=== PATIENT | female | born 1940 | race Caucasian/White ===

== ENCOUNTER 2021-09-13 11:05 | Emergency (ER) | payer MEDICARE, OTHER, SELFPAY ==
--- NOTE | ~2021-09-13 | CT_ITS ---
EXAMINATION: CT ABDOMEN AND PELVIS WITH CONTRAST CLINICAL INFORMATION: Severe right abdominal pain COMPARISON: None TECHNIQUE: Multidetector volumetric images were obtained from the superior aspect of the liver through the pubic symphysis following administration 85 mL of Omnipaque 350 intravenous contrast. Sagittal and coronal reformatted images were obtained on the technologist's workstation. Oral contrast: Yes This CT examination was performed using dose optimization techniques as appropriate, variously including the following: *Automated exposure control *Adjustment of mA and/or kV according to patient size (this includes techniques or standardized protocols for targeted exams where dose is matched to indication/reason for exam; i.e. extremities or head) *Use of iterative reconstruction technique DLP: 736 mGy-cm FINDINGS: LUNG BASES: The visualized lung bases are unremarkable. LIVER, GALLBLADDER, AND BILIARY TREE: The liver is slightly low in attenuation suggestive of mild fatty infiltration. The liver is upper normal in size. The gallbladder has been removed. There is mild dilatation of the common bile duct measuring 1 cm. This may be normal postcholecystectomy. PANCREAS: Unremarkable. SPLEEN: Unremarkable. ADRENAL GLANDS: There is a 1.8 cm left adrenal lesion. Hounsfield units following contrast measure 72 which is indeterminate. The right adrenal gland is normal. KIDNEYS AND URETERS: There are bilateral renal cysts. No imaging follow-up is needed. There is mild right hydronephrosis. There is mild proximal right ureteral dilatation. No renal or ureteral stone is seen. BLADDER: Unremarkable. GASTROINTESTINAL TRACT: There is diverticulosis of the colon. No evidence of diverticulitis is seen. The small and large bowel is otherwise unremarkable. The appendix is not seen. There are no inflammatory changes in the right lower quadrant. The stomach is unremarkable. ABDOMINAL WALL: No significant hernia is appreciated. LYMPH NODES: Normal. VASCULAR: There is evidence of atherosclerotic disease. PELVIC VISCERA: There is a 5 cm left adnexal cyst. OSSEOUS STRUCTURES: There are degenerative changes of the spine. CT/CT abdomen pelvis w con IMPRESSION: Diverticulosis of the colon. No evidence of diverticulitis. Appendix not seen. No inflammatory changes in the right lower quadrant. Mild right hydronephrosis and proximal ureteral dilatation. No renal or ureteral stone seen. Bilateral renal cysts. 5 cm left ovarian cyst. Follow-up pelvic ultrasound recommended. Fleischner guidelines were followed.
--- NOTE | ~2021-09-13 | US_ITS ---
EXAMINATION: US PELVIS CLINICAL INFORMATION: Left ovarian cyst. Pain. History of hysterectomy. COMPARISON: CT from earlier the same day. TECHNIQUE: Ultrasound of the pelvis is performed using both transabdominal and transvaginal transducers along with Doppler. Transvaginal imaging is performed due to inadequate visualization transabdominally. Grayscale, color and Doppler imaging of the left ovary was performed including waveform spectral analysis. FINDINGS: The uterus has been removed. The cervix is normal appearing. The right ovary is not seen. The left ovary measures 6.2 x 4.3 x 5.6 cm. There is a 5.3 x 3.6 x 4.4 cm simple left ovarian cyst. Color and Doppler flow is seen in the left ovarian tissue surrounding the cyst. There is no evidence of left-sided torsion. There is no fluid in the pelvis. US/US pelvic and transvaginal IMPRESSION: Post hysterectomy. 5.3 x 3.6 x 4.4 cm simple left ovarian cyst. No evidence of left-sided torsion. Right ovary not seen. Given size and postmenopausal status, imaging follow up of the left ovarian cyst is recommended.
--- NOTE | ~2021-09-13 | US_ITS ---
EXAMINATION: US PELVIS CLINICAL INFORMATION: Left ovarian cyst. Pain. History of hysterectomy. COMPARISON: CT from earlier the same day. TECHNIQUE: Ultrasound of the pelvis is performed using both transabdominal and transvaginal transducers along with Doppler. Transvaginal imaging is performed due to inadequate visualization transabdominally. Grayscale, color and Doppler imaging of the left ovary was performed including waveform spectral analysis. FINDINGS: The uterus has been removed. The cervix is normal appearing. The right ovary is not seen. The left ovary measures 6.2 x 4.3 x 5.6 cm. There is a 5.3 x 3.6 x 4.4 cm simple left ovarian cyst. Color and Doppler flow is seen in the left ovarian tissue surrounding the cyst. There is no evidence of left-sided torsion. There is no fluid in the pelvis. US/US pelvic ovarian doppler IMPRESSION: Post hysterectomy. 5.3 x 3.6 x 4.4 cm simple left ovarian cyst. No evidence of left-sided torsion. Right ovary not seen. Given size and postmenopausal status, imaging follow up of the left ovarian cyst is recommended.
[2021-09-13 11:20] VITALS: BP 162/95; BP 182/139; PULSE 100; PULSE 94; RESP 20; TEMP 36.9; O2SAT 92; BMI 36.0
--- NOTE | 2021-09-13 11:35 | ECG_ITS ---
Test Reason : abdominal pain Blood Pressure : / mmHG Vent. Rate : 083 BPM Atrial Rate : 083 BPM P-R Int : 160 ms QRS Dur : 092 ms QT Int : 402 ms P-R-T Axes : 064 036 045 degrees QTc Int : 472 ms Normal sinus rhythm Normal ECG When compared with ECG of 19-JAN-2018 16:51, No significant change was found Referred By: Elsa Benavides Electronically Signed By:ULISES PATEL
--- NOTE | 2021-09-13 11:48 | ED_ITS ---
HPI - Abdominal Pain General Chief Complaint: Abdominal Pain Stated Complaint: flank pain x1 month Time Seen by Provider: 09/13/21 11:16 Source: patient Mode of arrival: EMS Limitations: no limitations History of Present Illness HPI narrative: Patient is a 81-year-old female with a past medical history of diabetes, single occurence of renal calculi, history of cholecystectomy, history of appendectomy. She presents to the emergency department via EMS with reports of severe right- sided abdominal pain. Onset of pain was 1 month ago. However when she woke this morning there is a severe increase in her pain, she presents and tears and guarding the right side of her abdomen, she contacted her primary care provider she was advised to come to the emergency department. She states that she has not yet been evaluated in person by her primary care provider for this. There is associated nausea but there is no vomiting. Pain is non-radiating. Unable to identify alleviating or aggravating factors. She has not taking any medication at home for the pain. She did receive IV Toradol from EMS without significant improvement. She denies fevers, chills, dizziness/lightheadedness, neck pain, chest pain, palpitations, shortness of breath, dyspnea on exertion, dysuria, urinary frequency/urgency/hesitancy, hematuria, constipation/diarrhea, bloody or dark stools. MD elicited complaint: abdominal pain Related Data Previous Rx's Medication Instructions Recorded tamsulosin 0.4 mg capsule 0.4 mg PO BEDTIME 7 Days #7 cap 09/13/21 Allergies Allergy/AdvReac Type Severity Reaction Status Date / Time bee pollen [BEE STINGS] Allergy Unknown UNKNOWN Verified 09/13/21 12:11 morphine [MORPHINE] Allergy Unknown UNKNOWN Verified 09/13/21 12:11 Penicillins [PENICILLINS] Allergy Unknown UNKNOWN Verified 09/13/21 12:11 Review of Systems Review of Systems Constitutional : No Weight loss, No Fever, No Chills ENT/Mouth :? No sore throat, No Rhinorrhea Eyes: No Swelling, No Redness Cardiovascular : No Chest Pain, No SOB, No Edema Respiratory : No Cough, No Sputum, No Wheezing Gastrointestinal : Positive Nausea, No Vomiting, No Diarrhea, positive abdominal pain, No Hematochezia, No Melena Genitourinary : No Dysuria, No Urinary Frequency, No Hematuria, No Urgency? Musculoskeletal : No joint pain, No Myalgias, No Joint Swelling Skin : No Skin Lesions, No rash Neuro : No Weakness, No Numbness, No Dizziness, No Headache Psych : No Anxiety/Panic, No Depression Heme/Lymph: No Bruising, No Lymphadenopathy Endocrine : No Polyuria, No Polydipsia All other systems reviewed and are negative. [facility] [place] Past Medical History Attestation statement: The following information was validated with the patient. Source: nursing notes reviewed Social History Social History Advance Directives: No Advance Directives Information Provided: No Physical Exam ED Vital Signs: Vital Signs - 24 hr 09/13/21 11:20 09/13/21 12:08 09/13/21 14:18 Temperature 98.4 F Pulse Rate 94 88 97 Respiratory Rate 20 16 14 Blood Pressure 182/139 H 154/69 H 185/95 H Pulse Oximetry 92 97 95 BMI result Body Mass Index 36.0 Vital signs have been reviewed and appeared to be correct. Blood pressure elevated 182/139 initially that is significantly improved on repeat 154/69. Heart rate normal.? Respiration rate normal. Temperature normal.? Oxygen saturation normal. Appearance: Alert.?Oriented to person, place and time. No acute distress.?Normal affect. Eyes: Pupils equal, round and reactive to light.? ENT: Pharynx normal.?? Neck: Normal inspection.? Neck supple.?? CVS: Heart sounds normal. Normal heart rate and rhythm.? Pulses normal.?? Respiratory: No respiratory distress.? Lung sounds clear to auscultation bilaterally?? Abdomen: Soft, reported tenderness with light palpation of the right side of the abdomen, guarding. Normoactive bowel sounds. No pulsatile mass.?? Skin: Skin warm and dry.? Normal skin color.? Normal skin turgor.?? Extremities: No lower extremity edema.? No calf ttp? Neuro: Moves all extremities spontaneously. Sensation intact bilaterally. CN II- XII intact. No focal neuro deficits. Ambulates with normal steady gait. Course Course Course Narrative: Patient is a 81-year-old female presented for evaluation of severe right-sided abdominal pain status post cholecystectomy and status post appendectomy in the past. Will obtain CBC to evaluate for leukocytosis/ anemia, CMP and lipase to evaluate for abnormal electrolytes /abnormal renal function/ abnormal hepatic/biliary function, EKG and troponin to evaluate for ischemia/ACS. Urinalysis to evaluate for infection. CT of the abdomen to evaluate for pyelonephritis/hydronephrosis, renal calculi. She will receive normal saline 1L IV fluid, Zofran 4 mg IV for nausea, given her allergy to morphine; anaphylaxis, will administer additional dose of Toradol 15 mg at this time, she already received a single dose of 15mg pre-hospital. Reevaluation(s) Reevaluation #1: COVID-19 testing is negative. CBC reveals mild leukocytosis of 13.4. CMP and lipase are unremarkable, glucose is elevated to 259 patient is diabetic. Troponin is negative, EKG normal sinus rhythm, ACS unlikely. Reports improvement in pain currently a 2/10. CT of the abdomen is pending at this time. Time: 13:30 Reevaluation #2: Urinalysis is significant for 1+ blood. CT of the abdomen reveals mild right hydronephrosis and proximal ureteral dilation, no renal or ureteral stones seen. Incidental finding of bilateral renal cysts and 5 cm left ovarian cyst, with recommendations for follow-up pelvic ultrasound. Currently, patient denies pain to the left side the abdomen, however referred visceral pain is possible, given the significant size will obtain ultrasound at this time to exclude torsion. Currently suspect right-sided pain is likely contributed to renal calculi based on history, physical exam, microscopic hematuria and CT findings, will provide pain control and treat with Flomax, and outpatient follow-up with Urology. Time: 15:00 Reevaluation #3: Patient updated on plan of care thus far. Patient signed out to Shwetha Archuleta NP pending pelvic ultrasound results. Time: 16:26 MDM - Abdominal Pain Medical Records Attestation: I reviewed the patient's medical records. Lab Data Attestation: I reviewed the patient's lab results. Result diagrams: 09/13/21 12:56 09/13/21 12:56 Labs: Lab Results 09/13/21 09/13/21 09/13/21 Range/Units 12:36 12:36 12:55 WBC (4.8-10.8) X10*3/uL RBC (4.20-5.50) X10*6/uL Hgb (12.0-16.0) g/dl Hct (37.0-47.0) % MCV (80.0-98.0) fL MCH (27.0-33.0) pg MCHC (31.0-35.0) g/dl RDW (11.0-16.0) % Plt Count (160-400) X10*3/uL MPV (9.4-12.3) fL Immature Gran % (Auto) (0.0-0.4) % Neut % (Auto) (45-73) % Lymph % (Auto) (20-40) % [place] % (Auto) (2-11) % Eos % (Auto) (0-4) % Baso % (Auto) (0-2) % Lymph # (Auto) (1.2-4.9) X10*3/uL [place] # (Auto) (0.1-1.2) X10*3/uL Eos # (Auto) (0.0-0.4) X10*3/uL Baso # (Auto) (0.0-0.2) X10*3/uL Abs Immat Gran (auto) (0.00-0.03) X10*3/uL Absolute Neuts (auto) (2.0-8.3) x10*3/uL Absolute Nucleated RBC (0.0-0.012) X10*3/uL Nucleated RBC % (auto) (0.0-0.2) /100WBC Sodium (135-145) mmol/L Potassium (3.3-5.1) mmol/L Chloride (96-108) mmol/L Carbon Dioxide (22-29) mmol/L Anion Gap (12-20) BUN (9-16) mg/dL Creatinine (0.5-1.4) mg/dL Estim Creat Clear Calc Estimated GFR POC Glucose (60-115) mg/dL Random Glucose (60-115) mg/dL Lactic Acid (0.5-2.0) mmol/L Calcium (8.4-10.2) mg/dL Total Bilirubin (0.0-1.0) mg/dL AST (5-31) U/L ALT (0-31) U/L Alkaline Phosphatase (39-117) U/L Troponin I High Sens < 3.5 (<3.5-17.0) ng/L Total Protein (6.5-8.0) g/dL Albumin (3.5-5.0) g/dL Lipase (8-78) U/L Urine Color YELLOW Urine Appearance HAZY Urine pH 6.0 (5.0-8.0) Ur Specific [place] 1.025 (1.005-1.025) Urine Protein 2+ H (NEG-TRACE) MG/DL Urine Glucose (UA) 100 H (NEG) MG/DL Urine Ketones NEG (NEG) MG/DL Urine Blood 1+ H (NEG) Urine Nitrite NEG (NEG) Ur Leukocyte Esterase NEG (NEG) Urine RBC 1-4 (0) /HPF Urine WBC 1-4 (0-4) /HPF Ur Squamous Epith Cells 2+ /LPF Urine Bacteria 2+ /LPF Urine Mucus 1+ /LPF COVID-19 (BECCA) Negative (Negative) COVID-19 Clin Com See Note 09/13/21 09/13/21 09/13/21 Range/Units 12:56 12:56 12:56 WBC 13.4 H (4.8-10.8) X10*3/uL RBC 4.98 (4.20-5.50) X10*6/uL Hgb 12.6 (12.0-16.0) g/dl Hct 41.2 (37.0-47.0) % MCV 82.7 (80.0-98.0) fL MCH 25.3 L (27.0-33.0) pg MCHC 30.6 L (31.0-35.0) g/dl RDW 15.9 (11.0-16.0) % Plt Count 403 H (160-400) X10*3/uL MPV 10.1 (9.4-12.3) fL Immature Gran % (Auto) 0.7 H (0.0-0.4) % Neut % (Auto) 71.5 (45-73) % Lymph % (Auto) 18.5 L (20-40) % [place] % (Auto) 5.7 (2-11) % Eos % (Auto) 3.2 (0-4) % Baso % (Auto) 0.4 (0-2) % Lymph # (Auto) 2.5 (1.2-4.9) X10*3/uL [place] # (Auto) 0.8 (0.1-1.2) X10*3/uL Eos # (Auto) 0.4 (0.0-0.4) X10*3/uL Baso # (Auto) 0.1 (0.0-0.2) X10*3/uL Abs Immat Gran (auto) 0.09 H (0.00-0.03) X10*3/uL Absolute Neuts (auto) 9.6 H (2.0-8.3) x10*3/uL Absolute Nucleated RBC 0.000 (0.0-0.012) X10*3/uL Nucleated RBC % (auto) 0.0 (0.0-0.2) /100WBC Sodium 138 (135-145) mmol/L Potassium 4.5 (3.3-5.1) mmol/L Chloride 103 (96-108) mmol/L Carbon Dioxide 25 (22-29) mmol/L Anion Gap 15 (12-20) BUN 17 H (9-16) mg/dL Creatinine 1.04 (0.5-1.4) mg/dL Estim Creat Clear Calc 42.1 Estimated GFR 51 POC Glucose (60-115) mg/dL Random Glucose 259 H (60-115) mg/dL Lactic Acid 2.0 (0.5-2.0) mmol/L Calcium 9.3 (8.4-10.2) mg/dL Total Bilirubin 0.5 (0.0-1.0) mg/dL AST 21 (5-31) U/L ALT 18 (0-31) U/L Alkaline Phosphatase 89 (39-117) U/L Troponin I High Sens (<3.5-17.0) ng/L Total Protein 7.1 (6.5-8.0) g/dL Albumin 3.9 (3.5-5.0) g/dL Lipase 43 (8-78) U/L Urine Color Urine Appearance Urine pH (5.0-8.0) Ur Specific [place] (1.005-1.025) Urine Protein (NEG-TRACE) MG/DL Urine Glucose (UA) (NEG) MG/DL Urine Ketones (NEG) MG/DL Urine Blood (NEG) Urine Nitrite (NEG) Ur Leukocyte Esterase (NEG) Urine RBC (0) /HPF Urine WBC (0-4) /HPF Ur Squamous Epith Cells /LPF Urine Bacteria /LPF Urine Mucus /LPF COVID-19 (BECCA) (Negative) COVID-19 Clin Com 09/13/21 Range/Units 14:30 WBC (4.8-10.8) X10*3/uL RBC (4.20-5.50) X10*6/uL Hgb (12.0-16.0) g/dl Hct (37.0-47.0) % MCV (80.0-98.0) fL MCH (27.0-33.0) pg MCHC (31.0-35.0) g/dl RDW (11.0-16.0) % Plt Count (160-400) X10*3/uL MPV (9.4-12.3) fL Immature Gran % (Auto) (0.0-0.4) % Neut % (Auto) (45-73) % Lymph % (Auto) (20-40) % [place] % (Auto) (2-11) % Eos % (Auto) (0-4) % Baso % (Auto) (0-2) % Lymph # (Auto) (1.2-4.9) X10*3/uL [place] # (Auto) (0.1-1.2) X10*3/uL Eos # (Auto) (0.0-0.4) X10*3/uL Baso # (Auto) (0.0-0.2) X10*3/uL Abs Immat Gran (auto) (0.00-0.03) X10*3/uL Absolute Neuts (auto) (2.0-8.3) x10*3/uL Absolute Nucleated RBC (0.0-0.012) X10*3/uL Nucleated RBC % (auto) (0.0-0.2) /100WBC Sodium (135-145) mmol/L Potassium (3.3-5.1) mmol/L Chloride (96-108) mmol/L Carbon Dioxide (22-29) mmol/L Anion Gap (12-20) BUN (9-16) mg/dL Creatinine (0.5-1.4) mg/dL Estim Creat Clear Calc Estimated GFR POC Glucose 211 H (60-115) mg/dL Random Glucose (60-115) mg/dL Lactic Acid (0.5-2.0) mmol/L Calcium (8.4-10.2) mg/dL Total Bilirubin (0.0-1.0) mg/dL AST (5-31) U/L ALT (0-31) U/L Alkaline Phosphatase (39-117) U/L Troponin I High Sens (<3.5-17.0) ng/L Total Protein (6.5-8.0) g/dL Albumin (3.5-5.0) g/dL Lipase (8-78) U/L Urine Color Urine Appearance Urine pH (5.0-8.0) Ur Specific [place] (1.005-1.025) Urine Protein (NEG-TRACE) MG/DL Urine Glucose (UA) (NEG) MG/DL Urine Ketones (NEG) MG/DL Urine Blood (NEG) Urine Nitrite (NEG) Ur Leukocyte Esterase (NEG) Urine RBC (0) /HPF Urine WBC (0-4) /HPF Ur Squamous Epith Cells /LPF Urine Bacteria /LPF Urine Mucus /LPF COVID-19 (BECCA) (Negative) COVID-19 Clin Com Imaging Data CT scan - abdomen: Radiologist's impression: IMPRESSION: Diverticulosis of the colon. No evidence of diverticulitis. Appendix not seen. No inflammatory changes in the right lower quadrant. Mild right hydronephrosis and proximal ureteral dilatation. No renal or ureteral stone seen. Bilateral renal cysts. 5 cm left ovarian cyst. Follow-up pelvic ultrasound recommended. ECG Data Attestation: I personally reviewed and interpreted this ECG as follows: ECG interpretation date: 09/13/21 ECG interpretation time: 12:43 Prior ECG tracings: available for review Interpretation: Rate: Normal sinus rhythm Rhythm:? 83 [place]:? Normal Normal P waves.? Normal HALEY.?? Normal QRS complex.?? ST T wave :??No ST elevation, ST depression, T-wave inversion qTC: 472 prior studies:? January 2018 The study has been interpreted contemporaneously by me. Discharge Plan Discharge Clinical Impression: Calculus of kidney, Hydronephrosis, Left ovarian cyst Patient Disposition: Still a Patient Instructions: Kidney Stones (ED), Hydronephrosis (ED) Additional Instructions: The CT of your abdomen reveals mild swelling of your right kidney, and your urine testing reveals microscopic blood, it is most likely that you have a kidney stone that was not visualized on the CT scan. Please stay well hydrated. You have been given a new prescription for medication called tamsulosin please take this in the evening. You have been provided with contact information for urology and I would recommend scheduling a follow-up appointment with their office next week. You may return to the emergency department with any new or worsening signs or symptoms; this includes but is not limited to fevers, chills, chest pain, shortness of breath, nausea with persistent vomiting severe worsening abdominal pain, blood in urine, pain on urination, inability to urinate. The CT scan of your abdomen for revealed a 5 cm cyst to the left ovary. We performed an ultrasound for better visualization. Prescriptions: New tamsulosin 0.4 mg capsule 0.4 mg PO BEDTIME 7 Days Qty: 7 0RF Referrals: Sina Queen MD [Physician] - 2 days Alfredo Hannon MD [Physician] - 2 days (left ovarian cyst)
[2021-09-13 12:08] VITALS: BP 154/69; PULSE 88; RESP 16; O2SAT 97
[2021-09-13] MEDS: ondansetron HCL 4 MG/2 ML VIAL IVPUSH (12:11)
[2021-09-13] MEDS: 0.9 % Sodium Chloride 1,000 ML 999 ML IV (12:19)
[2021-09-13] MEDS: Ketorolac Tromethamine 15 MG/ML VIAL IVPUSH (12:19)
[2021-09-13 12:47] LABS: Appearance Urine HAZY; Color Urine YELLOW; Glucose Urine UA 100 MG/DL (NEG); Leukocyte Esterase Urine NEG (NEG); Nitrite Urine NEG (NEG); Specific Gravity - Urine 1.025 (1.005-1.025); UACC Culture Trigger NO; Urine Blood 1+ (NEG); Urine Ketones NEG (NEG); Urine Protein 2+ MG/DL (NEG-TRACE)
[2021-09-13 12:59] LABS: MANUAL DIFF FLAG NO
[2021-09-13 13:00] LABS: COVID-19 Test Negative (Negative); IDNOW Serial# 16C4AD1C
[2021-09-13 13:07] LABS: Basophils Absolute Auto 0.1 X10*3/uL (0.0-0.2); Basophils Percent Auto 0.4 % (0-2); Eosinophils Absolute Auto 0.4 X10*3/uL (0.0-0.4); Eosinophils Percent Auto 3.2 % (0-4); Hematocrit 41.2 % (37.0-47.0); Hemoglobin 12.6 g/dl (12.0-16.0); Imm Gran Abs Auto 0.09 X10*3/uL (0.00-0.03); Imm Gran Pct Auto 0.7 % (0.0-0.4); Lymphocytes Absolute Auto 2.5 X10*3/uL (1.2-4.9); Lymphocytes Percent Auto 18.5 % (20-40); Mean Corpuscular HGB Conc 30.6 g/dl (31.0-35.0); Mean Corpuscular Hemoglobin 25.3 pg (27.0-33.0); Mean Corpuscular Volume 82.7 fL (80.0-98.0); Mean Platelet Volume 10.1 fL (9.4-12.3); Monocytes Absolute Auto 0.8 X10*3/uL (0.1-1.2); Monocytes Percent Auto 5.7 % (2-11); Neutrophils Absolute Auto 9.6 x10*3/uL (2.0-8.3); Neutrophils Percent Auto 71.5 % (45-73); Platelet Count 403 X10*3/uL (160-400); Red Blood Count 4.98 X10*6/uL (4.20-5.50); Red Cell Distribution Width 15.9 % (11.0-16.0); White Blood Count 13.4 X10*3/uL (4.8-10.8)
[2021-09-13 13:16] LABS: Alanine Aminotransferase 18 U/L (0-31); Albumin Level 3.9 g/dL (3.5-5.0); Alkaline Phosphatase 89 U/L (39-117); Anion Gap 15 (12-20); Aspartate Amino Transferase 21 U/L (5-31); Bilirubin Total 0.5 mg/dL (0.0-1.0); Blood Urea Nitrogen 17 mg/dL (9-16); Calcium 9.3 mg/dL (8.4-10.2); Carbon Dioxide 25 mmol/L (22-29); Chloride 103 mmol/L (96-108); Creatinine Clr Calc Pharmacy 42.1; Estimated Glomerular Filt Rate 51; Glucose Random 259 mg/dL (60-115); Lipase 43 U/L (8-78); Potassium 4.5 mmol/L (3.3-5.1); Sodium 138 mmol/L (135-145); Total Protein 7.1 g/dL (6.5-8.0)
[2021-09-13 13:20] LABS: Bacteria Urine 2+ /LPF; Mucus Urine 1+ /LPF; Squamous Epithelial Cell Urine 2+ /LPF
[2021-09-13 13:21] LABS: Troponin-I High Sensitivity < 3.5 ng/L (<3.5-17.0)
[2021-09-13] MEDS: iohexoL 350 MG/ML 100 ML INFUS..BTL IV (13:54)
[2021-09-13 14:18] VITALS: BP 185/95; PULSE 97; RESP 14; O2SAT 95
[2021-09-13 14:33] LABS: Glucose, Whole Blood 211 mg/dL (60-115)
[2021-09-13 16:34] VITALS: BP 164/93; PULSE 93; RESP 16; TEMP 36.8; O2SAT 94
== END 2021-09-13 18:12 | disposition home or self-care (01) ==
PROVIDERS: Nurse Practitioner Family; Emergency Provider Emergency Medicine; PCP Hospitalist
DX: N13.2 Hydronephrosis with renal and ureteral calculous obstruction (principal); N83.202 Unspecified ovarian cyst, left side; K57.30 Diverticulosis of large intestine without perforation or abscess without bleeding; R10.31 Right lower quadrant pain; Z20.822 Contact with and (suspected) exposure to COVID-19; Z79.899 Other long term (current) drug therapy
CPT/HCPCS: 74177; 76830; 76856; 80053; 81001; 81003; 82947; 83605; 83690; 84484; 85025; 87635; 93005; 93975; 96361; 96374; 96375; 99284; J1885; J2405; Q9967

== ENCOUNTER 2021-09-17 11:55 | Emergency (ER) | payer MEDICARE, OTHER, SELFPAY ==
--- NOTE | ~2021-09-17 | CT_ITS ---
EXAMINATION: CT ABDOMEN AND PELVIS WITH CONTRAST CLINICAL INFORMATION: Right lower quadrant pain. COMPARISON: Previous CT of the abdomen and pelvis 09/13/2021. TECHNIQUE: Multidetector volumetric images were obtained from the superior aspect of the liver through the pubic symphysis following administration 85 mL of Omnipaque 350 intravenous contrast. Sagittal and coronal reformatted images were obtained on the technologist's workstation. Oral contrast: Yes This CT examination was performed using dose optimization techniques as appropriate, variously including the following: *Automated exposure control *Adjustment of mA and/or kV according to patient size (this includes techniques or standardized protocols for targeted exams where dose is matched to indication/reason for exam; i.e. extremities or head) *Use of iterative reconstruction technique DLP: 628 mGy-cm FINDINGS: LUNG BASES: The visualized lung bases are unremarkable. LIVER, GALLBLADDER, AND BILIARY TREE: The liver is normal in size, shape, and attenuation. No focal hepatic lesion or intrahepatic biliary ductal dilatation is present. The gallbladder has been removed. There is mild dilatation of the common bile duct measuring up to 1.2 cm. This may be normal postcholecystectomy. PANCREAS: Unremarkable. SPLEEN: Unremarkable. ADRENAL GLANDS: There is a 1.8 cm left adrenal lesion that is similar to previous exam. Measure 75 which is indeterminate. The right adrenal gland is normal. KIDNEYS AND URETERS: There are bilateral renal cysts. The kidneys are otherwise unremarkable. Previously identified mild right hydronephrosis and proximal ureteral dilatation is no longer seen. BLADDER: Not optimally distended. GASTROINTESTINAL TRACT: There is diverticulosis of the colon. No evidence of diverticulitis is seen. Small and large bowel is otherwise unremarkable. The appendix is not identified. There are no inflammatory changes in the right lower quadrant. There may be a small esophageal hernia. The stomach is otherwise unremarkable. ABDOMINAL WALL: No significant hernia is appreciated. LYMPH NODES: Normal. VASCULAR: There is atherosclerotic disease. No aneurysm is seen. PELVIC VISCERA: The uterus may have been removed. There is a 5 cm left adnexal cyst that is stable. OSSEOUS STRUCTURES: There are degenerative changes of the spine. CT/CT abdomen pelvis w con IMPRESSION: Diverticulosis of the colon. No evidence of colitis or diverticulitis. Appendix not seen. No inflammatory changes in the right lower quadrant. Post cholecystectomy. Mild dilatation of the common bile duct which may be normal postcholecystectomy. Bilateral renal cysts. Stable indeterminate 1.8 cm left adrenal lesion. Comparison with old outside exams if available is recommended. If no old exams are available or this is a new finding, dedicated CT or MRI according to adrenal gland protocol would be recommended. Stable left ovarian cyst. Fleischner guidelines were followed.
--- NOTE | ~2021-09-17 | XR_ITS ---
EXAMINATION: XR CHEST CLINICAL INFORMATION: Right-sided abdominal pain. COMPARISON: Chest 01/19/2018 TECHNIQUE: Frontal view of the chest was obtained. FINDINGS: Both lungs are fairly well-expanded and clear of acute pneumonic process. The heart size and pulmonary vascularity is normal. There is mild spondylosis dorsal spine. No lytic process seen. XR/XR chest 1V IMPRESSION: Unremarkable chest exam.
[2021-09-17 12:02] VITALS: BP 193/95; PULSE 95; O2SAT 95
[2021-09-17 12:12] VITALS: BP 160/87; PULSE 102; RESP 18; TEMP 36.7; O2SAT 99; BMI 36.0
--- NOTE | 2021-09-17 12:12 | ECG_ITS ---
Test Reason : PAIN ABD Blood Pressure : / mmHG Vent. Rate : 097 BPM Atrial Rate : 097 BPM P-R Int : 156 ms QRS Dur : 096 ms QT Int : 382 ms P-R-T Axes : 068 055 044 degrees QTc Int : 485 ms Normal sinus rhythm Normal ECG When compared with ECG of 13-SEP-2021 12:02, No significant change was found Referred By: Leonor Talbot Electronically Signed By:Darius Boo
--- NOTE | 2021-09-17 12:14 | ED.ABDPAIN ---
HPI - Abdominal Pain General Chief Complaint: Urogenital-Female Stated Complaint: KNOWN KIDNEY STONE PAIN Time Seen by Provider: 09/17/21 12:03 Source: patient and EMS Mode of arrival: EMS Limitations: no limitations History of Present Illness HPI narrative: 81-year-old female came in by ambulance for evaluation of right-sided abdominal pain. Right-sided abdominal pain started about a month ago, patient is localized to the right side of the abdomen and right flank pain, pain is intermittent comes and goes, described as severe 10/10, pain is accompanied with nausea and vomiting, but of fever chills or diarrhea no recent loss of weight, patient was seen on Thursday had a CT of the abdomen and pelvis which did not confirm a diagnosis of kidney stone but showed hydronephrosis, patient also found to have left ovarian cyst that was confirmed by ultrasound 5 cm ovarian cyst. No aggravating factors for the pain, no relieving factor. Patient had a history of appendectomy and cholecystectomy. Related Data Previous Rx's Medication Instructions Recorded tamsulosin 0.4 mg capsule 0.4 mg PO BEDTIME 7 Days #7 cap 09/13/21 oxycodone 5 mg tablet 5 mg PO BID PRN #10 tab 09/17/21 Allergies Allergy/AdvReac Type Severity Reaction Status Date / Time bee pollen [BEE STINGS] Allergy Unknown UNKNOWN Verified 09/13/21 12:11 morphine [MORPHINE] Allergy Unknown UNKNOWN Verified 09/13/21 12:11 Penicillins [PENICILLINS] Allergy Unknown UNKNOWN Verified 09/13/21 12:11 Review of Systems Review of Systems All other systems are reviewed and are negative Constitutional: Reports as per HPI and Reports no additional constitutional complaints Eyes: Reports as per HPI and Reports no additional eye complaints Reports system reviewed and no additional complaints, except as documented Cardiovascular: Reports as per HPI and Reports no additional cardiovascular complaints Respiratory: Reports as per HPI and Reports no additional respiratory complaints Gastrointestinal: Reports as per HPI and Reports no additional gastrointestinal complaints Genitourinary: Reports no additional female genitourinary complaints Musculoskeletal: Reports no additional musculoskeletal complaints Skin/Breast: Reports system reviewed and no additional complaints, except as docu Psychiatric: Reports no additional psychiatric complaints Endocrine: Reports no additional endocrine complaints Hematologic/Lymphatic: Reports no additional hematologic/lymphatic complaints Allergic/Immunologic: Reports no additional allergic/immunologic complaints Reports system reviewed and no additional complaints, except as documented and Reports Abnormal speech present [facility] Social History Social History Advance Directives: No Advance Directives Information Provided: No Physical Exam ED Vital Signs: Vital Signs - 24 hr 09/17/21 12:12 09/17/21 14:37 Temperature 98.1 F 97.8 F Pulse Rate 102 H 101 H Respiratory Rate 18 14 Blood Pressure 160/87 H 145/91 H Pulse Oximetry 99 95 BMI result Body Mass Index 36.0 Vital signs have been reviewed as appeared to be correct. Blood pressure normal. Heart rate normal. Respiration rate normal. Temperature normal. Oxygen saturation normal. Appearance: Alert. Oriented X3. No acute distress. Head: Normal external exam. Normocephalic. Atraumatic. No Cantor signs noted. No raccoon eyes noted Eyes: PERRLA. EOMI. Conjunctiva and sclera normal. Eyelids normal. ENT: TM's Normal. Pharynx normal. Uvula midline. Moist mucous membranes. No trismus noted. No drooling noted. No muffled voice noted. Neck: Normal inspection. Neck supple. FROM. No adenopathy. Thyroid Normal. No meningeal signs. No neck mass noted. CVS: Normal heart rate and rhythm. Heart sound normal. No murmurs noted. Pulses normal throughout. Respiratory: No respiratory distress. Painless inspiration. Breath sounds normal. No wheezes/rales/rhonchi noted. Chest nontender. No accessory muscle usage noted or decreased air movement noted. Abdomen: Soft and nontender. Bowel sounds normal in all 4 quadrants. No distention noted. No organomegaly noted. No visible injury noted. Back: No CVA tenderness. Full range of motion noted. Skin: Skin warm and dry. Normal skin color. Normal skin turgor. No rashes/lesions/lacerations noted. Extremities: No lower extremity edema. Extremities exhibit normal range of motion. Extremities nontender. Neuro: Oriented X 3. Cranial nerve exam: II-XII are grossly intact No motor deficit. No sensory deficit. Reflexes normal. Course Course Course Narrative: Assessment and plan. 81 years old female came in with chronic abdominal pain for a month, patient had a recent evaluation was sent home on tamsulosin which did not help her pain at home, came in with abdominal pain, patient used to take oxycodone for chronic pain. Lab finding is consistent with slight elevation of lipase about repeat CT of the abdomen pelvis with IV contrast showed no acute pancreatitis. Patient now feels better, hungry and tolerating p.o. intake. Patient was offered hospitalization for 1 day for observation and monitoring the abdominal pain but patient would like to go home. Will discharge patient home with oxycodone, patient was instructed to restrict fatty and greasy food. And follow-up with PCP. MDM - Abdominal Pain Medical Records Attestation: I reviewed the patient's medical records. Lab Data Attestation: I reviewed the patient's lab results. Result diagrams: 09/17/21 12:50 09/17/21 12:50 Labs: Lab Results 09/17/21 09/17/21 09/17/21 Range/Units 12:50 12:50 12:50 WBC 11.3 H (4.8-10.8) X10*3/uL RBC 5.17 (4.20-5.50) X10*6/uL Hgb 13.3 (12.0-16.0) g/dl Hct 42.1 (37.0-47.0) % MCV 81.4 (80.0-98.0) fL MCH 25.7 L (27.0-33.0) pg MCHC 31.6 (31.0-35.0) g/dl RDW 15.4 (11.0-16.0) % Plt Count 493 H (160-400) X10*3/uL MPV 9.6 (9.4-12.3) fL Immature Gran % (Auto) 0.6 H (0.0-0.4) % Neut % (Auto) 70.9 (45-73) % Lymph % (Auto) 19.5 L (20-40) % Hendry % (Auto) 5.8 (2-11) % Eos % (Auto) 2.7 (0-4) % Baso % (Auto) 0.5 (0-2) % Lymph # (Auto) 2.2 (1.2-4.9) X10*3/uL Hendry # (Auto) 0.7 (0.1-1.2) X10*3/uL Eos # (Auto) 0.3 (0.0-0.4) X10*3/uL Baso # (Auto) 0.1 (0.0-0.2) X10*3/uL Abs Immat Gran (auto) 0.07 H (0.00-0.03) X10*3/uL Absolute Neuts (auto) 8.0 (2.0-8.3) x10*3/uL Absolute Nucleated RBC 0.000 (0.0-0.012) X10*3/uL Nucleated RBC % (auto) 0.0 (0.0-0.2) /100WBC Sodium 133 L (135-145) mmol/L Potassium 3.9 (3.3-5.1) mmol/L Chloride 98 (96-108) mmol/L Carbon Dioxide 24 (22-29) mmol/L Anion Gap 15 (12-20) BUN 12 (9-16) mg/dL Creatinine 1.10 (0.5-1.4) mg/dL Estim Creat Clear Calc 38.2 Estimated GFR 48 Random Glucose 335 H (60-115) mg/dL Calcium 9.7 (8.4-10.2) mg/dL Total Bilirubin 0.5 (0.0-1.0) mg/dL Direct Bilirubin 0.2 (0.0-0.5) mg/dL AST 21 (5-31) U/L ALT 17 (0-31) U/L Alkaline Phosphatase 86 (39-117) U/L Troponin I High Sens < 3.5 (<3.5-17.0) ng/L B-Natriuretic Peptide 16 (<100) pg/mL Total Protein 6.9 (6.5-8.0) g/dL Albumin 3.8 (3.5-5.0) g/dL Lipase 252 H (8-78) U/L Urine Color Urine Appearance Urine pH (5.0-8.0) Ur Specific [place] (1.005-1.025) Urine Protein (NEG-TRACE) MG/DL Urine Glucose (UA) (NEG) MG/DL Urine Ketones (NEG) MG/DL Urine Blood (NEG) Urine Nitrite (NEG) Ur Leukocyte Esterase (NEG) Urine RBC (0) /HPF Urine WBC (0-4) /HPF Ur Squamous Epith Cells /LPF Urine Bacteria /LPF COVID-19 (BECCA) (Negative) COVID-19 Clin Com 09/17/21 09/17/21 Range/Units 12:50 14:36 WBC (4.8-10.8) X10*3/uL RBC (4.20-5.50) X10*6/uL Hgb (12.0-16.0) g/dl Hct (37.0-47.0) % MCV (80.0-98.0) fL MCH (27.0-33.0) pg MCHC (31.0-35.0) g/dl RDW (11.0-16.0) % Plt Count (160-400) X10*3/uL MPV (9.4-12.3) fL Immature Gran % (Auto) (0.0-0.4) % Neut % (Auto) (45-73) % Lymph % (Auto) (20-40) % Hendry % (Auto) (2-11) % Eos % (Auto) (0-4) % Baso % (Auto) (0-2) % Lymph # (Auto) (1.2-4.9) X10*3/uL Hendry # (Auto) (0.1-1.2) X10*3/uL Eos # (Auto) (0.0-0.4) X10*3/uL Baso # (Auto) (0.0-0.2) X10*3/uL Abs Immat Gran (auto) (0.00-0.03) X10*3/uL Absolute Neuts (auto) (2.0-8.3) x10*3/uL Absolute Nucleated RBC (0.0-0.012) X10*3/uL Nucleated RBC % (auto) (0.0-0.2) /100WBC Sodium (135-145) mmol/L Potassium (3.3-5.1) mmol/L Chloride (96-108) mmol/L Carbon Dioxide (22-29) mmol/L Anion Gap (12-20) BUN (9-16) mg/dL Creatinine (0.5-1.4) mg/dL Estim Creat Clear Calc Estimated GFR Random Glucose (60-115) mg/dL Calcium (8.4-10.2) mg/dL Total Bilirubin (0.0-1.0) mg/dL Direct Bilirubin (0.0-0.5) mg/dL AST (5-31) U/L ALT (0-31) U/L Alkaline Phosphatase (39-117) U/L Troponin I High Sens (<3.5-17.0) ng/L B-Natriuretic Peptide (<100) pg/mL Total Protein (6.5-8.0) g/dL Albumin (3.5-5.0) g/dL Lipase (8-78) U/L Urine Color YELLOW Urine Appearance HAZY Urine pH 6.5 (5.0-8.0) Ur Specific [place] 1.020 (1.005-1.025) Urine Protein 2+ H (NEG-TRACE) MG/DL Urine Glucose (UA) 250 H (NEG) MG/DL Urine Ketones 15 (NEG) MG/DL Urine Blood 1+ H (NEG) Urine Nitrite NEG (NEG) Ur Leukocyte Esterase NEG (NEG) Urine RBC 1-4 (0) /HPF Urine WBC 1-4 (0-4) /HPF Ur Squamous Epith Cells 4+ /LPF Urine Bacteria 4+ /LPF COVID-19 (BECCA) Negative (Negative) COVID-19 Clin Com See Note Imaging Data Abdomen CT with IV contrast.: Attestation: I personally reviewed and interpreted this imaging study as follows: Radiologist's impression: Diverticulosis of the colon. No evidence of colitis or diverticulitis. Appendix not seen. No inflammatory changes in the right lower quadrant. Post cholecystectomy. Mild dilatation of the common bile duct which may be normal postcholecystectomy. Bilateral renal cysts. Stable indeterminate 1.8 cm left adrenal lesion. Comparison with old outside exams if available is recommended. If no old exams are available or this is a new finding, dedicated CT or MRI according to adrenal gland protocol would be recommended. Stable left ovarian cyst. ECG Data Attestation: I personally reviewed and interpreted this ECG as follows: Interpretation: In normal sinus rhythm at 97 beats per minutes, normal axis deviation, normal intervals, no ST-T changes. Discharge Plan Discharge Clinical Impression: Chronic abdominal pain, Pancreatitis Patient Disposition: Home, Self-Care Instructions: Pancreatitis (ED) Prescriptions: New oxycodone 5 mg tablet 5 mg PO BID PRN (Reason: pain) Qty: 10 0RF No Action tamsulosin 0.4 mg capsule 0.4 mg PO BEDTIME 7 Days Qty: 7 0RF Referrals: Abare,Hunter [Primary Care Provider] - 2 days
[2021-09-17 12:55] LABS: MANUAL DIFF FLAG NO
[2021-09-17 13:00] LABS: Basophils Absolute Auto 0.1 X10*3/uL (0.0-0.2); Basophils Percent Auto 0.5 % (0-2); Eosinophils Absolute Auto 0.3 X10*3/uL (0.0-0.4); Eosinophils Percent Auto 2.7 % (0-4); Hematocrit 42.1 % (37.0-47.0); Hemoglobin 13.3 g/dl (12.0-16.0); Imm Gran Abs Auto 0.07 X10*3/uL (0.00-0.03); Imm Gran Pct Auto 0.6 % (0.0-0.4); Lymphocytes Absolute Auto 2.2 X10*3/uL (1.2-4.9); Lymphocytes Percent Auto 19.5 % (20-40); Mean Corpuscular HGB Conc 31.6 g/dl (31.0-35.0); Mean Corpuscular Hemoglobin 25.7 pg (27.0-33.0); Mean Corpuscular Volume 81.4 fL (80.0-98.0); Mean Platelet Volume 9.6 fL (9.4-12.3); Monocytes Absolute Auto 0.7 X10*3/uL (0.1-1.2); Monocytes Percent Auto 5.8 % (2-11); Neutrophils Percent Auto 70.9 % (45-73); Platelet Count 493 X10*3/uL (160-400); Red Blood Count 5.17 X10*6/uL (4.20-5.50); Red Cell Distribution Width 15.4 % (11.0-16.0); White Blood Count 11.3 X10*3/uL (4.8-10.8)
[2021-09-17 13:13] LABS: Alanine Aminotransferase 17 U/L (0-31); Albumin Level 3.8 g/dL (3.5-5.0); Alkaline Phosphatase 86 U/L (39-117); Anion Gap 15 (12-20); Aspartate Amino Transferase 21 U/L (5-31); Bilirubin Direct 0.2 mg/dL (0.0-0.5); Bilirubin Total 0.5 mg/dL (0.0-1.0); Blood Urea Nitrogen 12 mg/dL (9-16); Calcium 9.7 mg/dL (8.4-10.2); Carbon Dioxide 24 mmol/L (22-29); Chloride 98 mmol/L (96-108); Creatinine Clr Calc Pharmacy 38.2; Estimated Glomerular Filt Rate 48; Glucose Random 335 mg/dL (60-115); Lipase 252 U/L (8-78); Potassium 3.9 mmol/L (3.3-5.1); Sodium 133 mmol/L (135-145); Total Protein 6.9 g/dL (6.5-8.0)
[2021-09-17 13:16] LABS: COVID-19 Test Negative (Negative); IDNOW Serial# 16C4AD1C
[2021-09-17 13:18] LABS: B Type Natriuretic Peptide 16 pg/mL (<100); Troponin-I High Sensitivity < 3.5 ng/L (<3.5-17.0)
[2021-09-17] MEDS: ondansetron HCL 4 MG/2 ML VIAL IVPUSH (13:43)
[2021-09-17] MEDS: Morphine Sulfate 2 MG/ML CARTRIDGE 1 MG IVPUSH (13:43)
[2021-09-17] MEDS: 0.9 % Sodium Chloride 1,000 ML 999 ML IV (13:43)
[2021-09-17 14:37] VITALS: BP 145/91; PULSE 101; RESP 14; TEMP 36.6; O2SAT 95
[2021-09-17 14:45] LABS: Appearance Urine HAZY; Color Urine YELLOW; Glucose Urine UA 250 MG/DL (NEG); Leukocyte Esterase Urine NEG (NEG); Nitrite Urine NEG (NEG); PH 6.5 (5.0-8.0); UACC Culture Trigger NO; Urine Blood 1+ (NEG); Urine Ketones 15 MG/DL (NEG); Urine Protein 2+ MG/DL (NEG-TRACE)
[2021-09-17 14:52] LABS: Bacteria Urine 4+ /LPF; Squamous Epithelial Cell Urine 4+ /LPF
[2021-09-17] MEDS: iohexoL 350 MG/ML 100 ML INFUS..BTL IV (14:57)
== END 2021-09-17 18:30 | disposition home or self-care (01) ==
PROVIDERS: Emergency Provider Emergency Medicine; PCP Hospitalist
DX: K85.90 Acute pancreatitis without necrosis or infection, unspecified (principal); R10.9 Unspecified abdominal pain; R06.02 Shortness of breath; Z20.822 Contact with and (suspected) exposure to COVID-19; Z79.899 Other long term (current) drug therapy
CPT/HCPCS: 36415; 71045; 74177; 80048; 80076; 81001; 83690; 83880; 84484; 85025; 87635; 93005; 96361; 96374; 96375; 99283; 99284; J2270; J2405; Q9967

== ENCOUNTER 2021-11-25 08:45 | Emergency (ER) | payer MEDICARE, OTHER, SELFPAY ==
--- NOTE | 2021-11-25 | ECG_ITS ---
Test Reason : fall Blood Pressure : / mmHG Vent. Rate : 100 BPM Atrial Rate : 100 BPM P-R Int : 166 ms QRS Dur : 098 ms QT Int : 380 ms P-R-T Axes : 060 040 045 degrees QTc Int : 490 ms Normal sinus rhythm Prolonged QT Abnormal ECG When compared with ECG of 17-SEP-2021 12:39, No significant change was found Referred By: Generic ED Physician Electronically Signed By:ROYER OSBORNE MD
--- NOTE | ~2021-11-25 | CT_ITS ---
EXAMINATION: CT CHEST WITHOUT CONTRAST CLINICAL INFORMATION: Fall 4 days ago. Right-sided chest pain. COMPARISON: Previous chest x-ray September 2021 TECHNIQUE: Multidetector volumetric CT imaging of the chest was done. Axial MIP volume rendering provided. Sagittal and coronal reformatted images were obtained. This CT examination was performed using dose optimization techniques as appropriate, variously including the following: *Automated exposure control *Adjustment of mA and/or kV according to patient size (this includes techniques or standardized protocols for targeted exams where dose is matched to indication/reason for exam; i.e. extremities or head) *Use of iterative reconstruction technique DLP: 276 mGy-cm FINDINGS: LUNGS: There is subsegmental atelectasis at the lung bases. There are small left upper lobe nodules measuring 3 mm axial image 142 170 and 176 series 7. There is increased peribronchial attenuation of the area may be related to airways disease or tree-in-bud appearance. There is a 3 mm peripheral or subpleural right middle lobe nodule axial image 287 series 7. There is mild bilateral lower lobe bronchiectasis. MEDIASTINUM: The heart size is normal. There is coronary artery calcification. There is a trace pericardial fluid or thickening. There are the thoracic aorta is normal in caliber. There are no enlarged hilar or mediastinal lymph nodes. There is an esophageal hernia. PLEURA: There is a very small right pleural effusion. There is no left pleural effusion. There is no pneumothorax. AXILLA: No lymphadenopathy. UPPER ABDOMEN: Unremarkable. OSSEOUS STRUCTURES: There is a right anterior eighth rib fracture that may be recent. There is question of nondisplaced right anterior sixth and seventh rib fractures as well. There is some soft tissue swelling surrounding the right anterior eighth rib. There is a small lipoma in the left subscapularis muscle. There are degenerative changes of the thoracic spine. CT/CT chest wo con IMPRESSION: Nondisplaced right anterior eighth rib fracture and question right sixth and seventh anterior rib fractures as well. Subsegmental atelectasis at the lung bases. Tiny right pleural effusion. No pneumothorax. Small clustered left upper lobe nodules probably related to airways disease. Coronary artery calcification. Fleischner guidelines were followed.
--- NOTE | ~2021-11-25 | CT_ITS ---
EXAMINATION: CT ABDOMEN AND PELVIS WITHOUT CONTRAST CLINICAL INFORMATION: Fall 4 days ago. Right-sided back pain. COMPARISON: Previous CT of the abdomen and pelvis 09/17/2021. TECHNIQUE: Multidetector volumetric imaging was performed from the superior aspect of the liver through the pubic symphysis. Sagittal and coronal reformatted images were obtained on the technologist's workstation. This CT examination was performed using dose optimization techniques as appropriate, variously including the following: *Automated exposure control *Adjustment of mA and/or kV according to patient size (this includes techniques or standardized protocols for targeted exams where dose is matched to indication/reason for exam; i.e. extremities or head) *Use of iterative reconstruction technique DLP: 622 mGy-cm FINDINGS: LUNG BASES: See chest CT from the same day. LIVER, GALLBLADDER, AND BILIARY TREE: The liver is normal in size, contour and attenuation. The gallbladder has been removed. There is mild dilatation of the common bile duct measuring up to 1.2 cm. This may be normal postcholecystectomy and is unchanged. No focal liver lesion or intrahepatic biliary duct dilatation. PANCREAS: Unremarkable. SPLEEN: Unremarkable. ADRENAL GLANDS: Stable 1.8 cm left adrenal lesion. Hounsfield units without contrast measure 20 which is indeterminate. Normal right adrenal gland. KIDNEYS AND URETERS: Stable bilateral renal cysts. No imaging followup needed. Kidneys are otherwise unremarkable. BLADDER: Unremarkable. GASTROINTESTINAL TRACT: Diverticulosis of the colon. Small and large bowel are otherwise normal. Appendix not seen. No free air. Small esophageal hernia. Otherwise normal stomach. ABDOMINAL WALL: No significant hernia is appreciated. LYMPH NODES: Normal. VASCULAR: Atherosclerotic disease. No aneurysm. PELVIC VISCERA: The uterus may have been removed. Stable 5 cm left adnexal cyst. OSSEOUS STRUCTURES: Degenerative changes of the spine. Question recent appearing right anterior 7th rib fracture and anterior 8th rib fracture. CT/CT abdomen pelvis wo con IMPRESSION: No acute findings in the abdomen and pelvis. Diverticulosis. Stable left adnexal and bilateral renal cysts. Stable indeterminate left adrenal lesion. Esophageal hernia. Question recent right anterior fractures. Severe degenerative changes of the spine. Fleischner guidelines were followed.
--- NOTE | ~2021-11-25 | CT_ITS ---
EXAMINATION: CT HEAD WITHOUT CONTRAST CLINICAL INFORMATION: Fall, trauma, pain COMPARISON: None TECHNIQUE: Contiguous axial imaging was performed from the skull base to vertex without intravenous administration of contrast. Additional 2-D coronal and sagittal reformatted images are generated on the CT workstation and uploaded to PACS. This CT examination was performed using dose optimization techniques as appropriate, variously including the following: *Automated exposure control *Adjustment of mA and/or kV according to patient size (this includes techniques or standardized protocols for targeted exams where dose is matched to indication/reason for exam; i.e. extremities or head) *Use of iterative reconstruction technique DLP: 660 mGy-cm FINDINGS: There is an extra-axial mass right posterior temporal occipital region abutting the tentorium measuring approximately 2.5 x 2.0 x 2.3 cm. The lesion is mildly hyperintense with scattered peripheral calcification. There is focal erosion and hyperostotic changes in the inner table skull. Finding likely related to meningioma. There is no acute intracranial hemorrhage or hematoma or extra-axial fluid collection. The ventricles are normal in size and contour. There are moderate periventricular white matter gliosis and bilateral symmetric decreased attenuation anterior internal and external capsule. There is no midline shift or herniation. Orbits unremarkable. No acute territorial infarct. The remainder of the calvarium shows no fracture and there is no pneumocephalus. There is nonspecific increased bony attenuation right parasagittal vertex and right lateral calvarium. There is also focal decreased mineralization right lateral parietal bone series 5 image 30. No expansile lesion. Report called Ashley Salinas NP in the emergency department at [address]/CT head/brain wo con IMPRESSION: -Mass right temporal occipital region 2.5 cm, likely meningioma. -Moderate periventricular and basal ganglia gliosis. No mass effect. No acute territorial infarct. -Scattered subtle sclerotic and lucent foci right calvarium without expansion. -No acute intracranial hemorrhage, hydrocephalus, or midline shift. -Recommend MRI brain without and with gadolinium for further characterization.
--- NOTE | ~2021-11-25 | CT_ITS ---
EXAMINATION: CT CERVICAL SPINE WITHOUT CONTRAST CLINICAL INFORMATION: Fall, trauma, pain COMPARISON: CT had noncontrast 11/25/2021. TECHNIQUE: Multidetector volumetric CT imaging of the cervical spine is performed without contrast in the axial plane. Additional 2D reformatted coronal and sagittal images are generated on the CT workstation and uploaded to PACS. This CT examination was performed using dose optimization techniques as appropriate, variously including the following: *Automated exposure control *Adjustment of mA and/or kV according to patient size (this includes techniques or standardized protocols for targeted exams where dose is matched to indication/reason for exam; i.e. extremities or head) *Use of iterative reconstruction technique DLP: 471 mGy-cm FINDINGS: There is no radiolucent fracture line. No vertebral compression, destructive process, or prevertebral soft tissue swelling. The craniocervical junction is normal. There are degenerative changes between anterior arch C1 and the dens. There is straightening of the cervical lordosis degenerative disc changes are greatest at C6-C7. There are also degenerative changes at C4-C5 and C5-C6 with probable disc herniation C5-C6. There are multilevel degenerative changes facets throughout the cervical spine. There is borderline spondylolisthesis C4-C5 likely related to the degenerative changes. No perched facet. No apical pneumothorax or subcutaneous emphysema. Intracranial findings again noted. See CT head report for further information. Result called and discussed with Ashley Salinas NP in the emergency department at [address]/CT cervical spine wo con IMPRESSION: -No acute bony abnormality or prevertebral soft tissue swelling. -Multilevel degenerative disc and degenerative facet changes. -Probable disc protrusion/herniation C5-C6. -Borderline spondylolisthesis C4-C5, likely related to the degenerative changes. -Intracranial abnormalities as noted on CT had, separate report.
[2021-11-25 08:52] VITALS: BP 155/105; BP 162/80; PULSE 90; PULSE 99; RESP 16; TEMP 36.6; O2SAT 95; BMI 31.8
[2021-11-25 09:07] LABS: Glucose, Whole Blood 279 mg/dL (60-115)
[2021-11-25 09:28] VITALS: BP 163/83; PULSE 88; RESP 18; O2SAT 95
[2021-11-25 09:44] LABS: MANUAL DIFF FLAG NO
[2021-11-25 09:46] LABS: Basophils Percent Auto 0.3 % (0-2); Eosinophils Absolute Auto 0.4 X10*3/uL (0.0-0.4); Hematocrit 39.4 % (37.0-47.0); Hemoglobin 12.2 g/dl (12.0-16.0); Imm Gran Abs Auto 0.07 X10*3/uL (0.00-0.03); Imm Gran Pct Auto 0.6 % (0.0-0.4); Lymphocytes Absolute Auto 1.8 X10*3/uL (1.2-4.9); Lymphocytes Percent Auto 14.8 % (20-40); Mean Corpuscular Volume 83.8 fL (80.0-98.0); Mean Platelet Volume 9.6 fL (9.4-12.3); Monocytes Absolute Auto 0.7 X10*3/uL (0.1-1.2); Monocytes Percent Auto 5.5 % (2-11); Neutrophils Absolute Auto 9.1 x10*3/uL (2.0-8.3); Neutrophils Percent Auto 75.8 % (45-73); Platelet Count 451 X10*3/uL (160-400); Red Cell Distribution Width 15.6 % (11.0-16.0)
[2021-11-25 10:05] LABS: Troponin-I High Sensitivity < 3.5 ng/L (<3.5-17.0)
[2021-11-25] MEDS: oxyCODONE HCl Immed Release 5 MG TABLET PO ×2 (10:05→12:41)
--- NOTE | 2021-11-25 10:06 | ED_ITS ---
HPI - Fall General Chief Complaint: Fall Stated Complaint: RIB PAIN S/P FALL PER EMS Time Seen by Provider: 11/25/21 09:35 Source: patient and EMS Mode of arrival: EMS Limitations: no limitations History of Present Illness HPI Narrative: 81 year old female w/ history of IDDM, legally blind here with reports of right- sided rib pain after a fall which occurred 4 days ago. Patient tells me she stood up from a chair and the next thing she knew she was on the ground. She is unsure if she passed out. She does believe she hit her head during the fall. She does not think that she had any dizziness, chest pain, palpitations or shortness of breath prior to the fall but she cannot be sure of this. She does take 81 mg of aspirin daily. No additional anticoagulation. Patient reports right-sided back and chest wall pain since the fall. Patient is worsened with deep breathing and coughing. Patient denies any shortness of breath, chest pain, neck pain, headache, vision changes, nausea, vomiting, weakness, numbness or tingling of the extremities. Related Data Previous Rx's Medication Instructions Recorded tamsulosin 0.4 mg capsule 0.4 mg PO BEDTIME 7 Days #7 cap 09/13/21 oxycodone 5 mg tablet 5 mg PO BID PRN #10 tab 09/17/21 lidocaine 5 % topical patch 1 patch TOPICAL DAILY #15 ea 11/25/21 (Lidoderm) oxycodone 5 mg tablet 5 mg PO Q8H PRN #10 tab 11/25/21 Allergies Allergy/AdvReac Type Severity Reaction Status Date / Time bee pollen [BEE STINGS] Allergy Unknown UNKNOWN Verified 09/13/21 12:11 morphine [MORPHINE] Allergy Unknown UNKNOWN Verified 09/13/21 12:11 Penicillins [PENICILLINS] Allergy Unknown UNKNOWN Verified 09/13/21 12:11 Review of Systems Review of Systems: Yes all other systems are reviewed and are negative Constitutional: Constitutional: Reports no additional constitutional complaints, Denies body ache(s), Denies chills, Denies fever(s), Denies headache(s) and Denies weakness Eyes: Eyes: Reports no additional eye complaints and Denies change in vision ENT: Reports system reviewed and no additional complaints, except as documented, Denies dizziness, Denies headache(s), Denies nasal congestion, Denies nasal discharge and Denies neck pain Cardiovascular: Cardiovascular: Reports no additional cardiovascular complaints, Reports chest pain, Denies leg edema and Denies dyspnea Respiratory: Respiratory: Reports no additional respiratory complaints, Denies cough and Denies dyspnea Gastrointestinal: Gastrointestinal: Reports no additional gastrointestinal complaints, Denies abdominal pain, Denies diarrhea, Denies nausea and Denies vomiting Genitourinary: Genitourinary: Reports no additional female genitourinary complaints and Denies urinary incontinence Musculoskeletal: Musculoskeletal: Reports no additional musculoskeletal complaints, Denies back pain, Denies arthralgias, Denies joint swelling, Denies neck pain, Denies numbness and Denies tingling Integumentary/Breasts: Skin/Breast: Reports system reviewed and no additional complaints, except as docu and Denies rash Neurologic: Reports system reviewed and no additional complaints, except as documented, Denies Abnormal speech present, Denies dizziness, Denies headache(s), Denies numbness, Denies tingling and Denies weakness PMFSH Past Medical History Attestation statement: The following information was validated with the patient. Source: old records reviewed and nursing notes reviewed Social History Social History Alcohol intake: never Patient Tobacco Use Status: Never used Tobacco Smoked in Last 30 Days: No Use of substances other than those prescribed or required for medical reasons: No Advance Directives: Yes Advance Directives Information Provided: Yes Advance Directives on File: No Physical Exam Vital Signs: Vital Signs: Last Vital Signs Temp 98.4 F 11/25/21 11:40 Pulse 85 11/25/21 12:00 Resp 15 11/25/21 12:00 BP 138/72 11/25/21 12:00 Pulse Ox 95 11/25/21 12:00 BMI result Body Mass Index 31.8 Const: General: cooperative, healthy appearing, comfortable and no acute distress Orientation/consciousness: patient oriented x3 Limitations: no limitations HEENT: Head: Yes normal to inspection Ears: hearing grossly normal bilater ally and TM's normal bilaterally General nose exam: Normal external nose present Face and sinus: Yes normal facial exam Mouth: Normal oral and palatal mucosa present Throat: Yes posterior oropharynx normal, Yes tonsils normal and Yes uvula midline Eyes: General: appearance normal, both eyes and all related structures Pupi ls: Equal, round and reactive pupils present Neck: Other: No cervical midline tenderness, step-offs deformities. Full range of motion Neck: Yes normal visual inspection, Yes full ROM, Yes no lymphadenopathy and Yes no meningeal signs Chest: Other: Tenderness to the posterior right chest wall, no ecchymosis or crepitus noted. No deformity noted. Chest palpation & inspection: normal inspection of the chest Resp: Effort & Inspection: normal respiratory effort Auscultation: clear to auscultation bilaterally Cardio: Rate: regular rate Rhythm: regular rhythm Peripheral pulses: Peripheral pulses 2+ throughout GI: Inspection: Yes normal to inspection Palpation (GI): Soft to palpation and nontender Auscultation: normal bowel sounds Back/Spine/Pelvis: Other: Tenderness to the posterior right thoracic and lumbar spine with no obvious ecchymosis, swelling or deformity. No midline tenderness, step-offs deformities. Thoracic/Lumbar Spine: thoracic and lumbar spine normal to inspection Skin: General skin exam: no rashes or lesions noted Neuro: General: patient oriented x3, no meningeal signs, no focal motor deficits, normal sensation to monofilament and Unable to assess gait Cranial nerves: Yes CN's II-XII intact bilaterally, Yes Equal, round and reactive pupils present, Yes Bilaterally intact EOM present, Yes Nystagmus not present, Yes Normal facial strength present and Yes Midline tongue present Cognition (Neuro): normal cognition Speech: No Abnormal speech present Gait exam (Neuro): Unable to assess gait Motor exam (neuro): 5/5 motor strength present throughout Sensory Exam: Normal double simultaneous stimulation for sensation Extrem: General: Yes normal to inspection, Yes no pedal edema and Yes no calf tenderness Course Course Course Narrative: 81-year-old female here after a fall 4 days ago with unknown cause of fall. There may or may not have been a head strike. Here with persistent right posterior chest wall and back pain. Will need labs, EKG, CT imaging of chest/abdomen/head and neck. Reevaluation(s) Reevaluation #1: Ct head shows Mass right temporal occipital region 2.5 cm, likely meningioma -no neuro deficits. No reports of headache. Likely incidental finding. Radiologist recommended MRI with and without contrast to evaluate further but I do not feel like and this needs to happen today and can be done on outpatient basis Time: 12:59 Reevaluation #2: CT chest shows 3 nondisplaced right rib fracture. Ct abdomen/pelvis shows no acute finding. Patient given incentive spirometer. I offered short-term rehab with patient feels like she needs this but she declined. Will discharge home with primary care follow-up for her CT finding. Reviewed worrisome signs and symptoms of when to return to the emergency department. Comfortable discharge home. Time: 13:50 MDM - Fall MDM Narrative Medical decision making narrative: Fracture, contusion Medical Records Attestation: I reviewed the patient's medical records. Lab Data Attestation: I reviewed the patient's lab results. Result diagrams: 11/25/21 09:41 11/25/21 09:58 Labs: Lab Results 11/25/21 11/25/21 11/25/21 Range/Units 09:01 09:41 09:41 WBC 12.0 H (4.8-10.8) X10*3/uL RBC 4.70 (4.20-5.50) X10*6/uL Hgb 12.2 (12.0-16.0) g/dl Hct 39.4 (37.0-47.0) % MCV 83.8 (80.0-98.0) fL MCH 26.0 L (27.0-33.0) pg MCHC 31.0 (31.0-35.0) g/dl RDW 15.6 (11.0-16.0) % Plt Count 451 H (160-400) X10*3/uL MPV 9.6 (9.4-12.3) fL Immature Gran % (Auto) 0.6 H (0.0-0.4) % Neut % (Auto) 75.8 H (45-73) % Lymph % (Auto) 14.8 L (20-40) % Mcdonough % (Auto) 5.5 (2-11) % Eos % (Auto) 3.0 (0-4) % Baso % (Auto) 0.3 (0-2) % Lymph # (Auto) 1.8 (1.2-4.9) X10*3/uL Mcdonough # (Auto) 0.7 (0.1-1.2) X10*3/uL Eos # (Auto) 0.4 (0.0-0.4) X10*3/uL Baso # (Auto) 0.0 (0.0-0.2) X10*3/uL Abs Immat Gran (auto) 0.07 H (0.00-0.03) X10*3/uL Absolute Neuts (auto) 9.1 H (2.0-8.3) x10*3/uL Absolute Nucleated RBC 0.000 (0.0-0.012) X10*3/uL Nucleated RBC % (auto) 0.0 (0.0-0.2) /100WBC Sodium (135-145) mmol/L Potassium (3.3-5.1) mmol/L Chloride (96-108) mmol/L Carbon Dioxide (22-29) mmol/L Anion Gap (12-20) BUN (9-16) mg/dL Creatinine (0.5-1.4) mg/dL Estim Creat Clear Calc Estimated GFR POC Glucose 279 H (60-115) mg/dL Random Glucose (60-115) mg/dL Calcium (8.4-10.2) mg/dL Total Bilirubin (0.0-1.0) mg/dL Direct Bilirubin (0.0-0.5) mg/dL AST (5-31) U/L ALT (0-31) U/L Alkaline Phosphatase (39-117) U/L Troponin I High Sens < 3.5 (<3.5-17.0) ng/L Total Protein (6.5-8.0) g/dL Albumin (3.5-5.0) g/dL 11/25/21 Range/Units 09:58 WBC (4.8-10.8) X10*3/uL RBC (4.20-5.50) X10*6/uL Hgb (12.0-16.0) g/dl Hct (37.0-47.0) % MCV (80.0-98.0) fL MCH (27.0-33.0) pg MCHC (31.0-35.0) g/dl RDW (11.0-16.0) % Plt Count (160-400) X10*3/uL MPV (9.4-12.3) fL Immature Gran % (Auto) (0.0-0.4) % Neut % (Auto) (45-73) % Lymph % (Auto) (20-40) % Mcdonough % (Auto) (2-11) % Eos % (Auto) (0-4) % Baso % (Auto) (0-2) % Lymph # (Auto) (1.2-4.9) X10*3/uL Mcdonough # (Auto) (0.1-1.2) X10*3/uL Eos # (Auto) (0.0-0.4) X10*3/uL Baso # (Auto) (0.0-0.2) X10*3/uL Abs Immat Gran (auto) (0.00-0.03) X10*3/uL Absolute Neuts (auto) (2.0-8.3) x10*3/uL Absolute Nucleated RBC (0.0-0.012) X10*3/uL Nucleated RBC % (auto) (0.0-0.2) /100WBC Sodium 137 (135-145) mmol/L Potassium 5.4 H D (3.3-5.1) mmol/L Chloride 101 (96-108) mmol/L Carbon Dioxide 26 (22-29) mmol/L Anion Gap 15 (12-20) BUN 19 H D (9-16) mg/dL Creatinine 1.10 (0.5-1.4) mg/dL Estim Creat Clear Calc 37.2 Estimated GFR 48 POC Glucose (60-115) mg/dL Random Glucose 309 H (60-115) mg/dL Calcium 9.7 (8.4-10.2) mg/dL Total Bilirubin 0.5 (0.0-1.0) mg/dL Direct Bilirubin < 0.2 (0.0-0.5) mg/dL AST 28 (5-31) U/L ALT 17 (0-31) U/L Alkaline Phosphatase 82 (39-117) U/L Troponin I High Sens (<3.5-17.0) ng/L Total Protein 7.5 (6.5-8.0) g/dL Albumin 3.8 (3.5-5.0) g/dL Imaging Data CT scan - chest: Attestation: I personally reviewed and interpreted this imaging study as follows: Radiologist's impression: FINDINGS: LUNGS: There is subsegmental atelectasis at the lung bases. There are small left upper lobe nodules measuring 3 mm axial image 142 170 and 176 series 7. There is increased peribronchial attenuation of the area may be related to airways disease or tree-in-bud appearance. There is a 3 mm peripheral or subpleural right middle lobe nodule axial image 287 series 7. There is mild bilateral lower lobe bronchiectasis. MEDIASTINUM: The heart size is normal. There is coronary artery calcification. There is a trace pericardial fluid or thickening. There are the thoracic aorta is normal in caliber. There are no enlarged hilar or mediastinal lymph nodes. There is an esophageal hernia.? PLEURA: There is a very small right pleural effusion. There is no left pleural effusion. There is no pneumothorax. AXILLA: No lymphadenopathy.? UPPER ABDOMEN: Unremarkable.? OSSEOUS STRUCTURES: There is a right anterior eighth rib fracture that may be recent. There is question of nondisplaced right anterior sixth and seventh rib fractures as well. There is some soft tissue swelling surrounding the right anterior eighth rib. There is a small lipoma in the left subscapularis muscle. There are degenerative changes of the thoracic spine. CT/CT chest wo con IMPRESSION: Nondisplaced right anterior eighth rib fracture and question right sixth and seventh anterior rib fractures as well. Subsegmental atelectasis at the lung bases. Tiny right pleural effusion. No pneumothorax. Small clustered left upper lobe nodules probably related to airways disease. Coronary artery calcification. ? Fleischner guidelines were followed. CT scan - head: Attestation: I personally reviewed and interpreted this imaging study as follows: Radiologist's impression: IMPRESSION: -Mass right temporal occipital region 2.5 cm, likely meningioma. -Moderate periventricular and basal ganglia gliosis. No mass effect. No acute territorial infarct. -Scattered subtle sclerotic and lucent foci right calvarium without expansion. -No acute intracranial hemorrhage, hydrocephalus, or midline shift. -Recommend MRI brain without and with gadolinium for further characterization. ? ct cervical spine: Attestation: I personally reviewed and interpreted this imaging study as follows: Radiologist's impression: The craniocervical junction is normal. There are degenerative changes between anterior arch C1 and the dens. There is straightening of the cervical lordosis degenerative disc changes are greatest at C6-C7. There are also degenerative changes at C4-C5 and C5-C6 with probable disc herniation C5-C6. There are multilevel degenerative changes facets throughout the cervical spine. There is borderline spondylolisthesis C4-C5 likely related to the degenerative changes. No perched facet. ECG Data Attestation: I personally reviewed and interpreted this ECG as follows: ECG interpretation date: 11/25/21 ECG interpretation time: 09:58 Interpretation: Normal sinus rhythm with a rate of 100, normal MS, normal QRS, QTC is mildly prolonged unchanged from previous Discharge Plan Discharge Clinical Impression: Closed rib fracture, Abnormal CT scan of head Patient Disposition: Home, Self-Care Additional Instructions: Your CT scan of your head shows what appears to be a meningioma. We discussed that you will need additional imaging to confirm this which should include an MRI with contrast. Please follow-up with your primary care doctor so that you may have this MRI. Your images also show 3 rib fractures on the right side. Please use your incentive spirometer every 2 hours while awake Return for fever, difficulty breathing as this may be a sign of pneumonia Prescriptions: New lidocaine [Lidoderm] 5 % adhesive patch,medicated 1 patch topical DAILY Qty: 15 0RF Rx Instructions: leave on most painful area for up to 12 hrs oxycodone 5 mg tablet 5 mg PO Q8H PRN (Reason: pain) Qty: 10 0RF No Action tamsulosin 0.4 mg capsule 0.4 mg PO BEDTIME 7 Days Qty: 7 0RF oxycodone 5 mg tablet 5 mg PO BID PRN (Reason: pain) Qty: 10 0RF Referrals: Physician,Unknown J [Primary Care Provider] - 1 week (For [address] scan finding)
[2021-11-25 10:26] LABS: Alanine Aminotransferase 17 U/L (0-31); Albumin Level 3.8 g/dL (3.5-5.0); Alkaline Phosphatase 82 U/L (39-117); Anion Gap 15 (12-20); Aspartate Amino Transferase 28 U/L (5-31); Bilirubin Direct < 0.2 mg/dL (0.0-0.5); Bilirubin Total 0.5 mg/dL (0.0-1.0); Blood Urea Nitrogen 19 mg/dL (9-16); Calcium 9.7 mg/dL (8.4-10.2); Carbon Dioxide 26 mmol/L (22-29); Chloride 101 mmol/L (96-108); Creatinine Clr Calc Pharmacy 37.2; Estimated Glomerular Filt Rate 48; Glucose Random 309 mg/dL (60-115); Potassium 5.4 mmol/L (3.3-5.1); Sodium 137 mmol/L (135-145); Total Protein 7.5 g/dL (6.5-8.0)
[2021-11-25 11:40] VITALS: BP 172/68; PULSE 92; RESP 13; TEMP 36.9; O2SAT 94
[2021-11-25 12:00] VITALS: BP 138/72; PULSE 85; RESP 15; O2SAT 95
[2021-11-25] MEDS: Acetaminophen 325 MG TABLET 975 MG PO (12:41)
== END 2021-11-25 15:10 | disposition home or self-care (01) ==
PROVIDERS: Nurse Practitioner Family; Emergency Provider Emergency Medicine
DX: S22.31XA Fracture of one rib, right side, initial encounter for closed fracture (principal); R93.0 Abnormal findings on diagnostic imaging of skull and head, not elsewhere classified; E11.9 Type 2 diabetes mellitus without complications; H54.8 Legal blindness, as defined in USA; Z79.4 Long term (current) use of insulin; Z79.82 Long term (current) use of aspirin; W18.30XA Fall on same level, unspecified, initial encounter; Y93.9 Activity, unspecified; Y92.9 Unspecified place or not applicable; Y99.9 Unspecified external cause status
CPT/HCPCS: 36415; 70450; 71250; 72125; 74176; 80048; 80076; 82947; 84484; 85025; 93005; 99284; 99285

== ENCOUNTER 2022-12-22 15:03 | Inpatient (IN) | payer MEDICARE, SELFPAY ==
--- NOTE | 2022-12-22 | ECG_ITS ---
Test Reason : Medical Clearance Blood Pressure : / mmHG Vent. Rate : 093 BPM Atrial Rate : 093 BPM P-R Int : 156 ms QRS Dur : 094 ms QT Int : 368 ms P-R-T Axes : 075 064 053 degrees QTc Int : 457 ms Normal sinus rhythm Normal ECG When compared with ECG of 25-NOV-2021 09:58, No significant change was found Referred By: Generic ED Physician Electronically Signed By:Darius Boo
--- NOTE | 2022-12-22 15:19 | MHC.CARE ---
CARE Team received call from Cullen Perdomo Co-Repsonse clinician Cherise, who reported pt is being sent to [facility] on [address] for suicidal ideation. Pt MINK RANCHER called crisis after Pt was declining blood sugar management and stated she wanted to . She reported to shipping agent multiple ways she wanted to compete suicide via stabbing herself or shooting herself with a gun. Note Pt does not own any current firearms but hx of owning them
[2022-12-22 15:20] VITALS: BP 116/62; BP 120/82; PULSE 100; PULSE 102; RESP 20; TEMP 37.1; O2SAT 97; O2SAT 98; BMI 37.8
[2022-12-22 15:48] LABS: Glucose, Whole Blood 43 mg/dL (60-115)
[2022-12-22 16:38] LABS: MANUAL DIFF FLAG NO
[2022-12-22 16:44] LABS: Appearance Urine Clear; Color Urine Yellow; Glucose Urine UA Negative (Negative); Leukocyte Esterase Urine Trace (Negative); Nitrite Urine Negative (Negative); PH 7.5 (5.0-9.0); UMIC TRIGGER UACC YES; Urine Blood Negative (Negative); Urine Ketones Negative (Negative); Urine Protein Trace mg/dL (Neg-Trace)
[2022-12-22 16:45] LABS: Basophils Absolute Auto 0.1 X10*3/uL (0.0-0.2); Basophils Percent Auto 0.5 % (0-2); Eosinophils Absolute Auto 0.5 X10*3/uL (0.0-0.4); Eosinophils Percent Auto 3.5 % (0-4); Hematocrit 41.6 % (37.0-47.0); Hemoglobin 12.9 g/dl (12.0-16.0); Imm Gran Abs Auto 0.07 X10*3/uL (0.00-0.03); Imm Gran Pct Auto 0.5 % (0.0-0.4); Lymphocytes Absolute Auto 3.4 X10*3/uL (1.2-4.9); Lymphocytes Percent Auto 24.7 % (20-40); Mean Corpuscular Hemoglobin 26.2 pg (27.0-33.0); Mean Corpuscular Volume 84.4 fL (80.0-98.0); Mean Platelet Volume 9.6 fL (9.4-12.3); Monocytes Percent Auto 7.2 % (2-11); Neutrophils Absolute Auto 8.7 x10*3/uL (2.0-8.3); Neutrophils Percent Auto 63.6 % (45-73); Platelet Count 536 X10*3/uL (160-400); Red Blood Count 4.93 X10*6/uL (4.20-5.50); Red Cell Distribution Width 15.6 % (11.0-16.0); White Blood Count 13.7 X10*3/uL (4.8-10.8)
[2022-12-22 16:48] LABS: Bacteria Urine 1+ (None Seen); RBC Urine 0-2 /HPF (0-2); WBC Urine 0-5 /HPF (0-5)
[2022-12-22 16:55] LABS: Amphetamine Screen Urine Not Detected (Not Detect); Barbiturates, Urine Not Detected (Not Detect); Benzodiazepines Screen Urine Not Detected (Not Detect); Cannabinoid Screen Urine Not Detected (Not Detect); Cocaine Screen Urine Not Detected (Not Detect); Fentanyl, urine Not Detected (Not Detect); Opiate Screen Urine Not Detected (Not Detect); Phencyclidine Screen Urine Not Detected (Not Detect)
[2022-12-22 16:58] LABS: Acetaminophen LAB < 17 mcg/mL (<30); Alanine Aminotransferase 18 U/L (0-31); Albumin Level 4.1 g/dL (3.5-5.0); Alkaline Phosphatase 85 U/L (39-117); Anion Gap 16 (12-20); Aspartate Amino Transferase 19 U/L (5-31); Bilirubin Total 0.3 mg/dL (0.0-1.0); Blood Urea Nitrogen 18 mg/dL (9-16); Carbon Dioxide 29 mmol/L (22-29); Chloride 103 mmol/L (96-108); Creatinine Clr Calc Pharmacy 44.2; Estimated Glomerular Filt Rate 51; Ethanol < 10 mg/dL; Glucose Random 75 mg/dL (60-115); Potassium 4.1 mmol/L (3.3-5.1); Salicylate < 5.0 mg/dL (15-30); Sodium 144 mmol/L (135-145); Total Protein 7.4 g/dL (6.5-8.0)
--- OUTSIDE RECORDS SUMMARY | 2022-12-22 16:59 | XMS_ITS | Continuity of Care Document ---
Author Name Unknown Organization [facility] Ser[facility] Address [address] [place] [address]- Care Team Providers Care Cab Station Attendant Name Role Phone Hunter Cortes MD Primary Care Physician Encounter [facility] Date(s): 09/08/19 - 11/30/19 [facility] [address] [place] [address]- [facility] Attending Physician: Hunter Cortes MD Allergies, Adverse Reactions, Alerts Substance Reaction Severity Status morphine anaflactic shock Active penicillins anaflactic shock Active Immunizations Given and Recorded Vaccine Date Status Refusal Reason influenza virus vaccine, inactivated 1 05/03/18 Gi adwoa influenza virus vaccine, inactivated 06/09/16 Give n influenza virus vaccine, inactivated 04/19/15 Give n tetanus/diphtheria/pertussis, acel(Tdap) 2 12/21/17 Given pneumococcal 23-valent vaccine 06/09/16 Given pneumococcal 13-valent vaccine 04/03/15 Given 1Result Comment: [05/03/2018] [facility]-[id number] 2Result Comment: [12/21/2017] [id number] Medications aspirin 81 mg oral tablet 1 tablet = 81 mg, By Mouth, Daily, # 30 tablet, 0 Refills, Maintenance, 04/03/15 13:17:10, Tablet Start Date: 04/03/15 Status: Ordered atorvastatin 10 mg oral tablet 1 tablet = 10 mg, By Mouth, Daily, # 30 tablet, 5 Refills, Maintenance, 11/10/19 12:44:00 EDT, Tablet, [facility], 152.1, cm, 06/14/19 10:04:00 EST, Height, 75.8, kg, 06/14/19 10:04:00 EST, Dry Weight Start Date: 11/10/19 Status: Ordered Auto Code Talking Prodigy Meter Auto Code Talking Prodigy Meter, See Instructions, # 1 each, Refills 0, Tot. Refills 0, Maintenance, Test BS 4x/day and prn for IDDM E11.9, 12/01/17 14:54:30 EDT, Compound Start Date: 12/01/17 Status: Ordered buPROPion 200 mg/12 hours (SR) oral tablet, extended release 1 tablet = 200 mg, By Mouth, 2 times a day, # 60 tablet, 5 Refills, Maintenance, 11/11/19 13:21:00 EDT, ER Tablet, [facility], 152.1, cm, 06/14/19 10:04:00 EST, Height, 75.8, kg, 06/14/19 10:04:00 EST, Dry Weight Start Date: 11/11/19 Status: Ordered Diabetic Shoes Diabetic Shoes, See Instructions, # 1 each, Refills 1, Tot. 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, 03/10/17 10:06:57, Compound Start Date: 03/10/17 Status: Ordered Fish Oil 1200 mg oral capsule 1 capsule = 1,200 mg, By Mouth, 3 times a day, 0 Refills, Maintenance, 04/03/15 13:16:01 Start Date: 04/03/15 Status: Ordered FLUoxetine 40 mg oral capsule See Instructions, TAKE (1) CAPSULE BY MOUTH DAILY, # 28 capsule, 5 Refills, Soft Stop, 11/10/19 13:26:00 EDT, [facility], 152.1, cm, 06/14/19 10:04:00 EST, Height, 75.8, kg, 06/14/19 10:04:00 EST, Dry Weight Start Date: 11/10/19 Status: Ordered furosemide 40 mg oral tablet 1, tablet, By Mouth, Daily, # 30 tablet, Refills 11, Tot. Refills 11, Maintenance, 10/13/19 12:45:00 EDT, Route to Pharmacy Electronically, [facility], 152.1, cm, 06/14/19 10:04:00 EST, Height, 75.8, kg, 06/14/19 10:04:00 EST, Dry Weight Start Date: 10/13/19 Status: Ordered Glucagon Emergency Kit for Low Blood Sugar 1 mg injection = 1 mg, Intramuscular, Once, repeat in 20 minutes if sugars are still < 60, # 1 kit, 11 Refills,Soft Stop, 02/27/17 10:15:11 Start Date: 02/27/17 Status: Ordered Humalog Kwik Pen 100 units/mL subcutaneous injection See Instructions, Inject SQ tid with meals if BS= 120-150: 17 units, 151-200: 19 units, 201-250: 21units, # 5 each, 5 Refills, Maintenance, 06/03/19 15:14:07 EST, 251-300: 23 units, 301-350: 25 units, 351-400: 27 units, > 400: 29 units and call PCP... Start Date: 06/03/19 Status: Ordered Lancets for Prodigy Auto Code Talking Meter Lancets for Prodigy Auto Code Talking Meter, See Instructions, # 1 each, Refills 6, Tot. Refills 6,Maintenance, Use as directed for DM II E11.9, E11.319 to test blood sugar 6-7 times daily, 12/04/1709:33:13, Compound Start Date: 12/04/16 Status: Ordered Levemir FlexTouch 100 units/mL subcutaneous solution See Instructions, INJECT 80 UNITS SUBCUTANEOUSLY DAILY, # 15 mL, 2 Refills, 11/11/19 13:21:00 EDT, [facility], 152.1, cm, 06/14/19 10:04:00 EST, Height, 75.8, kg, 06/14/19 10:04:00 EST, Dry Weight Start Date: 11/11/19 Status: Ordered levothyroxine 112 mcg (0.112 mg) oral capsule 1 capsule = 112 mcg, By Mouth, Daily, # 30 capsule, 5 Refills, Maintenance, 11/10/19 13:26:00 EDT, Capsule, [facility], Replaces 125mcg qday, 152.1, cm, 06/14/19 10:04:00 EST, Height,75.8, kg, 06/14/19 10:04:00 EST, Dry Weight Start Date: 11/10/19 Status: Ordered Yasmeen Sensors 14 day (dispense 2 monthly) Yasmeen Sensors 14 day (dispense 2 monthly), See Instructions, # 2 each, Refills 5, Tot. Refills 5, Maintenance, IDDM E11.9, 09/14/18 11:31:10 EST, Compound Start Date: 09/14/18 Status: Ordered lisinopril 40 mg oral tablet 1 tablet = 40 mg, By Mouth, Daily, # 30 tablet, 2 Refills, Maintenance, 11/10/19 13:26:00 EDT, Tablet, [facility], 152.1, cm, 06/14/19 10:04:00 EST, Height, 75.8, kg, 06/14/19 10:04:00 EST, Dry Weight Start Date: 11/10/19 Status: Ordered metFORMIN 500 mg oral tablet, extended release 2 tablet = 1,000 mg, By Mouth, Daily, # 60 tablet, 2 Refills, Maintenance, 11/10/19 13:26:00 EDT, ER Tablet, [facility], d/c 500 mg BID metformin RX please, 152.1, cm, 06/14/19 10:04:00 EST, Height, 75.8, kg, 06/14/19 10:04:00 EST, Dry Weight Start Date: 11/10/19 Status: Ordered Ocuvite Lutein By Mouth, Daily, 0 Refills, Maintenance, 04/03/15 13:16:39 Start Date: 04/03/15 Status: Ordered omeprazole 20 mg oral delayed release tablet 1 tablet = 20 mg, By Mouth, Daily, # 30 tablet, 11 Refills, Maintenance, 09/26/19 14:14:00 EDT, [facility], 152.1, cm, 06/14/19 10:04:00 EST, Height, 75.8, kg, 06/14/19 10:04:00 EST, Dry Weight Start Date: 09/26/19 Status: Ordered Pen [place], 31 G x 5 mm BD Ultra Fine III See Instructions, # 120 each, Refills 2, Tot. Refills 2, Maintenance, Use four times a day DM [id number] Office visit needed for further refills, 07/21/18 7:52:12 EST, Compound Start Date: 07/21/18 Status: Ordered Reclast 5 mg/100 mL intravenous solution = 5 mg, IV Infusion, Once, infused over at least 15 minutes, # 1 each, 0 Refills, Soft Stop, 01/07/19 14:36:36 EDT Start Date: 01/07/19 Status: Ordered Test Strips for Prodigy Auto Code Talking Meter to Test BS 6x/day for DM2 250.00 Test Strips for Prodigy Auto Code Talking Meter to Test BS 6x/day for DM2 250.00, See Instructions,# 200 each, Refills 1, Tot. Refills 1, Maintenance, Please use as directed to test blood sugars 6-7times a day for DMII Dx: E11.9 ,E11.319, ... Start Date: 02/23/18 Status: Ordered Vitamin C 500 mg oral tablet 1 tablet = 500 mg, By Mouth, Daily, # 30 tablet, 0 Refills, Maintenance, 04/03/15 13:16:56, Tablet Start Date: 04/03/15 Status: Ordered Vitamin D3 2000 intl units oral tablet 1 tablet = 2,000 International_Units, By Mouth, Daily, 0 Refills, Maintenance, 04/03/15 13:16:24 Start Date: 04/03/15 Status: Ordered Problem List Condition Effective Dates Status Health Status Inform ant buttermaker current use of insulin(Confirmed) Active Exudative macular degeneration(Confirmed) Active GERD (gastroesophageal reflu x disease)(Confirmed) Active History of skin cancer(Confirmed) Active History of total thyroidectomy(Confirmed) Active Hypertension(Confirmed) Active Hypoglycemia associated with type 2 diabetes mellitus(Confirmed) Active Hypothyroidism(Confirmed) Active Nephrolithiasis(Confirmed) Active 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
--- OUTSIDE RECORDS SUMMARY | 2022-12-22 16:59 | XMS_ITS | Continuity of Care Document ---
Author Name Unknown Organization [facility] Address [address] [place] [address]- Care Team Providers Care Plug Grower Name Role Phone Hunter Cortes MD Primary Care Physician [facility]counter [facility] Date(s): 04/01/20 - 05/01/20 [facility] Adult [address] [place] [address]- [facility] Allergies, Adverse Reactions, Alerts Substance Reaction Severity [...] 13-valent vaccine 04/03/15 Given 1Result Comment: [05/03/2018] [facility]-[id number] 2Result Comment: [12/21/2017] [id number] Medications aspirin 81 mg oral tablet 1 tablet = 81 mg, By Mouth, Daily, # 30 tablet, 0 Refills, Maintenance, 04/03/15 13:17:10, Tablet Start Date: 04/03/15 Status: Ordered atorvastatin 10 mg oral tablet 1 tablet = 10 mg, By Mouth, Daily, # 30 tablet, 5 Refills, Maintenance, 04/27/20 15:53:00 EDT, Tablet, [facility], 152.1, cm, 04/27/20 10:07:00 EDT, Height, 75.8, kg, 06/14/19 10:04:00 EST, Dry Weight Start Date: 04/27/20 Status: Ordered Auto Code Talking Prodigy Meter [...] 100 units/mL subcutaneous solution See Instructions, INJECT 60 UNITS SUBCUTANEOUSLY QPM, # 15 mL, 5 Refills, Maintenance, 12/20/19 16:57:00 EDT, [facility], 152.1, cm, 06/14/19 10:04:00 EST, Height, 75.8, kg, 06/14/19 10:04:00 EST, Dry Weight Start Date: 12/20/19 Status: Ordered levothyroxine 112 mcg (0.112 mg) oral capsule 1 capsule = 112 mcg, By Mouth, Daily, # 30 capsule, 5 Refills, Maintenance, 04/27/20 15:53:00 EDT, Capsule, [facility], Replaces 125mcg qday, 152.1, cm, 04/27/20 10:07:00 EDT, Height,75.8, kg, 06/14/19 10:04:00 EST, Dry Weight Start Date: 04/27/20 Status: Ordered Yasmeen Sensors 14 day (dispense 2 monthly) Yasmeen Sensors 14 day (dispense 2 monthly), See Instructions, # 2 each, Refills 5, Tot. Refills 5, Maintenance, IDDM E11.9, 12/01/19 10:39:00 EDT, Compound, 152.1, cm, 06/14/19 10:04:00 EST, Height, 75.8, kg, 06/14/19 10:04:00 EST, Dry Weight Start Date: 12/01/19 Status: Ordered lisinopril 40 mg oral tablet 1 tablet = 40 mg, By Mouth, Daily, # 30 tablet, 2 Refills, Maintenance, 04/01/20 10:45:00 EDT, Tablet, [facility], 152.1, cm, 01/30/20 9:07:00 EDT, Height, 75.8, kg, 06/14/19 10:04:00EST, Dry Weight Start Date: 04/01/20 Status: Ordered metFORMIN 500 mg oral tablet, extended release 1 tablet = 500 mg, By Mouth, Daily, Pt changed to 1 tablet daily approx 04/10/20 due to diarrhea, # 60 tablet, 2 Refills, Maintenance, 02/07/20 12:24:00 EDT, ER Tablet, [facility], d/c500 mg BID metformin RX please, 152.1, cm, 01/30/20 9:0... Start Date: 02/07/20 Status: Ordered Ocuvite Lutein By Mouth, Daily, 0 Refills, Maintenance, 04/03/15 13:16:39 Start Date: 04/03/15 Status: Ordered omeprazole 20 mg oral delayed release tablet 1 tablet = 20 mg, By Mouth, Daily, # 30 tablet, 11 Refills, Maintenance, 09/26/19 14:14:00 EDT, [facility], 152.1, cm, 06/14/19 10:04:00 EST, Height, 75.8, kg, 06/14/19 10:04:00 EST, Dry Weight Start Date: 09/26/19 Status: Ordered Pen [place], 31 G x 5 mm BD Ultra Fine III See Instructions, # 120 each, Refills 2, Tot. Refills 2, Maintenance, Use four times a day DM [id number] Office visit needed for further refills, 07/21/18 [...] Ordered Vitamin D3 2000 intl units oral capsule 1 capsule = 2,000 International_Units, By Mouth, Daily, # 30 capsule, 5 Refills, Maintenance, 03/20/20 14:28:00 EDT, [facility], 152.1, cm, 01/30/20 9:07:00 EDT, Height, 75.8, kg, 06/14/19 10:04:00 EST, Dry Weight Start Date: 03/20/20 Status: Ordered Problem List Condition Effective Dates Status Health Status Inform ant Obesity (BMI 30-39.9)(Confirmed) Active [facility] current use of ins ulin - checks glucose and administers insulin 4 times daily(Confirmed) Active Exudative macular degeneration(Confirmed) Active GERD (gastroesophageal reflu x disease)(Confirmed) Active History of skin cancer(Confirmed) Active History of total thyroidectomy(Confirmed) Active Hypertension(Confirmed) Active Hypoglycemia associated with type 2 diabetes mellitus(Confirmed) Active Hypothyroidism(Confirmed) Active Nephrolithiasis(Confirmed) Active 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
--- OUTSIDE RECORDS SUMMARY | 2022-12-22 16:59 | XMS_ITS | Continuity of Care Document ---
Author Name Unknown Organization [facility] Conor Serjio lt Address [address] [place] [address]- Care Team Providers Care Rock Loader Name Role Phone Ezequiel Jacques MD [id number] - 08/29/22 [facility] Adult [address] [place] [address]- Attending Physician: Ezequiel Jacques MD Allergies, Adverse Reactions, Alerts Substance Reaction [...] 13-valent vaccine 04/03/15 Given 1Result Comment: [05/03/2018] [facility]-[id number] 2Result Comment: [12/21/2017] [id number] Medications Anecream Topically, 3 times a day, for headaches prescribed by psychiatrist per Pt, 0 Refills, Maintenance, 07/23/20 14:42:00 EST, Partial fill upon patient request if the prescription is for a schedule II opioid drug. Start Date: 07/23/20 Status: Ordered AneCream 4% topical cream See Instructions, APPLY TOPICALLY TWICE A DAY, # 15 Gm, 0 Refills, [facility], 0, APPLY TOPICALLY TWICE A DAY, 152.1, cm, 09/13/21 9:55:00 EST, Height Start Date: 09/16/21 Status: Ordered Aspirin Low Dose 81 mg oral delayed release tablet See Instructions, TAKE 1 TABLET BY MOUTH ONCE A DAY^1R1, # 30 tablet, 1 Refills, Maintenance, 07/25/22 16:06:00 EST, [facility], 152.1, cm, 05/08/22 11:14:00 EDT, Height Start Date: 07/25/22 Status: Ordered atorvastatin 10 mg oral tablet 1 tablet, By Mouth, Daily, # 28 tablet, 2 Refills, Maintenance, 03/18/22 21:26:00 EDT, [facility], 152.1, cm, 02/03/22 10:10:00 EDT, Height Start Date: 03/18/22 Status: Ordered Auto Code Talking Prodigy Meter Auto Code Talking Prodigy Meter, See Instructions, # 1 each, Refills 0, Tot. Refills 0, Maintenance, Test BS 4x/day and prn for IDDM E11.9, 12/01/17 14:54:30 EDT, Compound Start Date: 12/01/17 Status: Ordered buPROPion 200 mg/12 hours (SR) oral tablet, extended release 1 tablet, By Mouth, 2 times a day, # 56 tablet, 4 Refills, Maintenance, 05/18/22 15:34:00 [facility], 152.1, cm, 05/08/22 11:14:00 EDT, Height Start Date: 05/18/22 Status: Ordered Diabetic Shoes Diabetic Shoes, See Instructions, # 1 each, Refills 1, Tot. 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, 03/10/17 10:06:57, Compound Start Date: 03/10/17 Status: Ordered FLUoxetine 40 mg oral capsule 1 capsule, By Mouth, Daily, R1., # 248 capsule, 0 Refills, Maintenance, 07/03/22 6:43:00 EST, [facility], 152.1, cm, 05/08/22 11:14:00 EDT, Height Start Date: 07/03/22 Status: Ordered furosemide 40 mg oral tablet 1, tablet, By Mouth, Daily, # 28 tablet, Refills 5, Tot. Refills 5, Maintenance, 08/21/22 16:13:00 EST, Route to Pharmacy Electronically, [facility], 152.1, cm, 05/08/22 11:14:00 EDT, Height Start Date: 08/21/22 Status: Ordered Glucagon Emergency Kit for Low Blood Sugar 1 mg injection = 1 mg, Intramuscular, Once, repeat in 20 minutes if sugars are still < 60, # 1 kit, 11 Refills,Soft Stop, 02/27/17 10:15:11 Start Date: 02/27/17 Status: Ordered Humalog Kwik Pen 100 units/mL subcutaneous injection See Instructions, INJECT SUBCUTANEOUSLY THREE TIMES A DAY WITH MEALS IF BLOOD SUGAR = 120-150:17, 151-200:19, 201-250:21, 251-300:23, 301-350:25, 351-400:27, OVER 400:29 UNITS AND CALL PCP, # 15 mL, 5 Refills, 01/08/22 14:09:00 EDT, [facility] Start Date: 01/08/22 Status: Ordered Lancets for Prodigy Auto Code Talking Meter Lancets for Prodigy Auto Code Talking Meter, See Instructions, # 1 each, Refills 6, Tot. Refills 6,Maintenance, Use as directed for DM II E11.9, E11.319 to test blood sugar 6-7 times daily, 12/04/1709:33:13, Compound Start Date: 12/04/16 Status: Ordered Levemir FlexTouch 100 units/mL subcutaneous solution See Instructions, INJECT 66 UNITS SUBCUTANEOUSLY DAILY IN THE EVENING *can give 3 month supply, # 8each, 5 Refills, 05/28/22 13:24:00 EST, [facility], 152.1, cm, 05/08/22 11:14:00 EDT, Height Start Date: 05/28/22 Status: Ordered levothyroxine 0.112 mg oral tablet 1 tablet, By Mouth, Daily, # 28 tablet, 1 Refills, Maintenance, 05/18/22 15:34:00 EDT, [facility], 152.1, cm, 05/08/22 11:14:00 EDT, Height Start Date: 05/18/22 Status: Ordered Yasmeen Sensors 14 day (dispense 2 monthly) Yasmeen Sensors 14 day (dispense 2 monthly), See Instructions, # 2 each, Refills 5, Tot. Refills 5, Maintenance, IDDM E11.9, 12/01/19 10:39:00 EDT, Compound, 152.1, cm, 06/14/19 10:04:00 EST, Height, 75.8, kg, 06/14/19 10:04:00 EST, Dry Weight Start Date: 12/01/19 Status: Ordered Lidoderm 5% film 1 patch, Topically, Daily, PRN Pain , Moderate, # 7 patch, 0 Refills, Maintenance, 10/05/20 14:11:00 EDT, [facility], Partial fill upon patient request if the prescription is for a schedule II opioid drug., 1 patch Topically Daily,x7 days,... Start Date: 10/05/20 Stop Date: 10/12/20 Status: Ordered lisinopril 40 mg oral tablet 1 tablet, By Mouth, Daily, R1., # 28 tablet, 5 Refills, Maintenance, 08/21/22 13:11:00 EST, [email or web address], 152.1, cm, 05/08/22 11:14:00 EDT, Height Start Date: 08/21/22 Status: Ordered metFORMIN 500 mg oral tablet, extended release 2 tablet = 1,000 mg, By Mouth, Daily, # 60 tablet, 11 Refills, Maintenance, 05/30/22 6:18:00 EST, [email or web address], Partial fill upon patient request if the prescription is for a schedule II opioiddrug., 152.1, cm, 05/08/22 11:14:00 EDT, Height Start Date: 05/30/22 Status: Ordered Ocuvite Lutein By Mouth, Daily, 0 Refills, Maintenance, 04/03/15 13:16:39 Start Date: 04/03/15 Status: Ordered omeprazole 20 mg oral enteric coated capsule 1 capsule, By Mouth, Daily, R1., # 28 capsule, 5 Refills, Maintenance, 07/28/22 12:14:00 EST, [email or web address], 152.1, cm, 05/08/22 11:14:00 EDT, Height Start Date: 07/28/22 Status: Ordered one walker one walker, See Instructions, # 1 each, Refills 0, Tot. Refills 0, Maintenance, Dispense one walkerwith wheels Diagnosis: back pain Please deliver, 10/10/20 10:24:00 EDT, Dispense one walker with wheels; Diagnosis: back pain; Please deliver, Supply... Start Date: 10/10/20 Status: Ordered oxyCODONE 5 mg oral tablet TAKE 1 TABLET BY MOUTH TWICE A DAY NEEDED FOR PAIN Start Date: 09/24/21 Status: Ordered Pen [place], 31 G x 5 mm BD Ultra Fine III See Instructions, # 120 each, Refills 2, Tot. Refills 2, Maintenance, Use four times a day DM [id number] Office visit needed for further refills, 07/21/18 [...] ,E11.319, ... Start Date: 02/23/18 Status: Ordered UNIFINE PENTIPS PLU 31G X 5 MM MISC UNIFINE PENTIPS PLU 31G X 5 MM MISC, See Instructions, # 100 each, 1 Refills, Maintenance, DIRECTED FOUR TIMES DAILY, 07/04/22 13:41:00 EST, 152.1, cm, 05/08/22 11:14:00 EDT, Height Start Date: 07/04/22 Status: Ordered UNIFINE PENTIPS PLU 31G X 5 MM MISC UNIFINE PENTIPS PLU 31G X 5 MM MISC, See Instructions, # 100 each, 5 Refills, Maintenance, DIRECTED FOUR TIMES DAILY ^BULK, 08/21/22 13:11:00 EST, 152.1, cm, 05/08/22 11:14:00 EDT, Height Start Date: 08/21/22 Status: Ordered UNIFINE PNTP MIS [id number] UNIFINE PNTP MIS [id number], See Instructions, # 100 each, 1 Refills, Maintenance, DIRECTED FOUR TIMES DAILY, 05/10/22 10:46:00 EDT, 152.1, cm, 05/08/22 11:14:00 EDT, Height Start Date: 05/10/22 Status: Ordered UNIFINE PNTP MIS [id number] UNIFINE PNTP MIS [id number], See Instructions, # 100 each, 2 Refills, DIRECTED FOUR TIMES DAILY, 152.1, cm, 02/03/22 10:10:00 EDT, Height Start Date: 02/18/22 Status: Ordered VITAMIN D3 2,000 UNIT SOFTGEL VITAMIN D3 2,000 UNIT SOFTGEL, 1, capsule, By Mouth, Daily, # 28 capsule, 5 Refills, 152.1, cm, 09/25/21 11:31:00 EST, Height Start Date: 11/01/21 Status: Ordered Vitamin D3 2000 intl units oral capsule 1 capsule, By Mouth, Daily, R1., # 28 capsule, 2 Refills, Maintenance, 07/02/22 14:28:00 EST, [email or web address], 152.1, cm, 05/08/22 11:14:00 EDT, Height Start Date: 07/02/22 Status: Ordered Problem List Condition Confirmation Course Effective Dates Status H ealt Status Informant Obesity (BMI 30-39.9) Confirmed Active Complicated bereavement Confirmed Active 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 glucose and administers insulin 4 times daily Confirmed Active Exudative macular degeneration Confirmed Active GERD (gastroesophageal reflux disease) Confirmed Active History of skin cancer Confirmed Active History of total thyroidectomy Confirmed Active Hypertension Confirmed Active Hypoglycemia associated with type 2 diabetes mellitus Confirmed Active Hypothyroidism Confirmed Active Nephrolithiasis Confirmed Active 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 Confirmed Active Depression, major Confirmed Active Obese class I Confirmed Active Obstructive sleep apnea Confirmed Active Osteoporosis Confirmed Active 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 Vital Signs Most recent to oldest [Reference Range]: 1 2 Height 152.1 cm (08/22/22 10:03 AM) 152.1 cm (08/22/22 9:59 AM) Weight 72.9 kg (08/22/22 9:59 AM) Oxygen Saturation [94-100 %] 96 % (08/22/22 9:59 AM) Pulse Rate [55-90 bpm] 96 bpm *H* (08/22/22 9:59 AM) Body Mass Index [18.5-24.99 kg/m2] 31.51 kg/m2 *>HHI* (08/22/22 9:59 AM) Blood Pressure [90-138/55-84 mm Hg] 137/ 79mm Hg (08/22/22 10:03 AM) 168/79mm Hg *H* (08/22/22 9:59 AM) Mode of Delivery (Oxygen) Room air (08/22/22 9:59 AM) Blood pressure sites Arm, left (08/22/22 10:03 AM) Arm, left (08/22/22 9:59 AM) Weight Obtained Via Standing scale (08/22/22 9:59 AM) Social History Social History Type Response Smoking Status Former smoker entered on: 09/14/17 Sex Note * Cece Chand: PERFORM, SIGN, VERIFY Event Display: Patient Education/Instruction Authored Date: [id number] [facility] *BMP So Conor Amador Clinical Summary Name STAS VILLANUEVA Age 82 Years 1940 PCP Georgie FREEMAN, Ezequiel Chino PCP Visit Date 08/22/2022 09:48:00 Additional Instructions: Scheduled Appointments?? Future Appointments ?No Future Appointments Scheduled Follow-Up Instructions ?? Diagnosis Medications: Please continue your medications until treatment is completed or stopped by your provider. Discuss any questions related to medications with your provider. Medications to Continue with No Changes These medications were not printed or sent to your pharmacy Aspirin (Aspirin Low Dose 81 mg oral delayed release tablet) TAKE 1 TABLET BY MOUTH ONCE A DAY^1R1.Refills: 1. Next Dose: Atorvastatin (atorvastatin 10 mg oral tablet) 1 tab(s) Oral Daily. Refills: 2. Next Dose: BuPROpion (buPROPion 200 mg/12 hours (SR) oral tablet, extended release) 1 tab(s) Oral twice a day.Refills: 4. Next Dose: Cholecalciferol (Vitamin D3 2000 intl units oral capsule) 1 capsule Oral Daily. R1.. Refills: 2. Next Dose: Durable Medical Equipment (Yasmeen Sensors 14 day (dispense 2 monthly)) IDDM E11.9. Refills: 5. Next Dose: Durable Medical Equipment (one walker) Dispense one walker with wheels Diagnosis: back pain Please deliver. Refills: 0. Next Dose: Durable Medical Equipment (Pen [place], 31 G x 5 mm BD Ultra Fine III) Use four times a day DM Type2 E11.9 Office visit needed for further refills. Refills: 2. Next Dose: Fluoxetine (FLUoxetine 40 mg oral capsule) 1 capsule Oral Daily. R1.. Refills: 0. Next Dose: Furosemide (furosemide 40 mg oral tablet) 1 tab(s) Oral Daily. Refills: 5. Next Dose: Glucagon (Glucagon Emergency Kit for Low Blood Sugar 1 mg injection) 1 Milligram Intramuscular once. repeat in 20 minutes if sugars are still < 60. Refills: 11. Next Dose: Insulin Detemir (Levemir FlexTouch 100 units/mL subcutaneous solution) INJECT 66 UNITS SUBCUTANEOUSLY DAILY IN THE EVENING *can give 3 month supply. Refills: 5. Next Dose: Insulin Lispro (Humalog Kwik Pen 100 units/mL subcutaneous injection) INJECT SUBCUTANEOUSLY THREE TIMES A DAY WITH MEALS IF BLOOD SUGAR = 120-150:17, 151- 200:19, 201-250:21, 251-300:23, 301-350:25, 351-400:27, OVER 400:29 UNITS AND CALL PCP. Refills: 5. Next Dose: Levothyroxine (levothyroxine 0.112 mg oral tablet) 1 tab(s) Oral Daily. Refills: 1. Next Dose: Lidocaine Topical (AneCream 4% topical cream) APPLY TOPICALLY TWICE A DAY. Refills: 0. Next Dose: Lidocaine Topical (Anecream) Topically 3 times a day. for headaches prescribed by psychiatrist per Pt. Next Dose: Lidocaine Topical (Lidoderm 5% film) 1 patch(es) Topically Daily as needed Pain , Moderate for 7 Days. Refills: 0. Next Dose: Lisinopril (lisinopril 40 mg oral tablet) 1 tab(s) Oral Daily. R1.. Refills: 5. Next Dose: Metformin (metFORMIN 500 mg oral tablet, extended release) 2 tab(s) Oral Daily. Refills: 11. Next Dose: Miscellaneous Rx (Auto Code Talking Prodigy Meter) Test BS 4x/day and prn for IDDM E11.9. Refills: 0. Next Dose: Miscellaneous Rx (Diabetic Shoes) For use for DX- DM Type II E11.9. Refills: 1. Next Dose: Miscellaneous Rx (Lancets for Prodigy Auto Code Talking Meter) Use as directed for DM II E11.9, E11.319 to test blood sugar 6-7 times daily. Refills: 6. Next Dose: Miscellaneous Rx (Test Strips for Prodigy Auto Code Talking Meter to Test BS 6x/day for DM2 250.00)Please use as directed to test blood sugars 6-7 times a day for DMII Dx: E11.9 ,E11.319. Refills: 1. Next Dose: Miscellaneous Rx (UNIFINE PENTIPS PLU 31G X 5 MM MISC) DIRECTED FOUR TIMES DAILY ^BULK. Refills:5. Next Dose: Miscellaneous Rx (UNIFINE PENTIPS PLU 31G X 5 MM MISC) DIRECTED FOUR TIMES DAILY. Refills: 1. Next Dose: Miscellaneous Rx (UNIFINE PNTP MIS [id number]) DIRECTED FOUR TIMES DAILY. Refills: 2. Next Dose: Miscellaneous Rx (UNIFINE PNTP MIS [id number]) DIRECTED FOUR TIMES DAILY. Refills: 1. Next Dose: Miscellaneous Rx (VITAMIN D3 2,000 UNIT SOFTGEL) 1 capsule Oral Daily. Refills: 5. Next Dose: Multivitamin With Minerals (Ocuvite Lutein) Oral Daily. Next Dose: Omeprazole (omeprazole 20 mg oral enteric coated capsule) 1 capsule Oral Daily. R1.. Refills: 5. Next Dose: Oxycodone (oxyCODONE 5 mg oral tablet) TAKE 1 TABLET BY MOUTH TWICE A DAY NEEDED FOR PAIN. Next Dose: Zoledronic Acid (Reclast 5 mg/100 mL intravenous solution) 5 Milligram Intravenous Infusion once. infused over at least 15 minutes. Refills: 0. Next Dose: Allergy Info:?? penicillins; morphine Medications Given This Visit Future Orders ?Direct LDL? Order Date:08/22/22?- Complete on or after?08/22/22 ?TSH with T4 Reflex (Adults Only)? Order Date:08/22/22?- Complete on or after?08/22/22 ?Comprehensive Metabolic Panel? Order Date:08/22/22?- Complete on or after?08/22/22 ?CBC w/ Differential? Order Date:08/22/22?- Complete on or after?08/22/22 ?Microalbumin Urine? Order Date:08/22/22?- Complete on or after?08/22/22 Vital Signs Height 152.1 cm Weight 72.9 kg BMI 31.51 kg/m2 Blood Pressure 137 mm Hg/79 mm Hg Temperature Pulse Rate 96 bpm Respiratory Rate 02 Sat Mode of Delivery 96 %/Room air You can now view a summary of your hospital visit from the comfort of your home through a free online portal called [employer]. [employer] is a website that allows you to securely view your medical information including discharge summary, medications and follow-up visits. ??You can alsosend a secure electronic message to your doctor???s office to request appointments, renew medications or just ask a question. You can enroll at [email or web address] or register during your next office visit. Disclaimer:?? The information provided is of a general nature and is intended to be used in conjunction with the recommendations and advice of your health care practitioner. ??Every effort has been made to ensure that the information provided is accurate and complete at the time it is provided to you however, as your needs change, or, as new ??information becomes available, different or additional instructions may be required. If you have questions, please consult with your primary care provider or pharmacist, as appropriate. ??This information is not intended to serve as substitution for assessment and evaluation by a qualified health care provider. If you do not have a primary care provider, you may find a [facility] provider by calling [facility] [employer] Link at [phone]. For information about the plan of care including goals and instructions for your diagnosis, please see the patient education orders section of this document. Patient Education Materials?? The content of this educational material or handout may have been modified, supplemented, or adapted from its original content and format to support your individualized medical care. Patient Care team information Care Team Personnel Name: Georgie FREEMAN, Ezequiel Chino Position: [facility] Primary Care Physician Member Role: PCP Address: Address: [address] [place] [address]- Name: Madhuri Leonard RN Position: [facility] RN Member Role: Primary Care Nurse Care Team Related Persons Name: TAYLOR CUEVAS Address: [place] [address] Name: COLEEN SANCHEZ
--- OUTSIDE RECORDS SUMMARY | 2022-12-22 16:59 | XMS_ITS | Continuity of Care Document ---
Author Name Unknown Organization [facility] Serjio lt Address [address] [place] [address]- Care Team Providers Care Corporate Director Of Human Resources Name Role Phone Georgie FREEMAN, Ezequiel Chino Primary Care Physician [place] [facility] - 06/27/22 [facility] Adult [address] [place] [address]- Allergies, Adverse Reactions, Alerts Substance Reaction Severity [...] 13-valent vaccine 04/03/15 Given 1Result Comment: [05/03/2018] [facility]-[id number] 2Result Comment: [12/21/2017] [id number] Medications Anecream Topically, 3 times a day, [...] Dose 81 mg oral delayed release tablet 1 tablet, By Mouth, Daily, # 30 tablet, 1 Refills, Maintenance, 05/18/22 15:34:00 EDT, [facility], 152.1, cm, 05/08/22 11:14:00 EDT, Height Start Date: 05/18/22 Status: Ordered atorvastatin 10 mg oral tablet 1 tablet, By Mouth, Daily, # 28 tablet, 2 Refills, Maintenance, 03/18/22 21:26:00 EDT, [facility], 152.1, cm, 02/03/22 10:10:00 EDT, Height [...] tablet, 4 Refills, Maintenance, 05/18/22 15:34:00 EDT, [facility], 152.1, cm, 05/08/22 11:14:00 EDT, Height Start Date: 05/18/22 Status: Ordered D3 50 mcg (2000 intl units) oral capsule 1 capsule, By Mouth, Daily, # 28 capsule, 2 Refills, Maintenance, 03/20/22 6:57:00 EDT, [facility], 152.1, cm, 02/03/22 10:10:00 EDT, Height Start Date: 03/20/22 Status: Ordered Diabetic Shoes Diabetic Shoes, See Instructions, # 1 each, Refills 1, Tot. 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, 03/10/17 10:06:57, Compound Start Date: 03/10/17 Status: Ordered FLUoxetine 40 mg oral capsule 1 capsule, By Mouth, Daily, # 28 capsule, 5 Refills, [facility], 152.1, cm, 09/25/21 11:31:00 EST, Height Start Date: 11/01/21 Status: Ordered furosemide 40 mg oral tablet 1, tablet, By Mouth, Daily, # 28 tablet, Refills 5, Maintenance, 03/18/22 12:07:00 EDT, Route to Pharmacy Electronically, [facility], 152.1, cm, 02/03/22 10:10:00 EDT, Height Start Date: 03/18/22 Status: Ordered Glucagon Emergency Kit for Low [...] 15 mL, 5 Refills, 01/08/22 14:09:00 EDT, [facility]... Start Date: 01/08/22 Status: Ordered Lancets [...] # 8each, 5 Refills, 05/28/22 13:24:00 EST, [facility], cm, 05/08/22 11:14:00 EDT, Height Start Date: 05/28/22 Status: Ordered levothyroxine 0.112 mg oral tablet 1 tablet, By Mouth, Daily, # 28 tablet, 1 Refills, Maintenance, 05/18/22 15:34:00 EDT, [facility], 152.1, cm, 05/08/22 11:14:00 EDT, Height [...] tablet, By Mouth, Daily, # 28 tablet, 4 Refills, Maintenance, 04/11/22 11:27:00 EDT, [facility], 152.1, cm, 02/03/22 10:10:00 EDT, Height Start Date: 04/11/22 Status: Ordered metFORMIN 500 mg oral tablet, extended release 2 tablet = 1,000 mg, By Mouth, Daily, # 60 tablet, 11 Refills, Maintenance, 05/30/22 6:18:00 EST, [facility], Partial fill upon patient request if the prescription is for a schedule II opioiddrug., 152.1, cm, 05/08/22 11:14:00 EDT, Height Start Date: 05/30/22 Status: Ordered Ocuvite Lutein By Mouth, Daily, 0 Refills, Maintenance, 04/03/15 13:16:39 Start Date: 04/03/15 Status: Ordered omeprazole 20 mg oral enteric coated capsule 1 capsule, By Mouth, Daily, # 28 capsule, 0 Refills, Maintenance, 05/18/22 15:34:00 EDT, [facility], 152.1, cm, 05/08/22 11:14:00 EDT, Height Start Date: 05/18/22 Status: Ordered one walker one walker, See [...] PAIN Start Date: 09/24/21 Status: Ordered Pen [place], 31 G x 5 mm BD Ultra Fine III See Instructions, # 120 each, Refills 2, Tot. Refills 2, Maintenance, Use four times a day DM [id number] Office visit needed for further refills, 07/21/18 [...] ... Start Date: 02/23/18 Status: Ordered UNIFINE PNTP MIS [id number] UNIFINE PNTP MIS [id number], See Instructions, # 100 each, 1 Refills, Maintenance, DIRECTED FOUR TIMES DAILY, 05/10/22 10:46:00 EDT, 152.1, cm, 05/08/22 11:14:00 EDT, Height Start Date: 05/10/22 Status: Ordered UNIFINE PNTP MIS [id number] UNIFINE PNTP MIS [id number], See Instructions, # 100 each, 2 Refills, DIRECTED FOUR TIMES DAILY, 152.1, cm, 02/03/22 10:10:00 EDT, Height Start Date: 02/18/22 Status: Ordered VITAMIN D3 2,000 UNIT SOFTGEL VITAMIN D3 2,000 UNIT SOFTGEL, 1, capsule, By Mouth, Daily, # 28 capsule, 5 Refills, 152.1, cm, 09/25/21 11:31:00 EST, Height Start Date: 11/01/21 Status: Ordered Problem List Condition Confirmation Course Effective Dates Status H ealth Status Informant Obesity (BMI 30-39.9) Confirmed Active Complicated bereavement Confirmed Active 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
--- OUTSIDE RECORDS SUMMARY | 2022-12-22 16:59 | XMS_ITS | Continuity of Care Document ---
Author Name Unknown Organization [facility] Serjio lt Address [address] [place] [address]- Care Team Providers Care Street Light Servicer Name Role Phone Bartolo WILSON, Trinh Tenorio Primary Care Physician Encounter [facility] [place] Date(s): 11/25/21 - 12/25/21 [facility] Adult [address] [place] [address]- Allergies, Adverse Reactions, Alerts Substance Reaction Severity [...] 13-valent vaccine 04/03/15 Given 1Result Comment: [05/03/2018] [facility]-[id number] 2Result Comment: [12/21/2017] [id number] Medications Anecream Topically, 3 times a day, [...] EST, Height Start Date: 09/16/21 Status: Ordered aspirin 81 mg oral tablet 1 tablet = 81 mg, By Mouth, Daily, # 30 tablet, 0 Refills, Maintenance, 04/03/15 13:17:10, Tablet Start Date: 04/03/15 Status: Ordered atorvastatin 10 mg oral tablet See Instructions, TAKE (1) TABLET BY MOUTH DAILY., # 28 tablet, 5 Refills, 11/04/21 16:58:00 EDT, [facility], 152.1, cm, 09/25/21 11:31:00 EST, Height Start Date: 11/04/21 Status: Ordered Auto Code Talking Prodigy Meter Auto Code Talking Prodigy Meter, See Instructions, # 1 each, Refills 0, Tot. Refills 0, Maintenance, Test BS 4x/day and prn for IDDM E11.9, 12/01/17 14:54:30 EDT, Compound Start Date: 12/01/17 Status: Ordered buPROPion 200 mg/12 hours (SR) oral tablet, extended release See Instructions, TAKE 1 TABLET BY MOUTH TWICE DAILY PLEASE SCHEDULE PHYSICAL WITH TRINH ESQUIVEL NP, #56 tablet, 5 Refills, 11/01/21 10:43:00 EDT, [facility], 152.1, cm, 09/25/21 11:31:00 EST, Height Start Date: 11/01/21 Status: Ordered Diabetic Shoes Diabetic Shoes, See Instructions, # 1 each, Refills 1, Tot. 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, 03/10/17 10:06:57, Compound Start Date: 03/10/17 Status: Ordered FLUoxetine 40 mg oral capsule 1 capsule, By Mouth, Daily, # 28 capsule, 5 Refills, [facility], 152.1, cm, 09/25/21 11:31:00 EST, Height Start Date: 11/01/21 Status: Ordered furosemide 40 mg oral tablet 1, tablet, By Mouth, Daily, # 28 tablet, Refills 5, Route to Pharmacy Electronically, [facility], 152.1, cm, 09/25/21 11:31:00 EST, Height Start Date: 11/01/21 Status: Ordered Glucagon Emergency Kit for Low [...] CALL PCP, # 15 mL, 5 Refills, [facility], 152.1, cm, 03/0... Start Date: 10/02/21 Status: Ordered Lancets for Prodigy Auto Code [...] 60 UNITS SUBCUTANEOUSLY QPM, # 15 mL, 2 Refills, Maintenance, 05/21/21 11:02:00 EDT, [facility], 152.1, cm, 08/28/20 9:20:00 EST, Height, 75.8, kg, 06/14/19 10:04:00 EST, Dry Weight Start Date: 05/21/21 Status: Ordered Levemir FlexTouch 100 units/mL subcutaneous solution See Instructions, INJECT 60 UNITS SUBCUTANEOUSLY DAILY IN THE EVENING, # 15 mL, 11 Refills, 11/04/21 17:00:00 EDT, [facility], 152.1, cm, 09/25/21 11:31:00 EST, Height Start Date: 11/04/21 Status: Ordered levothyroxine 0.112 mg oral tablet 1 tablet, By Mouth, Daily, # 28 tablet, 5 Refills, Maintenance, 09/13/21 14:22:00 EST, [facility], 152.1, cm, 09/13/21 9:55:00 EST, Height Start Date: 09/13/21 Status: Ordered Yasmeen Sensors 14 day (dispense 2 monthly) Yasmeen Sensors 14 day (dispense 2 monthly), See Instructions, # 2 each, Refills 5, Tot. Refills 5, Maintenance, IDDM E11.9, 12/01/19 10:39:00 EDT, [facility], 152.1, cm, 06/14/19 10:04:00 EST, Height, 75.8, [...] oral tablet 1 tablet, By Mouth, Daily, duplicate from 11/01/21, # 28 tablet, 5 Refills, 11/04/21 16:58:00 EDT, [facility], 152.1, cm, 09/25/21 11:31:00 EST, Height Start Date: 11/04/21 Status: Ordered MetFORMIN (Eqv-Glucophage XR) 500 mg oral tablet, extended release 1 tablet, By Mouth, Daily, # 28 tablet, 5 Refills, Maintenance, 09/13/21 14:23:00 EST, [facility], 152.1, cm, 09/13/21 9:55:00 EST, Height Start Date: 09/13/21 Status: Ordered Ocuvite Lutein By Mouth, Daily, 0 Refills, Maintenance, 04/03/15 13:16:39 Start Date: 04/03/15 Status: Ordered omeprazole 20 mg oral enteric coated capsule See Instructions, TAKE (1) CAPSULE BY MOUTH DAILY, # 28 capsule, 2 Refills, 10/04/21 13:58:00 EDT, [facility], 152.1, cm, 09/25/21 11:31:00 EST, Height Start Date: 10/04/21 Status: Ordered one walker one walker, See [...] PAIN Start Date: 09/24/21 Status: Ordered Pen [place], 31 G x 5 mm BD Ultra Fine III See Instructions, # 120 each, Refills 2, Tot. Refills 2, Maintenance, Use four times a day DM [id number] Office visit needed for further refills, 07/21/18 [...] a day for DMII Dx: E11.9 ,E11.319, 02/23/... Start Date: 02/23/18 Status: Ordered VITAMIN D3 2,000 UNIT SOFTGEL VITAMIN D3 2,000 UNIT SOFTGEL, 1, capsule, By Mouth, Daily, # 28 capsule, 5 Refills, 152.1, cm, 09/25/21 11:31:00 EST, Height Start Date: 11/01/21 Status: Ordered Vitamin D3 2000 intl units oral capsule See Instructions, TAKE (1) CAPSULE BY MOUTH DAILY, # 28 capsule, 5 Refills, [facility], 152.1, cm, 08/28/20 9:20:00 EST, Height Start Date: 08/16/21 Status: Ordered Problem List Condition Effective Dates Status Health Status Inform ant Obesity (BMI 30-39.9)(Confirmed) Active Complicated bereavement(Confirmed) Active 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 and administers insulin 4 times daily(Confirmed) Active Exudative macular degeneration(Confirmed) Active GERD (gastroesophageal reflu x disease)(Confirmed) Active History of skin cancer(Confirmed) Active History of total thyroidectomy(Confirmed) Active Hypertension(Confirmed) Active Hypoglycemia associated with type 2 diabetes mellitus(Confirmed) Active Hypothyroidism(Confirmed) Active Nephrolithiasis(Confirmed) Active 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
--- OUTSIDE RECORDS SUMMARY | 2022-12-22 16:59 | XMS_ITS | Continuity of Care Document ---
Author Name Unknown Organization [facility] Serjio lt Address [address] [place] [address]- Care Team Providers Care Tuckpointer Name Role Phone Hunter Cortes MD Primary Care Physician Encounter [facility] [place] Date(s): 10/09/20 - 11/08/20 [facility] Adult [address] [place] [address]- Attending Physician: AdmtrCatracho Admitting Physician: Admtr, Ar8 Referring Physician: Admtr, Ar8 Allergies, Adverse Reactions, Alerts Substance Reaction Severity [...] 13-valent vaccine 04/03/15 Given 1Result Comment: [05/03/2018] [facility]-[id number] 2Result Comment: [12/21/2017] [id number] Medications Anecream Topically, 3 times a day, for headaches prescribed by psychiatrist per Pt, 0 Refills, Maintenance, 07/23/20 14:42:00 EST, Partial fill upon patient request if the prescription is for a schedule II opioid drug. Start Date: 07/23/20 Status: Ordered aspirin 81 mg oral tablet 1 tablet = 81 mg, By Mouth, Daily, # 30 tablet, 0 Refills, Maintenance, 04/03/15 13:17:10, Tablet Start Date: 04/03/15 Status: Ordered atorvastatin 10 mg oral tablet 1 tablet = 10 mg, By Mouth, Daily, # 30 tablet, 5 Refills, Maintenance, 10/13/20 22:20:00 EDT, Tablet, [facility], 152.1, cm, 08/28/20 9:20:00 EST, Height, 75.8, kg, 06/14/19 10:04:00EST, Dry Weight Start Date: 10/13/20 Status: Ordered Auto Code Talking Prodigy Meter Auto Code Talking Prodigy Meter, See Instructions, # 1 each, Refills 0, Tot. Refills 0, Maintenance, Test BS 4x/day and prn for IDDM E11.9, 12/01/17 14:54:30 EDT, Compound Start Date: 12/01/17 Status: Ordered buPROPion 200 mg/12 hours (SR) oral tablet, extended release 1 tablet = 200 mg, By Mouth, 2 times a day, # 60 tablet, 11 Refills, Maintenance, 05/07/20 16:06:00EDT, ER Tablet, [facility], 152.1, cm, 04/27/20 10:07:00 EDT, Height, 75.8, kg, 06/14/19 10:04:00 EST, Dry Weight Start Date: 05/07/20 Status: Ordered Diabetic Shoes Diabetic Shoes, See Instructions, # 1 each, Refills 1, Tot. 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, 03/10/17 10:06:57, Compound Start Date: 03/10/17 Status: Ordered FLUoxetine 40 mg oral capsule 1 capsule = 40 mg, By Mouth, Daily, # 90 capsule, 3 Refills, Soft Stop, 10/23/20 15:52:00 EDT, [facility], 152.1, cm, 08/28/20 9:20:00 EST, Height, 75.8, kg, 06/14/19 10:04:00 EST, Dry Weight Start Date: 10/23/20 Status: Ordered furosemide 40 mg oral tablet 1, tablet, By Mouth, Daily, # 28 tablet, Refills 11, Tot. Refills 0, Maintenance, 09/14/20 16:08:00EST, Route to Pharmacy Electronically, [facility], 152.1, cm, 08/28/20 9:20:00 EST, Height, 75.8, kg, 06/14/19 10:04:00 EST, Dry Weight Start Date: 09/14/20 Status: Ordered Glucagon Emergency Kit for Low [...] 21units, # 5 each, 5 Refills, Maintenance, 07/05/20 13:43:00 EST, [facility], 251-300: 23 units, 301-350: 25 units, 351-400: 27 units, > 400... Start Date: 07/05/20 Status: Ordered Lancets for Prodigy Auto Code [...] QPM, # 15 mL, 5 Refills, Maintenance, 08/01/20 13:15:00 EST, [facility], 152.1, cm, 05/28/20 7:41:00 EST, Height, 75.8, kg, 06/14/19 10:04:00 EST, Dry Weight Start Date: 08/01/20 Status: Ordered levothyroxine 112 mcg (0.112 mg) oral capsule 1 capsule = 112 mcg, By Mouth, Daily, # 30 capsule, 2 Refills, Maintenance, 10/13/20 22:20:00 EDT, Capsule, [facility], Replaces 125mcg qday, 152.1, cm, 08/28/20 9:20:00 EST, Height, 75.8, kg, 06/14/19 10:04:00 EST, Dry Weight Start Date: 10/13/20 Status: Ordered Yasmeen Sensors 14 day (dispense [...] Daily, # 30 tablet, 5 Refills, Maintenance, 06/22/20 11:53:00 EST, Tablet, [facility], 152.1, cm, 05/28/20 7:41:00 EST, Height, 75.8, kg, 06/14/19 10:04:00EST, Dry Weight Start Date: 06/22/20 Status: Ordered metFORMIN 500 mg oral tablet, extended release 1 tablet = 500 mg, By Mouth, Daily, # 30 tablet, 11 Refills, Maintenance, 10/15/20 17:04:00 EDT, ERTablet, [facility], 152.1, cm, 08/28/20 9:20:00 EST, Height, 75.8, kg, 06/14/19 10:04:00 EST, Dry Weight Start Date: 10/15/20 Status: Ordered Ocuvite Lutein By Mouth, Daily, 0 Refills, Maintenance, 04/03/15 13:16:39 Start Date: 04/03/15 Status: Ordered omeprazole 20 mg oral delayed release tablet 1 tablet = 20 mg, By Mouth, Daily, # 30 tablet, 5 Refills, Maintenance, 08/25/20 9:22:00 EST, [facility], 152.1, cm, 05/28/20 7:41:00 EST, Height, 75.8, kg, 06/14/19 10:04:00 EST, DryWeight Start Date: 08/25/20 Status: Ordered one walker one walker, See Instructions, # 1 each, Refills 0, Tot. Refills 0, Maintenance, Dispense one walkerwith wheels Diagnosis: back pain Please deliver, 10/10/20 10:24:00 EDT, Dispense one walker with wheels; Diagnosis: back pain; Please deliver, Supply... Start Date: 10/10/20 Status: Ordered Pen [place], 31 G x 5 mm BD Ultra Fine III See Instructions, # 120 each, Refills 2, Tot. Refills 2, Maintenance, Use four times a day DM [id number] Office visit needed for further refills, 07/21/18 [...] ... 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 - checks glucose and administers insulin 4 times daily(Confirmed) Active Exudative macular degeneration(Confirmed) Active GERD (gastroesophageal reflu x disease)(Confirmed) Active History of skin cancer(Confirmed) Active History of total thyroidectomy(Confirmed) Active Hypertension(Confirmed) Active Hypoglycemia associated with type 2 diabetes mellitus(Confirmed) Active Hypothyroidism(Confirmed) Active Nephrolithiasis(Confirmed) Active 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
--- OUTSIDE RECORDS SUMMARY | 2022-12-22 16:59 | XMS_ITS | Continuity of Care Document ---
Author Name Unknown Organization [facility] Serjio lt Address [address] [place] [address]- Care Team Providers Care Wholesale Buyer Name Role Phone Bartolo WILSON, Trinh Tenorio Primary Care Physician [place] [facility] [place]25[place] - 11/27/21 [facility] Adult [address] [place] [address]- Attending Physician: Georgie FREEMAN, Ezequiel Chino Allergies, Adverse Reactions, Alerts Substance Reaction Severity [...] 13-valent vaccine 04/03/15 Given 1Result Comment: [05/03/2018] [facility]-[id number] 2Result Comment: [12/21/2017] [id number] Medications Anecream Topically, 3 times a day, [...] 28 tablet, 5 Refills, 11/04/21 16:58:00 EDT, [facility], 152.1, cm, 09/25/21 11:31:00 EST, Height Start [...] 5 Refills, 11/01/21 10:43:00 EDT, [facility], 152.1, cm, 09/25/21 11:31:00 EST, Height Start Date: 11/01/21 Status: Ordered Diabetic Shoes Diabetic Shoes, See Instructions, # 1 each, Refills 1, Tot. 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, 03/10/17 10:06:57, Compound Start Date: 03/10/17 Status: Ordered FLUoxetine 40 mg oral capsule 1 capsule, By Mouth, Daily, # 28 capsule, 5 Refills, [facility], 152.1, cm, 09/25/21 11:31:00 EST, Height Start Date: 11/01/21 Status: Ordered furosemide 40 mg oral tablet 1, tablet, By Mouth, Daily, # 28 tablet, Refills 5, Route to Pharmacy Electronically, [facility], 152.1, cm, 09/25/21 11:31:00 EST, Height Start [...] 15 mL, 11 Refills, 11/04/21 17:00:00 EDT, [facility], [facility], [facility], 09/25/21 11:31:00 EST, Height [...] 5, Maintenance, IDDM E11.9, 12/01/19 10:39:00 EDT, [facility], 152.1, cm, 06/14/19 10:04:00 EST, Height, 75.8, [...] 28 tablet, 5 Refills, 11/04/21 16:58:00 EDT, [facility], 152.1, cm, 09/25/21 11:31:00 EST, Height Start [...] PAIN Start Date: 09/24/21 Status: Ordered Pen [place], 31 G x 5 mm BD Ultra Fine III See Instructions, # 120 each, Refills 2, Tot. Refills 2, Maintenance, Use four times a day DM [id number] Office visit needed for further refills, 07/21/18 [...] ,E11.319, ... 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
--- OUTSIDE RECORDS SUMMARY | 2022-12-22 16:59 | XMS_ITS | Continuity of Care Document ---
Author Name Unknown Organization [facility] Serjio lt Address [address] [place] [address]- Care Team Providers Care Caption Writer Name Role Phone Georgie FREEMAN, Ezequiel Chino Primary Care Physician [phone] Encounter [facility] [place] Date(s): 07/03/22 - 08/02/22 [facility] Adult [address] [place] [address]- Allergies, Adverse Reactions, Alerts Substance Reaction Severity [...] 13-valent vaccine 04/03/15 Given 1Result Comment: [05/03/2018] [facility]-[id number] 2Result Comment: [12/21/2017] [id number] Medications Anecream Topically, 3 times a day, [...] tablet, 1 Refills, Maintenance, 07/25/22 16:06:00 EST, [facility], 152.1, cm, 05/08/22 11:14:00 EDT, Height Start Date: 07/25/22 Status: Ordered atorvastatin 10 mg oral tablet 1 tablet, By Mouth, Daily, # 28 tablet, 2 Refills, Maintenance, 03/18/22 21:26:00 EDT, [facility], 152.1, cm, 02/03/22 10:10:00 EDT, Height [...] tablet, 4 Refills, Maintenance, 05/18/22 15:34:00 EDT, [facility], 152.1, cm, 05/08/22 11:14:00 EDT, Height Start Date: 05/18/22 Status: Ordered Diabetic Shoes Diabetic Shoes, See Instructions, # 1 each, Refills 1, Tot. 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, 03/10/17 10:06:57, Compound Start Date: 03/10/17 Status: Ordered FLUoxetine 40 mg oral capsule 1 capsule, By Mouth, Daily, R1., # 248 capsule, 0 Refills, Maintenance, 07/03/22 6:43:00 EST, [facility], 152.1, cm, 05/08/22 11:14:00 EDT, Height Start Date: 07/03/22 Status: Ordered furosemide 40 mg oral tablet 1, tablet, By Mouth, Daily, # 28 tablet, Refills 5, Maintenance, 03/18/22 12:07:00 EDT, Route to Pharmacy Electronically, [facility], 152.1, cm, 02/03/22 10:10:00 EDT, Height [...] 15 mL, 5 Refills, 01/08/22 14:09:00 EDT, [facility]... Start Date: 01/08/22 Status: Ordered Lancets [...] # 8each, 5 Refills, 05/28/22 13:24:00 EST, [facility], 152.1, cm, 05/08/22 11:14:00 EDT, Height Start Date: 05/28/22 Status: Ordered levothyroxine 0.112 mg oral tablet 1 tablet, By Mouth, Daily, # 28 tablet, 1 Refills, Maintenance, 05/18/22 15:34:00 EDT, [facility], 152.1, cm, 05/08/22 11:14:00 EDT, Height [...] tablet, 4 Refills, Maintenance, 04/11/22 11:27:00 EDT, [facility], 152.1, cm, 02/03/22 10:10:00 EDT, Height Start Date: 04/11/22 Status: Ordered metFORMIN 500 mg oral tablet, extended release 2 tablet = 1,000 mg, By Mouth, Daily, # 60 tablet, 11 Refills, Maintenance, 05/30/22 6:18:00 EST, [facility], Partial fill upon patient request if the prescription is for a schedule II opioiddrug., 152.1, cm, 05/08/22 11:14:00 EDT, Height Start Date: 05/30/22 Status: Ordered Ocuvite Lutein By Mouth, Daily, 0 Refills, Maintenance, 04/03/15 13:16:39 Start Date: 04/03/15 Status: Ordered omeprazole 20 mg oral enteric coated capsule 1 capsule, By Mouth, Daily, R1., # 28 capsule, 5 Refills, Maintenance, 07/28/22 12:14:00 EST, [facility], 152.1, cm, 05/08/22 11:14:00 EDT, Height [...] PAIN Start Date: 09/24/21 Status: Ordered Pen [place], 31 G x 5 mm BD Ultra Fine III See Instructions, # 120 each, Refills 2, Tot. Refills 2, Maintenance, Use four times a day DM [id number] Office visit needed for further refills, 07/21/18 [...] ,E11.319, 02/23/... Start Date: 02/23/18 Status: Ordered UNIFINE PENTIPS PLU 31G X 5 MM MISC UNIFINE PENTIPS PLU 31G X 5 MM MISC, See Instructions, # 100 each, 1 Refills, Maintenance, DIRECTED FOUR TIMES DAILY, 07/04/22 13:41:00 EST, 152.1, cm, 05/08/22 11:14:00 EDT, Height Start Date: 07/04/22 Status: Ordered UNIFINE PNTP MIS [id number] UNIFINE PNTP MIS [id number], See Instructions, # 100 each, 1 Refills, Maintenance, DIRECTED FOUR TIMES DAILY, 05/10/22 10:46:00 EDT, 152.1, cm, 05/08/22 11:14:00 EDT, Height Start Date: 05/10/22 Status: Ordered UNIFINE PNTP MIS [id number] UNIFINE PNTP MIS [id number], See Instructions, # 100 each, 2 Refills, [...] capsule, 2 Refills, Maintenance, 07/02/22 14:28:00 EST, [facility], 152.1, cm, 05/08/22 11:14:00 EDT, Height Start Date: 07/02/22 Status: Ordered Problem List Condition Confirmation Course Effective Dates Status H ealth Status Informant Obesity (BMI 30-39.9) Confirmed Active 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
--- OUTSIDE RECORDS SUMMARY | 2022-12-22 16:59 | XMS_ITS | Continuity of Care Document ---
Author Name Unknown Organization [facility] Serjio lt Address [address] [place] [address]- Care Team Providers Care Steam Plant Operator Name Role Phone Bartolo WILSON, Trinh Tenorio Primary Care Physician [place] [facility] [place] 11/27/21 - 12/27/21 [facility] Adult [address] [place] [address]- Allergies, Adverse Reactions, Alerts Substance Reaction Severity [...] 13-valent vaccine 04/03/15 Given 1Result Comment: [05/03/2018] [facility]-[id number] 2Result Comment: [12/21/2017] [id number] Medications Anecream Topically, 3 times a day, [...] 28 tablet, 5 Refills, 11/04/21 16:58:00 EDT, [facility], 152.1, cm, 09/25/21 11:31:00 EST, Height [...] 5 Refills, 11/01/21 10:43:00 EDT, [facility], 152.1, cm, 09/25/21 11:31:00 EST, Height Start Date: 11/01/21 Status: Ordered Diabetic Shoes Diabetic Shoes, See Instructions, # 1 each, Refills 1, Tot. 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, 03/10/17 10:06:57, Compound Start Date: 03/10/17 Status: Ordered FLUoxetine 40 mg oral capsule 1 capsule, By Mouth, Daily, # 28 capsule, 5 Refills, [facility], 152.1, cm, 09/25/21 11:31:00 EST, Height Start Date: 11/01/21 Status: Ordered furosemide 40 mg oral tablet 1, tablet, By Mouth, Daily, # 28 tablet, Refills 5, Route to Pharmacy Electronically, [facility], 152.1, cm, 09/25/21 11:31:00 EST, Height Start [...] 15 mL, 11 Refills, 11/04/21 17:00:00 EDT, [facility], 152.1, cm, 09/25/21 11:31:00 EST, Height [...] 5, Maintenance, IDDM E11.9, 12/01/19 10:39:00 EDT, [facility], 152.1, cm, 06/14/19 10:04:00 EST, Height, 75.8, [...] tablet, 5 Refills, 11/04/21 16:58:00 EDT, [facility], 152.1, cm, 09/25/21 11:31:00 EST, Height [...] PAIN Start Date: 09/24/21 Status: Ordered Pen [place], 31 G x 5 mm BD Ultra Fine III See Instructions, # 120 each, Refills 2, Tot. 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
--- OUTSIDE RECORDS SUMMARY | 2022-12-22 17:00 | XMS_ITS | Continuity of Care Document ---
Author Name Unknown Organization [facility] Address [address] [place] [address]- Care Team Providers Care Riverboat Captain Name Role Phone Hunter Cortes MD Primary Care Physician Encounter [facility] Date(s): 09/20/19 - 09/30/19 [facility] [address] [place] [address]- [facility] Attending Physician: Catracho Perkins Admitting Physician: Catracho Perkins Referring Physician: Catracho Perkins Allergies, Adverse Reactions, Alerts Substance Reaction Severity [...] 13-valent vaccine 04/03/15 Given 1Result Comment: [05/03/2018] [facility]-[id number] 2Result Comment: [12/21/2017] [id number] Medications aspirin 81 mg oral tablet 1 tablet = 81 mg, By Mouth, Daily, # 30 tablet, 0 Refills, Maintenance, 04/03/15 13:17:10, Tablet Start Date: 04/03/15 Status: Ordered atorvastatin 10 mg oral tablet 1 tablet = 10 mg, By Mouth, Daily, # 30 tablet, 5 Refills, Maintenance, 05/26/19 18:25:06 EST, Tablet Start Date: 05/26/19 Status: Ordered Auto Code Talking Prodigy Meter Auto Code Talking Prodigy Meter, See Instructions, # 1 each, Refills 0, Tot. 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 Refills 5, TAKE (1) CAPSULE BY MOUTH DAILY, [facility]; [facility] Start Date: 06/07/19 Status: Ordered furosemide 40 mg oral tablet 40 mg, 1, tablet, By Mouth, Daily, # 90 tablet, Refills 0, Tot. Refills 0, Maintenance, 08/01/19 16:32:00 EST, Route to Pharmacy Electronically, [facility], This is pt current dose d/c rx on file for 20mg tab, 152.1, cm, 06/14/19 10:04:00... Start Date: 08/01/19 Status: Ordered Glucagon Emergency Kit for Low [...] 80 UNITS SUBCUTANEOUSLY DAILY, # 15 mL, 0 Refills, Maintenance, [facility], 152.1, cm, 06/14/19 10:04:00 EST, Height, 75.8, kg, 06/14/19 10:04:00 EST, Dry Weight Start Date: 09/01/19 Status: Ordered levothyroxine 112 mcg (0.112 mg) oral capsule 1 capsule = 112 mcg, By Mouth, Daily, # 30 capsule, 5 Refills, Maintenance, 06/08/19 10:05:54 EST, Capsule, Replaces 125mcg qday Start Date: 06/08/19 Status: Ordered Yasmeen Sensors 14 day (dispense 2 monthly) Yasmeen Sensors 14 day (dispense 2 monthly), See Instructions, # 2 each, Refills 5, Tot. Refills 5, Maintenance, IDDM E11.9, 09/14/18 11:31:10 EST, Compound Start Date: 09/14/18 Status: Ordered lisinopril 40 mg oral tablet 1 tablet = 40 mg, By Mouth, Daily, # 30 tablet, 2 Refills, Maintenance, 08/19/19 12:09:00 EST, Tablet, [facility], 152.1, cm, 06/14/19 10:04:00 EST, Height, 75.8, kg, 06/14/19 10:04:00 EST, Dry Weight Start Date: 08/19/19 Status: Ordered metFORMIN 500 mg oral tablet, extended release 2 tablet = 1,000 mg, By Mouth, Daily, # 60 tablet, 2 Refills, Maintenance, 08/19/19 12:10:00 EST, ER Tablet, [facility], d/c 500 mg BID metformin RX please, 152.1, cm, 06/14/19 10:04:00 EST, Height, 75.8, kg, 06/14/19 10:04:00 EST, Dry Weight Start Date: 08/19/19 Status: Ordered Ocuvite Lutein By Mouth, Daily, 0 Refills, Maintenance, 04/03/15 13:16:39 Start Date: 04/03/15 Status: Ordered omeprazole 20 mg oral delayed release tablet 1 tablet = 20 mg, By Mouth, Daily, # 30 tablet, 11 Refills, Maintenance, 09/26/19 14:14:00 EDT, [facility], 152.1, cm, 06/14/19 10:04:00 EST, Height, 75.8, kg, 06/14/19 10:04:00 EST, Dry Weight Start Date: 09/26/19 Status: Ordered Pen [place], 31 G x 5 mm BD Ultra Fine III See Instructions, # 120 each, Refills 2, Tot. Refills 2, Maintenance, Use four times a day DM [id number] Office visit needed for further refills, 07/21/18 [...] ,E11.319, 02/23/... 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
--- OUTSIDE RECORDS SUMMARY | 2022-12-22 17:00 | XMS_ITS | Continuity of Care Document ---
Author Name Unknown Organization [facility] Address [address] [place] [address]- Care Team Providers Care Show Card Letterer Name Role Phone Hunter Cortes MD Primary Care Physician [phone] Encounter [facility] Date(s): 08/01/20 - 08/31/20 [facility] [address] [place] [address]- Allergies, Adverse Reactions, Alerts Substance Reaction Severity [...] 13-valent vaccine 04/03/15 Given 1Result Comment: [05/03/2018] [facility]-[id number] 2Result Comment: [12/21/2017] [id number] Medications Anecream Topically, 3 times a day, [...] # 28 capsule, 5 Refills, Soft Stop, 05/09/20 13:09:00 EDT, [facility], 152.1, cm, 04/27/20 10:07:00 EDT, Height, 75.8, kg, 06/14/19 10:04:00 EST, Dry Weight Start Date: 05/09/20 Status: Ordered furosemide 40 mg oral tablet [...] diarrhea, # 60 tablet, 2 Refills, Maintenance, 05/09/20 13:09:00 EDT, ER Tablet, [facility], d/c500 mg BID metformin RX please, 152.1, cm, 04/27/20 10:... Start Date: 05/09/20 Status: Ordered Ocuvite Lutein By Mouth, Daily, 0 Refills, Maintenance, 04/03/15 13:16:39 Start Date: 04/03/15 Status: Ordered omeprazole 20 mg oral delayed release tablet 1 tablet = 20 mg, By Mouth, Daily, # 30 tablet, 5 Refills, Maintenance, 08/25/20 9:22:00 EST, [facility], 152.1, cm, 05/28/20 7:41:00 EST, Height, 75.8, kg, 06/14/19 10:04:00 EST, DryWeight Start Date: 08/25/20 Status: Ordered Pen [place], 31 G x 5 mm BD Ultra Fine III See Instructions, # 120 each, Refills 2, Tot. Refills 2, Maintenance, Use four times a day DM [id number] Office visit needed for further refills, 07/21/18 [...] Obesity (BMI 30-39.9)(Confirmed) Active Complicated bereavement(Confirmed) Active senior living current use of ins ulin - checks [...]
--- OUTSIDE RECORDS SUMMARY | 2022-12-22 17:00 | XMS_ITS | Continuity of Care Document ---
Author Name Unknown Organization [facility] Address [address] [place] [address]- Care Team Providers Care Lithostripper Name Role Phone Hunter Cortes MD Primary Care Physician Encounter [facility] Date(s): 05/30/19 - 08/14/19 [facility] [address] [place] [address]- [facility] Discharge Disposition: A-D/C Home Attending Physician: Corazon Howard MD Admitting Physician: Corazon Howard MD Referring Physician: Lorna Pham DO Allergies, Adverse Reactions, Alerts Substance Reaction Severity [...] 13-valent vaccine 04/03/15 Given 1Result Comment: [05/03/2018] [facility]-[id number] 2Result Comment: [12/21/2017] [id number] Medications aspirin 81 mg oral tablet 1 [...] day, # 60 tablet, 2 Refills, Maintenance, 05/26/19 18:25:07 EST, ER Tablet Start Date: 05/26/19 Status: Ordered Diabetic Shoes Diabetic Shoes, See [...] TAKE (1) CAPSULE BY MOUTH DAILY, [facility]; [facility] Start Date: 06/07/19 Status: [...] FlexTouch 100 units/mL subcutaneous solution See Instructions, Inject 76 units once daily SQ rotate injection sites, # 10 each, 5 Refills, Maintenance, 06/03/19 15:10:53 EST, d/c [id number] Start Date: 06/03/19 Status: Ordered levothyroxine 112 mcg (0.112 mg) [...] Daily, # 30 tablet, 2 Refills, Maintenance, 05/26/19 18:25:08 EST, Tablet Start Date: 05/26/19 Status: Ordered metFORMIN 500 mg oral tablet, extended release 2 tablet = 1,000 mg, By Mouth, Daily, # 60 tablet, 2 Refills, Maintenance, 05/26/19 18:25:05 EST, ER Tablet, d/c 500 mg BID metformin RX please Start Date: 05/26/19 Status: Ordered Ocuvite Lutein By Mouth, Daily, 0 Refills, Maintenance, 04/03/15 13:16:39 Start Date: 04/03/15 Status: Ordered omeprazole 20 mg oral delayed release tablet 1 tablet = 20 mg, By Mouth, Daily, # 30 tablet, 2 Refills, Maintenance, 06/22/19 13:39:15 EST, 152.1, cm, 06/14/19 10:04:53 EST, Height, 75.8, kg, 06/14/19 10:04:53 EST, Dry Weight Start Date: 06/22/19 Status: Ordered Pen [place], 31 G x 5 mm BD Ultra Fine III See Instructions, # 120 each, Refills 2, Tot. 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 Vital Signs Most recent to oldest [Reference Range]: 1 Height 152.1 cm (06/14/19 10:04 AM) Weight 75.8 kg (06/14/19 10:04 AM) Pulse Rate [55-90 bpm] 101 bpm *H* (06/14/19 10:04 AM) Body Mass Index [18.5-24.99] 32.77 *>HHI* (06/14/19 10:04 AM) Blood Pressure [90-138/55-84 mm Hg] 140/ 67mm Hg *H* (06/14/19 10:04 AM) Temperature [96.8-100.4 DegF] 98.3 DegF (06/14/19 10:04 AM) Blood pressure sites Arm, right (06/14/19 10:04 AM) Temperature Route Temporal (06/14/19 10:04 AM) Dry Weight 75.8 kg (06/14/19 10:04 AM) Weight Obtained Via Standing scale (06/14/19 10:04 AM) Dry Weight Obtained Via Pediatric scale (06/14/19 10:04 AM) Social History Social History Type Response Smoking Status Former smoker entered on: 09/14/17 Sex
--- OUTSIDE RECORDS SUMMARY | 2022-12-22 17:00 | XMS_ITS | Continuity of Care Document ---
Author Name Unknown Organization [facility] Address [address] [place] [address]- Care Team Providers Care Gas Appliance Servicer Name Role Phone Bartolo WILSON, Trinh Tenorio Primary Care Physician [place] [facility] [place] 10/31/21 - 11/30/21 [facility] Adult [address] [place] [address]- Allergies, Adverse Reactions, Alerts Substance Reaction Severity [...] 13-valent vaccine 04/03/15 Given 1Result Comment: [05/03/2018] [id number] 2Result Comment: [12/21/2017] [id number] Medications Anecream Topically, 3 times a day, [...] 28 tablet, 5 Refills, 11/04/21 16:58:00 EDT, [facility], 152.1, cm, 09/25/21 11:31:00 EST, [...] 5 Refills, 11/01/21 10:43:00 EDT, [facility], 152.1, cm, 09/25/21 11:31:00 EST, Height Start Date: 11/01/21 Status: Ordered Diabetic Shoes Diabetic Shoes, See Instructions, # 1 each, Refills 1, Tot. 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, 03/10/17 10:06:57, Compound Start Date: 03/10/17 Status: Ordered FLUoxetine 40 mg oral capsule 1 capsule, By Mouth, Daily, # 28 capsule, 5 Refills, [facility], 152.1, cm, 09/25/21 11:31:00 EST, Height Start Date: 11/01/21 Status: Ordered furosemide 40 mg oral tablet 1, tablet, By Mouth, Daily, # 28 tablet, Refills 5, Route to Pharmacy Electronically, [facility], 152.1, cm, 09/25/21 11:31:00 EST, Height Start [...] 15 mL, 11 Refills, 11/04/21 17:00:00 EDT, [facility], 152.1, cm, 09/25/21 11:31:00 EST, Height Start [...] 5, Maintenance, IDDM E11.9, 12/01/19 10:39:00 EDT, [facility], 152.1, cm, 06/14/19 10:04:00 EST, [...] 28 tablet, 5 Refills, 11/04/21 16:58:00 EDT, [facility], 152.1, cm, 09/25/21 11:31:00 EST, Height Start [...] PAIN Start Date: 09/24/21 Status: Ordered Pen [place], 31 G x 5 mm BD Ultra Fine III See Instructions, # 120 each, Refills 2, Tot. 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
--- OUTSIDE RECORDS SUMMARY | 2022-12-22 17:00 | XMS_ITS | Continuity of Care Document ---
Author Name Unknown Organization [facility] Address [address] [place] [address]- Care Team Providers Care Party Bus Driver Name Role Phone Georgie FREEMAN, Ezequiel Chino Primary Care Physician Encounter [facility] Date(s): 07/24/22 - 08/23/22 [facility] Adult [address] [place] [address]- Allergies, Adverse Reactions, Alerts Substance Reaction Severity [...] 1Result Comment: [05/03/2018] [id number] 2Result Comment: [12/21/2017] [id number] Medications Anecream Topically, 3 times a day, [...] tablet, 1 Refills, Maintenance, 07/25/22 16:06:00 EST, [facility], 152.1, cm, 05/08/22 11:14:00 EDT, Height Start Date: 07/25/22 Status: Ordered atorvastatin 10 mg oral tablet 1 tablet, By Mouth, Daily, # 28 tablet, 2 Refills, Maintenance, 03/18/22 21:26:00 EDT, [facility], 152.1, cm, 02/03/22 10:10:00 EDT, Height [...] tablet, 4 Refills, Maintenance, 05/18/22 15:34:00 EDT, [facility], 152.1, cm, 05/08/22 11:14:00 EDT, Height Start Date: 05/18/22 Status: Ordered Diabetic Shoes Diabetic Shoes, See Instructions, # 1 each, Refills 1, Tot. 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 Refills 5, Maintenance, 08/21/22 16:13:00 EST, Route to Pharmacy Electronically, [facility], 152.1, cm, 05/08/22 11:14:00 EDT, Height [...] 15 mL, 5 Refills, 01/08/22 14:09:00 EDT, [facility]... Start Date: 01/08/22 Status: Ordered Lancets [...] # 8each, 5 Refills, 05/28/22 13:24:00 EST, [facility], 152.1, cm, 05/08/22 11:14:00 EDT, Height Start Date: 05/28/22 Status: Ordered levothyroxine 0.112 mg oral tablet 1 tablet, By Mouth, Daily, # 28 tablet, 1 Refills, Maintenance, 05/18/22 15:34:00 EDT, [facility], 152.1, cm, 05/08/22 11:14:00 EDT, Height [...] tablet, 5 Refills, Maintenance, 08/21/22 13:11:00 EST, [facility], 152.1, cm, 05/08/22 11:14:00 EDT, Height Start Date: 08/21/22 Status: Ordered metFORMIN 500 mg oral tablet, extended release 2 tablet = 1,000 mg, By Mouth, Daily, # 60 tablet, 11 Refills, Maintenance, 05/30/22 6:18:00 EST, [facility], Partial fill upon patient request if the prescription is for a schedule II opioiddrug., 152.1, cm, 05/08/22 11:14:00 EDT, Height Start Date: 05/30/22 Status: Ordered Ocuvite Lutein By Mouth, Daily, 0 Refills, Maintenance, 04/03/15 13:16:39 Start Date: 04/03/15 Status: Ordered omeprazole 20 mg oral enteric coated capsule 1 capsule, By Mouth, Daily, R1., # 28 capsule, 5 Refills, Maintenance, 07/28/22 12:14:00 EST, [facility], 152.1, cm, 05/08/22 11:14:00 EDT, Height [...] PAIN Start Date: 09/24/21 Status: Ordered Pen [place], 31 G x 5 mm BD Ultra Fine III See Instructions, # 120 each, Refills 2, Tot. Refills 2, Maintenance, Use four times a day DM [id number] Office visit needed for further refills, 07/21/18 [...] Date: 08/21/22 Status: Ordered UNIFINE PNTP MIS [id number] UNIFINE PNTP MIS [id number], See Instructions, # 100 each, 1 Refills, Maintenance, DIRECTED FOUR TIMES DAILY, 05/10/22 10:46:00 EDT, 152.1, cm, 05/08/22 11:14:00 EDT, Height Start Date: 05/10/22 Status: Ordered UNIFINE PNTP MIS [id number] UNIFINE PNTP MIS [id number], See Instructions, # 100 each, 2 Refills, [...] capsule, 2 Refills, Maintenance, 07/02/22 14:28:00 EST, [facility], 152.1, cm, 05/08/22 11:14:00 EDT, Height Start Date: 07/02/22 Status: Ordered Problem List Condition Confirmation Course Effective Dates Status H ealth Status Informant Obesity (BMI 30-39.9) Confirmed Active Complicated bereavement Confirmed 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
--- OUTSIDE RECORDS SUMMARY | 2022-12-22 17:00 | XMS_ITS | Continuity of Care Document ---
Author Name Unknown Organization [facility] Address [address] [place] [address]- Care Team Providers Care Battery Repairer Name Role Phone Hunter Cortes MD Primary Care Physician [facility]counter [facility] Date(s): 01/30/20 - 02/29/20 [facility] Adult [address] [place] [address]- [facility] Attending Physician: Admtr, Ar8 Admitting Physician: Admtr, Ar8 Referring Physician: Admtr, [...] 13-valent vaccine 04/03/15 Given 1Result Comment: [05/03/2018] [facility]-[id number] 2Result Comment: [12/21/2017] [id number] Medications aspirin 81 mg oral tablet 1 [...] mg, By Mouth, Daily, # 30 tablet, 1 Refills, Maintenance, 02/07/20 12:24:00 EDT, Tablet, [facility], 152.1, cm, 01/30/20 9:07:00 EDT, Height, 75.8, kg, 06/14/19 10:04:00EST, Dry Weight Start Date: 02/07/20 Status: Ordered metFORMIN 500 mg oral tablet, extended release 2 tablet = 1,000 mg, By Mouth, Daily, # 60 tablet, 2 Refills, Maintenance, 02/07/20 12:24:00 EDT, ER Tablet, [facility], d/c 500 mg BID metformin RX please, 152.1, cm, 01/30/20 9:07:00 EDT, Height, 75.8, kg, 06/14/19 10:04:00 EST, Dry Weight Start Date: 02/07/20 Status: Ordered Ocuvite Lutein [...] Weight Start Date: 09/26/19 Status: Ordered Pen [place], 31 G x 5 mm BD Ultra Fine III See Instructions, # 120 each, Refills 2, Tot. 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
--- OUTSIDE RECORDS SUMMARY | 2022-12-22 17:00 | XMS_ITS | Continuity of Care Document ---
Author Name Unknown Organization [facility] Address [address] [place] [address]- Care Team Providers Care Assembler Unit Name Role Phone Hunter Cortes MD Primary Care Physician Encounter [facility] Date(s): 08/28/20 - 09/27/20 [facility] Adult [address] [place] [address]- Attending Physician: AdmtrCatracho Admitting Physician: Admtr, Ar8 [...] 13-valent vaccine 04/03/15 Given 1Result Comment: [05/03/2018] [id number] 2Result Comment: [12/21/2017] [id number] Medications Anecream Topically, 3 times a day, [...] 09/14/20 16:08:00EST, Route to Pharmacy Electronically, [facility], 152.1, cm, 08/28/20 9:20:00 EST, Height, 75.8, [...] DryWeight Start Date: 08/25/20 Status: Ordered Pen [place], 31 G x 5 mm BD Ultra Fine III See Instructions, # 120 each, Refills 2, Tot. 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
--- OUTSIDE RECORDS SUMMARY | 2022-12-22 17:00 | XMS_ITS | Continuity of Care Document ---
Author Name Unknown Organization [facility] ter Address [address] [place] [id number]- Care Team Providers Care Engraver Name Role Phone Hunter Cortes MD Primary Care Physician [phone] Encounter [facility] Date(s): 02/09/20 - 02/09/[address] [address]- [facility] Encounter Diagnosis Right wrist pain(Final) - 02/09/20 Traumatic ecchymosis of right orbit(Final) - 02/09/20 Discharge Disposition: A-D/C Home Attending Physician: Umm Alaniz MD Admitting Physician: Umm Alaniz MD Referring Physician: Not on Staff, Referring MD Allergies, Adverse Reactions, Alerts Substance Reaction [...] 13-valent vaccine 04/03/15 Given 1Result Comment: [05/03/2018] [facility]-[id number] 2Result Comment: [12/21/2017] 29723-461-58 Medications aspirin 81 mg oral tablet 1 [...] Weight Start Date: 09/26/19 Status: Ordered Pen [place], 31 G x 5 mm BD Ultra Fine III See Instructions, # 120 each, Refills 2, Tot. 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 COMPARISON: None. FINDINGS: Right wrist: No acute fracture or dislocation. Severe osteoarthritis of the first carpometacarpal joint. Right forearm: Normal alignment at the wrist no fracture. Right hand: No acute fracture or dislocation. Severe osteoarthritic changes of the DIP joints and moderate changes of the PIP joints. Severe osteophytosis of the first carpometacarpal joint. IMPRESSION: No acute fracture. WSN: [id number] Ordering Physician: Teresa Israel Dictated By: Paul Guerrero MD Dictated Date/Time: 02/09/20 7:31 pm Reviewed By: Paul Guerrero MD Signed By: Paul Guerrero MD Signed Date/Time: 02/09/20 7:31 pm Transcribed By: MIRNA Transcribed Date/Time: 02/09/20 7:26 pm * Exam Date Time Procedure Performing Provider Status 02/09/20 7:24 PM Hand Min 3 Views Right Ignacio De Luna; Auth (Verified) Notes: (Hand Min 3 Views Right) Reason For Exam: Trauma RESULT: Hand Min 3 Views Right Wrist Comp Min 3 Views Right, Hand Min 3 Views Right, Forearm 2 Views Right Reason: Pain after fall. COMPARISON: None. FINDINGS: Right wrist: No acute fracture or dislocation. Severe osteoarthritis of the first carpometacarpal joint. Right forearm: Normal alignment at the wrist no fracture. Right hand: No acute fracture or dislocation. Severe osteoarthritic changes of the DIP joints and moderate changes of the PIP joints. Severe osteophytosis of the first carpometacarpal joint. IMPRESSION: No acute fracture. WSN: [id number] Ordering Physician: Teresa Israel Dictated By: Paul Guerrero MD Dictated Date/Time: 02/09/20 7:31 pm Reviewed By: Paul Guerrero MD Signed By: Paul Guerrero MD Signed Date/Time: 02/09/20 7:31 pm Transcribed By: MIRNA Transcribed Date/Time: 02/09/20 7:26 pm * Exam Date Time Procedure Performing Provider Status 02/09/20 7:24 PM Wrist Comp Min 3 Views Right Zulema De Luna; Auth (Verified) Notes: (Wrist Comp Min 3 Views Right) Reason For Exam: Trauma RESULT: Wrist Comp Min 3 Views Right Wrist Comp Min 3 Views Right, Hand Min 3 Views Right, Forearm 2 Views Right Reason: Pain after fall. COMPARISON: None. FINDINGS: Right wrist: No acute fracture or dislocation. Severe osteoarthritis of the first carpometacarpal joint. Right forearm: Normal alignment at the wrist no fracture. Right hand: No acute fracture or dislocation. Severe osteoarthritic changes of the DIP joints and moderate changes of the PIP joints. Severe osteophytosis of the first carpometacarpal joint. IMPRESSION: No acute fracture. WSN: [id number] Ordering Physician: Teresa Israel Dictated By: Paul Guerrero MD Dictated Date/Time: 02/09/20 7:31 pm Reviewed By: Paul Guerrero MD Signed By: Paul Guerrero MD Signed Date/Time: 02/09/20 7:31 pm Transcribed By: MIRNA Transcribed Date/Time: 02/09/20 7:26 pm Vital Signs Most recent to oldest [Reference Range]: 1 2 3 Oxygen Saturation [94-100 %] 96 % (02/09/20 11:08 PM) 94 % (02/09/20 8:11 PM) 96 % (02/09/20 6:20 PM) Pulse Rate [55-90 bpm] 101 bpm *H* (02/09/20 11:08 PM) 96 bpm *H* (02/09/20 8:11 PM) 97 bpm *H* (02/09/20 6:20 PM) Blood Pressure [90-138/55-84 mm Hg] 156/72mm Hg *H* (02/09/20 11:08 PM) 140/66mm Hg *H* (02/09/20 8:11 PM) 146/70mm Hg *H* (02/09/20 6:20 PM) Respiratory Rate [16-30 br/min] 17 br/min (02/09/20 11:08 PM) 16 br/min (02/09/20 8:11 PM) 16 br/min (02/09/20 6:20 PM) Temperature [96.8-100.4 DegF] 98.7 DegF (02/09/20 6:20 PM) Mode of Delivery (Oxygen) Room air (02/09/20 11:08 PM) Room air (02/09/20 8:11 PM) Room air (02/09/20 6:20 PM) Blood pressure sites Arm, right (02/09/20 8:11 PM) Arm, left (02/09/20 6:20 PM) Temperature Route Oral (02/09/20 6:20 PM) Social History Social History Type Response Smoking Status Former smoker entered on: 09/14/17 Sex
--- OUTSIDE RECORDS SUMMARY | 2022-12-22 17:00 | XMS_ITS | Continuity of Care Document ---
Author Name Unknown Organization [facility] lt Address [address] [place] [address]- Care Team Providers Care Wafer Polisher Name Role Phone Hunter Cortes MD Primary Care Physician Encounter [facility] Date(s): 11/14/20 - 12/14/20 [facility] Adult [address] [place] [address]- Allergies, Adverse Reactions, Alerts Substance Reaction Severity [...] vaccine 04/03/15 Given 1Result Comment: [05/03/2018] [facility]-[id number] 2Result Comment: [12/21/2017] [id number] Medications Anecream Topically, 3 times a day, [...] each, 5 Refills, Maintenance, 07/05/20 13:43:00 EST, [facility], 251-300: 23 units, 301-350: 25 [...] mL, 5 Refills, Maintenance, 08/01/20 13:15:00 EST, [facility], 152.1, cm, 05/28/20 7:41:00 EST, Height, 75.8, kg, 06/14/19 10:04:00 EST, Dry Weight Start Date: 08/01/20 Status: Ordered levothyroxine 112 mcg (0.112 mg) oral capsule 1 capsule = 112 mcg, By Mouth, Daily, # 30 capsule, 2 Refills, Maintenance, 10/13/20 22:20:00 EDT, Capsule, [facility], Replaces 125mcg qday, 152.1, cm, [...] Daily, # 30 tablet, 5 Refills, Maintenance, 12/08/20 8:34:00 EDT, Tablet, [facility], 152.1, cm, 08/28/20 9:20:00 EST, Height, 75.8, kg, 06/14/19 10:04:00 EST, Dry Weight Start Date: 12/08/20 Status: Ordered metFORMIN 500 mg oral tablet, [...] Supply... Start Date: 10/10/20 Status: Ordered Pen [place], 31 G x 5 mm BD Ultra Fine III See Instructions, # 120 each, Refills 2, Tot. 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
--- OUTSIDE RECORDS SUMMARY | 2022-12-22 17:00 | XMS_ITS | Continuity of Care Document ---
Author Name Unknown Organization [facility] lt Address [address] [place] [address]- Care Team Providers Care Party Plan Selling Distributor Name Role Phone Hunter Cortes MD Primary Care Physician Encounter [facility] Date(s): 04/27/20 - 05/04/20 [facility] Adult [address] [place] [address]- [facility] Encounter Diagnosis Vertigo(Discharge Diagnosis) - 04/27/20 Attending Physician: Hunter Cortes MD Allergies, Adverse [...] 04/03/15 Given 1Result Comment: [05/03/2018] [facility]-[id number] 2Result Comment: [12/21/2017] [id number] Medications aspirin 81 mg oral tablet 1 [...] Weight Start Date: 09/26/19 Status: Ordered Pen [place], 31 G x 5 mm BD Ultra Fine III See Instructions, # 120 each, Refills 2, Tot. Refills 2, Maintenance, Use four times a day DM [id number] Office visit needed for further refills, 07/21/18 [...] Status Inform ant Obesity (BMI 30-39.9)(Confirmed) Active alf current use of ins ulin - checks [...] 2 with diabetic back ground retinopathy(Confirmed) Active Diagnosis Diagnosis Type Effective Dates Health Status Clini anibal Service Informant Vertigo Discharge Diagnosis 04/27/20 Vital Signs Most recent to oldest [Reference Range]: 1 Height 152.1 cm (04/27/20 10:07 AM) Weight 79.7 kg (04/27/20 10:07 AM) Oxygen Saturation [94-100 %] 97 % (04/27/20 10:07 AM) Pulse Rate [55-90 bpm] 76 bpm (04/27/20 10:07 AM) Body Mass Index [18.5-24.99] 34.45 *>HHI* (04/27/20 10:07 AM) Blood Pressure [90-138/55-84 mm Hg] 144/ 76mm Hg *H* (04/27/20 10:07 AM) Temperature [96.8-100.4 DegF] 98.5 DegF (04/27/20 10:07 AM) Mode of Delivery (Oxygen) Room air (04/27/20 10:07 AM) Blood pressure sites Arm, left (04/27/20 10:07 AM) Temperature Route Oral (04/27/20 10:07 AM) Weight Obtained Via Standing scale (04/27/20 10:07 AM) Social History Social History Type Response Smoking Status Former smoker entered on: 09/14/17 Sex
--- OUTSIDE RECORDS SUMMARY | 2022-12-22 17:00 | XMS_ITS | Continuity of Care Document ---
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
--- OUTSIDE RECORDS SUMMARY | 2022-12-22 17:00 | XMS_ITS | Continuity of Care Document ---
Author Name Unknown Organization [facility] Serj[facility] lt Address [address] [place] [address]- Care Team Providers Care Director Of Student Services Name Role Phone Georgie FREEMAN, Ezequiel Chino Primary Care Physician Encounter [facility] Date(s): 08/20/22 - 09/19/22 [facility] Adult [address] [place] [address]- Allergies, Adverse Reactions, Alerts Substance Reaction Severity [...] vaccine 04/03/15 Given 1Result Comment: [05/03/2018] [facility]-[id number] 2Result Comment: [12/21/2017] [id number] Medications Anecream Topically, 3 times a day, [...] release tablet 1 tablet, By Mouth, Daily, R1., # 30 tablet, 1 Refills, Maintenance, 09/12/22 11:22:00 EST, [facility], 152.1, cm, 08/22/22 10:03:00 EST, Height Start Date: 09/12/22 Status: Ordered atorvastatin 10 mg oral tablet 1 tablet, By Mouth, Daily, # 28 tablet, 2 Refills, Maintenance, 03/18/22 21:26:00 EDT, [facility], 152.1, cm, 02/03/22 10:10:00 EDT, Height [...] tablet, By Mouth, 2 times a day, ^1R1,1R4., # 56 tablet, 4 Refills, Maintenance, 09/12/22 11:22:00 EST, [facility], 152.1, cm, 08/22/22 10:03:00 EST, Height Start Date: 09/12/22 Status: Ordered Diabetic Shoes Diabetic Shoes, See Instructions, # 1 each, Refills 1, Tot. 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, 03/10/17 10:06:57, Compound Start Date: 03/10/17 Status: Ordered FLUoxetine 40 mg oral capsule 1 capsule, By Mouth, Daily, R1., # 248 capsule, 0 Refills, Maintenance, 07/03/22 6:43:00 EST, [facility], 152.1, cm, 05/08/22 11:14:00 EDT, Height Start Date: 07/03/22 Status: Ordered furosemide 40 mg oral tablet 1, tablet, By Mouth, Daily, # 28 tablet, Refills 5, Tot. Refills 5, Maintenance, 08/21/22 16:13:00 EST, Route to Pharmacy Electronically, [facility], 152.1, cm, 05/08/22 11:14:00 EDT, Height Start Date: 08/21/22 Status: Ordered Glucagon Emergency Kit for Low Blood Sugar 1 mg injection = 1 mg, Intramuscular, Once, repeat in 20 minutes if sugars are still < 60, # 1 kit, 11 Refills,Soft Stop, 02/27/17 10:15:11 Start Date: 02/27/17 Status: Ordered Humalog Kwik Pen 100 units/mL subcutaneous injection See Instructions, INJECT SUBCUTANEOUSLY (UNDER THE SKIN) THREE TIMES DAILY WITH MEALS IF BLOOD SUGAR 120-150 17 UNITS 151-200 19 UNITS 201-250 21 UNITS 251-300 23 UNITS 301-350 25 UNITS 351-400 27 UNITS OVER 400 29 UNITS AND CALL PCP (MAX 87 UNITS PER... Start Date: 09/12/22 Status: Ordered Lancets for Prodigy Auto Code [...] # 8each, 5 Refills, 05/28/22 13:24:00 EST, [facility], 152.1, cm, 05/08/22 11:14:00 EDT, Height Start Date: 05/28/22 Status: Ordered levothyroxine 0.112 mg oral tablet 1 tablet, By Mouth, Daily, # 28 tablet, 1 Refills, Maintenance, 05/18/22 15:34:00 EDT, [facility], 152.1, cm, 05/08/22 11:14:00 EDT, Height [...] tablet, 5 Refills, Maintenance, 08/21/22 13:11:00 EST, [facility], 152.1, cm, 05/08/22 11:14:00 EDT, Height Start Date: 08/21/22 Status: Ordered metFORMIN 500 mg oral tablet, extended release 2 tablet = 1,000 mg, By Mouth, Daily, # 60 tablet, 11 Refills, Maintenance, 05/30/22 6:18:00 EST, [facility], Partial fill upon patient request if the prescription is for a schedule II opioiddrug., 152.1, cm, 05/08/22 11:14:00 EDT, Height Start Date: 05/30/22 Status: Ordered Ocuvite Lutein By Mouth, Daily, 0 Refills, Maintenance, 04/03/15 13:16:39 Start Date: 04/03/15 Status: Ordered omeprazole 20 mg oral enteric coated capsule 1 capsule, By Mouth, Daily, R1., # 28 capsule, 5 Refills, Maintenance, 07/28/22 12:14:00 EST, [facility], 152.1, cm, 05/08/22 11:14:00 EDT, Height [...] PAIN Start Date: 09/24/21 Status: Ordered Pen [place], 31 G x 5 mm BD Ultra Fine III See Instructions, # 120 each, Refills 2, Tot. Refills 2, Maintenance, Use four times a day DM [id number] Office visit needed for further refills, 07/21/18 [...] Date: 08/21/22 Status: Ordered UNIFINE PNTP MIS [id number] UNIFINE PNTP MIS [id number], See Instructions, # 100 each, 1 Refills, Maintenance, DIRECTED FOUR TIMES DAILY, 05/10/22 10:46:00 EDT, 152.1, cm, 05/08/22 11:14:00 EDT, Height Start Date: 05/10/22 Status: Ordered UNIFINE PNTP MIS [id number] UNIFINE PNTP MIS [id number], See Instructions, # 100 each, 2 Refills, [...] capsule, 2 Refills, Maintenance, 07/02/22 14:28:00 EST, [facility], 152.1, cm, 05/08/22 11:14:00 EDT, Height Start Date: 07/02/22 Status: Ordered Problem List Condition Confirmation Course Effective Dates Status H ealth Status Informant Obesity (BMI 30-39.9) Confirmed Active Complicated bereavement Confirmed Active [facility] current use of insulin - checks glucose [...] Team Personnel Name: Ezequiel Jacques MD Position: S Primary Care Physician Member Role: PCP Address: Address: [address] [place] [address]- Care Team Related Persons Name: TAYLOR CUEVAS Address: home [address] [place] [address] Name: COLEEN SANCHEZ
--- OUTSIDE RECORDS SUMMARY | 2022-12-22 17:00 | XMS_ITS | Continuity of Care Document ---
Author Name Unknown Organization [facility] Address [address] [place] [address]- Care Team Providers Care Analysis Tester Name Role Phone Bartolo WILSON, Trinh Tenorio Primary Care Physician [place] [facility] [place] 09/23/21 - 10/23/21 [facility] Adult [address] [place] [address]- Allergies, Adverse Reactions, Alerts Substance Reaction Severity [...] 13-valent vaccine 04/03/15 Given 1Result Comment: [05/03/2018] [facility]-[id number] 2Result Comment: [12/21/2017] 96505-555-53 Medications Anecream Topically, 3 times a day, [...] MOUTH DAILY., # 28 tablet, 5 Refills, 09/13/21 14:22:00 EST, [facility], 152.1, cm, 09/13/21 9:55:00 EST, Height Start Date: 09/13/21 Status: Ordered Auto Code Talking Prodigy Meter Auto Code Talking Prodigy Meter, See Instructions, # 1 each, Refills 0, Tot. Refills 0, Maintenance, Test BS 4x/day and prn for IDDM E11.9, 12/01/17 14:54:30 EDT, Compound Start Date: 12/01/17 Status: Ordered buPROPion 200 mg/12 hours (SR) oral tablet, extended release See Instructions, TAKE 1 TABLET BY MOUTH TWICE DAILY, # 56 tablet, 5 Refills, [facility], 152.1, cm, 08/28/20 9:20:00 EST, Height Start Date: 06/21/21 Status: Ordered Diabetic Shoes Diabetic Shoes, See Instructions, # 1 each, Refills 1, Tot. 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, 03/10/17 10:06:57, Compound Start Date: 03/10/17 Status: Ordered FLUoxetine 40 mg oral capsule 1 capsule, By Mouth, Daily, # 30 capsule, 11 Refills, Maintenance, 07/23/21 9:02:00 EST, [facility], 152.1, cm, 08/28/20 9:20:00 EST, Height Start Date: 07/23/21 Status: Ordered furosemide 40 mg oral tablet See Instructions, TAKE (1) TABLET BY MOUTH DAILY., # 28 tablet, Refills 5, Instructions Replace Required Details, Route to Pharmacy Electronically, [facility], 152.1, cm, 08/28/20 9:20:00 EST, Height Start Date: 08/16/21 Status: Ordered Glucagon Emergency Kit for Low [...] PCP, # 15 mL, 5 Refills, [facility], 152.1, cm, 03/0... Start Date: 10/02/21 Status: [...] DAILY IN THE EVENING, # 15 mL, 0 Refills, [facility], 152.1, cm, 09/13/21 9:55:00 EST, Height Start Date: 09/16/21 Status: Ordered levothyroxine 0.112 mg oral tablet [...] Mouth, Daily, # 28 tablet, 5 Refills, [facility], 152.1, cm, 08/28/20 9:20:00 EST, Height, 75.8, kg, 06/14/19 10:04:00 EST, Dry Weight Start Date: 05/24/21 Status: Ordered MetFORMIN (Eqv-Glucophage XR) 500 mg [...] PAIN Start Date: 09/24/21 Status: Ordered Pen [place], 31 G x 5 mm BD Ultra Fine III See Instructions, # 120 each, Refills 2, Tot. Refills 2, Maintenance, Use four times a day DM [id number] Office visit needed for further refills, 07/21/18 [...] 02/23/... 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
--- OUTSIDE RECORDS SUMMARY | 2022-12-22 17:00 | XMS_ITS | Continuity of Care Document ---
Author Name Unknown Organization [facility] Serj[facility] lt Address [address] [place] [address]- Care Team Providers Care Deli/Bakery Associate Name Role Phone Hunter Cortes MD Primary Care Physician [phone] Encounter [facility] Date(s): 01/30/20 - 02/06/20 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-[id number] 2Result Comment: [12/21/2017] 21340-190-98 Medications aspirin 81 mg oral tablet 1 [...] Weight Start Date: 09/26/19 Status: Ordered Pen [place], 31 G x 5 mm BD Ultra Fine III See Instructions, # 120 each, Refills 2, Tot. 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
--- OUTSIDE RECORDS SUMMARY | 2022-12-22 17:00 | XMS_ITS | Continuity of Care Document ---
Author Name Unknown Organization [facility] Serjio lt Address [address] [place] [address]- Care Team Providers Care Turbine Technician Name Role Phone Bartolo WILSON, Trinh Tenorio Primary Care Physician En[place] [facility] [place] Date(s): 11/01/21 - 12/01/21 [facility] Adult [address] [place] [address]- Allergies, Adverse Reactions, Alerts Substance Reaction Severity [...] Given 1Result Comment: [05/03/2018] [facility]-[id number] 2Result Comment: [12/21/2017] [id number] Medications Anecream Topically, 3 times a day, [...] 28 tablet, 5 Refills, 11/04/21 16:58:00 EDT, [facility], 152.1, cm, 09/25/21 11:31:00 EST, [...] 5 Refills, 11/01/21 10:43:00 EDT, [facility], 152.1, cm, 09/25/21 11:31:00 EST, Height Start Date: 11/01/21 Status: Ordered Diabetic Shoes Diabetic Shoes, See Instructions, # 1 each, Refills 1, Tot. 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, 03/10/17 10:06:57, Compound Start Date: 03/10/17 Status: Ordered FLUoxetine 40 mg oral capsule 1 capsule, By Mouth, Daily, # 28 capsule, 5 Refills, [facility], 152.1, cm, 09/25/21 11:31:00 EST, Height Start Date: 11/01/21 Status: Ordered furosemide 40 mg oral tablet 1, tablet, By Mouth, Daily, # 28 tablet, Refills 5, Route to Pharmacy Electronically, [facility], 152.1, cm, 09/25/21 11:31:00 EST, [...] 15 mL, 11 Refills, 11/04/21 17:00:00 EDT, [facility], 152.1, cm, 09/25/21 11:31:00 EST, Height Start [...] 5, Maintenance, IDDM E11.9, 12/01/19 10:39:00 EDT, [facility], 152.1, cm, 06/14/19 10:04:00 EST, Height, [...] 28 tablet, 5 Refills, 11/04/21 16:58:00 EDT, [facility], 152.1, cm, 09/25/21 11:31:00 EST, Height Start [...] PAIN Start Date: 09/24/21 Status: Ordered Pen [place], 31 G x 5 mm BD Ultra Fine III See Instructions, # 120 each, Refills 2, Tot. 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
--- OUTSIDE RECORDS SUMMARY | 2022-12-22 17:00 | XMS_ITS | Continuity of Care Document ---
Author Name Unknown Organization [facility] Serjio lt Address [address] [place] [address]- Care Team Providers Care Deputy County Attorney Name Role Phone Bartolo WILSON, Trinh Tenorio Primary Care Physician [phone] Encounter [facility] Date(s): 10/17/21 - 11/16/21 [facility] Adult [address] [place] [address]- Allergies, Adverse Reactions, Alerts Substance Reaction Severity [...] 04/03/15 Given 1Result Comment: [05/03/2018] [facility]-[id number] 2Result Comment: [12/21/2017] [id number] Medications Anecream Topically, 3 times a day, [...] 28 tablet, 5 Refills, 11/04/21 16:58:00 EDT, [facility], 152.1, cm, 09/25/21 11:31:00 EST, [...] 5 Refills, 11/01/21 10:43:00 EDT, [facility], 152.1, cm, 09/25/21 11:31:00 EST, Height Start Date: 11/01/21 Status: Ordered Diabetic Shoes Diabetic Shoes, See Instructions, # 1 each, Refills 1, Tot. 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, 03/10/17 10:06:57, Compound Start Date: 03/10/17 Status: Ordered FLUoxetine 40 mg oral capsule 1 capsule, By Mouth, Daily, # 28 capsule, 5 Refills, [facility], 152.1, cm, 09/25/21 11:31:00 EST, Height Start Date: 11/01/21 Status: Ordered furosemide 40 mg oral tablet 1, tablet, By Mouth, Daily, # 28 tablet, Refills 5, Route to Pharmacy Electronically, [facility], 152.1, cm, 09/25/21 11:31:00 EST, Height [...] 15 mL, 11 Refills, 11/04/21 17:00:00 EDT, [facility], 152.1, cm, 09/25/21 11:31:00 [...] 5, Maintenance, IDDM E11.9, 12/01/19 10:39:00 EDT, [facility], 152.1, cm, 06/14/19 10:04:00 EST, Height, [...] 28 tablet, 5 Refills, 11/04/21 16:58:00 EDT, [facility], 152.1, cm, 09/25/21 11:31:00 [...] PAIN Start Date: 09/24/21 Status: Ordered Pen [place], 31 G x 5 mm BD Ultra Fine III See Instructions, # 120 each, Refills 2, Tot. Refills 2, Maintenance, Use four times a day DM [id number] Office visit needed for further refills, 07/21/18 [...] 28 capsule, 5 Refills, [facility], 152.1, cm, 08/28/20 9:20:00 EST, Height Start Date: 08/16/21 Status: Ordered Problem List Condition Effective Dates Status Health Status Inform ant Obesity (BMI 30-39.9)(Confirmed) Active Complicated bereavement(Confirmed) Active assisted current use of ins ulin - checks [...]
--- OUTSIDE RECORDS SUMMARY | 2022-12-22 17:00 | XMS_ITS | Continuity of Care Document ---
Author Name Unknown Organization [facility] Address [address] [place] [address]- Care Team Providers Care Narcotics Investigator Name Role Phone Sophia FREEMAN, Hunter Thornton Primary Care Physician [phone] [place] [facility] [place] 08/04/19 [facility] [address] [place] [address]- [facility] Attending Physician: AdmCatracho fitzgerald Admitting Physician: AdmtrCatracho Referring Physician: Admtr ArElizabeth Allergies, Adverse Reactions, Alerts Substance Reaction Severity [...] 1Result Comment: [05/03/2018] [facility]-[id number] 2Result Comment: [12/21/2017] [id number] Medications aspirin 81 mg oral tablet 1 [...] Weight Start Date: 06/22/19 Status: Ordered Pen [place], 31 G x 5 mm BD Ultra Fine III See Instructions, # 120 each, Refills 2, Tot. Refills 2, Maintenance, Use four times a day DM [id number] Office visit needed for further refills, 07/21/18 [...] Effective Dates Status Health Status Inform ant [facility] current use of insulin(Confirmed) Active Exudative macular [...]
--- OUTSIDE RECORDS SUMMARY | 2022-12-22 17:00 | XMS_ITS | Continuity of Care Document ---
Author Name Unknown Organization [facility] Serjio lt Address [address] [place] [address]- Care Team Providers Care Custodian Manager Name Role Phone Hunter Cortes MD Primary Care Physician Encounter [facility] Date(s): 10/10/20 - 11/09/20 [facility] Adult [address] [place] [address]- Allergies, Adverse Reactions, Alerts Substance Reaction Severity [...] 13-valent vaccine 04/03/15 Given 1Result Comment: [05/03/2018] [facility]-[id number] 2Result Comment: [12/21/2017] [id number] Medications Anecream Topically, 3 times a day, [...] tablet, 11 Refills, Maintenance, 10/15/20 17:04:00 EDT, [facility], 152.1, cm, 08/28/20 9:20:00 EST, [...] Supply... Start Date: 10/10/20 Status: Ordered Pen [place], 31 G x 5 mm BD Ultra Fine III See Instructions, # 120 each, Refills 2, Tot. 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
--- OUTSIDE RECORDS SUMMARY | 2022-12-22 17:00 | XMS_ITS | Continuity of Care Document ---
Author Name Unknown Organization [facility] Serjio lt Address [address] [place] [address]- Care Team Providers Care Automotive Software Engineer Name Role Phone Georgie FREEMAN, Ezequiel Chino Primary Care Physician [phone] [facility] [place] Date(s): 04/23/22 - 05/23/22 [facility] Adult [address] [place] [address]- Allergies, Adverse Reactions, Alerts Substance Reaction Severity [...] 13-valent vaccine 04/03/15 Given 1Result Comment: [05/03/2018] [facility]-[id number] 2Result Comment: [12/21/2017] [id number] Medications Anecream Topically, 3 times a day, [...] tablet, 1 Refills, Maintenance, 05/18/22 15:34:00 EDT, [facility], 152.1, cm, 05/08/22 11:14:00 EDT, Height Start Date: 05/18/22 Status: Ordered atorvastatin 10 mg oral tablet 1 tablet, By Mouth, Daily, # 28 tablet, 2 Refills, Maintenance, 03/18/22 21:26:00 EDT, [facility], 152.1, cm, 02/03/22 10:10:00 EDT, Height [...] tablet, 4 Refills, Maintenance, 05/18/22 15:34:00 EDT, [facility], 152.1, cm, 05/08/22 11:14:00 EDT, Height Start Date: 05/18/22 Status: Ordered D3 50 mcg (2000 intl units) oral capsule 1 capsule, By Mouth, Daily, # 28 capsule, 2 Refills, Maintenance, 03/20/22 6:57:00 EDT, [facility], 152.1, cm, 02/03/22 10:10:00 EDT, Height Start Date: 03/20/22 Status: Ordered Diabetic Shoes Diabetic Shoes, See Instructions, # 1 each, Refills 1, Tot. 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, 03/10/17 10:06:57, Compound Start Date: 03/10/17 Status: Ordered FLUoxetine 40 mg oral capsule 1 capsule, By Mouth, Daily, # 28 capsule, 5 Refills, [facility], 152.1, cm, 09/25/21 11:31:00 EST, Height Start Date: 11/01/21 Status: Ordered furosemide 40 mg oral tablet 1, tablet, By Mouth, Daily, # 28 tablet, Refills 5, Maintenance, 03/18/22 12:07:00 EDT, [facility], cm, 02/03/22 10:10:00 EDT, Height [...] 15 mL, 5 Refills, 01/08/22 14:09:00 EDT, [facility] Start Date: 01/08/22 Status: Ordered Lancets for Prodigy Auto Code Talking Meter Lancets for Prodigy Auto Code Talking Meter, See Instructions, # 1 each, Refills 6, Tot. Refills 6,Maintenance, Use as directed for DM II E11.9, E11.319 to test blood sugar 6-7 times daily, 12/04/1709:33:13, Compound Start Date: 12/04/16 Status: Ordered Levemir FlexTouch 100 units/mL subcutaneous solution See Instructions, INJECT 65 UNITS SUBCUTANEOUSLY DAILY IN THE EVENING, # 15 mL, 11 Refills, 11/04/21 17:00:00 EDT, [facility], 152.1, cm, 09/25/21 11:31:00 EST, Height Start Date: 11/04/21 Status: Ordered levothyroxine 0.112 mg oral tablet 1 tablet, By Mouth, Daily, # 28 tablet, 1 Refills, Maintenance, 05/18/22 15:34:00 EDT, [facility], 152.1, cm, 05/08/22 11:14:00 EDT, Height [...] tablet, 4 Refills, Maintenance, 04/11/22 11:27:00 EDT, [facility], 152.1, cm, 02/03/22 10:10:00 EDT, Height Start Date: 04/11/22 Status: Ordered MetFORMIN (Eqv-Glucophage XR) 500 mg oral tablet, extended release 1 tablet, By Mouth, Daily, # 28 tablet, 1 Refills, Maintenance, 05/18/22 15:34:00 EDT, [facility], 152.1, cm, 05/08/22 11:14:00 EDT, Height Start Date: 05/18/22 Status: Ordered Ocuvite Lutein By Mouth, Daily, 0 Refills, Maintenance, 04/03/15 13:16:39 Start Date: 04/03/15 Status: Ordered omeprazole 20 mg oral enteric coated capsule 1 capsule, By Mouth, Daily, # 28 capsule, 0 Refills, Maintenance, 05/18/22 15:34:00 EDT, [facility], 152.1, cm, 05/08/22 11:14:00 EDT, Height [...] PAIN Start Date: 09/24/21 Status: Ordered Pen [place], 31 G x 5 mm BD Ultra Fine III See Instructions, # 120 each, Refills 2, Tot. Refills 2, Maintenance, Use four times a day DM [id number] Office visit needed for further refills, 07/21/18 [...] 02/23/... 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
--- OUTSIDE RECORDS SUMMARY | 2022-12-22 17:00 | XMS_ITS | Continuity of Care Document ---
Author Name Unknown Organization [facility] Serjio lt Address [address] [place] [address]- Care Team Providers Care Claim Agent Name Role Phone Bartolo WILSON, Trinh Tenorio Primary Care Physician [phone] Encounter [facility] [place] Date(s): 09/18/21 - 10/18/21 [facility] [address] [place] [address]- Allergies, Adverse Reactions, Alerts Substance Reaction Severity [...] 1Result Comment: [05/03/2018] [facility]-[id number] 2Result Comment: [12/21/2017] [id number] Medications Anecream Topically, 3 times a day, [...] DAILY, # 56 tablet, 5 Refills, [facility], 152.1, cm, 08/28/20 9:20:00 EST, Height Start [...] Required Details, Route to Pharmacy Electronically, [facility], 152.1, cm, 08/28/20 9:20:00 EST, Height Start [...] Daily, # 28 tablet, 5 Refills, [facility], 152.1, cm, 08/28/20 9:20:00 EST, Height, 75.8, [...] PAIN Start Date: 09/24/21 Status: Ordered Pen [place], 31 G x 5 mm BD Ultra Fine III See Instructions, # 120 each, Refills 2, Tot. 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
--- OUTSIDE RECORDS SUMMARY | 2022-12-22 17:00 | XMS_ITS | Continuity of Care Document ---
Author Name Unknown Organization [facility] Serjio lt Address [address] [place] [address]- Care Team Providers Care Integrity Specialist Name Role Phone Bartolo WILSON, Trinh Tenorio Primary Care Physician [phone] [place] [facility] [place] 11[place]14[place] - 11/21/21 [facility] Adult [address] [place] [address]- Attending Physician: Georgie FREEMAN, Ezequiel Chino Allergies, [...] 13-valent vaccine 04/03/15 Given 1Result Comment: [05/03/2018] [facility]-[id number] 2Result Comment: [12/21/2017] 52918-404-67 Medications Anecream Topically, 3 times a day, [...] 28 tablet, 5 Refills, 11/04/21 16:58:00 EDT, [place], 152.1, cm, 09/25/21 11:31:00 EST, Height Start [...] 5 Refills, 11/01/21 10:43:00 EDT, [facility], 152.1, cm, 09/25/21 11:31:00 EST, Height [...] 15 mL, 11 Refills, 11/04/21 17:00:00 EDT, [facility], 152.1, cm, 09/25/21 11:31:00 EST, Height [...] 5, Maintenance, IDDM E11.9, 12/01/19 10:39:00 EDT, [facility], 152.1, cm, 06/14/19 10:04:00 EST, [...] 28 tablet, 5 Refills, 11/04/21 16:58:00 EDT, [place], 152.1, cm, 09/25/21 11:31:00 EST, Height Start [...] PAIN Start Date: 09/24/21 Status: Ordered Pen [place], 31 G x 5 mm BD Ultra Fine III See Instructions, # 120 each, Refills 2, Tot. 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 [...] oldest [Reference Range]: 1 Height 152.1 cm (11/14/21 1:33 PM) Weight 75.5 kg (11/14/21 1:33 PM) Oxygen Saturation [94-100 %] 96 % (11/14/21 1:33 PM) Pulse Rate [55-90 bpm] 102 bpm *H* (11/14/21 1:33 PM) Body Mass Index [18.5-24.99] 32.64 *>HHI* (11/14/21 1:33 PM) Blood Pressure [90-138/55-84 mm Hg] 115/ 78mm Hg (11/14/21 1:33 PM) Temperature [96.8-100.4 DegF] 98.0 DegF (11/14/21 1:33 PM) Mode of Delivery (Oxygen) Room air (11/14/21 1:33 PM) Blood pressure sites Arm, left (11/14/21 1:33 PM) Temperature Route Oral (11/14/21 1:33 PM) Weight Obtained Via Standing scale (11/14/21 1:33 PM) Social History Social History Type Response Smoking Status Former smoker entered on: 09/14/17 Sex
--- OUTSIDE RECORDS SUMMARY | 2022-12-22 17:00 | XMS_ITS | Continuity of Care Document ---
Author Name Unknown Organization [facility] Cullen Perdomo Serjio lt Address [address] [place] [address]- Care Team Providers Care Tile And Marble Installer Name Role Phone Georgie FREEMAN, Ezequiel Chino Primary Care Physician Encounter [facility] Date(s): 11/19/22 - 12/19/22 [facility] Adult [address] [place] [address]- Attending Physician: Admtr, Ar8 Admitting Physician: Admtr, [...] 1Result Comment: [05/03/2018] [facility]-[id number] 2Result Comment: [12/21/2017] [id number] Medications Anecream Topically, 3 times a day, [...] By Mouth, Daily, R1., # 30 tablet, 5 Refills, Maintenance, 11/19/22 13:51:00 EDT, [facility], 152.1, cm, 08/22/22 10:03:00 EST, Height Start Date: 11/19/22 Status: Ordered atorvastatin 10 mg oral tablet 1 tablet, By Mouth, Daily, R4., # 28 tablet, 5 Refills, Maintenance, 11/05/22 6:36:00 EDT, [facility], 152.1, cm, 08/22/22 10:03:00 EST, Height Start Date: 11/05/22 Status: Ordered Auto Code Talking Prodigy Meter [...] tablet, 4 Refills, Maintenance, 09/12/22 11:22:00 EST, [facility], 152.1, cm, 08/22/22 10:03:00 EST, Height Start Date: 09/12/22 Status: Ordered Diabetic Shoes Diabetic Shoes, See Instructions, # 1 each, Refills 1, Tot. 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 Refills 5, Maintenance, 08/21/22 16:13:00 EST, Route to Pharmacy Electronically, [facility], 152.1, cm, 05/08/22 11:14:00 EDT, Height [...] # 8each, 5 Refills, 05/28/22 13:24:00 EST, [facility], 152.1, cm, 05/08/22 11:14:00 EDT, Height Start Date: 05/28/22 Status: Ordered levothyroxine 0.112 mg oral tablet 1 tablet, By Mouth, Daily, # 28 tablet, 1 Refills, Maintenance, 05/18/22 15:34:00 [facility], [facility], cm, 05/08/22 11:14:00 EDT, Height [...] tablet, 5 Refills, Maintenance, 08/21/22 13:11:00 EST, [facility], 152.1, cm, 05/08/22 11:14:00 EDT, Height Start Date: 08/21/22 Status: Ordered metFORMIN 500 mg oral tablet, extended release 2 tablet = 1,000 mg, By Mouth, Daily, # 60 tablet, 11 Refills, Maintenance, 05/30/22 6:18:00 EST, [facility], Partial fill upon patient request if the prescription is for a schedule II opioiddrug., 152.1, cm, 05/08/22 11:14:00 EDT, Height Start Date: 05/30/22 Status: Ordered Ocuvite Lutein By Mouth, Daily, 0 Refills, Maintenance, 04/03/15 13:16:39 Start Date: 04/03/15 Status: Ordered omeprazole 20 mg oral enteric coated capsule 1 capsule, By Mouth, Daily, R1., # 28 capsule, 5 Refills, Maintenance, 07/28/22 12:14:00 EST, [facility], 152.1, cm, 05/08/22 11:14:00 EDT, Height [...] PAIN Start Date: 09/24/21 Status: Ordered Pen [place], 31 G x 5 mm BD Ultra Fine III See Instructions, # 120 each, Refills 2, Tot. Refills 2, Maintenance, Use four times a day DM [id number] Office visit needed for further refills, 07/21/18 [...] Date: 08/21/22 Status: Ordered UNIFINE PNTP MIS [id number] UNIFINE PNTP MIS [id number], See Instructions, # 100 each, 1 Refills, Maintenance, DIRECTED FOUR TIMES DAILY, 05/10/22 10:46:00 EDT, 152.1, cm, 05/08/22 11:14:00 EDT, Height Start Date: 05/10/22 Status: Ordered UNIFINE PNTP MIS [id number] UNIFINE PNTP MIS [id number], See Instructions, # 100 each, 2 Refills, DIRECTED FOUR TIMES DAILY, 152.1, cm, 02/03/22 10:10:00 EDT, Height Start Date: 02/18/22 Status: Ordered VITAMIN D3 2,000 UNIT SOFTGEL VITAMIN D3 2,000 UNIT SOFTGEL, 1, capsule, By Mouth, Daily, # 28 capsule, 5 Refills, 152.1, cm, 09/25/21 11:31:00 EST, Height Start Date: 11/01/21 Status: Ordered Vitamin D3 2000 intl units oral capsule See Instructions, TAKE 1 CAPSULE BY MOUTH ONCE A DAY ^1R1, # 28 capsule, 5 Refills, Maintenance, 11/28/22 11:00:00 EDT, [facility], 152.1, cm, 08/22/22 10:03:00 EST, Height Start Date: 11/28/22 Status: Ordered Problem List Condition Confirmation Course Effective Dates Status H ealth Status Informant Obesity (BMI 30-39.9) Confirmed Active 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 [...] Status Former smoker entered on: 09/14/17 Sex Cardiology * Event Display: Non BH Cardiovascular Results Authored Date: * Event Display: Non Cardiovascular Results Authored Date: Laboratory * Event Display: Non Lab Results Authored Date: * Event Display: Non BH Lab Results Authored Date: CT Abdomen * Event Display: CT Scan Abdomen Authored Date: * Event Display: CT Scan Abdomen Authored Date: MG Breast Views * Event Display: MM Mammogram Authored Date: Patient Care team information Care Team Personnel Name: Georgie FREEMAN, Ezequiel Chino Position: [facility] Physician - Primary Care Member Role: PCP Address: Address: [address] [place] [address]- Care Team Related Persons Name: TAYLOR CEUVAS Address: [address] [place] [id number] Name: COLEEN SANCHEZ
--- OUTSIDE RECORDS SUMMARY | 2022-12-22 17:00 | XMS_ITS | Continuity of Care Document ---
Author Name Unknown Organization [facility] Conor Serjio lt Address [address] [place] [address]- Care Team Providers Care Router Operator Name Role Phone Hunter Cortes MD Primary Care Physician Encounter [facility] [place] Date(s): 05/07/20 - 05/14/20 [facility] Adult [address] [place] [address]- [facility] Encounter Diagnosis Depression, major(Discharge Diagnosis) - 05/07/20 Attending Physician: Hunter Cortes MD Allergies, Adverse [...] 04/03/15 Given 1Result Comment: [05/03/2018] [facility]-[id number] 2Result Comment: [12/21/2017] [id number] Medications aspirin 81 mg oral tablet 1 [...] Weight Start Date: 09/26/19 Status: Ordered Pen [place], 31 G x 5 mm BD Ultra Fine III See Instructions, # 120 each, Refills 2, Tot. 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
--- OUTSIDE RECORDS SUMMARY | 2022-12-22 17:00 | XMS_ITS | Continuity of Care Document ---
Author Name Unknown Organization [facility] Serjio lt Address [address] [place] [address]- Care Team Providers Care Machine Tank Operator Name Role Phone Georgie FREEMAN, Ezequiel Chino Primary Care Physician Encounter [facility] Date(s): 07/01/22 - 07/31/22 [facility] Adult [address] [place] [address]- Allergies, Adverse Reactions, Alerts Substance Reaction Severity [...] 13-valent vaccine 04/03/15 Given 1Result Comment: [05/03/2018] [facility]-[id number] 2Result Comment: [12/21/2017] [id number] Medications Anecream Topically, 3 times a day, [...] tablet, 1 Refills, Maintenance, 07/25/22 16:06:00 EST, [facility], 152.1, cm, 05/08/22 11:14:00 EDT, Height Start Date: 07/25/22 Status: Ordered atorvastatin 10 mg oral tablet 1 tablet, By Mouth, Daily, # 28 tablet, 2 Refills, Maintenance, 03/18/22 21:26:00 EDT, [facility], 152.1, cm, 02/03/22 10:10:00 EDT, Height [...] tablet, 4 Refills, Maintenance, 05/18/22 15:34:00 EDT, [facility], 152.1, cm, 05/08/22 11:14:00 EDT, Height Start Date: 05/18/22 Status: Ordered Diabetic Shoes Diabetic Shoes, See Instructions, # 1 each, Refills 1, Tot. 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, 03/10/17 10:06:57, Compound Start Date: 03/10/17 Status: Ordered FLUoxetine 40 mg oral capsule 1 capsule, By Mouth, Daily, R1., # 248 capsule, 0 Refills, Maintenance, 07/03/22 6:43:00 EST, [facility], 152.1, cm, 05/08/22 11:14:00 EDT, Height Start Date: 07/03/22 Status: Ordered furosemide 40 mg oral tablet 1, tablet, By Mouth, Daily, # 28 tablet, Refills 5, Maintenance, 03/18/22 12:07:00 EDT, Route to Pharmacy Electronically, [facility], 152.1, cm, 02/03/22 10:10:00 EDT, Height [...] 15 mL, 5 Refills, 01/08/22 14:09:00 EDT, [facility]... Start Date: 01/08/22 Status: Ordered Lancets [...] # 8each, 5 Refills, 05/28/22 13:24:00 EST, [facility], 152.1, cm, 05/08/22 11:14:00 EDT, Height Start Date: 05/28/22 Status: Ordered levothyroxine 0.112 mg oral tablet 1 tablet, By Mouth, Daily, # 28 tablet, 1 Refills, Maintenance, 05/18/22 15:34:00 EDT, [facility], 152.1, cm, 05/08/22 11:14:00 EDT, Height [...] tablet, 4 Refills, Maintenance, 04/11/22 11:27:00 EDT, [facility], 152.1, cm, 02/03/22 10:10:00 EDT, Height Start Date: 04/11/22 Status: Ordered metFORMIN 500 mg oral tablet, extended release 2 tablet = 1,000 mg, By Mouth, Daily, # 60 tablet, 11 Refills, Maintenance, 05/30/22 6:18:00 EST, [facility], Partial fill upon patient request if the prescription is for a schedule II opioiddrug., 152.1, cm, 05/08/22 11:14:00 EDT, Height Start Date: 05/30/22 Status: Ordered Ocuvite Lutein By Mouth, Daily, 0 Refills, Maintenance, 04/03/15 13:16:39 Start Date: 04/03/15 Status: Ordered omeprazole 20 mg oral enteric coated capsule 1 capsule, By Mouth, Daily, R1., # 28 capsule, 5 Refills, Maintenance, 07/28/22 12:14:00 EST, [facility], 152.1, cm, 05/08/22 11:14:00 EDT, Height [...] PAIN Start Date: 09/24/21 Status: Ordered Pen [place], 31 G x 5 mm BD Ultra Fine III See Instructions, # 120 each, Refills 2, Tot. Refills 2, Maintenance, Use four times a day DM [id number] Office visit needed for further refills, 07/21/18 [...] Date: 07/04/22 Status: Ordered UNIFINE PNTP MIS [id number] UNIFINE PNTP MIS [id number], See Instructions, # 100 each, 1 Refills, Maintenance, DIRECTED FOUR TIMES DAILY, 05/10/22 10:46:00 EDT, 152.1, cm, 05/08/22 11:14:00 EDT, Height Start Date: 05/10/22 Status: Ordered UNIFINE PNTP MIS [id number] UNIFINE PNTP MIS [id number], See Instructions, # 100 each, 2 Refills, [...] capsule, 2 Refills, Maintenance, 07/02/22 14:28:00 EST, [facility], 152.1, cm, 05/08/22 11:14:00 EDT, Height Start Date: 07/02/22 Status: Ordered Problem List Condition Confirmation Course Effective Dates Status H ealth Status Informant Obesity (BMI 30-39.9) Confirmed Active 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
--- OUTSIDE RECORDS SUMMARY | 2022-12-22 17:00 | XMS_ITS | Continuity of Care Document ---
Author Name Unknown Organization [facility] [place] Serjio lt Address [address] [place] [address]- Care Team Providers Care Refrigerating Engineer Name Role Phone Bartolo WILSON, Trinh Tenorio Primary Care Physician Encounter [facility] Date(s): 09/25/21 - 10/02/21 [facility] [place] Adult [address] [place] [address]- Attending Physician: Georgie FREEMAN, Ezequiel Chino Allergies, [...] 13-valent vaccine 04/03/15 Given 1Result Comment: [05/03/2018] [facility]-[id number] 2Result Comment: [12/21/2017] [id number] Medications Anecream Topically, 3 times a day, [...] DAILY, # 56 tablet, 5 Refills, [facility], 152.1, cm, 08/28/20 9:20:00 EST, Height Start [...] Required Details, Route to Pharmacy Electronically, [facility], 152.1, cm, 08/28/20 9:20:00 EST, [...] Daily, # 28 tablet, 5 [facility], cm, 08/28/20 9:20:00 EST, Height, 75.8, [...] Mouth, Daily, # 28 capsule, 2 Refills, [facility], 152.1, cm, 08/28/20 9:20:00 EST, Height Start Date: 07/19/21 Status: Ordered one walker one walker, See [...] PAIN Start Date: 09/24/21 Status: Ordered Pen [place], 31 G x 5 mm BD Ultra Fine III See Instructions, # 120 each, Refills 2, Tot. Refills 2, Maintenance, Use four times a day DM [id number] Office visit needed for further refills, 07/21/18 [...] DAILY, # 28 capsule, 5 Refills, [facility], 152.1, cm, 08/28/20 9:20:00 EST, Height Start Date: 08/16/21 Status: Ordered Problem List Condition Effective Dates Status Health Status Inform ant Obesity (BMI 30-39.9)(Confirmed) Active Complicated bereavement(Confirmed) Active snf current use of ins ulin - checks [...] [Reference Range]: 1 2 Height 152.1 cm (09/25/21 11:31 AM) 152.1 cm (09/25/21 11:16 AM) Weight 78.6 kg (09/25/21 11:16 AM) Oxygen Saturation [94-100 %] 98 % (09/25/21 11:16 AM) Pulse Rate [55-90 bpm] 74 bpm (09/25/21 11:16 AM) Body Mass Index [18.5-24.99] 33.98 *>HHI* (09/25/21 11:16 AM) Blood Pressure [90-138/55-84 mm Hg] 166/ 78mm Hg *H* (09/25/21 11:31 AM) 169/78mm Hg *H* (09/25/21 11:16 AM) Blood pressure sites Arm, left (09/25/21 11:16 AM) Weight Obtained Via Standing scale (09/25/21 11:16 AM) Social History Social History Type Response Smoking Status Former smoker entered on: 09/14/17 Sex
--- OUTSIDE RECORDS SUMMARY | 2022-12-22 17:00 | XMS_ITS | Continuity of Care Document ---
Author Name Unknown Organization [facility] Address [address] [place] [address]- Care Team Providers Care Abalone Fisherman Name Role Phone Hunter Cortes MD Primary Care Physician [phone] Encounter 10/07/20 - 11/26/20 [facility] [address] [place] [id number]- Discharge Disposition: PER CLIENT REQUEST Allergies, Adverse Reactions, Alerts Substance Reaction Severity [...] vaccine 04/03/15 Given 1Result Comment: [05/03/2018] [facility]-[id number] 2Result Comment: [12/21/2017] [id number] Medications Anecream Topically, 3 times a day, [...] 09/14/20 16:08:00EST, Route to Pharmacy Electronically, [facility], 152.1, cm, 08/28/20 9:20:00 EST, Height, 75.8, [...] Supply... Start Date: 10/10/20 Status: Ordered Pen [place], 31 G x 5 mm BD Ultra Fine III See Instructions, # 120 each, Refills 2, Tot. Refills 2, Maintenance, Use four times a day DM [id number] Office visit needed for further refills, 07/21/18 [...] 11 Refills, Maintenance, 09/14/20 16:08:00 EST, [facility], 152.1, cm, 08/28/20 9:20:00 EST, Height, 75.8, [...]
--- OUTSIDE RECORDS SUMMARY | 2022-12-22 17:00 | XMS_ITS | Continuity of Care Document ---
Author Name Unknown Organization [facility] Serjio lt Address [address] [place] [address]- Care Team Providers Care Woodwinds Teacher Name Role Phone Bartolo WILSON, Trinh Tenorio Primary Care Physician Encounter [facility] [place] Date(s): 10/10/21 - 11/09/21 [facility] Adult [address] [place] [address]- Allergies, Adverse Reactions, Alerts Substance Reaction Severity [...] 04/03/15 Given 1Result Comment: [05/03/2018] [facility]-[id number] 2Result Comment: [12/21/2017] [id number] Medications Anecream Topically, 3 times a day, [...] 5 Refills, 11/04/21 16:58:00 EDT, [facility], 152.1, cm, 09/25/21 11:31:00 EST, [...] 5 Refills, 11/01/21 10:43:00 EDT, [facility], 152.1, cm, 09/25/21 11:31:00 EST, Height Start Date: 11/01/21 Status: Ordered Diabetic Shoes Diabetic Shoes, See Instructions, # 1 each, Refills 1, Tot. 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, 03/10/17 10:06:57, Compound Start Date: 03/10/17 Status: Ordered FLUoxetine 40 mg oral capsule 1 capsule, By Mouth, Daily, # 28 capsule, 5 Refills, [facility], 152.1, cm, 09/25/21 11:31:00 EST, Height Start Date: 11/01/21 Status: Ordered furosemide 40 mg oral tablet 1, tablet, By Mouth, Daily, # 28 tablet, Refills 5, Route to Pharmacy Electronically, [facility], 152.1, cm, 09/25/21 11:31:00 EST, [...] 15 mL, 11 Refills, 11/04/21 17:00:00 EDT, [facility], 152.1, cm, 09/25/21 11:31:00 EST, Height Start [...] Maintenance, IDDM E11.9, 12/01/19 10:39:00 EDT, [facility], 152.1, cm, 06/14/19 10:04:00 [...] 28 tablet, 5 Refills, 11/04/21 16:58:00 EDT, [facility], 152.1, cm, 09/25/21 11:31:00 EST, Height Start [...] PAIN Start Date: 09/24/21 Status: Ordered Pen [place], 31 G x 5 mm BD Ultra Fine III See Instructions, # 120 each, Refills 2, Tot. Refills 2, Maintenance, Use four times a day DM [id number] Office visit needed for further refills, 07/21/18 [...] DAILY, # 28 capsule, 5 Refills, [facility], 152.1, cm, 08/28/20 9:20:00 EST, [...]
[2022-12-22 17:01] LABS: IDNOW Serial# 9DB6401D
--- OUTSIDE RECORDS SUMMARY | 2022-12-22 17:01 | XMS_ITS | Continuity of Care Document ---
Author Name Unknown Organization [facility] TELL[facility] Onc[facility] y Address [address] [place] [address]- Care Team Providers Care Mortician Investigator Name Role Phone Sophia FREEMAN, Hunter Thornton Primary Care Physician [phone] Encounter [facility] Date(s): 07/22/19 - 08/24/19 [facility] [address] [place] [address]- [facility] Attending Physician: Rosario Marquis MD Admitting Physician: Rosario Marquis MD Referring Physician: Corazon Howard MD Allergies, Adverse Reactions, Alerts Substance Reaction [...] 04/03/15 Given 1Result Comment: [05/03/2018] [facility]-[id number] 2Result Comment: [12/21/2017] [id number] Medications aspirin 81 mg oral tablet 1 [...] Weight Start Date: 06/22/19 Status: Ordered Pen [place], 31 G x 5 mm BD Ultra Fine III See Instructions, # 120 each, Refills 2, Tot. 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
--- OUTSIDE RECORDS SUMMARY | 2022-12-22 17:01 | XMS_ITS | Continuity of Care Document ---
Author Name Unknown Organization [facility] Serjio lt Address [address] [place] [address]- Care Team Providers Care Montessori Teacher Name Role Phone Hunter Cortes MD Primary Care Physician Encounter [facility] Date(s): 10/31/19 - 11/10/19 [facility] Adult [address] [place] [address]- [facility] Attending Physician: Nicola Perkins8 Admitting Physician: AdmtrCatracho Referring Physician: Admtr, Ar8 Allergies, Adverse Reactions, [...] vaccine 04/03/15 Given 1Result Comment: [05/03/2018] [facility]-[id number] 2Result Comment: [12/21/2017] [id number] Medications aspirin 81 mg oral tablet 1 [...] 80 UNITS SUBCUTANEOUSLY DAILY, # 15 mL, 1 Refills, 10/13/19 13:11:00 EDT, [facility], 152.1, cm, 06/14/19 10:04:00 EST, Height, 75.8, kg, 06/14/19 10:04:00 EST, Dry Weight Start Date: 10/13/19 Status: Ordered levothyroxine 112 mcg (0.112 mg) [...] Weight Start Date: 09/26/19 Status: Ordered Pen [place], 31 G x 5 mm BD Ultra Fine III See Instructions, # 120 each, Refills 2, Tot. 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
--- OUTSIDE RECORDS SUMMARY | 2022-12-22 17:01 | XMS_ITS | Continuity of Care Document ---
Author Name Unknown Organization [facility] Conor Serjio lt Address [address] [place] [address]- Care Team Providers Care Lumber Straightened Name Role Phone Hunter Cortes MD Primary Care Physician Encounter [facility] Date(s): 06/13/20 - 07/13/20 [facility] Adult [address] [place] [address]- Allergies, Adverse Reactions, Alerts Substance Reaction Severity [...] [facility]-[id number] 2Result Comment: [12/21/2017] [id number] Medications aspirin 81 mg oral tablet 1 [...] mL, 5 Refills, Maintenance, 12/20/19 16:57:00 EDT, [facility], 152.1, cm, 06/14/19 10:04:00 EST, [...] Weight Start Date: 09/26/19 Status: Ordered Pen [place], 31 G x 5 mm BD Ultra Fine III See Instructions, # 120 each, Refills 2, Tot. 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
--- OUTSIDE RECORDS SUMMARY | 2022-12-22 17:01 | XMS_ITS | Continuity of Care Document ---
Author Name Unknown Organization [facility] Serjio lt Address [address] [place] [address]- Care Team Providers Care Gift Manager Name Role Phone Hunter Cortes MD Primary Care Physician [place] [facility] Date(s): 02/07/20 - 03/08/20 [facility] Adult [address] [place] [address]- [facility] Allergies, Adverse Reactions, Alerts Substance Reaction Severity [...] 13-valent vaccine 04/03/15 Given 1Result Comment: [05/03/2018] [facility]-[id number] 2Result Comment: [12/21/2017] [id number] Medications aspirin 81 mg oral tablet 1 [...] Weight Start Date: 09/26/19 Status: Ordered Pen [place], 31 G x 5 mm BD Ultra Fine III See Instructions, # 120 each, Refills 2, Tot. 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
--- OUTSIDE RECORDS SUMMARY | 2022-12-22 17:01 | XMS_ITS | Continuity of Care Document ---
Author Name Unknown Organization [facility] Conor Serjio lt Address [address] [place] [address]- Care Team Providers Care Operater Name Role Phone Bartolo WILSON, Trinh Tenorio Primary Care Physician Encounter [facility] Date(s): 12/30/21 - 01/29/22 [facility] Adult [address] [place] [address]- Attending Physician: Admtr, Ar8 Admitting Physician: Admtr, [...] 13-valent vaccine 04/03/15 Given 1Result Comment: [05/03/2018] [facility]-[id number] 2Result Comment: [12/21/2017] [id number] Medications Anecream Topically, 3 times a day, [...] 28 tablet, 5 Refills, 11/04/21 16:58:00 EDT, [facility], 152.1, cm, 09/25/21 11:31:00 EST, Height [...] 5 Refills, 11/01/21 10:43:00 EDT, [facility], 152.1, cm, 09/25/21 11:31:00 EST, Height Start Date: 11/01/21 Status: Ordered D3 50 mcg (2000 intl units) oral capsule 1 capsule, By Mouth, Daily, # 28 capsule, 1 Refills, [facility], 152.1, cm, 12/02/21 15:27:00 EDT, Height Start Date: 01/21/22 Status: Ordered Diabetic Shoes Diabetic Shoes, See Instructions, # 1 each, Refills 1, Tot. 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 Start Date: 01/08/22 Status: Ordered Lancets [...] 15 mL, 11 Refills, 11/04/21 17:00:00 EDT, [facility], 152.1, cm, 09/25/21 11:31:00 EST, Height [...] 28 tablet, 5 Refills, 11/04/21 16:58:00 EDT, [facility], 152.1, cm, 09/25/21 11:31:00 EST, Height Start [...] Mouth, Daily, # 28 capsule, 0 Refills, [email or web address], 152.1, cm, 12/02/21 15:27:00 EDT, Height Start Date: 01/21/22 Status: Ordered one walker one walker, See [...] PAIN Start Date: 09/24/21 Status: Ordered Pen [place], 31 G x 5 mm BD Ultra Fine III See Instructions, # 120 each, Refills 2, Tot. 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
--- OUTSIDE RECORDS SUMMARY | 2022-12-22 17:01 | XMS_ITS | Continuity of Care Document ---
Author Name Unknown Organization [facility] Address [address] [place] [address]- Care Team Providers Care Turbine Subassembler Name Role Phone Hunter Cortes MD Primary Care Physician En[place] [facility] Date(s): 10/04/20 - 10/05/[address] [address]- Discharge Disposition: A-D/C Home Attending Physician: Soraya Curiel MD Admitting Physician: Soraya Curiel MD Referring Physician: Not on Staff, Referring [...] vaccine 04/03/15 Given 1Result Comment: [05/03/2018] [facility]-[id number] 2Result Comment: [12/21/2017] [id number] Medications Anecream Topically, 3 times a day, [...] 09/14/20 16:08:00EST, Route to Pharmacy Electronically, [facility], 152.1, cm, 08/28/20 9:20:00 EST, Height, [...] Maintenance, Dispense one walkerwith wheels Diagnosis: back pain, 10/05/20 14:09:00 EDT, [facility] one walker with wheels; Diagnosis: back pain, Supply Start Date: 10/05/20 Status: Ordered Pen [place], 31 G x 5 mm BD Ultra Fine III See Instructions, # 120 each, Refills 2, Tot. Refills 2, Maintenance, Use four times a day DM [id number] Office visit needed for further refills, 07/21/18 [...] Refills, Maintenance, 04/03/15 13:16:56, Tablet Start Date: 9/15/15 Status: Ordered Vitamin D3 2000 intl units oral capsule 1 capsule, By Mouth, Daily, # 28 capsule, 11 Refills, Maintenance, 09/14/20 16:08:00 EST, [facility], 152.1, cm, 08/28/20 9:20:00 EST, Height, 75.8, kg, 06/14/19 10:04:00 EST, Dry Weight Start Date: 09/14/20 Status: Ordered Problem List Condition Effective Dates Status Health Status Inform ant Obesity (BMI 30-39.9)(Confirmed) Active Complicated bereavement(Confirmed) 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 [...] 1 2 3 Oxygen Saturation [94-100 %] 94 % (10/05/20 2:35 PM) 94 % (10/05/20 12:36 PM) 95 % (10/05/20 10:32 AM) Pulse Rate [55-90 bpm] 96 bpm *H* (10/05/20 2:35 PM) 101 bpm *H* (10/05/20 12:36 PM) 97 bpm *H* (10/05/20 10:32 AM) Blood Pressure [90-138/55-84 mm Hg] 132/59mm Hg (10/05/20 2:35 PM) 149/60mm Hg *H* (10/05/20 12:36 PM) 123/62mm Hg (10/05/20 10:32 AM) Respiratory Rate [16-30 br/min] 18 br/min (10/05/20 2:35 PM) 20 br/min (10/05/20 12:36 PM) 18 br/min (10/05/20 10:32 AM) Temperature [96.8-100.4 DegF] 98.1 DegF (10/05/20 8:10 AM) 98.1 DegF (10/05/20 1:58 AM) 98.2 DegF (10/04/20 8:18 PM) Mode of Delivery (Oxygen) Room air (10/05/20 2:35 PM) Room air (10/05/20 12:36 PM) Room air (10/05/20 10:32 AM) Blood pressure sites Arm, left (10/05/20 2:35 PM) Arm, left (10/05/20 12:36 PM) Arm, left (10/05/20 10:32 AM) Temperature Route Oral (10/05/20 8:10 AM) Oral (10/05/20 1:58 AM) Oral (10/04/20 8:18 PM) Social History Social History Type Response Smoking Status Former smoker entered on: 09/14/17 Sex
--- OUTSIDE RECORDS SUMMARY | 2022-12-22 17:01 | XMS_ITS | Continuity of Care Document ---
Author Name Unknown Organization [facility] Conor Serjio lt Address [address] [place] [address]- Care Team Providers Care Diet Supervisor Name Role Phone Bartolo WILSON, Trinh Tenorio Primary Care Physician [place] [facility] [place] [id number] Date(s): 09/13/21 - 09/20/21 [facility] Adult [address] [place] [address]- Encounter Diagnosis Right sided abdominal pain(Discharge Diagnosis) - 09/13/21 Attending Physician: Trinh Mcfarland NP Allergies, Adverse Reactions, Alerts Substance Reaction Severity [...] vaccine 04/03/15 Given 1Result Comment: [05/03/2018] [facility]-[id number] 2Result Comment: [12/21/2017] [id number] Medications Anecream Topically, 3 times a day, [...] DAILY, # 56 tablet, 5 Refills, [facility], 152.1, cm, 08/28/20 [...] 19 units, 201-250: 21units, # 5 each, 2 Refills, Maintenance, 05/21/21 11:02:00 EDT, [facility], 251-300: 23 units, 301-350: 25 units, 351-400: 27 units, > 400... Start Date: 05/21/21 Status: Ordered Lancets for [employer] Code [...] Daily, # 28 tablet, 5 [facility], cm, 08/28/20 9:20:00 EST, [...] Daily, # 28 capsule, 2 Refills, [facility], 152.1, cm, 08/28/20 9:20:00 EST, Height Start Date: 07/19/21 Status: Ordered one walker one walker, See Instructions, # 1 each, Refills 0, Tot. Refills 0, Maintenance, Dispense one walkerwith wheels Diagnosis: back pain Please deliver, 10/10/20 10:24:00 EDT, Dispense one walker with wheels; Diagnosis: back pain; Please deliver, Supply... Start Date: 10/10/20 Status: Ordered Pen [place], 31 G x 5 mm BD Ultra Fine III See Instructions, # 120 each, Refills 2, Tot. Refills 2, Maintenance, Use four times a day DM [id number] Office visit needed for further refills, 07/21/18 [...] DAILY, # 28 capsule, 5 Refills, [facility], 152.1, cm, 08/28/20 9:20:00 EST, Height Start Date: 08/16/21 Status: Ordered Problem List Condition Effective Dates Status Health Status Inform ant Obesity (BMI 30-39.9)(Confirmed) Active Complicated bereavement(Confirmed) Active shelter current use of ins ulin [...] Dates Health Status Cl inical Service Informant Right sided abdominal pain Discharge Diagnosis 09/13/21 Vital Signs Most recent to oldest [Reference Range]: 1 Height 152.1 cm (09/13/21 9:55 AM) Social History Social History Type Response Smoking Status Former smoker entered on: 09/14/17 Sex
--- OUTSIDE RECORDS SUMMARY | 2022-12-22 17:01 | XMS_ITS | Continuity of Care Document ---
Author Name Unknown Organization [facility] Conor Serjio lt Address [address] [place] [address]- Care Team Providers Care Testing Tech Name Role Phone Hunter Cortes MD Primary Care Physician Encounter [facility] Date(s): 06/27/20 - 07/27/20 [facility] Adult [address] [place] [address]- Attending Physician: AdmtrCatracho Admitting Physician: Admtr, Ar8 [...] 13-valent vaccine 04/03/15 Given 1Result Comment: [05/03/2018] [facility]-[id number] 2Result Comment: [12/21/2017] [id number] Medications Anecream Topically, 3 times a day, [...] Weight Start Date: 09/26/19 Status: Ordered Pen [place], 31 G x 5 mm BD Ultra Fine III See Instructions, # 120 each, Refills 2, Tot. Refills 2, Maintenance, Use four times a day DM [id number] Office visit needed for further refills, 07/21/18 [...] Obesity (BMI 30-39.9)(Confirmed) Active Complicated bereavement(Confirmed) Active [facility] current use [...]
--- OUTSIDE RECORDS SUMMARY | 2022-12-22 17:01 | XMS_ITS | Continuity of Care Document ---
Author Name Unknown Organization [facility] Address [address] [place] [address]- Care Team Providers Care Comparator Operator Name Role Phone Hunter Cortes MD Primary Care Physician Encounter [facility] [place] Date(s): 09/20/19 - 03/02/[address] [facility] [place] [address] [place] [address]- [facility] Discharge Disposition: A-D/C Home Attending Physician: Corazon Howard MD Admitting Physician: Corazon Howard MD Referring Physician: Hunter Cortes MD Allergies, Adverse Reactions, [...] 04/03/15 Given 1Result Comment: [05/03/2018] [facility]-[id number] 2Result Comment: [12/21/2017] [id number] Medications aspirin 81 mg oral tablet 1 [...] Weight Start Date: 09/26/19 Status: Ordered Pen [place], 31 G x 5 mm BD Ultra Fine III See Instructions, # 120 each, Refills 2, Tot. 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
--- OUTSIDE RECORDS SUMMARY | 2022-12-22 17:01 | XMS_ITS | Continuity of Care Document ---
Author Name Unknown Organization [facility] Conor Serjio lt Address [address] [place] [address]- Care Team Providers Care Obstetrician Gynecologist Name Role Phone Hunter Cortes MD Primary Care Physician Encounter [facility] [place] Date(s): 05/18/20 - 05/25/20 [facility] [address] [place] [address]- Encounter Diagnosis Headache(Discharge Diagnosis) - 05/19/20 Falls(Discharge Diagnosis) - 05/19/20 Attending Physician: Not on Staff, Attending MD Allergies, Adverse Reactions, Alerts Substance Reaction [...] 1Result Comment: [05/03/2018] [facility]-[id number] 2Result Comment: [12/21/2017] [id number] Medications aspirin 81 mg oral tablet 1 tablet = 81 mg, By Mouth, Daily, # 30 tablet, 0 Refills, Maintenance, 04/03/15 13:17:10, Tablet Start Date: 04/03/15 Status: Ordered atorvastatin 10 mg oral tablet 1 tablet = 10 mg, By Mouth, Daily, # 30 tablet, 5 Refills, Maintenance, 04/27/20 15:53:00 EDT, Tablet, [facility], 152.1, cm, 04/27/20 10:07:00 EDT, [...] Dry Weight Start Date: 12/01/19 Status: Ordered lidocaine 4% topical cream 1 application, Topically, 2 times a day, # 5 Gm, 1 Refills, Acute 06/18/20 13:41:00 EST, 05/18/20 13:40:00 EDT, Cream, [facility], 1 application Topically 2 times a day, 152.1, cm, 05/18/20 12:57:00 EDT, Height, 75.8, kg, 06/14/19 10:04:00... Start Date: 05/18/20 Stop Date: 06/18/20 Status: Ordered lisinopril 40 mg oral tablet [...] Weight Start Date: 09/26/19 Status: Ordered Pen [place], 31 G x 5 mm BD Ultra Fine III See Instructions, # 120 each, Refills 2, Tot. 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 [...] Dates Health Status Clini anibal Service Informant Headache Discharge Diagnosis 05/19/20 Falls Discharge Diagnosis 05/19/20 Vital Signs Most recent to oldest [Reference Range]: 1 2 Height 152.1 cm (05/18/20 1:30 PM) 152.1 cm (05/18/20 12:57 PM) Weight 78.4 kg (05/18/20 12:57 PM) Oxygen Saturation [94-100 %] 98 % (05/18/20 12:57 PM) Pulse Rate [55-90 bpm] 90 bpm (05/18/20 12:57 PM) Body Mass Index [18.5-24.99] 33.89 *>HHI* (05/18/20 12:57 PM) Blood Pressure [90-138/55-84 mm Hg] 144/ 64mm Hg *H* (05/18/20 1:30 PM) 144/60mm Hg *H* (05/18/20 12:57 PM) Respiratory Rate [16-30 br/min] 18 br/mi n (05/18/20 12:57 PM) Temperature [96.8-100.4 DegF] 98.7 DegF (05/18/20 12:57 PM) Mode of Delivery (Oxygen) Room air (05/18/20 12:57 PM) Blood pressure sites Arm, right (05/18/20 1:30 PM) Arm, right (05/18/20 12:57 PM) Temperature Route Oral (05/18/20 12:57 PM) Weight Obtained Via Standing scale (05/18/20 12:57 PM) Social History Social History Type Response Smoking Status Former smoker entered on: 09/14/17 Sex
--- OUTSIDE RECORDS SUMMARY | 2022-12-22 17:01 | XMS_ITS | Continuity of Care Document ---
Author Name Unknown Organization [facility] Serjio lt Address [address] [place] [address]- Care Team Providers Care Skiver Blockers Name Role Phone Hunter Cortes MD Primary Care Physician [phone] Encounter [facility] [place] Date(s): 08/08/20 - 09/07/20 [facility] Adult [address] [place] [address]- Allergies, Adverse Reactions, Alerts Substance Reaction Severity [...] Given 1Result Comment: [05/03/2018] [facility]-[id number] 2Result Comment: [12/21/2017] [id number] Medications Anecream Topically, 3 times a day, [...] kg, 06/14/19 10:04:00 EST, DryWeight Start Date: 2/6/21 Status: Ordered Pen [place], 31 G x 5 mm BD Ultra Fine III See Instructions, # 120 each, Refills 2, Tot. Refills 2, Maintenance, Use four times a day DM [id number] Office visit needed for further refills, 07/21/18 [...]
--- OUTSIDE RECORDS SUMMARY | 2022-12-22 17:01 | XMS_ITS | Continuity of Care Document ---
Author Name Unknown Organization [facility] Serjio lt Address [address] [place] [address]- Care Team Providers Care Tso Name Role Phone Bartolo WILSON, Trinh Tenorio Primary Care Physician [place] [facility] [place] 01/29/22 [facility] Adult [address] [place] [address]- Allergies, Adverse Reactions, Alerts Substance Reaction Severity [...] 04/03/15 Given 1Result Comment: [05/03/2018] [facility]-[id number] 2Result Comment: [12/21/2017] [id number] Medications Anecream Topically, 3 times a day, [...] 28 tablet, 5 Refills, 11/04/21 16:58:00 EDT, [facility], 152.1, cm, 09/25/21 11:31:00 EST, [...] 5 Refills, 11/01/21 10:43:00 EDT, [facility], 152.1, cm, 09/25/21 11:31:00 EST, Height Start Date: 11/01/21 Status: Ordered D3 50 mcg (2000 intl units) oral capsule 1 capsule, By Mouth, Daily, # 28 capsule, 1 Refills, [facility], 152.1, cm, 12/02/21 15:27:00 EDT, Height Start Date: 01/21/22 Status: Ordered Diabetic Shoes Diabetic Shoes, See Instructions, # 1 each, Refills 1, Tot. 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 Start Date: 01/08/22 Status: Ordered Lancets [...] 15 mL, 11 Refills, 11/04/21 17:00:00 EDT, [facility], 152.1, cm, 09/25/21 11:31:00 EST, Height Start Date: 11/04/21 Status: Ordered levothyroxine 0.112 mg oral tablet 1 tablet, By Mouth, Daily, # 28 tablet, 5 Refills, Maintenance, 09/13/21 14:22:00 EST, [facility], 152.1, cm, 09/13/21 9:55:00 EST, Height Start Date: 09/13/21 Status: Ordered Ysameen Sensors 14 day (dispense 2 monthly) Yasmeen [...] 28 tablet, 5 Refills, 11/04/21 16:58:00 EDT, [facility], 152.1, cm, 09/25/21 11:31:00 EST, [...] Mouth, Daily, # 28 capsule, 0 Refills, [facility], 152.1, cm, 12/02/21 15:27:00 EDT, Height [...] PAIN Start Date: 09/24/21 Status: Ordered Pen [place], 31 G x 5 mm BD Ultra Fine III See Instructions, # 120 each, Refills 2, Tot. 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
--- OUTSIDE RECORDS SUMMARY | 2022-12-22 17:01 | XMS_ITS | Continuity of Care Document ---
Author Name Unknown Organization [facility] Serjio lt Address [address] [place] [address]- Care Team Providers Care Printing Specialist Name Role Phone Hunter Cortes MD Primary Care Physician [phone] Encounter [facility] Date(s): 10/05/20 - 11/04/20 [facility] Adult [address] [place] [address]- Allergies, Adverse Reactions, Alerts Substance Reaction Severity [...] 13-valent vaccine 04/03/15 Given 1Result Comment: [05/03/2018] [facility]-[id number] 2Result Comment: [12/21/2017] [id number] Medications Anecream Topically, 3 times a day, [...] 5 Refills, Maintenance, 06/22/20 11:53:00 EST, Tablet, [facility], 152.1, cm, 05/28/20 7:41:00 EST, [...] Supply... Start Date: 10/10/20 Status: Ordered Pen [place], 31 G x 5 mm BD Ultra Fine III See Instructions, # 120 each, Refills 2, Tot. 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
--- OUTSIDE RECORDS SUMMARY | 2022-12-22 17:01 | XMS_ITS | Continuity of Care Document ---
Author Name Unknown Organization [facility] Serjio lt Address [address] [place] [address]- Care Team Providers Care Propeller Mechanic Name Role Phone Bartolo WILSON, Trinh Tenorio Primary Care Physician [place] [facility] [place] 12/26/21 - 01/25/22 [facility] Adult [address] [place] [address]- Allergies, Adverse Reactions, Alerts Substance Reaction Severity [...] 1Result Comment: [05/03/2018] [facility]-[id number] 2Result Comment: [12/21/2017] 72228-013-82 Medications Anecream Topically, 3 times a day, [...] 28 tablet, 5 Refills, 11/04/21 16:58:00 EDT, [facility], 152.1, cm, 09/25/21 11:31:00 [...] 5 Refills, 11/01/21 10:43:00 EDT, [facility], 152.1, cm, 09/25/21 11:31:00 EST, Height Start Date: 11/01/21 Status: Ordered D3 50 mcg (2000 intl units) oral capsule 1 capsule, By Mouth, Daily, # 28 capsule, 1 Refills, [facility], 152.1, cm, 12/02/21 15:27:00 EDT, Height Start Date: 01/21/22 Status: Ordered Diabetic Shoes Diabetic Shoes, See Instructions, # 1 each, Refills 1, Tot. 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 Start Date: 01/08/22 Status: Ordered Lancets [...] 15 mL, 11 Refills, 11/04/21 17:00:00 EDT, [facility], 152.1, cm, 09/25/21 11:31:00 EST, Height [...] 28 tablet, 5 Refills, 11/04/21 16:58:00 EDT, [facility], 152.1, cm, 09/25/21 11:31:00 [...] Mouth, Daily, # 28 capsule, 0 Refills, [facility], 152.1, cm, 12/02/21 15:27:00 EDT, [...] PAIN Start Date: 09/24/21 Status: Ordered Pen [place], 31 G x 5 mm BD Ultra Fine III See Instructions, # 120 each, Refills 2, Tot. Refills 2, Maintenance, Use four times a day DM [id number] Office visit needed for further refills, 07/21/18 [...] Obesity (BMI 30-39.9)(Confirmed) Active Complicated bereavement(Confirmed) Active group home current use of ins ulin - checks [...]
--- OUTSIDE RECORDS SUMMARY | 2022-12-22 17:01 | XMS_ITS | Continuity of Care Document ---
Author Name Unknown Organization [facility] Conor Serjio lt Address [address] [place] [address]- Care Team Providers Care Public Works Director Name Role Phone Trinh Mcfarland NP Primary Care Physician En[place] [facility] [place] ACCT R [id number] Date(s): 09/24/21 - 10/01/21 [facility] Adult [address] [place] [address]- Attending Physician: Not on Staff, Attending MD Referring Physician: Trinh Mcfarland NP Allergies, Adverse Reactions, [...] vaccine 04/03/15 Given 1Result Comment: [05/03/2018] [facility]-[id number] 2Result Comment: [12/21/2017] 24292-361-62 Medications Anecream Topically, 3 times a day, [...] DAILY, # 56 tablet, 5 Refills, [facility], 152.1, cm, 08/28/20 9:20:00 EST, Height Start [...] Required Details, Route to Pharmacy Electronically, [facility], 152.1, cm, 08/28/20 9:20:00 EST, Height Start [...] EVENING, # 15 mL, 0 Refills, [facility], 152.1, cm, 09/13/21 9:55:00 EST, Height Start [...] Daily, # 28 tablet, 5 [facility]ills[facility], 152.1, cm, 08/28/20 9:20:00 EST, Height, [...] Daily, # 28 capsule, 2 Refills, [facility], 152.1, cm, 08/28/20 9:20:00 EST, Height Start [...] PAIN Start Date: 09/24/21 Status: Ordered Pen [place], 31 G x 5 mm BD Ultra Fine III See Instructions, # 120 each, Refills 2, Tot. 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
--- OUTSIDE RECORDS SUMMARY | 2022-12-22 17:01 | XMS_ITS | Continuity of Care Document ---
Author Name Unknown Organization [facility] Serjio lt Address [address] [place] [address]- Care Team Providers Care Honey Grader And Blender Name Role Phone Hunter Cortes MD Primary Care Physician Encounter [facility] [place] Date(s): 10/12/20 - 11/11/20 [facility] Adult [address] [place] [address]- Allergies, Adverse Reactions, Alerts Substance Reaction Severity [...] vaccine 04/03/15 Given 1Result Comment: [05/03/2018] [facility]-[id number] 2Result Comment: [12/21/2017] 11977-172-88 Medications Anecream Topically, 3 times a day, [...] Supply... Start Date: 10/10/20 Status: Ordered Pen [place], 31 G x 5 mm BD Ultra Fine III See Instructions, # 120 each, Refills 2, Tot. 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
--- OUTSIDE RECORDS SUMMARY | 2022-12-22 17:01 | XMS_ITS | Continuity of Care Document ---
Author Name Unknown Organization [facility] Conor Serjio lt Address [address] [place] [address]- Care Team Providers Care Records Supervisor Name Role Phone Hunter Cortes MD Primary Care Physician [phone] Encounter [facility] [place] Date(s): 01/25/20 - 03/15/20 [facility] Adult [address] [place] [address]- [facility] Attending Physician: Hunter Cortes MD Allergies, [...] 13-valent vaccine 04/03/15 Given 1Result Comment: [05/03/2018] [facility]-[id number] 2Result Comment: [12/21/2017] 25367-667-22 Medications aspirin 81 mg oral tablet 1 [...] Weight Start Date: 09/26/19 Status: Ordered Pen [place], 31 G x 5 mm BD Ultra Fine III See Instructions, # 120 each, Refills 2, Tot. Refills 2, Maintenance, Use four times a day DM [id number] Office visit needed for further refills, 07/21/18 [...] Status Inform ant Obesity (BMI 30-39.9)(Confirmed) Active long-term current use of ins ulin - checks [...]
--- OUTSIDE RECORDS SUMMARY | 2022-12-22 17:01 | XMS_ITS | Continuity of Care Document ---
Author Name Unknown Organization [facility] Serjio lt Address [address] [place] [address]- Care Team Providers Care Steel Plate Printer Name Role Phone Georgie FREEMAN, Ezequiel Chino Primary Care Physician [place] [facility] [place] 06/[place]/22 - 07/30/22 [facility] Adult [address] [place] [address]- Allergies, Adverse Reactions, Alerts Substance Reaction Severity [...] vaccine 04/03/15 Given 1Result Comment: [05/03/2018] [facility]-[id number] 2Result Comment: [12/21/2017] [id number] Medications Anecream Topically, 3 times a day, [...] tablet, 1 Refills, Maintenance, 07/25/22 16:06:00 EST, [facility], 152.1, cm, 05/08/22 11:14:00 EDT, Height Start Date: 07/25/22 Status: Ordered atorvastatin 10 mg oral tablet 1 tablet, By Mouth, Daily, # 28 tablet, 2 Refills, Maintenance, 03/18/22 21:26:00 EDT, [facility], 152.1, cm, 02/03/22 10:10:00 EDT, Height [...] tablet, 4 Refills, Maintenance, 05/18/22 15:34:00 EDT, [facility], 152.1, cm, 05/08/22 11:14:00 EDT, Height Start Date: 05/18/22 Status: Ordered Diabetic Shoes Diabetic Shoes, See Instructions, # 1 each, Refills 1, Tot. 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 Start Date: 01/08/22 Status: Ordered Lancets [...] # 8each, 5 Refills, 05/28/22 13:24:00 EST, [facility], 152.1, cm, 05/08/22 11:14:00 EDT, Height Start Date: 05/28/22 Status: Ordered levothyroxine 0.112 mg oral tablet 1 tablet, By Mouth, Daily, # 28 tablet, 1 Refills, Maintenance, 05/18/22 15:34:00 EDT, [facility], 152.1, cm, 05/08/22 11:14:00 EDT, Height [...] tablet, 4 Refills, Maintenance, 04/11/22 11:27:00 EDT, [facility], 152.1, cm, 02/03/22 10:10:00 EDT, Height Start Date: 04/11/22 Status: Ordered metFORMIN 500 mg oral tablet, extended release 2 tablet = 1,000 mg, By Mouth, Daily, # 60 tablet, 11 Refills, Maintenance, 05/30/22 6:18:00 EST, [facility], Partial fill upon patient request if the prescription is for a schedule II opioiddrug., 152.1, cm, 05/08/22 11:14:00 EDT, Height Start Date: 05/30/22 Status: Ordered Ocuvite Lutein By Mouth, Daily, 0 Refills, Maintenance, 04/03/15 13:16:39 Start Date: 04/03/15 Status: Ordered omeprazole 20 mg oral enteric coated capsule 1 capsule, By Mouth, Daily, R1., # 28 capsule, 5 Refills, Maintenance, 07/28/22 12:14:00 EST, [facility], 152.1, cm, 05/08/22 11:14:00 EDT, Height [...] PAIN Start Date: 09/24/21 Status: Ordered Pen [place], 31 G x 5 mm BD Ultra Fine III See Instructions, # 120 each, Refills 2, Tot. Refills 2, Maintenance, Use four times a day DM [id number] Office visit needed for further refills, 07/21/18 [...] Date: 07/04/22 Status: Ordered UNIFINE PNTP MIS [id number] UNIFINE PNTP MIS [id number], See Instructions, # 100 each, 1 Refills, Maintenance, DIRECTED FOUR TIMES DAILY, 05/10/22 10:46:00 EDT, 152.1, cm, 05/08/22 11:14:00 EDT, Height Start Date: 05/10/22 Status: Ordered UNIFINE PNTP MIS [id number] UNIFINE PNTP MIS [id number], See Instructions, # 100 each, 2 Refills, [...] capsule, 2 Refills, Maintenance, 07/02/22 14:28:00 EST, [facility], 152.1, cm, 05/08/22 11:14:00 EDT, Height Start Date: 07/02/22 Status: Ordered Problem List Condition Confirmation Course Effective Dates Status H ealth Status Informant Obesity (BMI 30-39.9) Confirmed Active Complicated bereavement 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
--- OUTSIDE RECORDS SUMMARY | 2022-12-22 17:01 | XMS_ITS | Continuity of Care Document ---
Author Name Unknown Organization [facility] Serjio lt Address [address] [place] [address]- Care Team Providers Care Supervisor Asbestos Textile Name Role Phone Bartolo WILSON, Trinh Tenorio Primary Care Physician [place] [facility] [facility] [place] 02[place]10/22 [facility] Adult [address] [place] [address]- Attending Physician: Georgie FREEMAN, Ezequiel Chino Allergies, [...] vaccine 04/03/15 Given 1Result Comment: [05/03/2018] [facility]-[id number] 2Result Comment: [12/21/2017] [id number] Medications Anecream Topically, 3 times a day, [...] 28 tablet, 5 Refills, 11/04/21 16:58:00 EDT, [facility], 152.1, cm, 09/25/21 11:31:00 EST, [...] Mouth, Daily, # 28 capsule, 1 Refills, [facility], 152.1, cm, 12/02/21 15:27:00 EDT, Height Start Date: 01/21/22 Status: Ordered Diabetic Shoes Diabetic Shoes, See Instructions, # 1 each, Refills 1, Tot. 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 Start Date: 01/08/22 Status: Ordered Lancets [...] 15 mL, 11 Refills, 11/04/21 17:00:00 EDT, [facility], 152.1, cm, 09/25/21 11:31:00 EST, [...] 28 tablet, 5 Refills, 11/04/21 16:58:00 EDT, [facility], 152.1, cm, 09/25/21 11:31:00 EST, Height [...] Mouth, Daily, # 28 capsule, 0 Refills, [facility], 152.1, cm, 12/02/21 15:27:00 EDT, Height [...] PAIN Start Date: 09/24/21 Status: Ordered Pen [place], 31 G x 5 mm BD Ultra Fine III See Instructions, # 120 each, Refills 2, Tot. Refills 2, Maintenance, Use four times a day DM [id number] Office visit needed for further refills, 07/21/18 [...] Obesity (BMI 30-39.9)(Confirmed) Active Complicated bereavement(Confirmed) Active residential current use of ins ulin - checks [...] [Reference Range]: 1 2 Height 152.1 cm (02/03/22 10:10 AM) 152.1 cm (02/03/22 10:05 AM) Weight 73.0 kg (02/03/22 10:05 AM) Oxygen Saturation [94-100 %] 96 % (02/03/22 10:05 AM) Pulse Rate [55-90 bpm] 94 bpm *H* (02/03/22 10:05 AM) Body Mass Index [18.5-24.99] 31.55 *>HHI* (02/03/22 10:05 AM) Blood Pressure [90-138/55-84 mm Hg] 136/ 84mm Hg (02/03/22 10:10 AM) 169/92mm Hg *H* (02/03/22 10:05 AM) Temperature [96.8-100.4 DegF] 98.1 DegF (02/03/22 10:05 AM) Mode of Delivery (Oxygen) Room air (02/03/22 10:05 AM) Blood pressure sites Arm, left (02/03/22 10:10 AM) Arm, left (02/03/22 10:05 AM) Temperature Route Oral (02/03/22 10:05 AM) Social History Social History Type Response Smoking Status Former smoker entered on: 09/14/17 Sex
--- OUTSIDE RECORDS SUMMARY | 2022-12-22 17:01 | XMS_ITS | Continuity of Care Document ---
Author Name Unknown Organization [facility] Serjio lt Address [address] [place] [address]- Care Team Providers Care Administration Manager Name Role Phone Bartolo WILSON, Trinh Tenorio Primary Care Physician Encounter [facility] Date(s): 11/01/21 - 12/01/21 [facility] Adult [address] [place] [address]- Allergies, Adverse Reactions, Alerts Substance Reaction Severity [...] 13-valent vaccine 04/03/15 Given 1Result Comment: [05/03/2018] [facility]-[id number] 2Result Comment: [12/21/2017] [id number] Medications Anecream Topically, 3 times a day, [...] 28 tablet, 5 Refills, 11/04/21 16:58:00 EDT, [facility], 152.1, cm, 09/25/21 11:31:00 [...] 5 Refills, 11/01/21 10:43:00 EDT, [facility], 152.1, cm, 09/25/21 11:31:00 EST, Height Start Date: 11/01/21 Status: Ordered Diabetic Shoes Diabetic Shoes, See Instructions, # 1 each, Refills 1, Tot. 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, 152.1, cm, 09/25/21 11:31:00 EST, Height Start Date: 11/01/21 Status: Ordered furosemide 40 mg oral tablet 1, tablet, By Mouth, Daily, # 28 tablet, Refills 5, Route to Pharmacy Electronically, [facility], 152.1, cm, 09/25/21 11:31:00 EST, Height [...] 15 mL, 11 Refills, 11/04/21 17:00:00 EDT, [facility], 152.1, cm, 09/25/21 11:31:00 EST, [...] Maintenance, IDDM E11.9, 12/01/19 10:39:00 EDT, [facility], 152.1, cm, 06/14/19 10:04:00 EST, Height, 75.8, [...] 28 tablet, 5 Refills, 11/04/21 16:58:00 EDT, [facility], 152.1, cm, 09/25/21 11:31:00 EST, [...] PAIN Start Date: 09/24/21 Status: Ordered Pen [place], 31 G x 5 mm BD Ultra Fine III See Instructions, # 120 each, Refills 2, Tot. Refills 2, Maintenance, Use four times a day DM [id number] Office visit needed for further refills, 07/21/18 [...] DAILY, # 28 capsule, 5 Refills, 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
--- OUTSIDE RECORDS SUMMARY | 2022-12-22 17:01 | XMS_ITS | Continuity of Care Document ---
Author Name Unknown Organization [facility] Serjio lt Address [address] [place] [address]- Care Team Providers Care Supervisor Mill Name Role Phone Bartolo WILSON, Trinh Tenorio Primary Care Physician [phone] [place] [facility] [id number] Date(s): 12/02/21 - 12/09/21 [facility] Adult [address] [place] [address]- Attending Physician: Georgie FREEMAN, Ezequiel Chino Allergies, [...] 04/03/15 Given 1Result Comment: [05/03/2018] [facility]-[id number] 2Result Comment: [12/21/2017] [id number] Medications Anecream Topically, 3 times a day, [...] 28 tablet, 5 Refills, 11/04/21 16:58:00 EDT, [facility], 152.1, cm, 09/25/21 11:31:00 EST, Height Start [...] 15 mL, 11 Refills, 11/04/21 17:00:00 EDT, [facility], 152.1, cm, 09/25/21 11:31:00 EST, [...] 5, Maintenance, IDDM E11.9, 12/01/19 10:39:00 EDT, [facility], 152.1, cm, 06/14/19 10:04:00 EST, Height, 75.8, [...] 28 tablet, 5 Refills, 11/04/21 16:58:00 EDT, [facility], 152.1, cm, 09/25/21 11:31:00 EST, Height Start [...] PAIN Start Date: 09/24/21 Status: Ordered Pen [place], 31 G x 5 mm BD Ultra Fine III See Instructions, # 120 each, Refills 2, Tot. 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 - [...] oldest [Reference Range]: 1 Height 152.1 cm (12/02/21 3:27 PM) Oxygen Saturation [94-100 %] 96 % (12/02/21 3:27 PM) Pulse Rate [55-90 bpm] 92 bpm *H* (12/02/21 3:27 PM) Blood Pressure [90-138/55-84 mm Hg] 116/ 68mm Hg (12/02/21 3:27 PM) Temperature [96.8-100.4 DegF] 98.7 DegF (12/02/21 3:27 PM) Mode of Delivery (Oxygen) Room air (12/02/21 3:27 PM) Blood pressure sites Arm, right (12/02/21 3:27 PM) Temperature Route Oral (12/02/21 3:27 PM) Weight Obtained Via Standing scale (12/02/21 3:27 PM) Social History Social History Type Response Smoking Status Former smoker entered on: 09/14/17 Sex
--- OUTSIDE RECORDS SUMMARY | 2022-12-22 17:01 | XMS_ITS | Continuity of Care Document ---
Author Name Unknown Organization [facility] Serjio lt Address [address] [place] [address]- Care Team Providers Care Gold Leaf Laborer Name Role Phone Georgie FREEMAN, Ezequiel Chino Primary Care Physician Encounter [facility] Date(s): 07/25/22 - 08/24/22 [facility] Adult [address] [place] [address]- Allergies, Adverse Reactions, Alerts Substance Reaction Severity [...] Given 1Result Comment: [05/03/2018] [facility]-[id number] 2Result Comment: [12/21/2017] [id number] Medications Anecream Topically, 3 times a day, [...] tablet, 1 Refills, Maintenance, 07/25/22 16:06:00 EST, [facility], 152.1, cm, 05/08/22 11:14:00 EDT, Height Start Date: 07/25/22 Status: Ordered atorvastatin 10 mg oral tablet 1 tablet, By Mouth, Daily, # 28 tablet, 2 Refills, Maintenance, 03/18/22 21:26:00 EDT, [facility], 152.1, cm, 02/03/22 10:10:00 EDT, Height [...] tablet, 4 Refills, Maintenance, 05/18/22 15:34:00 EDT, [facility], 152.1, cm, 05/08/22 11:14:00 EDT, Height Start Date: 05/18/22 Status: Ordered Diabetic Shoes Diabetic Shoes, See Instructions, # 1 each, Refills 1, Tot. 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 Refills 5, Maintenance, 08/21/22 16:13:00 EST, Route to Pharmacy Electronically, [facility], 152.1, cm, 05/08/22 11:14:00 EDT, Height [...] 15 mL, 5 Refills, 01/08/22 14:09:00 EDT, [facility]... Start Date: 01/08/22 Status: Ordered Lancets [...] # 8each, 5 Refills, 05/28/22 13:24:00 EST, [facility], 152.1, cm, 05/08/22 11:14:00 EDT, Height Start Date: 05/28/22 Status: Ordered levothyroxine 0.112 mg oral tablet 1 tablet, By Mouth, Daily, # 28 tablet, 1 Refills, Maintenance, 05/18/22 15:34:00 EDT, [facility], 152.1, cm, 05/08/22 11:14:00 EDT, Height [...] tablet, 5 Refills, Maintenance, 08/21/22 13:11:00 EST, [facility], 152.1, cm, 05/08/22 11:14:00 EDT, Height Start Date: 08/21/22 Status: Ordered metFORMIN 500 mg oral tablet, extended release 2 tablet = 1,000 mg, By Mouth, Daily, # 60 tablet, 11 Refills, Maintenance, 05/30/22 6:18:00 EST, [facility], Partial fill upon patient request if the prescription is for a schedule II opioiddrug., 152.1, cm, 05/08/22 11:14:00 EDT, Height Start Date: 05/30/22 Status: Ordered Ocuvite Lutein By Mouth, Daily, 0 Refills, Maintenance, 04/03/15 13:16:39 Start Date: 04/03/15 Status: Ordered omeprazole 20 mg oral enteric coated capsule 1 capsule, By Mouth, Daily, R1., # 28 capsule, 5 Refills, Maintenance, 07/28/22 12:14:00 EST, [facility], 152.1, cm, 05/08/22 11:14:00 EDT, Height [...] PAIN Start Date: 09/24/21 Status: Ordered Pen [place], 31 G x 5 mm BD Ultra Fine III See Instructions, # 120 each, Refills 2, Tot. Refills 2, Maintenance, Use four times a day DM [id number] Office visit needed for further refills, 07/21/18 [...] Date: 08/21/22 Status: Ordered UNIFINE PNTP MIS [id number] UNIFINE PNTP MIS [id number], See Instructions, # 100 each, 1 Refills, Maintenance, DIRECTED FOUR TIMES DAILY, 05/10/22 10:46:00 EDT, 152.1, cm, 05/08/22 11:14:00 EDT, Height Start Date: 05/10/22 Status: Ordered UNIFINE PNTP MIS [id number] UNIFINE PNTP MIS [id number], See Instructions, # 100 each, 2 Refills, [...] capsule, 2 Refills, Maintenance, 07/02/22 14:28:00 EST, [facility], 152.1, cm, 05/08/22 11:14:00 EDT, Height Start Date: 07/02/22 Status: Ordered Problem List Condition Confirmation Course Effective Dates Status H ealth Status Informant Obesity (BMI 30-39.9) Confirmed Active 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
--- OUTSIDE RECORDS SUMMARY | 2022-12-22 17:01 | XMS_ITS | Continuity of Care Document ---
Author Name Unknown Organization [facility] Serjio lt Address [address] [place] [address]- Care Team Providers Care Quilting Supervisor Name Role Phone Bartolo WILSON, Trinh Tenorio Primary Care Physician [phone] [place] [facility] [place]13[place]21 [place] 12/13/21 [facility] Adult [address] [place] [address]- Allergies, Adverse Reactions, Alerts Substance Reaction Severity [...] 13-valent vaccine 04/03/15 Given 1Result Comment: [05/03/2018] [facility]-[id number] 2Result Comment: [12/21/2017] 60530-793-03 Medications Anecream Topically, 3 times a day, [...] 28 tablet, 5 Refills, 11/04/21 16:58:00 EDT, [facility], 152.1, cm, 09/25/21 11:31:00 EST, [...] DAILY PLEASE SCHEDULE PHYSICAL WITH TRINH ESQUIVEL RETAIL SEASONAL SPECIALIST, #56 tablet, 5 Refills, 11/01/21 10:43:00 EDT, [facility], 152.1, cm, 09/25/21 11:31:00 EST, Height [...] Refills 5, Route to Pharmacy Electronically, [facility], 152.1, cm, 09/25/21 11:31:00 EST, Height Start [...] 15 mL, 11 Refills, 11/04/21 17:00:00 EDT, [facility], 152.1, cm, 09/25/21 11:31:00 EST, Height Start [...] 5, Maintenance, IDDM E11.9, 12/01/19 10:39:00 EDT, [facility], 152.1, cm, 06/14/19 10:04:00 EST, Height, [...] 28 tablet, 5 Refills, 11/04/21 16:58:00 EDT, [facility], 152.1, cm, 09/25/21 11:31:00 EST, Height Start [...] PAIN Start Date: 09/24/21 Status: Ordered Pen [place], 31 G x 5 mm BD Ultra Fine III See Instructions, # 120 each, Refills 2, Tot. 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
--- OUTSIDE RECORDS SUMMARY | 2022-12-22 17:01 | XMS_ITS | Continuity of Care Document ---
Author Name Unknown Organization [facility] Serjio lt Address [address] [place] [address]- Care Team Providers Care Box Spring Upholsterer Name Role Phone Hunter Cortes MD Primary Care Physician [place] [facility] [place]28/20 - 09/04/20 [facility] Adult [address] [place] [address]- Attending Physician: Hunter Cortes MD Allergies, Adverse [...] 13-valent vaccine 04/03/15 Given 1Result Comment: [05/03/2018] [facility]-[id number] 2Result Comment: [12/21/2017] [id number] Medications Anecream Topically, 3 times a day, [...] 5 Refills, Soft Stop, 05/09/20 13:09:00 EDT, [facility], 152.1, [...] DryWeight Start Date: 08/25/20 Status: Ordered Pen [place], 31 G x 5 mm BD Ultra Fine III See Instructions, # 120 each, Refills 2, Tot. 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
--- OUTSIDE RECORDS SUMMARY | 2022-12-22 17:01 | XMS_ITS | Continuity of Care Document ---
Author Name Unknown Organization [facility] Serjio lt Address [address] [place] [address]- Care Team Providers Care Small Electric Engine Technician Name Role Phone Hunter Cortes MD Primary Care Physician [place] [facility] [place] [facility] Adult [address] [place] [address]- Allergies, Adverse Reactions, Alerts Substance Reaction Severity [...] 04/03/15 Given 1Result Comment: [05/03/2018] [facility]-[id number] 2Result Comment: [12/21/2017] 35452-626-16 Medications aspirin 81 mg oral tablet 1 [...] Weight Start Date: 09/26/19 Status: Ordered Pen [place], 31 G x 5 mm BD Ultra Fine III See Instructions, # 120 each, Refills 2, Tot. 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
--- OUTSIDE RECORDS SUMMARY | 2022-12-22 17:01 | XMS_ITS | Continuity of Care Document ---
Author Name Unknown Organization [facility] Serjio lt Address [address] [place] [address]- Care Team Providers Care Corporate Development Analyst Name Role Phone Hunter Cortes MD Primary Care Physician [phone] [place] [facility] [place] 10/23/20 - 11/22/20 [facility] Adult [address] [place] [address]- Allergies, Adverse Reactions, Alerts Substance Reaction Severity [...] Given 1Result Comment: [05/03/2018] [facility]-[id number] 2Result Comment: [12/21/2017] [id number] Medications Anecream Topically, 3 times a day, [...] Supply... Start Date: 10/10/20 Status: Ordered Pen [place], 31 G x 5 mm BD Ultra Fine III See Instructions, # 120 each, Refills 2, Tot. 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
--- OUTSIDE RECORDS SUMMARY | 2022-12-22 17:01 | XMS_ITS | Continuity of Care Document ---
Author Name Unknown Organization [facility] Serjio lt Address [address] [place] [address]- Care Team Providers Care Scaffold Worker Name Role Phone Bartolo WILSON, Trinh Tenorio Primary Care Physician Encounter [facility] Date(s): 11/14/21 - 01/29/22 [facility] Adult [address] [place] [address]- Attending Physician: Radha Esquivel MD Referring Physician: Georgie FREEMAN, Ezequiel Chino Allergies, Adverse [...] Given 1Result Comment: [05/03/2018] [facility]-[id number] 2Result Comment: [12/21/2017] 28122-332-07 Medications Anecream Topically, 3 times a day, for headaches prescribed by psychiatrist per Pt, 0 Refills, Maintenance, 07/23/20 14:42:00 EST, Partial fill upon patient request if the prescription is for a schedule II opioid drug. Start Date: 07/23/20 Status: Ordered AneCream 4% topical cream See Instructions, APPLY TOPICALLY TWICE A DAY, # 15 Gm, 0 Refills, [facility], 0, APPLY TOPICALLY TWICE A DAY, [...] 28 tablet, 5 Refills, 11/04/21 16:58:00 EDT, [facility], 152.1, cm, 09/25/21 11:31:00 EST, Height [...] Mouth, Daily, # 28 capsule, 1 Refills, [facility], 152.1, cm, 12/02/21 15:27:00 EDT, Height Start Date: 01/21/22 Status: Ordered Diabetic Shoes Diabetic Shoes, See Instructions, # 1 each, Refills 1, Tot. 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 Start Date: 01/08/22 Status: Ordered [...] 15 mL, 11 Refills, 11/04/21 17:00:00 EDT, [facility], 152.1, cm, 09/25/21 11:31:00 EST, Height [...] 28 tablet, 5 Refills, 11/04/21 16:58:00 EDT, [facility], 152.1, cm, 09/25/21 11:31:00 EST, Height [...] Mouth, Daily, # 28 capsule, 0 Refills, [facility], 152.1, cm, 12/02/21 15:27:00 EDT, [...] PAIN Start Date: 09/24/21 Status: Ordered Pen [place], 31 G x 5 mm BD Ultra Fine III See Instructions, # 120 each, Refills 2, Tot. Refills 2, Maintenance, Use four times a day DM [id number] Office visit needed for further refills, 07/21/18 [...]
--- OUTSIDE RECORDS SUMMARY | 2022-12-22 17:01 | XMS_ITS | Continuity of Care Document ---
Author Name Unknown Organization [facility] Serjio lt Address [address] [place] [address]- Care Team Providers Care Certified Scrub Tech Name Role Phone Ezequiel Jacques MD Primary Care Physician [phone] Encounter [facility] Date(s): 05/08/22 - 05/15/22 [facility] Adult [address] [place] [address]- Attending Physician: Ezequiel Jacques MD Allergies, Adverse [...] 13-valent vaccine 04/03/15 Given 1Result Comment: [05/03/2018] [facility]-[id number] 2Result Comment: [12/21/2017] [id number] Medications Anecream Topically, 3 times a day, [...] tablet, By Mouth, Daily, # 30 tablet, 2 Refills, [facility], 152.1, cm, 02/03/22 10:10:00EDT, Height Start Date: 02/18/22 Status: Ordered atorvastatin 10 mg oral tablet 1 tablet, By Mouth, Daily, # 28 tablet, 2 Refills, Maintenance, 03/18/22 21:26:00 EDT, [facility], 152.1, cm, 02/03/22 10:10:00 [...] MOUTH TWICE DAILY PLEASE SCHEDULE PHYSICAL WITH QUYEN ESQUIVEL NP, #56 tablet, 5 Refills, 11/01/21 10:43:00 EDT, [facility], 152.1, cm, 09/25/21 11:31:00 EST, Height Start Date: 11/01/21 Status: Ordered D3 50 mcg (2000 intl units) oral capsule 1 capsule, By Mouth, Daily, # 28 capsule, 2 Refills, Maintenance, 03/20/22 6:57:00 EDT, [facility], 152.1, cm, 02/03/22 10:10:00 EDT, Height Start Date: 03/20/22 Status: Ordered Diabetic Shoes Diabetic Shoes, See Instructions, # 1 each, Refills 1, Tot. 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 Start Date: 01/08/22 Status: Ordered Lancets [...] 15 mL, 11 Refills, 11/04/21 17:00:00 EDT, [facility], 152.1, cm, 09/25/21 11:31:00 EST, Height Start Date: 11/04/21 Status: Ordered levothyroxine 0.112 mg oral tablet 1 tablet, By Mouth, Daily, # 28 tablet, 2 Refills, [facility], 152.1, cm, 02/03/22 10:10:00EDT, Height Start Date: 02/18/22 Status: Ordered Yasmeen Sensors 14 day (dispense [...] 4 Refills, Maintenance, 04/11/22 11:27:00 EDT, [facility], 152.1, cm, 02/03/22 10:10:00 EDT, Height Start Date: 04/11/22 Status: Ordered MetFORMIN (Eqv-Glucophage XR) 500 mg oral tablet, extended release 1 tablet, By Mouth, Daily, # 28 tablet, 2 Refills, [facility], 152.1, cm, 02/03/22 10:10:00EDT, Height Start Date: 02/18/22 Status: Ordered Ocuvite Lutein By Mouth, Daily, 0 Refills, Maintenance, 04/03/15 13:16:39 Start Date: 04/03/15 Status: Ordered omeprazole 20 mg oral enteric coated capsule 1 capsule, By Mouth, Daily, # 28 capsule, 0 Refills, Maintenance, 04/10/22 10:31:00 EDT, [facility], 152.1, cm, 02/03/22 10:10:00 EDT, Height Start Date: 04/10/22 Status: Ordered one walker one walker, See [...] PAIN Start Date: 09/24/21 Status: Ordered Pen [place], 31 G x 5 mm BD Ultra Fine III See Instructions, # 120 each, Refills 2, Tot. 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 [...] [Reference Range]: 1 2 Height 152.1 cm (05/08/22 11:14 AM) 151.5 cm (05/08/22 11:12 AM) Weight 74.3 kg (05/08/22 11:12 AM) Oxygen Saturation [94-100 %] 98 % (05/08/22 11:12 AM) Pulse Rate [55-90 bpm] 88 bpm (05/08/22 11:12 AM) Body Mass Index [18.5-24.99 kg/m2] 32.37 kg/m2 *>HHI* (05/08/22 11:12 AM) Blood Pressure [90-138/55-84 mm Hg] 136/ 83mm Hg (05/08/22 11:14 AM) 154/75mm Hg *H* (05/08/22 11:12 AM) Mode of Delivery (Oxygen) Room air (05/08/22 11:12 AM) Blood pressure sites Arm, left (05/08/22 11:14 AM) Arm, left (05/08/22 11:12 AM) Weight Obtained Via Standing scale (05/08/22 11:12 AM) Social History Social History Type Response Smoking Status Former smoker entered on: 09/14/17 Sex Patient Care team information Personnel Name: Ezequiel Jacques MD Address: Address: [address] [place] [id number]
[2022-12-22 17:02] LABS: COVID-19 Test Negative (Negative)
--- OUTSIDE RECORDS SUMMARY | 2022-12-22 17:02 | XMS_ITS | Continuity of Care Document ---
Author Name Unknown Organization [facility] Serjio lt Address [address] [place] [address]- Care Team Providers Care Correctional Counselor Name Role Phone Ezequiel Jacques MD Primary Care Physician Encounter [facility] Date(s): 08/22/22 - 12/19/22 [facility] Adult [address] [place] [address]- Attending Physician: Ezequiel Jacques MD Allergies, Adverse [...] vaccine 04/03/15 Given 1Result Comment: [05/03/2018] [facility]-[id number] 2Result Comment: [12/21/2017] [id number] Medications Anecream Topically, 3 times a day, [...] tablet, 5 Refills, Maintenance, 11/19/22 13:51:00 EDT, [facility], 152.1, cm, 08/22/22 10:03:00 EST, Height Start Date: 11/19/22 Status: Ordered atorvastatin 10 mg oral tablet 1 tablet, By Mouth, Daily, R4., # 28 tablet, 5 Refills, Maintenance, 11/05/22 6:36:00 EDT, [facility], [facility], cm, 08/22/22 10:03:00 EST, Height [...] tablet, 4 Refills, Maintenance, 09/12/22 11:22:00 EST, [facility], 152.1, cm, 08/22/22 10:03:00 EST, Height Start Date: 09/12/22 Status: Ordered Diabetic Shoes Diabetic Shoes, See Instructions, # 1 each, Refills 1, Tot. 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 Refills 5, Maintenance, 08/21/22 16:13:00 EST, Route to Pharmacy Electronically, [facility], 152.1, cm, 05/08/22 11:14:00 EDT, Height [...] # 8each, 5 Refills, 05/28/22 13:24:00 EST, [facility], 152.1, cm, 05/08/22 11:14:00 [...] tablet, 5 Refills, Maintenance, 08/21/22 13:11:00 EST, [facility], 152.1, cm, 05/08/22 11:14:00 EDT, Height Start Date: 08/21/22 Status: Ordered metFORMIN 500 mg oral tablet, extended release 2 tablet = 1,000 mg, By Mouth, Daily, # 60 tablet, 11 Refills, Maintenance, 05/30/22 6:18:00 EST, [facility], Partial fill upon patient request if the prescription is for a schedule II opioiddrug., 152.1, cm, 05/08/22 11:14:00 EDT, Height Start Date: 05/30/22 Status: Ordered Ocuvite Lutein By Mouth, Daily, 0 Refills, Maintenance, 04/03/15 13:16:39 Start Date: 04/03/15 Status: Ordered omeprazole 20 mg oral enteric coated capsule 1 capsule, By Mouth, Daily, R1., # 28 capsule, 5 Refills, Maintenance, 07/28/22 12:14:00 EST, [facility], 152.1, cm, 05/08/22 11:14:00 EDT, Height [...] PAIN Start Date: 09/24/21 Status: Ordered Pen [place], 31 G x 5 mm BD Ultra Fine III See Instructions, # 120 each, Refills 2, Tot. Refills 2, Maintenance, Use four times a day DM [id number] Office visit needed for further refills, 07/21/18 [...] Date: 08/21/22 Status: Ordered UNIFINE PNTP MIS [id number] UNIFINE PNTP MIS [id number], See Instructions, # 100 each, 1 Refills, Maintenance, DIRECTED FOUR TIMES DAILY, 05/10/22 10:46:00 EDT, 152.1, cm, 05/08/22 11:14:00 EDT, Height Start Date: 05/10/22 Status: Ordered UNIFINE PNTP MIS [id number] UNIFINE PNTP MIS [id number], See Instructions, # 100 each, 2 Refills, [...] capsule, 5 Refills, Maintenance, 11/28/22 11:00:00 EDT, [facility], 152.1, cm, 08/22/22 10:03:00 EST, Height Start Date: 11/28/22 Status: Ordered Problem List Condition Confirmation Course Effective Dates Status H ealth Status Informant Obesity (BMI 30-39.9) Confirmed Active Complicated bereavement 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
--- OUTSIDE RECORDS SUMMARY | 2022-12-22 17:02 | XMS_ITS | Continuity of Care Document ---
Author Name Unknown Organization [facility] Serjio lt Address [address] [place] [address]- Care Team Providers Care Security Solutions Architect Name Role Phone Georgie FREEMAN, Ezequiel Chino Primary Care Physician Encounter [facility] Date(s): 11/03/22 - 12/03/22 [facility] Adult [address] [place] [address]- Allergies, Adverse Reactions, Alerts Substance Reaction Severity [...] 13-valent vaccine 04/03/15 Given 1Result Comment: [05/03/2018] [facility]-[id number] 2Result Comment: [12/21/2017] [id number] Medications Anecream Topically, 3 times a day, [...] tablet, 5 Refills, Maintenance, 11/19/22 13:51:00 EDT, [facility], 152.1, cm, 08/22/22 10:03:00 EST, Height Start Date: 11/19/22 Status: Ordered atorvastatin 10 mg oral tablet 1 tablet, By Mouth, Daily, R4., # 28 tablet, 5 Refills, Maintenance, 11/05/22 6:36:00 EDT, [facility], 152.1, cm, 08/22/22 10:03:00 EST, Height [...] tablet, 4 Refills, Maintenance, 09/12/22 11:22:00 EST, [facility], 152.1, cm, 08/22/22 10:03:00 EST, Height Start Date: 09/12/22 Status: Ordered Diabetic Shoes Diabetic Shoes, See Instructions, # 1 each, Refills 1, Tot. 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 Refills 5, Maintenance, 08/21/22 16:13:00 EST, Route to Pharmacy Electronically, [facility], 152.1, cm, 05/08/22 11:14:00 EDT, Height [...] # 8each, 5 Refills, 05/28/22 13:24:00 EST, [facility], 152.1, cm, 05/08/22 11:14:00 EDT, Height Start Date: 05/28/22 Status: Ordered levothyroxine 0.112 mg oral tablet 1 tablet, By Mouth, Daily, # 28 tablet, 1 Refills, Maintenance, 05/18/22 15:34:00 EDT, [facility], 152.1, cm, 05/08/22 11:14:00 EDT, Height [...] tablet, 5 Refills, Maintenance, 08/21/22 13:11:00 EST, [facility], 152.1, cm, 05/08/22 11:14:00 EDT, Height Start Date: 08/21/22 Status: Ordered metFORMIN 500 mg oral tablet, extended release 2 tablet = 1,000 mg, By Mouth, Daily, # 60 tablet, 11 Refills, Maintenance, 05/30/22 6:18:00 EST, [facility], Partial fill upon patient request if the prescription is for a schedule II opioiddrug., 152.1, cm, 05/08/22 11:14:00 EDT, Height Start Date: 05/30/22 Status: Ordered Ocuvite Lutein By Mouth, Daily, 0 Refills, Maintenance, 04/03/15 13:16:39 Start Date: 04/03/15 Status: Ordered omeprazole 20 mg oral enteric coated capsule 1 capsule, By Mouth, Daily, R1., # 28 capsule, 5 Refills, Maintenance, 07/28/22 12:14:00 EST, [facility], 152.1, cm, 05/08/22 11:14:00 EDT, Height Start Date: 07/28/22 Status: Ordered one walker one walker, See Instructions, # 1 each, Refills 0, Tot. Refills 0, Maintenance, Dispense one walkerwith wheels Diagnosis: back pain Please deliver, 10/10/20 10:24:00 EDT, Dispense one walker with wheels; Diagnosis: back pain; Please deliver, Supply... Start Date: 3/24/21 Status: Ordered oxyCODONE 5 mg oral tablet TAKE 1 TABLET BY MOUTH TWICE A DAY NEEDED FOR PAIN Start Date: 09/24/21 Status: Ordered Pen [place], 31 G x 5 mm BD Ultra Fine III See Instructions, # 120 each, Refills 2, Tot. Refills 2, Maintenance, Use four times a day DM [id number] Office visit needed for further refills, 07/21/18 [...] Date: 08/21/22 Status: Ordered UNIFINE PNTP MIS [id number] UNIFINE PNTP MIS [id number], See Instructions, # 100 each, 1 Refills, Maintenance, DIRECTED FOUR TIMES DAILY, 05/10/22 10:46:00 EDT, 152.1, cm, 05/08/22 11:14:00 EDT, Height Start Date: 05/10/22 Status: Ordered UNIFINE PNTP MIS [id number] UNIFINE PNTP MIS [id number], See Instructions, # 100 each, 2 Refills, [...] capsule, 5 Refills, Maintenance, 11/28/22 11:00:00 EDT, [facility], [facility], cm, 08/22/22 10:03:00 EST, Height Start Date: 11/28/22 Status: Ordered Problem List Condition Confirmation Course Effective Dates Status H ealth Status Informant Obesity (BMI 30-39.9) Confirmed Active Complicated bereavement 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
--- OUTSIDE RECORDS SUMMARY | 2022-12-22 17:02 | XMS_ITS | Continuity of Care Document ---
Author Name Unknown Organization [facility] Serjio lt Address [address] [place] [address]- Care Team Providers Care Plant Safety Leader Name Role Phone Georgie FREEMAN, Ezequiel Chino Primary Care Physician Encounter [facility] Date(s): 10/20/22 - 11/19/22 [facility] Adult [address] [place] [address]- Allergies, Adverse Reactions, Alerts Substance Reaction Severity [...] Comment: [05/03/2018] [facility]-[id number] 2Result Comment: [12/21/2017] 32714-056-07 Medications Anecream Topically, 3 times a day, [...] tablet, 5 Refills, Maintenance, 11/19/22 13:51:00 EDT, [facility], 152.1, cm, 08/22/22 10:03:00 EST, Height Start Date: 11/19/22 Status: Ordered atorvastatin 10 mg oral tablet 1 tablet, By Mouth, Daily, R4., # 28 tablet, 5 Refills, Maintenance, 11/05/22 6:36:00 EDT, [facility], 152.1, cm, 08/22/22 10:03:00 EST, Height [...] tablet, 4 Refills, Maintenance, 09/12/22 11:22:00 EST, [facility], 152.1, cm, 08/22/22 10:03:00 EST, Height Start Date: 09/12/22 Status: Ordered Diabetic Shoes Diabetic Shoes, See Instructions, # 1 each, Refills 1, Tot. 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 Refills 5, Maintenance, 08/21/22 16:13:00 EST, Route to Pharmacy Electronically, [facility], 152.1, cm, 05/08/22 11:14:00 EDT, Height [...] # 8each, 5 Refills, 05/28/22 13:24:00 EST, [facility], 152.1, cm, 05/08/22 11:14:00 EDT, Height Start Date: 05/28/22 Status: Ordered levothyroxine 0.112 mg oral tablet 1 tablet, By Mouth, Daily, # 28 tablet, 1 Refills, Maintenance, 05/18/22 15:34:00 EDT, [facility], 152.1, cm, 05/08/22 11:14:00 EDT, Height [...] tablet, 5 Refills, Maintenance, 08/21/22 13:11:00 EST, [facility], 152.1, cm, 05/08/22 11:14:00 EDT, Height Start Date: 08/21/22 Status: Ordered metFORMIN 500 mg oral tablet, extended release 2 tablet = 1,000 mg, By Mouth, Daily, # 60 tablet, 11 Refills, Maintenance, 05/30/22 6:18:00 EST, [facility], Partial fill upon patient request if the prescription is for a schedule II opioiddrug., 152.1, cm, 05/08/22 11:14:00 EDT, Height Start Date: 05/30/22 Status: Ordered Ocuvite Lutein By Mouth, Daily, 0 Refills, Maintenance, 04/03/15 13:16:39 Start Date: 04/03/15 Status: Ordered omeprazole 20 mg oral enteric coated capsule 1 capsule, By Mouth, Daily, R1., # 28 capsule, 5 Refills, Maintenance, 07/28/22 12:14:00 EST, [facility], 152.1, cm, 05/08/22 11:14:00 EDT, Height [...] PAIN Start Date: 09/24/21 Status: Ordered Pen [place], 31 G x 5 mm BD Ultra Fine III See Instructions, # 120 each, Refills 2, Tot. Refills 2, Maintenance, Use four times a day DM [id number] Office visit needed for further refills, 07/21/18 [...] Date: 08/21/22 Status: Ordered UNIFINE PNTP MIS [id number] UNIFINE PNTP MIS [id number], See Instructions, # 100 each, 1 Refills, Maintenance, DIRECTED FOUR TIMES DAILY, 05/10/22 10:46:00 EDT, 152.1, cm, 05/08/22 11:14:00 EDT, Height Start Date: 05/10/22 Status: Ordered UNIFINE PNTP MIS [id number] UNIFINE PNTP MIS [id number], See Instructions, # 100 each, 2 Refills, [...] capsule, 2 Refills, Maintenance, 07/02/22 14:28:00 EST, [facility], 152.1, cm, 05/08/22 11:14:00 EDT, Height Start Date: 07/02/22 Status: Ordered Problem List Condition Confirmation Course Effective Dates Status H ealth Status Informant Obesity (BMI 30-39.9) Confirmed Active 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
--- OUTSIDE RECORDS SUMMARY | 2022-12-22 17:02 | XMS_ITS | Continuity of Care Document ---
Author Name Unknown Organization [facility] Serjio lt Address [address] [place] [address]- Care Team Providers Care Surgical Services Assistant Name Role Phone Hunter Cortes MD Primary Care Physician Encounter [facility] Date(s): 10/09/20 - 10/16/20 [facility] Adult [address] [place] [address]- Encounter Diagnosis Acute left-sided back pain with sciatica(Discharge Diagnosis) - 10/09/20 Attending Physician: Hunter Cortes MD Allergies, Adverse [...] 13-valent vaccine 04/03/15 Given 1Result Comment: [05/03/2018] [facility]-[id number] 2Result Comment: [12/21/2017] [id number] Medications Anecream Topically, 3 times a day, [...] Supply... Start Date: 10/10/20 Status: Ordered Pen [place], 31 G x 5 mm BD Ultra Fine III See Instructions, # 120 each, Refills 2, Tot. 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
--- OUTSIDE RECORDS SUMMARY | 2022-12-22 17:02 | XMS_ITS | Continuity of Care Document ---
Author Name Unknown Organization [facility] Serjio lt Address [address] [place] [address]- Care Team Providers Care News Internship Name Role Phone Bartolo WILSON, Trinh Tenorio Primary Care Physician Encounter [facility] [place] Date(s): 10/31/21 - 11/30/21 [facility] Adult [address] [place] [address]- Allergies, Adverse Reactions, Alerts Substance Reaction Severity [...] vaccine 04/03/15 Given 1Result Comment: [05/03/2018] [facility]-[id number] 2Result Comment: [12/21/2017] [id number] Medications Anecream Topically, 3 times a day, [...] 28 tablet, 5 Refills, 11/04/21 16:58:00 EDT, [facility], 152.1, cm, 09/25/21 11:31:00 EST, Height [...] 5 Refills, 11/01/21 10:43:00 EDT, [facility], 152.1, cm, 09/25/21 11:31:00 EST, Height Start Date: 11/01/21 Status: Ordered Diabetic Shoes Diabetic Shoes, See Instructions, # 1 each, Refills 1, Tot. 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, 03/10/17 10:06:57, Compound Start Date: 03/10/17 Status: Ordered FLUoxetine 40 mg oral capsule 1 capsule, By Mouth, Daily, # 28 capsule, 5 Refills, [facility], 152.1, cm, 09/25/21 11:31:00 EST, Height Start Date: 11/01/21 Status: Ordered furosemide 40 mg oral tablet 1, tablet, By Mouth, Daily, # 28 tablet, Refills 5, Route to Pharmacy Electronically, [facility], 152.1, cm, 09/25/21 11:31:00 EST, Height [...] 15 mL, 11 Refills, 11/04/21 17:00:00 EDT, [facility], 152.1, cm, 09/25/21 11:31:00 EST, Height Start [...] 5, Maintenance, IDDM E11.9, 12/01/19 10:39:00 EDT, [facility], 152.1, cm, 06/14/19 10:04:00 EST, Height, 75.8, [...] 28 tablet, 5 Refills, 11/04/21 16:58:00 EDT, [facility], 152.1, cm, 09/25/21 11:31:00 EST, Height Start [...] PAIN Start Date: 09/24/21 Status: Ordered Pen [place], 31 G x 5 mm BD Ultra Fine III See Instructions, # 120 each, Refills 2, Tot. 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
[2022-12-22 17:25] LABS: Glucose, Whole Blood 114 mg/dL (60-115)
--- NOTE | 2022-12-22 17:34 | ED.PSYCH ---
HPI - Psych General Chief Complaint: Psychiatric Symptoms Stated Complaint: SEC 12,SI STATEMENTS PER EMS Time Seen by Provider: 12/22/22 16:29 Source: patient Mode of arrival: ambulatory Limitations: no limitations History of Present Illness HPI Narrative: 82 yold female with pmh of DM and depression presents to the ED for suicidal statements. patient was having an argument with family members and she was upset and states she wanted to shoot herself and stab her self. patient denies hearing voices or having auditroy hallucinations. Patient denies any physical complaints. Patient states presently denies any suicidal or homicidal ideation. Related Data Home Medications Medication Instructions Recorded Confirmed atorvastatin 10 mg tablet 10 mg PO DAILY 12/22/22 12/22/22 bupropion HCl 200 mg tablet,12 hr 200 mg PO BID 12/22/22 12/22/22 sustained-release fluoxetine 40 mg capsule 40 mg PO DAILY 12/22/22 12/22/22 furosemide 40 mg tablet 40 mg PO DAILY 12/22/22 12/22/22 insulin detemir U-100 100 unit/mL 66 unit subcut BEDTIME 12/22/22 12/22/22 (3 mL) subcutaneous pen (Levemir FlexPen) insulin lispro 100 unit/mL See Protocol subcut TIDAC 12/22/22 12/22/22 subcutaneous pen (Humalog KwikPen (U-100) Insulin) lisinopril 40 mg tablet 40 mg PO DAILY 12/22/22 12/22/22 metformin 500 mg tablet,extended 500 mg PO BID 12/22/22 12/22/22 release 24 hr omeprazole 20 mg capsule,delayed 20 mg PO DAILY 12/22/22 12/22/22 release Allergies Allergy/AdvReac Type Severity Reaction Status Date / Time bee pollen [BEE STINGS] Allergy Unknown UNKNOWN Verified 09/13/21 12:11 morphine [MORPHINE] Allergy Unknown UNKNOWN Verified 09/13/21 12:11 Penicillins [PENICILLINS] Allergy Unknown UNKNOWN Verified 09/13/21 12:11 Review of Systems Review of Systems: suicidal ideation Yes all other systems are reviewed and are negative [facility] Social History Social History Alcohol intake: never Patient Tobacco Use Status: Never used Tobacco Advance Directives: No Advance Directives Information Provided: No Healthcare Proxy: No Guardian: No Physical Exam Vital Signs: Vital Signs: Last Vital Signs Temp 98.7 F 12/22/22 15:20 Pulse 102 H 12/22/22 15:20 Resp 20 12/22/22 15:20 BP 116/62 12/22/22 15:20 Pulse Ox 97 12/22/22 15:20 O2 Del Method Room Air 12/22/22 15:20 BMI result Body Mass Index 37.8 Const: General: cooperative, healthy appearing, comfortable, no acute distress, well developed, alert, awake and Physically active Orientation/consciousness: oriented to person, oriented to place, oriented to time and patient oriented x3 HEENT: Head: Yes normal to inspection, Yes No palpable skull fracture present, Yes normocephalic, Yes atraumatic and No abrasion Eyes: General: appearance normal, both eyes and all related structures Neck: Neck: Yes normal visual inspection, Yes full ROM, Yes no lymphadenopathy, Yes no meningeal signs, Yes trachea midline, Yes supple, No anterior neck swelling and No tender Chest: Chest palpation & inspection: normal inspection of the chest and normal palpation of entire chest wall Resp: Effort & Inspection: normal respiratory effort and able to speak in complete sentences Auscultation: clear to auscultation bilaterally Cardio: Jugular venous distension: no JVD Heart sounds: S1 normal heart sound present and S2 normal heart sound present GI: Inspection: Yes normal to inspection and No abdominal wall ecchymosis Palpation (GI): Soft to palpation, not firm, nontender, no guarding and not rigid : General: No CVA tenderness and Yes no CVA tenderness Back/Spine/Pelvis: Back: no CVA tenderness, No CVA tenderness and No back tenderness Skin: General skin exam: no rashes or lesions noted and elasticity normal Neuro: General: oriented to person, oriented to place, oriented to time, patient oriented x3, gait normal, tone normal, moves all extremities, Normal light touch and pain sensation, no meningeal signs, no focal motor deficits, CN's II-XI intact bilaterally and normal sensation to monofilament Extrem: General: Yes normal to inspection and Yes full ROM Psych: Appearance: grossly normal, well kempt and not disheveled Course Course Course Narrative: DUe to age labs were ordered for medical clearance. Patient presently is not suicidal. patient intially hypoglyemic and patient given juice and mutliple sandwiches and glucose improved. patient admitted to not eating much food today. As per Grandson, patient at times eat food she is not supposed too and than increases her insulin use. Reevaluation(s) Reevaluation #1: patient seen by Care team Forensic Artist who state patient will be voluntary psych admission. Time: 00:59 Medications Administered Generic Name Dose Route Start Last Admin Trade Name Freq PRN Reason Stop Dose Admin Insulin Glargine 66 unit 12/23/22 21:00 12/22/22 23:28 Insulin Glargine,Hum.Rec.Anlog 100 Unit/Ml 10 Ml Vial SUBCUT 66 unit BEDTIME SHIREEN Administration Trazodone HCl 50 mg 12/22/22 22:00 12/22/22 23:27 Trazodone Hcl 50 Mg Tablet PO 50 mg BEDTIME MRX1 PRN Administration Insomnia Medical Decision Making Medical Decision Making MDM Narrative: 82-year-old female presents to ED for suicidal thoughts. Patient medically cleared. Patient seen by care team consulted who states patient agreeable fall into admission for depression. Patient glucose has been stable. Rest of labs normal Differential Diagnosis Differential Diagnoses: The differential diagnosis associated with the presentation includes (Suicidal, homicidal, depression, anxiety, hypoglycemia) Admission/Observation Consideration of admission/observation: Escalation of care including admission/observation considered Consult Healthcare Provider Management of the patient was discussed with: Forensic Artist (Care team consulted) Lab Data [facility] Lab Attestation statement: I reviewed the patient's lab results. 12/22/22 16:28 12/22/22 16:28 Labs: Lab Results 12/22/22 12/22/22 12/22/22 Range/Units 15:42 16:28 16:28 WBC 13.7 H (4.8-10.8) X10*3/uL RBC 4.93 (4.20-5.50) X10*6/uL Hgb 12.9 (12.0-16.0) g/dl Hct 41.6 (37.0-47.0) % MCV 84.4 (80.0-98.0) fL MCH 26.2 L (27.0-33.0) pg MCHC 31.0 (31.0-35.0) g/dl RDW 15.6 (11.0-16.0) % Plt Count 536 H (160-400) X10*3/uL MPV 9.6 (9.4-12.3) fL Immature Gran % (Auto) 0.5 H (0.0-0.4) % Neut % (Auto) 63.6 (45-73) % Lymph % (Auto) 24.7 (20-40) % [place] % (Auto) 7.2 (2-11) % Eos % (Auto) 3.5 (0-4) % Baso % (Auto) 0.5 (0-2) % Lymph # (Auto) 3.4 (1.2-4.9) X10*3/uL [place] # (Auto) 1.0 (0.1-1.2) X10*3/uL Eos # (Auto) 0.5 H (0.0-0.4) X10*3/uL Baso # (Auto) 0.1 (0.0-0.2) X10*3/uL Abs Immat Gran (auto) 0.07 H (0.00-0.03) X10*3/uL Absolute Neuts (auto) 8.7 H (2.0-8.3) x10*3/uL Absolute Nucleated RBC 0.000 (0.0-0.012) X10*3/uL Nucleated RBC % (auto) 0.0 (0.0-0.2) /100WBC Sodium 144 (135-145) mmol/L Potassium 4.1 D (3.3-5.1) mmol/L Chloride 103 (96-108) mmol/L Carbon Dioxide 29 (22-29) mmol/L Anion Gap 16 (12-20) BUN 18 H (9-16) mg/dL Creatinine 1.04 (0.5-1.4) mg/dL Estim Creat Clear Calc 44.2 Estimated GFR 51 POC Glucose 43 L* (60-115) mg/dL Random Glucose 75 (60-115) mg/dL Calcium 10.0 (8.4-10.2) mg/dL Total Bilirubin 0.3 (0.0-1.0) mg/dL AST 19 (5-31) U/L ALT 18 (0-31) U/L Alkaline Phosphatase 85 (39-117) U/L Total Protein 7.4 (6.5-8.0) g/dL Albumin 4.1 (3.5-5.0) g/dL Urine Color Urine Appearance Urine pH (5.0-9.0) Ur Specific [place] (1.005-1.025) Urine Protein (Neg-Trace) mg/dL Urine Glucose (UA) (Negative) mg/dL Urine Ketones (Negative) mg/dL Urine Blood (Negative) Urine Nitrite (Negative) Ur Leukocyte Esterase (Negative) Urine RBC (0-2) /HPF Urine WBC (0-5) /HPF Ur Squamous Epith Cells (0-2) /HPF Urine Bacteria (None Seen) Hyaline Casts (0-2) /LPF Salicylates < 5.0 L (15-30) mg/dL Urine Opiates Screen (Not Detect) Urine Fentanyl Screen (Not Detect) Acetaminophen < 17 (<30) mcg/mL Ur Barbiturates Screen (Not Detect) Ur Phencyclidine Scrn (Not Detect) Ur Amphetamines Screen (Not Detect) U Benzodiazepines Scrn (Not Detect) Urine Cocaine Screen (Not Detect) U Marijuana (THC) Screen (Not Detect) Ethyl Alcohol < 10 mg/dL COVID-19 (BECCA) (Negative) COVID-19 Clin Com 12/22/22 12/22/22 12/22/22 Range/Units 16:28 16:28 16:28 WBC (4.8-10.8) X10*3/uL RBC (4.20-5.50) X10*6/uL Hgb (12.0-16.0) g/dl Hct (37.0-47.0) % MCV (80.0-98.0) fL MCH (27.0-33.0) pg MCHC (31.0-35.0) g/dl RDW (11.0-16.0) % Plt Count (160-400) X10*3/uL MPV (9.4-12.3) fL Immature Gran % (Auto) (0.0-0.4) % Neut % (Auto) (45-73) % Lymph % (Auto) (20-40) % [place] % (Auto) (2-11) % Eos % (Auto) (0-4) % Baso % (Auto) (0-2) % Lymph # (Auto) (1.2-4.9) X10*3/uL [place] # (Auto) (0.1-1.2) X10*3/uL Eos # (Auto) (0.0-0.4) X10*3/uL Baso # (Auto) (0.0-0.2) X10*3/uL Abs Immat Gran (auto) (0.00-0.03) X10*3/uL Absolute Neuts (auto) (2.0-8.3) x10*3/uL Absolute Nucleated RBC (0.0-0.012) X10*3/uL Nucleated RBC % (auto) (0.0-0.2) /100WBC Sodium (135-145) mmol/L Potassium (3.3-5.1) mmol/L Chloride (96-108) mmol/L Carbon Dioxide (22-29) mmol/L Anion Gap (12-20) BUN (9-16) mg/dL Creatinine (0.5-1.4) mg/dL Estim Creat Clear Calc Estimated GFR POC Glucose (60-115) mg/dL Random Glucose (60-115) mg/dL Calcium (8.4-10.2) mg/dL Total Bilirubin (0.0-1.0) mg/dL AST (5-31) U/L ALT (0-31) U/L Alkaline Phosphatase (39-117) U/L Total Protein (6.5-8.0) g/dL Albumin (3.5-5.0) g/dL Urine Color Yellow Urine Appearance Clear Urine pH 7.5 (5.0-9.0) Ur Specific [place] 1.010 (1.005-1.025) Urine Protein Trace (Neg-Trace) mg/dL Urine Glucose (UA) Negative (Negative) mg/dL Urine Ketones Negative (Negative) mg/dL Urine Blood Negative (Negative) Urine Nitrite Negative (Negative) Ur Leukocyte Esterase Trace H (Negative) Urine RBC 0-2 (0-2) /HPF Urine WBC 0-5 (0-5) /HPF Ur Squamous Epith Cells 6-10 (0-2) /HPF Urine Bacteria 1+ (None Seen) Hyaline Casts 3-5 (0-2) /LPF Salicylates (15-30) mg/dL Urine Opiates Screen Not Detected (Not Detect) Urine Fentanyl Screen Not Detected (Not Detect) Acetaminophen (<30) mcg/mL Ur Barbiturates Screen Not Detected (Not Detect) Ur Phencyclidine Scrn Not Detected (Not Detect) Ur Amphetamines Screen Not Detected (Not Detect) U Benzodiazepines Scrn Not Detected (Not Detect) Urine Cocaine Screen Not Detected (Not Detect) U Marijuana (THC) Screen Not Detected (Not Detect) Ethyl Alcohol mg/dL COVID-19 (BECCA) Negative (Negative) COVID-19 Clin Com See Note 12/22/22 Range/Units 17:21 WBC (4.8-10.8) X10*3/uL RBC (4.20-5.50) X10*6/uL Hgb (12.0-16.0) g/dl Hct (37.0-47.0) % MCV (80.0-98.0) fL MCH (27.0-33.0) pg MCHC (31.0-35.0) g/dl RDW (11.0-16.0) % Plt Count (160-400) X10*3/uL MPV (9.4-12.3) fL Immature Gran % (Auto) (0.0-0.4) % Neut % (Auto) (45-73) % Lymph % (Auto) (20-40) % [place] % (Auto) (2-11) % Eos % (Auto) (0-4) % Baso % (Auto) (0-2) % Lymph # (Auto) (1.2-4.9) X10*3/uL [place] # (Auto) (0.1-1.2) X10*3/uL Eos # (Auto) (0.0-0.4) X10*3/uL Baso # (Auto) (0.0-0.2) X10*3/uL Abs Immat Gran (auto) (0.00-0.03) X10*3/uL Absolute Neuts (auto) (2.0-8.3) x10*3/uL Absolute Nucleated RBC (0.0-0.012) X10*3/uL Nucleated RBC % (auto) (0.0-0.2) /100WBC Sodium (135-145) mmol/L Potassium (3.3-5.1) mmol/L Chloride (96-108) mmol/L Carbon Dioxide (22-29) mmol/L Anion Gap (12-20) BUN (9-16) mg/dL Creatinine (0.5-1.4) mg/dL Estim Creat Clear Calc Estimated GFR POC Glucose 114 (60-115) mg/dL Random Glucose (60-115) mg/dL Calcium (8.4-10.2) mg/dL Total Bilirubin (0.0-1.0) mg/dL AST (5-31) U/L ALT (0-31) U/L Alkaline Phosphatase (39-117) U/L Total Protein (6.5-8.0) g/dL Albumin (3.5-5.0) g/dL Urine Color Urine Appearance Urine pH (5.0-9.0) Ur Specific [place] (1.005-1.025) Urine Protein (Neg-Trace) mg/dL Urine Glucose (UA) (Negative) mg/dL Urine Ketones (Negative) mg/dL Urine Blood (Negative) Urine Nitrite (Negative) Ur Leukocyte Esterase (Negative) Urine RBC (0-2) /HPF Urine WBC (0-5) /HPF Ur Squamous Epith Cells (0-2) /HPF Urine Bacteria (None Seen) Hyaline Casts (0-2) /LPF Salicylates (15-30) mg/dL Urine Opiates Screen (Not Detect) Urine Fentanyl Screen (Not Detect) Acetaminophen (<30) mcg/mL Ur Barbiturates Screen (Not Detect) Ur Phencyclidine Scrn (Not Detect) Ur Amphetamines Screen (Not Detect) U Benzodiazepines Scrn (Not Detect) Urine Cocaine Screen (Not Detect) U Marijuana (THC) Screen (Not Detect) Ethyl Alcohol mg/dL COVID-19 (BECCA) (Negative) COVID-19 Clin Com Independent Interpretation I performed an independent interpretation of an: EKG (Normal sinus rhythm. Ventricular rate 93. NJ interval 156. QRS 94. QTC 457. Negative STEMI) Discharge Plan Discharge Clinical Impression: MDD (major depressive disorder) Patient Disposition: Admitted As Inpatient Interventions: [place]-Suicide Risk Severity Scale Last Done: 12/22/22 15:24 Admission Worksheet (ED) Last Done: 12/22/22 22:24 Discharge Date/Time: 12/22/22 22:25
--- NOTE | 2022-12-22 20:42 | HE.PHANOTE ---
RE: insulin Spoke to patient regarding insulin dosing, stated she takes 66 units of levemir. When asked if she takes at morning or night she said whenever I think of it, I asked her whether she remembers more during the day or at night and she said in the evening. Also noted that her short acting insulin is on a sliding scale for meal time
[2022-12-22 21:00] VITALS: BP 134/83; PULSE 95; RESP 16; TEMP 36; O2SAT 96; BMI 30.7
[2022-12-22 22:40] LABS: Glucose, Whole Blood 191 mg/dL (60-115)
[2022-12-22] MEDS: Insulin Glargine,Hum.rec.anlog 100 UNIT/ML 10 ML VIAL 66 UNIT SUBCUT ×2 (23:26→23:28)
[2022-12-22] MEDS: traZODone HCL 50 MG TABLET PO (23:27)
--- NOTE | 2022-12-23 02:15 | PC.ADMIT ---
pt arrived at 2114 via wheelchair from crisis pod in the ED. pt. is an 82 year old female who lives alone in a senior housing apartment located in [place]. she has 5 hours of nursing services which provided a means to obtain groceries and clean the apartment. pt states that she is legally blind. she is suffering from macular degeneration. unfortunately she is also an insulin dependent diabetic. she states that her financisl sales planner was visiting earlier today and that she made statements that she wanted to end her life. she stated that she wanter to blow her head off with a gun. concerned for dennis the manager financial systems contacted EMS who transported dennis to ED for a crisis evaluation. pt states that she uses a walker for mobility and that she fell 3 days ago and landed on her buttocks. she states that she experiences situational stress in her life. especially since there is a two year anniversary of her sons . she states that her son was driving an [address] [place] visible skin surfaces intact.. no edema.resp effort is regular unlabored. hemodynamically stable. visible skin surfaces intact. no edema. resp effort is regular unlabored and suffered a massive heart attack that caused him to leave the roadway and he collided with car killing all the occupants of both vehicles. . pt also states that her daughter in 2006 from a brain tumor. all her children are . she feels that these past events are effecting her will to live.. pt is pleasant/soft spoken/some of her conversation can be quite animated. abdomen obese soft nontender. experienced normal brown bm this am. hx of previous cholcystectomy, appendectomy and hysterectomy. abdomen obese and soft.normal bm this am.pt had a u/a and alexis completed in the ed which were clean. pt wears pullups due to dribblingpt signed a three day
[2022-12-23 06:00] VITALS: BP 126/60; PULSE 94; RESP 17; TEMP 35.9; O2SAT 96
[2022-12-23] MEDS: Omeprazole 20 MG CAPSULE.DR PO (06:07)
[2022-12-23 08:03] LABS: Glucose, Whole Blood 134 mg/dL (60-115)
[2022-12-23 08:26] LABS: Estimated Average Glucose 160 mg/dL; Hemoglobin A1c % 7.2 %
[2022-12-23 08:41] LABS: Cholesterol 163 mg/dL; HDL Cholesterol 35 mg/dL; LDL Cholesterol Calculated 86 mg/dl; Triglycerides 214 mg/dL
[2022-12-23] MEDS: FLUoxetine HCl 20 MG CAPSULE 40 MG PO (08:58)
[2022-12-23] MEDS: metFORMIN HCl ER 500 MG TAB.ER.24H PO ×2 (08:59→20:21)
[2022-12-23] MEDS: Furosemide 40 MG TABLET PO (08:59)
[2022-12-23] MEDS: lisinopriL 40 MG TABLET PO (09:00)
[2022-12-23 09:11] LABS: Free T4 (Free Thyroxine) 0.86 ng/dL (0.71-1.85); Thyroid Stimulating Hormone 7.33 uIU/mL (0.32-4.0); Vitamin B12 413 pg/mL (200-900)
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
[2022-12-23 11:44] LABS: Glucose, Whole Blood 187 mg/dL (60-115)
[2022-12-23] MEDS: buPROPion HCl XL 150 MG TAB.ER.24H 450 MG PO (12:10)
[2022-12-23] MEDS: Insulin Lispro 100 UNIT/ML 3 ML VIAL SUBCUT (12:10)
[2022-12-23 16:23] LABS: Glucose, Whole Blood 114 mg/dL (60-115)
[2022-12-23 18:00] VITALS: BP 118/56; PULSE 96; RESP 17; TEMP 36.1; O2SAT 92
[2022-12-23 20:02] LABS: Glucose, Whole Blood 108 mg/dL (60-115)
[2022-12-23] MEDS: Atorvastatin Calcium 10 MG TABLET PO (20:20)
[2022-12-24] MEDS: Omeprazole 20 MG CAPSULE.DR PO (06:05)
[2022-12-24] MEDS: Levothyroxine Sodium 25 MCG TABLET PO (06:05)
[2022-12-24 07:59] LABS: Glucose, Whole Blood 151 mg/dL (60-115)
[2022-12-24 08:19] VITALS: BP 146/66; PULSE 95; RESP 18; TEMP 36.3; O2SAT 96
[2022-12-24] MEDS: FLUoxetine HCl 20 MG CAPSULE 40 MG PO (08:50)
[2022-12-24] MEDS: buPROPion HCl XL 300 MG TAB.ER.24H PO (08:50)
[2022-12-24] MEDS: metFORMIN HCl ER 500 MG TAB.ER.24H PO ×2 (08:51→21:10)
[2022-12-24] MEDS: lisinopriL 40 MG TABLET PO (08:51)
[2022-12-24] MEDS: Furosemide 40 MG TABLET PO (08:51)
[2022-12-24] MEDS: Insulin Lispro 100 UNIT/ML 3 ML VIAL SUBCUT ×2 (08:53→21:10)
[2022-12-24 12:02] LABS: Glucose, Whole Blood 101 mg/dL (60-115)
[2022-12-24 16:34] LABS: Glucose, Whole Blood 138 mg/dL (60-115)
--- NOTE | 2022-12-24 16:59 | P.PNPSI_ITS ---
Subjective Subjective Date of Service: 12/24/22 Reason For Visit: SI/ depression Subjective Notes: Conditional Voluntary Interim History: Pt reports doing well. She took shower. She slept through the night and has been visible, social with select peers. She is seen smiling and socializing. Pt denies suicidal or homicidal ideation. She reports feeling less frustrated, less overwhelmed. No behavioral concerns. Plan for d/c tomorrow. Medication Compliance: Yes Side effects from medications: No Review of Systems Review of Systems Pt denies SOB, chest pain, no constipation, no loose stools. No nausea, no vomiting Yes all other systems are reviewed and are negative Mental Status Exam Mental Status Exam Narrative: Appearance: MO, wearing hospital gown, slightly disheveled, in NAD Behavior: cooperative Psychomotor: no agitation or retardation noted Speech: clear, normal rate/rhythm, hyperverbal but not pressured, spontaneous TP: circumstantial TC: no signs of psychosis, adamantly denies SI or plan or intent Mood: okay Affect: congruent SI: denies HI: denies VH/AH: none delusions: none Insight/judgment: fair x 2. Memory/cog: alert, oriented x 3. do suspect underlying cognitive impairment but not formally tested, pending MOCA. Diagnostics Vital Signs (24Hr): Vital Signs - 24 hr 12/23/22 18:00 12/24/22 08:19 Temperature 96.9 F 97.3 F Pulse Rate 96 95 Respiratory Rate 17 18 Blood Pressure 118/56 L 146/66 H Pulse Oximetry 92 96 Oxygen Delivery Method Room Air Room Air BMI result Body Mass Index 30.7 Labs 12/22/22 16:28 12/22/22 16:28 Labs: Laboratory Results - last 48 hr 12/22/22 12/22/22 12/22/22 16:28 17:21 22:34 POC Glucose 114 191 H Estimat Average Glucose Hemoglobin A1c % Triglycerides Cholesterol LDL Cholesterol, Calc HDL Cholesterol Vitamin B12 Folate TSH Free T4 COVID-19 ([facility]) Negative COVID-19 Clin Com See Note 12/23/22 12/23/22 12/23/22 07:46 07:46 08:00 POC Glucose 134 H Estimat Average Glucose 160 Hemoglobin A1c % 7.2 Triglycerides 214 Cholesterol 163 LDL Cholesterol, Calc 86 HDL Cholesterol 35 Vitamin B12 413 Folate 15.0 TSH 7.33 H Free T4 0.86 COVID-19 ([facility]) COVID-19 Clin Com 12/23/22 12/23/22 12/23/22 11:40 16:20 19:44 POC Glucose 187 H 114 108 Estimat Average Glucose Hemoglobin A1c % Triglycerides Cholesterol LDL Cholesterol, Calc HDL Cholesterol Vitamin B12 Folate TSH Free T4 COVID-19 ([facility]) COVID-19 Clin Com 12/24/22 12/24/22 12/24/22 07:48 11:57 16:22 POC Glucose 151 H 101 138 H Estimat Average Glucose Hemoglobin A1c % Triglycerides Cholesterol LDL Cholesterol, Calc HDL Cholesterol Vitamin B12 Folate TSH Free T4 COVID-19 ([facility]) COVID-19 Clin Com Medications Medications Current Medications Acetaminophen (Acetaminophen 325 Mg Tablet) 650 mg PO Q6H PRN PRN Reason: Headache/Pain Mild Scale (1-3) Al Hydroxide/Mg Hydroxide (Magnesium Hydrox/Alum Hydrox 30 Ml Oral.Susp) 30 ml PO Q6H PRN PRN Reason: Heartburn/Nausea Atorvastatin Calcium (Atorvastatin Calcium 10 Mg Tablet) 10 mg PO BEDTIME [facility] Last Admin: 12/23/22 20:20 Dose: 10 mg Bupropion HCl (Bupropion Hcl Xl 300 Mg Tab.Er.24h) 300 mg PO DAILY [facility] Last Admin: 12/24/22 08:50 Dose: 300 mg Fluoxetine HCl (Fluoxetine Hcl 20 Mg Capsule) 40 mg PO DAILY [facility] Last Admin: 12/24/22 08:50 Dose: 40 mg Furosemide (Furosemide 40 Mg Tablet) 40 mg PO DAILY [facility]; Protocol Last Admin: 12/24/22 08:51 Dose: 40 mg Insulin Glargine (Insulin Glargine,Hum.Rec.Anlog 100 Unit/Ml 10 Ml Vial) 66 unit SUBCUT BEDTIME [facility] Last Admin: 12/22/22 23:28 Dose: 66 unit Insulin Human Lispro (Insulin Lispro 100 Unit/Ml 3 Ml Vial) 0 unit SUBCUT QIDACHS [facility]; Protocol Last Admin: 12/24/22 16:57 Dose: Not Given Levothyroxine Sodium (Levothyroxine Sodium 25 Mcg Tablet) 25 mcg PO DAILY@0600 [facility] Last Admin: 12/24/22 06:05 Dose: 25 mcg Lisinopril (Lisinopril 40 Mg Tablet) 40 mg PO DAILY [facility]; Protocol Last Admin: 12/24/22 08:51 Dose: 40 mg Magnesium Hydroxide (Milk Of Magnesia 30 Ml Oral.Susp) 30 ml PO DAILY PRN PRN Reason: Constipation Metformin HCl (Metformin Hcl Er 500 Mg Tab.Er.24h) 500 mg PO BID [facility] Last Admin: 12/24/22 08:51 Dose: 500 mg Omeprazole (Omeprazole 20 Mg Capsule.Dr) 20 mg PO DAILY@0630 [facility] Last Admin: 12/24/22 06:05 Dose: 20 mg Trazodone HCl (Trazodone Hcl 50 Mg Tablet) 50 mg PO BEDTIME PRN PRN Reason: Insomnia Allergies Allergies Allergy/AdvReac Type Severity Reaction Status Date / Time bee pollen [BEE STINGS] Allergy Unknown UNKNOWN Verified 09/13/21 12:11 morphine [MORPHINE] Allergy Unknown UNKNOWN Verified 09/13/21 12:11 Penicillins [PENICILLINS] Allergy Unknown UNKNOWN Verified 09/13/21 12:11 Assessment & Plan Assessment & Plan (1) MDD (major depressive disorder), recurrent episode, moderate: Status: Acute Code(s): F33.1 - Major depressive disorder, recurrent, moderate Plan Ms. Jules is a 82 year-old woman with hx of MDD, trauma, who reported to her repayee suicidal ideation with plan to either shoot herself or stab herself with a knife. On the unit, pt reports she was venting but did not mean to hurt herself. She reports life long hx of depression that seems to steam from extensive trauma throughout her life. PLAN 1. admit to S1, CV, 15 minutes checks for safety. 2. Medical: Labs remarkable- for TSH 7.33, T4 0.86--> will start levothyroxine 25mcg po daily -CBC chronic leukocytosis -Head CT from 11/25/2022 showed mass right temporal occipital region 2.5cm, likely meningioma- recommendation to follow up with MRI w/wo gadolinium for further characterization, which pt reports she was not aware of. Will order MRI w/wo constrast. 3. continue prozac. pt does not remember if she was taking wellbutrin or not. wi ll lower to 300mg po daily- 450mg po daily may be too high of a dose. 4. Obtain collateral information 5. Aftercare planning. 6. complete moca/acl. 12/24 continue tx. Reason for continued inpatient stay Substantial Risk for: stable for discharge Time Spent With Patient Time: Total time managing care of this patient today ____ minutes.
[2022-12-24 19:51] LABS: Glucose, Whole Blood 176 mg/dL (60-115)
[2022-12-24 19:55] VITALS: BP 111/66; PULSE 101; RESP 18; TEMP 36.1; O2SAT 99
[2022-12-24] MEDS: Atorvastatin Calcium 10 MG TABLET PO (21:10)
[2022-12-24] MEDS: Insulin Glargine,Hum.rec.anlog 100 UNIT/ML 10 ML VIAL 66 UNIT SUBCUT (21:16)
[2022-12-25] MEDS: Omeprazole 20 MG CAPSULE.DR PO (05:29)
[2022-12-25] MEDS: Levothyroxine Sodium 25 MCG TABLET PO (05:29)
[2022-12-25 08:00] VITALS: BP 175/80; PULSE 95; RESP 18; TEMP 36.8; O2SAT 97
[2022-12-25] MEDS: buPROPion HCl XL 300 MG TAB.ER.24H PO (08:40)
[2022-12-25] MEDS: lisinopriL 40 MG TABLET PO (08:40)
[2022-12-25] MEDS: metFORMIN HCl ER 500 MG TAB.ER.24H PO (08:41)
[2022-12-25] MEDS: FLUoxetine HCl 20 MG CAPSULE 40 MG PO (08:41)
[2022-12-25] MEDS: Furosemide 40 MG TABLET PO (08:41)
[2022-12-25 09:00] LABS: Glucose, Whole Blood 76 mg/dL (60-115)
[2022-12-25] MEDS: Famotidine 20 MG TABLET PO (10:02)
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
== END 2022-12-25 11:00 | disposition home or self-care (01) | DRG 885 ==
LOC: HO.ED 16:58 → HO.PGERI 21:50
PROVIDERS: Admitting Provider Psychiatry & Neurology Psychiatry; Emergency Provider Internal Medicine; Visit Provider Psychiatry & Neurology Psychiatry
DX: F33.1 Major depressive disorder, recurrent, moderate (principal); R45.851 Suicidal ideations; Z20.822 Contact with and (suspected) exposure to COVID-19; Z88.0 Allergy status to penicillin; Z88.5 Allergy status to narcotic agent; Z79.4 Long term (current) use of insulin; Z79.84 Long term (current) use of oral hypoglycemic drugs; Z79.899 Other long term (current) drug therapy
CPT/HCPCS: 36415; 80053; 80061; 80143; 80179; 80307; 81001; 82607; 82746; 82947; 83036; 84439; 84443; 85025; 87635; 93005; 99285

== ENCOUNTER 2023-07-10 14:41 | Emergency (ER) | payer MEDICARE, SELFPAY ==
--- NOTE | ~2023-07-10 | CT_ITS ---
EXAMINATION: CT ABDOMEN AND PELVIS WITHOUT CONTRAST CLINICAL INFORMATION: Epigastric and right upper quadrant pain COMPARISON: 11/25/2021 TECHNIQUE: Multidetector volumetric imaging was performed from the superior aspect of the liver through the pubic symphysis. Sagittal and coronal reformatted images were obtained on the technologist's workstation. This CT examination was performed using dose optimization techniques as appropriate, variously including the following: *Automated exposure control *Adjustment of mA and/or kV according to patient size (this includes techniques or standardized protocols for targeted exams where dose is matched to indication/reason for exam; i.e. extremities or head) *Use of iterative reconstruction technique DLP: 539 mGy-cm FINDINGS: LUNG BASES: The visualized lung bases are unremarkable. Moderate sized axial type hiatus hernia. LIVER, GALLBLADDER, AND BILIARY TREE: The liver is normal in size, shape, and attenuation. No focal hepatic lesion or biliary ductal dilatation is present. The gallbladder is unremarkable with no evidence of radiopaque gallstones, gallbladder wall thickening, or obvious pericholecystic inflammatory changes. PANCREAS: Unremarkable. SPLEEN: Unremarkable. ADRENAL GLANDS: Low-density left adrenal lesion stable. KIDNEYS AND URETERS: Renal cortical cysts bilaterally stable. The kidneys are normal in size, shape, and attenuation. No hydronephrosis, hydroureter, or calculi seen. No perinephric stranding. BLADDER: Unremarkable. GASTROINTESTINAL TRACT: Relatively severe diverticulosis throughout the sigmoid colon in particular. No definite acute inflammatory changes discernible. No small bowel pathology. Cecal base unremarkable. Nonspecific thickening of the gastric wall. Normal emptying seen. ABDOMINAL WALL: There is evidence for previous surgery. No hernia. LYMPH NODES: Normal. VASCULAR: Unremarkable. PELVIC VISCERA: Left-sided ovarian cyst unchanged. Measures up to 5.2 cm. OSSEOUS STRUCTURES: Severe spondylosis throughout the lumbar spine. CT/CT abdomen pelvis wo IV con IMPRESSION: 1. Nonspecific gastric wall thickening. Consider endoscopic assessment. 2. Stable left-sided ovarian cyst. 3. Stable left adrenal lesion. 4. Moderate-sized hiatus hernia. Fleischner guidelines were followed. Findings likely represent a probable benign ovarian cyst. Recommend followup ultrasonography in 3-6 months.
[2023-07-10 14:51] VITALS: BP 123/86; BP 153/76; PULSE 87; PULSE 89; RESP 20; TEMP 36.4; O2SAT 97; O2SAT 98; BMI 26.4
[2023-07-10 15:10] VITALS: BP 139/73; PULSE 89
--- NOTE | 2023-07-10 15:10 | ECG_ITS ---
Test Reason : NAUSEA/VOMITING Blood Pressure : / mmHG Vent. Rate : 089 BPM Atrial Rate : 089 BPM P-R Int : 154 ms QRS Dur : 098 ms QT Int : 418 ms P-R-T Axes : 073 044 026 degrees QTc Int : 508 ms Normal sinus rhythm Prolonged QT Abnormal ECG When compared with ECG of 22-DEC-2022 16:06, QT has lengthened Referred By: Karely Chew Electronically Signed By:ROYER OSBORNE MD
--- NOTE | 2023-07-10 15:10 | ED.NAVMDI ---
HPI - Nausea/Vomiting/Diarrhea General Chief complaint: Nausea/Vomiting/Diarrhea Stated complaint: NAUSEA VOMITING DIARRHEA SINCE AM Time Seen by Provider: 07/10/23 14:51 Source: patient, EMS, RN notes reviewed and old records reviewed Mode of arrival: EMS History of Present Illness HPI Narrative: 83-year-old female with a past medical history of diabetes, depression, presenting to the ED via EMS complaining of upper abdominal pain, nausea, vomiting, nonbloody diarrhea x today. Patient reported to nursing her POC was low this morning and she has increased stressors this time of year. Denies fever, chills, dysuria/hematuria, flank pain, suspicious food intake, recent antibiotic use, recent travel, sick contacts, CP/SOB MD elicited complaint: nausea, vomiting, diarrhea and abdominal pain Related Data Home Medications Medication Instructions Recorded Confirmed insulin detemir U-100 100 unit/mL 66 unit subcut BEDTIME 12/22/22 12/22/22 (3 mL) subcutaneous pen (Levemir FlexPen) metformin 500 mg tablet,extended 500 mg PO BID 12/22/22 12/22/22 release 24 hr Previous Rx's Medication Instructions Recorded atorvastatin 10 mg tablet 10 mg PO BEDTIME #30 tabs 12/25/22 fluoxetine 40 mg capsule 40 mg PO DAILY #0 caps 12/25/22 fluoxetine 40 mg capsule 40 mg PO DAILY #30 caps 12/25/22 furosemide 40 mg tablet 40 mg PO DAILY #0 tabs 12/25/22 lisinopril 40 mg tablet 40 mg PO DAILY #30 tabs 12/25/22 omeprazole 20 mg capsule,delayed 20 mg PO DAILY@0630 #0 caps 12/25/22 release Allergies Allergy/AdvReac Type Severity Reaction Status Date / Time bee pollen [BEE STINGS] Allergy Unknown UNKNOWN Verified 09/13/21 12:11 morphine [MORPHINE] Allergy Unknown UNKNOWN Verified 09/13/21 12:11 Penicillins [PENICILLINS] Allergy Unknown UNKNOWN Verified 09/13/21 12:11 Review of Systems Review of Systems: Constitutional: No Fever, No Chills, No Fatigue, No Malaise ENT/Mouth: No Ear Pain, No Nasal Congestion, No sore throat, No Rhinorrhea, No Swallowing Difficulty Eyes: No Eye Pain, No Swelling, No Redness, No Vision Changes Cardiovascular: No Chest Pain, No SOB, No Edema, No Palpitations Respiratory: No Cough, No Sputum, No Dyspnea Gastrointestinal: +Nausea, + Vomiting, +Diarrhea, No Constipation, + Abdominal pain, No Hematochezia, No Melena Genitourinary: No Dysuria, No Urinary Frequency, No Hematuria, No Flank Pain Musculoskeletal: No joint pain, No Myalgias, No Joint Swelling Skin: No Skin Lesions, No rash Neuro: No Weakness, No Dizziness, No Headache Psych: No Anxiety/Panic, No Depression, +Social Issues Yes all other systems are reviewed and are negative Constitutional: Constitutional: Reports as per [facility] Past Medical History Attestation statement: The following information was validated with the patient. Source: old records reviewed Social History Social History Household Members: None Housing: Apartment Do you presently have visiting nurse or other home services: Yes Alcohol intake: never Comment: Red wrist band on. Patient Tobacco Use Status: Never used Tobacco Smoked in Last 30 Days: No e-Cigarette/Vaping Use: Never Used Use of substances other than those prescribed or required for medical reasons: No Advance Directives: No Advance Directives Information Provided: No service: No Sexual orientation: Straight/Heterosexual Physical Exam Vital Signs: Vital Signs: Last Vital Signs Temp 98.1 F 07/10/23 18:43 Pulse 103 H 07/10/23 18:43 Resp 20 07/10/23 18:43 BP 143/74 H 07/10/23 18:43 Pulse Ox 95 07/10/23 18:43 O2 Del Method Room Air 07/10/23 18:43 BMI result Body Mass Index 26.4 Const: General: cooperative, no acute distress, alert and awake Orientation/consciousness: patient oriented x3 Limitations: no limitations HEENT: Head: Yes normal to inspection and Yes atraumatic Ears: hearing grossly normal bilaterally General nose exam: Normal external nose present Face and sinus: Yes normal facial exam Eyes: General: appearance normal, both eyes and all related structures EOM: EOMs intact bilaterally Neck: Neck: Yes normal visual inspection and Yes no meningeal signs Resp: Effort & Inspection: normal respiratory effort and no respiratory distress Auscultation: clear to auscultation bilaterally and no wheezes Cardio: Rate: regular rate Heart sounds: S1 normal heart sound present and S2 normal heart sound present GI: Other: Old surgical scar noted Palpation (GI): Soft to palpation, Tenderness to palpation present (GI) in the epigastrum and in the RUQ, no guarding and not rigid : General: Yes no CVA tenderness Back/Spine/Pelvis: Back: no CVA tenderness Skin: Rashes: no rashes Wounds: no wounds Neuro: General: patient oriented x3, tone normal and no meningeal signs Cranial nerves: Yes CN's II-XII intact bilaterally Gait exam (Neuro): Normal gait present Extrem: General: Yes normal to inspection Course Course Course Narrative: -orthostatic vital signs negative -1630--ED care transferred to [facility] Cavazos pending labs, UA, viral testing, CT AP and p.o. challenge Reevaluation(s) Reevaluation #1: Patient was given to me pending UA, labs, viral testing, CT scan, and p.o. challenge. Patient hypoglycemic at 59, was able to eat and drink now glucose improved to 111. Patient had mild leukocytosis at 15.5, likely reactive given vomiting. UA is not an infectious. Slight bump in creatinine from baseline, BUN around her baseline. CT scan showing nonspecific gastric wall thickening, left-sided ovarian cyst, left adrenal lesion and a moderately-sized hiatal hernia. Discussed these findings with patient. Patient states that she is feeling much better and would like to return home. She is very eager to be discharged. She is able to eat and drink without difficulty. She has no stomach pain. She is well-appearing Given return precautions. Patient understands and agrees with plan. Given GI follow-up for hiatal hernia, nonspecific gastric wall thickening advised to follow-up if her symptoms persist.. Patient stable for discharge. Time: 18:10 Medications Administered Discontinued Medications Generic Name Dose Route Start Last Admin Trade Name Freq PRN Reason Stop Dose Admin Metoclopramide HCl 10 mg 07/10/23 15:18 07/10/23 15:52 Metoclopramide Hcl 10 Mg/2 Ml Vial IVPUSH 07/10/23 15:19 10 mg ONCE ONE Administration Medical Decision Making Medical Decision Making [facility] Narrative: 83-year-old female with a past medical history of diabetes, depression, presenting to the ED via EMS complaining of upper abdominal pain, nausea, vomiting, nonbloody diarrhea x today. On exam vital signs stable, NAD, nontoxic appearing, abdomen soft with epigastric/RUQ tenderness, no rebound or guarding, lungs CTA. Concern for gastroenteritis vs food poisoning vs metabolic/infectious etiologies vs stress response vs pancreatitis. Lower suspicion for appendicitis/diverticulitis or renal stone/pyelo/UTI. Symptoms atypical for ACS Plan: EKG, labs, UA, CT AP, IVF, re-evaluate Please refer to course for remaining clinical decision making, interpretation of labs/imaging results, and discussions with consultants and/or family members. Differential Diagnosis Differential Diagnoses: The differential diagnosis associated with the presentation includes As above Admission/Observation Consideration of admission/observation: Escalation of care including admission/observation considered Lab Data MDM Lab Attestation statement: I reviewed the patient's lab results. See MDM/course 07/10/23 15:50 07/10/23 15:50 Labs: Lab Results 07/10/23 07/10/23 07/10/23 Range/Units 15:50 16:06 16:56 WBC 15.2 H (4.8-10.8) X10*3/uL RBC 4.99 (4.20-5.50) X10*6/uL Hgb 13.0 (12.0-16.0) g/dl Hct 41.5 (37.0-47.0) % MCV 83.2 (80.0-98.0) fL MCH 26.1 L (27.0-33.0) pg MCHC 31.3 (31.0-35.0) g/dl RDW 14.9 (11.0-16.0) % Plt Count 609 H (160-400) X10*3/uL MPV 9.4 (9.4-12.3) fL Immature Gran % (Auto) 0.3 (0.0-0.4) % Neut % (Auto) 87.0 H (45-73) % Lymph % (Auto) 9.1 L (20-40) % [place] % (Auto) 2.5 (2-11) % Eos % (Auto) 0.7 (0-4) % Baso % (Auto) 0.4 (0-2) % Lymph # (Auto) 1.4 (1.2-4.9) X10*3/uL [place] # (Auto) 0.4 (0.1-1.2) X10*3/uL Eos # (Auto) 0.1 (0.0-0.4) X10*3/uL Baso # (Auto) 0.1 (0.0-0.2) X10*3/uL Abs Immat Gran (auto) 0.05 H (0.00-0.03) X10*3/uL Absolute Neuts (auto) 13.3 H (2.0-8.3) x10*3/uL Absolute Nucleated RBC 0.000 (0.0-0.012) X10*3/uL Nucleated RBC % (auto) 0.0 (0.0-0.2) /100WBC Sodium 143 (135-145) mmol/L Potassium 3.7 (3.3-5.1) mmol/L Chloride 104 (96-108) mmol/L Carbon Dioxide 26 (22-29) mmol/L Anion Gap 17 (12-20) BUN 25 H (9-16) mg/dL Creatinine 1.21 (0.5-1.4) mg/dL Estim Creat Clear Calc 36.2 Estimated GFR 43 POC Glucose 111 (60-115) mg/dL Random Glucose 59 L* (60-115) mg/dL Calcium 10.1 (8.4-10.2) mg/dL Magnesium 1.9 (1.6-2.6) mg/dL Total Bilirubin 0.2 (0.0-1.0) mg/dL Direct Bilirubin < 0.2 (0.0-0.5) mg/dL AST 18 (5-31) U/L ALT 15 (0-31) U/L Alkaline Phosphatase 67 (39-117) U/L Troponin I High Sens < 2.7 (<3.5-17.0) ng/L Total Protein 7.9 (6.5-8.0) g/dL Albumin 4.0 (3.5-5.0) g/dL Lipase 44 (8-78) U/L Urine Color Dark Yellow Urine Appearance Clear Urine pH 5.5 (5.0-9.0) Ur Specific [place] 1.010 (1.005-1.025) Urine Protein Negative (Neg-Trace) mg/dL Urine Glucose (UA) Negative (Negative) mg/dL Urine Ketones Negative (Negative) mg/dL Urine Blood Negative (Negative) Urine Nitrite Negative (Negative) Ur Leukocyte Esterase Negative (Negative) Influenza Type A (PCR) NEGATIVE (Negative) Influenza Type B (PCR) NEGATIVE (Negative) RSV RNA Qual (PCR) NEGATIVE (Negative) SARS-CoV-2 RNA (RT-PCR) NEGATIVE (Negative) Independent Interpretation I performed an independent interpretation of an: EKG (My interpretation EKG normal sinus rhythm rate of 89. Pr interval 154. QTC 508. QT has lengthened when compared to prior. No STEMI) Radiology Impression Discussion of test interpretation with radiology: I have reviewed the radiologist's reading. Radiologist Impression: EXAMINATION: CT ABDOMEN AND PELVIS WITHOUT CONTRAST CLINICAL INFORMATION: Epigastric and right upper quadrant pain COMPARISON: 11/25/2021 TECHNIQUE: Multidetector volumetric imaging was performed from the superior aspect of the liver through the pubic symphysis. Sagittal and coronal reformatted images were obtained on the technologist's workstation. This CT examination was performed using dose optimization techniques as appropriate, variously including the following: *Automated exposure control *Adjustment of mA and/or kV according to patient size (this includes techniques or standardized protocols for targeted exams where dose is matched to indication/reason for exam; i.e. extremities or head) *Use of iterative reconstruction technique DLP: 539 mGy-cm FINDINGS: LUNG BASES: The visualized lung bases are unremarkable. Moderate sized axial type hiatus hernia. LIVER, GALLBLADDER, AND BILIARY TREE: The liver is normal in size, shape, and attenuation. No focal hepatic lesion or biliary ductal dilatation is present. The gallbladder is unremarkable with no evidence of radiopaque gallstones, gallbladder wall thickening, or obvious pericholecystic inflammatory changes. PANCREAS: Unremarkable. SPLEEN: Unremarkable. ADRENAL GLANDS: Low-density left adrenal lesion stable. KIDNEYS AND URETERS: Renal cortical cysts bilaterally stable. The kidneys are normal in size, shape, and attenuation. No hydronephrosis, hydroureter, or calculi seen. No perinephric stranding. BLADDER: Unremarkable. GASTROINTESTINAL TRACT: Relatively severe diverticulosis throughout the sigmoid colon in particular. No definite acute inflammatory changes discernible. No small bowel pathology. Cecal base unremarkable. Nonspecific thickening of the gastric wall. Normal emptying seen. ABDOMINAL WALL: There is evidence for previous surgery. No hernia. LYMPH NODES: Normal. VASCULAR: Unremarkable. PELVIC VISCERA: Left-sided ovarian cyst unchanged. Measures up to 5.2 cm. OSSEOUS STRUCTURES: Severe spondylosis throughout the lumbar spine. CT/CT abdomen pelvis wo IV con IMPRESSION: 1. Nonspecific gastric wall thickening. Consider endoscopic assessment. 2. Stable left-sided ovarian cyst. 3. Stable left adrenal lesion. 4. Moderate-sized hiatus hernia. Fleischner guidelines were followed. Findings likely represent a probable benign ovarian cyst. Recommend followup ultrasonography in 3-6 months. Independent Historian Clinical information obtained from an independent historian. History obtained from or confirmed by: EMS External Record Review External record reviewed: Inpatient record, Office record, Outpatient record, Prior outpatient labs, Prior outpatient radiology, Primary care record and Outside ED record Tests considered The following testing was considered but not selected: As above Chronic Conditions Patient?s care impacted by: Other Social Determinants Patient?s care significantly limited by Social Determinants of Health including: Problems related to primary support group Discharge Plan Discharge Clinical Impression: Acute upper abdominal pain, Nausea, vomiting, and diarrhea Patient Disposition: Home, Self-Care Additional Instructions: Your workup today was reassuring. Your glucose level was low, which improved after receiving food. Your CT scan did show some irritation to your stomach, which may be caused by her symptoms. I am giving you a GI follow-up if your symptoms persist. They also noted a left ovarian cyst, a left adrenal lesion,and a moderately-sized hiatal hernia. Drink plenty of fluids get plenty of rest. You tested negative for flu, RSV, and COVID. If any new or worsening symptoms occur, including but not limited to chest pain, shortness breast, abdominal pain, worsening nausea vomiting, please return for re-evaluation. Prescriptions: No Action metformin 500 mg tablet extended release 24 hr 500 mg PO BID Levemir FlexPen 100 unit/mL (3 mL) insulin pen 66 unit subcut BEDTIME fluoxetine 40 mg capsule 40 mg PO DAILY Qty: 0 0RF furosemide 40 mg Tablet 40 mg PO DAILY Qty: 0 0RF Protocol: Hold for SBP< HOLD for SBP < : 90 omeprazole 20 mg Capsule,Delayed Release(Dr/Ec) 20 mg PO DAILY@0630 Qty: 0 0RF atorvastatin 10 mg Tablet 10 mg PO BEDTIME Qty: 30 0RF lisinopril 40 mg Tablet 40 mg PO DAILY Qty: 30 0RF Protocol: Hold for SBP< HOLD for SBP < : 90 fluoxetine 40 mg capsule 40 mg PO DAILY Qty: 30 0RF [place]: [facility] [place]Provider Group] Interventions: ED Discharge Assessment Last Done: 07/10/23 19:24 Discharge Date/Time: 07/10/23 19:27
[2023-07-10 15:27] VITALS: BP 137/74; PULSE 87
[2023-07-10 15:28] VITALS: BP 134/71; PULSE 102
[2023-07-10 15:33] VITALS: BP 134/71; PULSE 102; RESP 15; TEMP 36.5; O2SAT 100
[2023-07-10] MEDS: Metoclopramide HCl 10 MG/2 ML VIAL IVPUSH (15:52)
[2023-07-10 15:56] LABS: MANUAL DIFF FLAG NO
--- OUTSIDE RECORDS SUMMARY | 2023-07-10 16:06 | XMS_ITS | Continuity of Care Document ---
Author Name Unknown Organization [facility] Serj[place] lt Address [address] [place] [address]- Care Team Providers Care Exhibit Specialist Name Role Phone Georgie FREEMAN, Ezequiel Chino Primary Care Physician [place] [facility] [place] 06/05/23 - 07/05/23 [facility] Adult [address] [place] [address]- Allergies, Adverse Reactions, Alerts Substance Reaction Severity Status morphine anaflactic shock Active penicillins anaflactic shock Active Immunizations Given and Recorded Vaccine Date Status Refusal Reason [id number] 12y+ bivalent booster vax 11/27/22 Recorded influenza virus vaccine, inactivated 1 05/03/18 Gi adwoa influenza virus vaccine, inactivated 06/09/16 Give n influenza virus vaccine, inactivated 04/19/15 Give n tetanus/diphtheria/pertussis, acel(Tdap) 2 12/21/17 Given pneumococcal 23-valent vaccine 06/09/16 Given pneumococcal 13-valent vaccine 04/03/15 Given 1Result Comment: [05/03/2018] [facility]-[id number] 2Result Comment: [12/21/2017] [id number] Medications Anecream Topically, 3 times a day, [...] R1., # 30 tablet, 5 Refills, Maintenance, 06/05/23 20:07:00 EST, [facility], 150.5, cm, 01/16/23 10:14:00 EDT, Height Start Date: 06/05/23 Status: Ordered atorvastatin 10 mg oral tablet 1 tablet, By Mouth, Daily, R4., # 28 tablet, 5 Refills, Maintenance, 06/05/23 20:07:00 EST, [facility], 150.5, cm, 01/16/23 10:14:00 EDT, Height Start Date: 06/05/23 Status: Ordered Auto Code Talking Prodigy Meter Auto Code Talking Prodigy Meter, See Instructions, # 1 each, Refills 0, Tot. 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, 03/10/17 10:06:57, Compound Start Date: 03/10/17 Status: Ordered FLUoxetine 40 mg oral capsule 1 capsule, By Mouth, Daily, R1., # 31 capsule, 5 Refills, Maintenance, 02/10/23 6:29:00 EDT, [facility], 150.5, cm, 01/16/23 10:14:00 EDT, Height Start Date: 02/10/23 Status: Ordered FreeStyle Yasmeen 2 Monitor See Instructions, # 1 each, Maintenance, Yasmeen 2 [place] only Pt will pay soto with [employer] coupon that I faxed Use to test BS qid for E11.9 IDDM, 03/30/23 10:20:00 EDT, Supply, 150.5, cm, 01/16/23 10:14:00 EDT, Height Start Date: 03/30/23 Status: Ordered furosemide 40 mg oral tablet 1, tablet, By Mouth, Daily, ^1R1., # 30 tablet, Refills 5, Maintenance, 07/01/23 10:17:00 EST, Route to Pharmacy Electronically, [facility], 150.5, cm, 01/16/23 10:14:00 EDT, Height Start Date: 07/01/23 Status: Ordered Glucagon Emergency Kit for Low [...] PCP (MAX 87 UNITS PER... Start Date: 03/05/23 Status: Ordered Lancets for Prodigy Auto Code Talking Meter Lancets for Prodigy Auto Code Talking Meter, See Instructions, # 1 each, Refills 6, Tot. Refills 6,Maintenance, Use as directed for DM II E11.9, E11.319 to test blood sugar 6-7 times daily, 12/04/1709:33:13, Compound Start Date: 12/04/16 Status: Ordered Levemir FlexPen 100 units/mL subcutaneous solution See Instructions, INJECT 66 UNITS SUBCUTANEOUSLY (UNDER THE SKIN) EVERY EVENING ^BULK, # 24 mL, 5 Refills, Maintenance, 02/09/23 18:26:00 EDT, [facility], 150.5, cm, 01/16/23 10:14:00 EDT, Height Start Date: 02/09/23 Status: Ordered levothyroxine 0.112 mg oral tablet 1 tablet, By Mouth, Daily, # 28 tablet, 1 Refills, Maintenance, 05/18/22 15:34:00 EDT, [facility], 152.1, cm, 05/08/22 11:14:00 EDT, Height [...] oral tablet 1 tablet, By Mouth, Daily, ^1R1., # 30 tablet, 5 Refills, Maintenance, 07/01/23 10:17:00 EST, [facility], 150.5, cm, 01/16/23 10:14:00 EDT, Height Start Date: 07/01/23 Status: Ordered MetFORMIN (Eqv-Glucophage XR) 500 mg oral tablet, extended release See Instructions, TAKE 2 TABLETS BY MOUTH DAILY ^2R1, # 60 tablet, 5 Refills, Maintenance, 05/08/2314:13:00 [email or web address] 150.[facility], cm, 01/16/23 10:14:00 EDT, Height Start Date: 05/08/23 Status: Ordered Ocuvite Lutein By Mouth, Daily, 0 Refills, Maintenance, 04/03/15 13:16:39 Start Date: 04/03/15 Status: Ordered omeprazole 20 mg oral enteric coated capsule 1 capsule, By Mouth, Daily, R1., # 28 capsule, 5 Refills, Maintenance, 06/05/23 19:40:00 EST, [facility], 150.5, cm, 01/16/23 10:14:00 EDT, Height Start Date: 06/05/23 Status: Ordered one walker one walker, See [...] PAIN Start Date: 09/24/21 Status: Ordered Pen [place], 31 G x 5 mm BD Ultra Fine III See Instructions, # 120 each, Refills 2, Tot. Refills 2, Maintenance, Use four times a day DM [id number] Office visit needed for further refills, 07/21/18 7:52:12 EST, Compound Start Date: 07/21/18 Status: Ordered Reclast 5 mg/100 mL intravenous solution = 5 mg, IV Infusion, Once, infused over at least 15 minutes, # 1 each, 0 Refills, Soft Stop, 01/07/19 14:36:36 EDT Start Date: 01/07/19 Status: Ordered riboflavin 400 mg oral capsule 1 capsule = 400 mg, By Mouth, Daily, # 30 capsule, 11 Refills, Maintenance, 04/23/23 4:15:00 EDT, [facility], Partial fill upon patient request if the prescription is for a schedule II opioiddrug., 150.5, cm, 01/16/23 10:14:00 EDT, Height Start Date: 04/23/23 Status: Ordered Test Strips for Prodigy Auto [...] Start Date: 02/23/18 Status: Ordered UNIFINE PENTIPS 31G X 5MM UNIFINE PENTIPS 31G X 5MM, See Instructions, # 100 each, 5 Refills, Maintenance, DIRECTED FOUR TIMES DAILY ^BULK, 02/09/23 18:27:00 EDT, 150.5, cm, 01/16/23 10:14:00 EDT, Height Start Date: 02/09/23 Status: Ordered UNIFINE PENTIPS PLU 31G X [...] Date: 08/21/22 Status: Ordered UNIFINE PNTP MIS [id number] UNIFINE PNTP MIS [id number], See Instructions, # 100 each, 1 Refills, Maintenance, DIRECTED FOUR TIMES DAILY, 05/10/22 10:46:00 EDT, 152.1, cm, 05/08/22 11:14:00 EDT, Height Start Date: 05/10/22 Status: Ordered UNIFINE PNTP MIS [id number] UNIFINE PNTP MIS [id number], See Instructions, # 100 each, 2 Refills, [...] R1., # 28 capsule, 5 Refills, Maintenance, 07/01/23 10:15:00 EST, [facility], 150.5, cm, 01/16/23 10:14:00 EDT, Height Start Date: 07/01/23 Status: Ordered Problem List Condition Confirmation Course Effective Dates Status H ealth Status Informant Obesity (BMI 30-39.9) Confirmed Active Complicated bereavement Confirmed Active halfway current use of insulin - checks glucose [...] Care team information Care Team Personnel Name: Hardeep (Contur) Marina 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
--- OUTSIDE RECORDS SUMMARY | 2023-07-10 16:06 | XMS_ITS | Continuity of Care Document ---
Author Name Unknown Organization [facility] Serjio lt Address [address] [place] [address]- Care Team Providers Care Shoe Polisher Name Role Phone Georgie FREEMAN, Ezequiel Chino Primary Care Physician [place] [facility] [place](s): 02/23/23 - 03/25/23 [facility] Adult [address] [place] [address]- Allergies, Adverse Reactions, Alerts Substance Reaction Severity Status morphine anaflactic shock Active penicillins anaflactic shock Active Immunizations Given and Recorded Vaccine Date Status Refusal Reason [id number] 12y+ bivalent booster vax 11/27/22 Recorded influenza virus vaccine, inactivated 1 05/03/18 Gi adwoa influenza virus vaccine, inactivated 06/09/16 Give n influenza virus vaccine, inactivated 04/19/15 Give n tetanus/diphtheria/pertussis, acel(Tdap) 2 12/21/17 Given pneumococcal 23-valent vaccine 06/09/16 Given pneumococcal 13-valent vaccine 04/03/15 Given 1Result Comment: [05/03/2018] [facility]-[id number] 2Result Comment: [12/21/2017] [id number] Medications Anecream Topically, 3 times a day, [...] tablet, 5 Refills, Maintenance, 11/19/22 13:51:00 EDT, [facility], 152.1, cm, 08/22/22 10:03:00 EST, Height Start Date: 11/19/22 Status: Ordered atorvastatin 10 mg oral tablet 1 tablet, By Mouth, Daily, R4., # 28 tablet, 5 Refills, Maintenance, 11/05/22 6:36:00 EDT, [facility], 152.1, cm, 08/22/22 10:03:00 EST, Height [...] tablet, 11 Refills, Maintenance, 02/12/23 4:32:00 EDT, [facility], 150.5, cm, 01/16/23 10:14:00 EDT, Height Start Date: 02/12/23 Status: Ordered Diabetic Shoes Diabetic Shoes, See Instructions, # 1 each, Refills 1, Tot. 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 Refills 3, Maintenance, 02/09/23 18:26:00 EDT, [facility], 150.5, cm, 01/16/23 10:14:00 EDT, Height Start Date: 02/09/23 Status: Ordered Glucagon Emergency Kit for Low [...] mL, 5 Refills, Maintenance, 02/09/23 18:26:00 EDT, [facility], 150.5, cm, 01/16/23 10:14:00 EDT, Height Start Date: 02/09/23 Status: Ordered levothyroxine 0.112 mg oral tablet 1 tablet, By Mouth, Daily, # 28 tablet, 1 Refills, Maintenance, 05/18/22 15:34:00 EDT, [facility], 152.1, cm, 05/08/22 11:14:00 EDT, Height [...] By Mouth, Daily, R1., # 30 tablet, 3 Refills, Maintenance, 02/09/23 18:26:00 EDT, [facility], 150.5, cm, 01/16/23 10:14:00 EDT, Height Start Date: 02/09/23 Status: Ordered metFORMIN 500 mg oral tablet, extended release 2 tablet = 1,000 mg, By Mouth, Daily, # 60 tablet, 2 Refills, Maintenance, 01/14/23 15:49:00 EDT, [facility], Partial fill upon patient request if the prescription is for a schedule II opioiddrug., 152.1, cm, 08/22/22 10:03:00 EST, Height Start Date: 01/14/23 Status: Ordered Ocuvite Lutein By Mouth, Daily, 0 Refills, Maintenance, 04/03/15 13:16:39 Start Date: 04/03/15 Status: Ordered omeprazole 20 mg oral enteric coated capsule 1 capsule, By Mouth, Daily, R1., # 28 capsule, 2 Refills, Maintenance, 02/06/23 9:25:00 EDT, [facility], 150.5, cm, 01/16/23 10:14:00 EDT, Height Start Date: 02/06/23 Status: Ordered one walker one walker, See [...] PAIN Start Date: 09/24/21 Status: Ordered Pen [place], 31 G x 5 mm BD Ultra Fine III See Instructions, # 120 each, Refills 2, Tot. Refills 2, Maintenance, Use four times a day DM [id number] Office visit needed for further refills, 07/21/18 [...] mg, By Mouth, Daily, # 30 capsule, 5 Refills, Maintenance, 02/12/23 10:37:00 EDT, [facility], Partial fill upon patient request if the prescription is for a schedule II opioiddrug., 150.5, cm, 01/16/23 10:14:00 EDT, Height Start Date: 02/12/23 Status: Ordered Test Strips for Prodigy Auto [...] Date: 08/21/22 Status: Ordered UNIFINE PNTP MIS [id number] UNIFINE PNTP MIS [id number], See Instructions, # 100 each, 1 Refills, Maintenance, DIRECTED FOUR TIMES DAILY, 05/10/22 10:46:00 EDT, 152.1, cm, 05/08/22 11:14:00 EDT, Height Start Date: 05/10/22 Status: Ordered UNIFINE PNTP MIS [id number] UNIFINE PNTP MIS [id number], See Instructions, # 100 each, 2 Refills, [...] capsule, 5 Refills, Maintenance, 11/28/22 11:00:00 EDT, [facility], 152.1, cm, 08/22/22 10:03:00 EST, Height Start Date: 11/28/22 Status: Ordered Problem List Condition Confirmation Course Effective Dates Status H ealth Status Informant Obesity (BMI 30-39.9) Confirmed Active Complicated bereavement Confirmed Active jail current use of insulin - checks glucose [...] Care team information Care Team Personnel Name: Marina Meier Position: [facility] manager cash Member Role: Consumer Insight Manager Name: Ezequiel Jacques MD Position: [facility] Physician - Primary Care Member Role: PCP Address: Address: [address] [place] [id number]- Name: Madhuri Leonard RN Position: [facility] RN Member Role: Primary Care Nurse Care Team Related Persons Name: TAYLOR CUEVAS Address: home [address] [place] [id number] Name: COLEEN SANCHEZ
--- OUTSIDE RECORDS SUMMARY | 2023-07-10 16:07 | XMS_ITS | Continuity of Care Document ---
Author Name Unknown Organization [facility] Serjio lt Address [address] [place] [address]- Care Team Providers Care Straightening Press Operator Helper Name Role Phone Georgie FREEMAN, Ezequiel Chino Primary Care Physician [place] [facility] [place] 01/09/23 - 02/08/23 [facility] Adult [address] [place] [address]- Allergies, Adverse Reactions, Alerts Substance Reaction Severity Status morphine anaflactic shock Active penicillins anaflactic shock Active Immunizations Given and Recorded Vaccine Date Status Refusal Reason [id number] 12y+ bivalent booster vax 11/27/22 Recorded influenza virus vaccine, inactivated 1 05/03/18 Gi adwoa influenza virus vaccine, inactivated 06/09/16 Give n influenza virus vaccine, inactivated 04/19/15 Give n tetanus/diphtheria/pertussis, acel(Tdap) 2 12/21/17 Given pneumococcal 23-valent vaccine 06/09/16 Given pneumococcal 13-valent vaccine 04/03/15 Given 1Result Comment: [05/03/2018] [facility]-[id number] 2Result Comment: [12/21/2017] [id number] Medications Anecream Topically, 3 times a day, [...] tablet, 5 Refills, Maintenance, 11/19/22 13:51:00 EDT, [facility], 152.1, cm, 08/22/22 10:03:00 EST, Height Start Date: 11/19/22 Status: Ordered atorvastatin 10 mg oral tablet 1 tablet, By Mouth, Daily, R4., # 28 tablet, 5 Refills, Maintenance, 11/05/22 6:36:00 EDT, [facility], 152.1, cm, 08/22/22 10:03:00 EST, Height [...] times a day, ^1R1,1R4., # 56 tablet, 3 Refills, Maintenance, 01/14/23 15:48:00 EDT, [facility], 152.1, cm, 08/22/22 10:03:00 EST, Height Start Date: 01/14/23 Status: Ordered Diabetic Shoes Diabetic Shoes, See Instructions, # 1 each, Refills 1, Tot. 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 Refills 5, Maintenance, 08/21/22 16:13:00 EST, Route to Pharmacy Electronically, [facility], 152.1, cm, 05/08/22 11:14:00 EDT, Height [...] PCP (MAX 87 UNITS PER... Start Date: 01/14/23 Status: Ordered Lancets for Prodigy Auto Code [...] # 8each, 5 Refills, 05/28/22 13:24:00 EST, [facility], 152.1, cm, 05/08/22 11:14:00 EDT, Height Start Date: 05/28/22 Status: Ordered levothyroxine 0.112 mg oral tablet 1 tablet, By Mouth, Daily, # 28 tablet, 1 Refills, Maintenance, 05/18/22 15:34:00 EDT, [facility], 152.1, cm, 05/08/22 11:14:00 EDT, Height [...] tablet, 5 Refills, Maintenance, 08/21/22 13:11:00 EST, [facility], 152.1, cm, 05/08/22 11:14:00 EDT, Height Start Date: 08/21/22 Status: Ordered metFORMIN 500 mg oral tablet, extended release 2 tablet = 1,000 mg, By Mouth, Daily, # 60 tablet, 2 Refills, Maintenance, 01/14/23 15:49:00 EDT, [facility], Partial fill upon patient request if the prescription is for a schedule II opioiddrug., 152.1, cm, 08/22/22 10:03:00 EST, Height Start Date: 01/14/23 Status: Ordered Ocuvite Lutein By Mouth, Daily, 0 Refills, Maintenance, 04/03/15 13:16:39 Start Date: 04/03/15 Status: Ordered omeprazole 20 mg oral enteric coated capsule 1 capsule, By Mouth, Daily, R1., # 28 capsule, 2 Refills, Maintenance, 02/06/23 9:25:00 EDT, [facility], 150.5, cm, 01/16/23 10:14:00 EDT, Height [...] PAIN Start Date: 09/24/21 Status: Ordered Pen [place], 31 G x 5 mm BD Ultra Fine III See Instructions, # 120 each, Refills 2, Tot. Refills 2, Maintenance, Use four times a day DM [id number] Office visit needed for further refills, 07/21/18 [...] Date: 08/21/22 Status: Ordered UNIFINE PNTP MIS [id number] UNIFINE PNTP MIS [id number], See Instructions, # 100 each, 1 Refills, Maintenance, DIRECTED FOUR TIMES DAILY, 05/10/22 10:46:00 EDT, 152.1, cm, 05/08/22 11:14:00 EDT, Height Start Date: 05/10/22 Status: Ordered UNIFINE PNTP MIS [id number] UNIFINE PNTP MIS [id number], See Instructions, # 100 each, 2 Refills, [...] capsule, 5 Refills, Maintenance, 11/28/22 11:00:00 EDT, [facility], 152.1, cm, 08/22/22 10:03:00 EST, Height Start Date: 11/28/22 Status: Ordered Problem List Condition Confirmation Course Effective Dates Status H ealth Status Informant Obesity (BMI 30-39.9) Confirmed Active Complicated bereavement Confirmed Active intermediate current use of insulin - checks glucose [...] Primary Care Member Role: PCP Address: Address: [address] [place] [address]- Care Team Related Persons Name: TAYLOR CUEVAS Address: home [address] [place] [address] Name: COLEEN SANCHEZ
--- OUTSIDE RECORDS SUMMARY | 2023-07-10 16:07 | XMS_ITS | Continuity of Care Document ---
Author Name Unknown Organization [facility] [place] Serjio lt Address [address] [place] [address]- Care Team Providers Care Supervisor Central Supply Name Role Phone Georgie FREEMAN, Ezequiel Chino Primary Care Physician [place] [facility] [place]23 [place] 04/02/23 [facility] [place] Adult [address] [place] [address]- Allergies, Adverse Reactions, Alerts Substance Reaction Severity Status morphine anaflactic shock Active penicillins anaflactic shock Active Immunizations Given and Recorded Vaccine Date Status Refusal Reason [id number] 12y+ bivalent booster vax 11/27/22 Recorded influenza virus vaccine, inactivated 1 05/03/18 Gi adwoa influenza virus vaccine, inactivated 06/09/16 Give n influenza virus vaccine, inactivated 04/19/15 Give n tetanus/diphtheria/pertussis, acel(Tdap) 2 12/21/17 Given pneumococcal 23-valent vaccine 06/09/16 Given pneumococcal 13-valent vaccine 04/03/15 Given 1Result Comment: [05/03/2018] [facility]-[id number] 2Result Comment: [12/21/2017] [id number] Medications Anecream Topically, 3 times a day, [...] tablet, 5 Refills, Maintenance, 11/19/22 13:51:00 EDT, [facility], 152.1, cm, 08/22/22 10:03:00 EST, Height Start Date: 11/19/22 Status: Ordered atorvastatin 10 mg oral tablet 1 tablet, By Mouth, Daily, R4., # 28 tablet, 5 Refills, Maintenance, 11/05/22 6:36:00 EDT, [facility], 152.1, cm, 08/22/22 10:03:00 EST, Height [...] tablet, 11 Refills, Maintenance, 02/12/23 4:32:00 EDT, [facility], 150.5, cm, 01/16/23 10:14:00 EDT, Height Start Date: 02/12/23 Status: Ordered Diabetic Shoes Diabetic Shoes, See Instructions, # 1 each, Refills 1, Tot. 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, 03/10/17 10:06:57, Compound Start Date: 03/10/17 Status: Ordered FLUoxetine 40 mg oral capsule 1 capsule, By Mouth, Daily, R1., # 31 capsule, 5 Refills, Maintenance, 02/10/23 6:29:00 EDT, [facility], 150.5, cm, 01/16/23 10:14:00 EDT, Height Start Date: 02/10/23 Status: Ordered FreeStyle Yasmeen 2 Monitor See Instructions, # 1 each, Maintenance, Yasmeen 2 [place] only Pt will pay soto with [employer]x coupon that I faxed Use to test BS qid for E11.9 IDDM, 03/30/23 10:20:00 EDT, Supply, 150.5, cm, 01/16/23 10:14:00 EDT, Height Start Date: 03/30/23 Status: Ordered furosemide 40 mg oral tablet 1, tablet, By Mouth, Daily, ^1R1., # 30 tablet, Refills 3, Tot. Refills 3, Maintenance, 02/09/23 18:26:00 EDT, Route to Pharmacy Electronically, [facility], 150.5, cm, 01/16/23 10:14:00 EDT, Height [...] mL, 5 Refills, Maintenance, 02/09/23 18:26:00 EDT, [facility], 150.5, cm, 01/16/23 10:14:00 EDT, Height Start Date: 02/09/23 Status: Ordered levothyroxine 0.112 mg oral tablet 1 tablet, By Mouth, Daily, # 28 tablet, 1 Refills, Maintenance, 05/18/22 15:34:00 EDT, [facility], 152.1, cm, 05/08/22 11:14:00 EDT, [...] tablet, 3 Refills, Maintenance, 02/09/23 18:26:00 EDT, [facility], 150.5, cm, 01/16/23 10:14:00 EDT, Height Start Date: 02/09/23 Status: Ordered metFORMIN 500 mg oral tablet, extended release 2 tablet = 1,000 mg, By Mouth, Daily, # 60 tablet, 2 Refills, Maintenance, 01/14/23 15:49:00 EDT, [facility], Partial fill upon patient request if the prescription is for a schedule II opioiddrug., 152.1, cm, 08/22/22 10:03:00 EST, Height Start Date: 01/14/23 Status: Ordered Ocuvite Lutein By Mouth, Daily, 0 Refills, Maintenance, 04/03/15 13:16:39 Start Date: 04/03/15 Status: Ordered omeprazole 20 mg oral enteric coated capsule 1 capsule, By Mouth, Daily, R1., # 28 capsule, 2 Refills, Maintenance, 02/06/23 9:25:00 EDT, [facility], 150.5, cm, 01/16/23 10:14:00 EDT, Height [...] PAIN Start Date: 09/24/21 Status: Ordered Pen [place], 31 G x 5 mm BD Ultra Fine III See Instructions, # 120 each, Refills 2, Tot. Refills 2, Maintenance, Use four times a day DM [id number] Office visit needed for further refills, 07/21/18 [...] capsule, 5 Refills, Maintenance, 02/12/23 10:37:00 EDT, [facility], Partial fill upon patient request if [...] Date: 08/21/22 Status: Ordered UNIFINE PNTP MIS [id number] UNIFINE PNTP MIS [id number], See Instructions, # 100 each, 1 Refills, Maintenance, DIRECTED FOUR TIMES DAILY, 05/10/22 10:46:00 EDT, 152.1, cm, 05/08/22 11:14:00 EDT, Height Start Date: 05/10/22 Status: Ordered UNIFINE PNTP MIS [id number] UNIFINE PNTP MIS [id number], See Instructions, # 100 each, 2 Refills, [...] capsule, 5 Refills, Maintenance, 11/28/22 11:00:00 EDT, [facility], 152.1, cm, 08/22/22 10:03:00 EST, Height Start Date: 11/28/22 Status: Ordered Problem List Condition Confirmation Course Effective Dates Status H ealth Status Informant Obesity (BMI 30-39.9) Confirmed Active Complicated bereavement Confirmed Active retirement current use of insulin - checks [...] team information Care Team Personnel Name: Hardeep ([facility]) Marina Position: [facility] route jumper Member Role: Computer Numerical Control Programmer Name: Ezequiel Jacques MD Position: [facility] Physician - Primary Care Member Role: PCP Address: Address: [address] [place] [address]- Name: Madhuri Leonard RN Position: [facility] RN Member Role: Primary Care Nurse Care Team Related Persons Name: TANYAYUETAYLOR Address: [address] [address] Name: COLEEN SANCHEZ
--- OUTSIDE RECORDS SUMMARY | 2023-07-10 16:07 | XMS_ITS | Continuity of Care Document ---
Author Name Unknown Organization [facility] [place] Serjio lt Address [address] [place] [address]- Care Team Providers Care Phlebotomist Name Role Phone Georgie FREEMAN, Ezequiel Chino Primary Care Physician [phone] Encounter [facility] [place] Date(s): 03/05/23 - 04/04/23 [facility] [place] Adult [address] [place] [address]- Allergies, Adverse Reactions, Alerts Substance Reaction Severity Status morphine anaflactic shock Active penicillins anaflactic shock Active Immunizations Given and Recorded Vaccine Date Status Refusal Reason [id number] 12y+ bivalent booster vax 11/27/22 Recorded influenza virus vaccine, inactivated 1 05/03/18 Gi adwoa influenza virus vaccine, inactivated 06/09/16 Give n influenza virus vaccine, inactivated 04/19/15 Give n tetanus/diphtheria/pertussis, acel(Tdap) 2 12/21/17 Given pneumococcal 23-valent vaccine 06/09/16 Given pneumococcal 13-valent vaccine 04/03/15 Given 1Result Comment: [05/03/2018] [facility]-[id number] 2Result Comment: [12/21/2017] [id number] Medications Anecream Topically, 3 times a day, [...] tablet, 5 Refills, Maintenance, 11/19/22 13:51:00 EDT, [facility], 152.1, cm, 08/22/22 10:03:00 EST, Height Start Date: 11/19/22 Status: Ordered atorvastatin 10 mg oral tablet 1 tablet, By Mouth, Daily, R4., # 28 tablet, 5 Refills, Maintenance, 11/05/22 6:36:00 EDT, [facility], 152.1, cm, 08/22/22 10:03:00 EST, Height [...] tablet, 11 Refills, Maintenance, 02/12/23 4:32:00 EDT, [facility], 150.5, cm, 01/16/23 10:14:00 EDT, Height Start Date: 02/12/23 Status: Ordered Diabetic Shoes Diabetic Shoes, See Instructions, # 1 each, Refills 1, Tot. 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, 03/10/17 10:06:57, Compound Start Date: 03/10/17 Status: Ordered FLUoxetine 40 mg oral capsule 1 capsule, By Mouth, Daily, R1., # 31 capsule, 5 Refills, Maintenance, 02/10/23 6:29:00 EDT, [facility], 150.5, cm, 01/16/23 10:14:00 EDT, Height Start Date: 02/10/23 Status: Ordered FreeStyle Yasmeen 2 Monitor See Instructions, # 1 each, Maintenance, Yasmeen 2 [place] only Pt will pay soto with [employer] coupon that I faxed Use to test BS qid for E11.9 IDDM, 03/30/23 10:20:00 EDT, Supply, 150.5, cm, 01/16/23 10:14:00 EDT, Height Start Date: 03/30/23 Status: Ordered furosemide 40 mg oral tablet 1, tablet, By Mouth, Daily, ^1R1., # 30 tablet, Refills 3, Tot. Refills 3, Maintenance, 02/09/23 18:26:00 EDT, Route to Pharmacy Electronically, [facility], 150.5, cm, 01/16/23 10:14:00 EDT, Height [...] mL, 5 Refills, Maintenance, 02/09/23 18:26:00 EDT, [facility], 150.5, cm, 01/16/23 10:14:00 EDT, Height Start Date: 02/09/23 Status: Ordered levothyroxine 0.112 mg oral tablet 1 tablet, By Mouth, Daily, # 28 tablet, 1 Refills, Maintenance, 05/18/22 15:34:00 EDT, [facility], 152.1, cm, 05/08/22 11:14:00 EDT, [...] tablet, 3 Refills, Maintenance, 02/09/23 18:26:00 EDT, [facility], 150.5, cm, 01/16/23 10:14:00 EDT, Height Start Date: 02/09/23 Status: Ordered metFORMIN 500 mg oral tablet, extended release 2 tablet = 1,000 mg, By Mouth, Daily, # 60 tablet, 2 Refills, Maintenance, 01/14/23 15:49:00 EDT, [facility], Partial fill upon patient request [...] capsule, 2 Refills, Maintenance, 02/06/23 9:25:00 EDT, [facility], 150.5, cm, 01/16/23 10:14:00 EDT, [...] PAIN Start Date: 09/24/21 Status: Ordered Pen [place], 31 G x 5 mm BD Ultra Fine III See Instructions, # 120 each, Refills 2, Tot. Refills 2, Maintenance, Use four times a day DM [id number] Office visit needed for further refills, 07/21/18 [...] capsule, 5 Refills, Maintenance, 02/12/23 10:37:00 EDT, [facility], Partial fill upon patient request if [...] Date: 08/21/22 Status: Ordered UNIFINE PNTP MIS [id number] UNIFINE PNTP MIS [id number], See Instructions, # 100 each, 1 Refills, Maintenance, DIRECTED FOUR TIMES DAILY, 05/10/22 10:46:00 EDT, 152.1, cm, 05/08/22 11:14:00 EDT, Height Start Date: 05/10/22 Status: Ordered UNIFINE PNTP MIS [id number] UNIFINE PNTP MIS [id number], See Instructions, # 100 each, 2 Refills, [...] 30-39.9) Confirmed Active Complicated bereavement Confirmed Active snf current use of insulin - checks glucose [...] team information Care Team Personnel Name: Hardeep ([facility]) Marina Position: [facility] wire frame maker Member Role: Waiter/Waitress Cabin Class Name: Ezequiel Jacques MD Position: [facility] Physician - Primary Care Member Role: PCP Address: Address: [address] [place] [id number]- Name: Madhuri Leonard RN Position: [facility] RN Member Role: Primary Care Nurse Care Team Related Persons Name: TANYAYUETAYLOR Address: [address] [address] Name: COLEEN SANCHEZ
--- OUTSIDE RECORDS SUMMARY | 2023-07-10 16:07 | XMS_ITS | Continuity of Care Document ---
Author Name Unknown Organization [facility] Serjio lt Address [address] [place] [address]- Care Team Providers Care Dumpster Operator Name Role Phone Georgie FREEMAN, Ezequiel Chino Primary Care Physician [phone] Encounter [facility] Date(s): 01/13/23 - 02/12/23 [facility] Adult [address] [place] [address]- Allergies, Adverse Reactions, Alerts Substance Reaction Severity Status morphine anaflactic shock Active penicillins anaflactic shock Active Immunizations Given and Recorded Vaccine Date Status Refusal Reason [id number] 12y+ bivalent booster vax 11/27/22 Recorded influenza virus vaccine, inactivated 1 05/03/18 Gi adwoa influenza virus vaccine, inactivated 06/09/16 Give n influenza virus vaccine, inactivated 04/19/15 Give n tetanus/diphtheria/pertussis, acel(Tdap) 2 12/21/17 Given pneumococcal 23-valent vaccine 06/09/16 Given pneumococcal 13-valent vaccine 04/03/15 Given 1Result Comment: [05/03/2018] [id number] 2Result Comment: [12/21/2017] [id number] Medications Anecream Topically, 3 times a day, [...] tablet, 5 Refills, Maintenance, 11/19/22 13:51:00 EDT, [facility], 152.1, cm, 08/22/22 10:03:00 EST, Height Start Date: 11/19/22 Status: Ordered atorvastatin 10 mg oral tablet 1 tablet, By Mouth, Daily, R4., # 28 tablet, 5 Refills, Maintenance, 11/05/22 6:36:00 EDT, [facility], 152.1, cm, 08/22/22 10:03:00 EST, Height [...] tablet, 11 Refills, Maintenance, 02/12/23 4:32:00 EDT, [facility], 150.5, cm, 01/16/23 10:14:00 EDT, Height Start Date: 02/12/23 Status: Ordered Diabetic Shoes Diabetic Shoes, See Instructions, # 1 each, Refills 1, Tot. 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 Refills 3, Maintenance, 02/09/23 18:26:00 EDT, Route to Pharmacy Electronically, [facility], 150.5, cm, 01/16/23 10:14:00 EDT, Height [...] mL, 5 Refills, Maintenance, 02/09/23 18:26:00 [facility], cm, 01/16/23 10:14:00 EDT, Height Start Date: 02/09/23 Status: Ordered levothyroxine 0.112 mg oral tablet 1 tablet, By Mouth, Daily, # 28 tablet, 1 Refills, Maintenance, 05/18/22 15:34:00 [facility], [facility], cm, 05/08/22 11:14:00 EDT, Height [...] tablet, 3 Refills, Maintenance, 02/09/23 18:26:00 EDT, [facility], 150.5, cm, 01/16/23 10:14:00 EDT, Height Start Date: 02/09/23 Status: Ordered metFORMIN 500 mg oral tablet, extended release 2 tablet = 1,000 mg, By Mouth, Daily, # 60 tablet, 2 Refills, Maintenance, 01/14/23 15:49:00 EDT, [facility], Partial fill upon patient request if the prescription is for a schedule II opioiddrug., 152.1, cm, 08/22/22 10:03:00 EST, Height Start Date: 01/14/23 Status: Ordered Ocuvite Lutein By Mouth, Daily, 0 Refills, Maintenance, 04/03/15 13:16:39 Start Date: 04/03/15 Status: Ordered omeprazole 20 mg oral enteric coated capsule 1 capsule, By Mouth, Daily, R1., # 28 capsule, 2 Refills, Maintenance, 02/06/23 9:25:00 EDT, [facility], 150.5, cm, 01/16/23 10:14:00 EDT, Height [...] Start Date: 09/24/21 Status: Ordered Pen [place], 31 G x 5 mm BD Ultra Fine III See Instructions, # 120 each, Refills 2, Tot. Refills 2, Maintenance, Use four times a day DM [id number] Office visit needed for further refills, 07/21/18 [...] capsule, 5 Refills, Maintenance, 02/12/23 10:37:00 EDT, [facility], Partial fill upon patient request if [...] Date: 08/21/22 Status: Ordered UNIFINE PNTP MIS [id number] UNIFINE PNTP MIS [id number], See Instructions, # 100 each, 1 Refills, Maintenance, DIRECTED FOUR TIMES DAILY, 05/10/22 10:46:00 EDT, 152.1, cm, 05/08/22 11:14:00 EDT, Height Start Date: 05/10/22 Status: Ordered UNIFINE PNTP MIS [id number] UNIFINE PNTP MIS [id number], See Instructions, # 100 each, 2 Refills, [...] capsule, 5 Refills, Maintenance, 11/28/22 11:00:00 EDT, [facility], 152.1, cm, 08/22/22 10:03:00 EST, Height Start Date: 11/28/22 Status: Ordered Problem List Condition Confirmation Course Effective Dates Status H ealth Status Informant Obesity (BMI 30-39.9) Confirmed Active Complicated 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
--- OUTSIDE RECORDS SUMMARY | 2023-07-10 16:07 | XMS_ITS | Continuity of Care Document ---
Author Name Unknown Organization [facility] Serjio lt Address [address] [place] [address]- Care Team Providers Care Financial Services Officer Name Role Phone Georgie FREMEAN, Ezequiel Chino Primary Care Physician En[place] [facility] [place] Date(s): 01/08/23 - 02/07/23 [facility] Adult [address] [place] [address]- Allergies, Adverse Reactions, Alerts Substance Reaction Severity Status morphine anaflactic shock Active penicillins anaflactic shock Active Immunizations Given and Recorded Vaccine Date Status Refusal Reason [id number] 12y+ bivalent booster vax 11/27/22 Recorded influenza virus vaccine, inactivated 1 05/03/18 Gi adwoa influenza virus vaccine, inactivated 06/09/16 Give n influenza virus vaccine, inactivated 04/19/15 Give n tetanus/diphtheria/pertussis, acel(Tdap) 2 12/21/17 Given pneumococcal 23-valent vaccine 06/09/16 Given pneumococcal 13-valent vaccine 04/03/15 Given 1Result Comment: [05/03/2018] [facility]-[id number] 2Result Comment: [12/21/2017] [id number] Medications Anecream Topically, 3 times a day, [...] tablet, 5 Refills, Maintenance, 11/19/22 13:51:00 EDT[facility], cm, 08/22/22 10:03:00 EST, Height Start Date: 11/19/22 Status: Ordered atorvastatin 10 mg oral tablet 1 tablet, By Mouth, Daily, R4., # 28 tablet, 5 Refills, Maintenance, 11/05/22 6:36:00 EDT, [facility], 152.1, cm, 08/22/22 10:03:00 EST, Height [...] tablet, 3 Refills, Maintenance, 01/14/23 15:48:00 EDT, [facility], 152.1, cm, 08/22/22 10:03:00 EST, Height Start Date: 01/14/23 Status: Ordered Diabetic Shoes Diabetic Shoes, See Instructions, # 1 each, Refills 1, Tot. 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 Refills 5, Maintenance, 08/21/22 16:13:00 EST, Route to Pharmacy Electronically, [facility], 152.1, cm, 05/08/22 11:14:00 EDT, [...] # 8each, 5 Refills, 05/28/22 13:24:00 EST, [facility], 152.1, cm, 05/08/22 11:14:00 EDT, Height Start Date: 05/28/22 Status: Ordered levothyroxine 0.112 mg oral tablet 1 tablet, By Mouth, Daily, # 28 tablet, 1 Refills, Maintenance, 05/18/22 15:34:00 [facility]T, [facility], [facility], cm, 05/08/22 11:14:00 EDT, Height [...] tablet, 5 Refills, Maintenance, 08/21/22 13:11:00 EST, [facility], 152.1, cm, 05/08/22 11:14:00 EDT, Height Start Date: 08/21/22 Status: Ordered metFORMIN 500 mg oral tablet, extended release 2 tablet = 1,000 mg, By Mouth, Daily, # 60 tablet, 2 Refills, Maintenance, 01/14/23 15:49:00 EDT, [facility], Partial fill upon patient request [...] capsule, 2 Refills, Maintenance, 02/06/23 9:25:00 EDT, [facility], 150.5, cm, 01/16/23 10:14:00 EDT, Height [...] PAIN Start Date: 09/24/21 Status: Ordered Pen [place], 31 G x 5 mm BD Ultra Fine III See Instructions, # 120 each, Refills 2, Tot. Refills 2, Maintenance, Use four times a day DM [id number] Office visit needed for further refills, 07/21/18 [...] Date: 08/21/22 Status: Ordered UNIFINE PNTP MIS [id number] UNIFINE PNTP MIS [id number], See Instructions, # 100 each, 1 Refills, Maintenance, DIRECTED FOUR TIMES DAILY, 05/10/22 10:46:00 EDT, 152.1, cm, 05/08/22 11:14:00 EDT, Height Start Date: 05/10/22 Status: Ordered UNIFINE PNTP MIS [id number] UNIFINE PNTP MIS [id number], See Instructions, # 100 each, 2 Refills, [...] capsule, 5 Refills, Maintenance, 11/28/22 11:00:00 EDT, [facility], 152.1, cm, 08/22/22 10:03:00 EST, Height Start Date: 11/28/22 Status: Ordered Problem List Condition Confirmation Course Effective Dates Status H ealth Status Informant Obesity (BMI 30-39.9) Confirmed Active Complicated bereavement 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
--- OUTSIDE RECORDS SUMMARY | 2023-07-10 16:08 | XMS_ITS | Continuity of Care Document ---
Author Name Unknown Organization [facility] Serjio lt Address [address] [place] [address]- Care Team Providers Care Lab Instructor Name Role Phone Georgie FREEMAN, Ezequiel Chino Primary Care Physician Encounter [facility] Date(s): 12/24/22 - 01/23/23 [facility] Adult [address] [place] [address]- Allergies, Adverse Reactions, Alerts Substance Reaction Severity Status morphine anaflactic shock Active penicillins anaflactic shock Active Immunizations Given and Recorded Vaccine Date Status Refusal Reason [id number] 12y+ bivalent booster vax 11/27/22 Recorded influenza virus vaccine, inactivated 1 05/03/18 Gi adwoa influenza virus vaccine, inactivated 06/09/16 Give n influenza virus vaccine, inactivated 04/19/15 Give n tetanus/diphtheria/pertussis, acel(Tdap) 2 12/21/17 Given pneumococcal 23-valent vaccine 06/09/16 Given pneumococcal 13-valent vaccine 04/03/15 Given 1Result Comment: [05/03/2018] [facility]-[id number] 2Result Comment: [12/21/2017] 27344-874-89 Medications Anecream Topically, 3 times a day, [...] tablet, 5 Refills, Maintenance, 11/19/22 13:51:00 EDT, [facility], 152.1, cm, 08/22/22 10:03:00 EST, Height Start Date: 11/19/22 Status: Ordered atorvastatin 10 mg oral tablet 1 tablet, By Mouth, Daily, R4., # 28 tablet, 5 Refills, Maintenance, 11/05/22 6:36:00 EDT, [facility], 152.1, cm, 08/22/22 10:03:00 EST, Height [...] tablet, 3 Refills, Maintenance, 01/14/23 15:48:00 EDT, [facility], 152.1, cm, 08/22/22 10:03:00 EST, Height Start Date: 01/14/23 Status: Ordered Diabetic Shoes Diabetic Shoes, See Instructions, # 1 each, Refills 1, Tot. 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 Refills 5, Maintenance, 08/21/22 16:13:00 EST, [facility], [facility]1, cm, 05/08/22 11:14:00 EDT, [...] # 8each, 5 Refills, 05/28/22 13:24:00 EST, [facility], [facility], cm, 05/08/22 11:14:00 EDT, Height Start Date: 05/28/22 Status: Ordered levothyroxine 0.112 mg oral tablet 1 tablet, By Mouth, Daily, # 28 tablet, 1 Refills, Maintenance, 05/18/22 15:34:00 EDT[facility], [facility]1, cm, 05/08/22 11:14:00 EDT, Height [...] tablet, 5 Refills, Maintenance, 08/21/22 13:11:00 EST, [facility], 152.1, cm, 05/08/22 11:14:00 EDT, Height Start Date: 08/21/22 Status: Ordered metFORMIN 500 mg oral tablet, extended release 2 tablet = 1,000 mg, By Mouth, Daily, # 60 tablet, 2 Refills, Maintenance, 01/14/23 15:49:00 EDT, [facility], Partial fill upon patient request if the prescription is for a schedule II opioiddrug., 152.1, cm, 08/22/22 10:03:00 EST, Height Start Date: 01/14/23 Status: Ordered Ocuvite Lutein By Mouth, Daily, 0 Refills, Maintenance, 04/03/15 13:16:39 Start Date: 04/03/15 Status: Ordered omeprazole 20 mg oral enteric coated capsule 1 capsule, By Mouth, Daily, R1., # 28 capsule, 5 Refills, Maintenance, 07/28/22 12:14:00 EST, [facility], 152.1, cm, 05/08/22 11:14:00 EDT, Height [...] PAIN Start Date: 09/24/21 Status: Ordered Pen [place], 31 G x 5 mm BD Ultra Fine III See Instructions, # 120 each, Refills 2, Tot. Refills 2, Maintenance, Use four times a day DM [id number] Office visit needed for further refills, 07/21/18 [...] Date: 08/21/22 Status: Ordered UNIFINE PNTP MIS [id number] UNIFINE PNTP MIS [id number], See Instructions, # 100 each, 1 Refills, Maintenance, DIRECTED FOUR TIMES DAILY, 05/10/22 10:46:00 EDT, 152.1, cm, 05/08/22 11:14:00 EDT, Height Start Date: 05/10/22 Status: Ordered UNIFINE PNTP MIS [id number] UNIFINE PNTP MIS [id number], See Instructions, # 100 each, 2 Refills, [...] capsule, 5 Refills, Maintenance, 11/28/22 11:00:00 EDT, [facility], 152.1, cm, 08/22/22 10:03:00 EST, Height [...] Primary Care Member Role: PCP Address: Address: [address] [place] [address]- Care Team Related Persons Name: TAYLOR CUEVAS Address: home [address] [place] [address] Name: COLEEN SANCHEZ
--- OUTSIDE RECORDS SUMMARY | 2023-07-10 16:08 | XMS_ITS | Continuity of Care Document ---
Author Name Unknown Organization [facility] Serjio lt Address [address] [place] [address]- Care Team Providers Care Fuel Tank Sealer And Tester Name Role Phone Georgie FREEMAN, Ezequiel Chino Primary Care Physician Encounter [facility] Date(s): 12/25/22 - 01/24/23 [facility] Adult [address] [place] [address]- Allergies, Adverse Reactions, Alerts Substance Reaction Severity Status morphine anaflactic shock Active penicillins anaflactic shock Active Immunizations Given and Recorded Vaccine Date Status Refusal Reason [id number] 12y+ bivalent booster vax 11/27/22 Recorded influenza virus vaccine, inactivated 1 05/03/18 Gi adwoa influenza virus vaccine, inactivated 06/09/16 Give n influenza virus vaccine, inactivated 04/19/15 Give n tetanus/diphtheria/pertussis, acel(Tdap) 2 12/21/17 Given pneumococcal 23-valent vaccine 06/09/16 Given pneumococcal 13-valent vaccine 04/03/15 Given 1Result Comment: [05/03/2018] [facility]-[id number] 2Result Comment: [12/21/2017] [id number] Medications Anecream Topically, 3 times a day, [...] tablet, 5 Refills, Maintenance, 11/19/22 13:51:00 EDT, [facility], 152.1, cm, 08/22/22 10:03:00 EST, Height Start Date: 11/19/22 Status: Ordered atorvastatin 10 mg oral tablet 1 tablet, By Mouth, Daily, R4., # 28 tablet, 5 Refills, Maintenance, 11/05/22 6:36:00 EDT, [facility], 152.1, cm, 08/22/22 10:03:00 EST, Height [...] tablet, 3 Refills, Maintenance, 01/14/23 15:48:00 EDT, [facility], 152.1, cm, 08/22/22 10:03:00 EST, Height Start Date: 01/14/23 Status: Ordered Diabetic Shoes Diabetic Shoes, See Instructions, # 1 each, Refills 1, Tot. 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 Refills 5, Maintenance, 08/21/22 16:13:00 EST, [facility], 152.1, cm, 05/08/22 11:14:00 EDT, Height [...] # 8each, 5 Refills, 05/28/22 13:24:00 EST, [facility], [facility], cm, 05/08/22 11:14:00 EDT, Height Start Date: 05/28/22 Status: Ordered levothyroxine 0.112 mg oral tablet 1 tablet, By Mouth, Daily, # 28 tablet, 1 Refills, Maintenance, 05/18/22 15:34:00 EDT[facility], 152[facility]1, cm, 05/08/22 11:14:00 EDT, Height [...] tablet, 5 Refills, Maintenance, 08/21/22 13:11:00 EST, [facility], 152.1, cm, 05/08/22 11:14:00 EDT, Height Start Date: 08/21/22 Status: Ordered metFORMIN 500 mg oral tablet, extended release 2 tablet = 1,000 mg, By Mouth, Daily, # 60 tablet, 2 Refills, Maintenance, 01/14/23 15:49:00 EDT, [facility], Partial fill upon patient request if the prescription is for a schedule II opioiddrug., 152.1, cm, 08/22/22 10:03:00 EST, Height Start Date: 01/14/23 Status: Ordered Ocuvite Lutein By Mouth, Daily, 0 Refills, Maintenance, 04/03/15 13:16:39 Start Date: 04/03/15 Status: Ordered omeprazole 20 mg oral enteric coated capsule 1 capsule, By Mouth, Daily, R1., # 28 capsule, 5 Refills, Maintenance, 07/28/22 12:14:00 EST, [facility], 152.1, cm, 05/08/22 11:14:00 EDT, Height [...] PAIN Start Date: 09/24/21 Status: Ordered Pen [place], 31 G x 5 mm BD Ultra Fine III See Instructions, # 120 each, Refills 2, Tot. Refills 2, Maintenance, Use four times a day DM [id number] Office visit needed for further refills, 07/21/18 [...] Date: 08/21/22 Status: Ordered UNIFINE PNTP MIS [id number] UNIFINE PNTP MIS [id number], See Instructions, # 100 each, 1 Refills, Maintenance, DIRECTED FOUR TIMES DAILY, 05/10/22 10:46:00 EDT, 152.1, cm, 05/08/22 11:14:00 EDT, Height Start Date: 05/10/22 Status: Ordered UNIFINE PNTP MIS [id number] UNIFINE PNTP MIS [id number], See Instructions, # 100 each, 2 Refills, [...] capsule, 5 Refills, Maintenance, 11/28/22 11:00:00 EDT, [facility], 152.1, cm, 08/22/22 10:03:00 EST, Height [...] Primary Care Member Role: PCP Address: Address: [address] [place] [address]- Care Team Related Persons Name: TAYLOR CUEVAS Address: home [address] [place] [address] Name: COLEEN SANCHEZ
--- OUTSIDE RECORDS SUMMARY | 2023-07-10 16:08 | XMS_ITS | Continuity of Care Document ---
Author Name Unknown Organization [facility] Address [address] [place] [address]- Care Team Providers Care Morning Nanny Name Role Phone Georgie FREEMAN, Ezequiel Chino Primary Care Physician Encounter [facility] [place] Date(s): 01/28/23 - 02/27/23 [facility] [address] [place] [address] Allergies, Adverse Reactions, Alerts Substance Reaction Severity Status morphine anaflactic shock Active penicillins anaflactic shock Active Immunizations Given and Recorded Vaccine Date Status Refusal Reason [id number] 12y+ bivalent booster vax 11/27/22 Recorded influenza virus vaccine, inactivated 1 05/03/18 Gi adwoa influenza virus vaccine, inactivated 06/09/16 Give n influenza virus vaccine, inactivated 04/19/15 Give n tetanus/diphtheria/pertussis, acel(Tdap) 2 12/21/17 Given pneumococcal 23-valent vaccine 06/09/16 Given pneumococcal 13-valent vaccine 04/03/15 Given 1Result Comment: [05/03/2018] [facility]-[id number] 2Result Comment: [12/21/2017] [id number] Medications Anecream Topically, 3 times a day, [...] tablet, 5 Refills, Maintenance, 11/19/22 13:51:00 EDT, [facility], cm, 08/22/22 10:03:00 EST, Height Start Date: 11/19/22 Status: Ordered atorvastatin 10 mg oral tablet 1 tablet, By Mouth, Daily, R4., # 28 tablet, 5 Refills, Maintenance, 11/05/22 6:36:00 EDT, [facility], [facility]1, cm, 08/22/22 10:03:00 EST, Height [...] tablet, 11 Refills, Maintenance, 02/12/23 4:32:00 EDT, [facility], 150.5, cm, 01/16/23 10:14:00 EDT, Height Start Date: 02/12/23 Status: Ordered Diabetic Shoes Diabetic Shoes, See Instructions, # 1 each, Refills 1, Tot. 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 Refills 3, Maintenance, 02/09/23 18:26:00 EDT, Route to Pharmacy Electronically, [facility], 150.5, cm, 01/16/23 10:14:00 EDT, Height [...] mL, 5 Refills, Maintenance, 02/09/23 18:26:00 EDT, [facility], 150.5, cm, 01/16/23 10:14:00 EDT, Height Start Date: 02/09/23 Status: Ordered levothyroxine 0.112 mg oral tablet 1 tablet, By Mouth, Daily, # 28 tablet, 1 Refills, Maintenance, 05/18/22 15:34:00 EDT, [facility], 152.1, cm, 05/08/22 11:14:00 EDT, Height [...] tablet, 3 Refills, Maintenance, 02/09/23 18:26:00 EDT, [facility], 150.5, cm, 01/16/23 10:14:00 EDT, Height Start Date: 02/09/23 Status: Ordered metFORMIN 500 mg oral tablet, extended release 2 tablet = 1,000 mg, By Mouth, Daily, # 60 tablet, 2 Refills, Maintenance, 01/14/23 15:49:00 EDT, [facility], Partial fill upon patient request if the prescription is for a schedule II opioiddrug., 152.1, cm, 08/22/22 10:03:00 EST, Height Start Date: 01/14/23 Status: Ordered Ocuvite Lutein By Mouth, Daily, 0 Refills, Maintenance, 04/03/15 13:16:39 Start Date: 04/03/15 Status: Ordered omeprazole 20 mg oral enteric coated capsule 1 capsule, By Mouth, Daily, R1., # 28 capsule, 2 Refills, Maintenance, 02/06/23 9:25:00 EDT, [facility], 150.5, cm, 01/16/23 10:14:00 EDT, Height [...] PAIN Start Date: 09/24/21 Status: Ordered Pen [place], 31 G x 5 mm BD Ultra Fine III See Instructions, # 120 each, Refills 2, Tot. Refills 2, Maintenance, Use four times a day DM [id number] Office visit needed for further refills, 07/21/18 [...] capsule, 5 Refills, Maintenance, 02/12/23 10:37:00 EDT, [facility], Partial fill upon patient request if [...] Date: 08/21/22 Status: Ordered UNIFINE PNTP MIS [id number] UNIFINE PNTP MIS [id number], See Instructions, # 100 each, 1 Refills, Maintenance, DIRECTED FOUR TIMES DAILY, 05/10/22 10:46:00 EDT, 152.1, cm, 05/08/22 11:14:00 EDT, Height Start Date: 05/10/22 Status: Ordered UNIFINE PNTP MIS [id number] UNIFINE PNTP MIS [id number], See Instructions, # 100 each, 2 Refills, [...] capsule, 5 Refills, Maintenance, 11/28/22 11:00:00 EDT, [facility], 152.1, cm, 08/22/22 10:03:00 EST, Height Start Date: 11/28/22 Status: Ordered Problem List Condition Confirmation Course Effective Dates Status H ealth Status Informant Obesity (BMI 30-39.9) Confirmed Active Complicated 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
--- OUTSIDE RECORDS SUMMARY | 2023-07-10 16:08 | XMS_ITS | Continuity of Care Document ---
Author Name Unknown Organization [facility] Serjio lt Address [address] [place] [address]- Care Team Providers Care Quarter Seamer Name Role Phone Georgie FREEMAN, Ezequiel Chino Primary Care Physician Encounter [facility] Date(s): 01/15/23 - 02/14/23 [facility] Adult [address] [place] [address]- Allergies, Adverse Reactions, Alerts Substance Reaction Severity Status morphine anaflactic shock Active penicillins anaflactic shock Active Immunizations Given and Recorded Vaccine Date Status Refusal Reason [id number] 12y+ bivalent booster vax 11/27/22 Recorded influenza virus vaccine, inactivated 1 05/03/18 Gi adwoa influenza virus vaccine, inactivated 06/09/16 Give n influenza virus vaccine, inactivated 04/19/15 Give n tetanus/diphtheria/pertussis, acel(Tdap) 2 12/21/17 Given pneumococcal 23-valent vaccine 06/09/16 Given pneumococcal 13-valent vaccine 04/03/15 Given 1Result Comment: [05/03/2018] [facility]-[id number] 2Result Comment: [12/21/2017] [id number] Medications Anecream Topically, 3 times a day, [...] tablet, 5 Refills, Maintenance, 11/19/22 13:51:00 EDT, [facility], 152.1, cm, 08/22/22 10:03:00 EST, Height Start Date: 11/19/22 Status: Ordered atorvastatin 10 mg oral tablet 1 tablet, By Mouth, Daily, R4., # 28 tablet, 5 Refills, Maintenance, 11/05/22 6:36:00 EDT, [facility], 152.1, cm, 08/22/22 10:03:00 EST, Height [...] tablet, 11 Refills, Maintenance, 02/12/23 4:32:00 EDT, [facility], 150.5, cm, 01/16/23 10:14:00 EDT, Height Start Date: 02/12/23 Status: Ordered Diabetic Shoes Diabetic Shoes, See Instructions, # 1 each, Refills 1, Tot. 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 Refills 3, Maintenance, 02/09/23 18:26:00 EDT, Route to Pharmacy Electronically, [facility], 150.5, cm, 01/16/23 10:14:00 EDT, Height [...] mL, 5 Refills, Maintenance, 02/09/23 18:26:00 [facility], cm, 01/16/23 10:14:00 EDT, Height Start Date: 02/09/23 Status: Ordered levothyroxine 0.112 mg oral tablet 1 tablet, By Mouth, Daily, # 28 tablet, 1 Refills, Maintenance, 05/18/22 15:34:00 [facility], cm, 05/08/22 11:14:00 EDT, Height [...] tablet, 3 Refills, Maintenance, 02/09/23 18:26:00 EDT, [facility], 150.5, cm, 01/16/23 10:14:00 EDT, Height Start Date: 02/09/23 Status: Ordered metFORMIN 500 mg oral tablet, extended release 2 tablet = 1,000 mg, By Mouth, Daily, # 60 tablet, 2 Refills, Maintenance, 01/14/23 15:49:00 EDT, [facility], Partial fill upon patient request if the prescription is for a schedule II opioiddrug., 152.1, cm, 08/22/22 10:03:00 EST, Height Start Date: 01/14/23 Status: Ordered Ocuvite Lutein By Mouth, Daily, 0 Refills, Maintenance, 04/03/15 13:16:39 Start Date: 04/03/15 Status: Ordered omeprazole 20 mg oral enteric coated capsule 1 capsule, By Mouth, Daily, R1., # 28 capsule, 2 Refills, Maintenance, 02/06/23 9:25:00 EDT, [facility], 150.5, cm, 01/16/23 10:14:00 EDT, Height [...] PAIN Start Date: 09/24/21 Status: Ordered Pen [place], 31 G x 5 mm BD Ultra Fine III See Instructions, # 120 each, Refills 2, Tot. Refills 2, Maintenance, Use four times a day DM [id number] Office visit needed for further refills, 07/21/18 [...] capsule, 5 Refills, Maintenance, 02/12/23 10:37:00 EDT, [facility], Partial fill upon patient request if [...] Date: 08/21/22 Status: Ordered UNIFINE PNTP MIS [id number] UNIFINE PNTP MIS [id number], See Instructions, # 100 each, 1 Refills, Maintenance, DIRECTED FOUR TIMES DAILY, 05/10/22 10:46:00 EDT, 152.1, cm, 05/08/22 11:14:00 EDT, Height Start Date: 05/10/22 Status: Ordered UNIFINE PNTP MIS [id number] UNIFINE PNTP MIS [id number], See Instructions, # 100 each, 2 Refills, [...] Refills, Maintenance, 11/28/22 11:00:00 EDT, [facility], 152.1, cm, 08/22/22 10:03:00 EST, Height Start Date: 11/28/22 Status: Ordered Problem List Condition Confirmation Course Effective Dates Status H ealth Status Informant Obesity (BMI 30-39.9) Confirmed Active Complicated bereavement 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
--- OUTSIDE RECORDS SUMMARY | 2023-07-10 16:08 | XMS_ITS | Continuity of Care Document ---
Author Name Unknown Organization [facility] Serjio lt Address [address] [place] [address]- Care Team Providers Care Cutting Machine Tender Decorative Name Role Phone Georgie FREEMAN, Ezequiel Chino Primary Care Physician [phone] [place] [facility] [place] 12[place]24[place]22 - 01/23/23 [facility] Adult [address] [place] [address]- Allergies, Adverse Reactions, Alerts Substance Reaction Severity Status morphine anaflactic shock Active penicillins anaflactic shock Active Immunizations Given and Recorded Vaccine Date Status Refusal Reason [id number] 12y+ bivalent booster vax 11/27/22 Recorded influenza virus vaccine, inactivated 1 05/03/18 Gi adwoa influenza virus vaccine, inactivated 06/09/16 Give n influenza virus vaccine, inactivated 04/19/15 Give n tetanus/diphtheria/pertussis, acel(Tdap) 2 12/21/17 Given pneumococcal 23-valent vaccine 06/09/16 Given pneumococcal 13-valent vaccine 04/03/15 Given 1Result Comment: [05/03/2018] [id number] 2Result Comment: [12/21/2017] [id number] Medications Anecream Topically, 3 times a day, [...] tablet, 5 Refills, Maintenance, 11/19/22 13:51:00 EDT, [facility], 152.1, cm, 08/22/22 10:03:00 EST, Height Start Date: 11/19/22 Status: Ordered atorvastatin 10 mg oral tablet 1 tablet, By Mouth, Daily, R4., # 28 tablet, 5 Refills, Maintenance, 11/05/22 6:36:00 EDT, [facility], 152.1, cm, 08/22/22 10:03:00 EST, Height [...] tablet, 3 Refills, Maintenance, 01/14/23 15:48:00 EDT, [facility], 152.1, cm, 08/22/22 10:03:00 EST, Height Start Date: 01/14/23 Status: Ordered Diabetic Shoes Diabetic Shoes, See Instructions, # 1 each, Refills 1, Tot. 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 Refills 5, Maintenance, 08/21/22 16:13:00 EST, [facility]1, cm, 05/08/22 [...] # 8each, 5 Refills, 05/28/22 13:24:00 EST, [facility], [facility], cm, 05/08/22 11:14:00 EDT, Height Start Date: 05/28/22 Status: Ordered levothyroxine 0.112 mg oral tablet 1 tablet, By Mouth, Daily, # 28 tablet, 1 Refills, Maintenance, 05/18/22 15:34:00 EDT, [facility], [facility], cm, 05/08/22 11:14:00 EDT, Height [...] tablet, 5 Refills, Maintenance, 08/21/22 13:11:00 EST, [facility], 152.1, cm, 05/08/22 11:14:00 EDT, Height Start Date: 08/21/22 Status: Ordered metFORMIN 500 mg oral tablet, extended release 2 tablet = 1,000 mg, By Mouth, Daily, # 60 tablet, 2 Refills, Maintenance, 01/14/23 15:49:00 EDT, [facility], Partial fill upon patient request if the prescription is for a schedule II opioiddrug., 152.1, cm, 08/22/22 10:03:00 EST, Height Start Date: 01/14/23 Status: Ordered Ocuvite Lutein By Mouth, Daily, 0 Refills, Maintenance, 04/03/15 13:16:39 Start Date: 04/03/15 Status: Ordered omeprazole 20 mg oral enteric coated capsule 1 capsule, By Mouth, Daily, R1., # 28 capsule, 5 Refills, Maintenance, 07/28/22 12:14:00 EST, [facility], 152.1, cm, 05/08/22 11:14:00 EDT, Height [...] PAIN Start Date: 09/24/21 Status: Ordered Pen [place], 31 G x 5 mm BD Ultra Fine III See Instructions, # 120 each, Refills 2, Tot. Refills 2, Maintenance, Use four times a day DM [id number] Office visit needed for further refills, 07/21/18 [...] Date: 08/21/22 Status: Ordered UNIFINE PNTP MIS [id number] UNIFINE PNTP MIS [id number], See Instructions, # 100 each, 1 Refills, Maintenance, DIRECTED FOUR TIMES DAILY, 05/10/22 10:46:00 EDT, 152.1, cm, 05/08/22 11:14:00 EDT, Height Start Date: 05/10/22 Status: Ordered UNIFINE PNTP MIS [id number] UNIFINE PNTP MIS [id number], See Instructions, # 100 each, 2 Refills, [...] capsule, 5 Refills, Maintenance, 11/28/22 11:00:00 EDT, [facility], 152.1, cm, 08/22/22 10:03:00 EST, Height Start Date: 11/28/22 Status: Ordered Problem List Condition Confirmation Course Effective Dates Status H ealth Status Informant Obesity (BMI 30-39.9) Confirmed Active Complicated bereavement Confirmed Active [facility] current use of insulin - checks glucose [...] Primary Care Member Role: PCP Address: Address: [address] [place] [id number]- Care Team Related Persons Name: TAYLOR CUEVAS Address: home [address] [place] [address] Name: COLEEN SANCHEZ
--- OUTSIDE RECORDS SUMMARY | 2023-07-10 16:08 | XMS_ITS | Continuity of Care Document ---
Author Name Unknown Organization [facility] Serjio lt Address [address] [place] [address]- Care Team Providers Care Dental Scheduling Coordinator Name Role Phone Georgie FREEMAN, Ezequiel Chino Primary Care Physician [phone] [place] [facility] [place]23 [facility] Adult [address] [place] [address]- Allergies, Adverse Reactions, Alerts Substance Reaction Severity Status morphine anaflactic shock Active penicillins anaflactic shock Active Immunizations Given and Recorded Vaccine Date Status Refusal Reason [id number] 12y+ bivalent booster vax 11/27/22 Recorded influenza virus vaccine, inactivated 1 05/03/18 Gi adwoa influenza virus vaccine, inactivated 06/09/16 Give n influenza virus vaccine, inactivated 04/19/15 Give n tetanus/diphtheria/pertussis, acel(Tdap) 2 12/21/17 Given pneumococcal 23-valent vaccine 06/09/16 Given pneumococcal 13-valent vaccine 04/03/15 Given 1Result Comment: [05/03/2018] [facility]-[id number] 2Result Comment: [12/21/2017] [id number] Medications Anecream Topically, 3 times a day, [...] tablet, 5 Refills, Maintenance, 11/19/22 13:51:00 EDT[facility], cm, 08/22/22 10:03:00 EST, Height Start Date: 11/19/22 Status: Ordered atorvastatin 10 mg oral tablet 1 tablet, By Mouth, Daily, R4., # 28 tablet, 5 Refills, Maintenance, 11/05/22 6:36:00 EDT, [facility], 152.1, cm, 08/22/22 10:03:00 EST, Height [...] tablet, 3 Refills, Maintenance, 01/14/23 15:48:00 EDT, [facility], 152.1, cm, 08/22/22 10:03:00 EST, Height Start Date: 01/14/23 Status: Ordered Diabetic Shoes Diabetic Shoes, See Instructions, # 1 each, Refills 1, Tot. 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 Refills 5, Maintenance, 08/21/22 16:13:00 EST, Route to Pharmacy Electronically, [facility], 152.1, cm, 05/08/22 11:14:00 EDT, Height [...] # 8each, 5 Refills, 05/28/22 13:24:00 EST, [facility], 152.1, cm, 05/08/22 11:14:00 EDT, Height Start Date: 05/28/22 Status: Ordered levothyroxine 0.112 mg oral tablet 1 tablet, By Mouth, Daily, # 28 tablet, 1 Refills, Maintenance, 05/18/22 15:34:00 EDT, [facility], [facility], cm, 05/08/22 11:14:00 EDT, Height [...] tablet, 5 Refills, Maintenance, 08/21/22 13:11:00 EST, [facility], 152.1, cm, 05/08/22 11:14:00 EDT, Height Start Date: 08/21/22 Status: Ordered metFORMIN 500 mg oral tablet, extended release 2 tablet = 1,000 mg, By Mouth, Daily, # 60 tablet, 2 Refills, Maintenance, 01/14/23 15:49:00 EDT, [facility], Partial fill upon patient request if the prescription is for a schedule II opioiddrug., 152.1, cm, 08/22/22 10:03:00 EST, Height Start Date: 01/14/23 Status: Ordered Ocuvite Lutein By Mouth, Daily, 0 Refills, Maintenance, 04/03/15 13:16:39 Start Date: 04/03/15 Status: Ordered omeprazole 20 mg oral enteric coated capsule 1 capsule, By Mouth, Daily, R1., # 28 capsule, 5 Refills, Maintenance, 07/28/22 12:14:00 EST, [facility], 152.1, cm, 05/08/22 11:14:00 EDT, Height [...] PAIN Start Date: 09/24/21 Status: Ordered Pen [place], 31 G x 5 mm BD Ultra Fine III See Instructions, # 120 each, Refills 2, Tot. Refills 2, Maintenance, Use four times a day DM [id number] Office visit needed for further refills, 07/21/18 [...] Date: 08/21/22 Status: Ordered UNIFINE PNTP MIS [id number] UNIFINE PNTP MIS [id number], See Instructions, # 100 each, 1 Refills, Maintenance, DIRECTED FOUR TIMES DAILY, 05/10/22 10:46:00 EDT, 152.1, cm, 05/08/22 11:14:00 EDT, Height Start Date: 05/10/22 Status: Ordered UNIFINE PNTP MIS [id number] UNIFINE PNTP MIS [id number], See Instructions, # 100 each, 2 Refills, [...] capsule, 5 Refills, Maintenance, 11/28/22 11:00:00 EDT, [facility], 152.1, cm, 08/22/22 10:03:00 EST, Height [...] Primary Care Member Role: PCP Address: Address: [address] [place] [address]- Care Team Related Persons Name: TAYLOR CUEVAS Address: home [address] [place] [address] Name: COLEEN SANCHEZ
--- OUTSIDE RECORDS SUMMARY | 2023-07-10 16:08 | XMS_ITS | Continuity of Care Document ---
Author Name Unknown Organization [facility] Serjio lt Address [address] [place] [address]- Care Team Providers Care Web Services Developer Name Role Phone Georgie FREEMAN, Ezequiel Chino Primary Care Physician [place] [facility] [place]23 [facility] Adult [address] [place] [address]- Allergies, Adverse Reactions, Alerts Substance Reaction Severity Status morphine anaflactic shock Active penicillins anaflactic shock Active Immunizations Given and Recorded Vaccine Date Status Refusal Reason [id number] 12y+ bivalent booster vax 11/27/22 Recorded influenza virus vaccine, inactivated 1 05/03/18 Gi adwoa influenza virus vaccine, inactivated 06/09/16 Give n influenza virus vaccine, inactivated 04/19/15 Give n tetanus/diphtheria/pertussis, acel(Tdap) 2 12/21/17 Given pneumococcal 23-valent vaccine 06/09/16 Given pneumococcal 13-valent vaccine 04/03/15 Given 1Result Comment: [05/03/2018] [facility]-[id number] 2Result Comment: [12/21/2017] [id number] Medications Anecream Topically, 3 times a day, [...] tablet, 5 Refills, Maintenance, 06/05/23 20:07:00 EST, [facility], 150.5, cm, 01/16/23 10:14:00 EDT, Height Start Date: 06/05/23 Status: Ordered atorvastatin 10 mg oral tablet 1 tablet, By Mouth, Daily, R4., # 28 tablet, 5 Refills, Maintenance, 06/05/23 20:07:00 EST, [facility], 150.5, cm, 01/16/23 10:14:00 EDT, Height [...] tablet, 11 Refills, Maintenance, 02/12/23 4:32:00 EDT, [facility], 150.5, cm, 01/16/23 10:14:00 EDT, Height Start Date: 02/12/23 Status: Ordered Diabetic Shoes Diabetic Shoes, See Instructions, # 1 each, Refills 1, Tot. 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, 03/10/17 10:06:57, Compound Start Date: 03/10/17 Status: Ordered FLUoxetine 40 mg oral capsule 1 capsule, By Mouth, Daily, R1., # 31 capsule, 5 Refills, Maintenance, 02/10/23 6:29:00 EDT, [facility], 150.5, cm, 01/16/23 10:14:00 EDT, Height Start Date: 02/10/23 Status: Ordered FreeStyle Yasmeen 2 Monitor See Instructions, # 1 each, Maintenance, Yasmeen 2 [place] only Pt will pay osto with RMIx coupon that I faxed Use to test BS qid for E11.9 IDDM, 03/30/23 10:20:00 EDT, [facility], 150.5, cm, 01/16/23 10:14:00 EDT, Height Start Date: 03/30/23 Status: Ordered furosemide 40 mg oral tablet 1, tablet, By Mouth, Daily, ^1R1., # 30 tablet, Refills 5, Maintenance, 07/01/23 10:17:00 EST, Route to Pharmacy Electronically, [facility], 150.5, cm, 01/16/23 10:14:00 EDT, Height [...] mL, 5 Refills, Maintenance, 02/09/23 18:26:00 EDT, [facility], 150.5, cm, 01/16/23 10:14:00 EDT, Height Start Date: 02/09/23 Status: Ordered levothyroxine 0.112 mg oral tablet 1 tablet, By Mouth, Daily, # 28 tablet, 1 Refills, Maintenance, 05/18/22 15:34:00 EDT, [facility], 152.1, cm, 05/08/22 11:14:00 EDT, [...] tablet, 5 Refills, Maintenance, 07/01/23 10:17:00 EST, [facility], 150.5, cm, 01/16/23 10:14:00 EDT, Height Start Date: 07/01/23 Status: Ordered MetFORMIN (Eqv-Glucophage XR) 500 mg oral tablet, extended release See Instructions, TAKE 2 TABLETS BY MOUTH DAILY ^2R1, # 60 tablet, 5 Refills, Maintenance, 05/08/2314:13:00 EDT[facility], cm, 01/16/23 10:14:00 EDT, Height Start Date: 05/08/23 Status: Ordered Ocuvite Lutein By Mouth, Daily, 0 Refills, Maintenance, 04/03/15 13:16:39 Start Date: 04/03/15 Status: Ordered omeprazole 20 mg oral enteric coated capsule 1 capsule, By Mouth, Daily, R1., # 28 capsule, 5 Refills, Maintenance, 06/05/23 19:40:00 EST, [facility], 150.5, cm, 01/16/23 10:14:00 EDT, Height [...] PAIN Start Date: 09/24/21 Status: Ordered Pen [place], 31 G x 5 mm BD Ultra Fine III See Instructions, # 120 each, Refills 2, Tot. Refills 2, Maintenance, Use four times a day DM [id number] Office visit needed for further refills, 07/21/18 [...] capsule, 11 Refills, Maintenance, 04/23/23 4:15:00 EDT, [facility], Partial fill upon patient request [...] Date: 08/21/22 Status: Ordered UNIFINE PNTP MIS [id number] UNIFINE PNTP MIS [id number], See Instructions, # 100 each, 1 Refills, Maintenance, DIRECTED FOUR TIMES DAILY, 05/10/22 10:46:00 EDT, 152.1, cm, 05/08/22 11:14:00 EDT, Height Start Date: 05/10/22 Status: Ordered UNIFINE PNTP MIS [id number] UNIFINE PNTP MIS [id number], See Instructions, # 100 each, 2 Refills, [...] 30-39.9) Confirmed Active Complicated bereavement Confirmed Active [facility] current use of insulin - checks glucose [...] team information Care Team Personnel Name: Harde[employer] Marina 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
--- OUTSIDE RECORDS SUMMARY | 2023-07-10 16:08 | XMS_ITS | Continuity of Care Document ---
Author Name Unknown Organization [facility] C ancer Care Address [address] [place] [address]- Care Team Providers Care Sales Performance Manager Name Role Phone Georgie FREEMAN, Ezequiel Chino Primary Care Physician Encounter [facility] [place] Date(s): 02/10/23 - 03/12/23 [facility] Care [address] [place] [id number] Allergies, Adverse Reactions, Alerts Substance Reaction Severity Status morphine anaflactic shock Active penicillins anaflactic shock Active Immunizations Given and Recorded Vaccine Date Status Refusal Reason [id number] 12y+ bivalent booster vax 11/27/22 Recorded influenza virus vaccine, inactivated 1 05/03/18 Gi adwoa influenza virus vaccine, inactivated 06/09/16 Give n influenza virus vaccine, inactivated 04/19/15 Give n tetanus/diphtheria/pertussis, acel(Tdap) 2 12/21/17 Given pneumococcal 23-valent vaccine 06/09/16 Given pneumococcal 13-valent vaccine 04/03/15 Given 1Result Comment: [05/03/2018] [facility]-[id number] 2Result Comment: [12/21/2017] [id number] Medications Anecream Topically, 3 times a day, [...] Refills, Maintenance, 11/19/22 13:51:00 EDT, [facility], 152.1, cm, 08/22/22 10:03:00 EST, Height Start Date: 11/19/22 Status: Ordered atorvastatin 10 mg oral tablet 1 tablet, By Mouth, Daily, R4., # 28 tablet, 5 Refills, Maintenance, 11/05/22 6:36:00 EDT, [facility], 152.1, cm, 08/22/22 10:03:00 EST, Height [...] tablet, 11 Refills, Maintenance, 02/12/23 4:32:00 EDT, [facility], 150.5, cm, 01/16/23 10:14:00 EDT, Height Start Date: 02/12/23 Status: Ordered Diabetic Shoes Diabetic Shoes, See Instructions, # 1 each, Refills 1, Tot. 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 Refills 3, Maintenance, 02/09/23 18:26:00 EDT, Route to Pharmacy Electronically, [facility], 150.5, cm, 01/16/23 10:14:00 EDT, Height [...] mL, 5 Refills, Maintenance, 02/09/23 18:26:00 EDT, [facility], 150.5, cm, 01/16/23 10:14:00 EDT, Height Start Date: 02/09/23 Status: Ordered levothyroxine 0.112 mg oral tablet 1 tablet, By Mouth, Daily, # 28 tablet, 1 Refills, Maintenance, 05/18/22 15:34:00 EDT, [facility], 152.1, cm, 05/08/22 11:14:00 EDT, Height [...] tablet, 3 Refills, Maintenance, 02/09/23 18:26:00 EDT, [facility], 150.5, cm, 01/16/23 10:14:00 EDT, Height Start Date: 02/09/23 Status: Ordered metFORMIN 500 mg oral tablet, extended release 2 tablet = 1,000 mg, By Mouth, Daily, # 60 tablet, 2 Refills, Maintenance, 01/14/23 15:49:00 EDT, [facility], Partial fill upon patient request if the prescription is for a schedule II opioiddrug., 152.1, cm, 08/22/22 10:03:00 EST, Height Start Date: 01/14/23 Status: Ordered Ocuvite Lutein By Mouth, Daily, 0 Refills, Maintenance, 04/03/15 13:16:39 Start Date: 04/03/15 Status: Ordered omeprazole 20 mg oral enteric coated capsule 1 capsule, By Mouth, Daily, R1., # 28 capsule, 2 Refills, Maintenance, 02/06/23 9:25:00 EDT, [facility], 150.5, cm, 01/16/23 10:14:00 EDT, Height [...] PAIN Start Date: 09/24/21 Status: Ordered Pen [place], 31 G x 5 mm BD Ultra Fine III See Instructions, # 120 each, Refills 2, Tot. Refills 2, Maintenance, Use four times a day DM [id number] Office visit needed for further refills, 07/21/18 [...] capsule, 5 Refills, Maintenance, 02/12/23 10:37:00 EDT, [facility], Partial fill upon patient request if [...] Date: 08/21/22 Status: Ordered UNIFINE PNTP MIS [id number] UNIFINE PNTP MIS [id number], See Instructions, # 100 each, 1 Refills, Maintenance, DIRECTED FOUR TIMES DAILY, 05/10/22 10:46:00 EDT, 152.1, cm, 05/08/22 11:14:00 EDT, Height Start Date: 05/10/22 Status: Ordered UNIFINE PNTP MIS [id number] UNIFINE PNTP MIS [id number], See Instructions, # 100 each, 2 Refills, [...] capsule, 5 Refills, Maintenance, 11/28/22 11:00:00 EDT, [facility] [place] [place], 152.1, cm, 08/22/22 10:03:00 EST, Height Start Date: 11/28/22 Status: Ordered Problem List Condition Confirmation Course Effective Dates Status H ealth Status Informant Obesity (BMI 30-39.9) Confirmed Active Complicated bereavement 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
--- OUTSIDE RECORDS SUMMARY | 2023-07-10 16:09 | XMS_ITS | Continuity of Care Document ---
Author Name Unknown Organization [facility] Serjio lt Address [address] [place] [address]- Care Team Providers Care Supervisor [employer] Name Role Phone Georgie FREEMAN, Ezequiel Chino Primary Care Physician [phone] [place] [facility] [place]04[place]23 - 07/04/23 [facility] Adult [address] [place] [address]- Allergies, Adverse Reactions, Alerts Substance Reaction Severity Status morphine anaflactic shock Active penicillins anaflactic shock Active Immunizations Given and Recorded Vaccine Date Status Refusal Reason [id number] 12y+ bivalent booster vax 11/27/22 Recorded influenza virus vaccine, inactivated 1 05/03/18 Gi adwoa influenza virus vaccine, inactivated 06/09/16 Give n influenza virus vaccine, inactivated 04/19/15 Give n tetanus/diphtheria/pertussis, acel(Tdap) 2 12/21/17 Given pneumococcal 23-valent vaccine 06/09/16 Given pneumococcal 13-valent vaccine 04/03/15 Given 1Result Comment: [05/03/2018] [facility][NOTE 3]-[id number] 2Result Comment: [12/21/2017] [id number] Medications Anecream Topically, 3 times a day, [...] tablet, 5 Refills, Maintenance, 06/05/23 20:07:00 EST, [facility], 150.5, cm, 01/16/23 10:14:00 EDT, Height Start Date: 06/05/23 Status: Ordered atorvastatin 10 mg oral tablet 1 tablet, By Mouth, Daily, R4., # 28 tablet, 5 Refills, Maintenance, 06/05/23 20:07:00 EST, [facility], 150.5, cm, 01/16/23 10:14:00 EDT, Height [...] tablet, 11 Refills, Maintenance, 02/12/23 4:32:00 EDT, [facility], 150.5, cm, 01/16/23 10:14:00 EDT, Height Start Date: 02/12/23 Status: Ordered Diabetic Shoes Diabetic Shoes, See Instructions, # 1 each, Refills 1, Tot. 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, 03/10/17 10:06:57, Compound Start Date: 03/10/17 Status: Ordered FLUoxetine 40 mg oral capsule 1 capsule, By Mouth, Daily, R1., # 31 capsule, 5 Refills, Maintenance, 02/10/23 6:29:00 EDT, [facility], 150.5, cm, 01/16/23 10:14:00 EDT, Height Start Date: 02/10/23 Status: Ordered FreeStyle Yasmeen 2 Monitor See Instructions, # 1 each, Maintenance, Yasmeen 2 [place] only Pt will pay soto with Flex Pharmax coupon that I faxed Use to test BS qid for E11.9 IDDM, 03/30/23 10:20:00 EDT, Supply, 150.5, cm, 01/16/23 10:14:00 EDT, Height Start Date: 03/30/23 Status: Ordered furosemide 40 mg oral tablet 1, tablet, By Mouth, Daily, ^1R1., # 30 tablet, Refills 5, Maintenance, 07/01/23 10:17:00 EST, Route to Pharmacy Electronically, [facility], 150.5, cm, 01/16/23 10:14:00 EDT, Height [...] mL, 5 Refills, Maintenance, 02/09/23 18:26:00 EDT, [facility], 150.5, cm, 01/16/23 10:14:00 EDT, Height Start Date: 02/09/23 Status: Ordered levothyroxine 0.112 mg oral tablet 1 tablet, By Mouth, Daily, # 28 tablet, 1 Refills, Maintenance, 05/18/22 15:34:00 EDT, [facility], 152.1, cm, 05/08/22 11:14:00 EDT, Height [...] tablet, 5 Refills, Maintenance, 07/01/23 10:17:00 EST, [facility], 150.5, cm, 01/16/23 10:14:00 EDT, Height Start Date: 07/01/23 Status: Ordered MetFORMIN (Eqv-Glucophage XR) 500 mg oral tablet, extended release See Instructions, TAKE 2 TABLETS BY MOUTH DAILY ^2R1, # 60 tablet, 5 Refills, Maintenance, 05/08/2314:13:00 EDT, [facility], 150.5, cm, 01/16/23 10:14:00 EDT, Height Start Date: 05/08/23 Status: Ordered Ocuvite Lutein By Mouth, Daily, 0 Refills, Maintenance, 04/03/15 13:16:39 Start Date: 04/03/15 Status: Ordered omeprazole 20 mg oral enteric coated capsule 1 capsule, By Mouth, Daily, R1., # 28 capsule, 5 Refills, Maintenance, 06/05/23 19:40:00 EST, [facility], 150.5, cm, 01/16/23 10:14:00 EDT, Height [...] PAIN Start Date: 09/24/21 Status: Ordered Pen [place], 31 G x 5 mm BD Ultra Fine III See Instructions, # 120 each, Refills 2, Tot. Refills 2, Maintenance, Use four times a day DM [id number] Office visit needed for further refills, 07/21/18 [...] capsule, 11 Refills, Maintenance, 04/23/23 4:15:00 EDT, [facility], Partial fill upon patient request if [...] Date: 08/21/22 Status: Ordered UNIFINE PNTP MIS [id number] UNIFINE PNTP MIS [id number], See Instructions, # 100 each, 1 Refills, Maintenance, DIRECTED FOUR TIMES DAILY, 05/10/22 10:46:00 EDT, 152.1, cm, 05/08/22 11:14:00 EDT, Height Start Date: 05/10/22 Status: Ordered UNIFINE PNTP MIS [id number] UNIFINE PNTP MIS [id number], See Instructions, # 100 each, 2 Refills, [...] team information Care Team Personnel Name: Hardeep (Syncurity) Marina 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
--- OUTSIDE RECORDS SUMMARY | 2023-07-10 16:09 | XMS_ITS | Continuity of Care Document ---
Author Name Unknown Organization [facility] C ancer Care Address [address] [place] [address]- Care Team Providers Care Television Anchor Name Role Phone Georgie FREEMAN, Ezequiel Chino Primary Care Physician [phone] [place] [facility] [place]10[place]23 - 03/12/23 [facility] Care [address] [place] [address] Allergies, Adverse Reactions, Alerts Substance Reaction Severity Status morphine anaflactic shock Active penicillins anaflactic shock Active Immunizations Given and Recorded Vaccine Date Status Refusal Reason [id number] 12y+ bivalent booster vax 11/27/22 Recorded influenza virus vaccine, inactivated 1 05/03/18 Gi adwoa influenza virus vaccine, inactivated 06/09/16 Give n influenza virus vaccine, inactivated 04/19/15 Give n tetanus/diphtheria/pertussis, acel(Tdap) 2 12/21/17 Given pneumococcal 23-valent vaccine 06/09/16 Given pneumococcal 13-valent vaccine 04/03/15 Given 1Result Comment: [05/03/2018] [facility]-[id number] 2Result Comment: [12/21/2017] [id number] Medications Anecream Topically, 3 times a day, [...] Refills, Maintenance, 11/19/22 13:51:00 EDT, [facility], 152.1, cm, 08/22/22 10:03:00 EST, Height Start Date: 11/19/22 Status: Ordered atorvastatin 10 mg oral tablet 1 tablet, By Mouth, Daily, R4., # 28 tablet, 5 Refills, Maintenance, 11/05/22 6:36:00 EDT, [facility], 152.1, cm, 08/22/22 10:03:00 EST, Height [...] tablet, 11 Refills, Maintenance, 02/12/23 4:32:00 EDT, [facility], 150.5, cm, 01/16/23 10:14:00 EDT, Height Start Date: 02/12/23 Status: Ordered Diabetic Shoes Diabetic Shoes, See Instructions, # 1 each, Refills 1, Tot. 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 Refills 3, Maintenance, 02/09/23 18:26:00 EDT, Route to Pharmacy Electronically, [facility], 150.5, cm, 01/16/23 10:14:00 EDT, Height [...] mL, 5 Refills, Maintenance, 02/09/23 18:26:00 EDT, [facility], 150.5, cm, 01/16/23 10:14:00 EDT, Height Start Date: 02/09/23 Status: Ordered levothyroxine 0.112 mg oral tablet 1 tablet, By Mouth, Daily, # 28 tablet, 1 Refills, Maintenance, 05/18/22 15:34:00 EDT, [facility], 152.1, cm, 05/08/22 11:14:00 EDT, Height [...] tablet, 3 Refills, Maintenance, 02/09/23 18:26:00 EDT, [facility], 150.5, cm, 01/16/23 10:14:00 EDT, Height Start Date: 02/09/23 Status: Ordered metFORMIN 500 mg oral tablet, extended release 2 tablet = 1,000 mg, By Mouth, Daily, # 60 tablet, 2 Refills, Maintenance, 01/14/23 15:49:00 EDT, [facility], Partial fill upon patient request if the prescription is for a schedule II opioiddrug., 152.1, cm, 08/22/22 10:03:00 EST, Height Start Date: 01/14/23 Status: Ordered Ocuvite Lutein By Mouth, Daily, 0 Refills, Maintenance, 04/03/15 13:16:39 Start Date: 04/03/15 Status: Ordered omeprazole 20 mg oral enteric coated capsule 1 capsule, By Mouth, Daily, R1., # 28 capsule, 2 Refills, Maintenance, 02/06/23 9:25:00 EDT, [facility], 150.5, cm, 01/16/23 10:14:00 EDT, Height [...] PAIN Start Date: 09/24/21 Status: Ordered Pen [place], 31 G x 5 mm BD Ultra Fine III See Instructions, # 120 each, Refills 2, Tot. Refills 2, Maintenance, Use four times a day DM [id number] Office visit needed for further refills, 07/21/18 [...] capsule, 5 Refills, Maintenance, 02/12/23 10:37:00 EDT, [facility], Partial fill upon patient request if [...] Date: 08/21/22 Status: Ordered UNIFINE PNTP MIS [id number] UNIFINE PNTP MIS [id number], See Instructions, # 100 each, 1 Refills, Maintenance, DIRECTED FOUR TIMES DAILY, 05/10/22 10:46:00 EDT, 152.1, cm, 05/08/22 11:14:00 EDT, Height Start Date: 05/10/22 Status: Ordered UNIFINE PNTP MIS [id number] UNIFINE PNTP MIS [id number], See Instructions, # 100 each, 2 Refills, [...] capsule, 5 Refills, Maintenance, 11/28/22 11:00:00 EDT, [facility], 152.1, cm, 08/22/22 10:03:00 EST, Height Start Date: 11/28/22 Status: Ordered Problem List Condition Confirmation Course Effective Dates Status H ealth Status Informant Obesity (BMI 30-39.9) Confirmed Active 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
--- OUTSIDE RECORDS SUMMARY | 2023-07-10 16:09 | XMS_ITS | Continuity of Care Document ---
Author Name Unknown Organization [facility] Serjio lt Address [address] [place] [address]- Care Team Providers Care Straight Line Press Setter Name Role Phone Georgie FREEMAN, Ezequiel Chino Primary Care Physician Encounter [facility] [place] [place] Date(s): 12/26/22 - 01/31/23 [facility] Adult [address] [place] [address]- Attending Physician: Not on Staff, Attending MD Allergies, Adverse Reactions, Alerts Substance Reaction Severity Status morphine anaflactic shock Active penicillins anaflactic shock Active Immunizations Given and Recorded Vaccine Date Status Refusal Reason [id number] 12y+ bivalent booster vax 11/27/22 Recorded influenza virus vaccine, inactivated 1 05/03/18 Gi adwoa influenza virus vaccine, inactivated 06/09/16 Give n influenza virus vaccine, inactivated 04/19/15 Give n tetanus/diphtheria/pertussis, acel(Tdap) 2 12/21/17 Given pneumococcal 23-valent vaccine 06/09/16 Given pneumococcal 13-valent vaccine 04/03/15 Given 1Result Comment: [05/03/2018] [facility]-[id number] 2Result Comment: [12/21/2017] 65526-305-07 Medications Anecream Topically, 3 times a day, [...] tablet, 5 Refills, Maintenance, 11/19/22 13:51:00 EDT, [facility], 152.1, cm, 08/22/22 10:03:00 EST, Height Start Date: 11/19/22 Status: Ordered atorvastatin 10 mg oral tablet 1 tablet, By Mouth, Daily, R4., # 28 tablet, 5 Refills, Maintenance, 11/05/22 6:36:00 EDT, [facility], 152.1, cm, 08/22/22 10:03:00 EST, Height [...] tablet, 3 Refills, Maintenance, 01/14/23 15:48:00 EDT, [facility], 152.1, cm, 08/22/22 10:03:00 EST, Height Start Date: 01/14/23 Status: Ordered Diabetic Shoes Diabetic Shoes, See Instructions, # 1 each, Refills 1, Tot. 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 Refills 5, Maintenance, 08/21/22 16:13:00 EST, Route to Pharmacy Electronically, [facility], 152.1, cm, 05/08/22 11:14:00 EDT, Height [...] # 8each, 5 Refills, 05/28/22 13:24:00 EST, [facility], 152.1, cm, 05/08/22 11:14:00 EDT, Height Start Date: 05/28/22 Status: Ordered levothyroxine 0.112 mg oral tablet 1 tablet, By Mouth, Daily, # 28 tablet, 1 Refills, Maintenance, 05/18/22 15:34:00 EDT, [facility], 152.1, cm, 05/08/22 11:14:00 EDT, Height [...] tablet, 5 Refills, Maintenance, 08/21/22 13:11:00 EST, [facility], 152.1, cm, 05/08/22 11:14:00 EDT, Height Start Date: 08/21/22 Status: Ordered metFORMIN 500 mg oral tablet, extended release 2 tablet = 1,000 mg, By Mouth, Daily, # 60 tablet, 2 Refills, Maintenance, 01/14/23 15:49:00 EDT, [facility], Partial fill upon patient request if the prescription is for a schedule II opioiddrug., 152.1, cm, 08/22/22 10:03:00 EST, Height Start Date: 01/14/23 Status: Ordered Ocuvite Lutein By Mouth, Daily, 0 Refills, Maintenance, 04/03/15 13:16:39 Start Date: 04/03/15 Status: Ordered omeprazole 20 mg oral enteric coated capsule 1 capsule, By Mouth, Daily, R1., # 28 capsule, 5 Refills, Maintenance, 07/28/22 12:14:00 EST, [facility], 152.1, cm, 05/08/22 11:14:00 EDT, Height [...] PAIN Start Date: 09/24/21 Status: Ordered Pen [place], 31 G x 5 mm BD Ultra Fine III See Instructions, # 120 each, Refills 2, Tot. Refills 2, Maintenance, Use four times a day DM [id number] Office visit needed for further refills, 07/21/18 [...] Date: 08/21/22 Status: Ordered UNIFINE PNTP MIS [id number] UNIFINE PNTP MIS [id number], See Instructions, # 100 each, 1 Refills, Maintenance, DIRECTED FOUR TIMES DAILY, 05/10/22 10:46:00 EDT, 152.1, cm, 05/08/22 11:14:00 EDT, Height Start Date: 05/10/22 Status: Ordered UNIFINE PNTP MIS [id number] UNIFINE PNTP MIS [id number], See Instructions, # 100 each, 2 Refills, [...] capsule, 5 Refills, Maintenance, 11/28/22 11:00:00 EDT, [facility], 152.1, cm, 08/22/22 10:03:00 EST, Height Start Date: 11/28/22 Status: Ordered Problem List Condition Confirmation Course Effective Dates Status H ealth Status Informant Obesity (BMI 30-39.9) Confirmed Active Complicated bereavement Confirmed Active detention current use of insulin - checks glucose [...] Primary Care Member Role: PCP Address: Address: [address] [place] [id number]- Care Team Related Persons Name: TAYLOR CUEVAS Address: home [address] [place] [address] Name: COLEEN SANCHEZ
--- OUTSIDE RECORDS SUMMARY | 2023-07-10 16:09 | XMS_ITS | Continuity of Care Document ---
Author Name Unknown Organization [facility] Serjio lt Address [address] [place] [address]- Care Team Providers Care Dean Of Women Name Role Phone Georgie FREEMAN, Ezequiel Chino Primary Care Physician En[place] [facility] [place] Date(s): 05/08/23 - 06/07/23 [facility] Adult [address] [place] [address]- Allergies, Adverse Reactions, Alerts Substance Reaction Severity Status morphine anaflactic shock Active penicillins anaflactic shock Active Immunizations Given and Recorded Vaccine Date Status Refusal Reason [id number] 12y+ bivalent booster vax 11/27/22 Recorded influenza virus vaccine, inactivated 1 05/03/18 Gi adwoa influenza virus vaccine, inactivated 06/09/16 Give n influenza virus vaccine, inactivated 04/19/15 Give n tetanus/diphtheria/pertussis, acel(Tdap) 2 12/21/17 Given pneumococcal 23-valent vaccine 06/09/16 Given pneumococcal 13-valent vaccine 04/03/15 Given 1Result Comment: [05/03/2018] [facility]-[id number] 2Result Comment: [12/21/2017] [id number] Medications Anecream Topically, 3 times a day, [...] tablet, 5 Refills, Maintenance, 06/05/23 20:07:00 EST, [facility], 150.5, cm, 01/16/23 10:14:00 EDT, Height Start Date: 06/05/23 Status: Ordered atorvastatin 10 mg oral tablet 1 tablet, By Mouth, Daily, R4., # 28 tablet, 5 Refills, Maintenance, 06/05/23 20:07:00 EST, [facility], 150.5, cm, 01/16/23 10:14:00 EDT, Height [...] tablet, 11 Refills, Maintenance, 02/12/23 4:32:00 EDT, [facility], 150.5, cm, 01/16/23 10:14:00 EDT, Height Start Date: 02/12/23 Status: Ordered Diabetic Shoes Diabetic Shoes, See Instructions, # 1 each, Refills 1, Tot. 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, 03/10/17 10:06:57, Compound Start Date: 03/10/17 Status: Ordered FLUoxetine 40 mg oral capsule 1 capsule, By Mouth, Daily, R1., # 31 capsule, 5 Refills, Maintenance, 02/10/23 6:29:00 EDT, [facility], 150.5, cm, 01/16/23 10:14:00 EDT, Height Start Date: 02/10/23 Status: Ordered FreeStyle Yasmeen 2 Monitor See Instructions, # 1 each, Maintenance, Yasmeen 2 [place] only Pt will pay soto with [employer] coupon that I faxed Use to test BS qid for E11.9 IDDM, 03/30/23 10:20:00 EDT, Supply, 150.5, cm, 01/16/23 10:14:00 EDT, Height Start Date: 03/30/23 Status: Ordered furosemide 40 mg oral tablet 1, tablet, By Mouth, Daily, ^1R1., # 30 tablet, Refills 3, Tot. Refills 3, Maintenance, 02/09/23 18:26:00 EDT, Route to Pharmacy Electronically, [facility], 150.5, cm, 01/16/23 10:14:00 EDT, Height [...] mL, 5 Refills, Maintenance, 02/09/23 18:26:00 [facility], cm, 01/16/23 10:14:00 EDT, Height Start Date: 02/09/23 Status: Ordered levothyroxine 0.112 mg oral tablet 1 tablet, By Mouth, Daily, # 28 tablet, 1 Refills, Maintenance, 05/18/22 15:34:00 EDT, [facility], 152.1, cm, 05/08/22 11:14:00 EDT, Height [...] tablet, 3 Refills, Maintenance, 02/09/23 18:26:00 EDT, [facility], 150.5, cm, 01/16/23 10:14:00 EDT, Height Start Date: 02/09/23 Status: Ordered MetFORMIN (Eqv-Glucophage XR) 500 mg oral tablet, extended release See Instructions, TAKE 2 TABLETS BY MOUTH DAILY ^2R1, # 60 tablet, 5 Refills, Maintenance, 05/08/2314:13:00 EDT, [facility], 150.5, cm, 01/16/23 10:14:00 EDT, Height Start Date: 05/08/23 Status: Ordered Ocuvite Lutein By Mouth, Daily, 0 Refills, Maintenance, 04/03/15 13:16:39 Start Date: 04/03/15 Status: Ordered omeprazole 20 mg oral enteric coated capsule 1 capsule, By Mouth, Daily, R1., # 28 capsule, 5 Refills, Maintenance, 06/05/23 19:40:00 EST, [facility], 150.5, cm, 01/16/23 10:14:00 EDT, Height [...] PAIN Start Date: 09/24/21 Status: Ordered Pen [place], 31 G x 5 mm BD Ultra Fine III See Instructions, # 120 each, Refills 2, Tot. Refills 2, Maintenance, Use four times a day DM [id number] Office visit needed for further refills, 07/21/18 [...] capsule, 11 Refills, Maintenance, 04/23/23 4:15:00 EDT, [facility], Partial fill upon patient request if [...] Date: 08/21/22 Status: Ordered UNIFINE PNTP MIS [id number] UNIFINE PNTP MIS [id number], See Instructions, # 100 each, 1 Refills, Maintenance, DIRECTED FOUR TIMES DAILY, 05/10/22 10:46:00 EDT, 152.1, cm, 05/08/22 11:14:00 EDT, Height Start Date: 05/10/22 Status: Ordered UNIFINE PNTP MIS [id number] UNIFINE PNTP MIS [id number], See Instructions, # 100 each, 2 Refills, [...] capsule, 5 Refills, Maintenance, 11/28/22 11:00:00 EDT, [facility], 152.1, cm, 08/22/22 10:03:00 EST, Height Start Date: 11/28/22 Status: Ordered Problem List Condition Confirmation Course Effective Dates Status H ealth Status Informant Obesity (BMI 30-39.9) Confirmed Active 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
--- OUTSIDE RECORDS SUMMARY | 2023-07-10 16:09 | XMS_ITS | Continuity of Care Document ---
Author Name Unknown Organization [facility] Serjio lt Address [address] [place] [address]- Care Team Providers Care Boiler Erector Name Role Phone Georgie FREEMAN, Ezequiel Chino Primary Care Physician [phone] [place] [facility] [place]23 [place] 06/06/23 [facility] Adult [address] [place] [address]- Allergies, Adverse Reactions, Alerts Substance Reaction Severity Status morphine anaflactic shock Active penicillins anaflactic shock Active Immunizations Given and Recorded Vaccine Date Status Refusal Reason [id number] 12y+ bivalent booster vax 11/27/22 Recorded influenza virus vaccine, inactivated 1 05/03/18 Gi adwoa influenza virus vaccine, inactivated 06/09/16 Give n influenza virus vaccine, inactivated 04/19/15 Give n tetanus/diphtheria/pertussis, acel(Tdap) 2 12/21/17 Given pneumococcal 23-valent vaccine 06/09/16 Given pneumococcal 13-valent vaccine 04/03/15 Given 1Result Comment: [05/03/2018] [facility]-[id number] 2Result Comment: [12/21/2017] [id number] Medications Anecream Topically, 3 times a day, [...] tablet, 5 Refills, Maintenance, 06/05/23 20:07:00 EST, [facility], 150.5, cm, 01/16/23 10:14:00 EDT, Height Start Date: 06/05/23 Status: Ordered atorvastatin 10 mg oral tablet 1 tablet, By Mouth, Daily, R4., # 28 tablet, 5 Refills, Maintenance, 06/05/23 20:07:00 EST, [facility], 150.5, cm, 01/16/23 10:14:00 EDT, Height [...] tablet, 11 Refills, Maintenance, 02/12/23 4:32:00 EDT, [facility], 150.5, cm, 01/16/23 10:14:00 EDT, Height Start Date: 02/12/23 Status: Ordered Diabetic Shoes Diabetic Shoes, See Instructions, # 1 each, Refills 1, Tot. 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, 03/10/17 10:06:57, Compound Start Date: 03/10/17 Status: Ordered FLUoxetine 40 mg oral capsule 1 capsule, By Mouth, Daily, R1., # 31 capsule, 5 Refills, Maintenance, 02/10/23 6:29:00 EDT, [facility], 150.5, cm, 01/16/23 10:14:00 EDT, Height Start Date: 02/10/23 Status: Ordered FreeStyle Yasmeen 2 Monitor See Instructions, # 1 each, Maintenance, Yasmeen 2 [place] only Pt will pay soto with [employer] coupon that I faxed Use to test BS qid for E11.9 IDDM, 03/30/23 10:20:00 EDT, Supply, 150.5, cm, 01/16/23 10:14:00 EDT, Height Start Date: 03/30/23 Status: Ordered furosemide 40 mg oral tablet 1, tablet, By Mouth, Daily, ^1R1., # 30 tablet, Refills 3, Tot. Refills 3, Maintenance, 02/09/23 18:26:00 EDT, Route to Pharmacy Electronically, [facility], 150.5, cm, 01/16/23 10:14:00 EDT, Height [...] mL, 5 Refills, Maintenance, 02/09/23 18:26:00 [facility], cm, 01/16/23 10:14:00 EDT, Height Start Date: 02/09/23 Status: Ordered levothyroxine 0.112 mg oral tablet 1 tablet, By Mouth, Daily, # 28 tablet, 1 Refills, Maintenance, 05/18/22 15:34:00 EDT, [facility], 152.1, cm, 05/08/22 11:14:00 EDT, Height [...] tablet, 3 Refills, Maintenance, 02/09/23 18:26:00 EDT, [facility], 150.5, cm, 01/16/23 10:14:00 EDT, Height Start Date: 02/09/23 Status: Ordered MetFORMIN (Eqv-Glucophage XR) 500 mg oral tablet, extended release See Instructions, TAKE 2 TABLETS BY MOUTH DAILY ^2R1, # 60 tablet, 5 Refills, Maintenance, 05/08/2314:13:00 EDT, [facility], 150.5, cm, 01/16/23 10:14:00 EDT, Height Start Date: 05/08/23 Status: Ordered Ocuvite Lutein By Mouth, Daily, 0 Refills, Maintenance, 04/03/15 13:16:39 Start Date: 04/03/15 Status: Ordered omeprazole 20 mg oral enteric coated capsule 1 capsule, By Mouth, Daily, R1., # 28 capsule, 5 Refills, Maintenance, 06/05/23 19:40:00 EST, [facility], 150.5, cm, 01/16/23 10:14:00 EDT, Height [...] PAIN Start Date: 09/24/21 Status: Ordered Pen [place], 31 G x 5 mm BD Ultra Fine III See Instructions, # 120 each, Refills 2, Tot. Refills 2, Maintenance, Use four times a day DM [id number] Office visit needed for further refills, 07/21/18 [...] capsule, 11 Refills, Maintenance, 04/23/23 4:15:00 EDT, [facility], Partial fill upon patient request if [...] Date: 08/21/22 Status: Ordered UNIFINE PNTP MIS [id number] UNIFINE PNTP MIS [id number], See Instructions, # 100 each, 1 Refills, Maintenance, DIRECTED FOUR TIMES DAILY, 05/10/22 10:46:00 EDT, 152.1, cm, 05/08/22 11:14:00 EDT, Height Start Date: 05/10/22 Status: Ordered UNIFINE PNTP MIS [id number] UNIFINE PNTP MIS [id number], See Instructions, # 100 each, 2 Refills, [...] capsule, 5 Refills, Maintenance, 11/28/22 11:00:00 EDT, [facility], 152.1, cm, 08/22/22 10:03:00 EST, Height Start Date: 11/28/22 Status: Ordered Problem List Condition Confirmation Course Effective Dates Status H ealth Status Informant Obesity (BMI 30-39.9) Confirmed Active Complicated 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
--- OUTSIDE RECORDS SUMMARY | 2023-07-10 16:09 | XMS_ITS | Continuity of Care Document ---
Author Name Unknown Organization [facility] Conor Serjio lt Address [address] [place] [address]- Care Team Providers Care Nuclear Plant Technical Advisor Name Role Phone Ezequiel Jacques MD [id number] Adult [address] [place] [address]- Attending Physician: Ezequiel Jacques MD Allergies, Adverse Reactions, Alerts Substance Reaction Severity Status morphine anaflactic shock Active penicillins anaflactic shock Active Immunizations Given and Recorded Vaccine Date Status Refusal Reason [id number] 12y+ bivalent booster vax 11/27/22 Recorded influenza virus vaccine, inactivated 1 05/03/18 Gi adwoa influenza virus vaccine, inactivated 06/09/16 Give n influenza virus vaccine, inactivated 04/19/15 Give n tetanus/diphtheria/pertussis, acel(Tdap) 2 12/21/17 Given pneumococcal 23-valent vaccine 06/09/16 Given pneumococcal 13-valent vaccine 04/03/15 Given 1Result Comment: [05/03/2018] [facility]-[id number] 2Result Comment: [12/21/2017] [id number] Medications Anecream Topically, 3 times a day, [...] tablet, 5 Refills, Maintenance, 11/19/22 13:51:00 EDT, [facility], 152.1, cm, 08/22/22 10:03:00 EST, Height Start Date: 11/19/22 Status: Ordered atorvastatin 10 mg oral tablet 1 tablet, By Mouth, Daily, R4., # 28 tablet, 5 Refills, Maintenance, 11/05/22 6:36:00 EDT, [facility] 152[facility]1, cm, 08/22/22 10:03:00 EST, Height [...] tablet, 3 Refills, Maintenance, 01/14/23 15:48:00 EDT, [facility], 152.1, cm, 08/22/22 10:03:00 EST, Height Start Date: 01/14/23 Status: Ordered Diabetic Shoes Diabetic Shoes, See Instructions, # 1 each, Refills 1, Tot. 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, 03/10/17 10:06:57, Compound Start Date: 03/10/17 Status: Ordered FLUoxetine 40 mg oral capsule 1 capsule, By Mouth, Daily, R1., # 248 capsule, 0 Refills, Maintenance, 07/03/22 6:43:00 EST, [facility], 152.1, cm, 05/08/22 11:14:00 EDT, Height Start Date: 07/03/22 Status: Ordered furosemide 40 mg oral tablet 1, tablet, By Mouth, Daily, # 28 tablet, Refills 5, Tot. Refills 5, Maintenance, 08/21/22 16:13:00 EST, Route to Pharmacy Electronically, [facility], 152.1, cm, 05/08/22 11:14:00 EDT, Height [...] # 8each, 5 Refills, 05/28/22 13:24:00 EST, [facility], 152.1, cm, 05/08/22 11:14:00 EDT, Height Start Date: 05/28/22 Status: Ordered levothyroxine 0.112 mg oral tablet 1 tablet, By Mouth, Daily, # 28 tablet, 1 Refills, Maintenance, 05/18/22 15:34:00 EDT, [facility], 152.1, cm, 05/08/22 11:14:00 EDT, Height [...] tablet, 5 Refills, Maintenance, 08/21/22 13:11:00 EST, [facility], 152.1, cm, 05/08/22 11:14:00 EDT, Height Start Date: 08/21/22 Status: Ordered metFORMIN 500 mg oral tablet, extended release 2 tablet = 1,000 mg, By Mouth, Daily, # 60 tablet, 2 Refills, Maintenance, 01/14/23 15:49:00 EDT, [facility], Partial fill upon patient request if the prescription is for a schedule II opioiddrug., 152.1, cm, 08/22/22 10:03:00 EST, Height Start Date: 01/14/23 Status: Ordered Ocuvite Lutein By Mouth, Daily, 0 Refills, Maintenance, 04/03/15 13:16:39 Start Date: 04/03/15 Status: Ordered omeprazole 20 mg oral enteric coated capsule 1 capsule, By Mouth, Daily, R1., # 28 capsule, 5 Refills, Maintenance, 07/28/22 12:14:00 EST, [facility], 152.1, cm, 05/08/22 11:14:00 EDT, Height [...] PAIN Start Date: 09/24/21 Status: Ordered [place], 31 G x 5 mm BD Ultra Fine III See Instructions, # 120 each, Refills 2, Tot. Refills 2, Maintenance, Use four times a day DM [id number] Office visit needed for further refills, 07/21/18 [...] Date: 08/21/22 Status: Ordered UNIFINE PNTP MIS [id number] UNIFINE PNTP MIS [id number], See Instructions, # 100 each, 1 Refills, Maintenance, DIRECTED FOUR TIMES DAILY, 05/10/22 10:46:00 EDT, 152.1, cm, 05/08/22 11:14:00 EDT, Height Start Date: 05/10/22 Status: Ordered UNIFINE PNTP MIS [id number] UNIFINE PNTP MIS [id number], See Instructions, # 100 each, 2 Refills, [...] capsule, 5 Refills, Maintenance, 11/28/22 11:00:00 EDT, [facility], 152.1, cm, 08/22/22 10:03:00 EST, Height [...] recent to oldest [Reference Range]: 1 Height 150.5 cm (01/16/23 10:14 AM) Weight 73.6 kg (01/16/23 10:14 AM) Oxygen Saturation [94-100 %] 95 % (01/16/23 10:14 AM) Pulse Rate [55-90 bpm] 107 bpm *H* (01/16/23 10:14 AM) Body Mass Index [18.5-24.99 kg/m2] 32.49 kg/m2 *>HHI* (01/16/23 10:14 AM) Blood Pressure [90-138/55-84 mm Hg] 134/ 84mm Hg (01/16/23 10:14 AM) Mode of Delivery (Oxygen) Room air (01/16/23 10:14 AM) Blood pressure sites Arm, left (01/16/23 10:14 AM) Weight Obtained Via Standing scale (01/16/23 10:14 AM) Social History Social History Type Response Smoking Status Former smoker entered on: 09/14/17 Sex Note * Karla Ibarra: PERFORM, SIGN, VERIFY Event Display: Patient Education/Instruction Authored Date: [id number] [facility] *BMP So Conor Amador Clinical Summary Name STAS VILLANUEVA Age 82 Years 1940 PCP Georgie FREEMAN, Ezequiel Chino PCP Visit Date 01/16/2023 09:45:00 Additional Instructions: Scheduled Appointments?? Future Appointments ?No Future Appointments Scheduled Follow-Up Instructions ?? Diagnosis Hypothyroidism, unspecified; Hyperlipidemia, unspecified; Encounter for general adult medical examination without abnormal findings; Essential (primary) hypertension; Type 2 diabetes mellitus with mild nonproliferative diabetic retinopathy without macular edema, unspecified eye Medications: Please continue your medications until treatment is completed or stopped by your provider. Discuss any questions related to medications with your provider. Medications to Continue with No Changes These medications were not printed or sent to your pharmacy Aspirin (Aspirin Low Dose 81 mg oral delayed release tablet) 1 tab(s) Oral Daily. R1.. Refills: 5. Next Dose: Atorvastatin (atorvastatin 10 mg oral tablet) 1 tab(s) Oral Daily. R4.. Refills: 5. Next Dose: BuPROpion (buPROPion 200 mg/12 hours (SR) oral tablet, extended release) 1 tab(s) Oral twice a day.^1R1,1R4.. Refills: 3. Next Dose: Cholecalciferol (Vitamin D3 2000 intl units oral capsule) TAKE 1 CAPSULE BY MOUTH ONCE A DAY ^1R1. Refills: 5. Next Dose: Durable Medical Equipment (Yasmeen Sensors 14 day (dispense 2 monthly)) IDDM E11.9. Refills: 5. Next Dose: Durable Medical Equipment (one walker) Dispense one walker with wheels Diagnosis: back pain Please deliver. Refills: 0. Next Dose: Durable Medical Equipment ([place], 31 G x 5 mm BD [...] Pen 100 units/mL subcutaneous injection) INJECT SUBCUTANEOUSLY (UNDER THE SKIN) THREE TIMES DAILY WITH MEALS IF BLOOD SUGAR 120- 150 17 UNITS 151-200 19 UNITS 201-250 21 UNITS 251-300 23 UNITS 301-350 25 UNITS 351-400 27 UNITS OVER 400 29 UNITS AND CALL PCP (MAX 87 UNITSPER DAY). Refills: 2. Next Dose: Levothyroxine (levothyroxine 0.112 mg oral [...] extended release) 2 tab(s) Oral Daily. Refills: 2. Next Dose: Miscellaneous Rx (Auto Code Talking [...] Next Dose: Miscellaneous Rx (UNIFINE PNTP MIS [id number]) DIRECTED FOUR TIMES DAILY. Refills: 2. Next Dose: Miscellaneous Rx (UNIFINE PNTP MIS [id number]) DIRECTED FOUR TIMES DAILY. Refills: 1. Next [...] This Visit Future Orders ?Direct LDL? Order Date:01/16/23?- Complete on or after?01/16/23 ?Comprehensive Metabolic Panel? Order Date:01/16/23?- Complete on or after?01/16/23 ?Hemoglobin A1C (Monitoring)? Order Date:01/16/23?- Complete on or after?01/16/23 ?CBC w/ Differential? Order Date:01/16/23?- Complete on or after?01/16/23 ?TSH with T4 Reflex (Adults Only)? Order Date:01/16/23?- Complete on or after?01/16/23 Vital Signs Height 150.5 cm Weight 73.6 kg BMI 32.49 kg/m2 Blood Pressure 134 mm Hg/84 mm Hg Temperature Pulse Rate 107 bpm Respiratory Rate 02 Sat Mode of Delivery 95 %/Room air You can now view a summary of your hospital visit from the comfort of your home through a free online portal called [facility]. [facility] is a website that allows you to securely view your medical information including discharge summary, medications and follow-up visits. ??You can alsosend a secure electronic message to your doctor???s office to request appointments, renew medications or just ask a question. You can enroll at [email or web address] or register during your next office [...] primary care provider, you may find a [facility] provider by calling [facility] at [phone]. For information about the plan of care [...] Personnel Name: Georgie FREEMAN, Ezequiel Chino Position: [facility] Physician - Primary Care Member Role: PCP Address: Address: [address] [place] [address]- Care Team Related Persons Name: TAYLOR CUEVAS Address: home [address] [place] [id number] Name: COLEEN SANCHEZ
--- OUTSIDE RECORDS SUMMARY | 2023-07-10 16:09 | XMS_ITS | Continuity of Care Document ---
Author Name Unknown Organization [facility] Conor Serjio lt Address [address] [place] [address]- Care Team Providers Care Case Filler Name Role Phone Ezequiel Jacques MD [id number] Adult [address] [place] [address]- Attending Physician: Ezequiel Jacques MD Allergies, Adverse Reactions, Alerts Substance Reaction Severity Status morphine anaflactic shock Active penicillins anaflactic shock Active Immunizations Given and Recorded Vaccine Date Status Refusal Reason [id number] 12y+ bivalent booster vax 11/27/22 Recorded influenza virus vaccine, inactivated 1 05/03/18 Gi adwoa influenza virus vaccine, inactivated 06/09/16 Give n influenza virus vaccine, inactivated 04/19/15 Give n tetanus/diphtheria/pertussis, acel(Tdap) 2 12/21/17 Given pneumococcal 23-valent vaccine 06/09/16 Given pneumococcal 13-valent vaccine 04/03/15 Given 1Result Comment: [05/03/2018] [facility]-[id number] 2Result Comment: [12/21/2017] 82487-735-23 Medications Anecream Topically, 3 times a day, [...] tablet, 5 Refills, Maintenance, 06/05/23 20:07:00 EST, [facility], 150.5, cm, 01/16/23 10:14:00 EDT, Height Start Date: 06/05/23 Status: Ordered atorvastatin 10 mg oral tablet 1 tablet, By Mouth, Daily, R4., # 28 tablet, 5 Refills, Maintenance, 06/05/23 20:07:00 EST, [facility], 150.5, cm, 01/16/23 10:14:00 EDT, Height [...] tablet, 11 Refills, Maintenance, 02/12/23 4:32:00 EDT, [facility], 150.5, cm, 01/16/23 10:14:00 EDT, Height Start Date: 02/12/23 Status: Ordered Diabetic Shoes Diabetic Shoes, See Instructions, # 1 each, Refills 1, Tot. 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, 03/10/17 10:06:57, Compound Start Date: 03/10/17 Status: Ordered FLUoxetine 40 mg oral capsule 1 capsule, By Mouth, Daily, R1., # 31 capsule, 5 Refills, Maintenance, 02/10/23 6:29:00 EDT, [facility], 150.5, cm, 01/16/23 10:14:00 EDT, Height Start Date: 02/10/23 Status: Ordered FreeStyle Yasmeen 2 Monitor See Instructions, # 1 each, Maintenance, Yasmeen 2 [place] only Pt will pay soto with GoodRx coupon that I faxed Use to test BS qid for E11.9 IDDM, 03/30/23 10:20:00 EDT, Supply, 150.5, cm, 01/16/23 10:14:00 EDT, Height Start Date: 03/30/23 Status: Ordered furosemide 40 mg oral tablet 1, tablet, By Mouth, Daily, ^1R1., # 30 tablet, Refills 3, Tot. Refills 3, Maintenance, 02/09/23 18:26:00 EDT, [facility], 150.5, cm, 01/16/23 10:14:00 EDT, Height [...] mL, 5 Refills, Maintenance, 02/09/23 18:26:00 EDT, [facility], 150.5, cm, 01/16/23 10:14:00 EDT, Height Start Date: 02/09/23 Status: Ordered levothyroxine 0.112 mg oral tablet 1 tablet, By Mouth, Daily, # 28 tablet, 1 Refills, Maintenance, 05/18/22 15:34:00 EDT, [facility], 152.1, cm, 05/08/22 11:14:00 [...] tablet, 3 Refills, Maintenance, 02/09/23 18:26:00 EDT, [facility], 150.5, cm, 01/16/23 10:14:00 EDT, Height Start Date: 02/09/23 Status: Ordered MetFORMIN (Eqv-Glucophage XR) 500 mg oral tablet, extended release See Instructions, TAKE 2 TABLETS BY MOUTH DAILY ^2R1, # 60 tablet, 5 Refills, Maintenance, 05/08/2314:13:00 EDT, [facility], [facility], cm, 01/16/23 10:14:00 EDT, Height Start Date: 05/08/23 Status: Ordered Ocuvite Lutein By Mouth, Daily, 0 Refills, Maintenance, 04/03/15 13:16:39 Start Date: 04/03/15 Status: Ordered omeprazole 20 mg oral enteric coated capsule 1 capsule, By Mouth, Daily, R1., # 28 capsule, 5 Refills, Maintenance, 06/05/23 19:40:00 EST, [facility], 150.5, cm, 01/16/23 10:14:00 EDT, Height [...] PAIN Start Date: 09/24/21 Status: Ordered Pen [place], 31 G x 5 mm BD Ultra Fine III See Instructions, # 120 each, Refills 2, Tot. Refills 2, Maintenance, Use four times a day DM [id number] Office visit needed for further refills, 07/21/18 [...] capsule, 11 Refills, Maintenance, 04/23/23 4:15:00 EDT, [facility], Partial fill upon patient request if [...] Date: 08/21/22 Status: Ordered UNIFINE PNTP MIS [id number] UNIFINE PNTP MIS [id number], See Instructions, # 100 each, 1 Refills, Maintenance, DIRECTED FOUR TIMES DAILY, 05/10/22 10:46:00 EDT, 152.1, cm, 05/08/22 11:14:00 EDT, Height Start Date: 05/10/22 Status: Ordered UNIFINE PNTP MIS [id number] UNIFINE PNTP MIS [id number], See Instructions, # 100 each, 2 Refills, [...] team information Care Team Personnel Name: Hardeep ([facility]) Marina Position: [facility] digital forensics examiner Member Role: Director Furniture Name: Ezequiel Jacques MD Position: [facility] Physician - Primary Care Member Role: PCP Address: Address: [address] [place] [id number]- Name: Madhuri Leonard RN Position: [facility] RN Member Role: Primary Care Nurse Care Team Related Persons Name: TAYLOR CUEVAS Address: [address] [address] Name: COLEEN SANCHEZ
--- OUTSIDE RECORDS SUMMARY | 2023-07-10 16:09 | XMS_ITS | Continuity of Care Document ---
Author Name Unknown Organization [facility] Serjio lt Address [address] [place] [address]- Care Team Providers Care Elder Counselor Name Role Phone Georgie FREEMAN, Ezequiel Chino Primary Care Physician [place] [facility] [place] Date(s): 11/28/22 - 12/28/22 [facility] Adult [address] [place] [address]- Allergies, Adverse Reactions, Alerts Substance Reaction Severity Status morphine anaflactic shock Active penicillins anaflactic shock Active Immunizations Given and Recorded Vaccine Date Status Refusal Reason [id number] 12y+ bivalent booster vax 11/27/22 Recorded influenza virus vaccine, inactivated 1 05/03/18 Gi adwoa influenza virus vaccine, inactivated 06/09/16 Give n influenza virus vaccine, inactivated 04/19/15 Give n tetanus/diphtheria/pertussis, acel(Tdap) 2 12/21/17 Given pneumococcal 23-valent vaccine 06/09/16 Given pneumococcal 13-valent vaccine 04/03/15 Given 1Result Comment: [05/03/2018] [facility]-[id number] 2Result Comment: [12/21/2017] [id number] Medications Anecream Topically, 3 times a day, [...] tablet, 5 Refills, Maintenance, 11/19/22 13:51:00 EDT, [email or web address], 152.1, cm, 08/22/22 10:03:00 EST, Height Start Date: 11/19/22 Status: Ordered atorvastatin 10 mg oral tablet 1 tablet, By Mouth, Daily, R4., # 28 tablet, 5 Refills, Maintenance, 11/05/22 6:36:00 EDT, [email or web address], 152.1, cm, 08/22/22 10:03:00 EST, Height [...] tablet, 4 Refills, Maintenance, 09/12/22 11:22:00 EST, [email or web address], 152.1, cm, 08/22/22 10:03:00 EST, Height Start Date: 09/12/22 Status: Ordered Diabetic Shoes Diabetic Shoes, See Instructions, # 1 each, Refills 1, Tot. 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, 03/10/17 10:06:57, Compound Start Date: 03/10/17 Status: Ordered FLUoxetine 40 mg oral capsule 1 capsule, By Mouth, Daily, R1., # 248 capsule, 0 Refills, Maintenance, 07/03/22 6:43:00 EST, [email or web address], 152.1, cm, 05/08/22 11:14:00 EDT, Height Start Date: 07/03/22 Status: Ordered furosemide 40 mg oral tablet 1, tablet, By Mouth, Daily, # 28 tablet, Refills 5, Tot. Refills 5, Maintenance, 08/21/22 16:13:00 EST, Route to Pharmacy Electronically, [email or web address], 152.1, cm, 05/08/22 11:14:00 EDT, Height [...] # 8each, 5 Refills, 05/28/22 13:24:00 EST, [email or web address], 152.1, cm, 05/08/22 11:14:00 EDT, Height Start Date: 05/28/22 Status: Ordered levothyroxine 0.112 mg oral tablet 1 tablet, By Mouth, Daily, # 28 tablet, 1 Refills, Maintenance, 05/18/22 15:34:00 EDT, [facility], [facility], cm, 05/08/22 11:14:00 EDT, Height [...] tablet, 5 Refills, Maintenance, 08/21/22 13:11:00 EST, [email or web address], 152.1, cm, 05/08/22 11:14:00 EDT, Height Start Date: 08/21/22 Status: Ordered metFORMIN 500 mg oral tablet, extended release 2 tablet = 1,000 mg, By Mouth, Daily, # 60 tablet, 11 Refills, Maintenance, 05/30/22 6:18:00 EST, [email or web address], Partial fill upon patient request if the prescription is for a schedule II opioiddrug., 152.1, cm, 05/08/22 11:14:00 EDT, Height Start Date: 05/30/22 Status: Ordered Ocuvite Lutein By Mouth, Daily, 0 Refills, Maintenance, 04/03/15 13:16:39 Start Date: 04/03/15 Status: Ordered omeprazole 20 mg oral enteric coated capsule 1 capsule, By Mouth, Daily, R1., # 28 capsule, 5 Refills, Maintenance, 07/28/22 12:14:00 EST, [email or web address], 152.1, cm, 05/08/22 11:14:00 EDT, Height [...] PAIN Start Date: 09/24/21 Status: Ordered Pen [place], 31 G x 5 mm BD Ultra Fine III See Instructions, # 120 each, Refills 2, Tot. Refills 2, Maintenance, Use four times a day DM [id number] Office visit needed for further refills, 07/21/18 [...] Date: 08/21/22 Status: Ordered UNIFINE PNTP MIS [id number] UNIFINE PNTP MIS [id number], See Instructions, # 100 each, 1 Refills, Maintenance, DIRECTED FOUR TIMES DAILY, 05/10/22 10:46:00 EDT, 152.1, cm, 05/08/22 11:14:00 EDT, Height Start Date: 05/10/22 Status: Ordered UNIFINE PNTP MIS [id number] UNIFINE PNTP MIS [id number], See Instructions, # 100 each, 2 Refills, [...] capsule, 5 Refills, Maintenance, 11/28/22 11:00:00 EDT, [email or web address], 152.1, cm, 08/22/22 10:03:00 EST, Height Start Date: 11/28/22 Status: Ordered Problem List Condition Confirmation Course Effective Dates Status H ealth Status Informant Obesity (BMI 30-39.9) Confirmed Active 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
[2023-07-10 16:10] LABS: Basophils Absolute Auto 0.1 X10*3/uL (0.0-0.2); Basophils Percent Auto 0.4 % (0-2); Eosinophils Absolute Auto 0.1 X10*3/uL (0.0-0.4); Eosinophils Percent Auto 0.7 % (0-4); Hematocrit 41.5 % (37.0-47.0); Imm Gran Abs Auto 0.05 X10*3/uL (0.00-0.03); Imm Gran Pct Auto 0.3 % (0.0-0.4); Lymphocytes Absolute Auto 1.4 X10*3/uL (1.2-4.9); Lymphocytes Percent Auto 9.1 % (20-40); Mean Corpuscular HGB Conc 31.3 g/dl (31.0-35.0); Mean Corpuscular Hemoglobin 26.1 pg (27.0-33.0); Mean Corpuscular Volume 83.2 fL (80.0-98.0); Mean Platelet Volume 9.4 fL (9.4-12.3); Monocytes Absolute Auto 0.4 X10*3/uL (0.1-1.2); Monocytes Percent Auto 2.5 % (2-11); Neutrophils Absolute Auto 13.3 x10*3/uL (2.0-8.3); Platelet Count 609 X10*3/uL (160-400); Red Blood Count 4.99 X10*6/uL (4.20-5.50); Red Cell Distribution Width 14.9 % (11.0-16.0); White Blood Count 15.2 X10*3/uL (4.8-10.8)
[2023-07-10 16:14] LABS: Appearance Urine Clear; Color Urine Dark Yellow; Glucose Urine UA Negative (Negative); Leukocyte Esterase Urine Negative (Negative); Nitrite Urine Negative (Negative); PH 5.5 (5.0-9.0); Urine Blood Negative (Negative); Urine Ketones Negative (Negative); Urine Protein Negative (Neg-Trace)
[2023-07-10 16:23] LABS: Alanine Aminotransferase 15 U/L (0-31); Alkaline Phosphatase 67 U/L (39-117); Anion Gap 17 (12-20); Aspartate Amino Transferase 18 U/L (5-31); Bilirubin Direct < 0.2 mg/dL (0.0-0.5); Bilirubin Total 0.2 mg/dL (0.0-1.0); Blood Urea Nitrogen 25 mg/dL (9-16); Calcium 10.1 mg/dL (8.4-10.2); Carbon Dioxide 26 mmol/L (22-29); Chloride 104 mmol/L (96-108); Creatinine Clr Calc Pharmacy 36.2; Estimated Glomerular Filt Rate 43; Glucose Random 59 mg/dL (60-115); Lipase 44 U/L (8-78); Magnesium 1.9 mg/dL (1.6-2.6); Potassium 3.7 mmol/L (3.3-5.1); Sodium 143 mmol/L (135-145); Total Protein 7.9 g/dL (6.5-8.0); Troponin-I High Sensitivity < 2.7 ng/L (<3.5-17.0)
[2023-07-10 16:45] LABS: Influenza A PCR NEGATIVE (Negative); Influenza B PCR NEGATIVE (Negative); Resp Syncy Virus RNA Qual PCR NEGATIVE (Negative); SARS COV2 PCR INHOUSE NEGATIVE (Negative)
[2023-07-10 17:00] LABS: Glucose, Whole Blood 111 mg/dL (60-115)
--- NOTE | 2023-07-10 18:09 | PC.NURSE ---
patients neighbor june phone # [phone] would like to be contacts if patient dc, can assist patient getting into apartment.
[2023-07-10 18:43] VITALS: BP 143/74; PULSE 103; RESP 20; TEMP 36.7; O2SAT 95
== END 2023-07-10 19:27 | disposition home or self-care (01) ==
PROVIDERS: Physician Assistant; Emergency Provider Emergency Medicine Emergency Medical Services
DX: R10.10 Upper abdominal pain, unspecified (principal); R11.2 Nausea with vomiting, unspecified; R19.7 Diarrhea, unspecified; E11.65 Type 2 diabetes mellitus with hyperglycemia; Z20.822 Contact with and (suspected) exposure to COVID-19; Z20.828 Contact with and (suspected) exposure to other viral communicable diseases; Z79.4 Long term (current) use of insulin; Z79.84 Long term (current) use of oral hypoglycemic drugs; Z79.899 Other long term (current) drug therapy
CPT/HCPCS: 0241U; 74176; 80048; 80076; 81003; 82947; 83690; 83735; 84484; 85025; 93005; 96374; 99284; 99285; J2765

== ENCOUNTER → 2023-07-10 15:10 | Outpatient (BNV) | payer MEDICARE, SELFPAY | PROVIDERS: Emergency Provider Emergency Medicine Emergency Medical Services; Visit Provider Internal Medicine Cardiovascular Disease | DX: R11.2 Nausea with vomiting, unspecified (principal) | CPT/HCPCS: 93010 ==

== ENCOUNTER 2023-08-28 12:36 | Emergency (ER) | payer MEDICARE, SELFPAY ==
--- NOTE | ~2023-08-28 | CT_ITS ---
EXAMINATION: CT HEAD WITHOUT CONTRAST CT CERVICAL SPINE WITHOUT CONTRAST CLINICAL INFORMATION: 83-year-old female status post fall with head and neck trauma COMPARISON: 11/25/2021 TECHNIQUE: CT of the head and cervical spine were performed without intravenous contrast. Multiplanar reformats were rendered and reviewed. This CT examination was performed using dose optimization techniques as appropriate, variously including the following: *Automated exposure control *Adjustment of mA and/or kV according to patient size (this includes techniques or standardized protocols for targeted exams where dose is matched to indication/reason for exam; i.e. extremities or head) *Use of iterative reconstruction technique DLP: 577.88 mGy-for head and 326.91mGy-for the cervical spine FINDINGS: CT head: There is stable calcified 2.5 x 1.8 x 2.2 cm mass in the right occipitotemporal region consistent with the appearance of meningioma, not surrounded by edema or bleeding. In addition Changes of microangiopathy are stable through the deep white matter bilaterally. No evidence of acute intracranial hemorrhage, masses, midline shift, ischemic changes. Ventricles and sulci prominent due to global volume loss. No extra-axial collection is appreciated. The visualized paranasal sinuses and mastoid air cells are clear. CT cervical spine: The vertebral body heights appear maintained. No cervical spine fracture is seen. The cervical alignment appears normal. There is straightening of cervical lordosis due to muscle spasm there are mild multilevel degenerative changes with narrowing of the disc spaces at the level of C5-C6 and C6-C7 C7-T1 with grade 1 anterior listhesis at the level of C7-T1. No evidence of fractures or subluxation. Soft tissues unremarkable. The paraspinal soft tissues appear within normal limits. The partially imaged lung apices appear clear. CT/CT cervical spine wo IV con IMPRESSION: CT HEAD: 1. No acute intracranial finding. 2. Stable calcified meningioma in the right occipitotemporal region. 3. Changes of microangiopathy and global volume loss. CT CERVICAL SPINE: 1. No cervical spine fracture or traumatic malalignment identified. 2. Multilevel degenerative changes with grade 1 anterolisthesis at the level of C7-T1.
--- NOTE | ~2023-08-28 | XR_ITS ---
EXAMINATION: XR HIP, LEFT CLINICAL INFORMATION: Comminuted fracture left hip on CT. COMPARISON: CT abdomen pelvis performed earlier today. TECHNIQUE: Two views of the left hip. FINDINGS: There is a comminuted intertrochanteric fracture better visualized on CT. There is an avulsion fracture fragment greater trochanter. There is no dislocation. There is diffuse osteopenia. XR/XR hip LT w PEL1V IMPRESSION: Comminuted intertrochanteric fracture with avulsion fracture fragment greater trochanter. There is no dislocation. There is diffuse osteopenia. The fracture is better visualized on the CT abdomen exam.
--- NOTE | ~2023-08-28 | CT_ITS ---
EXAMINATION: CT HEAD WITHOUT CONTRAST CT CERVICAL SPINE WITHOUT CONTRAST CLINICAL INFORMATION: Pain status post fall. Head strike. COMPARISON: CT head 08/28/2023, 11/25/2021. TECHNIQUE: In Classroom [employer]utor images were obtained. CT imaging of the head and cervical spine was performed without contrast. Data was reformatted into multiplanar images at the acquisition workstation. This CT examination was performed using dose optimization techniques as appropriate, including one or more of the following: Automated exposure control, iterative reconstruction, and adjustment of technique factors (mA and/or kVp) according to patient size (this includes techniques or standardized protocols for targeted exams where dose is matched to indication/reason for exam). Fleischner Society criteria for the followup of incidental pulmonary nodules was implemented if appropriate. DLP: 1061 mGy-cm. FINDINGS: There is a heavily calcified dural based mass over the right cerebral convexity that has remained stable when compared to recent prior imaging from 08/28/2023 measuring 2.8 cm in maximal transaxial dimension. There is no acute intracranial hemorrhage or abnormal extra axial collection. No intracranial mass effect or hydrocephalus. There is relatively extensive confluent hypoattenuation throughout the periventricular white matter and marj that most likely represent a chronic manifestation of small vessel ischemia. Dixon-white matter differentiation is otherwise preserved and there is no evidence of acute territorial infarct. There are a few ill-defined sclerotic osseous lesions visualized within the calvarium. The skull base is grossly intact. There is trace fluid within the mastoid air cells. No active paranasal sinus disease. There is slight anterolisthesis of C4 on C5 and C7 on T1 related to advanced facet degenerative changes at these levels. Vertebral heights are preserved. No evidence of acute fracture. No abnormal prevertebral soft tissue swelling. There is loss of intervertebral disc height with associated sclerotic degenerative endplate changes and hypertrophic disc osteophyte spurring at multiple levels. Canal patency is not well assessed on this examination due to inherent limitations of CT without intrathecal contrast. There is at least mild canal stenosis at multiple levels. Uncovertebral joint spurring and facet degenerative change causes moderate to severe neuroforaminal encroachment at multiple levels. Heavily calcified atheromatous plaque involves the right carotid bifurcation. Visualized soft tissues of the neck are unremarkable. Lung apices are clear. CT/CT head/brain wo IV con IMPRESSION: No acute intracranial hemorrhage. There are a few ill-defined sclerotic osseous lesions visualized within the calvarium. These findings have remained stable when compared to prior CT imaging from 11/25/2021. A heavily calcified meningioma over the right cerebral convexity has remained unchanged when compared to recent prior imaging. No evidence of acute cervical spinal fracture. There is advanced multilevel degenerative spondylosis of the cervical spine with slight anterolisthesis of C4 on C5 and C7 on T1 related to advanced facet degenerative changes at these levels. There is at least mild canal stenosis at multiple levels. If there are clinical symptoms of compressive myelopathy then a dedicated cervical spine MRI can be obtained for better anatomic characterization of the cord and canal.
--- NOTE | ~2023-08-28 | CT_ITS ---
EXAMINATION: CT CHEST ABDOMEN, AND PELVIS WITHOUT CONTRAST CLINICAL INFORMATION: Status post fall with left hip fracture COMPARISON: CT abdomen and pelvis from 07/10/[address] chest and abdomen from 11/25/2021 TECHNIQUE: Multidetector volumetric CT imaging of the chest, abdomen, and pelvis was obtained without administration of intravenous contrast . Axial MIP volume rendering provided. Sagittal and coronal reformatted images were obtained. This CT examination was performed using dose optimization techniques as appropriate, variously including the following: *Automated exposure control *Adjustment of mA and/or kV according to patient size (this includes techniques or standardized protocols for targeted exams where dose is matched to indication/reason for exam; i.e. extremities or head) *Use of iterative reconstruction technique DLP: 263.71 mGy-cm for the chest and 476.17mGy-cm for the abdomen. FINDINGS: LUNGS: There is ill-defined groundglass opacity nodule is identified in the right middle lobe, measured 1.0 x 0.7 cm. There is 0.2 cm nodule seen in the right upper lobe image 89 series 30 MEDIASTINUM: The mediastinum appears unremarkable. There is trace of pericardial effusion CORONARY ARTERY CALCIFICATION: Heavily calcifications present PLEURA: There is no pleural effusion. No pleural mass or thickening. AXILLA: No lymphadenopathy by size criteria. LIVER, GALLBLADDER, AND BILIARY TREE: The liver appears unremarkable in size, shape, and attenuation. No focal hepatic lesion or biliary ductal dilatation is appreciated. Gallbladder is surgically absent. PANCREAS: Unremarkable SPLEEN: Unremarkable ADRENAL GLANDS: There is left adrenal gland nodule, measured 2.0 x 2.1 cm stable since previous study, with attenuation of 19 HU, most likely adenoma. Right adrenal gland is unremarkable. KIDNEYS AND URETERS: Left kidney demonstrate exophytic upper pole cyst measured 2.5 cm. Right kidney revealed small exophytic cyst in upper pole. There is no hydroureteronephrosis or nephrolithiasis. BLADDER: Unremarkable GASTROINTESTINAL TRACT: There are changes of colonic diverticulosis without diverticulitis. No evidence of colitis or bowel obstruction. Appendix is not seen. ABDOMINAL WALL: There is mesh in the right upper quadrant. No evidence of abdominal herniations. LYMPH NODES: No evidence of adenopathy by size criteria. VASCULAR: Atherosclerotic calcifications seen in otherwise unremarkable aorta PELVIC VISCERA: There is stable homogeneous mass in the left adnexa measured 4.1 x 3.8 x 4.7 cm. OSSEOUS STRUCTURES: There is comminuted fracture of left hip with avulsion off the greater trochanter CT/CT abdomen pelvis wo IV con IMPRESSION: 1. Comminuted fracture of left hip with avulsion off the greater trochanter. 2. Groundglass opacity nodule in the right middle lobe and 0.2 cm nodule in the right upper lobe. 3. Stable left adrenal gland adenoma. 4. Stable left adnexal mass. 5. Diverticulosis without diverticulitis.
[2023-08-28 12:54] VITALS: BP 179/91; BP 192/97; PULSE 96; PULSE 98; RESP 17; TEMP 36.8; O2SAT 94; O2SAT 95; BMI 30.9
--- OUTSIDE RECORDS SUMMARY | 2023-08-28 13:09 | XMS_ITS | Continuity of Care Document ---
Author Name Unknown Organization [facility] Serjio lt Address [address] [place] [address]- Care Team Providers Care Pan Helper Name Role Phone Georgie FREEMAN, Ezequiel Chino Primary Care Physician [place] [facility] [place] 08[place]13/23 [facility] Adult [address] [place] [address]- Allergies, Adverse Reactions, Alerts Substance Reaction Severity Status morphine anaflactic shock Active penicillins anaflactic shock Active Immunizations Given and Recorded Vaccine Date Status Refusal Reason tetanus/diphtheria/pertussis, acel(Tdap) 07/25/23 Given tetanus/diphtheria/pertussis, acel(Tdap) 1 12/21/17 Given [id number] 12y+ bivalent booster vax 11/27/22 Recorded influenza virus vaccine, inactivated 2 05/03/18 Gi adwoa influenza virus vaccine, inactivated 06/09/16 Give n influenza virus vaccine, inactivated 04/19/15 Give n pneumococcal 23-valent vaccine 06/09/16 Given pneumococcal 13-valent vaccine 04/03/15 Given 1Result Comment: [12/21/2017] [id number] 2Result Comment: [05/03/2018] [facility]-[id number] Medications Aspirin Low Dose 81 mg oral delayed release tablet 1 tablet, By Mouth, Daily, R1., # 30 tablet, 5 Refills, Maintenance, 06/05/23 20:07:00 EST, [email or web address], 150.5, cm, 01/16/23 10:14:00 EDT, Height Start Date: 06/05/23 Status: Ordered atorvastatin 10 mg oral tablet 1 tablet, By Mouth, Daily, R4., # 28 tablet, 5 Refills, Maintenance, 11/17/23 20:07:00 EST, [facility], 150.5, cm, 01/16/23 10:14:00 EDT, Height Start Date: 06/05/23 Status: Ordered buPROPion 200 mg/12 hours (SR) oral tablet, extended release 1 tablet, By Mouth, 2 times a day, # 60 tablet, 11 Refills, Maintenance, 02/12/23 4:32:00 EDT, [facility], 150.5, cm, 01/16/23 10:14:00 EDT, Height Start Date: 02/12/23 Status: Ordered EASY TOUCH PEN NEED 31G X 5 MM MISC EASY TOUCH PEN NEED 31G X 5 MM MISC, See Instructions, # 100 each, 5 Refills, Maintenance, DIRECTED FOUR TIMES DAILY, 07/27/23 9:28:00 EST, 150, cm, 07/27/23 7:15:00 EST, Height, 72, kg, 07/26/23 0:10:00 EST, Dry Weight Start Date: 07/27/23 Status: Ordered FLUoxetine 40 mg oral capsule 1 capsule, By Mouth, Daily, R1., # 31 capsule, 5 Refills, Maintenance, 08/06/23 15:49:00 EST, [facility], 150, cm, 07/29/23 4:29:00 EST, Height, 72, kg, 07/26/23 0:10:00 EST, Dry Weight Start Date: 08/06/23 Status: Ordered furosemide 40 mg oral tablet 1, tablet, By Mouth, Daily, ^1R1., # 30 tablet, Refills 5, Maintenance, 07/01/23 10:17:00 EST, Route to Pharmacy Electronically, [facility], 150.5, cm, 01/16/23 10:14:00 EDT, Height Start Date: 07/01/23 Status: Ordered Levemir FlexPen 100 units/mL subcutaneous solution See Instructions, INJECT 8 UNITS SUBCUTANEOUSLY (UNDER THE SKIN) EVERY MORNING ONLY IF FASTING MORNING BLOOD SUGAR >150., # 24 mL, 5 Refills, Maintenance, 02/09/23 18:26:00 EDT, [facility], 150.5, cm, 01/16/23 10:14:00 EDT, Height Start Date: 02/09/23 Status: Ordered omeprazole 20 mg oral enteric coated capsule 1 capsule, By Mouth, Daily, R1., # 28 capsule, 5 Refills, Maintenance, 06/05/23 19:40:00 EST, [facility], 150.5, cm, 01/16/23 10:14:00 EDT, Height Start Date: 06/05/23 Status: Ordered Tylenol 325 mg oral tablet 650 mg, 2, tablet, By Mouth, 4 times a day, PRN, # 120 tablet, Refills 0, Tot. Refills 0, Maintenance, for pain, 08/09/23 13:27:00 EST, [facility], Partial fill upon patient request if the prescription is for a schedule II opioid drug. Start Date: 08/09/23 Status: Ordered Vitamin D3 2000 intl units oral capsule 1 capsule, By Mouth, Daily, R1., # 28 capsule, 5 Refills, Maintenance, 07/01/23 10:15:00 EST, [facility], 150.5, cm, 01/16/23 10:14:00 EDT, Height Start Date: 07/01/23 Status: Ordered Problem List Condition Confirmation Course Effective Dates Status H ealth Status Informant Obesity (BMI 30-39.9) Confirmed Active Complicated bereavement Confirmed Active snf current use of insulin - checks glucose and administers insulin 4 times daily Confirmed Active Exudative macular degeneration Confirmed Active Displaced fracture of lesser trochanter of left femur Confirmed Active GERD (gastroesophageal reflux disease) Confirmed [...] Care team information Care Team Personnel Name: Shelbi Montaño RN Position: S RN Member Role: Primary Care Nurse Name: Oliva Stone RN Position: S RN Member Role: Primary Care Nurse Name: Shahnaz Peters RN Position: S RN Member Role: Primary Care Nurse Name: Triny Cooper RN Position: S RN Member Role: Primary Care Nurse Name: Hardeep ZambranoKennettjaron) Marina Position: S piece jobber Member Role: Meter Technician Name: Georgie FREEMAN, Ezequiel Chino Position: [facility] Physician - Primary Care Member Role: PCP Address: Address: [address] [place] [address]- Name: Madhuri Leonard RN Position: [facility] SN RN Member Role: Primary Care Nurse Name: Sherry Lopez RN Position: [facility] RN Member Role: Primary Care Nurse Care Team Related Persons Name: TAYLOR CUEVAS Address: home [address] [place] [id number] Name: COLEEN SANCHEZ
--- OUTSIDE RECORDS SUMMARY | 2023-08-28 13:10 | XMS_ITS | Continuity of Care Document ---
Author Name Unknown Organization [facility] Serjio lt Address [address] [place] [address]- Care Team Providers Care Natural Resources Engineer Name Role Phone Georgie FREEMAN, Ezequiel Chino Primary Care Physician Encounter [facility] [place] Date(s): 07/16/23 - 08/15/23 [facility] Adult [address] [place] [address]- Allergies, Adverse Reactions, Alerts Substance Reaction Severity Status morphine anaflactic shock Active penicillins anaflactic shock Active Immunizations Given and Recorded Vaccine Date Status Refusal Reason tetanus/diphtheria/pertussis, acel(Tdap) 07/25/23 Given tetanus/diphtheria/pertussis, acel(Tdap) 1 12/21/17 Given [id number] 12y+ bivalent booster vax 11/27/22 Recorded influenza virus vaccine, inactivated 2 05/03/18 Gi adwoa influenza virus vaccine, inactivated 06/09/16 Give n influenza virus vaccine, inactivated 04/19/15 Give n pneumococcal 23-valent vaccine 06/09/16 Given pneumococcal 13-valent vaccine 04/03/15 Given 1Result Comment: [12/21/2017] [id number] 2Result Comment: [05/03/2018] [facility]-[id number] Medications Aspirin Low Dose 81 mg oral delayed release tablet 1 tablet, By Mouth, Daily, R1., # 30 tablet, 5 Refills, Maintenance, 06/05/23 20:07:00 EST, [facility], 150.5, cm, 01/16/23 10:14:00 EDT, Height Start Date: 06/05/23 Status: Ordered atorvastatin 10 mg oral tablet 1 tablet, By Mouth, Daily, R4., # 28 tablet, 5 Refills, Maintenance, 06/05/23 20:07:00 EST, [facility], 150.5, cm, 01/16/23 10:14:00 EDT, Height Start Date: 06/05/23 Status: Ordered buPROPion 200 mg/12 hours (SR) oral tablet, extended release 1 tablet, By Mouth, 2 times a day, # 60 tablet, 11 Refills, Maintenance, 02/12/23 4:32:00 EDT, [facility], 150.5, cm, 01/16/23 10:14:00 [...] capsule, 5 Refills, Maintenance, 08/06/23 15:49:00 EST, [email or web address], 150, cm, 07/29/23 4:29:00 EST, Height, 72, kg, 07/26/23 0:10:00 EST, Dry Weight Start Date: 08/06/23 Status: Ordered furosemide 40 mg oral tablet 1, tablet, By Mouth, Daily, ^1R1., # 30 tablet, Refills 5, Maintenance, 07/01/23 10:17:00 EST, Route to Pharmacy Electronically, [facility], 150.5, cm, 01/16/23 10:14:00 EDT, Height Start Date: 07/01/23 Status: Ordered Levemir FlexPen 100 units/mL subcutaneous solution See Instructions, INJECT 8 UNITS SUBCUTANEOUSLY (UNDER THE SKIN) EVERY MORNING ONLY IF FASTING MORNING BLOOD SUGAR >150., # 24 mL, 5 Refills, Maintenance, 02/09/23 18:26:00 EDT, [facility], 150.5, cm, 01/16/23 10:14:00 EDT, Height Start Date: 02/09/23 Status: Ordered omeprazole 20 mg oral enteric coated capsule 1 capsule, By Mouth, Daily, R1., # 28 capsule, 5 Refills, Maintenance, 06/05/23 19:40:00 EST, [facility], 150.5, cm, 01/16/23 10:14:00 EDT, Height [...] capsule, 5 Refills, Maintenance, 07/01/23 10:15:00 EST, [facility], 150.5, cm, 01/16/23 10:14:00 EDT, Height Start Date: 07/01/23 Status: Ordered Problem List Condition Confirmation Course Effective Dates Status H ealth Status Informant Obesity (BMI 30-39.9) Confirmed Active Complicated bereavement Confirmed Active correction current use of insulin - checks glucose [...] Member Role: Primary Care Nurse Name: Hardeep ZambranoVarneyjaron) Marina Position: [facility] pt escort Member Role: Home Weatherizing Worker Name: Georgie FREEMAN, Ezequiel Chino Position: [facility] Physician - Primary Care Member Role: PCP Address: Address: [address] [place] [address]- Name: Madhuri Leonard RN Position: [facility] SN RN Member Role: Primary Care Nurse Name: Sherry Lopez RN Position: [facility] RN Member Role: Primary Care Nurse Care Team Related Persons Name: TAYLOR CUEVAS Address: [address] [address] Name: COLEEN SANCHEZ
--- OUTSIDE RECORDS SUMMARY | 2023-08-28 13:10 | XMS_ITS | Continuity of Care Document ---
Author Name Unknown Organization [facility] ter Address [address] [place] [id number]- Care Team Providers Care Personal Lines Sales Rep Name Role Phone Georgie FREEMAN, Ezequiel Chino Primary Care Physician Encounter [facility] Date(s): 07/28/23 - 07/29/[address] [address]- Discharge Disposition: A-D/C Home Attending Physician: Fiordaliza Duque MD Admitting Physician: Sergio Hart MD Referring Physician: Not on Staff, Referring MD Allergies, Adverse Reactions, Alerts Substance Reaction Severity Status morphine anaflactic shock Active penicillins anaflactic shock Active Immunizations Given and Recorded Vaccine Date Status Refusal Reason tetanus/diphtheria/pertussis, acel(Tdap) 07/25/23 Given tetanus/diphtheria/pertussis, acel(Tdap) 1 12/21/17 Given [id number] 12y+ bivalent booster vax 11/27/22 Recorded influenza virus vaccine, inactivated 2 05/03/18 Gi adwoa influenza virus vaccine, inactivated 06/09/16 Give n influenza virus vaccine, inactivated 04/19/15 Give n pneumococcal 23-valent vaccine 06/09/16 Given pneumococcal 13-valent vaccine 04/03/15 Given 1Result Comment: [12/21/2017] [id number] 2Result Comment: [05/03/2018] [facility]-[id number] Medications Aspirin Low Dose 81 mg oral delayed release tablet 1 tablet, By Mouth, Daily, R1., # 30 tablet, 5 Refills, Maintenance, 06/05/23 20:07:00 EST, [facility], 150.5, cm, 01/16/23 10:14:00 EDT, Height Start Date: 06/05/23 Status: Ordered atorvastatin 10 mg oral tablet 1 tablet, By Mouth, Daily, R4., # 28 tablet, 5 Refills, Maintenance, 06/05/23 20:07:00 EST, [facility], 150.5, cm, 01/16/23 10:14:00 EDT, Height Start Date: 06/05/23 Status: Ordered buPROPion 200 mg/12 hours (SR) oral tablet, extended release 1 tablet, By Mouth, 2 times a day, # 60 tablet, 11 Refills, Maintenance, 02/12/23 4:32:00 EDT, [facility], 150.5, cm, 01/16/23 10:14:00 EDT, [...] capsule, 5 Refills, Maintenance, 02/10/23 6:29:00 EDT, [facility], 150.5, cm, 01/16/23 10:14:00 EDT, Height Start Date: 02/10/23 Status: Ordered furosemide 40 mg oral tablet 1, tablet, By Mouth, Daily, ^1R1., # 30 tablet, Refills 5, Maintenance, 07/01/23 10:17:00 EST, Route to Pharmacy Electronically, [facility], 150.5, cm, 01/16/23 10:14:00 EDT, Height Start Date: 07/01/23 Status: Ordered Levemir FlexPen 100 units/mL subcutaneous solution See Instructions, INJECT 8 UNITS SUBCUTANEOUSLY (UNDER THE SKIN) EVERY MORNING ONLY IF FASTING MORNING BLOOD SUGAR >150., # 24 mL, 5 Refills, Maintenance, 02/09/23 18:26:00 EDT, [facility], 150.5, cm, 01/16/23 10:14:00 EDT, Height Start Date: 02/09/23 Status: Ordered lisinopril 10 mg oral tablet 10 mg, Tablet, By Mouth, 07/29/23 9:00:00 EST Start Date: 07/29/23 Stop Date: 07/29/23 Status: Completed omeprazole 20 mg oral enteric coated capsule 1 capsule, By Mouth, Daily, R1., # 28 capsule, 5 Refills, Maintenance, 06/05/23 19:40:00 EST, [facility], 150.5, cm, 01/16/23 10:14:00 EDT, Height Start Date: 06/05/23 Status: Ordered Vitamin D3 2000 intl units oral capsule 1 capsule, By Mouth, Daily, R1., # 28 capsule, 5 Refills, Maintenance, 07/01/23 10:15:00 EST, [facility], 150.5, cm, 01/16/23 10:14:00 EDT, Height [...] 2 with diabetic background retinopathy Confirmed Active Results Radiology Reports * Exam Date Time Procedure Performing Provider Status 07/28/23 5:[address] Pelvis W/O Contrast Tamiko Poe; Wen (Verified) Notes: (CT Pelvis W/O Contrast) Reason For Exam: severe pain on left side;Pain RESULT: CT Pelvis W/O Contrast CT Pelvis W/O Contrast Reason: Pain; severe pain on left side; Clinical Question(s): Bone Lesion; fracture; Order Comment: TECHNIQUE: Spiral CT without IV contrast through the pelvis only formatted in 3 planes. Enteric contrast without administered. Automatic tube modulation and/or iterative dose reconstruction were usedto optimize exposure parameters. COMPARISON: None FINDINGS: Specimen Technician View Findings, Lines and Tubes: None. Visualized bowel: Diverticulosis of the descending and sigmoid colon. Appendix: No evidence of acute appendicitis. Bladder: Unremarkable. Reproductive organs: There is a 5.1 x 4.8 x 4.3 cm cyst within the left ovary. Peritoneum and retroperitoneum: No ascites or pneumoperitoneum. No omental or mesenteric lesions. Lymph nodes: No enlarged lymph nodes. Blood vessels: Normal. Pelvic soft tissues: Unremarkable. Bones: There is comminuted fracture of the left greater trochanter with displacement. No other fractures seen. 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 There is mild osteoarthritis of bilateral SI joints. There is severe disc degenerative disease at L3-L4 and L4-L5. IMPRESSION: Comminuted mildly displaced fracture of the left. Trochanter. 5.1 x 4.8 x 4.3 cm the left ovarian cyst, similar to the previous exam dated 10/05/2020 Diverticulosis of the descending and sigmoid colon without definite evidence of diverticulitis An actionable message ([place]) has been communicated via the [employer] system on 07/28/2023 6:57 PM, Message ID [id number]. WSN: [id number] Ordering Physician: Fiordaliza Duque Dictated By: Lia Adler MD Dictated Date/Time: 07/28/23 6:57 pm Reviewed By: Lia Adler MD Signed By: Lia Adler MD Signed Date/Time: 07/28/23 6:57 pm Transcribed By: MIRNA Transcribed Date/Time: 07/28/23 6:46 pm * Exam Date Time Procedure Performing Provider Status 07/27/23 2:[address] Cervical Spine W/O Contrast Fatimah Mills; Auth (Verified) Notes: (CT Cervical Spine W/O Contrast) Reason For Exam: Unwitnessed fall;Other: RESULT: CT Cervical Spine W/O Contrast CT Head/Brain W/O Contrast, CT Cervical Spine W/O Contrast INDICATION: Reason: Other:; Unwitnessed fall; Clinical Question(s): Hematoma TECHNIQUE: Noncontrast head CT using axial technique was reconstructed in axial and coronal planes.Noncontrast spiral CT through the cervical spine was formatted in 3 planes. Automatic tube modulation was used for the cervical spine and iterative dose reconstruction was used for both the head and cervical spine to optimize scan parameters and image quality. CTDIvol Body: 13.50 mGy, DLP Body: 321 mGy*cm. CTDIvol Head: 38.80 mGy, DLP Head: 672 mGy*cm. COMPARISON: 07/25/2023 FINDINGS: Specimen Technician View Findings, Lines and Tubes: None. BRAIN AND EXTRA-AXIAL SPACES: Unchanged peripherally calcified extra-axial 2.7 cm right temporooccipital mass. No parenchymal hemorrhage, midline shift, or mass effect. Dixon-white matter differentiation is well preserved. No acute infarct. Negative insular ribbon sign. Atherosclerotic vascular calcification of the carotid arteries but negative hyperdense vessel sign. Moderate prominence of the ventricles and sulci consistent with parenchymal volume loss. Moderate low-density white matter changes. No subarachnoid hemorrhage. No subdural or epidural collection. CALVARIUM, SKULL BASE, AND SOFT TISSUES: No fractures or suspicious bony lesions. The paranasal sinuses and mastoid air cells are clear. Status-post bilateral lens extraction. Unchanged right frontal scalp hematoma. CERVICAL SPINE: No fracture. No acute osseous abnormalities. Normal alignment. No locked or perched facet. Moderate multilevel degenerative disc space narrowingand end plate irregularity. OTHER BONES: No acute abnormality. CERVICAL SOFT TISSUES AND LUNG APICES: Normal soft tissues. Visualized lung apices are clear. IMPRESSION: 1. No evidence of acute intracranial abnormality. 2. No evidence of acute fracture or dislocation of the cervical spine. WSN: [id number] Ordering Physician: Romel Casas Dictated By: Michael Euceda MD Dictated Date/Time: 07/27/23 2:13 pm Reviewed By: Michael Euceda MD Signed By: Michael Euceda MD Signed Date/Time: 07/27/23 2:13 pm Transcribed By: MIRNA Transcribed Date/Time: 07/27/23 2:09 pm * Exam Date Time Procedure Performing Provider Status 07/27/23 2:[address] Head/Brain W/O Contrast Akash Mills eedeb; Auth (Verified) Notes: (CT Head/Brain W/O Contrast) Reason For Exam: Unwitnessed fall;Other: RESULT: CT Head/Brain W/O Contrast CT Head/Brain W/O Contrast, CT Cervical Spine W/O Contrast INDICATION: Reason: Other:; Unwitnessed fall; Clinical Question(s): Hematoma TECHNIQUE: Noncontrast head CT using axial technique was reconstructed in axial and coronal planes.Noncontrast spiral CT through the cervical spine was formatted in 3 planes. Automatic tube modulation was used for the cervical spine and iterative dose reconstruction was used for both the head and cervical spine to optimize scan parameters and image quality. CTDIvol Body: 13.50 mGy, DLP Body: 321 mGy*cm. CTDIvol Head: 38.80 mGy, DLP Head: 672 mGy*cm. COMPARISON: 07/25/2023 FINDINGS: Specimen Technician View Findings, Lines and Tubes: None. BRAIN AND EXTRA-AXIAL SPACES: Unchanged peripherally calcified extra-axial 2.7 cm right temporooccipital mass. No parenchymal hemorrhage, midline shift, or mass effect. Dixon-white matter differentiation is well preserved. No acute infarct. Negative insular ribbon sign. Atherosclerotic vascular calcification of the carotid arteries but negative hyperdense vessel sign. Moderate prominence of the ventricles and sulci consistent with parenchymal volume loss. Moderate low-density white matter changes. No subarachnoid hemorrhage. No subdural or epidural collection. CALVARIUM, SKULL BASE, AND SOFT TISSUES: No fractures or suspicious bony lesions. The paranasal sinuses and mastoid air cells are clear. Status-post bilateral lens extraction. Unchanged right frontal scalp hematoma. CERVICAL SPINE: No fracture. No acute osseous abnormalities. Normal alignment. No locked or perched facet. Moderate multilevel degenerative disc space narrowingand end plate irregularity. OTHER BONES: No acute abnormality. CERVICAL SOFT TISSUES AND LUNG APICES: Normal soft tissues. Visualized lung apices are clear. IMPRESSION: 1. No evidence of acute intracranial abnormality. 2. No evidence of acute fracture or dislocation of the cervical spine. WSN: [id number] Ordering Physician: Romel Casas Dictated By: Michael Euceda MD Dictated Date/Time: 07/27/23 2:13 pm Reviewed By: Michael Euceda MD Signed By: Michael Euceda MD Signed Date/Time: 07/27/23 2:13 pm Transcribed By: MIRNA Transcribed Date/Time: 07/27/23 2:09 pm * Exam Date Time Procedure Performing Provider Status 07/27/23 1:20 PM XR Hip w/Pelvis 2-3 View Left Prakash , Ol ivia; Auth (Verified) Notes: (XR Hip w/Pelvis 2-3 View Left) Reason For Exam: Fall with Left hip pain;Other: RESULT: XR Hip w/Pelvis 2-3 View Left XR Hip w/Pelvis 2-3 View Left Reason: Fall with Left hip pain; Clinical Question(s): Fracture COMPARISON: CT abdomen and pelvis 10/05/2020, pelvic radiographs 01/28/2016 FINDINGS: There is no fracture or dislocation. Mild degenerative change left hip.. Moderate degenerative changes throughout the lower lumbar spine. Normal soft tissues. Scattered vascular calcifications. IMPRESSION: Mild degenerative change left hip joint. No acute fracture or dislocation seen involving the left hip. I have personally reviewed the images and I agree with this report. WSN: [id number] Ordering Physician: Romel Casas Dictated By: Loida Villalta MD Dictated Date/Time: 07/27/23 2:15 pm Reviewed By: Gwyn Murdock MD, V Signed By: Gwyn Murdock MD, V Signed Date/Time: 07/27/23 2:20 pm Transcribed By: MIRNA Transcribed Date/Time: 07/27/23 1:47 pm * Exam Date Time Procedure Performing Provider Status 07/25/23 3:28 PM Humerus Min 2 Views Right Viv Sharma; Wen (Verified) Notes: (Humerus Min 2 Views Right) Reason For Exam: with Pain;Trauma RESULT: Humerus Min 2 Views Right Humerus Min 2 Views Right, 2 views Hx of Present Illness: Fall with Head Strike; Reason: Trauma; with Pain; Clinical Question(s): Fracture; Order Comment: 07 25 2023 12:50:52 EST collared COMPARISON: None. FINDINGS: No fractures or bone lesions. No glenohumeral dislocation. Mild right acromioclavicular and glenohumeral degenerative changes. Normal soft tissues. IMPRESSION: No definite fracture. No dislocation. WSN: [id number] Ordering Physician: Yamilka Garcia MD Dictated By: Remi Saeed MD Dictated Date/Time: 07/25/23 3:57 pm Reviewed By: Remi Saeed MD Signed By: Remi Saeed MD Signed Date/Time: 07/25/23 3:57 pm Transcribed By: MIRNA Transcribed Date/Time: 07/25/23 3:55 pm * Exam Date Time Procedure Performing Provider Status 07/25/23 3:28 PM Knee 1 or 2 Views Right Zachary , Viv; Au th (Verified) Notes: (Knee 1 or 2 Views Right) Reason For Exam: with Pain;Trauma RESULT: Knee 1 or 2 Views Right Knee 1 or 2 Views Right, views Hx of Present Illness: Fall with Head Strike; Reason: Trauma; with Pain; Clinical Question(s): Fracture; Special Instructions: Patella ([place]) COMPARISON: None. FINDINGS: No bone lesions or fractures. There is [id number] medial compartment cartilage thinning with moderate spurring. Mild spurring lateral compartment and patellofemoral compartment.. No osteochondral defects or intra-articular loose bodies. No evidence of joint effusion. Moderate arterial calcification. IMPRESSION: No acute findings. WSN: [id number] Ordering Physician: Yamilka Garcia MD Dictated By: Michael Thompson MD Dictated Date/Time: 07/25/23 3:38 pm Reviewed By: Michael Thompson MD Signed By: Michael Thompson MD Signed Date/Time: 07/25/23 3:38 pm Transcribed By: MIRNA Transcribed Date/Time: 07/25/23 3:38 pm * Exam Date Time Procedure Performing Provider Status 07/25/23 3:28 PM Knee 1 or 2 Views Left Viv Sharma; Aut h (Verified) Notes: (Knee 1 or 2 Views Left) Reason For Exam: with Pain;Trauma RESULT: Knee 1 or 2 Views Left Knee 1 or 2 Views Left, views Hx of Present Illness: Fall with Head Strike; Reason: Trauma; with Pain; Clinical Question(s): Fracture; Special Instructions: Patella ([place]) COMPARISON: None. FINDINGS: No bone lesions or fractures. There is mild cartilage thinning of the medial knee compartment with moderate spurring. Mild tibialspine spurring. There is moderate patellofemoral degenerative spurring. No evidence of joint effusion. There is soft tissue thickening anterior to the patella and patellarligament. Moderate arterial calcification. IMPRESSION: No evidence of fracture or malalignment. Anterior soft tissue swelling. WSN: [id number] Ordering Physician: Yamilka Garcia MD Dictated By: Michael Thompson MD Dictated Date/Time: 07/25/23 3:37 pm Reviewed By: Michael Thompson MD Signed By: Michael Thompson MD Signed Date/Time: 07/25/23 3:37 pm Transcribed By: MIRNA Transcribed Date/Time: 07/25/23 3:36 pm * Exam Date Time Procedure Performing Provider Status 07/25/23 1:[address] Maxilloface W/O Contrast Michael Baker; Auth (Verified) Notes: (CT Maxilloface W/O Contrast) Reason For Exam: Trauma RESULT: CT Maxilloface W/O Contrast CT Head/Brain W/O Contrast, CT Cervical Spine W/O Contrast, CT Maxilloface W/O Contrast INDICATION: Hx of Present Illness: Fall with Head Strike; Reason: Trauma; Clinical Question(s): Hematoma TECHNIQUE: Noncontrast head CT using axial technique was reconstructed in axial and coronal planes.Noncontrast spiral CT through the facial bones and cervical spine was formatted in 3 planes. Automatic tube modulation was used for the cervical spine and iterative dose reconstruction was used for both the head and cervical spine to optimize scan parameters and image quality. COMPARISON: 02/09/2020 CT of the head and maxillofacial region. 03/15/2019 CT of the neck. FINDINGS: Specimen Technician View Findings, Lines and Tubes: None. BRAIN AND EXTRA-AXIAL SPACES: No parenchymal hemorrhage, midline shift, or mass effect. Dixon-white matter differentiation is wellpreserved. No acute infarct. Moderate prominence of the ventricles and sulci consistent with parenchymal volume loss. Moderate low-density white matter changes.1 No subarachnoid hemorrhage. No subdural or epidural collection. 2.7 cm calcified extra-axial mass along the right temporal occipital region, most likely a benign meningioma, mildly increased from 2020. No associated mass effect or vasogenic edema. CALVARIUM, SKULL BASE, AND SOFT TISSUES: No fractures or suspicious bony lesions. The paranasal sinuses and mastoid air cells are clear. Visualized orbits and globes are intact. Small hematoma along the right frontal scalp (image 72 series 202). MAXILLOFACIAL: Facial soft tissues: No hematoma or swelling. Likely sebaceous cyst in the left preauricular region, similar to prior study 2020. Nasal bones: No fracture. Orbits and orbital klein: No fracture of the orbital klein. No intraorbital hematoma. Bilateral lens replacement. Maxilla and alveolus: No fracture. Pterygoid plates: No fracture. Visualized parapharyngeal spaces: Symmetric without suspicious or acute abnormality. Zygomatic arches: No fracture. Mandible: The portions included on the exam are normal. No fracture or dislocation. Moderate degenerative changes of the right TMJ. CERVICAL SPINE: No fracture. No acute osseous abnormalities. Normal alignment. No locked or perched facet. Moderate multilevel degenerative disc space narrowingand end plate irregularity. OTHER BONES: No acute abnormality. CERVICAL SOFT TISSUES AND LUNG APICES: Normal soft tissues. Visualized lung apices are clear. IMPRESSION: 1. No acute intracranial or maxillofacial injury. No acute cervical spine injury. 2. Small right frontal scalp hematoma. 3. 2.7 cm calcified extra-axial mass along the right temporal occipital region has mildly increasedfrom 2019. No associated mass effect or vasogenic edema. WSN: [id number] Ordering Physician: Yamilka Garcia MD Dictated By: José Miguel Minor MD Dictated Date/Time: 07/25/23 1:53 pm Reviewed By: José Miguel Minor MD Signed By: José Miguel Minor MD Signed Date/Time: 07/25/23 1:53 pm Transcribed By: MIRNA Transcribed Date/Time: 07/25/23 1:43 pm * Exam Date Time Procedure Performing Provider Status 07/25/23 1:[address] Cervical Spine W/O Contrast Ama Baker; Auth (Verified) Notes: (CT Cervical Spine W/O Contrast) Reason For Exam: Neck trauma, dangerous injury mechanism;Other: RESULT: CT Cervical Spine W/O Contrast CT Head/Brain W/O Contrast, CT Cervical Spine W/O Contrast, CT Maxilloface W/O Contrast INDICATION: Hx of Present Illness: Fall with Head Strike; Reason: Trauma; Clinical Question(s): Hematoma TECHNIQUE: Noncontrast head CT using axial technique was reconstructed in axial and coronal planes.Noncontrast spiral CT through the facial bones and cervical spine was formatted in 3 planes. Automatic tube modulation was used for the cervical spine and iterative dose reconstruction was used for both the head and cervical spine to optimize scan parameters and image quality. COMPARISON: 02/09/2020 CT of the head and maxillofacial region. 03/15/2019 CT of the neck. FINDINGS: Specimen Technician View Findings, Lines and Tubes: None. BRAIN AND EXTRA-AXIAL SPACES: No parenchymal hemorrhage, midline shift, or mass effect. Dixon-white matter differentiation is wellpreserved. No acute infarct. Moderate prominence of the ventricles and sulci consistent with parenchymal volume loss. Moderate low-density white matter changes.1 No subarachnoid hemorrhage. No subdural or epidural collection. 2.7 cm calcified extra-axial mass along the right temporal occipital region, most likely a benign meningioma, mildly increased from 2020. No associated mass effect or vasogenic edema. CALVARIUM, SKULL BASE, AND SOFT TISSUES: No fractures or suspicious bony lesions. The paranasal sinuses and mastoid air cells are clear. Visualized orbits and globes are intact. Small hematoma along the right frontal scalp (image 72 series 202). MAXILLOFACIAL: Facial soft tissues: No hematoma or swelling. Likely sebaceous cyst in the left preauricular region, similar to prior study 2020. Nasal bones: No fracture. Orbits and orbital klein: No fracture of the orbital klein. No intraorbital hematoma. Bilateral lens replacement. Maxilla and alveolus: No fracture. Pterygoid plates: No fracture. Visualized parapharyngeal spaces: Symmetric without suspicious or acute abnormality. Zygomatic arches: No fracture. Mandible: The portions included on the exam are normal. No fracture or dislocation. Moderate degenerative changes of the right TMJ. CERVICAL SPINE: No fracture. No acute osseous abnormalities. Normal alignment. No locked or perched facet. Moderate multilevel degenerative disc space narrowingand end plate irregularity. OTHER BONES: No acute abnormality. CERVICAL SOFT TISSUES AND LUNG APICES: Normal soft tissues. Visualized lung apices are clear. IMPRESSION: 1. No acute intracranial or maxillofacial injury. No acute cervical spine injury. 2. Small right frontal scalp hematoma. 3. 2.7 cm calcified extra-axial mass along the right temporal occipital region has mildly increasedfrom 2020. No associated mass effect or vasogenic edema. WSN: [id number] Ordering Physician: Yamilka Garcia MD Dictated By: José Miguel Minor MD Dictated Date/Time: 07/25/23 1:53 pm Reviewed By: José Miguel Minor MD Signed By: José Miguel Minor MD Signed Date/Time: 07/25/23 1:53 pm Transcribed By: MIRNA Transcribed Date/Time: 07/25/23 1:43 pm * Exam Date Time Procedure Performing Provider Status 07/25/23 1:[address] Head/Brain W/O Contrast Baker Yanetsa; Auth (Verified) Notes: (CT Head/Brain W/O Contrast) Reason For Exam: Trauma RESULT: CT Head/Brain W/O Contrast CT Head/Brain W/O Contrast, CT Cervical Spine W/O Contrast, CT Maxilloface W/O Contrast INDICATION: Hx of Present Illness: Fall with Head Strike; Reason: Trauma; Clinical Question(s): Hematoma TECHNIQUE: Noncontrast head CT using axial technique was reconstructed in axial and coronal planes.Noncontrast spiral CT through the facial bones and cervical spine was formatted in 3 planes. Automatic tube modulation was used for the cervical spine and iterative dose reconstruction was used for both the head and cervical spine to optimize scan parameters and image quality. COMPARISON: 02/09/2020 CT of the head and maxillofacial region. 03/15/2019 CT of the neck. FINDINGS: Specimen Technician View Findings, Lines and Tubes: None. BRAIN AND EXTRA-AXIAL SPACES: No parenchymal hemorrhage, midline shift, or mass effect. Dixon-white matter differentiation is wellpreserved. No acute infarct. Moderate prominence of the ventricles and sulci consistent with parenchymal volume loss. Moderate low-density white matter changes.1 No subarachnoid hemorrhage. No subdural or epidural collection. 2.7 cm calcified extra-axial mass along the right temporal occipital region, most likely a benign meningioma, mildly increased from 2020. No associated mass effect or vasogenic edema. CALVARIUM, SKULL BASE, AND SOFT TISSUES: No fractures or suspicious bony lesions. The paranasal sinuses and mastoid air cells are clear. Visualized orbits and globes are intact. Small hematoma along the right frontal scalp (image 72 series 202). MAXILLOFACIAL: Facial soft tissues: No hematoma or swelling. Likely sebaceous cyst in the left preauricular region, similar to prior study 2020. Nasal bones: No fracture. Orbits and orbital klein: No fracture of the orbital klein. No intraorbital hematoma. Bilateral lens replacement. Maxilla and alveolus: No fracture. Pterygoid plates: No fracture. Visualized parapharyngeal spaces: Symmetric without suspicious or acute abnormality. Zygomatic arches: No fracture. Mandible: The portions included on the exam are normal. No fracture or dislocation. Moderate degenerative changes of the right TMJ. CERVICAL SPINE: No fracture. No acute osseous abnormalities. Normal alignment. No locked or perched facet. Moderate multilevel degenerative disc space narrowingand end plate irregularity. OTHER BONES: No acute abnormality. CERVICAL SOFT TISSUES AND LUNG APICES: Normal soft tissues. Visualized lung apices are clear. IMPRESSION: 1. No acute intracranial or maxillofacial injury. No acute cervical spine injury. 2. Small right frontal scalp hematoma. 3. 2.7 cm calcified extra-axial mass along the right temporal occipital region has mildly increasedfrom 2020. No associated mass effect or vasogenic edema. WSN: [id number] Ordering Physician: Yamilka Garcia MD Dictated By: José Miguel Minor MD Dictated Date/Time: 07/25/23 1:53 pm Reviewed By: José Miguel Minor MD Signed By: José Miguel Minor MD Signed Date/Time: 07/25/23 1:53 pm Transcribed By: MIRNA Transcribed Date/Time: 07/25/23 1:43 pm Vital Signs Most recent to oldest [Reference Range]: 1 2 3 Height 150 cm (07/29/23 4:29 AM) 150 cm (07/28/23 8:08 PM) 150 cm (07/28/23 4:00 PM) Weight 72 kg (07/26/23 12:10 AM) Oxygen Saturation [94-100 %] 95 % (07/29/23 3:00 PM) 93 % *L* (07/29/23 11:00 AM) 94 % (07/29/23 7:00 AM) Pulse Rate [55-90 bpm] 105 bpm *H* (07/29/23 3:00 PM) 107 bpm *H* (07/29/23 11:00 AM) 94 bpm *H* (07/29/23 7:00 AM) Body Mass Index [18.5-24.99 kg/m2] 32 kg/m2 *>HHI* (07/26/23 12:10 AM) Blood Pressure [90-138/55-84 mm Hg] 151/83mm Hg *H* (07/29/23 3:00 PM) 143/79mm Hg *H* (07/29/23 11:00 AM) 144/88mm Hg *H* (07/29/23 8:13 AM) Respiratory Rate [16-30 br/min] 20 br/min (07/29/23 3:00 PM) 20 br/min (07/29/23 11:00 AM) 18 br/min (07/29/23 7:30 AM) Temperature [96.8-100.4 DegF] 98.9 DegF (07/29/23 3:00 PM) 98.1 DegF (07/29/23 11:00 AM) 98.2 DegF (07/29/23 7:00 AM) Mode of Delivery (Oxygen) Room air (07/29/23 3:00 PM) Room air (07/29/23 11:00 AM) Room air (07/29/23 7:00 AM) Blood pressure sites Arm, left (07/29/23 3:00 PM) Arm, right (07/29/23 11:00 AM) Arm, left (07/29/23 7:00 AM) Temperature Route Oral (07/29/23 3:00 PM) Oral (07/29/23 11:00 AM) Oral (07/29/23 7:00 AM) Dry Weight 72 kg (07/26/23 12:10 AM) Social History Social History Type Response Smoking Status Former smoker entered on: 09/14/17 Sex Admission evaluation note * Deion Up MD: PERFORM Event Display: Admission Note Authored Date: [id number] Patient: ??STAS VILLANUEVA ? Age:??83 Years?Sex:??Female?:??1940?? Chief Complaint/Reason for Consultation Ground-level fall History of Present Illness The patient is a 83 years old female with past medical history of diabetes mellitus type 2, hypertension, hyperlipidemia, GERD??presented to ER with a chief complaint of fall at home. ? The patient reported that??she walks barefoot in her house and today she was walking with??a slipper. ??The patient reported that she was putting large lobster in the fridge and when she turned around she fell on the ground. ??The patient reported that she did not lose consciousness??as she knew exactly what happened??and she was aware of the whole event. ??The patient reported that she stayed onthe ground for 5 minutes because she was angry with herself??and after that she was able to get up.?? The patient reported that she was talking to her neighbor who called 911??and therefore she was brought to the ER. ? The patient also stated that??she checked her glucose today and it was 132??and she received her regular dose of Levemir 60 units??in the morning.?? The patient also reports that she does have episodes of hypoglycemia??after which she drinks orange juice.?? The patient also reports that she??does not eat and drink much at home. ? The patient denied any chest pain, palpitation, dizziness, abdominal pain, fever, chills Review of Systems All pertinent negative and positives are noted in HPI. ??All other systems were reviewed and are negative Objective Measurements?? Height: 150 cm (07/26/23) Weight: 72 kg (07/26/23) Dry Weight: 72 kg (07/26/23) Body Mass Index:??32 kg/m2??Critical (07/26/23) ? Vital Signs?? Temperature: 98.1 DegF (07/26/23 00:00:00) Temperature Route: Oral (07/26/23 00:00:00) Pulse Rate: 90 bpm (07/26/23 00:00:00) Respiratory Rate: 20 br/min (07/26/23 00:00:00) Vented: No (07/25/23 22:46:00) Systolic Blood Pressure:??160 mm Hg??High (07/26/23 00:00:00) Diastolic Blood Pressure: 77 mm Hg (07/26/23 00:00:00) Blood pressure sites: Arm, right (07/26/23 00:00:00) Mean Arterial Pressure: 105 mm Hg (07/26/23 00:00:00) Pulse Pressure: 83 mm Hg (07/26/23 00:00:00) Oxygen Saturation: 99 % (07/26/23 00:00:00) Mode of Delivery (Oxygen): Room air (07/26/23 00:00:00) Early Warning Score: 0 (07/26/23 03:14:06) ? Physical Exam Constitutional: Alert, in no acute distress. Head: Normocephalic. Hematoma and??ecchymosis around??right supraorbital area Eyes: Pupils are equal, round and reactive to light. Extraocular muscles intact. No pallor or scleral icterus Right eye:??Ecchymosis??around right eye Ear, Nose and Throat: mucous membranes dry. Ears and nose - no obvious deformities. Trachea midline. ?? Neck: Supple, Full range of motion.No JVD or bruits. Respiratory:??Clear to auscultation. No wheezing or rhonchi.??No use of accessory muscles. No tactile fremitus.?? Cardiovascular:??PMI not visible. S1 S2 regular. No murmurs, rubs or gallops. Gastrointestinal:??Abdomen soft, non-tender, non-distended. Normal bowel sounds. No pulsatile mass.No hepatosplenomegaly. Genitourinary:??No costovertebral angle tenderness. Extremities: No lower extremity pitting edema. No cyanosis or clubbing. Neurologic:??AAOx3, Cranial nerves II-XII grossly intact. Speech normal, no facial droop. No focal neurological deficits. Moves all extremities spontaneously. Sensation intact bilaterally.??Flexor plantar response Skin:??No rash.?? Musculoskeletal:??No gross deformities on inspection. Normal range of motion in hips, knees, ankles. ??.??Muscle strength within normal limits Heme/Lymphatics:??Palpation of neck reveals no swelling or tenderness of neck nodes.?? Psychiatric: Normal mood and affect. Assessment/Plan Diagnoses 1. ??Hypoglycemia ??(E16.2) 2. ??Ground-level fall ??(W18.30XA) 3. ??Facial bruising ??(S00.83XA) 4. ??Scalp hematoma ??(S00.03XA) 5. ??Acute kidney failure ??(N17.9) 6. ??Insulin dependent type 2 diabetes mellitus ??(E11.9) 7. ??Anxiety with depression ??(F41.8) ?? Assessment:??The patient is a 83 years old female who presented with??coronal fall and found to have hypoglycemia ?? Hypoglycemia (E16.2):??Etiology: Likely secondary to insulin use and??decreased p.o. intake The patient reported that her morning sugar was 132??and she also received a scheduled dose of insulin The patient reports??frequent episodes hypoglycemia??for which she takes orange juice Today, patient fell while she was putting food in the fridge but denied any loss of consciousness In ER, patient glucose level was 26 and she was given D50 dextrose and glucose improved to 276 Despite??eating dinner??and??2??drinks of juice, patient glucose gradually decreased to 59 again??but patient is asymptomatic Therefore, started patient on D5 fluids at 100 ml/hr Will check glucose every 4 hours Will hold home??dose of Lantus and Insulin unclear patient blood sugar is stabilized and remains above 180??persistently ?? Ground-level fall (W18.30XA):??Etiology: Likely due to??hypoglycemia Patient reported that she was putting lobster in the fridge when she turned around and fell on the ground,??patient reported that she did not lose??consciousness as she is fully aware of what happened??and was able to get??off the floor on her own Blood glucose upon arrival in ER was 57 Currently, patient denying any acute complaints and she also denied any chest pain or palpitations before falling Troponin levels flat at 15 EKG did not show any evidence of ischemic injuries or arrhythmia Extensive imaging was done that only showed??small right scalp hematoma On physical exam, patient does have bruising??and hematoma in the right frontal scalp. Physical therapy consulted Will monitor telemetry ? Facial bruising (S00.83XA):??Management as above ?? Scalp hematoma (S00.03XA):??Management as above ?? Acute kidney failure (N17.9):??Etiology: Likely prerenal Creatinine upon admission 1.2, baseline creatinine is 1.0 Started patient on IV fluids Will trend creatinine with labs ?? Insulin dependent type 2 diabetes mellitus (E11.9):??Currently holding home Levemir and sliding insulin as patient is hyperglycemic Once patient glucose is stabilized and remains above 180 persistently, will start the patient back on sliding scale insulin HbA1c 6.9 Patient reported that she frequently has episodes hypoglycemia at home Patient insulin regimen needs to be adjusted??upon discharge ?? Anxiety with depression (F41.8):??Resume home medication??fluoxetine and bupropion ? Meningioma CT head was done that showed 2.7??cm??meningioma right temporal lobe??that is slightly increased insize since 2019,??in 2020, it was 2.5 cm in size However, patient is totally asymptomatic and denying any headaches, nausea, vomiting or frequent episodes of fall or syncope at home Recommend outpatient follow-up ?? VTE Prophylaxis:??Sub Q Heparin ?VTE Prophylaxis Assessment:??VTE Prophylaxis Ordered ?? Code Status:??Full Code ?Order Code Status:??Code Status Ordered ?? Ongoing Medical Necessity:??Hypoglycemia, Fall ?? Discharge Planning:??Pending clinical course ? Date of service: July 25, 2023 Histories Allergies Allergies ?(Active and Proposed Allergies Only) penicillins? (Severity: Unknown severity, Onset: Unknown) ?Reactions: anaflactic shock morphine? (Severity: Unknown severity, Onset: Unknown) ?Reactions: anaflactic shock ? 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 Past Surgical History Polysomnogram: 07/07/15 Upper Endoscopy: 10/18/13 Hernia repair 1976 EWELINA - Total abdominal hysterectomy, 1975 Thyroidectomy, total or complete 2009 Axillary lymph node dissection , ??left , 2009 Cholecystectomy ??, open, 1974 Lumpectomy, left 2009 ? Social History Alcohol Details:??Use: Never. Employment/School Details:??Status: Retired. Exercise Details:??Self assessment: Poor condition. ??Regular exercise: No. Home/Environment Details:??Living situation: Home/Independent. ??Lives with: Alone. Nutrition/Health Details:??Diet: Regular, Diabetic. ??Caffeine intake amount: Tea 1-2 cups a day. ??Feels highly stressed: No. Substance Abuse Details:??Use: Never. Tobacco Details:??Former smoker ? Family History Mother: Alcoholism Father: Alcoholism; Cancer of prostate; Diabetes mellitus type II Brother: Diabetes mellitus type II Mat. Grandmother: Skin cancer Sister: Alcoholism Daughter (): Cancer; Mental illness ? Medications Home Medications Aspirin (Aspirin Low Dose 81 mg oral delayed release tablet)?1?tab(s)?By Mouth?Daily?R1. Atorvastatin (atorvastatin 10 mg oral tablet)?1?tab(s)?By Mouth?Daily?R4. BuPROpion (buPROPion 200 mg/12 hours (SR) oral tablet, extended release)?1?tab(s)?By Mouth?2 times a day Cholecalciferol (Vitamin D3 2000 intl units oral capsule)?1?capsule?By Mouth?Daily?R1. Fluoxetine (FLUoxetine 40 mg oral capsule)?1?capsule?By Mouth?Daily?R1. Furosemide (furosemide 40 mg oral tablet)?1?tablet?By Mouth?Daily?^1R1. Insulin Detemir (Levemir FlexPen 100 units/mL subcutaneous solution)?See Instructions?INJECT 66 UNITS SUBCUTANEOUSLY (UNDER THE SKIN) EVERY EVENING ^BULK Insulin Lispro (Humalog Kwik Pen 100 units/mL subcutaneous injection)?See Instructions?INJECTSUBCUTANEOUSLY (UNDER THE SKIN) THREE TIMES DAILY WITH MEALS IF BLOOD SUGAR 120-150 17 UNITS 151-200 19 UNITS 201-250 21 UNITS 251-300 23 UNITS 301-350 25 UNITS 351-400 27 UNITS OVER 400 29 UNITS ANDCALL PCP (MAX 87 UNITS PER DAY) Lisinopril (lisinopril 40 mg oral tablet)?1?tab(s)?By Mouth?Daily?^1R1. Metformin (MetFORMIN (Eqv-Glucophage XR) 500 mg oral tablet, extended release)?See Instructions?TAKE 2 TABLETS BY MOUTH DAILY ^2R1 Omeprazole (omeprazole 20 mg oral enteric coated capsule)?1?capsule?By Mouth?Daily?R1. ? Results Recent Labs BLOOD COUNT & DIFF WBC 11.3 k/mm3 (High)?? 07/25/2023 12:48 RBC 4.76 m/mm3 ()?? 07/25/2023 12:48 Hgb 12.2 Gm/dL ()?? 07/25/2023 12:48 Hct 39.5 % ()?? 07/25/2023 12:48 MCV 83.0 femtoliters ()?? 07/25/2023 12:48 MCH 25.6 pg (Low)?? 07/25/2023 12:48 MCHC 30.9 g/dL (Low)?? 07/25/2023 12:48 Platelet Count 577 k/mm3 (High)?? 07/25/2023 12:48 RDW-SD 45.8 femtoliters ()?? 07/25/2023 12:48 MPV 9.3 femtoliters (Low)?? 07/25/2023 12:48 Nucleated RBC (Automated) 0.0 #/100 WBC'S ()?? 07/25/2023 12:48 Abs. NRBC 0.0 k/mm3 ()?? 07/25/2023 12:48 Abs. Neut 7.7 k/mm3 (High)?? 07/25/2023 12:48 Abs. Lymph 2.5 k/mm3 ()?? 07/25/2023 12:48 Abs. Potter 0.7 k/mm3 ()?? 07/25/2023 12:48 Abs. Eo 0.3 k/mm3 ()?? 07/25/2023 12:48 Abs. Baso 0.0 k/mm3 ()?? 07/25/2023 12:48 Neut % 68.3 % ()?? 07/25/2023 12:48 Lymph % 22.1 % ()?? 07/25/2023 12:48 Potter % 6.4 % ()?? 07/25/2023 12:48 Eos % 2.4 % ()?? 07/25/2023 12:48 Baso % 0.4 % ()?? 07/25/2023 12:48 Imm Gran 0.4 % ()?? 07/25/2023 12:48 Abs. Imm Gran 0.1 k/mm3 ()?? 07/25/2023 12:48 ?? CARDIAC High Sensitivity Troponin (HSTnT) 15 ng/L (High)?? 07/25/2023 16:41 ?? CHEM GENERAL Sodium 139 mmol/L ()?? 07/25/2023 12:48 Potassium 4.4 mmol/L ()?? 07/25/2023 12:48 Chloride 98 mmol/L ()?? 07/25/2023 12:48 Bicarbonate Level 28 mmol/L ()?? 07/25/2023 12:48 Anion Gap 13 ()?? 07/25/2023 12:48 Glucose Level 57 mg/dL (Low)?? 07/25/2023 12:48 Glucose, POC 134 mg/dL (High)?? 07/26/2023 03:12 BUN 23 mg/dL ()?? 07/25/2023 12:48 Creatinine-Blood 1.2 mg/dL (High)?? 07/25/2023 12:48 Estimated GFR Creatinine 47 ML/MIN/1.73 M2 ()?? 07/25/2023 12:48 Calcium 9.5 mg/dL ()?? 07/25/2023 12:48 Protein, Total 7.2 Gm/dL ()?? 07/25/2023 12:48 Albumin 3.9 Gm/dL ()?? 07/25/2023 12:48 AG Ratio 1.2 ()?? 07/25/2023 12:48 Alkaline Phosphatase 67 units/L ()?? 07/25/2023 12:48 AST (SGOT) 15 units/L ()?? 07/25/2023 12:48 ALT (SGPT) 13 units/L ()?? 07/25/2023 12:48 Bilirubin, Total 0.2 mg/dL ()?? 07/25/2023 12:48 ?? URINE OTHER Est Creatinine Clearance 25.15 mL/min ()?? 07/26/2023 00:20 ?? VIROLOGY Influenza A PCR NEGATIVE ()?? 07/25/2023 15:50 Influenza B PCR NEGATIVE ()?? 07/25/2023 15:50 RSV PCR NEGATIVE ()?? 07/25/2023 15:50 COVID-19 PCR Specimen Source NASAL ()?? 07/25/2023 15:50 COVID-19 PCR Result NEGATIVE ()?? 07/25/2023 15:50 ? Coagulation Profile?? No qualifying data available. ?? EKG study * Event Display: EKG Authored Date: Cardiology * Event Display: Cardiac Rhythm Strips Authored Date: Hospital Progress note * Carmella Rosales LPN: PERFORM, SIGN, VERIFY Event Display: Progress Note Hospital Authored Date: Patient: STAS VILLANUEVA Age: 83 years Sex: Female : 1940 Associated Diagnoses: None Author: Carmella Rosales LPN Findings Problem Related to Alteration in Cardiac Function (new) : Alteration in Cardiac Function/new 07/29/2023 11:00 EST Alteration in Cardiac Status Related to Syncope Goals & Outcomes, Cardiac Status Pt will resume/maintain adequate cardiac output, Pt will resume/maintain adequate hemodynamic status, Pt will resume/maintain adequate respiratory function, Pt will resume/maintain intact neuro function, Pt will maintain adequate GI/ function appropriate for pt, Pt will maintain adequate nutrition status Cardiac Interventions Implemented Assess/monitor cardiac status, Assess/monitor neuro status, Assess/monitor respiratory status, Ensure adequate caloric intake, If no bowel movement in 3 days activate bowel regime BH Goals/Interventions, Cardiac Yes Cardiac, Problem Start 07/25/2023 12:00 Reviewed Plan with, Cardiac Status Patient Patient Progression, Cardiac Status Patient progressing according to plan . Alteration in Comfort : Alteration in Comfort/new 07/29/2023 11:00 EST Alteration in Comfort Related to Injury Goals & Outcomes: Comfort Pt will report acceptable level of comfort & pain control, Pt will state importance of adhering to pain strategy regime, Pt will demonstrate necessary skills to manage pain, Non-verbal indicators will indicate comfort/pain control Interventions Implemented: Comfort Assess pain using appropriate pain scale/tools, Assess aggravating factors & prevent them accordingly, Assess alleviating factors & promote them accordingly Goals/Interventions, Comfort Yes Comfort, Problem Start 07/25/2023 12:00 Reviewed plan with, Comfort Patient Patient Progression, Comfort Pt progressing according to plan Comfort, Problem Ongoing Yes . Alteration in Endocrine : Alteration in Endocrine Function/new 07/29/2023 11:00 EST Alteration in Endocrine Related to Hypoglycemia Goals & Outcomes, Endocrine Blood glucose levels will stabilize during hospitalization, Intake & Output will improve & return to baseline, Pt will receive/maintain adequate nutrition status, Pt will resume/maintain adequate cardiac output, Pt will maintain adequate GI/ function appropriate for pt, Pt will resume/maintain adequate hemodynamic status, Pt will tolerate age appropriate diet prior to discharge, Pt will be maintained on sc insulin & appropriate diet, Pt will be rehydrated, Pt will resume regular activities Interventions, Endocrine Teach Pt/caregiver pain management strategies, Teach Pt/caregiver signs & symptoms of hypoglycemia, Teach Pt/caregiver signs & symptoms of hyperglycemia, Teach Pt/caregiver use of home glucose monitoring Goals/Interventions, Endocrine Yes Endocrine, Problem Start 07/25/2023 12:00 Reviewed Plan with, Endocrine Patient Patient Progression, Endocrine Pt progressing according to plan . Pt is A&Ox4, bedfast, VSS. pt complains of weakness, dizziness, and SOB with exertion. pt denied CP, nausea, HERNANDES, chills, numbness or tingling of extremities. call rueda within reach. bed alarm is on. will continue monitoring, maintaining comfort and safety. Nursing Data Vital Signs : VITAL SIGNS SECTION 07/29/2023 11:00 EST Temperature 98.1 DegF Temperature Route Oral Pulse Rate 107 bpm H Respiratory Rate 20 br/min Systolic Blood Pressure 143 mm Hg H Diastolic Blood Pressure 79 mm Hg Blood pressure sites Arm, right Pulse Pressure 64 mm Hg Oxygen Saturation 93 % L Mode of Delivery (Oxygen) Room air . Discharge Information Case Management Discharge Plan : Case Management Discharge Plan Data 07/27/2023 13:09 EST Discharge Level of Care at Discharge Homehealth/VNA Discharge VNA/Hospice/Home Care [facility] [phone] 07/27/2023 11:26 EST Discharge Level of Care at Discharge Homehealth/VNA Discharge VNA/Hospice/Home Care [facility] [phone] Discharge Transportation Arranged [facility] [phone] Discharge Arranged Transport Date/Time 07/27/2023 12:30 Mode of Transportation Arranged Chair Van Name of Agency #1 [facility] Service Categories #1 Half-Way Service Comments #1 [facility] will call you to coordinate homecare visits Rehabilitation Discharge : Rehab Discharge Index 07/29/2023 10:10 EST Comments on treatment indicated Pt is not at functional baseline, presenting with (L) isolated left greater trochanteric fracture s/p fall. Pt is WBAT. Rec rehab Walker: distance < 10 Distance pt will ambulate 30' Plan of care PT Gait training, Transfer training, Therapeutic exercise, Functional Activities, Balance training 07/28/2023 12:44 EST Full chart review completed Yes Hospital course Hospital course 07/26/2023 7:34 EST Comments on treatment indicated 83 y/o F adm s/p fall. Pt appears to be at baseline functional mobility. No acute PT indicated. Rec home c services. Walker: distance 20-50 Full chart review completed Yes * Dunia FREEMAN, [facility] access hospitalruddy: PERFORM Event Display: Progress Note Hospital Authored Date: Patient: ??STAS VILLANUEVA ? Age:??83 Years?Sex:??Female?:??1940?? Subjective Patient was seen and examined at bedside this morning Overnight patient did underwent??undergo CT of the pelvis which showed comminuted fracture??in the left hip My colleague requested orthopedics consult who saw the patient overnight and recommended no surgical interventions but with weightbearing status Patient also became??delirious overnight please see below Review of Systems All the other systems including General, HEENT, Cardiac, Respiratory, Gastrointestinal, Genito urinary, Neurological, Musculoskeletal, cutaneous systems are negative except as mentioned above Objective Vital Signs?? Temperature: 98.1 DegF (07/29/23 11:00:00) Temperature Route: Oral (07/29/23 11:00:00) Pulse Rate:??107 bpm??High (07/29/23 11:00:00) Respiratory Rate: 20 br/min (07/29/23 11:00:00) Systolic Blood Pressure:??143 mm Hg??High (07/29/23 11:00:00) Diastolic Blood Pressure: 79 mm Hg (07/29/23 11:00:00) Blood pressure sites: Arm, right (07/29/23 11:00:00) Mean Arterial Pressure: 112 mm Hg (07/29/23 04:29:00) Pulse Pressure: 64 mm Hg (07/29/23 11:00:00) Oxygen Saturation:??93 %??Low (07/29/23 11:00:00) Mode of Delivery (Oxygen): Room air (07/29/23 11:00:00) Early Warning Score: 3 (07/29/23 13:07:02) ? Physical Exam General: AAO X 3, oriented this AM HEENT: Normocephalic, Atraumatic?? Neck: soft, supple?? 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 No cranial nerve deficits appreciated Musculoskeletal: No joint swellings or effusions noted Extremities: Pulse 2+, No edema noted. Skin: no new rash or skin breakdown noted Results Recent Labs BLOOD COUNT & DIFF WBC 12.6 k/mm3 (High)?? 07/28/2023 06:13 RBC 4.25 m/mm3 ()?? 07/28/2023 06:13 Hgb 10.9 Gm/dL (Low)?? 07/28/2023 06:13 Hct 35.2 % (Low)?? 07/28/2023 06:13 MCV 82.8 femtoliters ()?? 07/28/2023 06:13 MCH 25.6 pg (Low)?? 07/28/2023 06:13 MCHC 31.0 g/dL (Low)?? 07/28/2023 06:13 Platelet Count 536 k/mm3 (High)?? 07/28/2023 06:13 RDW-SD 44.9 femtoliters ()?? 07/28/2023 06:13 MPV 9.3 femtoliters (Low)?? 07/28/2023 06:13 Nucleated RBC (Automated) 0.0 #/100 WBC'S ()?? 07/28/2023 06:13 Abs. NRBC 0.0 k/mm3 ()?? 07/28/2023 06:13 ?? CHEM GENERAL Sodium 138 mmol/L ()?? 07/28/2023 06:13 Potassium 4.2 mmol/L ()?? 07/28/2023 06:13 Chloride 103 mmol/L ()?? 07/28/2023 06:13 Bicarbonate Level 24 mmol/L ()?? 07/28/2023 06:13 Anion Gap 11 ()?? 07/28/2023 06:13 Glucose Level 140 mg/dL (High)?? 07/28/2023 06:13 Glucose, POC 177 mg/dL (High)?? 07/29/2023 10:56 BUN 13 mg/dL ()?? 07/28/2023 06:13 Creatinine-Blood 1.1 mg/dL (High)?? 07/28/2023 06:13 Estimated GFR Creatinine 50 ML/MIN/1.73 M2 ()?? 07/28/2023 06:13 Calcium 9.4 mg/dL ()?? 07/28/2023 06:13 ? Assessment/Plan 83 years old female with past medical history of diabetes mellitus type 2, hypertension, hyperlipidemia, GERD presented to ER with a chief complaint of fall at home.so patient was hospitalized for further evaluation and management ?? Ground-level fall (W18.30XA): --??Patient was hospitalized??and underwent further imaging --??As all the workup was negative patient was seen by physical therapy who recommended home with services --??Patient was supposed to be discharged yesterday however patient had an unwitnessed fall??as patient tried??to walk unassisted??without wheelchair -- Ct showed Comminuted mildly displaced fracture of the left. Trochanter. ?? Hip fracture, left (S72.002A):?? -- Ct showed Comminuted mildly displaced fracture of the left. Trochanter. -- Ortho was consulted who recommended no surgical intervention -- May weight bear as she is able to tolerate, should avoid any abduction maneuvers -- Should use a walker for ambulatory support. -- The patient should follow up with Dr. Rober Gilliland, who can be reached at [phone]. --??Pain management and VTE prophylaxis ?? Delirium (R41.0):?? --??Patient had altered mental status??yesterday and slightly agitated --??Suspected to be secondary to??hyperactive delirium --??This morning patient is back to her baseline and calm and cooperative??to the care --??Will continue to implement delirium precautions ?? Hypoglycemia (E16.2):?? --??Patient has history of type 2 diabetes and usually take insulin?? --??Hypoglycemia??secondary to insulin use and decreased p.o. intake --??Resolved currently ?? Hypertension (I10):??--??Continue home dose of lisinopril ?? Insulin dependent type 2 diabetes mellitus (E11.9):??--??Recent HbA1c 6.9 --Continue home dose of insulin ?? VTE Prophylaxis:??Heparin ?VTE Prophylaxis Assessment:??VTE Prophylaxis Ordered ?? Code Status:??full ?Order Code Status:??Code Status Ordered ?? * Marybeth Savage RN: PERFORM, SIGN, VERIFY, MODIFY, SIGN Event Display: Progress Note Hospital Authored Date: [id number] Patient: STAS VILLANUEVA Age: 83 years Sex: Female : 1940 Associated Diagnoses: None Author: Marybeth Savage RN Findings Problem Related to Alteration in Cardiac Function (new) : Alteration in Cardiac Function/new 07/28/2023 23:00 EST Alteration in Cardiac Status Related to Syncope Goals & Outcomes, Cardiac Status Pt will resume/maintain adequate cardiac output, Pt will resume/maintain adequate hemodynamic status, Pt will resume/maintain adequate respiratory function, Pt will resume/maintain intact neuro function, Pt will maintain adequate GI/ function appropriate for pt, Pt will maintain adequate nutrition status Cardiac Interventions Implemented Assess/monitor cardiac status, Assess/monitor neuro status, Assess/monitor respiratory status, Ensure adequate caloric intake, If no bowel movement in 3 days activate bowel regime BH Goals/Interventions, Cardiac Yes Cardiac, Problem Start 07/25/2023 12:00 Reviewed Plan with, Cardiac Status Patient Patient Progression, Cardiac Status Plan Initiation . Narrative/Incidental Pt A+Ox2-3, knows her name and , the month and year, forgetful on day. Occas patient talking to ?herself or someone who isn't there, some sentences make no sence. Told this nurse she had bunch of people visited her today which isnt true. Speaking incoherently at times. Pt also knows she is at [facility] after sustained fall. Pt is very weak. Reports occas dizziness while in her bed or getting up. Pt has big bruise around her right eye and swelling, swollen bump-like area over right forehead. Left knee with closed skin tear and bruise. Fungal rash under bilat breasts and abd folds. Nystatin powder applied. Pt reported mild headache and some left hip pain. Denies nausea or vomiting. Telemetry: /ST. Peguero at bedside. Bed alarm on. Cont to monitor the pt.. Discharge Information Case Management Discharge Plan : Case Management Discharge Plan Data 07/27/2023 13:09 EST Discharge Level of Care at Discharge Homehealth/VNA Discharge VNA/Hospice/Home Care [facility] [phone] 07/27/2023 11:26 EST Discharge Level of Care at Discharge Homehealth/VNA Discharge VNA/Hospice/Home Care [facility] [phone] Discharge Transportation Arranged [facility] [phone] Discharge Arranged Transport Date/Time 07/27/2023 12:30 Mode of Transportation Arranged Chair Van Name of Agency #1 [facility] Service Categories #1 Half-Way Service Comments #1 [facility] will call you to coordinate homecare visits Rehabilitation Discharge : Rehab Discharge Index 07/26/2023 7:34 EST Comments on treatment indicated 83 y/o F adm s/p fall. Pt appears to be at baseline functional mobility. No acute PT indicated. Rec home c services. Walker: distance 20-50 Full chart review completed Yes Note * Event Display: Provider Clarification Note Please click on pdf link to open report * Event Display: Provider Clarification Note Please click on pdf link to open report * Sherry Lopez RN: PERFORM Event Display: Discharge/Transfer Note Hospital Authored Date: [id number] Nursing Discharge Note Entered On: 07/27/2023 13:11 EST Performed On: 07/29/2023 18:00 EST by Sherry Lopez RN Nursing Discharge Note 2 Discharge Time : 07/29/2023 18:00 EST Discharge Level of Care at Discharge : Inpatient Rehab Facility/Unit Carmella Rosales LPN - 07/30/2023 5:57 EST Discharge VNA/Hospice/Home Care(v001) : [facility] [phone] Patient Left Unit Via : Ambulance Patient Accompanied Off Unit with : Ambulance/Chair Van Personnel Handover Given to Transport Personnel : Yes DC Instructions Provided & Signed by Pt : No Patient Understands D/C Instructions : Yes Patient Instructions Discharge Signed : No Did Pt have Specialty Bed or Wound Vac : No Sherry Lopez RN - 07/27/2023 13:09 EST * Ad[facility] Duque [facility]: PERFORM Event Display: Discharge/Transfer Note Hospital Authored Date: [id number] Patient: ??STAS VILLANUEVA ? Age:??83 Years?Sex:??Female?:??1940?? 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 Atorvastatin (atorvastatin 10 mg oral tablet)?1?tab(s)?By Mouth?Daily?R4. BuPROpion (buPROPion 200 mg/12 hours (SR) oral tablet, extended release)?1?tab(s)?By Mouth?2 times a day Cholecalciferol (Vitamin D3 2000 intl units oral capsule)?1?capsule?By Mouth?Daily?R1. Fluoxetine (FLUoxetine 40 mg oral capsule)?1?capsule?By Mouth?Daily?R1. Furosemide (furosemide 40 mg oral tablet)?1?tablet?By Mouth?Daily?^1R1. Insulin Detemir (Levemir FlexPen 100 units/mL subcutaneous solution)?See Instructions?INJECT 8 UNITS SUBCUTANEOUSLY (UNDER THE SKIN) EVERY MORNING ONLY IF FASTING MORNING BLOOD SUGAR >150. Miscellaneous Rx (EASY TOUCH PEN NEED 31G X 5 MM MISC)?See Instructions? DIRECTED FOUR TIMES DAILY Omeprazole (omeprazole 20 mg oral enteric coated capsule)?1?capsule?By Mouth?Daily?R1.?? Medications Started None Medications Discontinued None Doses Changed None Hospital Course 83 years old female with past medical history of diabetes mellitus type 2, hypertension, hyperlipidemia, GERD presented to ER with a chief complaint of fall at home.so patient was hospitalized for further evaluation and management ?? Ground-level fall (W18.30XA):??- -??Patient was hospitalized??and underwent further imaging --??As all the workup was negative patient was seen by physical therapy who recommended home with services --??Patient was supposed to be discharged yesterday however patient had an unwitnessed fall??as patient tried??to walk unassisted??without wheelchair -- Ct showed Comminuted mildly displaced fracture of the left. Trochanter. ?? Hip fracture, left (S72.002A):?? -- CT showed Comminuted mildly displaced fracture of the left. Trochanter. -- Ortho was consulted who recommended no surgical intervention -- May weight bear as she is able to tolerate, should avoid any abduction maneuvers -- Should use a walker for ambulatory support. -- The patient should follow up with Dr. Rober Gilliland, who can be reached at [phone]. --??Pain management??with tylenol as needed ?? Delirium (R41.0):?? --??Patient had altered mental status??yesterday and slightly agitated --??Suspected to be secondary to??hyperactive delirium --??This morning patient is back to her baseline and calm and cooperative??to the care --??Will continue to implement delirium precautions ?? Hypoglycemia (E16.2):?? --??Patient has history of type 2 diabetes and usually take insulin?? --??Hypoglycemia??secondary to insulin use and decreased p.o. intake --??Resolved currently ?? Hypertension (I10):??--??Continue home dose of lisinopril ?? 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 --??Recent HbA1c 6.9 --Continue home dose of insulin ?? Exam at discharge: HEENT : Moist mucous membranes. Respiratory : Clear to auscultation bilaterally? Cardiac : no M/G/R.? Abdomen/GI : soft, non-tender.? Extremities : no clubbing, no cyanosis.? Neurologic : Alert & oriented x 3 .? Patient Education Titles Causes of Syncope?? What Is Syncope??? What Is Syncope??? Causes of Syncope?? Fall??Prevention?? Follow-Up Appointments Added Follow Up ?Time Frame ?Comments Georgie FREEMAN, Ezequiel Chino Patient Instructions DIAGNOSIS:??Syncope ?? You were?? admitted after you??syncopized at home and passed out hitting your face on the ground.??Your lab work showed??your blood sugar did dip??dangerously low and you required some juice and??sugar through your IV??and you were treated with??glucose drip thereafter.?? Blood sugars have now improved. ??However you are still not requiring insulin. ?? Levemir??is currently on hold. ??You are currently not being discharged on insulin.?Monitor blood sugars at home.?? Restart Levemir at 8 units every morning, only if fasting blood sugar??greater than 150.?? Short acting insulin has been discontinued.?? Metformin has been discontinued. ?? Blood pressure medications were also??on hold in hospital. ??Currently blood pressures ranging??in 120s to 130s systolic, and diastolic in 80s.?? Lisinopril??is??currently on hold. ??Monitor blood pressure at home. ??If blood pressure??greater than 140/90,??persistently,??take half dose lisinopril that is??20 mg, instead of the 40 mg pill.?? Discussed with your??PCP??on next visit. ?? Follow-up with your PCP??in??3 to 5 days.?? Please call for appointment. ?? Please return to the emergency department if you feel lightheaded or dizzy, if you have chest pain,if you pass out again, if you have??feel confused, if you have numbness or tingling in your arms orlegs or anything else that concerns you. Post Discharge Care Activity: ??Ambulate with assistance 3 times a day unless otherwise specified ?? Discharge ?07/29/23 16:59:00 EST Discharge Prescriptions ?None, 07/29/23 16:59:00 EST Home Health Face to Face ^HomeHealthFTF 35??minutes spent on discharge * Neeta Dominguez: VERIFY, PERFORM, SIGN Event Display: Case Management Discharge Plan Authored Date: [id number] Patient: STAS VILLANUEVA Age: 83 years Sex: Female : 1940 Associated Diagnoses: None Author: Neeta Dominguez Discharge Plan Case Management Discharge Plan : Case Management Discharge Plan Data 07/29/2023 15:42 EST Discharge Level of Care at Discharge Inpatient Rehab Facility/Unit Discharge Nursing Homes/Rehab Facilities [facility] Discharge Transportation Arranged [facility] [address] [facility] [phone] Discharge Arranged Transport Date/Time 07/29/2023 17:00 Mode of Transportation Arranged Ambulance Name of Agency #1 [facility] Service Categories #1 Occupational Therapy, Physical Therapy, Half-Way Service Comments #1 you are being discharged to [facility] for Rehab. today via Ambulance stretcher. * Macy Morales RN: PERFORM Event Display: Patient Education/Instruction Authored Date: [id number] Inpatient Adult Discharge Instructions [address] [address] Name: STAS VILLANUEVA : 1940 Visit: 07/28/2023 12:28:00 Current Date: 07/29/2023 17:00 Account: [id number] Inpatient Adult Discharge Instructions We would like to thank you for allowing us to assist you with your healthcare needs. The following includes patient education materials and information regarding your injury/illness. Our entire staffstrives to provide an excellent experience for our patients and their families. PLEASE ENSURE YOU FOLLOW-UP PER THE INSTRUCTIONS BELOW! ?? YOUR OPINION IS IMPORTANT TO US! Please complete the survey you may receive by mail or email. Your feedback will be used to make improvements to the healthcare experiences of our patients and their families. Surveys are administered by [employer] ?? If further treatment with your primary care physician or another doctor is recommended, it is important for you to keep the appointment. Call your primary care physician or return to the Emergency Department immediately if your condition worsens, fails to improve, or new symptoms develop. If you need to find a doctor, you can call [facility] [employer] Link for a referral at [phone] or toll free at [phone]) or log in to [email or web address].. ?? [facility], in keeping with [facility] guidance, no longer requires face masks for staff, patientsor visitors in most situations. Similiar to time spent indoors at other locations, there is the chance that you were exposed to repiratory viruses during your time with us (such as flu or COVID-19). If you develop symptoms concerning for a viral respiratory infection, please seek testing (and treatment if indicated) from your medical provider or home test kit. ?? You can view and manage your care through the patient portal or by using a health care sandor of your choosing. [facility] is a website that allows you to securely view your medical information including your hospital discharge summary, office visit summaries, medications and follow-up visits. You can also request appointments, renew medications, and request access to your medical information using a health care sandor of your choosing, or just ask a question. You can enroll at [email or web address] or register during your next office visit. You have been discharged from [facility], Patient Care Unit: D3B. If you have any questions regarding these instructions after you leave, please call us and we will be happy to assist you. [facility] Your Care Team Attending Physician Dunia FREEMAN, Fiordaliza Consulting Providers Rober Gilliland MD Discharging Providers Dunia FREEMAN, Fiordaliza Reason for Admission fall sometime overnight. When [facility]NA came in they found her with ecchymosis surrounding R eye. Pt thinks she may have had LOC. c/o feeling tired and nausea Your Diagnosis Hypoglycemia Ground-level fall Facial bruising Scalp hematoma Insulin dependent type 2 diabetes mellitus Anxiety with depression Acute kidney failure Hypertension Hip fracture, left Delirium Tests Performed Below is a partial list of the tests performed during your hospitalization. You may have had other tests and procedures not included in this list. Please discuss all test results with your provider. Basic Metabolic Panel CBC CBC w/ Differential Comprehensive Metabolic Panel COVID-19, RSV, and Flu A/B, Rapid PCR GLUCOSE POC High??Sensitivity??Troponin T HOLD LAVENDER TUBE Magnesium Level Phosphorus Level Urinalysis w/hold for Urine Culture CT Cervical Spine W/O Contrast CT Head/Brain W/O Contrast CT Maxilloface W/O Contrast CT Pelvis W/O Contrast XR Hip w/Pelvis 2-3 View Left XR Humerus Min 2 Views Right XR Knee 1 or 2 Views Left XR Knee 1 or 2 Views Right Primary Care Provider Ezequiel Jacques MD Advance Directive Health Care Proxy on File No Patient refuses to discuss Discharge Vitals Temperature: 98.9 DegF Height: 150 cm Pulse Rate:??105 bpm??High Weight: 72 kg Respiratory Rate: 20 br/min Body Mass Index:??32 kg/m2??Critical Systolic Blood Pressure:??151 mm Hg??High Body surface area: 1.73 Diastolic Blood Pressure: 83 mm Hg ?? Oxygen Saturation: 95 % ?? Studies Pending All tests and labs ordered during this hospital stay have been completed unless listed below. Please discuss all pending results with your provider listed above in these instructions. ?? No incomplete studies found What to do next Instructions From Your Doctor DIAGNOSIS:??Syncope ?? You were?? admitted after you??syncopized at home and passed out hitting your face on the ground.??Your lab work showed??your blood sugar did dip??dangerously low and you required some juice and??sugar through your IV??and you were treated with??glucose drip thereafter.?? Blood sugars have now improved. ??However you are still not requiring insulin. ?? Levemir??is currently on hold. ??You are currently not being discharged on insulin.?Monitor blood sugars at home.?? Restart Levemir at 8 units every morning, only if fasting blood sugar??greater than 150.?? Short acting insulin has been discontinued.?? Metformin has been discontinued. ?? Blood pressure medications were also??on hold in hospital. ??Currently blood pressures ranging??in 120s to 130s systolic, and diastolic in 80s.?? Lisinopril??is??currently on hold. ??Monitor blood pressure at home. ??If blood pressure??greater than 140/90,??persistently,??take half dose lisinopril that is??20 mg, instead of the 40 mg pill.?? Discussed with your??PCP??on next visit. ?? Follow-up with your PCP??in??3 to 5 days.?? Please call for appointment. ?? Please return to the emergency department if you feel lightheaded or dizzy, if you have chest pain,if you pass out again, if you have??feel confused, if you have numbness or tingling in your arms orlegs or anything else that concerns you. Discharge Orders Activity:??Ambulate with assistance 3 times a day unless otherwise specified You Need to Schedule the Following Appointments Follow Up with??Georgie FREEMAN, Ezequiel Chino Where: [address] [place] [address]- Discharge Medications STAS VILLANUEVA :1940 Visit Date:07/28/2023 Medications: Please continue your medications until treatment is completed or stopped by your provider. Medications not listed below should be discontinued. Discuss any questions related to medications with your provider. What How Much When Instructions Next Dose Changed Insulin Detemir (Levemir FlexPen 100 units/ mL subcutaneous solution) See instructions INJECT 8 UNITS SUBCUTANEOUSLY (UNDER THE SKIN) EVERY MORNING ONLY IF FASTING MORNING BLOOD SUGAR >150. ?? 07/30 9am Unchanged Aspirin (Aspirin Low Dose 81 mg oral delayed release tablet) 1 tab(s) Oral Daily R1. ?? 07/30 9am Unchanged Atorvastatin (atorvastatin 10 mg oral tablet) 1 tab(s) Oral Daily R4. ?? 07/30 9am Unchanged BuPROpion (buPROPion 200 mg/ 12 hours (SR) oral tablet, extended release) 1 tab(s) Oral Twice a day 07/29 9pm Unchanged Cholecalciferol (Vitamin D3 2000 intl units oral capsule) 1 capsule Oral Daily R1. ?? 07/30 9am Unchanged Fluoxetine (FLUoxetine 40 mg oral capsule) 1 capsule Oral Daily R1. ?? 07/30 9am Unchanged Furosemide (furosemide 40 mg oral tablet) 1 tab(s) Oral Daily ^1R1. ?? 07/30 9am Unchanged Miscellaneous Rx (EASY TOUCH PEN NEED 31G X 5 MM MISC) See instructions DIRECTED FOUR TIMES DAILY ?? Unchanged Omeprazole (omeprazole 20 mg oral enteric coated capsule) 1 capsule Oral Daily R1. ?? 07/30 9am Test Results Below is a partial list of the most recent Laboratory test results done prior to this discharge. You may have had other tests and procedures not included in this list. Please discuss all test resultswith your provider. Est Creatinine Clearance - 27.43 mL/min (07/27/2023) Basic Metabolic Panel (07/28/2023) ???Sodium - 138 mmol/L???Potassium - 4.2 mmol/L???Chloride - 103 mmol/L???Bicarbonate Level - 24 mmol/L???Anion Gap - 11???Glucose Level - 140 mg/dL???BUN - 13 mg/dL???Creatinine-Blood - 1.1 mg/dL???Estimated GFR Creatinine - 50 ML/MIN/1.73 M2???Calcium - 9.4 mg/dL CBC (07/28/2023) ???WBC - 12.6 k/mm3???RBC - 4.25 m/mm3???Hgb - 10.9 Gm/dL???Hct - 35.2 %???MCV - 82.8 femtoliters???MCH - 25.6 pg???MCHC - 31.0 g/dL???Platelet Count - 536 k/mm3???RDW-SD - 44.9 femtoliters???MPV - 9.3 femtoliters???Nucleated RBC (Automated) - 0.0 #/100 WBC'S???Abs. NRBC - 0.0 k/mm3 CBC w/ Differential (07/25/2023) ???WBC - 11.3 k/mm3???RBC - 4.76 m/mm3???Hgb - 12.2 Gm/dL???Hct - 39.5 %???MCV - 83.0 femtoliters???MCH - 25.6 pg???MCHC - 30.9 g/dL???Platelet Count - 577 k/mm3???RDW-SD - 45.8 femtoliters???MPV - 9.3 femtoliters???Nucleated RBC (Automated) - 0.0 #/100 WBC'S???Abs. NRBC - 0.0 k/mm3???Abs. Neut - 7.7 k/mm3???Abs. Lymph - 2.5 k/mm3???Abs. Potter - 0.7 k/mm3???Abs. Eo - 0.3 k/mm3???Abs. Baso - 0.0 k/mm3???Neut % - 68.3 %???Lymph % - 22.1 %???Potter % - 6.4 %???Eos % - 2.4 %???Baso % - 0.4 %???Imm Gran - 0.4 %???Abs. Imm Gran - 0.1 k/mm3 Comprehensive Metabolic Panel (07/27/2023) ???Sodium - 137 mmol/L???Potassium - 4.6 mmol/L???Chloride - 100 mmol/L???Bicarbonate Level - 25 mmol/L???Anion Gap - 12???Glucose Level - 178 mg/dL???BUN - 14 mg/dL???Creatinine-Blood - 1.1 mg/dL???Estimated GFR Creatinine - 51 ML/MIN/1.73 M2???Calcium - 9.6 mg/dL???Protein, Total - 7.2 Gm/dL???Albumin - 4.0 Gm/dL???AG Ratio - 1.3???Alkaline Phosphatase - 71 units/L???AST (SGOT) - 24 units/L???ALT (SGPT) - 16 units/L???Bilirubin, Total - 0.4 mg/dL COVID-19, RSV, and Flu A/B, Rapid PCR (07/25/2023) ???Influenza A PCR - NEGATIVE???Influenza B PCR - NEGATIVE???RSV PCR - NEGATIVE???COVID-19 PCR Specimen Source - NASAL???COVID-19 PCR Result - NEGATIVE GLUCOSE POC (07/29/2023) ???Glucose, POC - 108 mg/dL High??Sensitivity??Troponin T (07/25/2023) ???High Sensitivity Troponin (HSTnT) - 15 ng/L HOLD LAVENDER TUBE (07/26/2023) ???Hold Lavender Top - SPECIMEN DISCARDED AFTER 24 HOURS. Magnesium Level (07/26/2023) ???Magnesium - 2.1 mg/dL Phosphorus Level (07/26/2023) ???Phosphorus - 2.9 mg/dL Urinalysis w/hold for Urine Culture (07/27/2023) ???Appear/Color, Urine - LIGHT YELLOW???Specific Bovill, Urine - 1.010???pH, Urine - 7.5???Albumin, Urine - 1+???Glucose, Urine - NEGATIVE???Ketones, Urine - NEGATIVE???Bilirubin, Urine - NEGATIVE???Hemoglobin, Urine - NEGATIVE???Nitrite, Urine - NEGATIVE???Leukocyte, Urine - NEGATIVE???Urobilinogen - NORMAL???WBC's, Urine - 3 /HPF???RBC's, Urine - 2 /HPF???Bacteria - SLIGHT???Squamous Epith - 1 /HPF???Hyaline Cast - 1 LPF???Hold Urine Culture - Testing available 48 hours from time of collection. 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 Complicated bereavement?? Depression, major?? 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 Exudative macular degeneration?? GERD (gastroesophageal reflux disease)?? History of skin cancer?? History of total thyroidectomy?? Hypertension?? Hypoglycemia associated with type 2 diabetes mellitus?? Hypothyroidism?? 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 Nephrolithiasis?? Obese class I?? Obesity (BMI 30-39.9)?? Obstructive sleep apnea?? Osteoporosis?? Education Materials Below is the list of Educational Leaflet Providered with your Discharge Instructions. Causes of Syncope?? What Is Syncope??? What Is Syncope??? Causes of Syncope?? Fall??Prevention?? Valuables and Belongings I fully understand and agree that [facility] accepts no responsibility for all my personal property including clothing, toilet articles, radios, jewelry, dentures, hearing aids, rings, money, or any other property that is in my possession or is brought to me after admission. I understand certain valuables may be placed in a hospital safe for a short period of time. I understand that the hospital is not liable for loss or damage due to accident, fire, or other natural occurrence while said property is in the safe. I accept full responsibility for any personal property that I keep with me, and will not hold the hospital responsible in case of loss or disappearance. I acknowledge that i have been encouraged to send valuables and belongings home. ?? Review of Valuable and Belonging List: With patient Date for Pt to Sign Valuables/Belongings: 07/27/23 11:50:00 ?? Other Discharge Information ? Case Management Discharge Plan?? Discharge Plan?? Discharge Agency Information?? Discharge Level of Care at Discharge: Inpatient Rehab Facility/Unit Name of Agency [facility]1: [facility] Discharge Transportation Arranged: [facility] [address] [facility] [phone] Service Categories #1: Occupational Therapy, Physical Therapy, Half-Way Mode of Transportation Arranged: Ambulance Service Comments #1: you are being discharged to [facility] for Rehab. today via Ambulance stretcher. Discharge Arranged Transport Date/Time: 07/29/23 17:00:00 ?? Discharge Nursing Homes/Rehab Facilities: [facility] ??[place] ?? Discharge VNA/Hospice/Home Care: [facility] [phone] ? Pulmonary Rehab Status?? Pulmonary Rehab Discharge Status?? Respiratory Rate: 20 br/min ? Common Emergency Awareness Tips IS IT A STROKE? Act FAST and Check for these signs: FACE Does the face look uneven? ARM Does one arm drift down? SPEECH Does their speech sound strange? TIME Call at any sign of stroke ?? Heart Attack Signs Chest discomfort: Most heart attacks involve discomfort in the center of the chest and lasts more than a few minutes, or goes away and comes back. It can feel like uncomfortable pressure, squeezing, fullness or pain. Discomfort in upper body: Symptoms can include pain or discomfort in one or both arms, back, neck, jaw or stomach. Shortness of breath: With or without discomfort. Other signs: Breaking out in a cold sweat, nausea, or lightheaded. Remember, MINUTES DO MATTER. If you experience any of these heart attack warning signs, call to get immediate medical attention! ?? Smoking can increase your chances of developing chronic health problems and can cause harmful effects to other family members in your house. If you smoke, you are strongly encouraged to quit. Please call [facility] [employer] Link at [phone] or [phone] ([phone]) or log in to [email or web address] for referrals to smoking cessation programs. ?? 988 Suicide & Crisis Lifeline is available 09/02 if you or someone you know needs to find a reason to keep living. By calling 988 you'll be connected to a skilled, trained counselor at a crisis center in your area. INPATIENT DISCHARGE INSTRUCTIONS SIGNATURE PAGE STAS VILLANUEVA Location:[facility] Registration Date and Time:07/28/2023 12:28 EST Primary Care Physician: Georgie FREEMAN, Ezequiel Chino, Attending Physician: Dunia FREEMAN, Fiordaliza, I STAS VILLANUEVA, have received the above patient education materials/instructions and have verbalized understanding. If ambulance or transport services are being used I further acknowledge being givena choice of service. ?? If you need to contact me, please call me at this number: . Patient/Oxygen Therapist Name: Patient/Oxygen Therapist Signature: Relationship to Patient: Witness Name/Signature: Date: * Macy Morales RN: PERFORM Event Display: Patient Education Leaflets Authored Date: [id number] Preventing Falls: Are You at Risk of Falling? ?? 21778 Preventing Falls: Are You at Risk of Falling? As you get older, you're not as steady on your feet as you once were. And you may have health problems you didn't have when you were younger. So it's not surprising that older people are more likely to trip and fall. Falling can be very serious. It can change your overall health and quality of life. That's why it's important to be aware of your own risk of falling. The dangers of falling Falls are one of the main causes of injury in people over age 65. An older person who falls may take longer to get better than a younger person. And, after a fall, an older person is more likely to have problems that don't go away. So preventing falls can help you prevent serious health problems. ?? Are you at risk of falling? Answer these questions to rate your level of risk: ??? Have you fallen or stumbled in the last year? Are you over age 65? Are you ever dizzy or lightheaded with standing? Do you have a hard time getting in and out of the bathtub or on and off the toilet? Do you lean on objects to help you get around? Or do you use a cane or walker? Do you have vision or hearing problems? For example, do you need glasses or hearing aids? Do you have 2 or more long-lasting (chronic) healthconditions? Do you take 3 or more medicines? Have you felt depressed recently? Have youhad more trouble with your memory in recent months? Are there hazards in your home that might cause you to fall, such as loose rugs or poor lighting? Do you have a pet that jumps on you or might trip you? Have you stopped getting regular exercise? Do you have diabetes? Do you have a nervous system disease, such as Parkinson or Alzheimer disease? Do you drink alcohol? Do you walk barefoot or only in socks at home? ?? You can help prevent falls If you answered yes to any of the above questions, take steps to reduce your risk of a fall. Monitoring health conditions and keeping walkways in your home free of clutter are just two ways. Changing is sometimes easier said than done. But keep in mind that even small changes can make you less likely to fall. Ask for help to reduce risk of falling in your home. ?? Fear of falling It's normal to be scared of falling, especially if you've fallen before. But being afraid can actually make you more likely to fall. This is because: ??? Fear might cause you to become less active. Being less active can lead to a loss of strength and balance. ??? Fear can lead to isolation from others, depression, or the use of more medicines or alcohol. And all these things make falling even more likely. To stop the cycle, learn more about ways to prevent falling. Talk to your healthcare provider for more information. As you take control, you may find yourself feeling less afraid. ?? Last Reviewed Date: 2022 ?? 8637-6477 [employer]. All rights reserved. This information is not intended as a substitute for professional medical care. Always follow your healthcare professional's instructions. ?? * Event Display: Discharge/Transfer Note Hospital Authored Date: [id number] * Jessica VANESSA Sherry: PERFORM Event Display: Patient Education/Instruction Authored Date: Inpatient Adult Discharge Instructions [address] [address] Name: STAS VILLANUEVA : 1940 Visit: 07/25/2023 12:15:00 Current Date: 07/27/2023 13:11 Account: [id number] Inpatient Adult Discharge Instructions We would like to thank you for allowing us to assist you with your healthcare needs. The following includes patient education materials and information regarding your injury/illness. Our entire staffstrives to provide an excellent experience for our patients and their families. PLEASE ENSURE YOU FOLLOW-UP PER THE INSTRUCTIONS BELOW! ?? YOUR OPINION IS IMPORTANT TO US! Please complete the survey you may receive by mail or email. Your feedback will be used to make improvements to the healthcare experiences of our patients and their families. Surveys are administered by [employer] ?? If further treatment with your primary care physician or another doctor is recommended, it is important for you to keep the appointment. Call your primary care physician or return to the Emergency Department immediately if your condition worsens, fails to improve, or new symptoms develop. If you need to find a doctor, you can call [facility] Link for a referral at [phone] or toll free at [phone]) or log in to [email or web address].. ?? [facility], in keeping with [facility] guidance, no longer requires face masks for staff, patientsor visitors in most situations. Similiar to time spent indoors at other locations, there is the chance that you were exposed to repiratory viruses during your time with us (such as flu or COVID-19). If you develop symptoms concerning for a viral respiratory infection, please seek testing (and treatment if indicated) from your medical provider or home test kit. ?? You can view and manage your care through the patient portal or by using a health care sandor of your choosing. [employer] is a website that allows you to securely view your medical information including your hospital discharge summary, office visit summaries, medications and follow-up visits. You can also request appointments, renew medications, and request access to your medical information using a health care sandor of your choosing, or just ask a question. You can enroll at [email or web address] or register during your next office visit. You have been discharged from [facility], Patient Care Unit: S3. If you have any questions regarding these instructions after you leave, please call us and we will be happy to assist you. [facility] Your Care Team Attending Physician Jeovanny FREEMAN, [facility] Discharging Providers Romel Casas MD Reason for Admission fall sometime overnight. When VNA came in they found her with ecchymosis surrounding R eye. Pt thinks she may have had LOC. c/o feeling tired and nausea Your Diagnosis Hypoglycemia Ground-level fall Facial bruising Scalp hematoma Insulin dependent type 2 diabetes mellitus Anxiety with depression Acute kidney failure Tests Performed Below is a partial list of the tests performed during your hospitalization. You may have had other tests and procedures not included in this list. Please discuss all test results with your provider. Basic Metabolic Panel CBC w/ Differential Comprehensive Metabolic Panel COVID-19, RSV, and Flu A/B, Rapid PCR GLUCOSE POC High??Sensitivity??Troponin T HOLD LAVENDER TUBE Magnesium Level Phosphorus Level CT Cervical Spine W/O Contrast?-- Results Pending -- CT Head/Brain W/O Contrast CT Maxilloface W/O Contrast XR Hip w/Pelvis 2-3 View Left?-- Results Pending -- XR Humerus Min 2 Views Right XR Knee 1 or 2 Views Left XR Knee 1 or 2 Views Right You will be contacted within 72 hours with your results. Primary Care Provider Georgie FREEMAN, Ezequiel Chino Advance Directive Health Care Proxy on File No Patient refuses to discuss Discharge Vitals Temperature: 98 DegF Height: 150 cm Pulse Rate:??111 bpm??High Weight: 72 kg Respiratory Rate: 18 br/min Body Mass Index:??32 kg/m2??Critical Systolic Blood Pressure:??150 mm Hg??High Body surface area: 1.73 Diastolic Blood Pressure:??88 mm Hg??High ?? Oxygen Saturation: 98 % ?? Studies Pending All tests and labs ordered during this hospital stay have been completed unless listed below. Please discuss all pending results with your provider listed above in these instructions. ?? CT Cervical Spine W/O Contrast CT Head/Brain W/O Contrast XR Hip w/Pelvis 2-3 View Left What to do next Instructions From Your Doctor DIAGNOSIS:??Syncope ?? You were?? admitted after you??syncopized at home and passed out hitting your face on the ground.??Your lab work showed??your blood sugar did dip??dangerously low and you required some juice and??sugar through your IV??and you were treated with??glucose drip thereafter.?? Blood sugars have now improved. ??However you are still not requiring insulin. ?? Levemir??is currently on hold. ??You are currently not being discharged on insulin.?Monitor blood sugars at home.?? Restart Levemir at 8 units every morning, only if fasting blood sugar??greater than 150.?? Short acting insulin has been discontinued.?? Metformin has been discontinued. ?? Blood pressure medications were also??on hold in hospital. ??Currently blood pressures ranging??in 120s to 130s systolic, and diastolic in 80s.?? Lisinopril??is??currently on hold. ??Monitor blood pressure at home. ??If blood pressure??greater than 140/90,??persistently,??take half dose lisinopril that is??20 mg, instead of the 40 mg pill.?? Discussed with your??PCP??on next visit. ?? Follow-up with your PCP??in??3 to 5 days.?? Please call for appointment. ?? Please return to the emergency department if you feel lightheaded or dizzy, if you have chest pain,if you pass out again, if you have??feel confused, if you have numbness or tingling in your arms orlegs or anything else that concerns you. Discharge Orders You Need to Schedule the Following Appointments Follow Up with??Georgie FREEMAN, Ezequiel Chino Where: [address] [place] [phone]- Discharge Medications KAYSTAS :1940 Visit Date:07/25/2023 Medications: Please continue your medications until treatment is completed or stopped by your provider. Medications not listed below should be discontinued. Discuss any questions related to medications with your provider. What How Much When Instructions Next Dose Changed Insulin Detemir (Levemir FlexPen 100 units/ mL subcutaneous solution) See instructions INJECT 8 UNITS SUBCUTANEOUSLY (UNDER THE SKIN) EVERY MORNING ONLY IF FASTING MORNING BLOOD SUGAR >150. ?? 07/28 Changed Miscellaneous Rx (EASY TOUCH PEN NEED 31G X 5 MM MISC) See instructions DIRECTED FOUR TIMES DAILY ?? see instructions Unchanged Aspirin (Aspirin Low Dose 81 mg oral delayed release tablet) 1 tab(s) Oral Daily R1. ?? 07/28 Unchanged Atorvastatin (atorvastatin 10 mg oral tablet) 1 tab(s) Oral Daily R4. ?? 07/28 Unchanged BuPROpion (buPROPion 200 mg/ 12 hours (SR) oral tablet, extended release) 1 tab(s) Oral Twice a day 9pm 07/27 Unchanged Cholecalciferol (Vitamin D3 2000 intl units oral capsule) 1 capsule Oral Daily R1. ?? 9a07/28 Unchanged Fluoxetine (FLUoxetine 40 mg oral capsule) 1 capsule Oral Daily R1. ?? 07/28 Unchanged Furosemide (furosemide 40 mg oral tablet) 1 tab(s) Oral Daily ^1R1. ?? 07/28 Unchanged Omeprazole (omeprazole 20 mg oral enteric coated capsule) 1 capsule Oral Daily R1. ?? 9am 07/28 ?? What How Much When Comments Stop Taking Durable Medical Equipment ([employer] Yasmeen 2 Monitor) See instructions Yasmeen 2 Jerome only ??Pt will pay soto with [employer] coupon that I faxed ??Use to test BS qid for E11.9 ??IDDM ?? Stop Taking Durable Medical Equipment (Yasmeen Sensors 14 day (dispense 2 monthly)) See instructions IDDM ??E11.9 ?? Stop Taking Durable Medical Equipment (one walker) See instructions Dispense one walker with wheels Diagnosis: back pain Please deliver ?? Stop Taking Durable Medical Equipment (Pen Kerrick, 31 G x 5 mm BD Ultra Fine III) See instructions Use four times a day DM Type2 ??E11.9 Office visit ??needed for further refills ?? Stop Taking Glucagon (Glucagon Emergency Kit for Low Blood Sugar 1 mg injection) 1 Milligram Intramuscular Once repeat in 20 minutes if sugars are still < 60 ?? Stop Taking Insulin Lispro (Humalog Kwik Pen 100 units/ mL subcutaneous injection) See instructions INJECT SUBCUTANEOUSLY (UNDER THE SKIN) THREE TIMES DAILY WITH MEALS IF BLOOD SUGAR 120-150 17 [id number] 19 UNITS 201-250 21 UNITS 251-300 23 UNITS 301-350 25 UNITS 351-400 27 UNITS OVER 400 29 UNITS AND CALL PCP (MAX 87 UNITS PER DAY) ?? Stop Taking Levothyroxine (levothyroxine 0.112 mg oral tablet) 1 tab(s) Oral Daily Stop Taking Lidocaine Topical (AneCream 4% topical cream) See instructions APPLY TOPICALLY TWICE A DAY ?? Stop Taking Lidocaine Topical (Anecream) Topically 3 times a day for headaches prescribed by psychiatrist per Pt ?? Stop Taking Lidocaine Topical (Lidoderm 5% film) 1 patch(es) Topically Daily as needed for Pain , Moderate Duration: 7 Days Stop Taking Lisinopril (lisinopril 40 mg oral tablet) 1 tab(s) Oral Daily ^1R1. ?? Stop Taking Metformin (MetFORMIN (Eqv-Glucophage XR) 500 mg oral tablet, extended release) See instructions TAKE 2 TABLETS BY MOUTH DAILY ^2R1 ?? Stop Taking Multivitamin With Minerals (Ocuvite Lutein) Oral Daily Stop Taking Oxycodone (oxyCODONE 5 mg oral tablet) TAKE 1 TABLET BY MOUTH TWICE A DAY NEEDED FOR PAIN ?? Stop Taking Riboflavin (riboflavin 400 mg oral capsule) 1 capsule Oral Daily Stop Taking Zoledronic Acid (Reclast 5 mg/ 100 mL intravenous solution) 5 Milligram Intravenous Infusion Once infused over at least 15 minutes ?? Test Results Below is a partial list of the most recent Laboratory test results done prior to this discharge. You may have had other tests and procedures not included in this list. Please discuss all test resultswith your provider. Est Creatinine Clearance - 25.15 mL/min (07/26/2023) Basic Metabolic Panel (07/26/2023) ???Sodium - 136 mmol/L???Potassium - 4.6 mmol/L???Chloride - 100 mmol/L???Bicarbonate Level - 27 mmol/L???Anion Gap - 9???Glucose Level - 76 mg/dL???BUN - 20 mg/dL???Creatinine-Blood - 1.2 mg/dL???Estimated GFR Creatinine - 46 ML/MIN/1.73 M2???Calcium - 9.0 mg/dL CBC w/ Differential (07/25/2023) ???WBC - 11.3 k/mm3???RBC - 4.76 m/mm3???Hgb - 12.2 Gm/dL???Hct - 39.5 %???MCV - 83.0 femtoliters???MCH - 25.6 pg???MCHC - 30.9 g/dL???Platelet Count - 577 k/mm3???RDW-SD - 45.8 femtoliters???MPV - 9.3 femtoliters???Nucleated RBC (Automated) - 0.0 #/100 WBC'S???Abs. NRBC - 0.0 k/mm3???Abs. Neut - 7.7 k/mm3???Abs. Lymph - 2.5 k/mm3???Abs. Potter - 0.7 k/mm3???Abs. Eo - 0.3 k/mm3???Abs. Baso - 0.0 k/mm3???Neut % - 68.3 %???Lymph % - 22.1 %???Potter % - 6.4 %???Eos % - 2.4 %???Baso % - 0.4 %???Imm Gran - 0.4 %???Abs. Imm Gran - 0.1 k/mm3 Comprehensive Metabolic Panel (07/25/2023) ???Sodium - 139 mmol/L???Potassium - 4.4 mmol/L???Chloride - 98 mmol/L???Bicarbonate Level - 28 mmol/L???Anion Gap - 13???Glucose Level - 57 mg/dL???BUN - 23 mg/dL???Creatinine-Blood - 1.2 mg/dL???Estimated GFR Creatinine - 47 ML/MIN/1.73 M2???Calcium - 9.5 mg/dL???Protein, Total - 7.2 Gm/dL???Albumin - 3.9 Gm/dL???AG Ratio - 1.2???Alkaline Phosphatase - 67 units/L???AST (SGOT) - 15 units/L???ALT(SGPT) - 13 units/L???Bilirubin, Total - 0.2 mg/dL COVID-19, RSV, and Flu A/B, Rapid PCR (07/25/2023) ???Influenza A PCR - NEGATIVE???Influenza B PCR - NEGATIVE???RSV PCR - NEGATIVE???COVID-19 PCR Specimen Source - NASAL???COVID-19 PCR Result - NEGATIVE GLUCOSE POC (07/27/2023) ???Glucose, POC - 217 mg/dL High??Sensitivity??Troponin T (07/25/2023) ???High Sensitivity Troponin (HSTnT) - 15 ng/L HOLD LAVENDER TUBE (07/26/2023) ???Hold Lavender Top - SPECIMEN DISCARDED AFTER 24 HOURS. 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 Complicated bereavement?? Depression, major?? 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 Exudative macular degeneration?? GERD (gastroesophageal reflux disease)?? History of skin cancer?? History of total thyroidectomy?? Hypertension?? Hypoglycemia associated with type 2 diabetes mellitus?? Hypothyroidism?? 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 retirement current use of insulin - checks glucose and administers insulin ??4 times daily?? Nephrolithiasis?? Obese class I?? Obesity (BMI 30-39.9)?? Obstructive sleep apnea?? Osteoporosis?? Education Materials Below is the list of Educational Leaflet Providered with your Discharge Instructions. Valuables and Belongings I fully understand and agree that [facility] accepts no responsibility for all my personal property including clothing, toilet articles, radios, jewelry, dentures, hearing aids, rings, money, or any other property that is in my possession or is brought to me after admission. I understand certain valuables may be placed in a hospital safe for a short period of time. I understand that the hospital is not liable for loss or damage due to accident, fire, or other natural occurrence while said property is in the safe. I accept full responsibility for any personal property that I keep with me, and will not hold the hospital responsible in case of loss or disappearance. I acknowledge that i have been encouraged to send valuables and belongings home. ?? Review of Valuable and Belonging List: With patient Date for Pt to Sign Valuables/Belongings: 07/27/23 11:50:00 ?? Other Discharge Information ? Case Management Discharge Plan?? Discharge Plan?? Discharge Agency Information?? Discharge Level of Care at Discharge: Homehealth/VNA Name of Agency #1: [facility] Discharge Transportation Arranged: [facility] [employer] Morris Lopez [facility] [phone] Service Categories #1: Half-Way Mode of Transportation Arranged: [place] Service Comments #1: [facility] will call you to coordinate homecare visits Discharge Arranged Transport Date/Time: 07/27/23 12:30:00 ?? Discharge VNA/Hospice/Home Care: [facility] [phone] ? Pulmonary Rehab Status?? Pulmonary Rehab Discharge Status?? Respiratory Rate: 18 br/min ? Common Emergency Awareness Tips IS IT A STROKE? Act FAST and Check for these signs: FACE Does the face look uneven? ARM Does one arm drift down? SPEECH Does their speech sound strange? TIME Call at any sign of stroke ?? Heart Attack Signs Chest discomfort: Most heart attacks involve discomfort in the center of the chest and lasts more than a few minutes, or goes away and comes back. It can feel like uncomfortable pressure, squeezing, fullness or pain. Discomfort in upper body: Symptoms can include pain or discomfort in one or both arms, back, neck, jaw or stomach. Shortness of breath: With or without discomfort. Other signs: Breaking out in a cold sweat, nausea, or lightheaded. Remember, MINUTES DO MATTER. If you experience any of these heart attack warning signs, call to get immediate medical attention! ?? Smoking can increase your chances of developing chronic health problems and can cause harmful effects to other family members in your house. If you smoke, you are strongly encouraged to quit. Please call [facility] [employer] Link at [phone] or [phone] ([phone]) or log in to [email or web address] for referrals to smoking cessation programs. ?? 448 Suicide & Crisis Lifeline is available 09/02 if you or someone you know needs to find a reason to keep living. By calling 769 you'll be connected to a skilled, trained counselor at a crisis center in your area. INPATIENT DISCHARGE INSTRUCTIONS SIGNATURE PAGE STAS VILLANUEVA Location:[facility] Registration Date and Time:07/25/2023 12:15 EST Primary Care Physician: Ezequiel Jacques MD, Attending Physician: Jeovanny FREEMAN, [place], I STAS VILLANUEVA, have received the above patient education materials/instructions and have verbalized understanding. If ambulance or transport services are being used I further acknowledge being givena choice of service. ?? If you need to contact me, please call me at this number: . Patient/Oxygen Therapist Name: Patient/Oxygen Therapist Signature: Relationship to Patient: Witness Name/Signature: Date: * Sherry Lopez RN: PERFORM Event Display: Patient Education Leaflets Authored Date: [id number] What Is Syncope? ?? 59082 What Is Syncope? Syncope is also known as fainting or a blackout. It's an abrupt and short-term loss of consciousness and motor tone. It's often caused by a sudden drop in blood flow to the brain or a lack of oxygen to the brain. It's then followed by complete and often rapid spontaneous recovery. The heart pumps blood nonstop to the brain and the rest of the body. Understanding heart rate and blood pressure changes Your brain and body need a steady flow of oxygen-rich blood. Your heart rate and blood pressure change to keep that flow steady throughout all your activities. ??? The heart makes electrical signals that move through it on pathways. These signals set the heart rate. They also tell the heart when topump blood. ??? In response to your body???s needs, your brain may also trigger changes in your heart rate and blood pressure. Sensors in the body detect the amount of blood flow going to the brain and other parts of the body. If these sensors detect low blood flow, they signal the body to increasethe amount of fluid in the blood vessels??and increase the heart rate to provide more circulation. ??? The blood leaving the heart with each contraction supplies oxygen and nutrients as it flows in your brain. ?? Warning signs Syncope often happens suddenly. Warning signs include: ??? Dimmed, blackened, or tunnel vision ??? Lightheadedness ??? Sleepiness ??? Rapid heartbeat Some people may also feel nauseated or sweaty. But you may have no warning signs at all. After syncope, you get better quickly. But you may feel tired. Don't drive if you are having warning signs that you may faint. ?? Is it serious? Syncope is a common problem with many possible causes. Often these causes are not serious. For instance, syncope can be caused by standing for too long or sitting up too fast. In some cases, you may never faint again. But if you have syncope with a heart problem, it can be a warning sign of a more serious problem. For this reason, your healthcare provider may order several tests to look at heart function and rhythm. If you have had syncope, talk with your healthcare provider. In older adults, syncope may be a sign that a heart attack has happened. Don't delay seeking treatment. Even if the cause of syncope is not serious, there is a risk of injury from falling when you lose consciousness. When possible, finding a cause can reduce this risk. ?? Last Reviewed Date: 2021 ?? [employer]. All rights reserved. This information is not intended as a substitute for professional medical care. Always follow your healthcare professional's instructions. ?? * Sherry Lopez RN: PERFORM Event Display: Patient Education Leaflets Authored Date: [id number] Causes of Syncope ?? 45483 Causes of Syncope Syncope (fainting) has many causes. Sometimes it's not serious. In other cases, it's a sign of a heart problem. But treatment can help. How to say it [id number] ?? When syncope is not serious Most causes of syncope are not serious and may be related to: ??? Strong feelings, such as anxiety or fear. A nerve signal may briefly change your heart rate and lower your blood pressure too much. ??? Standing for too long. Standing may cause blood to pool in your legs. When this happens, your brain may not get all the blood it needs. ??? Standing up too fast. Your blood pressure may not adjust fast enough to changes in posture and may drop too low. Certain medicines can also cause this problem. Some medicines that can cause a drop in blood pressure include diuretics, blood pressure medicines, and medicines for chest pain. ??? Reaction to normal body functions. When you go to the bathroom,have gastrointestinal discomfort, upset stomach (nausea), or pain, your heart may have a natural reflex to slow down and lower blood pressure. This can result in syncope. This may also follow exercise, eating, laughter, weight lifting, or playing musical instruments like the trumpet or trombone. ?? When heart trouble causes syncope A heart problem can lower the amount of oxygen-rich blood that gets to the brain. Heart trouble canbe serious and even life-threatening if not treated. Some of these conditions include: ??? A slow heart rate. Electrical signals tell the chambers of the heart when to pump. But the signals may be slowed or blocked (heart block) as they travel on the heart???s electrical pathways. Thiscan be caused by aging, scarred heart tissue, or damage from heart disease. When the heart rate slows, not enough blood is pumped. ??? A fast heart rate. Some things can make the heart race. For instance, a heart attack??can create abnormal electrical signals. These signals can make the heart suddenly beat very fast. The heart pumps before the chambers can adequately fill with blood. So less blood gets to the brain and other parts of the body. Illegal drugs, certain medicines, heart disease, trey inherited condition can also cause this. ??? A heart valve problem. Blood travels through the chambers of the heart as it pumps. Heart valves open and close to help move blood in the right direction. But a hardened or scarred valve may not open or close fully. As a result, less blood is pumped through the heart to the brain and body. Most often, syncope occurs when a person's aortic valve is narrowed and they do strenuous activity. ??? A heart muscle problem. Some people develop a thickened heart muscle that blocks blood flow out of the heart to the body (called hypertrophic cardiomyopathy). Being dehydrated and having this condition can raise the risk for syncope. ??? A cardiovascular problem. Blood clots in your lungs, increased blood pressure in the vessels in the lungs, or injury to the vessel klein can also prevent proper flow of oxygenated blood to the brain. Whatever the cause of syncope, it's important to see your healthcare provider. You may need to be seen by a senior living sales counselor or neurologist. If you have syncope and haven't been seen by a provider yet, it's important to: ??? Not drive ??? Not use heavy machinery ??? Not do activities where you could fall and hurt yourself ?? Last Reviewed Date: 2021 ?? 8028-6178 [employer]. All rights reserved. This information is not intended as a substitute for professional medical care. Always follow your healthcare professional's instructions. ?? 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 Member Role: Orthopaedic Doctor Name: Ezequiel Jacques MD Position: [facility] Physician - Primary Care Member Role: PCP Address: Address: [address] [place] [id number]- Name: Madhuri Leonard RN Position: [facility] RN Member Role: Primary Care Nurse Name: Sherry Lopez RN Position: [facility] RN Member Role: Primary Care Nurse Name: Nghia DANGELO Attending Position: [facility] ED Medicine Name: Robbie Underwood RN Position: [facility] ED RN W/OE and Tasks Member Role: Patient Care Provider Name: Pamela Manuel Position: [facility] ED [facility] Member Role: Patient Care Provider Name: Bella Mae Position: [facility] ED [facility] Member Role: Patient Care Provider Care Team Related Persons Name: TAYLOR CUEVAS Address: [address] [address] Name: COLEEN SANCHEZ
--- OUTSIDE RECORDS SUMMARY | 2023-08-28 13:10 | XMS_ITS | Continuity of Care Document ---
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) - 07/23/23 terminal carman current use of insulin - checks glucose and administers insulin 4 times daily(Discharge Diagnosis) - 07/23/23 Attending Physician: Not on Staff, Attending MD Referring Physician: Ezequiel Jacques MD Allergies, Adverse Reactions, Alerts Substance Reaction Severity Status morphine anaflactic shock Active penicillins anaflactic shock Active Immunizations Given and Recorded Vaccine Date Status Refusal Reason tetanus/diphtheria/pertussis, acel(Tdap) 07/25/23 Given tetanus/diphtheria/pertussis, acel(Tdap) 1 12/21/17 Given [id number] 12y+ bivalent booster vax 11/27/22 Recorded influenza virus vaccine, inactivated 2 05/03/18 Gi adwoa influenza virus vaccine, inactivated 06/09/16 Give n influenza virus vaccine, inactivated 04/19/15 Give n pneumococcal 23-valent vaccine 06/09/16 Given pneumococcal 13-valent vaccine 04/03/15 Given 1Result Comment: [12/21/2017] [id number] 2Result Comment: [05/03/2018] [facility]-[id number] Medications Aspirin Low Dose 81 mg oral delayed release tablet 1 tablet, By Mouth, Daily, R1., # 30 tablet, 5 Refills, Maintenance, 06/05/23 20:07:00 EST, [facility], 150.5, cm, 01/16/23 10:14:00 EDT, Height Start Date: 06/05/23 Status: Ordered atorvastatin 10 mg oral tablet 1 tablet, By Mouth, Daily, R4., # 28 tablet, 5 Refills, Maintenance, 06/05/23 20:07:00 EST, [facility], 150.5, cm, 01/16/23 10:14:00 EDT, Height Start Date: 06/05/23 Status: Ordered buPROPion 200 mg/12 hours (SR) oral tablet, extended release 1 tablet, By Mouth, 2 times a day, # 60 tablet, 11 Refills, Maintenance, 02/12/23 4:32:00 EDT, [facility], 150.5, cm, 01/16/23 10:14:00 [...] capsule, 5 Refills, Maintenance, 02/10/23 6:29:00 EDT, [facility], 150.5, cm, 01/16/23 10:14:00 EDT, Height Start Date: 02/10/23 Status: Ordered furosemide 40 mg oral tablet 1, tablet, By Mouth, Daily, ^1R1., # 30 tablet, Refills 5, Maintenance, 07/01/23 10:17:00 EST, Route to Pharmacy Electronically, [facility], 150.5, cm, 01/16/23 10:14:00 EDT, Height Start Date: 07/01/23 Status: Ordered Levemir FlexPen 100 units/mL subcutaneous solution See Instructions, INJECT 8 UNITS SUBCUTANEOUSLY (UNDER THE SKIN) EVERY MORNING ONLY IF FASTING MORNING BLOOD SUGAR >150., # 24 mL, 5 Refills, Maintenance, 02/09/23 18:26:00 EDT, [email or web address], 150.5, cm, 01/16/23 10:14:00 EDT, Height Start Date: 02/09/23 Status: Ordered omeprazole 20 mg oral enteric coated capsule 1 capsule, By Mouth, Daily, R1., # 28 capsule, 5 Refills, Maintenance, 06/05/23 19:40:00 EST, [email or web address], 150.5, cm, 01/16/23 10:14:00 EDT, Height Start Date: 06/05/23 Status: Ordered Vitamin D3 2000 intl units oral capsule 1 capsule, By Mouth, Daily, R1., # 28 capsule, 5 Refills, Maintenance, 07/01/23 10:15:00 EST, [email or web address], 150.5, cm, 01/16/23 10:14:00 EDT, Height [...] 2 with diabetic background retinopathy Confirmed Active Diagnosis Diagnosis Type Effective Dates Health Status Clinical Service Informant 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 Discharge Diagnosis 07/23/23 [facility] current use of insulin - checks glucose and administers insulin 4 times daily Discharge Diagnosis 07/23/23 Vital Signs Most recent to oldest [Reference Range]: 1 Height 150.5 cm (07/23/23 11:16 AM) Weight 72.2 kg (07/23/23 11:16 AM) Oxygen Saturation [94-100 %] 100 % (07/23/23 11:16 AM) Pulse Rate [55-90 bpm] 114 bpm *H* (07/23/23 11:16 AM) Body Mass Index [18.5-24.99 kg/m2] 31.88 kg/m2 *>HHI* (07/23/23 11:16 AM) Blood Pressure [90-138/55-84 mm Hg] 119/ 66mm Hg (07/23/23 11:16 AM) Blood pressure sites Arm, right (07/23/23 11:16 AM) Weight Obtained Via Standing scale (07/23/23 11:16 AM) Social History Social History Type [...] Member Role: Primary Care Nurse Name: [facility] Marina 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
--- OUTSIDE RECORDS SUMMARY | 2023-08-28 13:12 | XMS_ITS | Continuity of Care Document ---
Author Name Unknown Organization [facility] Serjio lt Address [address] [place] [address]- Care Team Providers Care Inspector Bicycle Name Role Phone Georgie FREEMAN, Ezequiel Chino Primary Care Physician [place] [facility] [place] 08[place]23 [facility] Adult [address] [place] [address]- Allergies, Adverse Reactions, Alerts Substance Reaction Severity Status morphine anaflactic shock Active penicillins anaflactic shock Active Immunizations Given and Recorded Vaccine Date Status Refusal Reason tetanus/diphtheria/pertussis, acel(Tdap) 07/25/23 Given tetanus/diphtheria/pertussis, acel(Tdap) 1 12/21/17 Given [id number] 12y+ bivalent booster vax 11/27/22 Recorded influenza virus vaccine, inactivated 2 05/03/18 Gi adwoa influenza virus vaccine, inactivated 06/09/16 Give n influenza virus vaccine, inactivated 04/19/15 Give n pneumococcal 23-valent vaccine 06/09/16 Given pneumococcal 13-valent vaccine 04/03/15 Given 1Result Comment: [12/21/2017] [id number] 2Result Comment: [05/03/2018] [facility]-[id number] Medications Aspirin Low Dose 81 mg oral delayed release tablet 1 tablet, By Mouth, Daily, R1., # 30 tablet, 5 Refills, Maintenance, 06/05/23 20:07:00 EST, [facility], 150.5, cm, 01/16/23 10:14:00 EDT, Height Start Date: 06/05/23 Status: Ordered atorvastatin 10 mg oral tablet 1 tablet, By Mouth, Daily, R4., # 28 tablet, 5 Refills, Maintenance, 06/05/23 20:07:00 EST, [facility], 150.5, cm, 01/16/23 10:14:00 EDT, Height Start Date: 06/05/23 Status: Ordered buPROPion 200 mg/12 hours (SR) oral tablet, extended release 1 tablet, By Mouth, 2 times a day, # 60 tablet, 11 Refills, Maintenance, 02/12/23 4:32:00 EDT, [facility], 150.5, cm, 01/16/23 10:14:00 EDT, [...] capsule, 5 Refills, Maintenance, 08/06/23 15:49:00 EST, [facility], 150, cm, 07/29/23 4:29:00 EST, Height, 72, kg, 07/26/23 0:10:00 EST, Dry Weight Start Date: 08/06/23 Status: Ordered furosemide 40 mg oral tablet 1, tablet, By Mouth, Daily, ^1R1., # 30 tablet, Refills 5, Maintenance, 07/01/23 10:17:00 EST, Route to Pharm[facility] Electronically, [facility], 150.5, cm, 01/16/23 10:14:00 EDT, Height Start Date: 07/01/23 Status: Ordered Levemir FlexPen 100 units/mL subcutaneous solution See Instructions, INJECT 8 UNITS SUBCUTANEOUSLY (UNDER THE SKIN) EVERY MORNING ONLY IF FASTING MORNING BLOOD SUGAR >150., # 24 mL, 5 Refills, Maintenance, 02/09/23 18:26:00 EDT, [facility], [facility], cm, 01/16/23 10:14:00 EDT, Height Start Date: 02/09/23 Status: Ordered omeprazole 20 mg oral enteric coated capsule 1 capsule, By Mouth, Daily, R1., # 28 capsule, 5 Refills, Maintenance, 06/05/23 19:40:00 EST, [facility], 150.5, cm, 01/16/23 10:14:00 EDT, Height [...] capsule, 5 Refills, Maintenance, 07/01/23 10:15:00 EST, [facility], 150.5, cm, 01/16/23 10:14:00 EDT, Height [...] Member Role: Primary Care Nurse Name: Hardeep ZambranoCarrizo Springsjaron) Marina 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
--- OUTSIDE RECORDS SUMMARY | 2023-08-28 13:12 | XMS_ITS | Continuity of Care Document ---
Author Name Unknown Organization [facility] ter Address [address] [place] [id number]- Care Team Providers Care It Program Auditor Name Role Phone Ezequiel Jacques MD Primary Care Physician Encounter [facility] Date(s): 08/08/23 - 08/09/[address] [address]- Encounter Diagnosis Hip pain(Final) - 08/08/23 Closed fracture of greater trochanter of left femur(Final) - 08/09/23 Discharge Disposition: A-D/C Home Attending Physician: Octaviano Costa MD Admitting Physician: Octaviano Costa MD Referring Physician: Not on Staff, Referring MD Allergies, Adverse Reactions, Alerts Substance Reaction Severity Status morphine anaflactic shock Active penicillins anaflactic shock Active Immunizations Given and Recorded Vaccine Date Status Refusal Reason tetanus/diphtheria/pertussis, acel(Tdap) 07/25/23 Given tetanus/diphtheria/pertussis, acel(Tdap) 1 12/21/17 Given [id number] 12y+ bivalent booster vax 11/27/22 Recorded influenza virus vaccine, inactivated 2 05/03/18 Gi adwoa influenza virus vaccine, inactivated 06/09/16 Give n influenza virus vaccine, inactivated 04/19/15 Give n pneumococcal 23-valent vaccine 06/09/16 Given pneumococcal 13-valent vaccine 04/03/15 Given 1Result Comment: [12/21/2017] [id number] 2Result Comment: [05/03/2018] [facility]-[id number] Medications Aspirin Low Dose 81 mg oral delayed release tablet 1 tablet, By Mouth, Daily, R1., # 30 tablet, 5 Refills, Maintenance, 06/05/23 20:07:00 EST, [facility], 150.5, cm, 01/16/23 10:14:00 EDT, Height Start Date: 06/05/23 Status: Ordered atorvastatin 10 mg oral tablet 1 tablet, By Mouth, Daily, R4., # 28 tablet, 5 Refills, Maintenance, 06/05/23 20:07:00 EST, [facility], 150.5, cm, 01/16/23 10:14:00 EDT, Height Start Date: 06/05/23 Status: Ordered buPROPion 200 mg/12 hours (SR) oral tablet, extended release 1 tablet, By Mouth, 2 times a day, # 60 tablet, 11 Refills, Maintenance, 02/12/23 4:32:00 EDT, [facility], 150.5, cm, 01/16/23 10:14:00 EDT, [...] capsule, 5 Refills, Maintenance, 08/06/23 15:49:00 EST, [facility], 150, cm, 07/29/23 4:29:00 EST, Height, 72, kg, 07/26/23 0:10:00 EST, Dry Weight Start Date: 08/06/23 Status: Ordered furosemide 40 mg oral tablet 1, tablet, By Mouth, Daily, ^1R1., # 30 tablet, Refills 5, Maintenance, 07/01/23 10:17:00 EST, Route to Pharmacy Electronically, [facility], 150.5, cm, 01/16/23 10:14:00 EDT, Height Start Date: 07/01/23 Status: Ordered Levemir FlexPen 100 units/mL subcutaneous solution See Instructions, INJECT 8 UNITS SUBCUTANEOUSLY (UNDER THE SKIN) EVERY MORNING ONLY IF FASTING MORNING BLOOD SUGAR >150., # 24 mL, 5 Refills, Maintenance, 02/09/23 18:26:00 EDT, [facility], 150.5, cm, 01/16/23 10:14:00 EDT, Height Start Date: 02/09/23 Status: Ordered omeprazole 20 mg oral enteric coated capsule 1 capsule, By Mouth, Daily, R1., # 28 capsule, 5 Refills, Maintenance, 06/05/23 19:40:00 EST, [facility], 150.5, cm, 01/16/23 10:14:00 EDT, Height [...] capsule, 5 Refills, Maintenance, 07/01/23 10:15:00 EST, [facility], 150.5, cm, 01/16/23 10:14:00 EDT, Height Start Date: 07/01/23 Status: Ordered Problem List Condition Confirmation Course Effective Dates Status H ealth Status Informant Obesity (BMI 30-39.9) Confirmed Active Complicated bereavement Confirmed Active half-way current use of insulin - checks glucose [...] Exam Date Time Procedure Performing Provider Status 08/08/23 5:35 PM XR Hip w/Pelvis 2-3 View Left Delaney Duarte; Auth (Verified) Notes: (XR Hip w/Pelvis 2-3 View Left) Reason For Exam: Pain RESULT: XR Hip w/Pelvis 2-3 View Left XR Hip w/Pelvis 2-3 View Left Hx of Present Illness: Coming from home, discharged from [facility] yesterday. Unable to ambulate athome, and do ADLs, L knee-L rib pain, L hip fx, from previous fall. A ox4; Reason: Pain; Clinical Question(s): Fracture COMPARISON: . FINDINGS: 07/27/2023 and 01/28/2016. Suggestion of cortical defects of the left greater trochanter. 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 Extensive multilevel discogenic degenerative changes are again seen with disc space narrowing and spurring. IMPRESSION: Suggestion of cortical defects of the left greater trochanter concerning for a nondisplaced fracture. Further evaluation with a CT scan or MRI is recommended. An actionable message (Green) has been communicated via the [employer] system on 08/08/2023 6:11 PM, Message ID [id number]. WSN: [id number] Ordering Physician: Charles Davis Dictated By: Aruna Bernal MD Dictated Date/Time: 08/08/23 6:11 pm Reviewed By: Aruna Bernal MD Signed By: Aruna Bernal MD Signed Date/Time: 08/08/23 6:11 pm Transcribed By: MIRNA Transcribed Date/Time: 08/08/23 6:08 pm Vital Signs Most recent to oldest [Reference Range]: 1 2 3 Oxygen Saturation [94-100 %] 97 % (08/09/23 1:52 PM) 91 % *L* (08/09/23 1:00 PM) 98 % (08/09/23 7:59 AM) Pulse Rate [55-90 bpm] 93 bpm *H* (08/09/23 3:05 PM) 104 bpm *H* (08/09/23 1:52 PM) 101 bpm *H* (08/09/23 1:00 PM) Blood Pressure [90-138/55-84 mm Hg] 106/49mm Hg (08/09/23 1:00 PM) 108/87mm Hg (08/09/23 7:59 AM) 131/71mm Hg (08/09/23 4:19 AM) Respiratory Rate [16-30 br/min] 16 br/min (1/21/24 1:00 PM) 20 br/min (08/09/23 7:59 AM) 19 br/min (08/09/23 4:19 AM) Temperature [96.8-100.4 DegF] 97.9 DegF (08/09/23 1:00 PM) 98.3 DegF (08/09/23 7:59 AM) 98.3 DegF (08/09/23 4:19 AM) Mode of Delivery (Oxygen) Room air (08/09/23 1:52 PM) Room air (08/09/23 1:00 PM) Room air (08/09/23 7:59 AM) Blood pressure sites Arm, right (08/09/23 1:00 PM) Arm, left (08/09/23 7:59 AM) Arm, left (08/09/23 4:19 AM) Temperature Route Oral (08/09/23 1:00 PM) Oral (08/09/23 7:59 AM) Oral (08/09/23 4:19 AM) Social History Social History Type Response Smoking Status Former smoker entered on: 09/14/17 Sex Note * Razia Ramachandran RN: PERFORM, SIGN, VERIFY Event Display: Case Management Discharge Plan Authored Date: Patient: STAS VILLANUEVA Age: 83 years Sex: Female : 1940 Associated Diagnoses: None Author: Razia Ramachandran RN Discharge Plan Case Management Discharge Plan : Case Management Discharge Plan Data 08/09/2023 12:49 EST Discharge Level of Care at Discharge Homehealth/VNA Discharge VNA/Hospice/Home Care [facility] [phone] Discharge Transportation Arranged [facility] [address] [facility] [phone] Discharge Arranged Transport Date/Time 08/09/2023 15:00 Mode of Transportation Arranged Ambulance Name of Agency #1 [facility] Categories #1 Home health aide, Occupational Therapy, Physical Therapy, Custodial Service Comments #1 you are being discharged from the emergency room to home with home services [facility]- they will call you in next 24-48 hours to set up first home visit- you ,may call them [phone] Name of Person Notified of Transfer you/ your HCP- Marilee Costa MD, Octaviano Huynh: PERFORM Event Display: Patient Education Leaflets Authored Date: Leg Fracture ?? [id number] Leg Fracture You have a break (fracture) of the leg. A fracture is treated with a splint, cast, or special boot.It will usually take about 8 to 12 weeks for the fracture to heal, but it can take longer in some cases. If you have a severe injury, you may need surgery to fix it. Home care Follow these guidelines when caring for yourself at home: ??? You will be given a splint, cast, boot, or other device to keep the injured area from moving. Unless you were told otherwise, use crutches or a walker. Don???t put weight on the injured leg until your healthcare provider says you can do so. (You can rent crutches and a walker at many pharmacies and surgical or orthopedic supply stores.) ??? Keep your leg elevated (raised) to reduce pain and swelling. When sleeping, put a pillow underthe injured leg. When sitting, support the injured leg so it's above your heart. This is very important during the first 2 days (48 hours). ??? Put an ice pack on the injured area. Do this for 20 minutes every 1 to 2 hours the first day for pain relief. You can make an ice pack by wrapping a plastic bag of ice cubes in a thin towel. As the ice melts, be careful that the cast, splint, or boot doesn???t get wet. You can put the ice pack directly over the splint or cast. Continue using the ice pack 3 to 4 times a day for the next 2 days. Then use the ice pack as needed to ease pain and swelling.??? Keep the cast, splint, or boot completely dry at all times. Bathe with your cast, splint, or boot out of the water. Protect it with 2 layers of plastic, such as 2 plastic bags, rubber-banded or taped at the top end. Or use a waterproof shield. If a boot or fiberglass cast or splint gets wet, you can dry it with a hairmasters manager on the cool setting. ??? You may use acetaminophen or ibuprofen to control pain, unless another pain medicine was prescribed. If you have chronic liver or kidney disease, talk with your healthcare provider before using these medicines. Also talk with your provider if you???ve had a stomach ulcer or gastrointestinal bleeding, or if you take a blood thinner. ??? Don???t put creams or objects under the cast if you have itching. ?? Follow-up care Follow up with your healthcare provider as advised. This is to make sure the bone is healing the way it should. If a splint was put on, it may be converted to a cast at your next visit. X-rays may be taken. You will be told of any new findings that may affect your care. ?? When to get medical advice Call your healthcare provider right away if any of the following occur: ??? The cast or splint cracks ??? The plaster cast or splint becomes wet or soft ??? The fiberglass cast or splint stays wet for more than 24 hours ??? Bad odor from the cast or wound fluid stains the cast ??? Tightness or painunder the cast or splint gets worse ??? Toes become swollen, cold, blue, numb, or tingly ??? You can???t move your toes ??? Skin around cast or splint becomes red or irritated ??? Fever of 100.4??F (38??C) or higher, or as directed by your healthcare provider ??? Shaking chills ?? Last Reviewed Date: 2022 ?? [id number] The The [employer]. All rights reserved. This information is not intended as a substitute for professional medical care. Always follow your healthcare professional's instructions. ?? Patient Care team information Care Team Personnel Name: Danyel VANESSA, Shelbi Position: [facility] RN Member Role: Primary Care Nurse Name: Oliva Stone RN Position: [facility] RN Member Role: Primary Care Nurse Name: Shahnaz Peters RN Position: [facility] RN Member Role: Primary Care Nurse Name: Triny Cooper RN Position: [facility] RN Member Role: Primary Care Nurse Name: Hardeep ([place]) Marina Position: 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 Physician - Primary Care Member Role: PCP Address: Address: [address] [place] [address]- Name: Madhuri Leonard RN Position: [facility] SN RN Member Role: Primary Care Nurse Name: Sherry Lopez RN Position: [facility] RN Member Role: Primary Care Nurse Care Team Related Persons Name: TAYLOR CUEVAS Address: home [address] [place] [address] Name: MARILEE SANCHEZ
--- OUTSIDE RECORDS SUMMARY | 2023-08-28 13:12 | XMS_ITS | Continuity of Care Document ---
Author Name Unknown Organization [facility] Ser[facility] Address [address] [place] [address]- Care Team Providers Care Legal Billing Clerk Name Role Phone Georgie FREEMAN, Ezequiel Chino Primary Care Physician Encounter [facility] Date(s): 07/01/23 - 07/31/23 [facility] [address] [place] [address]- Allergies, Adverse Reactions, Alerts Substance Reaction Severity Status morphine anaflactic shock Active penicillins anaflactic shock Active Immunizations Given and Recorded Vaccine Date Status Refusal Reason tetanus/diphtheria/pertussis, acel(Tdap) 07/25/23 Given tetanus/diphtheria/pertussis, acel(Tdap) 1 12/21/17 Given [id number] 12y+ bivalent booster vax 11/27/22 Recorded influenza virus vaccine, inactivated 2 05/03/18 Gi adwoa influenza virus vaccine, inactivated 06/09/16 Give n influenza virus vaccine, inactivated 04/19/15 Give n pneumococcal 23-valent vaccine 06/09/16 Given pneumococcal 13-valent vaccine 04/03/15 Given 1Result Comment: [12/21/2017] [id number] 2Result Comment: [05/03/2018] [facility]-[id number] Medications Aspirin Low Dose 81 mg oral delayed release tablet 1 tablet, By Mouth, Daily, R1., # 30 tablet, 5 Refills, Maintenance, 06/05/23 20:07:00 EST, [facility], 150.5, cm, 01/16/23 10:14:00 EDT, Height Start Date: 06/05/23 Status: Ordered atorvastatin 10 mg oral tablet 1 tablet, By Mouth, Daily, R4., # 28 tablet, 5 Refills, Maintenance, 06/05/23 20:07:00 EST, [facility], 150.5, cm, 01/16/23 10:14:00 EDT, Height Start Date: 06/05/23 Status: Ordered buPROPion 200 mg/12 hours (SR) oral tablet, extended release 1 tablet, By Mouth, 2 times a day, # 60 tablet, 11 Refills, Maintenance, 02/12/23 4:32:00 EDT, [facility], 150.5, cm, 01/16/23 10:14:00 [...] capsule, 5 Refills, Maintenance, 02/10/23 6:29:00 EDT[facility], cm, 01/16/23 10:14:00 EDT, Height Start Date: 02/10/23 Status: Ordered furosemide 40 mg oral tablet 1, tablet, By Mouth, Daily, ^1R1., # 30 tablet, Refills 5, Maintenance, 07/01/23 10:17:00 EST, Route to Pharmacy Electronically, [facility], 150.5, cm, 01/16/23 10:14:00 EDT, Height Start Date: 07/01/23 Status: Ordered Levemir FlexPen 100 units/mL subcutaneous solution See Instructions, INJECT 8 UNITS SUBCUTANEOUSLY (UNDER THE SKIN) EVERY MORNING ONLY IF FASTING MORNING BLOOD SUGAR >150., # 24 mL, 5 Refills, Maintenance, 02/09/23 18:26:00 EDT, [facility], 150.5, cm, 01/16/23 10:14:00 EDT, Height Start Date: 02/09/23 Status: Ordered omeprazole 20 mg oral enteric coated capsule 1 capsule, By Mouth, Daily, R1., # 28 capsule, 5 Refills, Maintenance, 06/05/23 19:40:00 EST, [facility], 150.5, cm, 01/16/23 10:14:00 EDT, Height Start Date: 06/05/23 Status: Ordered Vitamin D3 2000 intl units oral capsule 1 capsule, By Mouth, Daily, R1., # 28 capsule, 5 Refills, Maintenance, 07/01/23 10:15:00 EST, [facility], 150.5, cm, 01/16/23 10:14:00 EDT, Height Start Date: 07/01/23 Status: Ordered Problem List Condition Confirmation Course Effective Dates Status H ealth Status Informant Obesity (BMI 30-39.9) Confirmed Active Complicated bereavement Confirmed Active 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 - checks glucose [...] Team Personnel Name: Shelbi Montaño RN Position: [facility] RN Member Role: Primary Care Nurse Name: Oliva Stone RN Position: S RN Member Role: Primary Care Nurse Name: Shahnaz Peters RN Position: [facility] RN Member Role: Primary Care Nurse Name: Triny Cooper RN Position: [facility] RN Member Role: Primary Care Nurse Name: Hardeep ([place]) Marina Position: [facility] virtualization consultant Member Role: Developmental Behavioral Physician Name: Ezequiel Jacques MD Position: [facility] Physician - Primary Care Member Role: PCP Address: Address: [address] [place] [id number]- Name: Madhuri Leonard RN Position: [facility] SN RN Member Role: Primary Care Nurse Name: Sherry Lopez RN Position: S RN Member Role: Primary Care Nurse Care Team Related Persons Name: TAYLOR CUEVAS Address: home [address] [place] [id number] Name: COLEEN SANCHEZ
--- OUTSIDE RECORDS SUMMARY | 2023-08-28 13:12 | XMS_ITS | Continuity of Care Document ---
Author Name Unknown Organization [facility] ter Address [address] [place] [id number]- Care Team Providers Care Blind Installer Name Role Phone Georgie FREEMAN, Ezequiel Chino Primary Care Physician Encounter [facility] [place] R [id number] Date(s): 08/10/23 - 08/11/[address] [address]- Discharge Disposition: A-D/C Home Attending Physician: Bessie Tovar MD Admitting Physician: Bessie Tovar MD Referring Physician: Not on Staff, Referring MD Allergies, Adverse Reactions, Alerts Substance Reaction Severity Status morphine anaflactic shock Active penicillins anaflactic shock Active Immunizations Given and Recorded Vaccine Date Status Refusal Reason tetanus/diphtheria/pertussis, acel(Tdap) 07/25/23 Given tetanus/diphtheria/pertussis, acel(Tdap) 1 12/21/17 Given [id number] 12y+ bivalent booster vax 11/27/22 Recorded influenza virus vaccine, inactivated 2 05/03/18 Gi adwoa influenza virus vaccine, inactivated 06/09/16 Give n influenza virus vaccine, inactivated 04/19/15 Give n pneumococcal 23-valent vaccine 06/09/16 Given pneumococcal 13-valent vaccine 04/03/15 Given 1Result Comment: [12/21/2017] [id number] 2Result Comment: [05/03/2018] [facility]-[id number] Medications Aspirin Low Dose 81 mg oral delayed release tablet 1 tablet, By Mouth, Daily, R1., # 30 tablet, 5 Refills, Maintenance, 06/05/23 20:07:00 EST, [facility], 150.5, cm, 01/16/23 10:14:00 EDT, Height Start Date: 06/05/23 Status: Ordered atorvastatin 10 mg oral tablet 1 tablet, By Mouth, Daily, R4., # 28 tablet, 5 Refills, Maintenance, 06/05/23 20:07:00 EST, [facility], 150.5, cm, 01/16/23 10:14:00 EDT, Height Start Date: 06/05/23 Status: Ordered buPROPion 200 mg/12 hours (SR) oral tablet, extended release 1 tablet, By Mouth, 2 times a day, # 60 tablet, 11 Refills, Maintenance, 02/12/23 4:32:00 EDT, [facility], 150.5, cm, 01/16/23 10:14:00 [...] capsule, 5 Refills, Maintenance, 08/06/23 15:49:00 EST, [facility], 150, cm, 07/29/23 4:29:00 EST, Height, 72, kg, 07/26/23 0:10:00 EST, Dry Weight Start Date: 08/06/23 Status: Ordered furosemide 40 mg oral tablet 1, tablet, By Mouth, Daily, ^1R1., # 30 tablet, Refills 5, Maintenance, 07/01/23 10:17:00 EST, Route to Pharmacy Electronically, [facility], 150.5, cm, 01/16/23 10:14:00 EDT, Height Start Date: 07/01/23 Status: Ordered Levemir FlexPen 100 units/mL subcutaneous solution See Instructions, INJECT 8 UNITS SUBCUTANEOUSLY (UNDER THE SKIN) EVERY MORNING ONLY IF FASTING MORNING BLOOD SUGAR >150., # 24 mL, 5 Refills, Maintenance, 02/09/23 18:26:00 EDT, [facility], 150.5, cm, 01/16/23 10:14:00 EDT, Height Start Date: 02/09/23 Status: Ordered omeprazole 20 mg oral enteric coated capsule 1 capsule, By Mouth, Daily, R1., # 28 capsule, 5 Refills, Maintenance, 06/05/23 19:40:00 EST, [facility], 150.5, cm, 01/16/23 10:14:00 EDT, Height Start Date: 06/05/23 Status: Ordered oxyCODONE 5 mg oral tablet 2.5 mg, 0.5, tablet, By Mouth, Every 6 hours, PRN, # 6 tablet, Refills 0, Tot. Refills 0, Acute 08/14/23 0:00:00 EST, as needed for pain, 08/11/23 17:25:00 EST, Print Requisition, Partial fill upon patient request if the prescription is for a schedule... 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 c o l hip pain; Reason: Other:; LLQ abdominal pain; Clinical Question(s): Hemorrhage Hematoma; Order Comment: TECHNIQUE: Spiral CT through the abdomen and pelvis with IV contrast formatted in 3 planes. 100 cc of Omnipaque 300 was administered intravenously. This study was performed without oral contrast. Weight-based protocol using automatic tube modulation was used to optimize exposure parameters. CTDIvol Body: 19.97 mGy, DLP Body: 962 mGy*cm. COMPARISON: 10/05/2020 FINDINGS: [place] Findings, Lines and Tubes: None. Visualized Chest: Lung bases are clear. No pleural effusion. The heart is normal in size. No pericardial effusion. Diaphragm: Normal. Liver: Normal. Gallbladder: No CT evidence of gallbladder pathology. Bile ducts: No biliary ductal dilation. Spleen: Normal. Pancreas: Normal. Adrenal glands: 1.8 cm left adrenal nodule similar to previous exam 10/05/2020 Kidneys and ureters: Atrophic right kidney. No hydronephrosis. Simple appearing renal cysts are noted, requiring no dedicated follow up. Bladder: Normal. Reproductive organs: A 5 cm left ovarian cystic lesion slightly increased from previous exam a 10/05/2020. Stomach, small bowel, and large bowel: Colonic diverticulosis. No evidence of obstruction. Small hiatal hernia. Appendix: Normal. Peritoneum and retroperitoneum: No ascites or pneumoperitoneum. No omental or mesenteric lesions. Lymph nodes: No enlarged lymph nodes. Blood vessels: Moderate atherosclerotic vascular calcification. No aortic aneurysm. No evidence of venous thrombosis. Abdominal and pelvic wall: Unremarkable. Bones: [Fracture which appears to primarily involve the greater trochanter with comminution. I do not see a definite fracture through the femoral neck. IMPRESSION: Left greater trochanter fracture. No discrete hematoma or significant hemorrhage appreciated. WSN: [id number] Ordering Physician: Thee Lozano Dictated By: Moses Max MD Dictated Date/Time: 08/10/23 7:49 pm Reviewed By: Moses Max MD Signed By: Moses Max MD Signed Date/Time: 08/10/23 7:49 pm Transcribed By: MIRNA Transcribed Date/Time: 08/10/23 7:34 pm Vital Signs Most recent to oldest [Reference Range]: 1 2 3 Oxygen Saturation [94-100 %] 96 % (08/11/23 4:12 PM) 97 % (08/11/23 8:56 AM) 97 % (08/11/23 6:44 AM) Pulse Rate [55-90 bpm] 63 bpm (08/11/23 4:12 PM) 94 bpm *H* (08/11/23 8:56 AM) 99 bpm *H* (08/11/23 6:44 AM) Blood Pressure [90-138/55-84 mm Hg] 142/65mm Hg *H* (08/11/23 4:12 PM) 141/71mm Hg *H* (08/11/23 8:56 AM) 136/70mm Hg (08/11/23 6:44 AM) Respiratory Rate [16-30 br/min] 16 br/min (08/11/23 4:12 PM) 16 br/min (08/11/23 8:56 AM) 18 br/min (08/11/23 6:44 AM) Temperature [96.8-100.4 DegF] 98.3 DegF (08/11/23 4:12 PM) 98.6 DegF (08/11/23 8:56 AM) 98.4 DegF (08/11/23 6:44 AM) Mode of Delivery (Oxygen) Room air (08/11/23 4:12 PM) Room air (08/11/23 8:56 AM) Room air (08/11/23 6:44 AM) Blood pressure sites Arm, right (08/10/23 11:20 PM) Arm, left (08/10/23 6:49 PM) Arm, left (08/10/23 4:02 PM) Temperature Route Oral (08/11/23 4:12 PM) Oral (08/11/23 8:56 AM) Oral (08/11/23 6:44 AM) Social History Social History Type Response Smoking Status Former smoker entered on: 09/14/17 Sex Note * Event Display: Discharge/Transfer Note Hospital Authored Date: * Gisella Salguero: PERFORM, SIGN, VERIFY Event Display: Case Management Discharge Plan Authored Date: Patient: STAS VILLANUEVA Age: 83 years Sex: Female : 1940 Associated Diagnoses: None Author: Gisella Salguero Discharge Plan Case Management Discharge Plan : Case Management Discharge Plan Data 08/11/2023 16:12 EST Discharge Level of Care at Discharge snf facility Discharge Nursing Homes/Rehab Facilities [facility] Discharge Transportation Arranged [facility] [address] [place] [id number] [phone] Mode of Transportation Arranged Chair Van Name of Agency #1 [facility] Service Categories #1 Physical Therapy, [facility] Service Comments #1 You are being discharged to [facility] for PT/SN * Bessie Tovar MD: PERFORM, SIGN, VERIFY Event Display: Patient Education Handout Authored Date: * Bessie Tovar MD: PERFORM Event Display: Patient Education Leaflets Authored Date: Leg Fracture ?? [id number] Leg Fracture You have a break (fracture) [...] wet, you can dry it with a hairspring adjuster on the cool setting. ??? You may [...] chills ?? Last Reviewed Date: 2022 ?? [id number] All rights reserved. This information is not intended as a substitute for professional medical care. Always follow your healthcare professional's instructions. ?? Patient Care team information Care Team Personnel Name: Shelbi Montaño RN Position: S RN Member Role: Primary Care Nurse Name: Oliva Stone RN Position: S RN Member Role: Primary Care Nurse Name: Shahnaz Peters RN Position: [facility] RN Member Role: Primary Care Nurse Name: Triny Cooper RN Position: S RN Member Role: Primary Care Nurse Name: Hardeep ([employer]) Marina Position: [facility] manager user interface Member Role: Computer System Specialist Name: Ezequiel Jacques MD Position: [facility] Physician - Primary Care Member Role: PCP Address: Address: [address] [place] [address]- Name: Madhuri Leonard RN Position: [facility] RN Member Role: Primary Care Nurse Name: Sherry Lopez RN Position: [facility] RN Member Role: Primary Care Nurse Care Team Related Persons Name: TAYLOR CUEVAS Address: home [address] [place] [id number] Name: COLEEN SANCHEZ
--- OUTSIDE RECORDS SUMMARY | 2023-08-28 13:13 | XMS_ITS | Continuity of Care Document ---
Author Name Unknown Organization [facility] Address [address] [place] [address]- Care Team Providers Care Casing Splitter Name Role Phone Georgie FREEMAN, Ezequiel Chino Primary Care Physician [phone] [place] [facility] [place] 06/24/23 - 07/24/23 [facility] [address] [place] [address]- Allergies, Adverse Reactions, Alerts Substance Reaction Severity Status morphine anaflactic shock Active penicillins anaflactic shock Active Immunizations Given and Recorded Vaccine Date Status Refusal Reason [id number] 12y+ bivalent booster vax 11/27/22 Recorded influenza virus vaccine, inactivated 1 05/03/18 Gi adwoa influenza virus vaccine, inactivated 06/09/16 Give n influenza virus vaccine, inactivated 04/19/15 Give n tetanus/diphtheria/pertussis, acel(Tdap) 2 12/21/17 Given pneumococcal 23-valent vaccine 06/09/16 Given pneumococcal 13-valent vaccine 04/03/15 Given 1Result Comment: [05/03/2018] [facility]-[id number] 2Result Comment: [12/21/2017] [id number] Medications Anecream Topically, 3 times a day, [...] tablet, 5 Refills, Maintenance, 06/05/23 20:07:00 EST, [facility], 150.5, cm, 01/16/23 10:14:00 EDT, Height Start Date: 06/05/23 Status: Ordered atorvastatin 10 mg oral tablet 1 tablet, By Mouth, Daily, R4., # 28 tablet, 5 Refills, Maintenance, 06/05/23 20:07:00 EST, [facility], 150.5, cm, 01/16/23 10:14:00 EDT, Height [...] tablet, 11 Refills, Maintenance, 02/12/23 4:32:00 EDT, [facility], 150.5, cm, 01/16/23 10:14:00 EDT, Height Start Date: 02/12/23 Status: Ordered Diabetic Shoes Diabetic Shoes, See Instructions, # 1 each, Refills 1, Tot. 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, 03/10/17 10:06:57, Compound Start Date: 03/10/17 Status: Ordered FLUoxetine 40 mg oral capsule 1 capsule, By Mouth, Daily, R1., # 31 capsule, 5 Refills, Maintenance, 02/10/23 6:29:00 EDT, [facility], 150.5, cm, 01/16/23 10:14:00 EDT, Height Start Date: 02/10/23 Status: Ordered FreeStyle Yasmeen 2 Monitor See Instructions, # 1 each, Maintenance, Yasmeen 2 [place] only Pt will pay soto with [employer] coupon that I faxed Use to test BS qid for E11.9 IDDM, 03/30/23 10:20:00 EDT, Supply, 150.5, cm, 01/16/23 10:14:00 EDT, Height Start Date: 03/30/23 Status: Ordered furosemide 40 mg oral tablet 1, tablet, By Mouth, Daily, ^1R1., # 30 tablet, Refills 5, Maintenance, 07/01/23 10:17:00 EST, Route to Pharmacy Electronically, [facility], 150.5, cm, 01/16/23 10:14:00 EDT, Height [...] mL, 5 Refills, Maintenance, 02/09/23 18:26:00 EDT, [facility], 150.5, cm, 01/16/23 10:14:00 EDT, Height Start Date: 02/09/23 Status: Ordered levothyroxine 0.112 mg oral tablet 1 tablet, By Mouth, Daily, # 28 tablet, 1 Refills, Maintenance, 05/18/22 15:34:00 EDT, [facility], 152.1, cm, 10/20/22 11:14:00 EDT, Height Start Date: 05/18/22 Status: [...] tablet, 5 Refills, Maintenance, 07/01/23 10:17:00 EST, [facility], [facility].5, cm, 01/16/23 10:14:00 EDT, Height Start Date: 07/01/23 Status: Ordered MetFORMIN (Eqv-Glucophage XR) 500 mg oral tablet, extended release See Instructions, TAKE 2 TABLETS BY MOUTH DAILY ^2R1, # 60 tablet, 5 Refills, Maintenance, 05/08/2314:13:00 EDT, [facility], 150.5, cm, 01/16/23 10:14:00 EDT, Height Start Date: 05/08/23 Status: Ordered Ocuvite Lutein By Mouth, Daily, 0 Refills, Maintenance, 04/03/15 13:16:39 Start Date: 04/03/15 Status: Ordered omeprazole 20 mg oral enteric coated capsule 1 capsule, By Mouth, Daily, R1., # 28 capsule, 5 Refills, Maintenance, 06/05/23 19:40:00 EST, [email or web address], 150.5, cm, 01/16/23 [...] PAIN Start Date: 09/24/21 Status: Ordered Pen Hallett, 31 G x 5 mm BD Ultra Fine III See Instructions, # 120 each, Refills 2, Tot. Refills 2, Maintenance, Use four times a day DM [id number] Office visit needed for further refills, 07/21/18 [...] capsule, 11 Refills, Maintenance, 04/23/23 4:15:00 EDT, [facility], Partial fill upon patient request if [...] Date: 08/21/22 Status: Ordered UNIFINE PNTP MIS [id number] UNIFINE PNTP MIS [id number], See Instructions, # 100 each, 1 Refills, Maintenance, DIRECTED FOUR TIMES DAILY, 05/10/22 10:46:00 EDT, 152.1, cm, 05/08/22 11:14:00 EDT, Height Start Date: 05/10/22 Status: Ordered UNIFINE PNTP MIS [id number] UNIFINE PNTP MIS [id number], See Instructions, # 100 each, 2 Refills, [...] capsule, 5 Refills, Maintenance, 07/01/23 10:15:00 EST, [facility], 150.5, cm, 01/16/23 10:14:00 EDT, Height Start Date: 07/01/23 Status: Ordered Problem List Condition Confirmation Course Effective Dates Status H ealth Status Informant Obesity (BMI 30-39.9) Confirmed Active 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
--- NOTE | 2023-08-28 14:16 | ECG_ITS ---
Test Reason : NAUSEA Blood Pressure : / mmHG Vent. Rate : 093 BPM Atrial Rate : 093 BPM P-R Int : 154 ms QRS Dur : 092 ms QT Int : 382 ms P-R-T Axes : 074 044 060 degrees QTc Int : 474 ms Normal sinus rhythm Normal ECG When compared with ECG of 10-JUL-2023 15:19, No significant change was found Referred By: Kervin Jerry Electronically Signed By:ULISES PATEL
[2023-08-28] MEDS: ondansetron HCL 4 MG/2 ML VIAL IVPUSH (14:41)
--- NOTE | 2023-08-28 15:04 | MHC.CM.PN ---
OLAF RECEIVED CALL FROM SALMA AT [facility] [phone] SHE REPORTS SHE IS ASKING THAT PT RECEIVES A MENTAL HEALTH EVAL WHILE HERE SHE SAYS THE PT HAS BEEN IN AND OUT OF HOSPITALS AND REHABS AND HAS MADE SEVERAL STATEMENTS ABOUT NOT WANTING TO BE ALIVE. 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
[2023-08-28 16:15] LABS: MANUAL DIFF FLAG NO
[2023-08-28 16:17] LABS: Basophils Absolute Auto 0.1 X10*3/uL (0.0-0.2); Basophils Percent Auto 0.6 % (0-2); Eosinophils Absolute Auto 0.4 X10*3/uL (0.0-0.4); Eosinophils Percent Auto 3.6 % (0-4); Hematocrit 37.2 % (37.0-47.0); Hemoglobin 11.5 g/dl (12.0-16.0); Imm Gran Abs Auto 0.06 X10*3/uL (0.00-0.03); Imm Gran Pct Auto 0.6 % (0.0-0.4); Lymphocytes Absolute Auto 2.4 X10*3/uL (1.2-4.9); Mean Corpuscular HGB Conc 30.9 g/dl (31.0-35.0); Mean Platelet Volume 9.8 fL (9.4-12.3); Monocytes Absolute Auto 0.7 X10*3/uL (0.1-1.2); Neutrophils Absolute Auto 6.9 x10*3/uL (2.0-8.3); Neutrophils Percent Auto 65.2 % (45-73); Platelet Count 420 X10*3/uL (160-400); Red Blood Count 4.43 X10*6/uL (4.20-5.50); Red Cell Distribution Width 15.9 % (11.0-16.0); White Blood Count 10.6 X10*3/uL (4.8-10.8)
--- NOTE | 2023-08-28 16:18 | ED.GENADULT ---
HPI - General Adult General Chief complaint: Nausea/Vomiting/Diarrhea Stated complaint: NAUSEA DIZZINESS Time Seen by Provider: 08/28/23 13:39 Source: patient Mode of arrival: ambulatory Limitations: no limitations History of Present Illness HPI narrative: 83-year-old female with past medical history of major depressive disorder known left hip fracture occurred weeks ago presents to the ED for falling up stairs and hitting head and left hip. Patient denies any nausea or vomiting. Patient denies any swelling of lower extremities or calf pain. Related Data Home Medications Medication Instructions Recorded Confirmed insulin detemir U-100 100 unit/mL 66 unit subcut BEDTIME 12/22/22 12/22/22 (3 mL) subcutaneous pen (Levemir FlexPen) metformin 500 mg tablet,extended 500 mg PO BID 12/22/22 12/22/22 release 24 hr acetaminophen 325 mg tablet 650 mg PO Q6H PRN Pain 08/28/23 aspirin 81 mg chewable tablet 81 mg PO DAILY 08/28/23 bupropion HCl 200 mg tablet,12 hr 200 mg PO BID 08/28/23 sustained-release furosemide 20 mg tablet 20 mg PO DAILY 08/28/23 insulin lispro 100 unit/mL subcut 08/28/23 subcutaneous pen (Humalog KwikPen (U-100) Insulin) lisinopril 2.5 mg tablet 2.5 mg PO DAILY 08/28/23 Previous Rx's Medication Instructions Recorded atorvastatin 10 mg tablet 10 mg PO BEDTIME #30 tabs 12/25/22 fluoxetine 40 mg capsule 40 mg PO DAILY #0 caps 12/25/22 omeprazole 20 mg capsule,delayed 20 mg PO DAILY@0630 #0 caps 12/25/22 release Allergies Allergy/AdvReac Type Severity Reaction Status Date / Time bee pollen [BEE STINGS] Allergy Unknown UNKNOWN Verified 09/13/21 12:11 morphine [MORPHINE] Allergy Unknown UNKNOWN Verified 09/13/21 12:11 Penicillins [PENICILLINS] Allergy Unknown UNKNOWN Verified 09/13/21 12:11 Review of Systems Review of Systems: Left hip pain. Fall. Yes all other systems are reviewed and are negative PMFSH Social History Social History Household Members: None Housing: Apartment Do you presently have visiting nurse or other home services: Yes Alcohol intake: never Comment: Red wrist band on. Patient Tobacco Use Status: Never used Tobacco e-Cigarette/Vaping Use: Never Used Advance Directives: No Advance Directives Information Provided: No service: No Sexual orientation: Straight/Heterosexual Physical Exam ED Vital Signs: Vital Signs - 24 hr 08/28/23 12:54 08/28/23 17:43 08/28/23 18:59 Temperature 98.3 F 97.8 F 98.3 F Pulse Rate 98 94 92 Respiratory Rate 17 20 14 Blood Pressure 179/91 H 142/70 H 144/81 H Pulse Oximetry 94 94 95 Oxygen Delivery Method Room Air Room Air Room Air 08/28/23 21:57 Temperature 98.4 F Pulse Rate 89 Respiratory Rate 14 Blood Pressure 132/74 Pulse Oximetry 93 Oxygen Delivery Method Room Air BMI result Body Mass Index 30.9 Const General: cooperative, healthy appearing, comfortable, no acute distress, well developed, alert and awake Orientation/consciousness: oriented to person, oriented to place, oriented to time and patient oriented x3 HENMT Head: Yes normal to inspection, Yes No palpable skull fracture present, Yes normocephalic and Yes atraumatic Eyes General: appearance normal, both eyes and all related structures Neck Neck: Yes normal visual inspection, Yes full ROM, Yes no lymphadenopathy, Yes no meningeal signs, Yes trachea midline, Yes supple, No anterior neck swelling and No tender Chest Chest palpation & inspection: normal inspection of the chest and normal palpation of entire chest wall Resp Effort & Inspection: normal respiratory effort and able to speak in complete sentences Auscultation: clear to auscultation bilaterally Cardio Jugular venous distension: no JVD Heart sounds: S1 normal heart sound present and S2 normal heart sound present GI Inspection: Yes normal to inspection Palpation (GI): Soft to palpation, not firm, nontender, no guarding and not rigid General: Yes no CVA tenderness Back/Spine/Pelvis Back: no CVA tenderness and No back tenderness Skin General skin exam: no rashes or lesions noted, elasticity normal and turgor normal Neuro General: oriented to person, oriented to place, oriented to time, patient oriented x3, gait normal, tone normal, moves all extremities, Normal light touch and pain sensation, no meningeal signs, no focal motor deficits, CN's II-XI intact bilaterally and normal sensation to monofilament Extrem General: Yes normal to inspection, Yes full ROM and Yes capillary refill normal Upper/lower leg/hip images: 1. Tenderness on palpation. Negative for crepitus, ecchymosis, or deformity. Whole extremity motor/neuro/vascular exam intact. Patient afraid to walk due to pain. Negative for signs of compartment syndrome, DVT, arterial occlusion, or dislocation. Psych Appearance: grossly normal, well kempt and not disheveled Course Reevaluation(s) Reevaluation #1: Received sign-out with the patient in stable condition pending plain film x-ray as requested by ortho. Patient likely to be admitted. Time: 18:12 Reevaluation #2: 8:00 p.m. message to [facility]. informed of x-ray performed. Her recommendations are limited abduction and partial weightbearing as tolerated. No surgical intervention at this time. Reviewed all labs, no acute process. Urinalysis With trace leukocytes, negative nitrites. Hold on treatment until urine culture. Patient confirms that she is not at rehab at this time and was recently discharged home. Patient reports she does have some home services. Given the patient's hip fracture and concern for her mobility as well as family concerned for decision-making, patient will be seen by the care team as well as further evaluated by physical therapy and social work for safe disposition. This was reviewed with the patient who agrees with this plan. Time: 20:40 Reevaluation #3: August 28, 2023, 9:30 p.m. patient seen by Aysha from case management. Patient apparently has a history of geriatric psych admission in December of 2022. In addition she has had a history of suicidal ideation and apparently today told her elder care staff that she wanted to . Patient will remain for further evaluation by the care team and physical therapy. Again, patient may weightbear as tolerated and limited abduction. August 29, 2023, 2:00 a.m. patient resting comfortably at this time. Awaiting further evaluation by care team physical therapy. Medications Administered Discontinued Medications Generic Name Dose Route Start Last Admin Trade Name Freq PRN Reason Stop Dose Admin Ondansetron HCl 4 mg 08/28/23 14:35 08/28/23 14:41 Ondansetron Hcl 4 Mg/2 Ml Vial IVPUSH 08/28/23 14:36 4 mg ONCE ONE Administration Medical Decision Making Medical Decision Making MDM Narrative: 83-year-old female history of major depressive disorder presents to the ED falling up the stairs and trouble bearing weight on left lower extremity. Patient claims to have no left hip fracture but never follow-up with orthopedic surgeon. Patient initially wanted to leave against medical advice but was agreeable to wait to be evaluated. [employer] [facility] contacted our pillowcase cutter Razia who states then concern patient not making right decisions for herself and do not want to live and recommend mental health evaluation. Care team consult placed EKG labs placed. Abdominal CT scan shows left community hip fracture. Discussed case with [facility] Puri patient recommend patient get a hip x-ray and for her to be contacted with the results. 5:48pm: signed out to ANUP pineda Differential Diagnosis Differential Diagnoses: The differential diagnosis associated with the presentation includes (Brain bleed, skull fracture, hip fracture) Admission/Observation Consideration of admission/observation: Escalation of care including admission/observation considered Consult Healthcare Provider Management of the patient was discussed with: Hospitalist (ANUP Cedeño) Lab Data MDM Lab Attestation statement: I reviewed the patient's lab results. 08/28/23 16:09 08/28/23 16:09 Labs: Lab Results 08/28/23 08/28/23 08/28/23 Range/Units 16:09 19:07 19:10 WBC 10.6 (4.8-10.8) X10*3/uL RBC 4.43 (4.20-5.50) X10*6/uL Hgb 11.5 L (12.0-16.0) g/dl Hct 37.2 (37.0-47.0) % MCV 84.0 (80.0-98.0) fL MCH 26.0 L (27.0-33.0) pg MCHC 30.9 L (31.0-35.0) g/dl RDW 15.9 (11.0-16.0) % Plt Count 420 H D (160-400) X10*3/uL MPV 9.8 (9.4-12.3) fL Immature Gran % (Auto) 0.6 H (0.0-0.4) % Neut % (Auto) 65.2 (45-73) % Lymph % (Auto) 23.0 (20-40) % [place]enton % (Auto) 7.0 (2-11) % Eos % (Auto) 3.6 (0-4) % Baso % (Auto) 0.6 (0-2) % Lymph # (Auto) 2.4 (1.2-4.9) X10*3/uL [place]enton # (Auto) 0.7 (0.1-1.2) X10*3/uL Eos # (Auto) 0.4 (0.0-0.4) X10*3/uL Baso # (Auto) 0.1 (0.0-0.2) X10*3/uL Abs Immat Gran (auto) 0.06 H (0.00-0.03) X10*3/uL Absolute Neuts (auto) 6.9 (2.0-8.3) x10*3/uL Absolute Nucleated RBC 0.000 (0.0-0.012) X10*3/uL Nucleated RBC % (auto) 0.0 (0.0-0.2) /100WBC PT 11.4 (11.1-13.3) SEC INR 0.9 (0.9-1.1) APTT 23.3 L (26.0-36.8) SEC Sodium 137 (135-145) mmol/L Potassium 4.3 (3.3-5.1) mmol/L Chloride 104 (96-108) mmol/L Carbon Dioxide 22 (22-29) mmol/L Anion Gap 15 (12-20) BUN 14 (9-16) mg/dL Creatinine 0.87 (0.5-1.4) mg/dL Estim Creat Clear Calc 44.8 Estimated GFR > 60 Random Glucose 160 H (60-115) mg/dL Calcium 9.4 D (8.4-10.2) mg/dL Total Bilirubin 0.2 (0.0-1.0) mg/dL AST 20 (5-31) U/L ALT 15 (0-31) U/L Alkaline Phosphatase 105 (39-117) U/L Troponin I High Sens < 2.7 (<3.5-17.0) ng/L Total Protein 6.8 (6.5-8.0) g/dL Albumin 3.4 L (3.5-5.0) g/dL Urine Color Yellow Urine Appearance Clear Urine pH 7.0 (5.0-9.0) Ur Specific [place] 1.015 (1.005-1.025) Urine Protein Trace (Neg-Trace) mg/dL Urine Glucose (UA) Negative (Negative) mg/dL Urine Ketones Negative (Negative) mg/dL Urine Blood Negative (Negative) Urine Nitrite Negative (Negative) Ur Leukocyte Esterase Trace H (Negative) Urine RBC 0-2 (0-2) /HPF Urine WBC 0-5 (0-5) /HPF Ur Squamous Epith Cells 6-10 (0-2) /HPF Urine Bacteria 1+ (None Seen) Hyaline Casts 0-2 (0-2) /LPF Urine Opiates Screen Not Detected (Not Detect) Urine Fentanyl Screen Not Detected (Not Detect) Ur Barbiturates Screen Not Detected (Not Detect) Ur Phencyclidine Scrn Not Detected (Not Detect) Ur Amphetamines Screen Not Detected (Not Detect) U Benzodiazepines Scrn Not Detected (Not Detect) Urine Cocaine Screen Not Detected (Not Detect) U Marijuana (THC) Screen Not Detected (Not Detect) Ethyl Alcohol < 10 mg/dL Independent Interpretation I performed an independent interpretation of an: EKG (NOrmal SInus rhyth or normal EKG. negative stemi) and CT Scan Radiology Impression Discussion of test interpretation with radiology: I have reviewed the radiologist's reading. Radiologist Impression: [place] [id number] XRay Report Signed Patient: Vira Jules MR#: [id number] : 1940 Acct:[id number] Age/Sex: 83 / F ADM Date: 08/28/23 Loc: .ED Attending Dr: Ordering Physician: Kervin Jerry Date of Service: 08/28/23 Procedure(s): XR hip LT w PEL1V Accession Number(s): [id number] cc: Kervin Jerry; Physician,None ~ EXAMINATION: XR HIP, LEFT CLINICAL INFORMATION: Comminuted fracture left hip on CT. COMPARISON: CT abdomen pelvis performed earlier today. TECHNIQUE: Two views of the left hip. FINDINGS: There is a comminuted intertrochanteric fracture better visualized on CT. There is an avulsion fracture fragment greater trochanter. There is no dislocation. There is diffuse osteopenia. XR/XR hip LT w PEL1V IMPRESSION: Comminuted intertrochanteric fracture with avulsion fracture fragment greater trochanter. There is no dislocation. There is diffuse osteopenia. The fracture is better visualized on the CT abdomen exam. Dictated By: Ramu Shankar MD Signed By: <Electronically signed by Ramu Shankar MD in OV> 08/28/232037 DD/ 40 TD/TT: Coffee Machine Technician: [facility] External Record Review External record reviewed: Other ([facility]ior visits) Discharge Plan Discharge Clinical Impression: MDD (major depressive disorder), recurrent episode, moderate, Hip fracture Patient Disposition: Still a Patient Prescriptions: No Action aspirin 81 mg Tablet,Chewable 81 mg PO DAILY furosemide 20 mg tablet 20 mg PO DAILY lisinopril 2.5 mg tablet 2.5 mg PO DAILY bupropion HCl 200 mg tablet sustained-release 12 hr 200 mg PO BID acetaminophen 325 mg Tablet 650 mg PO Q6H PRN (Reason: Pain) insulin lispro [Humalog KwikPen Insulin] 100 unit/mL insulin pen subcut metformin 500 mg tablet extended release 24 hr 500 mg PO BID Levemir FlexPen 100 unit/mL (3 mL) insulin pen 66 unit subcut BEDTIME fluoxetine 40 mg capsule 40 mg PO DAILY Qty: 0 0RF omeprazole 20 mg Capsule,Delayed Release(Dr/Ec) 20 mg PO DAILY@0630 Qty: 0 0RF atorvastatin 10 mg Tablet 10 mg PO BEDTIME Qty: 30 0RF
[2023-08-28 16:22] LABS: INTERNATIONAL NORM RATIO 0.9 (0.9-1.1); Prothrombin Time 11.4 SEC (11.1-13.3)
[2023-08-28 16:29] LABS: Partial Thromboplastin Time 23.3 SEC (26.0-36.8)
[2023-08-28 16:32] LABS: Alanine Aminotransferase 15 U/L (0-31); Albumin Level 3.4 g/dL (3.5-5.0); Alkaline Phosphatase 105 U/L (39-117); Anion Gap 15 (12-20); Aspartate Amino Transferase 20 U/L (5-31); Bilirubin Total 0.2 mg/dL (0.0-1.0); Blood Urea Nitrogen 14 mg/dL (9-16); Calcium 9.4 mg/dL (8.4-10.2); Carbon Dioxide 22 mmol/L (22-29); Chloride 104 mmol/L (96-108); Creatinine Clr Calc Pharmacy 44.8; Estimated Glomerular Filt Rate > 60; Glucose Random 160 mg/dL (60-115); Potassium 4.3 mmol/L (3.3-5.1); Sodium 137 mmol/L (135-145); Total Protein 6.8 g/dL (6.5-8.0)
[2023-08-28 16:42] LABS: Troponin-I High Sensitivity < 2.7 ng/L (<3.5-17.0)
[2023-08-28 17:43] VITALS: BP 142/70; PULSE 94; RESP 20; TEMP 36.6; O2SAT 94
[2023-08-28 18:59] VITALS: BP 144/81; PULSE 92; RESP 14; TEMP 36.8; O2SAT 95
[2023-08-28 19:17] LABS: Ethanol < 10 mg/dL
[2023-08-28 19:18] LABS: Appearance Urine Clear; Color Urine Yellow; Glucose Urine UA Negative (Negative); Leukocyte Esterase Urine Trace (Negative); Nitrite Urine Negative (Negative); Specific Gravity - Urine 1.015 (1.005-1.025); UMIC TRIGGER UACC YES; Urine Blood Negative (Negative); Urine Ketones Negative (Negative); Urine Protein Trace mg/dL (Neg-Trace)
[2023-08-28 19:25] LABS: Amphetamine Screen Urine Not Detected (Not Detect); Barbiturates, Urine Not Detected (Not Detect); Benzodiazepines Screen Urine Not Detected (Not Detect); Cannabinoid Screen Urine Not Detected (Not Detect); Cocaine Screen Urine Not Detected (Not Detect); Fentanyl, urine Not Detected (Not Detect); Opiate Screen Urine Not Detected (Not Detect); Phencyclidine Screen Urine Not Detected (Not Detect)
[2023-08-28 19:33] LABS: Bacteria Urine 1+ (None Seen); Hyaline Casts Urine 0-2 /LPF (0-2); WBC Urine 0-5 /HPF (0-5)
[2023-08-28 19:34] LABS: RBC Urine 0-2 /HPF (0-2)
[2023-08-28 21:57] VITALS: BP 132/74; PULSE 89; RESP 14; TEMP 36.9; O2SAT 93
--- NOTE | 2023-08-28 22:38 | MHC.CM.ED ---
Received CM assessment from [facility]. PT and CARE team evaluation are pending. Pt is A&Ox3. Does remember that she was recently hospitalized and went to rehab, but doesn't remember when and where. Thinks in July. Might have qualifying stay for STR, although patient recently left STR, unsure where. May need records from [facility]. Pt has L hip fx ? in past several weeks. C/O L hip/leg pain. Lives in elderly housing, alone. Both children have passed. Has a grandson, Dustin Jules ([phone]). Does not have a HCP. Is . All family has passed; her mother recently at 103 years old. Pt uses a walker and a cane. Has services with [facility]. Per previous CM, Anna from [facility] has concerns about patient's mental health. Making statements that she wants to . Questions decision making. Pt had past services with [facility]. Sees a provider at [facility] at the [facility] in [place] Unsure of name. Pt was admitted to [facility] in 2022 and was referred to Judi Aguirre NP for psych services.([phone]). CM will follow and assist with discharge planning when cleared by CARE team. No referrals placed at this time.
--- NOTE | 2023-08-29 00:10 | MHC.CARE ---
At this time ,Pt. sleeping . She will be assessed in the morning. CARE team will also reach out to collaterals in morning as well.
[2023-08-29 06:07] VITALS: BP 145/93; PULSE 101; RESP 16; TEMP 36.5; O2SAT 97
--- NOTE | 2023-08-29 06:27 | PC.NURSE ---
Pt alert and oriented X4. Uneventful night, pt sleeping most of night, care team will evaluate today. Pt ambulated to bathroom with assist of RN and tech.
[2023-08-29 07:20] VITALS: BP 153/82; PULSE 89; RESP 18; TEMP 36.6; O2SAT 94
[2023-08-29 08:18] VITALS: BP 140/87; PULSE 98; RESP 18; TEMP 36.7; O2SAT 97
[2023-08-29 08:30] VITALS: BP 140/87; PULSE 109; O2SAT 96
--- NOTE | 2023-08-29 08:30 | PC.NURSE ---
Assumed care of this pt at 0700. Pt awake eating breakfast, denies pain, pleasant mood.
--- NOTE | 2023-08-29 08:40 | PC.NURSE ---
Pt was assessed by Physical Therapist. Pt was seen walking in [place] using walker and Physical Therapist next to her. She denies pain, vss.
[2023-08-29 12:57] LABS: COVID-19 Test Negative (Negative); IDNOW Serial# 58CA691E
[2023-08-29 18:12] VITALS: BP 142/76; PULSE 88; RESP 16; TEMP 36.9; O2SAT 98
--- NOTE | 2023-08-29 18:13 | MHC.EDTECH ---
PATIENT REFUSED DINNER ,STATED NOT HUNGRY ,DID DRINK ELVIS COLE .
--- NOTE | 2023-08-29 19:07 | MHC.EDTECH ---
Marilee called to check on pt at 1907
[2023-08-30 02:38] VITALS: BP 146/77; PULSE 89; RESP 18; TEMP 36.8; O2SAT 93
[2023-08-30 05:39] VITALS: BP 153/80; PULSE 92; RESP 16; TEMP 36.9; O2SAT 96
--- NOTE | 2023-08-30 07:52 | PC.NURSE ---
this RN assumed care. Pt is alert and answering questions, breathing even and unlabored. pt denies any SOB or pain, keeps saying i am ready to get out of this place . pt calm and cooperative at this time.
--- NOTE | 2023-08-30 08:08 | PC.NURSE ---
Pharmacy called for med rec
--- NOTE | 2023-08-30 09:17 | MHC.CM.ED ---
Patient remains in ER. Per Care Team, psych consult ordered. CM consult will be completed once seen by Psych. Continue to monitor for d/c needs.
--- NOTE | 2023-08-30 09:30 | PC.NURSE ---
patient a&ox3, ambulating independently with steady gait, pt stating I want to go home, I dont need to be here, I am just going to leave this nurse redirected patient and spoke with provider-Meron- pt is to have psych capacity exam to determine if patient is fit to live home on her own. Currently patient has no c/o pain or discomfort, call rueda within reach, will continue to monitor.
--- NOTE | 2023-08-30 09:44 | PHA.MEDREC ---
Pharmacy Consult ? Medication Reconciliation Pharmacy has completed the medication reconciliation. [employer] Remi spoke to patient and confirmed most of medication list. Patient was unsure about the dose of furosemide and levemir ( 6-8 units once a day and someone administered it to me ). I called [facility] to verify medication list. Pharmacist Sonny said that they filled furosemide 20 mg daily and levemir flexpen 66 units at night until all insulin orders were put on hold on 08/05/23 by Tiffany (pharmacist at [facility]). I then called [facility] in [place], [place] to check on the insulin dose and spoke to Saadia. She said patient was hypoglycemic so they hold off on the insulin, had her only on sliding scale, tested her sugar 4x/day and discharged her with only metformin.
--- NOTE | 2023-08-30 11:00 | PC.NURSE ---
patient attempting to elope, security was called to assist as provider was wanting the patient to see psychiatry, pt was changed over into [facility] attire.
--- NOTE | 2023-08-30 11:34 | PM.PSYCN ---
History of Present Illness Date of Service: 08/30/23 Chief Complaint: NAUSEA DIZZINESS Requesting physician: Meron Shabazz Discussed with referring provider: Yes Sources of Information: patient interviewed and chart reviewed HPI Narrative: Vira is an 83-year-old white, , mother of 2 who were . She lives alone and has done so for many years and has been able to take care of her daily needs. About 3 weeks ago she had a fall and sustained left hip injury and was in rehab and is mobile at this time. She was brought to the emergency room out of some concerns from a neighbor. She is able to give adequate information. She denies any substance use or abuse. She denies any suicidal ideations. No previous psychiatric history. Past Psychiatric History: Inpatient: none OP: none Past trials: wellbutrin, prozac Medical Evaluation Reviewed: Yes (Recent hip fracture. She is mobile) Review of Systems Review of Systems Recent left hip fracture but is mobile Yes all other systems are reviewed and are negative PMFSH Social History: Vira is 1 of 3 siblings. Her 2 siblings are . She lives alone after moving here from [place] to be near her grandchild. She was in [place] and moved here 3 or 4 years ago. She was once and for many years. She has worked in the past but is on social security now, receiving over 2000 dollars a month. She denies any previous psychiatric treatment Substance History: None Trauma History: None Diagnostics Vital Signs (24Hr): Vital Signs - 24 hr 08/29/23 18:12 08/30/23 02:38 08/30/23 05:39 Temperature 98.4 F 98.2 F 98.5 F Pulse Rate 88 89 92 Respiratory Rate 16 18 16 Blood Pressure 142/76 H 146/77 H 153/80 H Pulse Oximetry 98 93 96 Oxygen Delivery Method Room Air Room Air Room Air BMI result Body Mass Index 30.9 Labs 08/28/23 16:09 08/28/23 16:09 Labs: Laboratory Results - last 48 hr 08/28/23 08/28/23 08/28/23 16:09 19:07 19:10 WBC 10.6 RBC 4.43 Hgb 11.5 L Hct 37.2 MCV 84.0 MCH 26.0 L MCHC 30.9 L RDW 15.9 Plt Count 420 H D MPV 9.8 Immature Gran % (Auto) 0.6 H Neut % (Auto) 65.2 Lymph % (Auto) 23.0 [place] % (Auto) 7.0 Eos % (Auto) 3.6 Baso % (Auto) 0.6 Lymph # (Auto) 2.4 [place] # (Auto) 0.7 Eos # (Auto) 0.4 Baso # (Auto) 0.1 Abs Immat Gran (auto) 0.06 H Absolute Neuts (auto) 6.9 Absolute Nucleated RBC 0.000 Nucleated RBC % (auto) 0.0 PT 11.4 INR 0.9 APTT 23.3 L Sodium 137 Potassium 4.3 Chloride 104 Carbon Dioxide 22 Anion Gap 15 BUN 14 Creatinine 0.87 Estim Creat Clear Calc 44.8 Estimated GFR > 60 Random Glucose 160 H Calcium 9.4 D Total Bilirubin 0.2 AST 20 ALT 15 Alkaline Phosphatase 105 Troponin I High Sens < 2.7 Total Protein 6.8 Albumin 3.4 L Urine Color Yellow Urine Appearance Clear Urine pH 7.0 Ur Specific [place] 1.015 Urine Protein Trace Urine Glucose (UA) Negative Urine Ketones Negative Urine Blood Negative Urine Nitrite Negative Ur Leukocyte Esterase Trace H Urine RBC 0-2 Urine WBC 0-5 Ur Squamous Epith Cells 6-10 Urine Bacteria 1+ Hyaline Casts 0-2 Urine Opiates Screen Not Detected Urine Fentanyl Screen Not Detected Ur Barbiturates Screen Not Detected Ur Phencyclidine Scrn Not Detected Ur Amphetamines Screen Not Detected U Benzodiazepines Scrn Not Detected Urine Cocaine Screen Not Detected U Marijuana (THC) Screen Not Detected Ethyl Alcohol < 10 COVID-19 (BECCA) COVID-19 Clin Com 08/29/23 12:32 WBC RBC Hgb Hct MCV MCH MCHC RDW Plt Count MPV Immature Gran % (Auto) Neut % (Auto) Lymph % (Auto) [place] % (Auto) Eos % (Auto) Baso % (Auto) Lymph # (Auto) [place] # (Auto) Eos # (Auto) Baso # (Auto) Abs Immat Gran (auto) Absolute Neuts (auto) Absolute Nucleated RBC Nucleated RBC % (auto) PT INR APTT Sodium Potassium Chloride Carbon Dioxide Anion Gap BUN Creatinine Estim Creat Clear Calc Estimated GFR Random Glucose Calcium Total Bilirubin AST ALT Alkaline Phosphatase Troponin I High Sens Total Protein Albumin Urine Color Urine Appearance Urine pH Ur Specific [place] Urine Protein Urine Glucose (UA) Urine Ketones Urine Blood Urine Nitrite Ur Leukocyte Esterase Urine RBC Urine WBC Ur Squamous Epith Cells Urine Bacteria Hyaline Casts Urine Opiates Screen Urine Fentanyl Screen Ur Barbiturates Screen Ur Phencyclidine Scrn Ur Amphetamines Screen U Benzodiazepines Scrn Urine Cocaine Screen U Marijuana (THC) Screen Ethyl Alcohol COVID-19 (BECCA) Negative COVID-19 Clin Com See Note Imaging Radiology Impressions: ITS Impressions Abdomen/Pelvis CT 08/28/23 15:25 IMPRESSION: 1. Comminuted fracture of left hip with avulsion off the greater trochanter. 2. Groundglass opacity nodule in the right middle lobe and 0.2 cm nodule in the right upper lobe. 3. Stable left adrenal gland adenoma. 4. Stable left adnexal mass. 5. Diverticulosis without diverticulitis. Cervical Spine CT 08/28/23 15:25 IMPRESSION: CT HEAD: 1. No acute intracranial finding. 2. Stable calcified meningioma in the right occipitotemporal region. 3. Changes of microangiopathy and global volume loss. CT CERVICAL SPINE: 1. No cervical spine fracture or traumatic malalignment identified. 2. Multilevel degenerative changes with grade 1 anterolisthesis at the level of C7-T1. Chest CT 08/28/23 15:25 IMPRESSION: 1. Comminuted fracture of left hip with avulsion off the greater trochanter. 2. Groundglass opacity nodule in the right middle lobe and 0.2 cm nodule in the right upper lobe. 3. Stable left adrenal gland adenoma. 4. Stable left adnexal mass. 5. Diverticulosis without diverticulitis. Head CT 08/28/23 15:25 IMPRESSION: CT HEAD: 1. No acute intracranial finding. 2. Stable calcified meningioma in the right occipitotemporal region. 3. Changes of microangiopathy and global volume loss. CT CERVICAL SPINE: 1. No cervical spine fracture or traumatic malalignment identified. 2. Multilevel degenerative changes with grade 1 anterolisthesis at the level of C7-T1. Hip/Pelvis X-Ray 08/28/23 18:41 IMPRESSION: Comminuted intertrochanteric fracture with avulsion fracture fragment greater trochanter. There is no dislocation. There is diffuse osteopenia. The fracture is better visualized on the CT abdomen exam. Mental Status Exam Mental Status Exam Narrative: Mallory was evaluated today in the emergency room. She is alert, oriented and pleasant and cooperative. Normal speech. Good eye contact. Affect is appropriate and tearful around being here only. She denies any symptoms of depression or anxiety. No signs of psychosis. She is alert and oriented X 3. She is able to remember 2/3 objects in 5 minutes and able to pick the 3rd 1 out of a list of 5 objects. Her thought processes are goal-directed and logical. Judgment is intact Medications Medications Current Medications Insulin Human Lispro (Insulin Lispro 100 Unit/Ml 3 Ml Vial) 0 unit SUBCUT QIDACHS SHIREEN; Protocol Allergies Allergies Allergy/AdvReac Type Severity Reaction Status Date / Time bee pollen [BEE STINGS] Allergy Unknown UNKNOWN Verified 09/13/21 12:11 morphine [MORPHINE] Allergy Unknown UNKNOWN Verified 09/13/21 12:11 Penicillins [PENICILLINS] Allergy Unknown UNKNOWN Verified 09/13/21 12:11 Assessment & Plan Assessment & Plan (1) MDD (major depressive disorder), recurrent episode, moderate: Status: Acute Code(s): F33.1 - Major depressive disorder, recurrent, moderate Plan Based on my evaluation today Vira has capacity to make informed decisions about her care. No psychiatric hospitalization is indicated at this time. Thank you for the consultation Total time managing care of this patient today _40___ minutes.
--- NOTE | 2023-08-30 11:45 | PC.NURSE ---
psychiatry was at bedside speaking with the patient- the doctor feels the patient does not need to be admitted and is competent- the provider was notified and the patient can be discharged shortly.
--- NOTE | 2023-08-30 12:25 | PC.NURSE ---
pt had a lyft booked by case management to go home, pt was ambulating with this nurse- ambulating with a steady gait, upon getting to the double doors by triage to discharge patient slipped despite the red socks and fell to the floor striking her head on the floor causing a lac rt eyebrow. providers were called to the door to evaluate- pt to come back into her room and will have a head CT and have the lac assessed.
[2023-08-30 12:37] VITALS: BP 176/76; PULSE 112; RESP 20; TEMP 36.6; O2SAT 97
--- NOTE | 2023-08-30 13:07 | PC.NURSE ---
pt return from CT scan
[2023-08-30] MEDS: Diphth,Pertus(ACell),Tet Adult 0.5 ML SYRINGE IM (13:12)
[2023-08-30 14:00] VITALS: BP 161/78; PULSE 96; RESP 18; TEMP 36.7; O2SAT 96
--- NOTE | 2023-08-30 14:05 | MHC.CM.ED ---
Received notification patient was cleared by psych and could be d/c'd home. Patient is active with [facility]. DANIA made aware. Josiah booked. Patient, Leanna Arnett and Meron WILSON aware. Continue to monitor for d/c needs.
--- NOTE | 2023-08-30 14:11 | PC.NURSE ---
patient a&ox3, vss, pt ambulated with steady gait, pt placed in wheelchair to again discharge- case management obtained lyft for patient.
== END 2023-08-30 14:13 | disposition home or self-care (01) ==
PROVIDERS: Physician Assistant; Registered Nurse Emergency; Emergency Provider Emergency Medicine
DX: F33.1 Major depressive disorder, recurrent, moderate (principal); S72.092D Other fracture of head and neck of left femur, subsequent encounter for closed fracture with routine healing; W17.89XD Other fall from one level to another, subsequent encounter; S01.111A Laceration without foreign body of right eyelid and periocular area, initial encounter; W01.198A Fall on same level from slipping, tripping and stumbling with subsequent striking against other object, initial encounter; M54.2 Cervicalgia; Y93.89 Activity, other specified; Y92.232 Corridor of hospital as the place of occurrence of the external cause; Y99.9 Unspecified external cause status; R51.9 Headache, unspecified; R00.0 Tachycardia, unspecified; M25.552 Pain in left hip; R29.6 Repeated falls; Z91.81 History of falling; Z79.4 Long term (current) use of insulin; Z79.84 Long term (current) use of oral hypoglycemic drugs; Z79.82 Long term (current) use of aspirin; Z79.02 Long term (current) use of antithrombotics/antiplatelets; Z79.899 Other long term (current) drug therapy; Z23 Encounter for immunization; Z11.52 Encounter for screening for COVID-19
CPT/HCPCS: 12011; 36415; 70450; 71250; 72125; 73502; 74176; 80053; 80307; 81001; 84484; 85025; 85610; 85730; 87635; 90471; 90715; 93005; 96374; 97161; 99285; J2405; S9485

== ENCOUNTER → 2023-08-28 13:06 | Outpatient (BNV) | payer MEDICARE, SELFPAY | PROVIDERS: Emergency Provider Emergency Medicine; Visit Provider Psychiatry & Neurology Psychiatry | DX: F33.1 Major depressive disorder, recurrent, moderate (principal) | CPT/HCPCS: 99282 ==

== ENCOUNTER → 2023-08-28 14:16 | Outpatient (BNV) | payer MEDICARE, SELFPAY | PROVIDERS: Emergency Provider Emergency Medicine; Visit Provider Internal Medicine | DX: R11.0 Nausea (principal) | CPT/HCPCS: 93010 ==

== ENCOUNTER 2023-09-30 20:53 | Emergency (ER) | payer MEDICARE, SELFPAY ==
--- NOTE | 2023-09-30 21:14 | ED_ITS ---
HPI - General Adult General Chief complaint: Headache Stated complaint: HYPERGLYCEMIA BGL OF *388 Time Seen by Provider: 09/30/23 21:12 Source: patient Mode of arrival: ambulatory Limitations: no limitations History of Present Illness HPI narrative: Patient history of type 2 diabetes insulin dependent used to be on sliding scale of insulin along with Levemir and metformin had left hip intertrochanteric fracture in 08/11 no surgery done and patient getting physical therapy at home able to ambulate for last few weeks since sliding scale of insulin. And dose of Levemir increased patient has been having blood sugar in normal range less than 200 today in the evening she had [place] and fruits and checked her blood sugar was more than 400 , EMS red blood sugar of 388, otherwise patient feeling now been drinking enough fluids on arrival patient's blood sugar was 178 received 500 cc fluid by EMS Related Data Home Medications Medication Instructions Recorded Confirmed insulin detemir U-100 100 unit/mL 66 unit subcut BEDTIME 12/22/22 12/22/22 (3 mL) subcutaneous pen (Levemir FlexPen) metformin 500 mg tablet,extended 500 mg PO BID 12/22/22 08/30/23 release 24 hr acetaminophen 325 mg tablet 650 mg PO Q6H PRN Pain 08/28/23 08/30/23 aspirin 81 mg chewable tablet 81 mg PO DAILY 08/28/23 08/30/23 bupropion HCl 200 mg tablet,12 hr 200 mg PO BID 08/28/23 08/30/23 sustained-release furosemide 20 mg tablet 20 mg PO DAILY 08/28/23 08/30/23 lisinopril 2.5 mg tablet 2.5 mg PO DAILY 08/28/23 08/30/23 tramadol 50 mg tablet 50 mg PO Q6H PRN Pain 08/30/23 08/30/23 Previous Rx's Medication Instructions Recorded atorvastatin 10 mg tablet 10 mg PO BEDTIME #30 tabs 12/25/22 fluoxetine 40 mg capsule 40 mg PO DAILY #0 caps 12/25/22 omeprazole 20 mg capsule,delayed 20 mg PO DAILY@0630 #0 caps 12/25/22 release Allergies Allergy/AdvReac Type Severity Reaction Status Date / Time bee pollen [BEE STINGS] Allergy Unknown UNKNOWN Verified 09/30/23 21:32 morphine [MORPHINE] Allergy Unknown UNKNOWN Verified 09/30/23 21:32 Penicillins [PENICILLINS] Allergy Unknown UNKNOWN Verified 09/30/23 21:32 Review of Systems 2 Review of Systems: Yes all other systems are reviewed and are negative [facility] Social History Social History Household Members: None Housing: Apartment Do you presently have visiting nurse or other home services: Yes Alcohol intake: never Comment: Red wrist band on. Patient Tobacco Use Status: Never used Tobacco e-Cigarette/Vaping Use: Never Used Advance Directives: No Advance Directives Information Provided: No service: No Sexual orientation: Straight/Heterosexual Physical Exam ED Vital Signs: Vital Signs - 24 hr 09/30/23 21:35 Temperature 98.1 F Pulse Rate 91 Respiratory Rate 16 Blood Pressure 130/68 Pulse Oximetry 97 Oxygen Delivery Method Room Air BMI result Body Mass Index 24.1 Appearance: Alert. Oriented X3. No acute distress. Eyes: PERRLA, No Nystagmus ENT: Pharynx normal. Oral Mucosa moist Neck: Normal inspection. Neck supple. CVS: Normal heart rate and rhythm. Pulses normal. Respiratory: No respiratory distress. Equal air entry bilateral, no wheezing/rales/rhonchi Abdomen: Soft and nontender. Bowel sounds are present, no mass palpable, no CVA tenderness Skin: Skin warm and dry. Normal skin color. Normal skin turgor. Extremities: No lower extremity edema. No calf tenderness good range of movement Neuro: Oriented X 3. No motor deficit. No sensory deficit.No cerebellar signs , cranial nerves II-XII intact Medications Administered Discontinued Medications Generic Name Dose Route Start Last Admin Trade Name Freq PRN Reason Stop Dose Admin Sodium Chloride 1,000 mls @ 999 mls/hr 09/30/23 21:28 09/30/23 21:41 Ns IV 09/30/23 22:28 999 mls/hr .Q1H1M ONE Administration Medical Decision Making Medical Decision Making [facility] Narrative: Patient's blood sugar improved after IV fluids maida 155 feeling much better now will discharge patient home ambulatory in the ED Differential Diagnosis Differential Diagnoses: The differential diagnosis associated with the presentation includes Lab Data [facility] Lab Attestation statement: I reviewed the patient's lab results. 09/30/23 21:56 09/30/23 21:56 Labs: Lab Results 09/30/23 09/30/23 09/30/23 Range/Units 21:31 21:56 22:30 WBC 11.3 H (4.8-10.8) X10*3/uL RBC 4.03 L (4.20-5.50) X10*6/uL Hgb 10.5 L (12.0-16.0) g/dl Hct 33.7 L (37.0-47.0) % MCV 83.6 (80.0-98.0) fL MCH 26.1 L (27.0-33.0) pg MCHC 31.2 (31.0-35.0) g/dl RDW 15.3 (11.0-16.0) % Plt Count 491 H (160-400) X10*3/uL MPV 9.6 (9.4-12.3) fL Immature Gran % (Auto) 0.5 H (0.0-0.4) % Neut % (Auto) 61.9 (45-73) % Lymph % (Auto) 25.6 (20-40) % [place] % (Auto) 8.3 (2-11) % Eos % (Auto) 3.1 (0-4) % Baso % (Auto) 0.6 (0-2) % Lymph # (Auto) 2.9 (1.2-4.9) X10*3/uL [place] # (Auto) 0.9 (0.1-1.2) X10*3/uL Eos # (Auto) 0.4 (0.0-0.4) X10*3/uL Baso # (Auto) 0.1 (0.0-0.2) X10*3/uL Abs Immat Gran (auto) 0.06 H (0.00-0.03) X10*3/uL Absolute Neuts (auto) 7.0 (2.0-8.3) x10*3/uL Absolute Nucleated RBC 0.000 (0.0-0.012) X10*3/uL Nucleated RBC % (auto) 0.0 (0.0-0.2) /100WBC Sodium 139 (135-145) mmol/L Potassium 4.3 (3.3-5.1) mmol/L Chloride 104 (96-108) mmol/L Carbon Dioxide 29 (22-29) mmol/L Anion Gap 10 L (12-20) BUN 15 (9-16) mg/dL Creatinine 0.76 (0.5-1.4) mg/dL Estim Creat Clear Calc 58.5 Estimated GFR > 60 POC Glucose 178 H (60-115) mg/dL Random Glucose 155 H (60-115) mg/dL Calcium 9.0 (8.4-10.2) mg/dL Total Bilirubin 0.2 (0.0-1.0) mg/dL AST 18 (5-31) U/L ALT 16 (0-31) U/L Alkaline Phosphatase 105 (39-117) U/L Total Protein 6.2 L (6.5-8.0) g/dL Albumin 3.3 L (3.5-5.0) g/dL Urine Color Yellow Urine Appearance Clear Urine pH 7.0 (5.0-9.0) Ur Specific [place] 1.010 (1.005-1.025) Urine Protein Negative (Neg-Trace) mg/dL Urine Glucose (UA) 500 H (Negative) mg/dL Urine Ketones Negative (Negative) mg/dL Urine Blood Negative (Negative) Urine Nitrite Negative (Negative) Ur Leukocyte Esterase Negative (Negative) Discharge Plan Discharge Clinical Impression: Hyperglycemia due to type 2 diabetes mellitus Patient Disposition: Home, Self-Care Instructions: Diabetic Hyperglycemia (ED) Additional Instructions: Diet control as advised Take your insulin as prescribed and drink plenty of fluids Follow with your PCP Prescriptions: No Action aspirin 81 mg Tablet,Chewable 81 mg PO DAILY furosemide 20 mg tablet 20 mg PO DAILY lisinopril 2.5 mg tablet 2.5 mg PO DAILY bupropion HCl 200 mg tablet sustained-release 12 hr 200 mg PO BID acetaminophen 325 mg Tablet 650 mg PO Q6H PRN (Reason: Pain) tramadol 50 mg tablet 50 mg PO Q6H PRN (Reason: Pain) metformin 500 mg tablet extended release 24 hr 500 mg PO BID Levemir FlexPen 100 unit/mL (3 mL) insulin pen 66 unit subcut BEDTIME fluoxetine 40 mg capsule 40 mg PO DAILY Qty: 0 0RF omeprazole 20 mg Capsule,Delayed Release(Dr/Ec) 20 mg PO DAILY@0630 Qty: 0 0RF atorvastatin 10 mg Tablet 10 mg PO BEDTIME Qty: 30 0RF
[2023-09-30 21:23] VITALS: BP 168/89; PULSE 95; O2SAT 98
[2023-09-30 21:29] VITALS: BMI 24.1
[2023-09-30 21:35] VITALS: BP 130/68; PULSE 91; RESP 16; TEMP 36.7; O2SAT 97
[2023-09-30 21:35] LABS: Glucose, Whole Blood 178 mg/dL (60-115)
[2023-09-30] MEDS: 0.9 % Sodium Chloride 1,000 ML 999 ML IV (21:41)
[2023-09-30 22:00] LABS: MANUAL DIFF FLAG NO
[2023-09-30 22:15] LABS: Alanine Aminotransferase 16 U/L (0-31); Albumin Level 3.3 g/dL (3.5-5.0); Alkaline Phosphatase 105 U/L (39-117); Anion Gap 10 (12-20); Aspartate Amino Transferase 18 U/L (5-31); Bilirubin Total 0.2 mg/dL (0.0-1.0); Blood Urea Nitrogen 15 mg/dL (9-16); Carbon Dioxide 29 mmol/L (22-29); Chloride 104 mmol/L (96-108); Creatinine Clr Calc Pharmacy 58.5; Estimated Glomerular Filt Rate > 60; Glucose Random 155 mg/dL (60-115); Potassium 4.3 mmol/L (3.3-5.1); Sodium 139 mmol/L (135-145); Total Protein 6.2 g/dL (6.5-8.0)
[2023-09-30 22:20] LABS: Basophils Absolute Auto 0.1 X10*3/uL (0.0-0.2); Basophils Percent Auto 0.6 % (0-2); Eosinophils Absolute Auto 0.4 X10*3/uL (0.0-0.4); Eosinophils Percent Auto 3.1 % (0-4); Hematocrit 33.7 % (37.0-47.0); Hemoglobin 10.5 g/dl (12.0-16.0); Imm Gran Abs Auto 0.06 X10*3/uL (0.00-0.03); Imm Gran Pct Auto 0.5 % (0.0-0.4); Lymphocytes Absolute Auto 2.9 X10*3/uL (1.2-4.9); Lymphocytes Percent Auto 25.6 % (20-40); Mean Corpuscular HGB Conc 31.2 g/dl (31.0-35.0); Mean Corpuscular Hemoglobin 26.1 pg (27.0-33.0); Mean Corpuscular Volume 83.6 fL (80.0-98.0); Mean Platelet Volume 9.6 fL (9.4-12.3); Monocytes Absolute Auto 0.9 X10*3/uL (0.1-1.2); Monocytes Percent Auto 8.3 % (2-11); Neutrophils Percent Auto 61.9 % (45-73); Platelet Count 491 X10*3/uL (160-400); Red Blood Count 4.03 X10*6/uL (4.20-5.50); Red Cell Distribution Width 15.3 % (11.0-16.0); White Blood Count 11.3 X10*3/uL (4.8-10.8)
[2023-09-30 22:44] LABS: Appearance Urine Clear; Color Urine Yellow; Glucose Urine UA 500 mg/dL (Negative); Leukocyte Esterase Urine Negative (Negative); Nitrite Urine Negative (Negative); Urine Blood Negative (Negative); Urine Ketones Negative (Negative); Urine Protein Negative (Neg-Trace)
[2023-10-01 00:23] VITALS: BP 151/85; PULSE 92; RESP 18; TEMP 36.7; O2SAT 95
== END 2023-10-01 00:53 | disposition home or self-care (01) ==
PROVIDERS: Emergency Provider Internal Medicine
DX: E11.65 Type 2 diabetes mellitus with hyperglycemia (principal); M25.552 Pain in left hip; Z79.899 Other long term (current) drug therapy; Z79.4 Long term (current) use of insulin
CPT/HCPCS: 36415; 80053; 81003; 82947; 85025; 96360; 99284

== ENCOUNTER 2023-10-02 13:46 | Emergency (ER) | payer MEDICARE, SELFPAY ==
--- NOTE | ~2023-10-02 | XR_ITS ---
XR/XR hip LT w PEL1V IMPRESSION: 1. Redemonstration of a comminuted fracture of the greater trochanter of the left femur. 2. No new fracture or subluxation compared to 08/28/2023. 3. Moderate degenerative arthrosis. EXAMINATION: XR HIP, LEFT CLINICAL INFORMATION: Prior fracture, fell today. COMPARISON: Pelvic radiograph to 08/28/2023. TECHNIQUE: Two views of the left hip. FINDINGS: Again noted comminuted fracture of the greater trochanter of the left femur. No new fractures or subluxation. Pelvic rim and pubic symphysis are maintained. SI joints are symmetric. Moderate degenerative osteoarthritis of the hips with joint space narrowing and subcortical sclerosis. A 0.8 cm calcification in the right hemipelvis correlates with a phlebolith on prior CT. Scattered vascular calcifications.
[2023-10-02 14:17] VITALS: BP 174/93; PULSE 100; O2SAT 96
[2023-10-02 14:28] VITALS: BP 181/94; PULSE 106; RESP 18; TEMP 36.8; BMI 29.5
--- NOTE | 2023-10-02 15:09 | ED.GENADULT ---
HPI - General Adult General Chief complaint: Fall Stated complaint: R HIP PAIN Time Seen by Provider: 10/02/23 15:09 History of Present Illness HPI narrative: The patient is an 83-year-old woman who lives at later up elderly housing. This is an unsupervised facility. She apparently has a nurse who helps her administer Levemir injection of insulin every morning. Patient came to the hospital 2 days ago because of high blood sugars and spent the night in the emergency room and was discharged yesterday. Apparently this morning at around 05:00 she tripped over her cat. She says that she was able to get up but later spoke to her neighbor's. One neighbor in particular was very concerned about her and called an ambulance to have her evaluated for her fall. The patient says she did not hit her head. The patient had sustained a non operative left hip fracture 2 months ago. She had a comminuted avulsion fracture of the greater trochanter but no through and through fracture requiring surgery. The patient denies any fever, sweats, chills. She denies any headache or head injury. She denies any neck pain or pain with moving her neck. She denies any chest pain or shortness of breath or pain with breathing. She denies any abdominal pain, nausea, vomiting. Related Data Home Medications Medication Instructions Recorded Confirmed insulin detemir U-100 100 unit/mL 66 unit subcut BEDTIME 12/22/22 12/22/22 (3 mL) subcutaneous pen (Levemir FlexPen) metformin 500 mg tablet,extended 500 mg PO BID 12/22/22 08/30/23 release 24 hr acetaminophen 325 mg tablet 650 mg PO Q6H PRN Pain 08/28/23 08/30/23 aspirin 81 mg chewable tablet 81 mg PO DAILY 08/28/23 08/30/23 bupropion HCl 200 mg tablet,12 hr 200 mg PO BID 08/28/23 08/30/23 sustained-release furosemide 20 mg tablet 20 mg PO DAILY 08/28/23 08/30/23 lisinopril 2.5 mg tablet 2.5 mg PO DAILY 08/28/23 08/30/23 tramadol 50 mg tablet 50 mg PO Q6H PRN Pain 08/30/23 08/30/23 Previous Rx's Medication Instructions Recorded atorvastatin 10 mg tablet 10 mg PO BEDTIME #30 tabs 12/25/22 fluoxetine 40 mg capsule 40 mg PO DAILY #0 caps 12/25/22 omeprazole 20 mg capsule,delayed 20 mg PO DAILY@0630 #0 caps 12/25/22 release Allergies Allergy/AdvReac Type Severity Reaction Status Date / Time bee pollen [BEE STINGS] Allergy Unknown UNKNOWN Verified 09/30/23 21:32 morphine [MORPHINE] Allergy Unknown UNKNOWN Verified 09/30/23 21:32 Penicillins [PENICILLINS] Allergy Unknown UNKNOWN Verified 09/30/23 21:32 Review of Systems Review of Systems: Yes all other systems are reviewed and are negative [facility] Social History Social History Household Members: None Housing: Apartment Do you presently have visiting nurse or other home services: Yes Alcohol intake: former Comment: Red wrist band on. Patient Tobacco Use Status: Never used Tobacco Smoked in Last 30 Days: No e-Cigarette/Vaping Use: Never Used Use of substances other than those prescribed or required for medical reasons: No Advance Directives: No service: No Sexual orientation: Straight/Heterosexual Physical Exam ED Vital Signs: Vital Signs - 24 hr 10/02/23 14:28 10/02/23 19:47 10/02/23 19:58 Temperature 98.3 F 98.2 F 98.2 F Pulse Rate 106 H 77 77 Respiratory Rate 18 18 18 Blood Pressure 181/94 H 154/83 H 154/83 H Pulse Oximetry 94 94 Oxygen Delivery Method Room Air Room Air BMI result Body Mass Index 29.5 Const Other: The patient is an 83-year-old woman who looks as if she is in reasonably good health. She does not appear obviously ill. She has a slightly vague demeanor but is very pleasant. She does not appear acutely injured or ill [facility] Other: No signs of trauma to the head or the face. Mucous membranes are moist Eyes Other: Pupils are round equal, conjunctivae are clear Neck Other: No C-spine tenderness. No JVD Resp Effort & Inspection: normal respiratory effort Auscultation: clear to auscultation bilaterally Cardio Rate: regular rate Rhythm: regular rhythm Heart sounds: S1 normal heart sound present and S2 normal heart sound present GI Other: Abdomen is soft and nontender Back/Spine/Pelvis Other: No midline vertebral tenderness in the back Skin Other: Skin is dry and unremarkable. Skin is intact. No bruising Neuro Other: The patient is awake and alert. She knows that she is at [facility]. She is able to tell me that she lives at a [facility] assisted-living facility. The face is symmetrical. Eye movements are normal. Speech is clear. No obvious cranial nerve deficit of any kind. She moves all 4 extremities symmetrically. Extrem Other: I can manipulate the patient's right hip through an excellent range of motion without any apparent discomfort or limitation. The patient can also move the right hip extremely well. The patient moves the left hip fairly well but she has some discomfort when I manipulated with internal and external rotation. There is no deformity. Other joints are unremarkable Medical Decision Making Medical Decision Making MDM Narrative: The patient is an 83-year-old female who lives by herself at an elderly housing complex who apparently tripped over her cat. She is a very vague historian. She was able to get up. She apparently talked to her neighbors about some pain she has been having related to the fall. Her neighbors are very worried that she had a recent left hip fracture (in fact it was a greater trochanter avulsion fracture, a nonoperative fracture) and insisted she come to the hospital for evaluation. Here the patient is really denying any complaints. An x-ray of the left hip does not show any new injuries. Labs are unremarkable. I think the patient may return to her apartment. Lab Data 10/02/23 15:54 10/02/23 15:54 Labs: Lab Results 10/02/23 Range/Units 15:54 WBC 12.3 H (4.8-10.8) X10*3/uL RBC 4.71 (4.20-5.50) X10*6/uL Hgb 12.2 (12.0-16.0) g/dl Hct 39.0 (37.0-47.0) % MCV 82.8 (80.0-98.0) fL MCH 25.9 L (27.0-33.0) pg MCHC 31.3 (31.0-35.0) g/dl RDW 15.4 (11.0-16.0) % Plt Count 548 H (160-400) X10*3/uL MPV 9.4 (9.4-12.3) fL Immature Gran % (Auto) 0.5 H (0.0-0.4) % Neut % (Auto) 69.7 (45-73) % Lymph % (Auto) 21.2 (20-40) % Castro % (Auto) 6.9 (2-11) % Eos % (Auto) 1.1 (0-4) % Baso % (Auto) 0.6 (0-2) % Lymph # (Auto) 2.6 (1.2-4.9) X10*3/uL Castro # (Auto) 0.8 (0.1-1.2) X10*3/uL Eos # (Auto) 0.1 (0.0-0.4) X10*3/uL Baso # (Auto) 0.1 (0.0-0.2) X10*3/uL Abs Immat Gran (auto) 0.06 H (0.00-0.03) X10*3/uL Absolute Neuts (auto) 8.6 H (2.0-8.3) x10*3/uL Absolute Nucleated RBC 0.000 (0.0-0.012) X10*3/uL Nucleated RBC % (auto) 0.0 (0.0-0.2) /100WBC Sodium 138 (135-145) mmol/L Potassium 4.1 (3.3-5.1) mmol/L Chloride 104 (96-108) mmol/L Carbon Dioxide 25 (22-29) mmol/L Anion Gap 13 (12-20) BUN 15 (9-16) mg/dL Creatinine 0.98 (0.5-1.4) mg/dL Estim Creat Clear Calc 37.2 Estimated GFR 54 Random Glucose 254 H (60-115) mg/dL Calcium 9.2 (8.4-10.2) mg/dL Total Bilirubin 0.3 (0.0-1.0) mg/dL Direct Bilirubin 0.2 (0.0-0.5) mg/dL AST 16 (5-31) U/L ALT 18 (0-31) U/L Alkaline Phosphatase 104 (39-117) U/L Total Protein 6.8 (6.5-8.0) g/dL Albumin 3.6 (3.5-5.0) g/dL Discharge Plan Discharge Clinical Impression: Left hip pain Patient Disposition: Home, Self-Care Additional Instructions: I do not think you have refractured your left hip. Your blood tests are reassuring. Please continue your regular medications. Please follow-up soon with your regular doctor. Return to the emergency room if worse. Prescriptions: No Action aspirin 81 mg Tablet,Chewable 81 mg PO DAILY furosemide 20 mg tablet 20 mg PO DAILY lisinopril 2.5 mg tablet 2.5 mg PO DAILY bupropion HCl 200 mg tablet sustained-release 12 hr 200 mg PO BID acetaminophen 325 mg Tablet 650 mg PO Q6H PRN (Reason: Pain) tramadol 50 mg tablet 50 mg PO Q6H PRN (Reason: Pain) metformin 500 mg tablet extended release 24 hr 500 mg PO BID Levemir FlexPen 100 unit/mL (3 mL) insulin pen 66 unit subcut BEDTIME fluoxetine 40 mg capsule 40 mg PO DAILY Qty: 0 0RF omeprazole 20 mg Capsule,Delayed Release(Dr/Ec) 20 mg PO DAILY@0630 Qty: 0 0RF atorvastatin 10 mg Tablet 10 mg PO BEDTIME Qty: 30 0RF Referrals: Ezequiel Jacques MD [Physician] - (General medical problems) Interventions: ED Discharge Assessment Last Done: 10/02/23 19:58 Discharge Date/Time: 10/02/23 20:01
[2023-10-02 15:59] LABS: MANUAL DIFF FLAG NO
[2023-10-02 16:01] LABS: Basophils Absolute Auto 0.1 X10*3/uL (0.0-0.2); Basophils Percent Auto 0.6 % (0-2); Eosinophils Absolute Auto 0.1 X10*3/uL (0.0-0.4); Eosinophils Percent Auto 1.1 % (0-4); Hemoglobin 12.2 g/dl (12.0-16.0); Imm Gran Abs Auto 0.06 X10*3/uL (0.00-0.03); Imm Gran Pct Auto 0.5 % (0.0-0.4); Lymphocytes Absolute Auto 2.6 X10*3/uL (1.2-4.9); Lymphocytes Percent Auto 21.2 % (20-40); Mean Corpuscular HGB Conc 31.3 g/dl (31.0-35.0); Mean Corpuscular Hemoglobin 25.9 pg (27.0-33.0); Mean Corpuscular Volume 82.8 fL (80.0-98.0); Mean Platelet Volume 9.4 fL (9.4-12.3); Monocytes Absolute Auto 0.8 X10*3/uL (0.1-1.2); Monocytes Percent Auto 6.9 % (2-11); Neutrophils Absolute Auto 8.6 x10*3/uL (2.0-8.3); Neutrophils Percent Auto 69.7 % (45-73); Platelet Count 548 X10*3/uL (160-400); Red Blood Count 4.71 X10*6/uL (4.20-5.50); Red Cell Distribution Width 15.4 % (11.0-16.0); White Blood Count 12.3 X10*3/uL (4.8-10.8)
[2023-10-02 16:17] LABS: Alanine Aminotransferase 18 U/L (0-31); Albumin Level 3.6 g/dL (3.5-5.0); Alkaline Phosphatase 104 U/L (39-117); Anion Gap 13 (12-20); Aspartate Amino Transferase 16 U/L (5-31); Bilirubin Direct 0.2 mg/dL (0.0-0.5); Bilirubin Total 0.3 mg/dL (0.0-1.0); Blood Urea Nitrogen 15 mg/dL (9-16); Calcium 9.2 mg/dL (8.4-10.2); Carbon Dioxide 25 mmol/L (22-29); Chloride 104 mmol/L (96-108); Creatinine Clr Calc Pharmacy 37.2; Estimated Glomerular Filt Rate 54; Glucose Random 254 mg/dL (60-115); Potassium 4.1 mmol/L (3.3-5.1); Sodium 138 mmol/L (135-145); Total Protein 6.8 g/dL (6.5-8.0)
--- NOTE | 2023-10-02 17:56 | MHC.CM.ED ---
Addendum entered by Zuleyma Magdaleno 10/02/23 19:08: Pt ride home is on the way. RN aware. Addendum entered by Zuleyma Magdaleno 10/02/23 18:37: Pt to be discharged home. Pt requested CM call friend, Marilee Rodriguez ([phone]). She will try to arrange a ride for the patient and call CM back. Addendum entered by Zuleyma Magdaleno 10/02/23 18:19: HCP on file. Marilee Rodriguez ([phone]). PCP is Dr. Jacques at [facility] in [place]. Pt ambulating without difficulty. Provider will discharge to home with continuation of services. Original Note: CM met with patient with Dr. Aldrich. A&Ox3. Lives in elderly housing. Has [employer] daily for insulin injection. They set up her meds. She has a med reminder. 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 Both her children are , but she does have a grandson, Dustin ([phone]) who lives locally and can assist her if needed. Pt work up is ongoing. CM will follow as needed.
[2023-10-02 19:47] VITALS: BP 154/83; PULSE 77; RESP 18; TEMP 36.8; O2SAT 94
[2023-10-02 19:58] VITALS: BP 154/83; PULSE 77; RESP 18; TEMP 36.8; O2SAT 94
== END 2023-10-02 20:01 | disposition home or self-care (01) ==
PROVIDERS: Emergency Provider Emergency Medicine
DX: M25.552 Pain in left hip (principal); S72.112D Displaced fracture of greater trochanter of left femur, subsequent encounter for closed fracture with routine healing; X58.XXXD Exposure to other specified factors, subsequent encounter
CPT/HCPCS: 36415; 73502; 80048; 80076; 85025; 99283; 99284

== ENCOUNTER 2023-10-17 00:57 | Emergency (ER) | payer MEDICARE, SELFPAY ==
[2023-10-17] VITALS (8 sets, daily range): BP systolic 143–190; BP diastolic 68–100; PULSE 80–97; RESP 12–15; TEMP 36.3–36.7; O2SAT 95–99; BMI 32.1
--- NOTE | ~2023-10-17 | CT_ITS ---
CT HEAD AND CERVICAL SPINE WITHOUT CONTRAST HISTORY: Status post fall TECHNIQUE: Contiguous axial imaging was performed from the skull base to vertex without intravenous contrast. Sagittal and coronal reformatted images were obtained. CT images of the cervical spine were acquired without intravenous contrast. This CT examination was performed using dose optimization techniques as appropriate, variously including the following: *Automated exposure control *Adjustment of mA and/or kV according to patient size (this includes techniques or standardized protocols for targeted exams where dose is matched to indication/reason for exam; i.e. extremities or head) *Use of iterative reconstruction technique DLP: 1055.76 mGy-cm COMPARISON: CT head and C-spine of 08/30/2023 FINDINGS: CT HEAD: Background of moderate generalized parenchymal volume loss, unchanged. Confluent low density in the subcortical and periventricular white matter, deep you nuclei, external capsules and anterior temporal lobes. Limited assessment for superimposed acute ischemia which would be better evaluated on MRI if there is clinical concern. No acute intracranial hemorrhage or extra-axial fluid collection. Unchanged densely calcified right temporal convexity mass abutting the right tentorium with subjacent erosive calvarial changes compatible with meningioma. Stable mass effect along the subjacent brain parenchyma without vasogenic edema. Partially empty sella. Lens replacements. Stable 4 mm dermal-based left upper eyelid lesion. Paranasal sinuses and mastoid air cells are well aerated. Stable 1.3 cm sclerotic lesion in the right frontal calvarium since 11/25/2021, suggestive of benign etiology. 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 Severe right TMJ osteoarthrosis. Partially imaged atrophy of the bilateral drug inspector space musculature. CT CERVICAL SPINE: No prevertebral soft tissue swelling. The craniocervical junction is intact. Vertebral body heights are normal. No acute compression fracture or traumatic posterior element subluxation. The cervical lordosis is preserved. Please note that CT is insensitive for evaluating spinal canal patency without intrathecal contrast. There is advanced multilevel cervical spondylosis. There is severe C3-C4 spinal canal stenosis with mass effect along the cord. A partially calcified paracentral disc osteophyte protrusion at C5-C6 contributes to apparent moderate spinal canal stenosis with mass effect along the cord. Uncovertebral and facet joint hypertrophy contribute to multilevel severe neural foraminal narrowing. Normal appearance of the paraspinal soft tissues. Visualized lung apices are clear. Normal appearance of the thyroid gland. Query circumferential mural thickening of the esophageal inlet and imaged upper esophagus may be inflammatory and could reflect esophagitis or sequela of gastroesophageal reflux disease and can be correlated clinically. 3 mm hypodense left thyroid nodule below size criteria for imaging follow-up. CT/CT head/brain wo IV con IMPRESSION: 1. No acute intracranial abnormality. 2. Stable extensive white matter disease, with involvement of the external capsules and anterior temporal lobes raising the possibility of CADASIL. Limited assessment for superimposed acute ischemia which would be better evaluated on MRI if there is clinical concern. 3. Stable right temporal convexity meningioma with associated mass effect. 4. No acute osseous injury of the cervical spine. 5. Advanced cervical spondylosis with severe C3-C4 spinal canal stenosis with mass effect along the cord and multilevel severe neural foraminal stenosis. 6. Query circumferential mural thickening of the esophageal inlet and imaged upper esophagus may be inflammatory reflective of esophagitis that can be correlated clinically for gastroesophageal reflux disease.
--- NOTE | ~2023-10-17 | XR_ITS ---
EXAMINATION: XR RIBS, LEFT CLINICAL INFORMATION: Left rib pain, fall COMPARISON: 08/28/2023 TECHNIQUE: 3 views of the left ribs were obtained. FINDINGS: Lung volumes are symmetric. Trace left basilar atelectasis is suspected, without additional consolidation. No evidence of pneumothorax, pleural effusion, or pulmonary edema. Cardiac size is within normal limits. Calcification is present at the aortic arch. On a single view there is suggestion of a minimally displaced posterior left sixth rib fracture; clinical correlation at this site is recommended. Degenerative changes are noted in the spine. XR/XR ribs LT min 3V w CXR1V IMPRESSION: Suggestion of a minimally displaced posterior left sixth rib fracture; clinical correlation at this site is recommended. Trace left basilar atelectasis.
[2023-10-17 01:49] LABS: MANUAL DIFF FLAG NO
[2023-10-17 01:50] LABS: Basophils Absolute Auto 0.1 X10*3/uL (0.0-0.2); Basophils Percent Auto 0.4 % (0-2); Eosinophils Absolute Auto 0.2 X10*3/uL (0.0-0.4); Eosinophils Percent Auto 1.9 % (0-4); Hematocrit 37.5 % (37.0-47.0); Hemoglobin 11.7 g/dl (12.0-16.0); Imm Gran Abs Auto 0.07 X10*3/uL (0.00-0.03); Imm Gran Pct Auto 0.6 % (0.0-0.4); Lymphocytes Absolute Auto 1.5 X10*3/uL (1.2-4.9); Lymphocytes Percent Auto 12.8 % (20-40); Mean Corpuscular HGB Conc 31.2 g/dl (31.0-35.0); Mean Corpuscular Hemoglobin 25.7 pg (27.0-33.0); Mean Corpuscular Volume 82.4 fL (80.0-98.0); Mean Platelet Volume 9.3 fL (9.4-12.3); Monocytes Absolute Auto 0.8 X10*3/uL (0.1-1.2); Monocytes Percent Auto 6.8 % (2-11); Neutrophils Percent Auto 77.5 % (45-73); Platelet Count 498 X10*3/uL (160-400); Red Blood Count 4.55 X10*6/uL (4.20-5.50); Red Cell Distribution Width 15.4 % (11.0-16.0); White Blood Count 11.7 X10*3/uL (4.8-10.8)
[2023-10-17 02:12] LABS: Alanine Aminotransferase 23 U/L (0-31); Albumin Level 3.7 g/dL (3.5-5.0); Alkaline Phosphatase 118 U/L (39-117); Anion Gap 13 (12-20); Aspartate Amino Transferase 17 U/L (5-31); Bilirubin Total 0.3 mg/dL (0.0-1.0); Blood Urea Nitrogen 17 mg/dL (9-16); Calcium 9.3 mg/dL (8.4-10.2); Carbon Dioxide 26 mmol/L (22-29); Chloride 103 mmol/L (96-108); Creatinine Clr Calc Pharmacy 38.5; Estimated Glomerular Filt Rate 54; Glucose Random 346 mg/dL (60-115); Potassium 3.7 mmol/L (3.3-5.1); Sodium 138 mmol/L (135-145); Total Protein 7.2 g/dL (6.5-8.0)
--- NOTE | 2023-10-17 03:41 | ECG_ITS ---
Test Reason : FALL Blood Pressure : / mmHG Vent. Rate : 094 BPM Atrial Rate : 094 BPM P-R Int : 162 ms QRS Dur : 098 ms QT Int : 388 ms P-R-T Axes : 067 050 061 degrees QTc Int : 485 ms Normal sinus rhythm Normal ECG When compared with ECG of 28-AUG-2023 17:40, No significant change was found Referred By: Radha Milner Electronically Signed By:Darius Boo
--- NOTE | 2023-10-17 03:42 | ED.FALL ---
HPI - Fall General Chief Complaint: Fall Stated Complaint: fall/rt lower leg pain Time Seen by Provider: 10/17/23 03:26 Source: patient Mode of arrival: ambulatory Limitations: no limitations History of Present Illness HPI Narrative: Patient comes to the emergency room complaining of a fall. Patient states that her legs were very weak and landed on the left side of her body, patient complaining of left rib pain. Patient states that she might have bumped her head. Does not know if she lost consciousness but does not believe so. Patient has a life Alert button, called 911. Patient states that the left side of her ribs hurt. Patient states that she lives by herself. EMS gave the patient fentanyl 100 mcg, EMS applied 2 L of oxygen for O2 of 90, patient states that she has not O2 dependent. Related Data Home Medications Medication Instructions Recorded Confirmed insulin detemir U-100 100 unit/mL 66 unit subcut BEDTIME 12/22/22 12/22/22 (3 mL) subcutaneous pen (Levemir FlexPen) metformin 500 mg tablet,extended 500 mg PO BID 12/22/22 08/30/23 release 24 hr acetaminophen 325 mg tablet 650 mg PO Q6H PRN Pain 08/28/23 08/30/23 aspirin 81 mg chewable tablet 81 mg PO DAILY 08/28/23 08/30/23 bupropion HCl 200 mg tablet,12 hr 200 mg PO BID 08/28/23 08/30/23 sustained-release furosemide 20 mg tablet 20 mg PO DAILY 08/28/23 08/30/23 lisinopril 2.5 mg tablet 2.5 mg PO DAILY 08/28/23 08/30/23 tramadol 50 mg tablet 50 mg PO Q6H PRN Pain 08/30/23 08/30/23 Previous Rx's Medication Instructions Recorded atorvastatin 10 mg tablet 10 mg PO BEDTIME #30 tabs 12/25/22 fluoxetine 40 mg capsule 40 mg PO DAILY #0 caps 12/25/22 omeprazole 20 mg capsule,delayed 20 mg PO DAILY@0630 #0 caps 12/25/22 release Allergies Allergy/AdvReac Type Severity Reaction Status Date / Time bee pollen [BEE STINGS] Allergy Unknown UNKNOWN Verified 09/30/23 21:32 morphine [MORPHINE] Allergy Unknown UNKNOWN Verified 09/30/23 21:32 Penicillins [PENICILLINS] Allergy Unknown UNKNOWN Verified 09/30/23 21:32 Review of Systems Review of Systems: Constitutional : No Weight loss, No Fever, No Chills, No Night Sweats, No Fatigue, No Malaise ENT/Mouth : No Hearing loss, No Ear Pain, No Nasal Congestion, No Sinus Pain, No Hoarseness, No sore throat, No Rhinorrhea, No Swallowing Difficulty Eyes: No Eye Pain, No Swelling, No Redness, No Foreign Body, No Discharge, No Vision Changes Cardiovascular : No Chest Pain, No SOB, No Dyspnea on Exertion, No Orthopnea, No Edema, No Palpitations Respiratory : No Cough, No Sputum, No Wheezing, No Smoke Exposure, No Dyspnea Gastrointestinal : No Nausea, No Vomiting, No Diarrhea, No Constipation, No abdominal Pain, No Hematochezia, No Melena Genitourinary : no irregular bleeding, No Dysuria, No Urinary Frequency, No Hematuria, No Urinary Incontinence, No Urgency, No Flank Pain, No Urinary Flow Changes, No Hesitancy Musculoskeletal : Complaining of left rib pain Skin : No Skin Lesions, No rash Neuro : No Weakness, No Numbness, No Paresthesias, No Loss of Consciousness, No Dizziness, No Headache Psych : No Anxiety/Panic, No Depression, No SI/HI/AH/VH, No Social Issues, Heme/Lymph: No Bruising, No Bleeding,No Lymphadenopathy Endocrine : No Polyuria, No Polydipsia, No Temperature Intolerance [facility] Past Medical History Medical History (Updated 10/17/23 @ 05:49 by Radha Milner MD) Diabetes MDD (major depressive disorder), recurrent episode, moderate Social History Social History Household Members: None Housing: Apartment Do you presently have visiting nurse or other home services: Yes Alcohol intake: former Comment: Red wrist band on. Patient Tobacco Use Status: Never used Tobacco Smoked in Last 30 Days: No e-Cigarette/Vaping Use: Never Used Use of substances other than those prescribed or required for medical reasons: No Advance Directives: Yes Advance Directives on File: Yes Advance Directives Date on File: 08/29/23 service: No Sexual orientation: Straight/Heterosexual Physical Exam Vital Signs: Vital Signs: Last Vital Signs Temp 97.4 F 10/17/23 03:56 Pulse 96 10/17/23 03:56 Resp 13 10/17/23 03:56 BP 169/84 H 10/17/23 03:56 Pulse Ox 97 10/17/23 03:56 O2 Del Method Room Air 10/17/23 03:56 O2 Flow Rate 2 10/17/23 01:21 Oxygen Flow Rate 2 10/17/23 01:15 BMI result Body Mass Index 32.1 Const: Other: Appearance: Alert. Oriented X3. No acute distress. Eyes: Pupils equal, round and reactive to light. ENT: Pharynx normal. Neck: Normal inspection. Neck supple. No lymph nodes noted. No crepitus CVS: Normal heart rate and rhythm. Pulses normal. Normal S1 and S2 pain to palpation on the left side of the ribs Respiratory: No respiratory distress. Breath sounds normal. No Wheezing. No rales Abdomen: Soft and nontender. No rigidity. No distention. Skin: Skin warm and dry. Normal skin color. Normal skin turgor. Extremities: No lower extremity edema. No Lacerations. No Rash, patient able to flex and extend the hips Neuro: Oriented X 3. No motor deficit. No sensory deficit. Moving all extremities. No slurred speech. CN 2 through 12 grossly intact Psych: calm, cooperative, normal affect Course Course Course Narrative: -patient complaining of weakness and falls. We will go ahead and order labs and x-rays Medical Decision Making Medical Decision Making [facility] Narrative: -my interpretation of labs: Hematology and chemistry at baseline, glucose 346, LFTs normal, urine negative for UTI -my interpretation of CT scan of the head and neck no obvious abnormality. -my interpretation of x-ray of the ribs, seems that there is a small rib fracture, 6 rib -radiology confirmed that they is a minimally displaced 6 rib fracture in the last -patient lives by herself, concerned that she can not take care of herself. - PT case management consult pending -sign-out given to Dr. Robb Differential Diagnosis Differential Diagnoses: The differential diagnosis associated with the presentation includes (Compensation, UTI, mechanical falls) Admission/Observation Consideration of admission/observation: Escalation of care including admission/observation considered (Patient will likely need PT and case management) Lab Data [facility] Lab Attestation statement: I reviewed the patient's lab results. 10/17/23 01:43 10/17/23 01:43 Labs: Lab Results 10/17/23 10/17/23 Range/Units 01:43 05:21 WBC 11.7 H (4.8-10.8) X10*3/uL RBC 4.55 (4.20-5.50) X10*6/uL Hgb 11.7 L (12.0-16.0) g/dl Hct 37.5 (37.0-47.0) % MCV 82.4 (80.0-98.0) fL MCH 25.7 L (27.0-33.0) pg MCHC 31.2 (31.0-35.0) g/dl RDW 15.4 (11.0-16.0) % Plt Count 498 H (160-400) X10*3/uL MPV 9.3 L (9.4-12.3) fL Immature Gran % (Auto) 0.6 H (0.0-0.4) % Neut % (Auto) 77.5 H (45-73) % Lymph % (Auto) 12.8 L (20-40) % Holt % (Auto) 6.8 (2-11) % Eos % (Auto) 1.9 (0-4) % Baso % (Auto) 0.4 (0-2) % Lymph # (Auto) 1.5 (1.2-4.9) X10*3/uL Holt # (Auto) 0.8 (0.1-1.2) X10*3/uL Eos # (Auto) 0.2 (0.0-0.4) X10*3/uL Baso # (Auto) 0.1 (0.0-0.2) X10*3/uL Abs Immat Gran (auto) 0.07 H (0.00-0.03) X10*3/uL Absolute Neuts (auto) 9.0 H (2.0-8.3) x10*3/uL Absolute Nucleated RBC 0.000 (0.0-0.012) X10*3/uL Nucleated RBC % (auto) 0.0 (0.0-0.2) /100WBC Sodium 138 (135-145) mmol/L Potassium 3.7 (3.3-5.1) mmol/L Chloride 103 (96-108) mmol/L Carbon Dioxide 26 (22-29) mmol/L Anion Gap 13 (12-20) BUN 17 H (9-16) mg/dL Creatinine 0.99 (0.5-1.4) mg/dL Estim Creat Clear Calc 38.5 Estimated GFR 54 Random Glucose 346 H (60-115) mg/dL Calcium 9.3 (8.4-10.2) mg/dL Total Bilirubin 0.3 (0.0-1.0) mg/dL AST 17 (5-31) U/L ALT 23 (0-31) U/L Alkaline Phosphatase 118 H (39-117) U/L Total Creatine Kinase 23 L (26-140) U/L Troponin I High Sens < 2.7 (<3.5-17.0) ng/L Total Protein 7.2 (6.5-8.0) g/dL Albumin 3.7 (3.5-5.0) g/dL Urine Color Yellow Urine Appearance Clear Urine pH 6.5 (5.0-9.0) Ur Specific [place] 1.025 (1.005-1.025) Urine Protein 30 (1+) H (Neg-Trace) mg/dL Urine Glucose (UA) >=1000 H (Negative) mg/dL Urine Ketones Negative (Negative) mg/dL Urine Blood Negative (Negative) Urine Nitrite Negative (Negative) Ur Leukocyte Esterase Negative (Negative) Urine RBC 0-2 (0-2) /HPF Urine WBC 0-5 (0-5) /HPF Ur Squamous Epith Cells 0-2 (0-2) /HPF Urine Bacteria None Seen (None Seen) Hyaline Casts 0-2 (0-2) /LPF Independent Interpretation I performed an independent interpretation of an: CT Scan Radiology Impression Discussion of test interpretation with radiology: I have reviewed the radiologist's reading. Radiologist Impression: CT HEAD: Background of moderate generalized parenchymal volume loss, unchanged. Confluent low density in the subcortical and periventricular white matter, deep you nuclei, external capsules and anterior temporal lobes. Limited assessment for superimposed acute ischemia which would be better evaluated on MRI if there is clinical concern. No acute intracranial hemorrhage or extra-axial fluid collection. Unchanged densely calcified right temporal convexity mass abutting the right tentorium with subjacent erosive calvarial changes compatible with meningioma. Stable mass effect along the subjacent brain parenchyma without vasogenic edema. Partially empty sella. Lens replacements. Stable 4 mm dermal-based left upper eyelid lesion. Paranasal sinuses and mastoid air cells are well aerated. Stable 1.3 cm sclerotic lesion in the right frontal calvarium since 11/25/2021, suggestive of benign etiology. 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 Severe right TMJ osteoarthrosis. Partially imaged atrophy of the bilateral poker machine attendant space musculature. CT CERVICAL SPINE: No prevertebral soft tissue swelling. The craniocervical junction is intact. Vertebral body heights are normal. No acute compression fracture or traumatic posterior element subluxation. The cervical lordosis is preserved. Please note that CT is insensitive for evaluating spinal canal patency without intrathecal contrast. There is advanced multilevel cervical spondylosis. There is severe C3-C4 spinal canal stenosis with mass effect along the cord. A partially calcified paracentral disc osteophyte protrusion at C5-C6 contributes to apparent moderate spinal canal stenosis with mass effect along the cord. Uncovertebral and facet joint hypertrophy contribute to multilevel severe neural foraminal narrowing. Normal appearance of the paraspinal soft tissues. Visualized lung apices are clear. Normal appearance of the thyroid gland. Query circumferential mural thickening of the esophageal inlet and imaged upper esophagus may be inflammatory and could reflect esophagitis or sequela of gastroesophageal reflux disease and can be correlated clinically. 3 mm hypodense left thyroid nodule below size criteria for imaging follow-up. CT/CT head/brain wo IV con IMPRESSION: 1. No acute intracranial abnormality. 2. Stable extensive white matter disease, with involvement of the external capsules and anterior temporal lobes raising the possibility of CADASIL. Limited assessment for superimposed acute ischemia which would be better evaluated on MRI if there is clinical concern. 3. Stable right temporal convexity meningioma with associated mass effect. 4. No acute osseous injury of the cervical spine. 5. Advanced cervical spondylosis with severe C3-C4 spinal canal stenosis with mass effect along the cord and multilevel severe neural foraminal stenosis. 6. Query circumferential mural thickening of the esophageal inlet and imaged upper esophagus may be inflammatory reflective of esophagitis that can be correlated clinically for gastroesophageal reflux disease. FINDINGS: Lung volumes are symmetric. Trace left basilar atelectasis is suspected, without additional consolidation. No evidence of pneumothorax, pleural effusion, or pulmonary edema. Cardiac size is within normal limits. Calcification is present at the aortic arch. On a single view there is suggestion of a minimally displaced posterior left sixth rib fracture; clinical correlation at this site is recommended. Degenerative changes are noted in the spine. XR/XR ribs LT min 3V w CXR1V IMPRESSION: Suggestion of a minimally displaced posterior left sixth rib fracture; clinical correlation at this site is recommended. Trace left basilar atelectasis. Independent Historian Clinical information obtained from an independent historian. History obtained from or confirmed by: EMS Discharge Plan Discharge Clinical Impression: Fall, Weakness Patient Disposition: Still a Patient Prescriptions: No Action aspirin 81 mg Tablet,Chewable 81 mg PO DAILY furosemide 20 mg tablet 20 mg PO DAILY lisinopril 2.5 mg tablet 2.5 mg PO DAILY bupropion HCl 200 mg tablet sustained-release 12 hr 200 mg PO BID acetaminophen 325 mg Tablet 650 mg PO Q6H PRN (Reason: Pain) tramadol 50 mg tablet 50 mg PO Q6H PRN (Reason: Pain) metformin 500 mg tablet extended release 24 hr 500 mg PO BID Levemir FlexPen 100 unit/mL (3 mL) insulin pen 66 unit subcut BEDTIME fluoxetine 40 mg capsule 40 mg PO DAILY Qty: 0 0RF omeprazole 20 mg Capsule,Delayed Release(Dr/Ec) 20 mg PO DAILY@0630 Qty: 0 0RF atorvastatin 10 mg Tablet 10 mg PO BEDTIME Qty: 30 0RF
[2023-10-17 03:49] LABS: Troponin-I High Sensitivity < 2.7 ng/L (<3.5-17.0)
--- NOTE | 2023-10-17 05:29 | PC.NURSE ---
Urine obtained via straight cath. Pt voided approx 600mL of clear, yellow urine. Pt tolerated insertion well.
[2023-10-17 05:37] LABS: Appearance Urine Clear; Color Urine Yellow; Glucose Urine UA >=1000 mg/dL (Negative); Leukocyte Esterase Urine Negative (Negative); Nitrite Urine Negative (Negative); PH 6.5 (5.0-9.0); Specific Gravity - Urine 1.025 (1.005-1.025); UMIC TRIGGER UACC YES; Urine Blood Negative (Negative); Urine Ketones Negative (Negative); Urine Protein 30 (1+) mg/dL (Neg-Trace)
[2023-10-17 05:41] LABS: Bacteria Urine None Seen (None Seen); Hyaline Casts Urine 0-2 /LPF (0-2); RBC Urine 0-2 /HPF (0-2); Squamous Epithelial Cell Urine 0-2 /HPF (0-2); WBC Urine 0-5 /HPF (0-5)
[2023-10-17] MEDS: oxyCODONE HCl Immed Release 5 MG TABLET PO ×2 (06:02→18:24)
--- NOTE | 2023-10-17 09:19 | PC.NURSE ---
patient resting quietly in bed, respirations equal and unlabored, VSS, patient boosted and repositioned in bed, breakfast ordered.
--- NOTE | 2023-10-17 13:07 | MHC.CM.PN ---
Addendum entered by Meron Lambert RN 10/17/23 15:08: PT unable to stand patient. Awaiting weight bearing status orders from MD to complete eval. CM will continue to follow. Original Note: Patient is from home alone, lives in apartment in elderly housing. Ambulates w/ a rollator. Active w/ [facility] for daily SN. Active w/ [facility] for MOW 5 days/wk and [employer] 5 days/wk. Patient completed new HCP naming giovanni Chan as agent. PCP is Georgie. DP: Pending PT eval. Goal is home, resume services, add home PT. Return referral placed to [facility]. Patient does not wish to go to STR. CM will continue to follow.
--- NOTE | 2023-10-17 18:59 | PC.NURSE ---
patient moved into ED room 3, and given hospital bed for comfort. patient stood and pivoted with walker. patient sat on edge of bed for aprox 30 minutes to let legs dangle. patient alert and oriented x3 medicated per MAR for rib pain. respirations equal and unlabored, skin dry and intact.
--- NOTE | 2023-10-17 20:59 | PC.NURSE ---
Pt ca&ox3, no signs of distress. Pt assisted to the restroom and back into bed. Plan of care ongoing.
[2023-10-18 06:38] VITALS: BP 144/72; PULSE 66; RESP 16; TEMP 36.9; O2SAT 94
--- NOTE | 2023-10-18 07:21 | PC.NURSE ---
assumed care of this patient at 0700, patient continues to sleep on hosptial bed at this time.
[2023-10-18 08:21] LABS: Glucose, Whole Blood 200 mg/dL (60-115)
--- NOTE | 2023-10-18 08:38 | PC.NURSE ---
Patient ambulated to the BR 1a with walker, repositioned in bed, breakfast given, POC taken, med rec completed, spoke to provider about ordering PRN pain meds, given and educated on use of incentive spirometer.
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
--- NOTE | 2023-10-18 09:12 | PHA.MEDREC ---
Pharmacy Consult ? Medication Reconciliation Pharmacy has completed the medication reconciliation. Spoke with patients HCP Marilee, and [facility] pharmacy. Marilee did say patient is only on levemir and has discontinued humalog.
[2023-10-18] MEDS: Furosemide 40 MG TABLET PO (09:48)
[2023-10-18] MEDS: Omeprazole 20 MG CAPSULE.DR PO (09:48)
[2023-10-18] MEDS: metFORMIN HCl 500 MG TABLET PO (09:48)
[2023-10-18] MEDS: Levothyroxine Sodium 112 MCG TABLET PO (09:48)
[2023-10-18] MEDS: FLUoxetine HCl 20 MG CAPSULE 40 MG PO (09:48)
[2023-10-18] MEDS: lisinopriL 20 MG TABLET PO (09:48)
[2023-10-18] MEDS: Docusate Sodium 100 MG CAPSULE PO (09:48)
[2023-10-18] MEDS: Acetaminophen 325 MG TABLET 975 MG PO (09:49)
[2023-10-18 11:49] LABS: Glucose, Whole Blood 218 mg/dL (60-115)
[2023-10-18] MEDS: Insulin Lispro 100 UNIT/ML 3 ML VIAL SUBCUT (11:53)
--- NOTE | 2023-10-18 14:25 | PC.NURSE ---
patient quietly eating lunch at this time, to go home via VNA services at 1600 today
--- NOTE | 2023-10-18 14:34 | MHC.CM.PN ---
PT was unable to re-evaluate patient yesterday. Per RN patient ambulating safely to/from bathroom with walker. Patient continues to decline STR, prefers home w/ services. Patient is unsure which VNA agency she is active with. CM reached out to local VNA's, unable to verify. Referral to [facility] who has accepted patient for SN and PT services. Patient and PA are agreeable to plan. DP: Home with [facility] for SN/PT, resume [facility] services. BLS transportation scheduled for 1600. RN and PA aware.
[2023-10-18 17:45] VITALS: BP 144/72; PULSE 66; RESP 16; TEMP 36.9; O2SAT 94
== END 2023-10-18 17:46 | disposition still patient (30) ==
PROVIDERS: Emergency Provider Emergency Medicine; PCP Family Medicine
DX: R53.1 Weakness (principal); R07.81 Pleurodynia; E11.9 Type 2 diabetes mellitus without complications; Z91.81 History of falling
CPT/HCPCS: 36415; 70450; 71101; 72125; 80053; 81001; 82550; 82947; 84484; 85025; 93005; 97162; 99285

== ENCOUNTER → 2023-10-17 03:41 | Outpatient (BNV) | payer MEDICARE, SELFPAY | PROVIDERS: Emergency Provider Emergency Medicine; Visit Provider Internal Medicine Cardiovascular Disease | DX: R53.1 Weakness (principal) | CPT/HCPCS: 93010 ==

== ENCOUNTER 2024-03-01 18:57 | Emergency (ER) | payer MEDICARE, MEDICAID, SELFPAY ==
--- NOTE | ~2024-03-01 | XR_ITS ---
EXAMINATION: XR HIP, RIGHT CLINICAL INFORMATION: Fall COMPARISON: 10/02/2023 TECHNIQUE: Two views of the right hip. FINDINGS: No acute fracture or dislocation. Moderate degenerative changes of the right hip joint with joint space narrowing and subchondral cystic change. Partially visualized degenerative changes of the left hip. XR/XR hip RT w PEL1V IMPRESSION: No acute fracture or dislocation. Moderate degenerative changes of the right hip joint.
--- NOTE | ~2024-03-01 | CT_ITS ---
EXAMINATION: CT HIP WITHOUT CONTRAST, RIGHT CLINICAL INFORMATION: Fall. Hip pain. Question occult fracture. COMPARISON: Radiographs of the right hip from 03/01/2024 TECHNIQUE: Multidetector volumetric imaging was obtained through the right hip without contrast material. Multiplanar reformatted images were submitted in coronal and sagittal planes. This CT examination was performed using dose optimization techniques as appropriate, variously including the following: *Automated exposure control *Adjustment of mA and/or kV according to patient size (this includes techniques or standardized protocols for targeted exams where dose is matched to indication/reason for exam; i.e. extremities or head) *Use of iterative reconstruction technique DLP: 230 mGy-cm FINDINGS: There is a comminuted greater trochanteric fracture with medial displacement of the fragments up to 0.9 cm. No appreciable intertrochanteric or subtrochanteric extension. Mild osteoarthritis is present in the right hip with marginal osteophytes and mild joint space narrowing. Moderate osteoarthritis at the pubic symphysis and more mild osteoarthritis in the right SI joint. There is soft tissue swelling and subcutaneous edema around the trochanteric fracture. No joint effusion. Musculature is unremarkable. Diverticulosis is present in the sigmoid colon. No acute findings in the pelvis. Atherosclerotic calcifications are present in the iliac and femoral arteries. CT/CT hip RT wo IV con IMPRESSION: Comminuted, mildly displaced right greater trochanteric fracture. No appreciable intertrochanteric extension.
--- NOTE | ~2024-03-01 | XR_ITS ---
EXAMINATION: XR KNEE, RIGHT CLINICAL INFORMATION: Trauma. COMPARISON: None available. TECHNIQUE: Two views of the right knee. FINDINGS: No fracture or dislocation. Moderate degenerative osteoarthritis of the medial and patellofemoral compartments with joint space narrowing and marginal osteophytes. No osseous erosions. No chondrocalcinosis. No joint effusion. Extensive vascular calcifications. XR/XR knee RT 2V IMPRESSION: No acute fracture or malalignment. Moderate degenerative osteoarthritis.
[2024-03-01 19:05] VITALS: BP 148/80; BP 170/84; PULSE 102; PULSE 99; RESP 16; TEMP 36.8; O2SAT 93; BMI 31.7
--- NOTE | 2024-03-01 19:11 | ECG_ITS ---
Test Reason : FALL Blood Pressure : / mmHG Vent. Rate : 098 BPM Atrial Rate : 098 BPM P-R Int : 156 ms QRS Dur : 094 ms QT Int : 386 ms P-R-T Axes : 075 077 051 degrees QTc Int : 492 ms Normal sinus rhythm Prolonged QT Abnormal ECG When compared with ECG of 17-OCT-2023 04:15, No significant change was found Referred By: Rob Ledesma Electronically Signed By:ULISES PATEL
--- NOTE | 2024-03-01 19:12 | ED_ITS ---
HPI - Fall General Chief Complaint: Fall Stated Complaint: FALL, R HIP/BACK PAIN Time Seen by Provider: 03/01/24 18:59 Source: patient Mode of arrival: EMS Limitations: no limitations History of Present Illness HPI Narrative: This is 83 years old female who report a fall about 1 pm o'clock trying to put a dose here in the floor, chief complaint right hip pain right thigh pain. Denies any chest pain shortness of breath. No syncope MD complaint: fall Onset (ago): hour(s) (6) Fall from: standing Fall witnessed: no Place fall occurred: home Loss of consciousness: none Prolonged down time: no Symptoms prior to fall: none Context: tripped/slipped Severity: moderate Related Data Home Medications ?Medication ?Instructions ?Recorded ?Confirmed lisinopril 2.5 mg tablet 20 mg PO DAILY 08/28/23 10/18/23 aspirin 81 mg chewable tablet 81 mg PO DAILY 10/18/23 10/18/23 bupropion HCl 200 mg tablet,12 hr 200 mg PO BID 10/18/23 10/18/23 sustained-release furosemide 40 mg tablet 40 mg PO DAILY 10/18/23 10/18/23 insulin detemir U-100 100 unit/mL 66 unit subcut BEDTIME 10/18/23 10/18/23 (3 mL) subcutaneous pen (Levemir FlexPen) levothyroxine 112 mcg tablet 112 mcg PO DAILY 10/18/23 10/18/23 metformin 500 mg tablet 500 mg PO BID 10/18/23 10/18/23 tramadol 50 mg tablet 50 mg PO Q6H PRN Pain (Scale Score 10/18/23 10/18/23 7-10) Previous Rx's ?Medication ?Instructions ?Recorded atorvastatin 10 mg tablet 10 mg PO BEDTIME #30 tabs 12/25/22 fluoxetine 40 mg capsule 40 mg PO DAILY #0 caps 12/25/22 omeprazole 20 mg capsule,delayed 20 mg PO DAILY@0630 #0 caps 12/25/22 release Allergies Allergy/AdvReac Type Severity Reaction Status Date / Time bee pollen [BEE STINGS] Allergy Unknown UNKNOWN Verified 03/01/24 19:08 morphine [MORPHINE] Allergy Unknown UNKNOWN Verified 03/01/24 19:08 Penicillins [PENICILLINS] Allergy Unknown UNKNOWN Verified 03/01/24 19:08 Review of Systems 2 ENT: Reports system reviewed and no additional complaints, except as documented Cardiovascular: Cardiovascular: Reports no additional cardiovascular complaints Musculoskeletal: Musculoskeletal: Reports no additional musculoskeletal complaints PMFSH Past Medical History Attestation statement: The following information was validated with the patient. Medical History Diabetes MDD (major depressive disorder), recurrent episode, moderate Social History Social History Household Members: None Housing: Apartment Do you presently have visiting nurse or other home services: Yes Alcohol intake: former Comment: Red wrist band on. Patient Tobacco Use Status: Never used Tobacco e-Cigarette/Vaping Use: Never Used Advance Directives: Yes Advance Directives on File: Yes Advance Directives Date on File: 10/19/23 service: No Sexual orientation: Straight/Heterosexual Physical Exam 2 Vital Signs: Vital Signs: Last Vital Signs Temp 98.3 F 03/01/24 19:05 Pulse 99 03/01/24 19:05 Resp 16 03/01/24 19:05 BP 148/80 H 03/01/24 19:05 Pulse Ox 93 03/01/24 19:05 O2 Del Method Room Air 03/01/24 19:05 BMI result Body Mass Index 31.7 Const: General: cooperative Orientation/consciousness: oriented to person and patient oriented x3 HEENT: Head: Yes normal to inspection Ears: hearing grossly normal bilaterally General nose exam: Normal external nose present Mouth: Normal oral and palatal mucosa present Throat: Yes posterior oropharynx normal Neck: Neck: Yes normal visual inspection Chest: Chest palpation & inspection: normal inspection of the chest Resp: Effort & Inspection: normal respiratory effort Auscultation: clear to auscultation bilaterally Cardio: Jugular venous distension: no JVD Rate: regular rate Rhythm: r egular rhythm GI: Inspection: Yes normal to inspection Palpation (GI): Soft to palpation Skin: General skin exam: no rashes or lesions noted Lesions: no lesions Wounds: no wounds Neuro: General: oriented to person and patient oriented x3 Cranial nerves: Yes CN's II-XII intact bilaterally Extrem: Other: Tenderness in the right hip General: Yes normal to inspection and Yes full ROM Course Reevaluation(s) Reevaluation #1: I tried to ambulate the pt and she was unable to ambulate safely will pace under ed obs,will sign out to Dr Humphrey Time: 20:46 Medications Administered Discontinued Medications Generic Name Dose Route Start Last Admin Trade Name Deep PRN Reason Stop Dose Admin Acetaminophen 975 mg 03/01/24 19:04 03/01/24 20:10 Acetaminophen 325 Mg Tablet PO 03/01/24 19:05 975 mg ONCE ONE Administration Medical Decision Making Medical Decision Making [facility] Narrative: Patient presented after a fall complaining of right hip pain we will obtain imaging of the right hip and pelvis Differential Diagnosis Differential Diagnoses: The differential diagnosis associated with the presentation includes Fracture/dislocation/contusion hip Lab Data [facility] Lab Attestation statement: I reviewed the patient's lab results. 03/01/24 19:28 03/01/24 19:28 Labs: Lab Results 03/01/24 Range/Units 19:28 WBC 18.1 H (4.8-10.8) X10*3/uL RBC 4.67 (4.20-5.50) X10*6/uL Hgb 11.5 L (12.0-16.0) g/dl Hct 36.1 L (37.0-47.0) % MCV 77.3 L (80.0-98.0) fL MCH 24.6 L (27.0-33.0) pg MCHC 31.9 (31.0-35.0) g/dl RDW 15.8 (11.0-16.0) % Plt Count 587 H (160-400) X10*3/uL MPV 9.1 L (9.4-12.3) fL Immature Gran % (Auto) 0.6 H (0.0-0.4) % Neut % (Auto) 79.6 H (45-73) % Lymph % (Auto) 10.7 L (20-40) % [place] % (Auto) 6.9 (2-11) % Eos % (Auto) 1.8 (0-4) % Baso % (Auto) 0.4 (0-2) % Lymph # (Auto) 1.9 (1.2-4.9) X10*3/uL [place] # (Auto) 1.2 (0.1-1.2) X10*3/uL Eos # (Auto) 0.3 (0.0-0.4) X10*3/uL Baso # (Auto) 0.1 (0.0-0.2) X10*3/uL Abs Immat Gran (auto) 0.10 H (0.00-0.03) X10*3/uL Absolute Neuts (auto) 14.4 H (2.0-8.3) x10*3/uL Absolute Nucleated RBC 0.000 (0.0-0.012) X10*3/uL Nucleated RBC % (auto) 0.0 (0.0-0.2) /100WBC Sodium 139 (135-145) mmol/L Potassium 3.6 (3.3-5.1) mmol/L Chloride 103 (96-108) mmol/L Carbon Dioxide 25 (22-29) mmol/L Anion Gap 15 (12-20) BUN 24 H (9-16) mg/dL Creatinine 1.19 (0.5-1.4) mg/dL Estim Creat Clear Calc 31.8 Estimated GFR 44 Random Glucose 186 H (60-115) mg/dL Calcium 9.8 (8.4-10.2) mg/dL Total Bilirubin 0.2 (0.0-1.0) mg/dL AST 18 (5-31) U/L ALT 16 (0-31) U/L Alkaline Phosphatase 107 (39-117) U/L Troponin I High Sens < 2.7 (<3.5-17.0) ng/L Total Protein 7.0 (6.5-8.0) g/dL Albumin 3.6 (3.5-5.0) g/dL Independent Interpretation I performed an independent interpretation of an: Plain X-Ray Interpretation: xray reviwed by me no fx Radiology Impression Discussion of test interpretation with radiology: I have reviewed the radiologist's reading. Discharge Plan Discharge Clinical Impression: Fall in elderly patient Fall Qualifiers: Encounter type: initial encounter Qualified Code(s): W19.XXXA - Unspecified fall, initial encounter Contusion of hip, right Qualifiers: Encounter type: initial encounter Qualified Code(s): S70.01XA - Contusion of right hip, initial encounter Patient Disposition: Still a Patient Prescriptions: No Action lisinopril 2.5 mg tablet 20 mg PO DAILY furosemide 40 mg tablet 40 mg PO DAILY levothyroxine 112 mcg tablet 112 mcg PO DAILY metformin 500 mg tablet 500 mg PO BID aspirin 81 mg Tablet,Chewable 81 mg PO DAILY bupropion HCl 200 mg tablet sustained-release 12 hr 200 mg PO BID Levemir FlexPen 100 unit/mL (3 mL) insulin pen 66 unit subcut BEDTIME tramadol 50 mg tablet 50 mg PO Q6H PRN (Reason: Pain (Scale Score 7-10)) fluoxetine 40 mg capsule 40 mg PO DAILY Qty: 0 0RF omeprazole 20 mg Capsule,Delayed Release(Dr/Ec) 20 mg PO DAILY@0630 Qty: 0 0RF atorvastatin 10 mg Tablet 10 mg PO BEDTIME Qty: 30 0RF Print Language: Upper Sorbian
[2024-03-01 19:33] LABS: MANUAL DIFF FLAG NO
[2024-03-01 19:34] LABS: Basophils Absolute Auto 0.1 X10*3/uL (0.0-0.2); Basophils Percent Auto 0.4 % (0-2); Eosinophils Absolute Auto 0.3 X10*3/uL (0.0-0.4); Eosinophils Percent Auto 1.8 % (0-4); Hematocrit 36.1 % (37.0-47.0); Hemoglobin 11.5 g/dl (12.0-16.0); Imm Gran Pct Auto 0.6 % (0.0-0.4); Lymphocytes Absolute Auto 1.9 X10*3/uL (1.2-4.9); Lymphocytes Percent Auto 10.7 % (20-40); Mean Corpuscular HGB Conc 31.9 g/dl (31.0-35.0); Mean Corpuscular Hemoglobin 24.6 pg (27.0-33.0); Mean Corpuscular Volume 77.3 fL (80.0-98.0); Mean Platelet Volume 9.1 fL (9.4-12.3); Monocytes Absolute Auto 1.2 X10*3/uL (0.1-1.2); Monocytes Percent Auto 6.9 % (2-11); Neutrophils Absolute Auto 14.4 x10*3/uL (2.0-8.3); Neutrophils Percent Auto 79.6 % (45-73); Platelet Count 587 X10*3/uL (160-400); Red Blood Count 4.67 X10*6/uL (4.20-5.50); Red Cell Distribution Width 15.8 % (11.0-16.0); White Blood Count 18.1 X10*3/uL (4.8-10.8)
[2024-03-01 19:49] LABS: Alanine Aminotransferase 16 U/L (0-31); Albumin Level 3.6 g/dL (3.5-5.0); Alkaline Phosphatase 107 U/L (39-117); Anion Gap 15 (12-20); Aspartate Amino Transferase 18 U/L (5-31); Bilirubin Total 0.2 mg/dL (0.0-1.0); Blood Urea Nitrogen 24 mg/dL (9-16); Calcium 9.8 mg/dL (8.4-10.2); Carbon Dioxide 25 mmol/L (22-29); Chloride 103 mmol/L (96-108); Creatinine Clr Calc Pharmacy 31.8; Estimated Glomerular Filt Rate 44; Glucose Random 186 mg/dL (60-115); Potassium 3.6 mmol/L (3.3-5.1); Sodium 139 mmol/L (135-145)
[2024-03-01 19:59] LABS: Troponin-I High Sensitivity < 2.7 ng/L (<3.5-17.0)
[2024-03-01] MEDS: Acetaminophen 325 MG TABLET 975 MG PO (20:10)
--- NOTE | 2024-03-01 20:10 | PC.NURSE ---
MD aware of pt pain 04/28. pt in agreement to take tylenol at this time and reasses.
[2024-03-01] MEDS: traMADoL HCL 50 MG TABLET PO (20:44)
--- NOTE | 2024-03-01 20:50 | PC.NURSE ---
attempt to ambulate pt with MD at bedside. pt has unsteady gait and reports dizziness while ambulating. OLAF Olmstead made aware by MD; Aysha RN at bedside now.
--- NOTE | 2024-03-01 21:20 | MHC.CM.ED ---
CM met with patient at the request of Dr. Ledesma. Pt lives alone in elderly housing. Uses a walker. 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 She has a cat. Her PCP was verified. Her HCP is on record. HCP verified Dustin Jules ([facility]) [phone]. Pt fell picking up groceries. C/O hip/leg pain. Failed ambulation trial. Pt agreeable to PT evaluation in the morning. Pt wants home PT, not PT in a facility. Pt is pretty definite in not wanting to go to PT. Pt does not have a qualifying stay. Will hold on placing referrals at this time. CM will follow for discharge planning.
[2024-03-01 22:09] VITALS: BP 155/78; PULSE 87; RESP 14; TEMP 36.7; O2SAT 95
--- NOTE | 2024-03-01 22:27 | MHC.EDTECH ---
at this time this tech assisted the RN to help pt onto the commode to void. After assisting the pt back into her bed she was placed on a purewick and given red non-slip socks for safety. Commode removed from room, and pt educated on the purewick and how it works, as well as the need for a bedpan for bowel movements related to the pt's newly experienced dizziness and weakness. Warm blanket given and call light given for safety. Lights were dimmed and pt attempting to rest.
--- NOTE | 2024-03-01 23:50 | PC.NURSE ---
med rec completed with patient. aware.
--- NOTE | 2024-03-01 23:51 | PC.NURSE ---
pt reports 8/10 pain at this time refusing any pain meds and states she is comfortable.
--- NOTE | 2024-03-02 00:30 | MHC.EDTECH ---
PATIENT JUST CAME OVER TO OVERFLOW FROM THE MAIN EMERGENCY ROOM PT WAS MOVED TO HOSPITAL BED ,,PATIENT WAS CHANGE INTO GOWN ,PURE WICK IN PLACE ,PT ALERT AND ORIENTED ,BLOOD SUGAR CHECK ,PT WAS OFFER FLUIDS ,HAD SIPS OF ELVIS COLE ,PT BELONGINGS LIST DONE ,CALL SUBRAMANIAN WITHIN PT REACH ,PLAN OF CARE CONTINUE .
[2024-03-02 01:09] LABS: Glucose, Whole Blood 124 mg/dL (60-115)
[2024-03-02 06:33] VITALS: BP 156/72; PULSE 67; RESP 16; TEMP 36.9; O2SAT 97
--- NOTE | 2024-03-02 06:34 | MHC.EDTECH ---
Patient slept all night 0600 rounding done ,vitals taken ,Patient was change and reposition for comfort ,550 ml empty from purewick ,Patient watching television ,call rueda within Pt reach .
[2024-03-02] MEDS: Omeprazole 20 MG CAPSULE.DR PO (06:47)
[2024-03-02 07:20] VITALS: BP 156/72; PULSE 67; O2SAT 97
[2024-03-02] MEDS: buPROPion HCl XL 150 MG TAB.ER.24H 450 MG PO (08:27)
[2024-03-02] MEDS: Aspirin 81 MG TAB.CHEW PO (08:28)
[2024-03-02] MEDS: Furosemide 40 MG TABLET PO (08:28)
[2024-03-02] MEDS: FLUoxetine HCl 20 MG CAPSULE 40 MG PO (08:28)
--- NOTE | 2024-03-02 09:07 | MHC.EDTECH ---
pt was given supplies to do oral hygiene and ate 25% breakfast
--- NOTE | 2024-03-02 09:40 | PHA.MEDREC ---
Addendum entered by Sandy Little RPh 03/02/24 10:26: Med rec has been reviewed. Original Note: Pharmacy Consult ? Medication Reconciliation Pharmacy Abbi reviewed Med Rec completed by Nurse. Claims matched what nurse inputted on med list.
[2024-03-02] MEDS: lisinopriL 40 MG TABLET PO (10:17)
--- NOTE | 2024-03-02 10:30 | MHC.EDTECH ---
pt was assisted in washing up
--- NOTE | 2024-03-02 11:37 | MHC.CM.ED ---
Patient remains in ER overflow. Physical therapy eval completed. Home services are recommended. Received notification from [facility]. Patient is active with their agency. Receives [facility] twice a day for insulin. They are able to add physical therapy. Met with patient in regards to discharge planning. Patient agreeable to d/c home. Gave permission for T/W to update patient's grandson on d/c plan. Spoke with Dustin via telephone at [phone]. Dustin aware patient will d/c home. Juanito HERRERA booked for 1pm. Med [facility] with chart. Patient, Kita RN and Meron WILSON aware. Continue to monitor for d/c needs.
--- NOTE | 2024-03-02 12:43 | MHC.EDTECH ---
pt ate 0% lunch
[2024-03-02 13:29] VITALS: BP 128/84; PULSE 110; RESP 20; TEMP 37.1; O2SAT 97
== END 2024-03-02 13:30 | disposition home or self-care (01) ==
PROVIDERS: Emergency Medicine; Emergency Provider Emergency Medicine; PCP Nurse Practitioner Family
DX: S70.01XA Contusion of right hip, initial encounter (principal); W18.39XA Other fall on same level, initial encounter; E11.9 Type 2 diabetes mellitus without complications; Y93.89 Activity, other specified; Y92.039 Unspecified place in apartment as the place of occurrence of the external cause; Y99.9 Unspecified external cause status; Z79.899 Other long term (current) drug therapy; Z79.84 Long term (current) use of oral hypoglycemic drugs; Z79.82 Long term (current) use of aspirin
CPT/HCPCS: 36415; 73502; 73560; 73700; 80053; 82947; 84484; 85025; 93005; 97162; 99285

== ENCOUNTER → 2024-03-01 19:11 | Outpatient (BNV) | payer MEDICARE, SELFPAY | PROVIDERS: Emergency Provider Emergency Medicine; PCP Nurse Practitioner Family; Visit Provider Internal Medicine | DX: R94.31 Abnormal electrocardiogram [ECG] [EKG] (principal) | CPT/HCPCS: 93010 ==

== ENCOUNTER 2024-03-02 16:59 | Emergency (ER) | payer MEDICARE, MEDICAID, SELFPAY ==
--- NOTE | ~2024-03-02 | XR_ITS ---
EXAMINATION: XR HIP, RIGHT CLINICAL INFORMATION: Fall COMPARISON: None available. TECHNIQUE: Two views of the right hip. FINDINGS: The mildly displaced greater trochanteric fractures better appreciated on the prior cross-sectional imaging. Moderate degenerative changes in the hip joint. The femoral head appears well-positioned within the acetabulum. No displaced pelvic fracture visualized. Degenerative changes in the spine. Vascular calcifications. XR/XR hip RT w PEL1V IMPRESSION: Mildly displaced greater trochanteric fractures better appreciated on the prior cross-sectional imaging.
[2024-03-02 17:11] VITALS: BP 117/50; BP 160/90; PULSE 90; PULSE 99; RESP 14; TEMP 37.1; O2SAT 95; BMI 30.9
[2024-03-02 17:17] VITALS: BP 117/50; PULSE 99; RESP 14; TEMP 37.1; O2SAT 95
--- NOTE | 2024-03-02 17:23 | PC.NURSE ---
Pt coes to ED today via EMS for fall. Pt seen here yesterday for fall with R hip pain. Today while Pt was getting up to answer the door, Pt fell again and now has increased R hip pain. C/o nausea and headache. Currently on thinners, per EMS.
--- NOTE | 2024-03-02 19:14 | PC.NURSE ---
this rn assumed care of pt, pt resting in stretcher, denies hip pain at this time. purewick placed for comfort.
[2024-03-02 19:15] VITALS: BP 178/91; PULSE 103; RESP 16; TEMP 36.9; O2SAT 93
--- NOTE | 2024-03-02 20:49 | MHC.CM.ED ---
CMmet with patient at the request of Dr. Everett. A&Ox3. Sleepy. States she fell again today because she was walking in her socks. Pt has had 2 falls in 24 hours. Pt lives alone in elderly housing. She uses a walker. She has MOW and a DEBUBBLIZER from [facility] 5 days/wk 3-4 hours a day. Pt is active with [facility] for long-term BID- she gets insulin. Pt is legally blind. Pt was discharged today to home with home PT. Hip CT yesterday showed a closed fx greater trochanter on the right. Hip xray today shows greater trochanter fractures on the right. Pt has increased pain with movement. Pt is now agreeable to PT evaluation with rehab in a facility. Pt does not have a qualifying stay. Will place referrals with acute rehab. Will alert [facility] of patient being in the ED. HCP is on file. HCP/grandflori Jules ([phone]). Pt cannot remember her PCP. CM will follow for discharge planning.
[2024-03-02 21:32] VITALS: BP 167/88; PULSE 99; RESP 20; TEMP 36.9; O2SAT 97
[2024-03-03] VITALS (8 sets, daily range): BP systolic 132–155; BP diastolic 74–86; PULSE 78–107; RESP 16–20; TEMP 36.6–37.2; O2SAT 93–98
--- NOTE | 2024-03-03 00:13 | ED.FALL ---
HPI - Fall General Chief Complaint: Fall Stated Complaint: fall, r-hip pain. Was here yesterday for fall. 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 with frequent falls walks with walker was seen here on 03/01 after mechanical fall with right greater trochanteric fracture refused rehab wanted to go home with physical therapy at home comes back as while walking in her bedroom patient lost balance and fell landed on her right hip no head injury no loss of consciousness complaining of increased pain in the right hip patient is still refusing to go to rehab at this time Related Data Home Medications ?Medication ?Instructions ?Recorded ?Confirmed aspirin 81 mg chewable tablet 81 mg PO DAILY 10/18/23 03/01/24 bupropion HCl 200 mg tablet,12 hr 200 mg PO BID 10/18/23 03/01/24 sustained-release furosemide 40 mg tablet 40 mg PO DAILY 10/18/23 03/01/24 levothyroxine 112 mcg tablet 112 mcg PO DAILY 10/18/23 03/01/24 lisinopril 40 mg tablet 40 mg PO DAILY 03/01/24 03/01/24 Previous Rx's ?Medication ?Instructions ?Recorded atorvastatin 10 mg tablet 10 mg PO BEDTIME #30 tabs 12/25/22 fluoxetine 40 mg capsule 40 mg PO DAILY #0 caps 12/25/22 omeprazole 20 mg capsule,delayed 20 mg PO DAILY@0630 #0 caps 12/25/22 release Allergies Allergy/AdvReac Type Severity Reaction Status Date / Time bee pollen [BEE STINGS] Allergy Unknown UNKNOWN Verified 03/02/24 17:13 morphine [MORPHINE] Allergy Unknown UNKNOWN Verified 03/02/24 17:13 Penicillins [PENICILLINS] Allergy Unknown UNKNOWN Verified 03/02/24 17:13 Review of Systems Review of Systems: Yes all other systems are reviewed and are negative PMFSH Past Medical History Medical History Diabetes MDD (major depressive disorder), recurrent episode, moderate Social History Social History Household Members: None Housing: Apartment Do you presently have visiting nurse or other home services: Yes Alcohol intake: former Comment: Red wrist band on. Patient Tobacco Use Status: Never used Tobacco Smoked in Last 30 Days: No e-Cigarette/Vaping Use: Never Used Use of substances other than those prescribed or required for medical reasons: No Advance Directives: Yes Advance Directives on File: Yes Advance Directives Date on File: 10/19/23 Do you have a plan to hurt others: No Plan service: No Sexual orientation: Straight/Heterosexual Physical Exam Vital Signs: Vital Signs: Last Vital Signs Temp 98.4 F 03/02/24 21:32 Pulse 99 03/02/24 21:32 Resp 20 03/02/24 21:32 BP 167/88 H 03/02/24 21:32 Pulse Ox 97 03/02/24 21:32 O2 Del Method Room Air 03/02/24 21:32 BMI result Body Mass Index 30.9 Appearance: Alert. Oriented X3. No acute distress. Eyes: PERRLA, No Nystagmus ENT: Pharynx normal. Oral Mucosa moist AT NC Neck: Normal inspection. Neck supple. No midline tenderness CVS: Normal heart rate and rhythm. Pulses normal. Respiratory: No respiratory distress. Equal air entry bilateral, no wheezing/rales/rhonchi Abdomen: Soft and nontender. Bowel sounds are present, no mass palpable, no CVA tenderness Skin: Skin warm and dry. Normal skin color. Normal skin turgor. Extremities: No lower extremity edema. No calf tenderness tenderness right greater trochanteric area no deformity neurovascular intact Neuro: Oriented X 3. No motor deficit. No sensory deficit.No cerebellar signs , cranial nerves II-XII intact Medical Decision Making Medical Decision Making [facility] Narrative: Patient is legally blind secondary to glaucoma with frequent falls agreed for placement at this time x-ray showed greater trochanteric fracture no other injuries Differential Diagnosis Differential Diagnoses: The differential diagnosis associated with the presentation includes Lab Data [facility] Lab Attestation statement: I reviewed the patient's lab results. Labs: Lab Results 03/03/24 Range/Units 00:46 Urine Color Yellow Urine Appearance Clear Urine pH 6.5 (5.0-9.0) Ur Specific [place] 1.015 (1.005-1.025) Urine Protein 100 (2+) H (Neg-Trace) mg/dL Urine Glucose (UA) Negative (Negative) mg/dL Urine Ketones Negative (Negative) mg/dL Urine Blood Negative (Negative) Urine Nitrite Negative (Negative) Ur Leukocyte Esterase Negative (Negative) Urine RBC 0-2 (0-2) /HPF Urine WBC 0-5 (0-5) /HPF Ur Squamous Epith Cells 0-2 (0-2) /HPF Urine Bacteria None Seen (None Seen) Hyaline Casts 3-5 (0-2) /LPF Independent Interpretation I performed an independent interpretation of an: Plain X-Ray Radiology Impression Discussion of test interpretation with radiology: I have reviewed the radiologist's reading. Radiologist Impression: [address] [address] XRay Report Signed Patient: Vira Jules MR#: [id number] : 1940 Acct:[id number] Age/Sex: 83 / F ADM Date: 03/02/24 Loc: .ED Attending Dr: Ordering Physician: Onofre Everett MD Date of Service: 03/02/24 Procedure(s): XR hip RT w PEL1V Accession Number(s): [id number] cc: Physician,Unknown ; Onofre Everett MD~ EXAMINATION: XR HIP, RIGHT CLINICAL INFORMATION: Fall COMPARISON: None available. TECHNIQUE: Two views of the right hip. FINDINGS: The mildly displaced greater trochanteric fractures better appreciated on the prior cross-sectional imaging. Moderate degenerative changes in the hip joint. The femoral head appears well-positioned within the acetabulum. No displaced pelvic fracture visualized. Degenerative changes in the spine. Vascular calcifications. XR/XR hip RT w PEL1V IMPRESSION: Mildly displaced greater trochanteric fractures better appreciated on the prior cross-sectional imaging. Discharge Plan Discharge Clinical Impression: Frequent falls, Trochanteric fracture of right femur Patient Disposition: Still a Patient Prescriptions: No Action furosemide 40 mg tablet 40 mg PO DAILY levothyroxine 112 mcg tablet 112 mcg PO DAILY aspirin 81 mg Tablet,Chewable 81 mg PO DAILY bupropion HCl 200 mg tablet sustained-release 12 hr 200 mg PO BID fluoxetine 40 mg capsule 40 mg PO DAILY Qty: 0 0RF omeprazole 20 mg Capsule,Delayed Release(Dr/Ec) 20 mg PO DAILY@0630 Qty: 0 0RF atorvastatin 10 mg Tablet 10 mg PO BEDTIME Qty: 30 0RF lisinopril 40 mg tablet 40 mg PO DAILY Print Language: Iranian
--- NOTE | 2024-03-03 00:51 | PC.NURSE ---
pt straight cath per order at this time, pt tolerated well. 300ml urine voided. urine sample obtained and sent.
[2024-03-03 00:54] LABS: Appearance Urine Clear; Color Urine Yellow; Glucose Urine UA Negative (Negative); Leukocyte Esterase Urine Negative (Negative); Nitrite Urine Negative (Negative); PH 6.5 (5.0-9.0); Specific Gravity - Urine 1.015 (1.005-1.025); UMIC TRIGGER UACC YES; Urine Blood Negative (Negative); Urine Ketones Negative (Negative); Urine Protein 100 (2+) mg/dL (Neg-Trace)
[2024-03-03 01:07] LABS: Bacteria Urine None Seen (None Seen); RBC Urine 0-2 /HPF (0-2); Squamous Epithelial Cell Urine 0-2 /HPF (0-2); WBC Urine 0-5 /HPF (0-5)
[2024-03-03] MEDS: Ondansetron ODT 4 MG TAB.RAPDIS TRANSLINGU (06:29)
--- NOTE | 2024-03-03 08:34 | PC.NURSE ---
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
--- NOTE | 2024-03-03 08:43 | MHC.CM.ED ---
Patient remains in ER. Physical therapy eval completed. Rehab is recommended. Clinical updates sent to all 3 acute rehabs. Continue to monitor for d/c needs.
[2024-03-03 09:25] LABS: COVID-19 Test Negative (Negative); IDNOW Serial# 08D9AD1C
[2024-03-03] MEDS: traMADoL HCL 50 MG TABLET PO (10:42)
--- NOTE | 2024-03-03 10:42 | MHC.EDTECH ---
This tech assisted patient to bedpan. Pt was able to void.
[2024-03-03] MEDS: Acetaminophen 325 MG TABLET 650 MG PO (10:43)
--- NOTE | 2024-03-03 11:05 | PHA.MEDREC ---
Pharmacy Consult ? Medication Reconciliation Pharmacy has completed the medication reconciliation. Spoke with pt to confirm meds.
--- NOTE | 2024-03-03 11:07 | MHC.CM.ED ---
Addendum entered by Anupama Garcia 03/03/24 12:45: Received notification from Dmitri Puri that patient is actually weight bearing as tolerated. Not non-weight bearing. Original Note: Patient had Ortho follow up appointment on 03/07. Per Dmitri Puri, patient is to be non-weight bearing on that extremity at this time. Appointment can be changed to 03/17 at 230pm. No surgery planned. It is anticipated patient will be a medical management of fracture.
--- NOTE | 2024-03-03 13:50 | MHC.CM.ED ---
[facility] is able to offer a bed but may not have a bed until tomorrow 03/04. Patient accepts bed. Continue to monitor for d/c needs.
--- NOTE | 2024-03-03 13:52 | PC.NURSE ---
Report given to overflow
--- NOTE | 2024-03-03 14:38 | PC.NURSE ---
This RN received patient from main ED, she was able to stand and pivot to the new bed with 2ast. Pt currently reporting she has no pain at this time. Vitals obtained and documented. Pt has personal belongings at bedside. Call rueda within reach, bed alarm on.
[2024-03-03] MEDS: Furosemide 40 MG TABLET PO (16:00)
[2024-03-03] MEDS: Omeprazole 20 MG CAPSULE.DR PO (16:00)
[2024-03-03] MEDS: FLUoxetine HCl 20 MG CAPSULE 40 MG PO (16:00)
[2024-03-03] MEDS: lisinopriL 40 MG TABLET PO (16:01)
[2024-03-03] MEDS: Levothyroxine Sodium 112 MCG TABLET PO (16:01)
[2024-03-03] MEDS: OLANZapine 10 MG TABLET PO (16:01)
[2024-03-03] MEDS: Aspirin 81 MG TAB.CHEW PO (16:01)
--- NOTE | 2024-03-03 16:08 | PC.NURSE ---
Patient attempting to get out of bed, bed alarm going off, pt then started yelling at this RN that she was going home, this RN attempted to provide emotional support, security sat down with patient and also talked with her. Provider/CM aware, PO zyprexa given per SEP. Pt is remaining in bed at this time, but continues to hallucinate people that are not there and continues to have conversations with them. Bed alarm remains on, call rueda within reach.
--- NOTE | 2024-03-03 17:41 | MHC.EDTECH ---
pt ate 75% dinner
--- NOTE | 2024-03-03 18:08 | MHC.CM.ED ---
Addendum entered by Zuleyma Magdaleno 03/03/24 18:22: Active with [facility]. Message via [facility] that patient has acute rehab bed. Addendum entered by Zuleyma Magdaleno 03/03/24 18:17: CM called an left a message with Dustin Jules, HCP/grandson to return call for an update on his grandmother and plan of care. Original Note: CM met with patient. Pt calm and cooperative. Pt expresses desire to go home. CM has a long talk with this patient. Explained that patient fell twice in a day, and has fractures with pain, so she cannot walk well and will only fall again at home. Pt is worried that she will not go home. CM explained that the acute rehab is for 1-2 weeks and then they will probably have the visiting nurse go to her home. Pt is a bit teary, but agreeable. CM explained that I could call her grandson, Dustin and let him know what was going on. Pt is agreeable. [facility] has offered a bed. Awaiting availability. Probably 03/04.
[2024-03-03] MEDS: Atorvastatin Calcium 10 MG TABLET PO (19:37)
--- NOTE | 2024-03-04 05:29 | PC.NURSE ---
alert to self, visual and auditory hallucinations. patient talking to people, that are unseen by staff. denies pain. purewick used for voiding, patient is too weak to stand/using two assist - for safety of patient and staff recommend not to use commode. safety and comfort maintained, call rueda in reach.
[2024-03-04 06:00] VITALS: BP 141/82; PULSE 86; RESP 16; TEMP 37.1; O2SAT 93
[2024-03-04 09:30] VITALS: BP 153/62; PULSE 68; RESP 20; TEMP 36.8; O2SAT 98
--- NOTE | 2024-03-04 10:07 | MHC.EDTECH ---
this tech assumed care at 0700, pt sleeping, offered breakfast but did not want to eat or wake up, pt seems to be comfortable and remains resting. no apparent distress at this time, pt was repositioned, and checked for incontinence. all needs met at this time.
[2024-03-04] MEDS: Aspirin 81 MG TAB.CHEW PO (11:20)
[2024-03-04] MEDS: FLUoxetine HCl 20 MG CAPSULE 40 MG PO (11:22)
[2024-03-04] MEDS: Acetaminophen 325 MG TABLET 975 MG PO (11:22)
[2024-03-04] MEDS: Furosemide 40 MG TABLET PO (11:23)
[2024-03-04] MEDS: buPROPion HCl XL 300 MG TAB.ER.24H PO (11:23)
[2024-03-04] MEDS: buPROPion HCl XL 150 MG TAB.ER.24H PO (11:23)
[2024-03-04] MEDS: lisinopriL 40 MG TABLET PO (11:26)
[2024-03-04 11:30] VITALS: BP 169/79; PULSE 95; RESP 18; O2SAT 96
--- NOTE | 2024-03-04 12:03 | PC.NURSE ---
pt onfused. she awoke late (1100) which she says it later than normal. took pills without issue. With walker, pt was able to stand but was unable to take any steps.
[2024-03-04 14:00] VITALS: BP 131/73; PULSE 86; RESP 16; TEMP 36.2; O2SAT 94
--- NOTE | 2024-03-04 14:25 | MHC.CM.ED ---
Patient remains in ER overflow. Will d/c to [facility] tomorrow 03/05 at 930am. [facility] booked. Med [facility] with chart. Patient, Lisa VANESSA and Vida HEBERT aware. Continue to monitor for d/c needs.
--- NOTE | 2024-03-04 19:06 | PC.NURSE ---
This RN assumed pt care @ 1900. Pt resting quielty in bed, no signs of distress. Plan of care ongoing.
[2024-03-04] MEDS: Atorvastatin Calcium 10 MG TABLET PO (21:09)
--- NOTE | 2024-03-04 21:11 | PC.NURSE ---
Pt medicated per sep. Plan of care ongoing.
--- NOTE | 2024-03-04 21:11 | PC.NURSE ---
Pt very upset stating who's fucking medication is it. I'm no fucking nurse. Why are people so fucking loud in the morning. Pt advised it is 9pm, pt still upset believes it is the middle of the night. Plan of care ongoing.
[2024-03-04 21:24] VITALS: BP 100/52; PULSE 87; RESP 18; TEMP 36.6; O2SAT 92
[2024-03-05] MEDS: Levothyroxine Sodium 112 MCG TABLET PO (05:46)
[2024-03-05] MEDS: Omeprazole 20 MG CAPSULE.DR PO (05:46)
[2024-03-05 06:00] VITALS: BP 136/67; PULSE 94; RESP 18; TEMP 36.8; O2SAT 93
[2024-03-05] MEDS: Aspirin 81 MG TAB.CHEW PO (09:04)
[2024-03-05] MEDS: FLUoxetine HCl 20 MG CAPSULE 40 MG PO (09:04)
[2024-03-05 09:05] VITALS: BP 142/87
[2024-03-05] MEDS: Furosemide 40 MG TABLET PO (09:05)
[2024-03-05] MEDS: buPROPion HCl XL 300 MG TAB.ER.24H PO (09:07)
[2024-03-05] MEDS: buPROPion HCl XL 150 MG TAB.ER.24H PO (09:07)
--- NOTE | 2024-03-05 09:15 | MHC.CM.ED ---
Patient remains in ER overflow. Received notification that [facility] will not be able to accept patient until 1pm. [facility] changed to 1pm. Patient, Pb VANESSA and Vida HEBERT aware. Continue to monitor for d/c needs.
[2024-03-05] MEDS: Acetaminophen 325 MG TABLET 975 MG PO (09:59)
[2024-03-05] MEDS: OLANZapine 5 MG TABLET PO (10:00)
[2024-03-05 10:57] VITALS: BP 142/87
[2024-03-05] MEDS: lisinopriL 40 MG TABLET PO (10:57)
[2024-03-05 13:14] VITALS: BP 142/87; PULSE 84; RESP 18; TEMP 36.9; O2SAT 93
== END 2024-03-05 13:16 | disposition skilled nursing facility (03) ==
PROVIDERS: Physician Assistant; Emergency Provider Internal Medicine
DX: S72.91XA Unspecified fracture of right femur, initial encounter for closed fracture (principal); M25.551 Pain in right hip; R26.2 Difficulty in walking, not elsewhere classified; R10.2 Pelvic and perineal pain; R41.0 Disorientation, unspecified; X58.XXXA Exposure to other specified factors, initial encounter; Y93.89 Activity, other specified; Y92.89 Other specified places as the place of occurrence of the external cause; Y99.8 Other external cause status; Z11.52 Encounter for screening for COVID-19; Z91.81 History of falling; Z79.899 Other long term (current) drug therapy
CPT/HCPCS: 51702; 73502; 81001; 81003; 87635; 97116; 97162; 99285

== ENCOUNTER 2024-03-17 10:27 | Outpatient (REF) | payer MEDICARE, MEDICAID, SELFPAY | END 2024-03-17 10:28 | disposition home or self-care (01) | LOC: HO.HOSX 10:27 | PROVIDERS: Visit Provider Physician Assistant | DX: Z13.89 Encounter for screening for other disorder (principal) ==

== ENCOUNTER 2024-05-05 10:16 | Outpatient (REF) | payer MEDICARE, MEDICAID, SELFPAY | END 2024-05-05 10:17 | disposition home or self-care (01) | LOC: HO.HOSX 10:16 | PROVIDERS: Visit Provider Physician Assistant | DX: Z13.89 Encounter for screening for other disorder (principal) ==

== ENCOUNTER 2024-05-19 09:23 | Outpatient (REF) | payer MEDICARE, MEDICAID, SELFPAY | END 2024-05-19 09:24 | disposition home or self-care (01) | LOC: HO.HOSX 09:23 | PROVIDERS: Visit Provider Physician Assistant | DX: M25.552 Pain in left hip (principal); S72.111A Displaced fracture of greater trochanter of right femur, initial encounter for closed fracture | CPT/HCPCS: 73502; 99202 ==

== ENCOUNTER 2024-05-19 09:23 | Outpatient (AMB) | payer MEDICARE, MEDICAID, SELFPAY ==
--- NOTE | 2024-05-19 09:27 | MHC.OFFVIS ---
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 Patient had a couple falls which she lead her to injury her right hip. She is able to walk but she is worried about falling again. Patient reports her pain is a little better, but still has discomfort. 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 The patient has a history of multiple falls. The patient presented to the ED on 03/01/24 for right hip pain status post a mechanical fall when attempting to put a dose on the floor. The patient refused rehab and was discharged with home physical therapy at that time. She returned to the ED on 03/02/24 status post another fall. She lost her balance and landed on her right hip when ambulating in her bedroom. X-rays of the right hip were obtained. She was discharged to [facility] for acute rehab. While in the office today, the patient presents today in a wheel chair. She had multiple falls, resulting in a right hip fracture. She is able to ambulate; however, she is worried about falling again. She reports improved right hip pain, but still she has discomfort. [facility] Medical History Diabetes MDD (major depressive disorder), recurrent episode, moderate Social History Household Members: None Housing: Apartment Do you presently have visiting nurse or other home services: Yes Alcohol intake: former Comment: Red wrist band on. Patient Tobacco Use Status: Never used Tobacco e-Cigarette/Vaping Use: Never Used Advance Directives Date on File: 10/19/23 service: No Sexual orientation: Straight/Heterosexual Review of Systems Const All systems reviewed & are unremarkable except as noted in HPI and below Physical Exam Const General: cooperative and no acute distress Orientation/consciousness: patient oriented x3 Resp Effort & Inspection: normal respiratory effort and able to speak in complete sentences Cardio Peripheral pulses: Peripheral pulses 2+ throughout Skin General skin exam: no rashes or lesions noted Neuro General: patient oriented x3 Extrem Other: Right hip: Normal to inspection. No ecchymosis, erythema, or edema. Full hip ROM in all planes. No tenderness to palpation over the greater trochanteric bursa. 5/5 strength with resisted hip flexion, knee extension, abduction, and abduction. Able to perform a straight leg raise. NVI. Assessment & Plan Assessment & Plan (1) Closed fracture of greater trochanter of right femur: Code(s): S72.111A - Displaced fracture of greater trochanter of right femur, initial encounter for closed fracture Category: Medical Plan Ms. Jules is a 84-year-old female who presents in the office today, as a new patient, for an evaluation of right trochanter femur fracture. The patient has a history of multiple falls. The patient presented to the ED on 03/01/24 for right hip pain status post a mechanical fall when attempting to put a dose on the floor. The patient refused rehab and was discharged with home physical therapy at that time. She returned to the ED on 03/02/24 status post another fall. She lost her balance and landed on her right hip when ambulating in her bedroom. X-rays of the right hip were obtained. She was discharged to [facility] for acute rehab. While in the office today, the patient presents today in a wheel chair. She had multiple falls, resulting in a right hip fracture. She is able to ambulate; however, she is worried about falling again. She reports improved right hip pain, but still she has discomfort. I have placed an order for home physical therapy, as the patient is homebound and unable to drive. I would like PT to work on glute, core and quad strengthening as well as gait training with the use of a front wheeled walker. She mentions she does have a walker at home that she can use. She will follow up with a telehealth appointment to update on her progress with physical therapy. Follow-up will be in 6 weeks via telephone, or sooner if needed. X-rays of the right hip, which were obtained while in the office today and were reviewed by me, Khushi Atkinson PA-C, revealed: Question of right hip greater troch fracture of indeterminate age. X-rays of the right hip, obtained on 03/02/24, revealed: Mildly displaced greater trochanteric fractures better appreciated on the prior cross-sectional imaging. Orders: Referrals [facility] Referral S72.111A - Displaced fracture of greater trochanter of right femur, initial encounter for closed fracture Patient Instructions: Scribed by Nathaly Jacinto medical editor, for Khushi Atkinson PA-C on 05/19/24 at 10:20 am EST. Coding Level of Care Code New Pt Level 4 (97273) Diagnoses Closed fracture of greater trochanter of right femur S72.111A
== END 2024-05-19 10:28 | disposition home or self-care (01) ==
LOC: HO.HOS 09:24
PROVIDERS: Visit Provider Physician Assistant
DX: S72.111A Displaced fracture of greater trochanter of right femur, initial encounter for closed fracture (principal)
CPT/HCPCS: 99204

== ENCOUNTER 2024-07-10 09:06 | Inpatient (IN) | payer MEDICARE, MEDICAID, SELFPAY ==
--- NOTE | 2024-07-10 | ECG_ITS ---
Test Reason : DIZZINESS Blood Pressure : / mmHG Vent. Rate : 100 BPM Atrial Rate : 100 BPM P-R Int : 152 ms QRS Dur : 092 ms QT Int : 372 ms P-R-T Axes : 073 063 062 degrees QTc Int : 479 ms Normal sinus rhythm Normal ECG When compared with ECG of 01-MAR-2024 19:05, No significant change was found Referred By: Rosanna Wilson Electronically Signed By:Darius Boo
--- NOTE | ~2024-07-10 | XR_ITS ---
EXAMINATION: XR WRIST, LEFT CLINICAL INFORMATION: pain, swelling, redness COMPARISON: None available. TECHNIQUE: 4 views of the left wrist. FINDINGS: There is diffuse osteopenia. There is loss of first carpometacarpal joint space with mild periarticular sclerosis and spurring. Rest of the intercarpal joint spaces maintain normal. There is negative ulnar variance. No visible acute fracture or dislocation seen. The soft tissues are normal. XR/XR wrist LT min 3V IMPRESSION: No visible acute fracture, dislocation or subluxation seen. Mild degenerative changes first carpometacarpal joint. Electronically signed by: Raum Shankar MD 07/21/2024 01:00 PM EST
--- NOTE | ~2024-07-10 | CT_ITS ---
EXAMINATION CT HEAD WITHOUT CONTRAST CLINICAL INFORMATION: Altered mental status COMPARISON: CT head October 17, 2023 TECHNIQUE: CT of the head was performed without intravenous contrast. Reformatted axial, coronal, and sagittal images were reviewed. This CT examination was performed using dose optimization techniques as appropriate, variously including the following: *Automated exposure control *Adjustment of mA and/or kV according to patient size (this includes techniques or standardized protocols for targeted exams where dose is matched to indication/reason for exam; i.e. extremities or head) *Use of iterative reconstruction technique DLP: 605 mGy-cm FINDINGS: No intracranial hemorrhage, extra-axial fluid collection, or midline shift is identified. Dixon-white matter differentiation is preserved. Periventricular white matter hypoattenuation consistent with chronic small vessel ischemic disease. Prominence of the cerebral sulci with commensurate ventriculomegaly consistent with age-related cerebral volume loss. Redemonstrated calcified mass along the right temporal convexity measuring 2.8 cm, unchanged since prior study likely consistent with meningioma. No associated scalloping of the inner table. Stable sclerotic lesions of the calvarium, particularly at the right frontal measuring 1.1 cm. Basal cisterns are within normal limits. Paranasal sinuses are clear. Mastoid air cells and middle ear cavities are clear. No acute calvarial fractures. CT/CT head/brain wo IV con IMPRESSION: 1. No acute intracranial abnormality. 2. Chronic small vessel ischemic disease and age-related cerebral volume loss. 3. Right temporal convexity meningioma, unchanged. Electronically signed by: Richard Torres DO 07/11/2024 09:11 PM [facility]
--- NOTE | 2024-07-10 09:10 | ED.GENADULT ---
HPI - General Adult General Chief complaint: Altered Mental Status Stated complaint: AMS VISUAL HALLUCINATIONS Time Seen by Provider: 07/10/24 09:07 Source: patient and EMS Mode of arrival: EMS Limitations: no limitations History of Present Illness ED Provider: Rosanna Wilson PA-C HPI narrative: Patient is an 84 year old assigned female at with a history of MDD presenting to the emergency department today with nausea, diarrhea, and hallucinations. Patient states that over the last day she has had constant diarrhea and nausea but has not vomited. Patient's visiting nurse states that the patient has been having visual hallucinations - seeing people that are not there and has had diarrhea throughout the house. Patient denies any dizziness, lightheadedness, abdominal pain, vomiting, fever, chills, blurry vision, double vision, loss of vision, chest pain, difficulty breathing, shortness of breath, back pain, night sweats, pain with urination, increased urinary frequency, increased urinary urgency, blood in her urine or stool, syncope or a near syncopal episode, recent trauma or falls, bowel incontinence, bladder incontinence, or any other complaints at this time. Onset (ago): day(s) Relieving factors: none Exacerbating factors: none Associated symptoms: nausea/vomiting Treatments prior to arrival: none Related Data Home Medications ?Medication ?Instructions ?Recorded ?Confirmed aspirin 81 mg chewable tablet 81 mg PO DAILY 10/18/23 07/11/24 bupropion HCl 200 mg tablet,12 hr 200 mg PO BID 10/18/23 07/11/24 sustained-release furosemide 40 mg tablet 40 mg PO DAILY 10/18/23 07/11/24 levothyroxine 112 mcg tablet 112 mcg PO DAILY@0600 10/18/23 07/11/24 lisinopril 40 mg tablet 40 mg PO DAILY 03/01/24 07/11/24 acetaminophen 325 mg tablet 650 mg PO Q4H PRN Pain 07/11/24 07/11/24 amlodipine 5 mg tablet 5 mg PO DAILY 07/11/24 07/11/24 celecoxib 100 mg capsule 100 mg PO BID PRN Pain 07/11/24 07/11/24 cholecalciferol (vitamin D3) 50 50 mcg PO DAILY 07/11/24 07/11/24 mcg (2,000 unit) tablet (Vitamin D3) insulin glargine 100 unit/mL (3 60 unit subcut DAILY 07/11/24 07/11/24 mL) subcutaneous pen (Lantus Solostar U-100 Insulin) lidocaine 5 % topical patch 1 patch topical DAILY PRN Pain 07/11/24 07/11/24 nystatin 100,000 unit/gram topical 1 appl topical BID-TID 07/11/24 07/11/24 powder (Nystop) olanzapine 5 mg tablet 5 mg PO DAILY 07/11/24 07/11/24 Previous Rx's ?Medication ?Instructions ?Recorded atorvastatin 10 mg tablet 10 mg PO BEDTIME #30 tabs 12/25/22 fluoxetine 40 mg capsule 40 mg PO DAILY #0 caps 12/25/22 omeprazole 20 mg capsule,delayed 20 mg PO DAILY@0630 #0 caps 12/25/22 release Allergies Allergy/AdvReac Type Severity Reaction Status Date / Time bee pollen [BEE STINGS] Allergy Unknown UNKNOWN Verified 07/10/24 09:11 morphine [MORPHINE] Allergy Unknown UNKNOWN Verified 07/10/24 09:11 Penicillins [PENICILLINS] Allergy Unknown UNKNOWN Verified 07/10/24 09:11 Review of Systems Constitutional: Constitutional: Reports no additional constitutional complaints, Denies chills, Denies fever(s) and Denies night sweats Eyes: Eyes: Reports no additional eye complaints, Denies blurry vision, Denies change in vision, Denies diplopia, Denies eye discharge, Denies loss of vision and Denies eye pain ENT: Denies dizziness Cardiovascular: Cardiovascular: Reports no additional cardiovascular complaints, Denies chest pain, Denies lightheadedness, Denies Loss of Consciousness and Denies dyspnea Respiratory: Respiratory: Reports no additional respiratory complaints and Denies dyspnea Gastrointestinal: Gastrointestinal: Reports no additional gastrointestinal complaints, Denies abdominal pain, Denies melena, Denies hematochezia, Denies change in bowel habits, Denies change in stool character, Reports diarrhea and Reports nausea Genitourinary: Genitourinary: Denies hematuria, Denies urinary frequency, Denies dysuria, Denies urinary incontinence, Denies urinary hesitancy and Denies urinary urgency Musculoskeletal: Musculoskeletal: Reports no additional musculoskeletal complaints, Denies numbness and Denies tingling Neurologic: Denies dizziness, Denies loss of vision, Denies numbness and Denies tingling Psychiatric: Psychiatric: Reports visual hallucinations Endocrine: Endocrine: Reports no additional endocrine complaints Hematologic/Lymphatic: Hematologic/Lymphatic: Reports no additional hematologic/lymphatic complaints Allergic/Immunologic: Allergic/Immunologic: Reports no additional allergic/immunologic complaints [facility] Past Medical History Attestation statement: The following information was validated with the patient. Source: old records reviewed, nursing notes reviewed and other (patient's visiting nurse provided additional history and confirmed the history provided by the patient) Medical History Diabetes MDD (major depressive disorder), recurrent episode, moderate Social History Social History Household Members: None Housing: Apartment Do you presently have visiting nurse or other home services: Yes Alcohol intake: former Comment: Red wrist band on. Patient Tobacco Use Status: Never used Tobacco Smoked in Last 30 Days: No e-Cigarette/Vaping Use: Never Used Use of substances other than those prescribed or required for medical reasons: No Advance Directives: Yes Advance Directives on File: Yes Advance Directives Date on File: 10/19/23 Do you have a plan to hurt others: No Plan service: No Sexual orientation: Straight/Heterosexual Physical Exam ED Vital Signs: Vital Signs - 24 hr 07/13/24 14:19 07/13/24 20:51 07/13/24 22:28 Temperature 98.8 F 99.4 F Pulse Rate 106 H 102 H 106 H Respiratory Rate 18 16 16 Blood Pressure 134/77 155/85 H 160/82 H Pulse Oximetry 93 88 L 91 L Oxygen Delivery Method Room Air Room Air Room Air 07/14/24 06:20 07/14/24 08:55 Temperature 97.8 F Pulse Rate 108 H 110 H Respiratory Rate 18 16 Blood Pressure 164/89 H 173/87 H Pulse Oximetry 92 93 Oxygen Delivery Method Room Air Room Air BMI result Body Mass Index 24.1 Const General: cooperative, no acute distress, alert and awake Nutritional Appearance: well nourished Orientation/consciousness: patient oriented x3 Limitations: no limitations HENMT Head: Yes normal to inspection and Yes atraumatic Ears: hearing grossly normal bilaterally and external ears normal General nose exam: Normal external nose present, no nasal discharge noted and no epistaxis Face and sinus: Yes normal facial exam, No abrasion and No laceration Mouth: Normal oral and palatal mucosa present, no drooling and no muffled voice Eyes General: appearance normal, both eyes and all related structures Periorbital: periorbital findings normal Eyelids: Yes eyelids normal Conjunctivae: conjunctivae normal Pupils: Equal, round and reactive pupils present EOM: EOMs intact bilaterally Neck Neck: Yes normal visual inspection, Yes full ROM and Yes no lymphadenopathy Chest Chest palpation & inspection: normal inspection of the chest Resp Effort & Inspection: normal respiratory effort and able to speak in complete sentences GI Inspection: Yes normal to inspection Neuro General: patient oriented x3 and moves all extremities Cranial nerves: Yes Equal, round and reactive pupils present Cognition (Neuro): normal cognition Extrem General: Yes normal to inspection, Yes full ROM and Yes capillary refill normal Psych Appearance: grossly normal Mental Status: mental status grossly normal Affect: normal affect Attitude: cooperative Thought content: Hallucination(s) present visual Course Course Course Narrative: 07/14/24- 1125--physician observation continued. Patient mildly tachycardic this morning, labs reviewed. Psychiatry evaluated patient on 06/11 and no need for inpatient psych admission however concern of patient's cognitive impairments and declined. Pending MOCA & ACL eval to determine if patient is safe and able to function at home. We will continue to monitor for discharge needs Reevaluation(s) Reevaluation #1: No urinary tract infection noted. Patient was seen by care team they suggest psych consult. Psych consult placed. At this time patient to be placed into observation to allow more time to be evaluated by psych. At time observation was started patient common cooperative no acute distress will continue to monitor. Time: 18:27 Reevaluation #2: 07/12/2024 0700: Rosanna Wilson PA-C. Observation continues. Patient having difficulty with her food this morning, secondary to geodon. Speech swallow study ordered. Diet changed. CM requested a MOCA evaluation, OT to place that. CM continues to follow. Medications Administered Generic Name Dose Route Start Last Admin Trade Name Freq PRN Reason Stop Dose Admin Amlodipine Besylate 5 mg 07/12/24 09:00 07/14/24 08:57 Amlodipine Besylate 5 Mg Tablet PO 5 mg DAILY SHIREEN Administration Protocol Aspirin 81 mg 07/12/24 09:00 07/14/24 08:57 Aspirin 81 Mg Tab.Chew PO 81 mg DAILY SHIREEN Administration Atorvastatin Calcium 10 mg 07/12/24 21:00 07/14/24 00:30 Atorvastatin Calcium 10 Mg Tablet PO Not Given BEDTIME SHIREEN Bupropion HCl 300 mg 07/12/24 09:00 07/14/24 11:05 Bupropion Hcl Xl 300 Mg Tab.Er.24h PO 300 mg DAILY SHIREEN Administration Bupropion HCl 150 mg 07/12/24 09:00 07/14/24 08:57 Bupropion Hcl Xl 150 Mg Tab.Er.24h PO 150 mg DAILY SHIREEN Administration Fluoxetine HCl 40 mg 07/12/24 09:00 07/14/24 08:57 Fluoxetine Hcl 20 Mg Capsule PO 40 mg DAILY SHIREEN Administration Furosemide 40 mg 07/12/24 09:00 07/14/24 08:57 Furosemide 40 Mg Tablet PO 40 mg DAILY SHIREEN Administration Protocol Insulin Glargine 60 unit 07/12/24 09:00 07/14/24 08:58 Insulin Glargine,Hum.Rec.Anlog 100 Unit/Ml 10 Ml Vial SUBCUT 60 unit DAILY SHIREEN Administration Levothyroxine Sodium 112 mcg 07/12/24 06:00 07/14/24 05:52 Levothyroxine Sodium 112 Mcg Tablet PO 112 mcg DAILY@0600 SHIREEN Administration Lidocaine 1 patch 07/11/24 23:27 07/11/24 23:31 Lidocaine 4 % Patch Adh..Patch TRANSDERMA 1 patch DAILY PRN Administration Pain Lisinopril 40 mg 07/12/24 09:00 07/14/24 08:57 Lisinopril 40 Mg Tablet PO 40 mg DAILY SHIREEN Administration Protocol Nystatin 1 appl 07/11/24 23:15 07/14/24 09:04 Nystatin Powder 15 Gm Bottle TOPICAL 1 appl BID SHIREEN Administration Protocol Olanzapine 5 mg 07/12/24 09:00 07/14/24 08:57 Olanzapine 5 Mg Tablet PO 5 mg DAILY SHIREEN Administration Olanzapine 10 mg 07/11/24 23:13 07/12/24 23:33 Olanzapine Odt 10 Mg Tab.Rapdis TRANSLINGU 10 mg BID PRN Administration Agitation Omeprazole 20 mg 07/12/24 06:30 07/14/24 05:52 Omeprazole 20 Mg Capsule.Dr PO 20 mg DAILY@0630 SHIREEN Administration Vitamin D 50 mcg 07/12/24 09:00 07/14/24 08:57 Cholecalciferol (Vitamin D3) 25 Mcg Tablet PO 50 mcg DAILY SHIREEN Administration Discontinued Medications Generic Name Dose Route Start Last Admin Trade Name Deep PRN Reason Stop Dose Admin Lactated Ringer's 1,000 mls @ 999 mls/hr 07/10/24 09:30 07/10/24 11:59 Lr IV 07/10/24 10:30 Infused .Q1H1M SHIREEN Infusion Lactated Ringer's 1,000 mls @ 999 mls/hr 07/10/24 14:45 07/10/24 17:04 Lr IV 07/10/24 15:45 Infused .Q1H1M SHIREEN Infusion Ondansetron HCl 4 mg 07/10/24 09:30 07/10/24 09:38 Ondansetron Hcl 4 Mg/2 Ml Vial IVPUSH 07/10/24 09:31 4 mg ONCE ONE Administration Ziprasidone 60 mg 07/12/24 03:51 07/12/24 05:25 Ziprasidone 60 Mg Capsule PO 07/12/24 03:52 60 mg ONCE ONE Administration Medical Decision Making Medical Decision Making [facility] Narrative: Patient is an 84 year old assigned female at with a history of MDD presenting to the emergency department today with nausea, diarrhea, and hallucinations. Patient's physical exam was as noted in the physical exam portion of this note. Patient's blood work was unremarkable. Patient's urine is pending at this time. I explained my physical exam findings as well as all test results to the patient. I answered all questions asked by the patient. Patient is awaiting her urine / UA results and CARE evaluation. Differential Diagnosis Differential Diagnoses: The differential diagnosis associated with the presentation includes Delusions Hallucinations Admission/Observation Consideration of admission/observation: Escalation of care including admission/observation considered Disposition will be determined after CARE Team evaluation and urine results. Lab Data [facility] Lab Attestation statement: I reviewed the patient's lab results. My interpretation of these results are in the MDM Rationale portion of this note. 07/10/24 09:35 07/10/24 09:35 Labs: Lab Results 07/10/24 07/10/24 07/10/24 Range/Units 09:35 09:54 17:51 WBC 15.8 H (4.8-10.8) X10*3/uL RBC 5.15 (4.20-5.50) X10*6/uL Hgb 11.9 L (12.0-16.0) g/dl Hct 38.7 (37.0-47.0) % MCV 75.1 L (80.0-98.0) fL MCH 23.1 L (27.0-33.0) pg MCHC 30.7 L (31.0-35.0) g/dl RDW 15.7 (11.0-16.0) % Plt Count 687 H (160-400) X10*3/uL MPV 9.7 (9.4-12.3) fL Immature Gran % (Auto) 0.6 H (0.0-0.4) % Neut % (Auto) 82.5 H (45-73) % Lymph % (Auto) 10.4 L (20-40) % [place] % (Auto) 5.9 (2-11) % Eos % (Auto) 0.3 (0-4) % Baso % (Auto) 0.3 (0-2) % Lymph # (Auto) 1.6 (1.2-4.9) X10*3/uL [place] # (Auto) 0.9 (0.1-1.2) X10*3/uL Eos # (Auto) 0.0 (0.0-0.4) X10*3/uL Baso # (Auto) 0.0 (0.0-0.2) X10*3/uL Abs Immat Gran (auto) 0.09 H (0.00-0.03) X10*3/uL Absolute Neuts (auto) 13.0 H (2.0-8.3) x10*3/uL Absolute Nucleated RBC 0.000 (0.0-0.012) X10*3/uL Nucleated RBC % (auto) 0.0 (0.0-0.2) /100WBC Sodium 136 (135-145) mmol/L Potassium 4.3 (3.3-5.1) mmol/L Chloride 102 (96-108) mmol/L Carbon Dioxide 22 (22-29) mmol/L Anion Gap 16 (12-20) BUN 11 (9-16) mg/dL Creatinine 1.16 (0.5-1.4) mg/dL Estim Creat Clear Calc 37.7 Estimated GFR 45 POC Glucose 206 H (60-115) mg/dL Random Glucose 240 H (60-115) mg/dL Calcium 9.3 (8.4-10.2) mg/dL Magnesium 1.7 (1.6-2.6) mg/dL Total Bilirubin 0.3 (0.0-1.0) mg/dL AST 26 (5-31) U/L ALT 17 (0-31) U/L Alkaline Phosphatase 113 (39-117) U/L Troponin I High Sens 2.8 (<3.5-17.0) ng/L Total Protein 7.6 (6.5-8.0) g/dL Albumin 3.6 (3.5-5.0) g/dL TSH (0.32-4.0) uIU/mL Free T4 (0.71-1.85) ng/dL Urine Color Yellow Urine Appearance Clear Urine pH 6.5 (5.0-9.0) Ur Specific [place] 1.010 (1.005-1.025) Urine Protein 30 (1+) H (Neg-Trace) mg/dL Urine Glucose (UA) Negative (Negative) mg/dL Urine Ketones Negative (Negative) mg/dL Urine Blood Negative (Negative) Urine Nitrite Negative (Negative) Ur Leukocyte Esterase Negative (Negative) Urine RBC 0-2 (0-2) /HPF Urine WBC 0-5 (0-5) /HPF Ur Squamous Epith Cells 6-10 (0-2) /HPF Urine Bacteria Trace (None Seen) Hyaline Casts 0-2 (0-2) /LPF Influenza Type A (PCR) NEGATIVE (Negative) Influenza Type B (PCR) NEGATIVE (Negative) RSV RNA Qual (PCR) NEGATIVE (Negative) SARS-CoV-2 RNA (RT-PCR) NEGATIVE (Negative) 07/11/24 07/11/24 07/11/24 Range/Units 00:28 11:19 23:16 WBC (4.8-10.8) X10*3/uL RBC (4.20-5.50) X10*6/uL Hgb (12.0-16.0) g/dl Hct (37.0-47.0) % MCV (80.0-98.0) fL MCH (27.0-33.0) pg MCHC (31.0-35.0) g/dl RDW (11.0-16.0) % Plt Count (160-400) X10*3/uL MPV (9.4-12.3) fL Immature Gran % (Auto) (0.0-0.4) % Neut % (Auto) (45-73) % Lymph % (Auto) (20-40) % [place] % (Auto) (2-11) % Eos % (Auto) (0-4) % Baso % (Auto) (0-2) % Lymph # (Auto) (1.2-4.9) X10*3/uL [place] # (Auto) (0.1-1.2) X10*3/uL Eos # (Auto) (0.0-0.4) X10*3/uL Baso # (Auto) (0.0-0.2) X10*3/uL Abs Immat Gran (auto) (0.00-0.03) X10*3/uL Absolute Neuts (auto) (2.0-8.3) x10*3/uL Absolute Nucleated RBC (0.0-0.012) X10*3/uL Nucleated RBC % (auto) (0.0-0.2) /100WBC Sodium (135-145) mmol/L Potassium (3.3-5.1) mmol/L Chloride (96-108) mmol/L Carbon Dioxide (22-29) mmol/L Anion Gap (12-20) BUN (9-16) mg/dL Creatinine (0.5-1.4) mg/dL Estim Creat Clear Calc Estimated GFR POC Glucose 142 H 142 H (60-115) mg/dL Random Glucose (60-115) mg/dL Calcium (8.4-10.2) mg/dL Magnesium (1.6-2.6) mg/dL Total Bilirubin (0.0-1.0) mg/dL AST (5-31) U/L ALT (0-31) U/L Alkaline Phosphatase (39-117) U/L Troponin I High Sens (<3.5-17.0) ng/L Total Protein (6.5-8.0) g/dL Albumin (3.5-5.0) g/dL TSH 0.21 L (0.32-4.0) uIU/mL Free T4 1.45 (0.71-1.85) ng/dL Urine Color Urine Appearance Urine pH (5.0-9.0) Ur Specific [place] (1.005-1.025) Urine Protein (Neg-Trace) mg/dL Urine Glucose (UA) (Negative) mg/dL Urine Ketones (Negative) mg/dL Urine Blood (Negative) Urine Nitrite (Negative) Ur Leukocyte Esterase (Negative) Urine RBC (0-2) /HPF Urine WBC (0-5) /HPF Ur Squamous Epith Cells (0-2) /HPF Urine Bacteria (None Seen) Hyaline Casts (0-2) /LPF Influenza Type A (PCR) (Negative) Influenza Type B (PCR) (Negative) RSV RNA Qual (PCR) (Negative) SARS-CoV-2 RNA (RT-PCR) (Negative) 07/12/24 07/12/24 07/12/24 Range/Units 08:37 13:18 18:18 WBC (4.8-10.8) X10*3/uL RBC (4.20-5.50) X10*6/uL Hgb (12.0-16.0) g/dl Hct (37.0-47.0) % MCV (80.0-98.0) fL MCH (27.0-33.0) pg MCHC (31.0-35.0) g/dl RDW (11.0-16.0) % Plt Count (160-400) X10*3/uL MPV (9.4-12.3) fL Immature Gran % (Auto) (0.0-0.4) % Neut % (Auto) (45-73) % Lymph % (Auto) (20-40) % [place] % (Auto) (2-11) % Eos % (Auto) (0-4) % Baso % (Auto) (0-2) % Lymph # (Auto) (1.2-4.9) X10*3/uL [place] # (Auto) (0.1-1.2) X10*3/uL Eos # (Auto) (0.0-0.4) X10*3/uL Baso # (Auto) (0.0-0.2) X10*3/uL Abs Immat Gran (auto) (0.00-0.03) X10*3/uL Absolute Neuts (auto) (2.0-8.3) x10*3/uL Absolute Nucleated RBC (0.0-0.012) X10*3/uL Nucleated RBC % (auto) (0.0-0.2) /100WBC Sodium (135-145) mmol/L Potassium (3.3-5.1) mmol/L Chloride (96-108) mmol/L Carbon Dioxide (22-29) mmol/L Anion Gap (12-20) BUN (9-16) mg/dL Creatinine (0.5-1.4) mg/dL Estim Creat Clear Calc Estimated GFR POC Glucose 118 H 155 H 139 H (60-115) mg/dL Random Glucose (60-115) mg/dL Calcium (8.4-10.2) mg/dL Magnesium (1.6-2.6) mg/dL Total Bilirubin (0.0-1.0) mg/dL AST (5-31) U/L ALT (0-31) U/L Alkaline Phosphatase (39-117) U/L Troponin I High Sens (<3.5-17.0) ng/L Total Protein (6.5-8.0) g/dL Albumin (3.5-5.0) g/dL TSH (0.32-4.0) uIU/mL Free T4 (0.71-1.85) ng/dL Urine Color Urine Appearance Urine pH (5.0-9.0) Ur Specific [place] (1.005-1.025) Urine Protein (Neg-Trace) mg/dL Urine Glucose (UA) (Negative) mg/dL Urine Ketones (Negative) mg/dL Urine Blood (Negative) Urine Nitrite (Negative) Ur Leukocyte Esterase (Negative) Urine RBC (0-2) /HPF Urine WBC (0-5) /HPF Ur Squamous Epith Cells (0-2) /HPF Urine Bacteria (None Seen) Hyaline Casts (0-2) /LPF Influenza Type A (PCR) (Negative) Influenza Type B (PCR) (Negative) RSV RNA Qual (PCR) (Negative) SARS-CoV-2 RNA (RT-PCR) (Negative) 07/13/24 07/14/24 Range/Units 08:03 08:47 WBC (4.8-10.8) X10*3/uL RBC (4.20-5.50) X10*6/uL Hgb (12.0-16.0) g/dl Hct (37.0-47.0) % MCV (80.0-98.0) fL MCH (27.0-33.0) pg MCHC (31.0-35.0) g/dl RDW (11.0-16.0) % Plt Count (160-400) X10*3/uL MPV (9.4-12.3) fL Immature Gran % (Auto) (0.0-0.4) % Neut % (Auto) (45-73) % Lymph % (Auto) (20-40) % [place] % (Auto) (2-11) % Eos % (Auto) (0-4) % Baso % (Auto) (0-2) % Lymph # (Auto) (1.2-4.9) X10*3/uL [place] # (Auto) (0.1-1.2) X10*3/uL Eos # (Auto) (0.0-0.4) X10*3/uL Baso # (Auto) (0.0-0.2) X10*3/uL Abs Immat Gran (auto) (0.00-0.03) X10*3/uL Absolute Neuts (auto) (2.0-8.3) x10*3/uL Absolute Nucleated RBC (0.0-0.012) X10*3/uL Nucleated RBC % (auto) (0.0-0.2) /100WBC Sodium (135-145) mmol/L Potassium (3.3-5.1) mmol/L Chloride (96-108) mmol/L Carbon Dioxide (22-29) mmol/L Anion Gap (12-20) BUN (9-16) mg/dL Creatinine (0.5-1.4) mg/dL Estim Creat Clear Calc Estimated GFR POC Glucose 149 H 106 (60-115) mg/dL Random Glucose (60-115) mg/dL Calcium (8.4-10.2) mg/dL Magnesium (1.6-2.6) mg/dL Total Bilirubin (0.0-1.0) mg/dL AST (5-31) U/L ALT (0-31) U/L Alkaline Phosphatase (39-117) U/L Troponin I High Sens (<3.5-17.0) ng/L Total Protein (6.5-8.0) g/dL Albumin (3.5-5.0) g/dL TSH (0.32-4.0) uIU/mL Free T4 (0.71-1.85) ng/dL Urine Color Urine Appearance Urine pH (5.0-9.0) Ur Specific [place] (1.005-1.025) Urine Protein (Neg-Trace) mg/dL Urine Glucose (UA) (Negative) mg/dL Urine Ketones (Negative) mg/dL Urine Blood (Negative) Urine Nitrite (Negative) Ur Leukocyte Esterase (Negative) Urine RBC (0-2) /HPF Urine WBC (0-5) /HPF Ur Squamous Epith Cells (0-2) /HPF Urine Bacteria (None Seen) Hyaline Casts (0-2) /LPF Influenza Type A (PCR) (Negative) Influenza Type B (PCR) (Negative) RSV RNA Qual (PCR) (Negative) SARS-CoV-2 RNA (RT-PCR) (Negative) Independent Historian Clinical information obtained from an independent historian. History obtained from or confirmed by: EMS (EMS provided additional history and confirmed the history provided by the patient.) Discharge Plan Discharge Clinical Impression: Hallucination, visual Patient Disposition: Still a Patient Prescriptions: No Action furosemide 40 mg tablet 40 mg PO DAILY levothyroxine 112 mcg tablet 112 mcg PO DAILY@0600 aspirin 81 mg Tablet,Chewable 81 mg PO DAILY bupropion HCl 200 mg tablet sustained-release 12 hr 200 mg PO BID fluoxetine 40 mg capsule 40 mg PO DAILY Qty: 0 0RF omeprazole 20 mg Capsule,Delayed Release(Dr/Ec) 20 mg PO DAILY@0630 Qty: 0 0RF atorvastatin 10 mg Tablet 10 mg PO BEDTIME Qty: 30 0RF lisinopril 40 mg tablet 40 mg PO DAILY amlodipine 5 mg tablet 5 mg PO DAILY nystatin [Nystop] 100,000 unit/gram powder 1 appl topical BID-TID celecoxib 100 mg capsule 100 mg PO BID PRN (Reason: Pain) insulin glargine [Lantus Solostar U-100 Insulin] 100 unit/mL (3 mL) insulin pen 60 unit subcut DAILY acetaminophen 325 mg Tablet 650 mg PO Q4H PRN (Reason: Pain) olanzapine 5 mg Tablet 5 mg PO DAILY lidocaine 5 % Adhesive Patch,Medicated 1 patch TOPICAL DAILY PRN (Reason: Pain) Rx Instructions: leave on most painful area for up to 12 hrs cholecalciferol (vitamin D3) [Vitamin D3] 50 mcg (2,000 unit) Tablet 50 mcg PO DAILY Referrals: Mat Olivo FNP-BC [Primary Care Provider] - Print Language: Tajik
[2024-07-10 09:11] VITALS: BP 150/80; BP 153/81; PULSE 101; PULSE 103; RESP 20; TEMP 36.7; O2SAT 98; O2SAT 99; BMI 24.1
[2024-07-10] MEDS: Lactated Ringers 1,000 ML 999 ML IV ×2 (09:38→15:01)
[2024-07-10] MEDS: ondansetron HCL 4 MG/2 ML VIAL IVPUSH (09:38)
[2024-07-10 09:40] LABS: MANUAL DIFF FLAG NO
--- NOTE | 2024-07-10 09:45 | PC.NURSE ---
biba from home as a sepsis alert. [facility] on scene - noted pt to have visual hallucinations - seeing people that aren't there. pt noted to have diarrhea throughout house. pt reports nonbloody diarrhea x yesterday w/ associated nausea. denies abd pain/vomiting. POC 375mg/dL. upon ED arrival - pt mostly alert and oriented but pleasantly confused. able to answer questions/follow commands appropriately but often quite forgetful. pt covered in nonbloody dried up diarrhea throughout upon EMS arrival. personal hygiene performed. fresh hospital attire applied. vss and up to date. 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 20gIV in the left AC via EMS - patent/intact. IVF/medication administered per provider order. ekg performed. labs obtained/sent to lab. pt on RA w/o difficulty - no sob/wob noted. respirations even/unlabored. plan of care ongoing. call rueda placed within reach.
[2024-07-10 09:58] LABS: Alanine Aminotransferase 17 U/L (0-31); Albumin Level 3.6 g/dL (3.5-5.0); Alkaline Phosphatase 113 U/L (39-117); Anion Gap 16 (12-20); Aspartate Amino Transferase 26 U/L (5-31); Bilirubin Total 0.3 mg/dL (0.0-1.0); Blood Urea Nitrogen 11 mg/dL (9-16); Calcium 9.3 mg/dL (8.4-10.2); Carbon Dioxide 22 mmol/L (22-29); Chloride 102 mmol/L (96-108); Creatinine Clr Calc Pharmacy 37.7; Estimated Glomerular Filt Rate 45; Glucose Random 240 mg/dL (60-115); Magnesium 1.7 mg/dL (1.6-2.6); Potassium 4.3 mmol/L (3.3-5.1); Sodium 136 mmol/L (135-145); Total Protein 7.6 g/dL (6.5-8.0)
[2024-07-10 09:59] LABS: Glucose, Whole Blood 206 mg/dL (60-115)
[2024-07-10 10:02] LABS: Basophils Percent Auto 0.3 % (0-2); Eosinophils Percent Auto 0.3 % (0-4); Hematocrit 38.7 % (37.0-47.0); Hemoglobin 11.9 g/dl (12.0-16.0); Imm Gran Abs Auto 0.09 X10*3/uL (0.00-0.03); Imm Gran Pct Auto 0.6 % (0.0-0.4); Lymphocytes Absolute Auto 1.6 X10*3/uL (1.2-4.9); Lymphocytes Percent Auto 10.4 % (20-40); Mean Corpuscular HGB Conc 30.7 g/dl (31.0-35.0); Mean Corpuscular Hemoglobin 23.1 pg (27.0-33.0); Mean Corpuscular Volume 75.1 fL (80.0-98.0); Mean Platelet Volume 9.7 fL (9.4-12.3); Monocytes Absolute Auto 0.9 X10*3/uL (0.1-1.2); Monocytes Percent Auto 5.9 % (2-11); Neutrophils Percent Auto 82.5 % (45-73); Platelet Count 687 X10*3/uL (160-400); Red Blood Count 5.15 X10*6/uL (4.20-5.50); Red Cell Distribution Width 15.7 % (11.0-16.0); White Blood Count 15.8 X10*3/uL (4.8-10.8)
[2024-07-10 10:05] LABS: Troponin-I High Sensitivity 2.8 ng/L (<3.5-17.0)
[2024-07-10 10:06] VITALS: BP 185/92; PULSE 103; RESP 16; TEMP 36.9; O2SAT 96
[2024-07-10 10:21] LABS: Influenza A PCR NEGATIVE (Negative); Influenza B PCR NEGATIVE (Negative); Resp Syncy Virus RNA Qual PCR NEGATIVE (Negative); SARS COV2 PCR INHOUSE NEGATIVE (Negative)
--- NOTE | 2024-07-10 14:45 | PC.NURSE ---
pt still unable to urinate at this time while utilizing bed curry. bladder scan obtained displaying 260ml. no new episodes of nausea/diarrhea at this time. provider notified/aware of results.
[2024-07-10 15:07] VITALS: BP 119/51; PULSE 99; RESP 17; TEMP 36.6; O2SAT 94
--- NOTE | 2024-07-10 16:55 | PC.NURSE ---
pt speaking w/ care team at this time - pending psychiatry consult. plan of care ongoing.
--- NOTE | 2024-07-10 17:00 | PC.NURSE ---
IVF infusing per provider order. pt continues to rest in no apparent distress. no sob/wob noted. respirations even/unlabored. plan of care ongoing. call rueda placed within reach.
[2024-07-10 17:57] LABS: Appearance Urine Clear; Color Urine Yellow; Glucose Urine UA Negative (Negative); Leukocyte Esterase Urine Negative (Negative); Nitrite Urine Negative (Negative); PH 6.5 (5.0-9.0); UMIC TRIGGER UACC YES; Urine Blood Negative (Negative); Urine Ketones Negative (Negative); Urine Protein 30 (1+) mg/dL (Neg-Trace)
[2024-07-10 18:02] LABS: Bacteria Urine Trace (None Seen); Hyaline Casts Urine 0-2 /LPF (0-2); RBC Urine 0-2 /HPF (0-2); WBC Urine 0-5 /HPF (0-5)
[2024-07-10 18:05] VITALS: BP 139/89; PULSE 94; RESP 18; TEMP 36.9; O2SAT 96
--- NOTE | 2024-07-10 18:06 | PC.NURSE ---
pt still unable to urinate at this time - straight catheterization performed - 400ml of clear, pale yellow, foul smelling urine immediately post output. UA obtained/sent to lab. pt transitioned to hospital bed to promote comfort at this time. pt pending psychiatry consult at this time. bed alarm turned on for safety precautions. plan of care ongoing. call rueda placed within reach.
[2024-07-10 20:54] VITALS: RESP 14
[2024-07-11 00:32] LABS: Glucose, Whole Blood 142 mg/dL (60-115)
[2024-07-11 06:43] VITALS: BP 138/79; PULSE 95; RESP 20; TEMP 36.4; O2SAT 93
[2024-07-11 07:50] VITALS: BP 177/79; PULSE 101; RESP 18; TEMP 36.6; O2SAT 94
--- NOTE | 2024-07-11 08:34 | PC.NURSE ---
patient is awake, alert and oriented, patient is resting quietly, ambulated to the bathroom with walker and one assist, patient did well. patient sat up and ate breakfast, linens clean and dry. VSS, resp even and unlabored
[2024-07-11 11:54] VITALS: BP 155/84; PULSE 110; RESP 17; TEMP 36.9; O2SAT 95
--- NOTE | 2024-07-11 12:08 | PM.PSYCN ---
History of Present Illness Date of Service: 07/11/2024 Chief Complaint: AMS VISUAL HALLUCINATIONS Reason for Consult: hallucinations Requesting physician: Karely Chew Discussed with referring provider: Yes Sources of Information: patient interviewed, chart reviewed and crisis/core team assessment reviewed HPI Narrative: Ms. Juels is an 84 year-old woman with hx of dementia, who self presented to [facility] ED complaining of nausea, vomiting. VNA also reported pt seeing things that were not there. In the ED, labs included cbc with leukocytosis (WBC 15.8), microcytic anemia, CMP BUN 11, Cr 1.16 with creatinine clearance of 37.7. UA did not show UTI. No clear signs of infection despite leukocytosis- afebrile, no respiratory symptoms. Utox is negative. Pt is known to this telegraphic typewriter mechanic through one previous psychiatric admission back in 12/25/2022 for depression and SI. Pt seen in the ED. She reports she came here due to weakness. WHen asked about nausea and vomiting, pt reports that seems to be happening recently. However, when pt was admitted to our unit, she reported nausea, vomiting and was observed not eating much as she was worried it would exacerbate symptoms of nausea even when given medication to decrease gastric acid. She had after that 2 other ED visits with same complaint. She was seen in the ED one year ago and had abdominal CT showing moderately sized hiatal hernia. She was recommended to follow up with GI but it appears as reported today she has not and she reports she does not remember she was suppose to do so... she tells this telegraphic typewriter mechanic she thought her nausea and vomiting was related to anxiety. She does not seem to remember she was admitted to our unit a bit over a year ago. She is not able to tell this telegraphic typewriter mechanic who her PCP (she used to when she was on our unit) is nor when was the last time. She is oriented to month, year but seem confused about situation and place (though we were in [place] and did not know the name of this hospital). In terms of hallucinations, during interview she did not appear to be internally preoccupied. No overt delusional content. But it was noted significant gaps in memory and confabulation. Past Psychiatric History: Inpatient: none OP: none Past trials: wellbutrin, prozac PMFSH Medical History Diabetes MDD (major depressive disorder), recurrent episode, moderate Social History: Vira is 1 of 3 siblings. Her 2 siblings are . She lives alone after moving here from [place] to be near her grandchild. She was in [place] and moved here 3 or 4 years ago. She was once and for many years. She has worked in the past but is on social security now, receiving over 2000 dollars a month. She denies any previous psychiatric treatment Trauma History: None Diagnostics Vital Signs (24Hr): Vital Signs - 24 hr 07/10/24 15:07 07/10/24 18:05 07/10/24 20:54 Temperature 97.8 F 98.4 F Pulse Rate 99 94 Respiratory Rate 17 18 14 Blood Pressure 119/51 L 139/89 Pulse Oximetry 94 96 Oxygen Delivery Method Room Air Room Air 07/11/24 06:43 07/11/24 07:50 07/11/24 11:54 Temperature 97.6 F 98 F 98.4 F Pulse Rate 95 101 H 110 H Respiratory Rate 20 18 17 Blood Pressure 138/79 177/79 H 155/84 H Pulse Oximetry 93 94 95 Oxygen Delivery Method Room Air Room Air Room Air BMI result Body Mass Index 24.1 Labs 07/10/24 09:35 07/10/24 09:35 Labs: Laboratory Results - last 48 hr 07/10/24 07/10/24 07/10/24 09:35 09:54 17:51 WBC 15.8 H RBC 5.15 Hgb 11.9 L Hct 38.7 MCV 75.1 L MCH 23.1 L MCHC 30.7 L RDW 15.7 Plt Count 687 H MPV 9.7 Immature Gran % (Auto) 0.6 H Neut % (Auto) 82.5 H Lymph % (Auto) 10.4 L [place] % (Auto) 5.9 Eos % (Auto) 0.3 Baso % (Auto) 0.3 Lymph # (Auto) 1.6 [place] # (Auto) 0.9 Eos # (Auto) 0.0 Baso # (Auto) 0.0 Abs Immat Gran (auto) 0.09 H Absolute Neuts (auto) 13.0 H Absolute Nucleated RBC 0.000 Nucleated RBC % (auto) 0.0 Sodium 136 Potassium 4.3 Chloride 102 Carbon Dioxide 22 Anion Gap 16 BUN 11 Creatinine 1.16 Estim Creat Clear Calc 37.7 Estimated GFR 45 POC Glucose 206 H Random Glucose 240 H Calcium 9.3 Magnesium 1.7 Total Bilirubin 0.3 AST 26 ALT 17 Alkaline Phosphatase 113 Troponin I High Sens 2.8 Total Protein 7.6 Albumin 3.6 Urine Color Yellow Urine Appearance Clear Urine pH 6.5 Ur Specific [place] 1.010 Urine Protein 30 (1+) H Urine Glucose (UA) Negative Urine Ketones Negative Urine Blood Negative Urine Nitrite Negative Ur Leukocyte Esterase Negative Urine RBC 0-2 Urine WBC 0-5 Ur Squamous Epith Cells 6-10 Urine Bacteria Trace Hyaline Casts 0-2 Influenza Type A (PCR) NEGATIVE Influenza Type B (PCR) NEGATIVE RSV RNA Qual (PCR) NEGATIVE SARS-CoV-2 RNA (RT-PCR) NEGATIVE 07/11/24 00:28 WBC RBC Hgb Hct MCV MCH MCHC RDW Plt Count MPV Immature Gran % (Auto) Neut % (Auto) Lymph % (Auto) [place] % (Auto) Eos % (Auto) Baso % (Auto) Lymph # (Auto) [place] # (Auto) Eos # (Auto) Baso # (Auto) Abs Immat Gran (auto) Absolute Neuts (auto) Absolute Nucleated RBC Nucleated RBC % (auto) Sodium Potassium Chloride Carbon Dioxide Anion Gap BUN Creatinine Estim Creat Clear Calc Estimated GFR POC Glucose 142 H Random Glucose Calcium Magnesium Total Bilirubin AST ALT Alkaline Phosphatase Troponin I High Sens Total Protein Albumin Urine Color Urine Appearance Urine pH Ur Specific [place] Urine Protein Urine Glucose (UA) Urine Ketones Urine Blood Urine Nitrite Ur Leukocyte Esterase Urine RBC Urine WBC Ur Squamous Epith Cells Urine Bacteria Hyaline Casts Influenza Type A (PCR) Influenza Type B (PCR) RSV RNA Qual (PCR) SARS-CoV-2 RNA (RT-PCR) Mental Status Exam Mental Status Exam Narrative: Appearance: MO, wearing hospital gown, slightly disheveled, in NAD Behavior: cooperative Psychomotor: no agitation or retardation noted Speech: clear, normal rate/rhythm, hyperverbal but not pressured, spontaneous TP: circumstantial TC: no signs of psychosis, adamantly denies SI or plan or intent Mood: okay Affect: congruent SI: denies HI: denies VH/AH: none delusions: none Insight/judgment: fair x 2. Memory/cog: alert, oriented to month, year, not to place, does not know name of hospital and thinks we are in [place]. Appears to have more difficulty recalling information. Medications Allergies Allergies Allergy/AdvReac Type Severity Reaction Status Date / Time bee pollen [BEE STINGS] Allergy Unknown UNKNOWN Verified 07/10/24 09:11 morphine [MORPHINE] Allergy Unknown UNKNOWN Verified 07/10/24 09:11 Penicillins [PENICILLINS] Allergy Unknown UNKNOWN Verified 07/10/24 09:11 Assessment & Plan Assessment & Plan (1) MDD (major depressive disorder), recurrent episode, moderate: Status: Acute Code(s): F33.1 - Major depressive disorder, recurrent, moderate (2) Major neurocognitive disorder: Status: Acute Code(s): F03.90 - Unspecified dementia, unspecified severity, without behavioral disturbance, psychotic disturbance, mood disturbance, and anxiety Plan Ms. Jules is an 84 year-old woman who came to [facility] ED reporting nausea, vomiting and diarrhea. VNA had reported pt with hallucinations. Pt is known to this telegraphic typewriter mechanic through previous psychiatric admission back in 12/2022 for SI. She appears to have decline in terms of cognition in that her orientation seems to be off to place and situation. She also appears to have more gaps in memory and confabulating. Of concern is her ability to follow up with medical care and her ability to retain information. She has been assessed for nausea and vomiting, in the past and had been recommended to follow up with GI, but it does seem like she has not been able to do it and it seems this is related to poor memory and cognitive impairments. This telegraphic typewriter mechanic attempted to call her tomás Dustin [phone], left with call back number. PLAN 1. no need for inpt psych admission. but there is concern in terms of her cognitive impairments and declined. Also concern in terms of her ability to follow up with her own her. Total time managing care of this patient today ____ minutes.
[2024-07-11 12:11] LABS: TSH reflex Free T4 0.21 uIU/mL (0.32-4.0)
--- NOTE | 2024-07-11 12:19 | PHA.MEDREC ---
Addendum entered by Shirley Osei [facility] 07/20/24 09:38: And patient is not on lisinopril. Addendum entered by Shirley Osei [facility] 07/20/24 09:35: Patient is also not on furosemide. List updated provider made aware. Addendum entered by Shirley Osei [facility] 07/20/24 09:33: List obtained. discrepancies noticed; Amlodipine is 5 mg at 2 tablets daily, omeprazole is BID, Zyprexa is also BID and PRN Addendum entered by Daniel Graves [facility] 07/11/24 13:22: MED REC CHECKED BY [facility] Original Note: Pharmacy Consult ? Medication Reconciliation Pharmacy has completed the medication reconciliation. Confirmed medications with patient. I got a list from [facility] and the patient and I were able to confirm that the list of medications match out records.She confirmed she is taking the Lantus Solostar and confirmed she is doing 60 units daily. She also confirmed she has been taking her Amlodipine 5mg tab once daily and when I asked about that she stated They always told me to take it once daily. She confirmed she took all her medications yesterday,
[2024-07-11 14:10] LABS: Free T4 (Free Thyroxine) 1.45 ng/dL (0.71-1.85)
[2024-07-11 16:39] VITALS: BP 165/92; PULSE 111; RESP 16; TEMP 36.7; O2SAT 95
--- NOTE | 2024-07-11 17:02 | PC.NURSE ---
patient has been calm and cooperative through out the day, patient has been ambulating with staff and a walker, 1 assist, patient at times unsteady on her feet and swaying. patient has been eating her meals, drinking water. patient at times at variations of lucidity, but at other times does not remember she is here at the hospital. patient became tearful stating she wants to go home, and that shes not crazy patient states she misses her cat. patient VSS, resp even and unlabored.
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
[2024-07-11 21:42] VITALS: BP 175/95; PULSE 114; RESP 22; TEMP 36.9; O2SAT 96
--- NOTE | 2024-07-11 23:09 | PC.NURSE ---
report given to Matilda in ED overflow
[2024-07-11 23:29] VITALS: BP 156/54; PULSE 105; RESP 16; TEMP 36.9; O2SAT 95
--- NOTE | 2024-07-11 23:30 | MHC.EDTECH ---
This pct assumed care of Patient at 2300 ,,patient was assisted to bathroom ,void care given ,vitals taken ,patient calm and cooperative .
[2024-07-11] MEDS: Lidocaine 4 % Patch ADH..PATCH 1 PATCH TRANSDERMA (23:31)
[2024-07-11 23:57] LABS: Glucose, Whole Blood 142 mg/dL (60-115)
[2024-07-12] VITALS (8 sets, daily range): BP systolic 117–155; BP diastolic 56–87; PULSE 98–113; RESP 16–20; TEMP 36.5–37.2; O2SAT 92–95
--- NOTE | 2024-07-12 00:08 | PC.NURSE ---
This RN assumed pt care @ 0000 Pt a&ox3, no signs of distress. Plan of care ongoing.
--- NOTE | 2024-07-12 00:58 | PC.NURSE ---
Pt attempting to get oob, pt redirected back into bed. Bed alarm placed. Plan of care ongoing.
--- NOTE | 2024-07-12 01:01 | PC.NURSE ---
Pt attempting to get oob. Pt assisted to restroom with walker Pt assisted back into bed Plan of care ongoing.
--- NOTE | 2024-07-12 01:57 | PC.NURSE ---
Pt attempting to get out oob. Pt assisted to the restroom per pts request. Once in the restroom pt reports she does not need to use the bathroom Pt assisted back to bed. Bed alarm placed. Plan of care ongoing.
[2024-07-12] MEDS: OLANZapine ODT 10 MG TAB.RAPDIS TRANSLINGU ×2 (02:04→23:33)
--- NOTE | 2024-07-12 03:34 | PC.NURSE ---
Pt continues to get oob. Pt redirected but then immediately attempts to get oob. Pt having visual and auditory hallucinations Charge informed. Plan of care ongoing.
[2024-07-12] MEDS: Ziprasidone 60 MG CAPSULE PO (05:25)
[2024-07-12] MEDS: Levothyroxine Sodium 112 MCG TABLET PO (05:27)
[2024-07-12] MEDS: Omeprazole 20 MG CAPSULE.DR PO (05:30)
--- NOTE | 2024-07-12 05:37 | PC.NURSE ---
Pt medicated per [facility] Plan of care ongoing.
--- NOTE | 2024-07-12 06:25 | PC.NURSE ---
Pt medicated per sep. This RN sat with pt for 30 mins, as pt continued to get oob. Plan of care ongoing.
[2024-07-12] MEDS: amLODIPine Besylate 5 MG TABLET PO (08:36)
[2024-07-12] MEDS: buPROPion HCl XL 300 MG TAB.ER.24H PO (08:36)
[2024-07-12] MEDS: Cholecalciferol (Vitamin D3) 25 MCG TABLET 50 MCG PO (08:36)
[2024-07-12 08:41] LABS: Glucose, Whole Blood 118 mg/dL (60-115)
[2024-07-12] MEDS: lisinopriL 40 MG TABLET PO (08:46)
[2024-07-12] MEDS: buPROPion HCl XL 150 MG TAB.ER.24H PO (08:46)
[2024-07-12] MEDS: Aspirin 81 MG TAB.CHEW PO (08:46)
--- NOTE | 2024-07-12 08:57 | PC.NURSE ---
Gave PO meds available in overflow has not received breakfast so holding lantus until she eats.
[2024-07-12] MEDS: FLUoxetine HCl 20 MG CAPSULE 40 MG PO (10:15)
[2024-07-12] MEDS: OLANZapine 5 MG TABLET PO (10:16)
[2024-07-12] MEDS: Furosemide 40 MG TABLET PO (10:17)
[2024-07-12] MEDS: Nystatin Powder 15 GM BOTTLE 1 APPL TOPICAL ×2 (10:17→23:32)
--- NOTE | 2024-07-12 10:59 | PC.NURSE ---
patient moved over from overflow pt very drowsy at this time, unable to answer questions, respirations even and unlabored, sating between 93-92% on room air
--- NOTE | 2024-07-12 11:56 | MHC.CM.PN ---
Addendum entered by Kylah Noble 07/12/24 12:16: Received call back from Viktoria, pt's SPECIAL DELIVERY CLERK from [employer]: Per Viktoria, pt receives 3 hours of SPECIAL DELIVERY CLERK care M-F and 2 RN visits in the am and pm. Viktoria states pt is very independent and has no supports other than the VNA. Viktoria referred to pt as odd and forgetful at times but attributed that to her difficult upbringing and life situations. She felt pt could remain at home with more supports including evening/night aides. Viktoria stated that pt had been to [facility] this past summer but did not have a good experience. Viktoria notes that pt would not manage well at a SNF d/t her 'independent spirit' and would misbehave MOCA/ACL evals to occur on 07/14. Addendum entered by Kylah Noble 07/12/24 12:04: Message left for Viktoria ([phone]) requesting callback - no return message noted in [facility] from [employer] re: home care needs Original Note: Pt continues boarding in the ED: seen by clinical psychologist and noted to have memory impairment. Order placed for MOCA and ACL evals (which will not occur until 07/14) to determine if pt is safe and able to function at home. Pt listed her grandson Dustin as her proxy: per review of notes, Dustin does not wish to serve in this role. If pt is unable to complete a new HCP, pt may need a court appointed guardian. No SNF referrals have been placed at this time pending results of MOCA/ACL. CM to call pt's SPECIAL DELIVERY CLERK to inquire on pt's functional abilities at home.
--- NOTE | 2024-07-12 13:14 | PC.NURSE ---
pt continuos on being drowsy/sleepy, pt was incontinent of large amount of urine, pt cleaned up, pt does have some redness in the left side of pt's groin area and some redness under the left breast, also some redness noticed to the pt's mid-upper coccyx area-blanchable and skin break down at this time, pt positioned to the left side and puriwick put in place pt's personal large white blanket is soiled so will be getting washed in the pod's washing matchine
[2024-07-12 13:22] LABS: Glucose, Whole Blood 155 mg/dL (60-115)
--- NOTE | 2024-07-12 13:29 | PC.NURSE ---
speech at bedside but uncertainly the pt is to sleepy to participate in her evaluation
--- NOTE | 2024-07-12 13:54 | MHC.SLORD ---
Speech Language Pathology Order Status: PRESS MAINTAINER attempted to see this Pt, but she is fast asleep and not opening her eyes to voice or light touch. Per RN, she received sedation last night. PRESS MAINTAINER service is closed for [place]. We return morning.
--- NOTE | 2024-07-12 17:09 | PC.NURSE ---
Patient has been sleeping since this am. Patient wakes up and takes pills with glen lenore. Need to sit her straight up to take pills.
[2024-07-12 18:23] LABS: Glucose, Whole Blood 139 mg/dL (60-115)
--- NOTE | 2024-07-12 18:48 | PC.NURSE ---
Patient has been waking up to void forgets she has a purewick. bed alarm on and video camera on.
[2024-07-12] MEDS: Atorvastatin Calcium 10 MG TABLET PO (23:33)
[2024-07-13 06:37] VITALS: BP 150/74; PULSE 102; RESP 16; TEMP 36.3; O2SAT 94
[2024-07-13 07:57] VITALS: BP 151/75; PULSE 105; RESP 16; TEMP 36.7; O2SAT 94
[2024-07-13] MEDS: Aspirin 81 MG TAB.CHEW PO (08:05)
[2024-07-13] MEDS: FLUoxetine HCl 20 MG CAPSULE 40 MG PO (08:05)
[2024-07-13] MEDS: Cholecalciferol (Vitamin D3) 25 MCG TABLET 50 MCG PO (08:05)
[2024-07-13] MEDS: OLANZapine 5 MG TABLET PO (08:05)
[2024-07-13] MEDS: buPROPion HCl XL 300 MG TAB.ER.24H PO (08:05)
[2024-07-13] MEDS: buPROPion HCl XL 150 MG TAB.ER.24H PO (08:05)
[2024-07-13] MEDS: Omeprazole 20 MG CAPSULE.DR PO (08:05)
[2024-07-13] MEDS: amLODIPine Besylate 5 MG TABLET PO (08:06)
[2024-07-13] MEDS: Insulin Glargine,Hum.rec.anlog 100 UNIT/ML 10 ML VIAL 60 UNIT SUBCUT (08:06)
[2024-07-13] MEDS: lisinopriL 40 MG TABLET PO (08:06)
[2024-07-13] MEDS: Levothyroxine Sodium 112 MCG TABLET PO (08:06)
[2024-07-13] MEDS: Furosemide 40 MG TABLET PO (08:06)
--- NOTE | 2024-07-13 08:15 | PC.NURSE ---
patient is sitting up in bed, high semi fowlers, patient is alert when name is said but other then that mumbles/rambles with eyes closed. patient able to take meds whole with water when coached. patient linens clean and dry, bed exit alarm on. this RN cut patients food into small pieces. resp even and unlabored, skin dry and intact, VSS
[2024-07-13 08:16] LABS: Glucose, Whole Blood 149 mg/dL (60-115)
[2024-07-13 14:19] VITALS: BP 134/77; PULSE 106; RESP 18; TEMP 37.1; O2SAT 93
--- NOTE | 2024-07-13 17:29 | PC.NURSE ---
patient has been resting through out the day, patient at this time needs someone to feed 1:1 to ensure she eats. patient becomes alert when name is said, often mumbles to self or rambles to staff but not much makes sense. patient is alert to self only, purewick in place, VSS, resp even and unlabored. bed alarm on for safety
[2024-07-13 20:51] VITALS: BP 155/85; PULSE 102; RESP 16; O2SAT 88
[2024-07-13 22:28] VITALS: BP 160/82; PULSE 106; RESP 16; TEMP 37.4; O2SAT 91
--- NOTE | 2024-07-14 03:26 | PC.NURSE ---
Patient resting comfortably in a hospital bed, respirations even and unlabored, no s/s of distress noted. Patient denies any pain discomfort. Purewick in place, bed is in lowest position, bed alarm engaged, call rueda in patient's reach.
[2024-07-14] MEDS: Levothyroxine Sodium 112 MCG TABLET PO (05:52)
[2024-07-14] MEDS: Omeprazole 20 MG CAPSULE.DR PO (05:52)
--- NOTE | 2024-07-14 06:03 | PC.NURSE ---
Patient is alert, oriented to self only. Patient denies any pain. Patient medicated per MAR. Purewick in place, mary care provided, barrier cream applied to reddened, fragile skin on b/l buttocks, call rueda in reach, bed alarm engaged for fall prevention.
[2024-07-14 06:20] VITALS: BP 164/89; PULSE 108; RESP 18; TEMP 36.6; O2SAT 92
[2024-07-14 08:51] LABS: Glucose, Whole Blood 106 mg/dL (60-115)
[2024-07-14 08:55] VITALS: BP 173/87; PULSE 110; RESP 16; O2SAT 93
[2024-07-14] MEDS: lisinopriL 40 MG TABLET PO (08:57)
[2024-07-14] MEDS: Furosemide 40 MG TABLET PO (08:57)
[2024-07-14] MEDS: FLUoxetine HCl 20 MG CAPSULE 40 MG PO (08:57)
[2024-07-14] MEDS: OLANZapine 5 MG TABLET PO (08:57)
[2024-07-14] MEDS: buPROPion HCl XL 150 MG TAB.ER.24H PO (08:57)
[2024-07-14] MEDS: Aspirin 81 MG TAB.CHEW PO (08:57)
[2024-07-14] MEDS: amLODIPine Besylate 5 MG TABLET PO (08:57)
[2024-07-14] MEDS: Cholecalciferol (Vitamin D3) 25 MCG TABLET 50 MCG PO (08:57)
[2024-07-14] MEDS: Insulin Glargine,Hum.rec.anlog 100 UNIT/ML 10 ML VIAL 60 UNIT SUBCUT (08:58)
[2024-07-14] MEDS: Nystatin Powder 15 GM BOTTLE 1 APPL TOPICAL (09:04)
[2024-07-14] MEDS: buPROPion HCl XL 300 MG TAB.ER.24H PO (11:05)
--- NOTE | 2024-07-14 12:44 | MHC.CM.ED ---
Patient remains in ER. Waiting for MOCA and ACL to be performed. Ev OT, will see patient as soon as she can. Most likely assessment will be conducted tomorrow 07/15. Continue to monitor for d/c needs.
--- NOTE | 2024-07-14 14:37 | MHC.SL.SWA ---
Speech Pathologist Impression: Risk of Aspiration Oral Phase Dysphagia Risk of Aspiration Due to: Poor PO Intake Reduced Cognition Dysphasia Diet Status: Liquid Consistency and Strategies for Safe Swallow: Liquid Intake Recommendation: Thin Liquid Intake Strategies: Small Sips No Straws Solid Food Consistency: Dietary Recommendations: Grnd/Mech Altered (NDD2) Additional Modifications to Solid Foods: Patient requires direct supervision with cuing and assistance at meals (may not eat if left alone with tray of food). Liquids by cup sip only, no straws. Oral Medication Intake: Whole with Liquid Please contact the pharmacy regarding appropriate crushable or liquid drug formulations that are available whenever modified delivery is recommended. Compensatory Strategies and Precautions to be Taken for Safe Swallow: Sitting Upright (90 deg) No Straw Liquids from Cup Small Bites and Sips Alternate Liquids/Solids Supervision While Eating and Drinking for Safe Swallow: Total Supervision (1:1) Foods to Avoid: Hard, difficult to chew solids. Swallowing Recommended Treatments: Compens. Strategy Educat. Recommendation for Speech: Inpatient Speech Therapy Comment: Patient presents as highly confused, waxing an waning orientation, had waxing/waning lability throughout today's evaluation. Patient has mild oral phase dysphagia due to edentulous state, but is at risk for dysphagia/Adult FTT secondary to level of confusion. Recommend downgrade diet to Ground/Mechanical (NDD2), continue on thin liquids, pills whole with liquid. Provide patient with supervision at meals with orientation to tray, cuing and assistance as needed to have patient progress with meal. Liquids by cups sip, no straws. FAMILY AND CONSUMER SCIENCE PROFESSOR will continue to follow. Frequency/Duration: M-F Date Range for Service Req: Timeline to reassess: Industrial Therapist Clinican/Clinical Fellow: No Supervisory Statement: I have reviewed and agree with the student/clinical fellow's documentation: N/A Speech Language Pathologist: Trinh Augustin M.A., CCC-FAMILY AND CONSUMER SCIENCE PROFESSOR
[2024-07-14 15:43] VITALS: BP 142/75; PULSE 109; RESP 16; TEMP 36.8; O2SAT 92
--- NOTE | 2024-07-14 17:47 | PC.NURSE ---
Pt cleaned, incontinent of urine, purewick was not in place. Pt needing frequent reassurance.
--- NOTE | 2024-07-14 21:30 | PC.NURSE ---
pt incont. assist with washing and changing bed
[2024-07-14] MEDS: Atorvastatin Calcium 10 MG TABLET PO (21:40)
--- NOTE | 2024-07-14 22:54 | MHC.EDTECH ---
Pt assisted with meal, ate 6 spoons of mashed potatos, 4 spoons of ground chicken, one vanilla pudding, one cranberry and one cup of water.
[2024-07-15] VITALS (7 sets, daily range): BP systolic 119–127; BP diastolic 56–68; PULSE 86–104; RESP 14–19; TEMP 36.8–37.1; O2SAT 91–93
--- NOTE | 2024-07-15 03:15 | PC.NURSE ---
pt incont of urine, assist with changing bed, pt washed and changed. new purewick in place with mesh underwear to hold in place. pt now resting comfortably
[2024-07-15] MEDS: Levothyroxine Sodium 112 MCG TABLET PO (06:41)
[2024-07-15] MEDS: Omeprazole 20 MG CAPSULE.DR PO (06:41)
[2024-07-15 08:37] LABS: Glucose, Whole Blood 96 mg/dL (60-115)
[2024-07-15] MEDS: buPROPion HCl XL 150 MG TAB.ER.24H PO (08:38)
[2024-07-15] MEDS: OLANZapine 5 MG TABLET PO (08:38)
[2024-07-15] MEDS: Cholecalciferol (Vitamin D3) 25 MCG TABLET 50 MCG PO (08:38)
[2024-07-15] MEDS: Furosemide 40 MG TABLET PO (08:38)
[2024-07-15] MEDS: Aspirin 81 MG TAB.CHEW PO (08:39)
[2024-07-15] MEDS: amLODIPine Besylate 5 MG TABLET PO (08:39)
[2024-07-15] MEDS: FLUoxetine HCl 20 MG CAPSULE 40 MG PO (08:39)
[2024-07-15] MEDS: lisinopriL 40 MG TABLET PO (08:39)
[2024-07-15] MEDS: Insulin Glargine,Hum.rec.anlog 100 UNIT/ML 10 ML VIAL 60 UNIT SUBCUT (08:39)
[2024-07-15] MEDS: buPROPion HCl XL 300 MG TAB.ER.24H PO (08:59)
[2024-07-15] MEDS: Nystatin Powder 15 GM BOTTLE 1 APPL TOPICAL ×2 (08:59→21:25)
[2024-07-15 14:00] LABS: Glucose, Whole Blood 130 mg/dL (60-115)
--- NOTE | 2024-07-15 15:31 | MHC.SL.SWA ---
Speech Pathologist Impression: Risk of Aspiration Oral Phase Dysphagia Risk of Aspiration Due to: Poor PO Intake Reduced Cognition Dysphasia Diet Status: No Change Liquid Consistency and Strategies for Safe Swallow: Liquid Intake Recommendation: Thin Liquid Intake Strategies: Small Sips No Straws Solid Food Consistency: Dietary Recommendations: Grnd/Mech Altered (NDD2) Additional Modifications to Solid Foods: Patient requires direct supervision with cuing and assistance at meals (may not eat if left alone with tray of food). Liquids by cup sip only, no straws. Oral Medication Intake: Whole with Liquid Please contact the pharmacy regarding appropriate crushable or liquid drug formulations that are available whenever modified delivery is recommended. Compensatory Strategies and Precautions to be Taken for Safe Swallow: Sitting Upright (90 deg) No Straw Small Bites and Sips Alternate Liquids/Solids Rate of Ingestion Change Avoid Specific Foods Supervision While Eating and Drinking for Safe Swallow: Total Supervision (1:1) Foods to Avoid: Hard, difficult to chew solids. Swallowing Recommended Treatments: Compens. Strategy Educat. Recommendation for Speech: Inpatient Speech Therapy Comment: Patient presents as highly confused, waxing an waning orientation, had waxing/waning lability throughout today's evaluation. Patient has mild oral phase dysphagia due to edentulous state, but is at risk for dysphagia/Adult FTT secondary to level of confusion. Recommend Ground/Mechanical (NDD2) diet and thin liquids, pills whole with liquid. Provide patient with supervision at meals with orientation to tray, cuing and assistance as needed to have patient progress with meal. Liquids by cups sip, no straws. POWER MULE OPERATOR will continue to follow. Frequency/Duration: M-F Date Range for Service Req: Timeline to reassess: Spring Former Machine Clinican/Clinical Fellow: No Supervisory Statement: I have reviewed and agree with the student/clinical fellow's documentation: N/A Speech Language Pathologist: Ina Goldberg M.A., CCC-POWER MULE OPERATOR
[2024-07-15 17:40] LABS: Glucose, Whole Blood 72 mg/dL (60-115)
[2024-07-15 17:40] LABS: Glucose, Whole Blood 45 mg/dL (60-115)
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
[2024-07-15 18:28] LABS: Glucose, Whole Blood 145 mg/dL (60-115)
--- NOTE | 2024-07-15 19:59 | PC.NURSE ---
Report taken from Cherise VANESSA assumed care of pt at 1930. Pt resting eyes closed in hospital bed, skin pwd respirations even unlabored. VSS. PT/CM, awaiting psych consult. Will continue to monitor.
--- NOTE | 2024-07-15 19:59 | PC.NURSE ---
pt drowsy much of the day and ate poorly, she did drink some diet gingerale and water. This evening pt more drowsy and mildly mumbling. POC taken and was 45. Pt given OJ and roused enough to eat dinner. repeat poc 72. MD Aysha Del Angel aware and POC's ordered. 2nd repeat poc 122.
[2024-07-15] MEDS: Atorvastatin Calcium 10 MG TABLET PO (21:25)
--- NOTE | 2024-07-15 21:57 | PC.NURSE ---
Pt awakened for scheduled night meds, awoke easily, drank full cup of water with med. Offers no complaints. Repositioned for comfort. POC 160. Will continue to monitor.
[2024-07-15 22:03] LABS: Glucose, Whole Blood 160 mg/dL (60-115)
[2024-07-16] MEDS: Omeprazole 20 MG CAPSULE.DR PO (05:49)
[2024-07-16] MEDS: Levothyroxine Sodium 112 MCG TABLET PO (05:49)
[2024-07-16 06:03] VITALS: BP 147/74; PULSE 103; RESP 16; TEMP 37.1; O2SAT 92
--- NOTE | 2024-07-16 06:29 | PC.NURSE ---
Assumed care of patient at 2300. Patient resting comfortably, able to make needs known. Call rueda within reach.
[2024-07-16 07:53] LABS: Glucose, Whole Blood 63 mg/dL (60-115)
--- NOTE | 2024-07-16 08:22 | MHC.EDTECH ---
pt was assisted with 1:1 feeding for breakfast. pt ate 50% of breakfast when then stated she is full, RN aware
[2024-07-16] MEDS: amLODIPine Besylate 5 MG TABLET PO (08:47)
[2024-07-16] MEDS: lisinopriL 40 MG TABLET PO (08:47)
[2024-07-16] MEDS: Aspirin 81 MG TAB.CHEW PO (08:48)
[2024-07-16] MEDS: FLUoxetine HCl 20 MG CAPSULE 40 MG PO (08:48)
[2024-07-16] MEDS: buPROPion HCl XL 150 MG TAB.ER.24H PO (08:48)
[2024-07-16] MEDS: Furosemide 40 MG TABLET PO (08:48)
[2024-07-16] MEDS: buPROPion HCl XL 300 MG TAB.ER.24H PO (08:48)
[2024-07-16] MEDS: Cholecalciferol (Vitamin D3) 25 MCG TABLET 50 MCG PO (08:48)
[2024-07-16] MEDS: OLANZapine 5 MG TABLET PO (08:48)
[2024-07-16] MEDS: Nystatin Powder 15 GM BOTTLE 1 APPL TOPICAL ×2 (08:51→22:32)
[2024-07-16 11:29] VITALS: BP 135/61; PULSE 106; RESP 16; TEMP 37.2; O2SAT 95
--- NOTE | 2024-07-16 12:19 | MHC.EDTECH ---
pt was assisted with feeding for lunch, pt consumed 10% of tray when stating she was full, RN aware
[2024-07-16 16:25] VITALS: BP 140/64; PULSE 100; RESP 16; TEMP 36.7; O2SAT 97
--- NOTE | 2024-07-16 16:45 | MHC.EDTECH ---
This pct assumed care of Patient at 1500 ,vitals taken ,Patient was incontinent of urine ,sponge bath given ,and bedding change ,Patient was assisted to sit in recliner ,Blood sugar check 46 ,rn aware ,Patient drank 240 ml orange juice .
[2024-07-16 16:52] LABS: Glucose, Whole Blood 46 mg/dL (60-115)
[2024-07-16 16:52] LABS: Glucose, Whole Blood 92 mg/dL (60-115)
--- NOTE | 2024-07-16 17:27 | MHC.EDTECH ---
Patient blood sugar recheck it was 134.RN Kita aware .Patient ate 50 % of meal at drank 240 ml glen lenore .
[2024-07-16 17:30] LABS: Glucose, Whole Blood 134 mg/dL (60-115)
[2024-07-16 19:21] VITALS: BP 111/68; PULSE 95; RESP 16; TEMP 36.8; O2SAT 92
[2024-07-16] MEDS: Atorvastatin Calcium 10 MG TABLET PO (22:32)
[2024-07-17 00:30] VITALS: BP 123/78; PULSE 78; RESP 16; TEMP 36.9; O2SAT 97
--- NOTE | 2024-07-17 00:36 | MHC.EDTECH ---
This pct assumed care of Patient at 0000 ,Patient was a max asst of 2 to bedside commode ,void ,Parris care given ,Patient was assisted back to bed ,vitals taken and blood sugar check ,it was 80 ,RN Carol aware ,Patient had orange juice and ice cream for snack .
[2024-07-17 00:37] LABS: Glucose, Whole Blood 80 mg/dL (60-115)
[2024-07-17] MEDS: OLANZapine ODT 10 MG TAB.RAPDIS TRANSLINGU (02:00)
[2024-07-17] MEDS: Levothyroxine Sodium 112 MCG TABLET PO (06:20)
[2024-07-17 06:21] VITALS: BP 119/77; PULSE 98; RESP 18; TEMP 36.9; O2SAT 93
[2024-07-17] MEDS: Omeprazole 20 MG CAPSULE.DR PO (07:19)
[2024-07-17 07:21] VITALS: BP 142/84; PULSE 99; RESP 18; O2SAT 94
[2024-07-17 07:28] LABS: Glucose, Whole Blood 87 mg/dL (60-115)
--- NOTE | 2024-07-17 09:02 | MHC.EDTECH ---
this tech assumed care of pt at 0700, pt ate breakfast prior to arrival to ED overflow, this tech and nurse washed pt and provided all new linens and gown, pt remains comfortable in bed watching tv. pt given fluids via straw (1:1 feed), all needs met at this time
[2024-07-17] MEDS: buPROPion HCl XL 300 MG TAB.ER.24H PO (09:16)
[2024-07-17] MEDS: Aspirin 81 MG TAB.CHEW PO (09:17)
[2024-07-17] MEDS: lisinopriL 40 MG TABLET PO (09:17)
[2024-07-17] MEDS: OLANZapine 5 MG TABLET PO (09:17)
[2024-07-17] MEDS: Cholecalciferol (Vitamin D3) 25 MCG TABLET 50 MCG PO (09:17)
[2024-07-17] MEDS: buPROPion HCl XL 150 MG TAB.ER.24H PO (09:17)
[2024-07-17] MEDS: Furosemide 40 MG TABLET PO (09:17)
[2024-07-17] MEDS: FLUoxetine HCl 20 MG CAPSULE 40 MG PO (09:17)
[2024-07-17] MEDS: amLODIPine Besylate 5 MG TABLET PO (09:17)
[2024-07-17] MEDS: Nystatin Powder 15 GM BOTTLE 1 APPL TOPICAL ×2 (09:36→20:49)
[2024-07-17 12:00] LABS: Glucose, Whole Blood 106 mg/dL (60-115)
--- NOTE | 2024-07-17 12:06 | MHC.EDTECH ---
pt POC taken (result- 106), RN aware, lunch tray provided, 1:1 feed, pt tolerated well, ate 80%
[2024-07-17 15:37] VITALS: BP 138/68; PULSE 100; RESP 16; TEMP 36.9; O2SAT 95
[2024-07-17 16:34] LABS: Glucose, Whole Blood 120 mg/dL (60-115)
--- NOTE | 2024-07-17 18:10 | MHC.EDTECH ---
Patient was fed ate 75 5 of meal ,and drank 240 ml fluids ,Patient awake and laying in bed ,Plan of care continue .
[2024-07-17] MEDS: Atorvastatin Calcium 10 MG TABLET PO (20:48)
[2024-07-17 20:58] LABS: Glucose, Whole Blood 166 mg/dL (60-115)
[2024-07-17 22:00] VITALS: BP 154/70; PULSE 106; RESP 16; TEMP 36.6; O2SAT 92
[2024-07-18 00:18] VITALS: BP 154/98; PULSE 100; RESP 18; TEMP 36.6; O2SAT 95
[2024-07-18] MEDS: OLANZapine ODT 10 MG TAB.RAPDIS TRANSLINGU (01:06)
[2024-07-18 02:07] VITALS: RESP 18
--- NOTE | 2024-07-18 04:07 | PC.NURSE ---
Assumed care of patient at 23:15. Patient seen in ED overflow for AMS and visual hallucinations. Alert and self-dialoguing, only oriented to her name. Agitated overnight, frequently observed attempting to exit the bed and removing her hospital clothing. Pt was given prn DIS zyprexa with some effectiveness. Pt remains confused, disoriented, and impulsive though no longer agitated since administered. Requires frequent redirecting and repositioning in bed. Speech is clear. +radial and dp pulses, +cms. -edema. VSS. No pain reported, no visible distress. Breathing is even and unlabored on room air. +BSx4. Incontinent of urine, care provided. No n/v noted. Bed alarm on and safety measures in place.
[2024-07-18 05:24] VITALS: BP 147/66; PULSE 100; RESP 16; TEMP 36.9; O2SAT 95
--- NOTE | 2024-07-18 05:53 | MHC.EDTECH ---
0600 rounding done ,vitals taken ,Pt was awake all night ,attempting to climb out of bed ,Patient was incontinent of urine ,care given and bed pads and gown change ,Patient was assisted with fluids ,drank 120 ml orange juice ,warm blanket given .all safety measure in Place ,Plan of care continue .
[2024-07-18] MEDS: Omeprazole 20 MG CAPSULE.DR PO (06:34)
[2024-07-18] MEDS: Levothyroxine Sodium 112 MCG TABLET PO (06:34)
[2024-07-18 07:45] LABS: Glucose, Whole Blood 195 mg/dL (60-115)
[2024-07-18 08:12] VITALS: BP 147/83; PULSE 101; RESP 16; TEMP 37; O2SAT 93
[2024-07-18] MEDS: buPROPion HCl XL 150 MG TAB.ER.24H PO (08:33)
[2024-07-18] MEDS: Furosemide 40 MG TABLET PO (08:33)
[2024-07-18] MEDS: lisinopriL 40 MG TABLET PO (08:33)
[2024-07-18] MEDS: amLODIPine Besylate 5 MG TABLET PO (08:33)
[2024-07-18] MEDS: Aspirin 81 MG TAB.CHEW PO (08:33)
[2024-07-18] MEDS: buPROPion HCl XL 300 MG TAB.ER.24H PO (08:34)
[2024-07-18] MEDS: Insulin Glargine,Hum.rec.anlog 100 UNIT/ML 10 ML VIAL 60 UNIT SUBCUT (08:34)
[2024-07-18] MEDS: Cholecalciferol (Vitamin D3) 25 MCG TABLET 50 MCG PO (08:34)
--- NOTE | 2024-07-18 08:54 | MHC.EDTECH ---
Patient bedding clean and dry. New brief applied to patient. Patient states she is comfortable. Patient resting. Call rueda placed within reach.
--- NOTE | 2024-07-18 08:58 | PC.NURSE ---
Awaiting overdue meds. per pharmacy at this time.
--- NOTE | 2024-07-18 10:20 | MHC.EDTECH ---
Patient repositioned for comfort. Call rueda placed within reach.
[2024-07-18] MEDS: OLANZapine 5 MG TABLET PO (10:41)
[2024-07-18] MEDS: FLUoxetine HCl 20 MG CAPSULE 40 MG PO (10:41)
--- NOTE | 2024-07-18 10:42 | MHC.SL.SWA ---
Speech Pathologist Impression: Risk of Aspiration Oral Phase Dysphagia Risk of Aspiration Due to: Poor PO Intake Reduced Cognition Dysphasia Diet Status: Liquid Consistency and Strategies for Safe Swallow: Liquid Intake Recommendation: Thin Liquid Intake Strategies: Small Sips No Straws Solid Food Consistency: Dietary Recommendations: Grnd/Mech Altered (NDD2) Additional Modifications to Solid Foods: Patient requires direct supervision with cuing and assistance at meals (may not eat if left alone with tray of food). Cue prior to giving liquids, encourage steady pacing, straws ok. Oral Medication Intake: Whole with Puree Please contact the pharmacy regarding appropriate crushable or liquid drug formulations that are available whenever modified delivery is recommended. Compensatory Strategies and Precautions to be Taken for Safe Swallow: Sitting Upright (90 deg) Liquids from Cup Liquids from Straw Small Bites and Sips Alternate Liquids/Solids Rate of Ingestion Change Avoid Specific Foods Supervision While Eating and Drinking for Safe Swallow: Total Supervision (1:1) Foods to Avoid: Difficult to chew, stringy solids Swallowing Recommended Treatments: Compens. Strategy Educat. Recommendation for Speech: Inpatient Speech Therapy Comment: Pt will need continued BUZZLE BUFFER assessment to reduce risk for aspiration d/t significance of cognitive decline, 1:1 feeding by skilled facility staff. Frequency/Duration: M-F Date Range for Service Req: Timeline to reassess: Creative Resource Manager Clinican/Clinical Fellow: No Supervisory Statement: I have reviewed and agree with the student/clinical fellow's documentation: N/A Speech Language Pathologist: Alva Rodriguez M.S., CCC-BUZZLE BUFFER
[2024-07-18] MEDS: Nystatin Powder 15 GM BOTTLE 1 APPL TOPICAL (10:47)
[2024-07-18 12:29] LABS: Glucose, Whole Blood 123 mg/dL (60-115)
[2024-07-18 16:55] LABS: Glucose, Whole Blood 108 mg/dL (60-115)
[2024-07-18 16:57] VITALS: BP 144/62; PULSE 62; RESP 16; TEMP 36.8; O2SAT 95
--- NOTE | 2024-07-18 16:58 | MHC.EDTECH ---
This pct assumed care of Patient at 1500 ,Patient sleeping ,blood sugar check and vitals taken ,All safety measure in Place .
[2024-07-18 20:35] LABS: Glucose, Whole Blood 69 mg/dL (60-115)
[2024-07-18 20:53] VITALS: BP 140/69; PULSE 96; RESP 20; TEMP 36.8; O2SAT 93
--- NOTE | 2024-07-18 23:26 | PC.NURSE ---
assumed care of pt, charted against atorvastatin 2100, not given my previous RN, unsure about her ability to swallow after giving orange juice. pt resting comfortably at this time,. no apparent distress noted, call mohit w/in reach
[2024-07-19 06:00] VITALS: BP 169/86; PULSE 98; RESP 17; TEMP 36.3; O2SAT 93
[2024-07-19] MEDS: Omeprazole 20 MG CAPSULE.DR PO (06:02)
[2024-07-19] MEDS: Levothyroxine Sodium 112 MCG TABLET PO (06:05)
--- NOTE | 2024-07-19 06:37 | PC.NURSE ---
pt resting comfortably in bed throughout the night, pt self repositioning from side to side periodically. no apparent distress noted at this time, call rueda w/in reach, bed alarm on
[2024-07-19 07:49] LABS: Glucose, Whole Blood 133 mg/dL (60-115)
--- NOTE | 2024-07-19 08:19 | PC.NURSE ---
POC obtained and WNL at this time. pt positioned upright - 1:1 feeding assist completed for breakfast. no difficulties in swallowing noted. pt remains upright to promote patent airway. resting in no apparent distress. no sob/wob noted. respirations even/unlabored. bed alarm turned on for safety precautions. call rueda placed within reach.
--- NOTE | 2024-07-19 08:29 | MHC.EDTECH ---
Patient got feed breakfast 1:1 , she did very well.
[2024-07-19 08:59] LABS: Appearance Urine Turbid; Color Urine Yellow; Glucose Urine UA Negative (Negative); Leukocyte Esterase Urine Large (3+) (Negative); Nitrite Urine Negative (Negative); PH 5.5 (5.0-9.0); Specific Gravity - Urine <= 1.005 (1.005-1.025); UMIC TRIGGER UACC YES; Urine Blood Moderate (2+) (Negative); Urine Ketones Negative (Negative); Urine Protein 30 (1+) mg/dL (Neg-Trace)
--- NOTE | 2024-07-19 09:02 | PC.NURSE ---
2:1 assist needed to ambulate to the restroom. urine sample obtained/sent to lab. pt assisted back into bed. repositioned to comfort. provided w/ warm blankets. bed alarm turned on for safety precautions. call rueda placed within reach.
[2024-07-19 09:14] LABS: Bacteria Urine 4+ (None Seen); Hyaline Casts Urine 0-2 /LPF (0-2); UACC Culture Trigger YES; WBC Urine >50 /HPF (0-5)
[2024-07-19] MEDS: Insulin Glargine,Hum.rec.anlog 100 UNIT/ML 10 ML VIAL 60 UNIT SUBCUT (09:53)
[2024-07-19] MEDS: Aspirin 81 MG TAB.CHEW PO (09:54)
[2024-07-19] MEDS: lisinopriL 40 MG TABLET PO (09:54)
[2024-07-19] MEDS: FLUoxetine HCl 20 MG CAPSULE 40 MG PO (09:54)
[2024-07-19] MEDS: OLANZapine 5 MG TABLET PO (09:54)
[2024-07-19] MEDS: Furosemide 40 MG TABLET PO (09:54)
[2024-07-19] MEDS: Cholecalciferol (Vitamin D3) 25 MCG TABLET 50 MCG PO (09:55)
[2024-07-19] MEDS: buPROPion HCl XL 300 MG TAB.ER.24H PO (09:55)
[2024-07-19] MEDS: amLODIPine Besylate 5 MG TABLET PO (09:55)
[2024-07-19] MEDS: buPROPion HCl XL 150 MG TAB.ER.24H PO (09:55)
[2024-07-19] MEDS: cefuroxime axetiL 250 MG TABLET PO ×2 (09:55→21:17)
[2024-07-19] MEDS: Nystatin Powder 15 GM BOTTLE 1 APPL TOPICAL ×2 (09:56→21:17)
--- NOTE | 2024-07-19 10:11 | PC.NURSE ---
delay in medication administration d/t medication not being readily available in [facility]. medication delivered from pharmacy/administered per provider order.
[2024-07-19 11:51] LABS: Glucose, Whole Blood 329 mg/dL (60-115)
[2024-07-19 13:23] LABS: Glucose, Whole Blood 277 mg/dL (60-115)
[2024-07-19 16:16] VITALS: BP 131/58; PULSE 105; RESP 20; TEMP 37.4; O2SAT 93
[2024-07-19 16:49] LABS: Glucose, Whole Blood 172 mg/dL (60-115)
--- NOTE | 2024-07-19 19:14 | PC.NURSE ---
this rn assumed care of pt, pt resting in hospital bed, no acute distress noted, pt assisted in repositioning. pt watching tv.
[2024-07-19] MEDS: Atorvastatin Calcium 10 MG TABLET PO (21:17)
--- NOTE | 2024-07-19 21:20 | PC.NURSE ---
pt medicated per mar, tolerated well whole with water, 1:1 assist.
[2024-07-19 22:14] VITALS: BP 126/64; PULSE 86; RESP 17; TEMP 37.4; O2SAT 98
[2024-07-19 22:17] LABS: Glucose, Whole Blood 154 mg/dL (60-115)
[2024-07-19 22:29] VITALS: TEMP 37.7
[2024-07-19] MEDS: Acetaminophen 325 MG TABLET 650 MG PO (22:34)
--- NOTE | 2024-07-19 22:37 | PC.NURSE ---
provider aware of pt temp, pt medicated per mar at this time, tolerated well with water. pt swabbed per provider order. pt skin warm to touch.
[2024-07-19 23:18] LABS: Influenza A PCR NEGATIVE (Negative); Influenza B PCR NEGATIVE (Negative); Resp Syncy Virus RNA Qual PCR NEGATIVE (Negative); SARS COV2 PCR INHOUSE NEGATIVE (Negative)
[2024-07-20] MEDS: Omeprazole 20 MG CAPSULE.DR PO ×2 (05:25→15:41)
[2024-07-20] MEDS: Levothyroxine Sodium 112 MCG TABLET PO (05:25)
[2024-07-20 05:44] VITALS: BP 157/76; PULSE 91; RESP 18; TEMP 36.8; O2SAT 94
[2024-07-20 07:49] VITALS: BP 161/75; PULSE 94; RESP 20; TEMP 36; O2SAT 90
[2024-07-20] MEDS: OLANZapine 5 MG TABLET PO ×2 (08:19→20:50)
[2024-07-20] MEDS: buPROPion HCl XL 150 MG TAB.ER.24H PO (08:20)
[2024-07-20] MEDS: buPROPion HCl XL 300 MG TAB.ER.24H PO (08:20)
[2024-07-20] MEDS: amLODIPine Besylate 5 MG TABLET PO (08:21)
[2024-07-20] MEDS: Furosemide 40 MG TABLET PO (08:21)
[2024-07-20] MEDS: lisinopriL 40 MG TABLET PO (08:21)
[2024-07-20] MEDS: Aspirin 81 MG TAB.CHEW PO (08:22)
[2024-07-20] MEDS: Cholecalciferol (Vitamin D3) 25 MCG TABLET 50 MCG PO (08:22)
[2024-07-20] MEDS: cefuroxime axetiL 250 MG TABLET PO ×2 (08:22→20:50)
[2024-07-20] MEDS: FLUoxetine HCl 20 MG CAPSULE 40 MG PO (08:23)
[2024-07-20 09:22] LABS: Glucose, Whole Blood 89 mg/dL (60-115)
--- NOTE | 2024-07-20 11:10 | PC.NURSE ---
received call from Rosanna White that med rec would be changed for pt. new orders acknowledged
[2024-07-20 11:29] LABS: Glucose, Whole Blood 173 mg/dL (60-115)
[2024-07-20 14:00] VITALS: BP 143/67; PULSE 98; RESP 16; TEMP 36.9; O2SAT 91
--- NOTE | 2024-07-20 15:48 | MHC.SL.SWA ---
Speech Pathologist Impression: Low risk for aspiration, oropharyngeal phase coordination WFL Oral Phase Dysphagia d/t missing dentition Risk of Aspiration Due to: Poor PO Intake Reduced Cognition Dysphasia Diet Status: Liquid Consistency and Strategies for Safe Swallow: Liquid Intake Recommendation: Thin Liquid Intake Strategies: Small Sips Solid Food Consistency: Dietary Recommendations: Grnd/Mech Altered (NDD2) Additional Modifications to Solid Foods: Patient requires direct supervision with cuing and assistance at meals (may not eat if left alone with tray of food). Cue prior to giving liquids, encourage steady pacing, straws ok. Oral Medication Intake: Whole with Puree Please contact the pharmacy regarding appropriate crushable or liquid drug formulations that are available whenever modified delivery is recommended. Compensatory Strategies and Precautions to be Taken for Safe Swallow: Sitting Upright (90 deg) Small Bites and Sips Alternate Liquids/Solids Rate of Ingestion Change Avoid Specific Foods Supervision While Eating and Drinking for Safe Swallow: Total Supervision (1:1) Foods to Avoid: Difficult to chew, stringy solids Swallowing Recommended Treatments: Compens. Strategy Educat. Recommendation for Speech: Inpatient Speech Therapy Comment: Pt see for dysphagia treatment. Pt alert and pleasantly confused, speaking at length about her family. RN consulted. No concerns with pt PO tolerance. Pt took small amounts of gingerale by straw and soft solids by tsp with adequate oropharyngeal coordination. No overt s/s of aspiration with current diet. REGIONAL SALES EXECUTIVE continues to monitor. Frequency/Duration: M-F Date Range for Service Req: Timeline to reassess: Interior Designer Clinican/Clinical Fellow: No Supervisory Statement: I have reviewed and agree with the student/clinical fellow's documentation: N/A Speech Language Pathologist: Alva Rodriguez M.S., CCC-REGIONAL SALES EXECUTIVE
[2024-07-20 16:15] LABS: Glucose, Whole Blood 130 mg/dL (60-115)
--- NOTE | 2024-07-20 16:42 | PC.NURSE ---
tech in ED contacted for lab draw
[2024-07-20 17:38] LABS: MANUAL DIFF FLAG NO
[2024-07-20 18:00] LABS: Alanine Aminotransferase 16 U/L (0-31); Albumin Level 3.3 g/dL (3.5-5.0); Alkaline Phosphatase 84 U/L (39-117); Anion Gap 15 (12-20); Aspartate Amino Transferase 24 U/L (5-31); Bilirubin Total 0.3 mg/dL (0.0-1.0); Blood Urea Nitrogen 34 mg/dL (9-16); Calcium 9.2 mg/dL (8.4-10.2); Carbon Dioxide 24 mmol/L (22-29); Chloride 105 mmol/L (96-108); Creatinine Clr Calc Pharmacy 36.1; Estimated Glomerular Filt Rate 43; Glucose Random 123 mg/dL (60-115); Sodium 140 mmol/L (135-145); Total Protein 7.5 g/dL (6.5-8.0)
[2024-07-20 18:15] LABS: Basophils Absolute Auto 0.1 X10*3/uL (0.0-0.2); Basophils Percent Auto 0.5 % (0-2); Eosinophils Absolute Auto 0.5 X10*3/uL (0.0-0.4); Eosinophils Percent Auto 2.7 % (0-4); Hematocrit 38.2 % (37.0-47.0); Hemoglobin 11.7 g/dl (12.0-16.0); Imm Gran Abs Auto 0.23 X10*3/uL (0.00-0.03); Imm Gran Pct Auto 1.3 % (0.0-0.4); Lymphocytes Absolute Auto 1.9 X10*3/uL (1.2-4.9); Mean Corpuscular HGB Conc 30.6 g/dl (31.0-35.0); Mean Platelet Volume 9.7 fL (9.4-12.3); Monocytes Percent Auto 5.5 % (2-11); Neutrophils Absolute Auto 13.9 x10*3/uL (2.0-8.3); Platelet Count 858 X10*3/uL (160-400); Red Blood Count 5.09 X10*6/uL (4.20-5.50); Red Cell Distribution Width 16.4 % (11.0-16.0); White Blood Count 17.6 X10*3/uL (4.8-10.8)
[2024-07-20] MEDS: Atorvastatin Calcium 10 MG TABLET PO (20:49)
[2024-07-20] MEDS: Nystatin Powder 15 GM BOTTLE 1 APPL TOPICAL (20:54)
[2024-07-20 21:01] LABS: Glucose, Whole Blood 139 mg/dL (60-115)
[2024-07-20 21:36] VITALS: BP 138/77; PULSE 100; RESP 16; TEMP 37.3; O2SAT 93
--- NOTE | 2024-07-20 21:46 | PC.NURSE ---
pt resting in bed watching tv, medicated per SEP. tolerated well. nystatin applied to under breasts and stomach, areas look dry and clean with minimal redness noted at this time
[2024-07-21 06:00] VITALS: BP 182/81; PULSE 110; RESP 18; TEMP 36.9; O2SAT 94
[2024-07-21] MEDS: Levothyroxine Sodium 112 MCG TABLET PO (06:09)
[2024-07-21] MEDS: Omeprazole 20 MG CAPSULE.DR PO ×2 (06:09→15:59)
--- NOTE | 2024-07-21 06:45 | PC.NURSE ---
pt reporting L wrist pain, area warm, red, tender and painful to move
[2024-07-21 07:25] LABS: Glucose, Whole Blood 138 mg/dL (60-115)
[2024-07-21] MEDS: buPROPion HCl XL 300 MG TAB.ER.24H PO (08:58)
[2024-07-21 08:59] VITALS: BP 132/97
[2024-07-21] MEDS: amLODIPine Besylate 5 MG TABLET 10 MG PO (08:59)
[2024-07-21] MEDS: buPROPion HCl XL 150 MG TAB.ER.24H PO (08:59)
[2024-07-21] MEDS: Cholecalciferol (Vitamin D3) 25 MCG TABLET 50 MCG PO (09:00)
[2024-07-21] MEDS: Aspirin 81 MG TAB.CHEW PO (09:00)
[2024-07-21] MEDS: FLUoxetine HCl 20 MG CAPSULE 40 MG PO (09:01)
[2024-07-21] MEDS: OLANZapine 5 MG TABLET PO ×2 (09:01→20:59)
[2024-07-21] MEDS: Insulin Glargine,Hum.rec.anlog 100 UNIT/ML 10 ML VIAL 60 UNIT SUBCUT (09:02)
[2024-07-21] MEDS: cefuroxime axetiL 250 MG TABLET PO ×2 (09:02→20:59)
--- NOTE | 2024-07-21 09:06 | MHC.CM.ED ---
Patient remains in ER overflow. Patient does not have capacity to make her own decisions. Bella Heaton CM Director is working on completing guardianship and José Manuel's order paperwork. Anticipate patient will need LTC. Will need guardianship before LTC can be found. Continue to monitor for d/c neeeds.
--- NOTE | 2024-07-21 10:06 | PC.NURSE ---
Pt continues to report left wrist pain, area is red and swollen. Hurts with movement. Provider is aware and reporting they will come eval
[2024-07-21 11:24] VITALS: BP 109/59; PULSE 106; RESP 18; TEMP 37.3; O2SAT 96
[2024-07-21 11:50] LABS: MANUAL DIFF FLAG NO
[2024-07-21 11:52] LABS: Basophils Absolute Auto 0.1 X10*3/uL (0.0-0.2); Basophils Percent Auto 0.3 % (0-2); Eosinophils Absolute Auto 0.1 X10*3/uL (0.0-0.4); Eosinophils Percent Auto 0.5 % (0-4); Hematocrit 40.4 % (37.0-47.0); Hemoglobin 12.4 g/dl (12.0-16.0); Imm Gran Abs Auto 0.12 X10*3/uL (0.00-0.03); Imm Gran Pct Auto 0.7 % (0.0-0.4); Lymphocytes Absolute Auto 1.3 X10*3/uL (1.2-4.9); Lymphocytes Percent Auto 7.6 % (20-40); Mean Corpuscular HGB Conc 30.7 g/dl (31.0-35.0); Mean Corpuscular Hemoglobin 22.9 pg (27.0-33.0); Mean Corpuscular Volume 74.7 fL (80.0-98.0); Mean Platelet Volume 9.7 fL (9.4-12.3); Monocytes Percent Auto 5.8 % (2-11); Neutrophils Percent Auto 85.1 % (45-73); Platelet Count 922 X10*3/uL (160-400); Red Blood Count 5.41 X10*6/uL (4.20-5.50); Red Cell Distribution Width 16.3 % (11.0-16.0); White Blood Count 17.6 X10*3/uL (4.8-10.8)
[2024-07-21 12:15] LABS: Alanine Aminotransferase 20 U/L (0-31); Albumin Level 3.4 g/dL (3.5-5.0); Alkaline Phosphatase 89 U/L (39-117); Anion Gap 15 (12-20); Aspartate Amino Transferase 30 U/L (5-31); Bilirubin Direct 0.2 mg/dL (0.0-0.5); Bilirubin Total 0.3 mg/dL (0.0-1.0); Blood Urea Nitrogen 30 mg/dL (9-16); C Reactive Protein 12.77 mg/dL (< or = 0.50); Calcium 9.6 mg/dL (8.4-10.2); Carbon Dioxide 28 mmol/L (22-29); Chloride 100 mmol/L (96-108); Creatinine Clr Calc Pharmacy 32.6; Estimated Glomerular Filt Rate 38; Glucose Random 220 mg/dL (60-115); Sodium 139 mmol/L (135-145); Total Protein 8.1 g/dL (6.5-8.0); Uric Acid 9.6 mg/dL (2.4-5.7)
[2024-07-21 12:29] LABS: Erythrocyte Sedimentation Rate 70 MM/HR (0-20)
[2024-07-21 12:44] LABS: Glucose, Whole Blood 219 mg/dL (60-115)
--- NOTE | 2024-07-21 13:19 | PC.NURSE ---
patient was being transferred from wheelchair to bed by instrument technician apprentice, patient legs gave out and tech was able to lower patient to the floor. this RN and tech were able to assist patient back onto their feet to pivot into bed.
[2024-07-21] MEDS: Colchicine 0.6 MG TABLET 1.2 MG PO (15:59)
[2024-07-21] MEDS: Colchicine 0.6 MG TABLET PO (18:13)
[2024-07-21 18:29] VITALS: BP 122/60; PULSE 84; RESP 18; TEMP 37.1; O2SAT 94
[2024-07-21 20:09] LABS: Glucose, Whole Blood 103 mg/dL (60-115)
[2024-07-21] MEDS: Atorvastatin Calcium 10 MG TABLET PO (20:59)
[2024-07-21] MEDS: Nystatin Powder 15 GM BOTTLE 1 APPL TOPICAL (20:59)
[2024-07-21 21:00] VITALS: BP 148/70; PULSE 102; RESP 16; TEMP 37.1; O2SAT 92
--- NOTE | 2024-07-21 23:31 | MHC.EDTECH ---
This tech took over care of pt at 2300 ,rounded and introduced self to pt, RN at bedside and assisted t/w with repositioning patient, pure-wick applied to keep pt clean and dry,call rueda in reach bed alarm on for safety
--- NOTE | 2024-07-22 03:20 | MHC.EDTECH ---
Hourly rounds completed,patient urinated 300MLS in canister,yellow/cloudy in color, pt drank a cup of glen lenore,pt is resting quietly,warm blanket given, bed alarm on for safety,call rueda in reach
[2024-07-22] MEDS: Levothyroxine Sodium 112 MCG TABLET PO (05:55)
[2024-07-22 06:00] VITALS: BP 138/74; PULSE 101; RESP 18; TEMP 36.9; O2SAT 93
--- NOTE | 2024-07-22 06:16 | MHC.EDTECH ---
Rounds and vitals completed,emptied 150MLS from canister,pt is clean and dry,call rueda in reach
[2024-07-22] MEDS: Omeprazole 20 MG CAPSULE.DR PO ×2 (06:39→16:54)
[2024-07-22 07:17] LABS: Glucose, Whole Blood 108 mg/dL (60-115)
--- NOTE | 2024-07-22 11:00 | PC.NURSE ---
Patient sleeping most of the morning, do drowsy to take morning medication, no complaints of pain,
[2024-07-22] MEDS: Colchicine 0.6 MG TABLET PO (11:34)
[2024-07-22 12:49] VITALS: BP 136/86; PULSE 101; RESP 16; TEMP 36.3; O2SAT 93
[2024-07-22 13:18] LABS: Glucose, Whole Blood 96 mg/dL (60-115)
--- NOTE | 2024-07-22 15:05 | MHC.SL.DTX ---
Dysphagia Diet modifications: Last documented Solid diet consistencies: Grnd/Mech Altered (NDD2) Last documented Liquid consistency: Thin Last documented Medication Administration:Whole with Liquid Changes made to current diet?: No: ` Liquid Consistency and Strategies: Liquid Intake Recommendation: Thin Compensatory Strategies for Safe Swallow: Small Sips Compensatory Strategies for Safe Swallow(b): Sitting Upright (90 deg) Small Bites and Sips Alternate Liquids/Solids Rate of Ingestion Change Oral Check Solid Food Consistency: Dietary Recommendations: Chopped/Advanced (NDD3) Additional Modifications to Solids: Patient requires direct supervision with cuing and assistance at meals (may not eat if left alone with tray of food). Cue prior to giving liquids, encourage steady pacing, straws ok. Oral Medication Intake: Whole with Puree Strategies and Precautions to be Taken for Safe Swallow: Sitting Upright (90 deg) Small Bites and Sips Alternate Liquids/Solids Rate of Ingestion Change Oral Check Supervision While Eating and/Drinking: Total Assistance (1:1) Foods to Avoid: Difficult to chew, stringy solids Swallowing Recommended Treatments: Compens. Strategy Educat. Level of Impact on: Daily activities: Mild Interpersonal interactions: Education: None Employment: None Community: Mild Prognosis for Improvement: Good Recommendation for Speech: Inpatient Speech Therapy Comment: Pt will need continued CAPSULE INSPECTOR assessment to reduce risk for aspiration d/t significance of cognitive decline, 1:1 feeding by skilled facility staff. Frequency/Duration: M-F Additional Comments: Patient remains confused but redirectable. Edentulous, dentures left at home. Treatment: Pt is seen with her tray of Chopped Solids and Thin Liquids. She completed ~25% of her tray. She needs intensive encouragement to finish meals. She tolerated bites of Chopped/Advanced Solids (chopped chicken in gravy) with mildly prolonged mastication and complete recollection with no overt s/s of aspiration. She tolerated Thin Liquids after solids via consecutive sips via straw. CAPSULE INSPECTOR recommends continue Chopped/Advanced Solids (NDD3) and Thin Liquids. Meds Crushed with Liquids. No further CAPSULE INSPECTOR intervention required at this time. Server Support Technician Clinican/Clinical Fellow: No Supervisory Statement: I have reviewed and agree with the student/clinical fellow's documentation: N/A Speech Language Pathologist: Efra Mack M.A., [facility]-CAPSULE INSPECTOR
[2024-07-22 18:43] LABS: Glucose, Whole Blood 137 mg/dL (60-115)
[2024-07-22 20:59] VITALS: BP 128/60; PULSE 98; RESP 16; TEMP 36.6; O2SAT 92
[2024-07-22] MEDS: OLANZapine 5 MG TABLET PO (21:19)
[2024-07-22] MEDS: Nystatin Powder 15 GM BOTTLE 1 APPL TOPICAL (21:19)
[2024-07-22] MEDS: Atorvastatin Calcium 10 MG TABLET PO (21:19)
[2024-07-22] MEDS: cefuroxime axetiL 250 MG TABLET PO (21:19)
[2024-07-22 21:51] LABS: Glucose, Whole Blood 186 mg/dL (60-115)
[2024-07-22 22:00] VITALS: BP 117/69; PULSE 93; RESP 12; TEMP 36.6; O2SAT 92
--- NOTE | 2024-07-23 02:23 | PC.NURSE ---
Patient has been sleeping most of this RN's shift, but is arousable when spoken to. Respirations even/unlabored. No acute distress noted. 1:[address] Able to take meds whole with water earlier this shift. Taking antibiotics for +UTI. Bed alarm on/active. In Overflow #1. Lights dimmed for comfort. Care ongoing by this RN.
[2024-07-23] MEDS: Levothyroxine Sodium 112 MCG TABLET PO (06:09)
[2024-07-23 06:31] VITALS: BP 111/53; PULSE 90; RESP 16; TEMP 36.3; O2SAT 94
[2024-07-23] MEDS: Omeprazole 20 MG CAPSULE.DR PO ×2 (06:36→16:58)
[2024-07-23 07:25] LABS: Glucose, Whole Blood 125 mg/dL (60-115)
[2024-07-23] MEDS: FLUoxetine HCl 20 MG CAPSULE 40 MG PO (09:52)
[2024-07-23 09:53] VITALS: BP 128/61
[2024-07-23] MEDS: OLANZapine 5 MG TABLET PO ×2 (09:53→21:59)
[2024-07-23] MEDS: amLODIPine Besylate 5 MG TABLET 10 MG PO (09:53)
[2024-07-23] MEDS: buPROPion HCl XL 300 MG TAB.ER.24H PO (09:53)
[2024-07-23] MEDS: cefuroxime axetiL 250 MG TABLET PO ×2 (09:53→21:58)
[2024-07-23] MEDS: Aspirin 81 MG TAB.CHEW PO (09:58)
[2024-07-23] MEDS: buPROPion HCl XL 150 MG TAB.ER.24H PO (09:58)
[2024-07-23] MEDS: Insulin Glargine,Hum.rec.anlog 100 UNIT/ML 10 ML VIAL 60 UNIT SUBCUT (09:59)
[2024-07-23] MEDS: Nystatin Powder 15 GM BOTTLE 1 APPL TOPICAL ×2 (09:59→21:59)
[2024-07-23] MEDS: Cholecalciferol (Vitamin D3) 25 MCG TABLET 50 MCG PO (09:59)
--- NOTE | 2024-07-23 11:00 | MHC.EDTECH ---
I performed ADL S on patient. complete bed bath saved her chin brush her hair change her bed linen and hospital gown put a new purewick empty out her suction canister out put of urine was 900ml
--- NOTE | 2024-07-23 11:21 | MHC.EDTECH ---
patient is a feed 1:1 breakfast she only had glen lenore refused to eat. At lunch time she was able to eat 50 percent of her meal
[2024-07-23 12:03] LABS: Glucose, Whole Blood 150 mg/dL (60-115)
[2024-07-23 15:04] VITALS: BP 134/61; PULSE 95; RESP 16; TEMP 36.7; O2SAT 92
[2024-07-23 18:16] LABS: Glucose, Whole Blood 142 mg/dL (60-115)
--- NOTE | 2024-07-23 19:21 | PC.NURSE ---
This RN assumed pt care @ 1900. Pt resting comfortably in bed, no signs of distress. Plan of care ongoing.
[2024-07-23] MEDS: Atorvastatin Calcium 10 MG TABLET PO (21:59)
--- NOTE | 2024-07-23 22:04 | PC.NURSE ---
Pt medicated per mar Pt positioned in bed for comfort Pt requested and given warm blanket Plan of care ongoing.
[2024-07-23 22:10] LABS: Glucose, Whole Blood 158 mg/dL (60-115)
[2024-07-24] MEDS: Levothyroxine Sodium 112 MCG TABLET PO (06:19)
[2024-07-24] MEDS: Omeprazole 20 MG CAPSULE.DR PO ×2 (06:19→17:47)
[2024-07-24 06:26] VITALS: BP 135/65; PULSE 94; RESP 18; TEMP 36.8; O2SAT 94
[2024-07-24 07:33] LABS: Glucose, Whole Blood 171 mg/dL (60-115)
[2024-07-24 09:39] VITALS: BP 138/68
[2024-07-24] MEDS: amLODIPine Besylate 5 MG TABLET 10 MG PO (09:39)
[2024-07-24] MEDS: buPROPion HCl XL 150 MG TAB.ER.24H PO (09:39)
[2024-07-24] MEDS: FLUoxetine HCl 20 MG CAPSULE 40 MG PO (09:39)
[2024-07-24] MEDS: Cholecalciferol (Vitamin D3) 25 MCG TABLET 50 MCG PO (09:39)
[2024-07-24] MEDS: cefuroxime axetiL 250 MG TABLET PO ×2 (09:40→21:08)
[2024-07-24] MEDS: Aspirin 81 MG TAB.CHEW PO (09:40)
[2024-07-24] MEDS: Insulin Glargine,Hum.rec.anlog 100 UNIT/ML 10 ML VIAL 60 UNIT SUBCUT (09:40)
[2024-07-24] MEDS: buPROPion HCl XL 300 MG TAB.ER.24H PO (09:40)
[2024-07-24] MEDS: Nystatin Powder 15 GM BOTTLE 1 APPL TOPICAL ×2 (09:40→21:09)
[2024-07-24] MEDS: OLANZapine 5 MG TABLET PO ×2 (09:43→21:09)
--- NOTE | 2024-07-24 09:47 | PC.NURSE ---
patient alert to person, knows she is in a hospital but thought she was in [facility] in [place], and thought it was 2001 but is aware she is 84 years old, pt denies pain, rr equal/non labored- lungs diminished/clear, pure wick intact/draining clear yellow urine, pt 1:1 feed and ate well for breakfast, meds were whole with water, call rueda within reach, fall precautions intact-bed alarm intact, plan of care ongoing.
[2024-07-24 11:38] LABS: Glucose, Whole Blood 216 mg/dL (60-115)
[2024-07-24 14:00] VITALS: BP 142/66; PULSE 105; RESP 16; TEMP 36.9; O2SAT 92
[2024-07-24 16:49] LABS: Glucose, Whole Blood 67 mg/dL (60-115)
--- NOTE | 2024-07-24 19:27 | MHC.EDTECH ---
Patient incontinent of urine, purewick fail. This tech changed patients bedding, cleaned patient and re-placed purewick. All current needs met.
[2024-07-24 20:30] VITALS: BP 100/52; PULSE 88; RESP 14; TEMP 36.8; O2SAT 92
[2024-07-24 20:47] LABS: Glucose, Whole Blood 177 mg/dL (60-115)
[2024-07-24] MEDS: Atorvastatin Calcium 10 MG TABLET PO (21:08)
--- NOTE | 2024-07-24 22:20 | PC.NURSE ---
Patient medicated per SEP, she is currently resting in a hospital bed, no signs of distress. Purewick in place. Call rueda in patient's reach. Plan of care ongoing.
--- NOTE | 2024-07-25 01:38 | PC.NURSE ---
Patient is sleeping in a hospital bed at this time, respirations even and unlabored, bed alarm engaged, purewick in place and patent, call rueda in patient's reach.
[2024-07-25] MEDS: Omeprazole 20 MG CAPSULE.DR PO ×2 (04:53→16:38)
[2024-07-25] MEDS: Levothyroxine Sodium 112 MCG TABLET PO (04:53)
[2024-07-25 05:12] VITALS: BP 119/60; PULSE 83; RESP 16; TEMP 36.6; O2SAT 95
--- NOTE | 2024-07-25 05:13 | MHC.EDTECH ---
PT cleaned and changed, purewick put back in place with some mesh underwears. PT medicated and given some water
[2024-07-25 07:18] LABS: Glucose, Whole Blood 81 mg/dL (60-115)
[2024-07-25] MEDS: OLANZapine 5 MG TABLET PO ×2 (08:01→20:41)
[2024-07-25] MEDS: FLUoxetine HCl 20 MG CAPSULE 40 MG PO (08:01)
[2024-07-25] MEDS: buPROPion HCl XL 150 MG TAB.ER.24H PO (08:01)
[2024-07-25] MEDS: buPROPion HCl XL 300 MG TAB.ER.24H PO (08:01)
[2024-07-25] MEDS: Cholecalciferol (Vitamin D3) 25 MCG TABLET 50 MCG PO (08:01)
[2024-07-25] MEDS: cefuroxime axetiL 250 MG TABLET PO ×2 (08:01→20:41)
[2024-07-25] MEDS: amLODIPine Besylate 5 MG TABLET 10 MG PO (08:01)
[2024-07-25] MEDS: Aspirin 81 MG TAB.CHEW PO (08:01)
[2024-07-25] MEDS: Nystatin Powder 15 GM BOTTLE 1 APPL TOPICAL ×2 (08:02→20:41)
[2024-07-25 11:34] LABS: Glucose, Whole Blood 260 mg/dL (60-115)
[2024-07-25 14:10] VITALS: BP 109/55; PULSE 92; RESP 16; TEMP 36.6; O2SAT 90
--- NOTE | 2024-07-25 15:39 | PC.NURSE ---
Assumed care of this patient at 1500, patient resting quietly on hospital stretcher at this time.
[2024-07-25 16:41] VITALS: PULSE 100; RESP 18; O2SAT 96
[2024-07-25 16:53] LABS: Glucose, Whole Blood 202 mg/dL (60-115)
--- NOTE | 2024-07-25 17:00 | MHC.EDTECH ---
patient ate 90 % of dinner and 360 cc of liquids
[2024-07-25] MEDS: Atorvastatin Calcium 10 MG TABLET PO (20:41)
--- NOTE | 2024-07-25 20:46 | PC.NURSE ---
patient checked, changed, and repositioned in bed.
[2024-07-25 21:11] VITALS: BP 114/56; PULSE 87; RESP 18; TEMP 36.8; O2SAT 94
--- NOTE | 2024-07-25 21:28 | P.HPHOSP_ITS ---
History of Present Illness Date of Service: 07/25/24 Attending physician on admission: Mark Julian Chief Complaint: nausea, diarrhea, visual hallucinations Patient is an 84-year-old female with a past medical history significant for major depressive disorder, HTN, HLD, CAD, IDDM, hypothyroid and GERD, presented to the ED on 07/10/2024 with visual hallucinations, nausea and severe diarrhea and has been monitored in ED overflow since. She reported the diarrhea had been occurring 4 days and when EMS arrived there was diarrhea all over her house. She denies any blood in the stool or any strange color or odor. She states this has been occurring at least 4 times a day and describes it as watery with abdominal cramping in the left lower quadrant. It does report recent antibiotics by her primary care provider. She also has some urinary symptoms including dysuria, frequency and urgency. Patient denies any confusion however there have been multiple reports by nursing that she is intermittently confused. Patient has been followed by case management, awaiting guardianship. On 07/21/2024 patient was also complaining of left wrist pain, ortho seen and ruled out septic joint. Patient received 3 doses of colchicine and pain, edema and erythema resolved. Review of Systems 2 Constitutional: Constitutional: Denies chills, Denies fatigue, Denies fever(s) and Denies headache(s) Eyes: Eyes: Denies change in vision ENT: Denies headache(s), Denies nasal congestion, Denies nasal discharge and Denies sore throat Cardiovascular: Cardiovascular: Denies chest pain, Denies rapid heart rate, Denies leg edema, Denies lightheadedness and Denies dyspnea Respiratory: Respiratory: Denies chest congestion, Denies cough, Denies dyspnea and Denies wheezing Gastrointestinal: Gastrointestinal: Denies melena, Denies hematochezia, Reports diarrhea, Reports nausea and Denies vomiting Genitourinary: Genitourinary: Reports dysuria and Reports urinary urgency Musculoskeletal: Musculoskeletal: Denies myalgias Integumentary/Breasts: Skin/Breast: Denies rash Neurologic: Reports confusion, Denies headache(s) and Reports Other visual disturbances Psychiatric: Psychiatric: Reports confusion and Reports visual hallucinations Endocrine: Endocrine: Denies fatigue Hematologic/Lymphatic: Hematologic/Lymphatic: Denies easy bleeding and Denies easy bruising Allergic/Immunologic: Allergic/Immunologic: Denies wheezing PMFSH Medical History (Updated 07/25/24 @ 21:56 by Isabell Ga PA-C) CAD (coronary artery disease) Insulin dependent type 2 diabetes mellitus HLD (hyperlipidemia) HTN (hypertension) Diabetes MDD (major depressive disorder), recurrent episode, moderate Social History Household Members: None Housing: Apartment Do you presently have visiting nurse or other home services: Yes Alcohol intake: former Comment: Red wrist band on. Patient Tobacco Use Status: Never used Tobacco Smoked in Last 30 Days: No e-Cigarette/Vaping Use: Never Used Use of substances other than those prescribed or required for medical reasons: No Advance Directives: Yes Advance Directives on File: Yes Advance Directives Date on File: 10/19/23 Do you have a plan to hurt others: No Plan service: No Sexual orientation: Straight/Heterosexual Narrative: no smoking, etoh or drug use Meds Allergies Allergy/AdvReac Type Severity Reaction Status Date / Time bee pollen [BEE STINGS] Allergy Unknown UNKNOWN Verified 07/10/24 09:11 morphine [MORPHINE] Allergy Unknown UNKNOWN Verified 07/10/24 09:11 Penicillins [PENICILLINS] Allergy Unknown UNKNOWN Verified 07/10/24 09:11 Active Medications: Current Medications Acetaminophen (Acetaminophen 325 Mg Tablet) 975 mg PO Q6H PRN PRN Reason: Pain, Mild 1-3,fever,headache Amlodipine Besylate (Amlodipine Besylate 5 Mg Tablet) 10 mg PO DAILY [facility]; Protocol Last Admin: 07/25/24 08:01 Dose: 10 mg Aspirin (Aspirin 81 Mg Tab.Chew) 81 mg PO DAILY [facility] Last Admin: 07/25/24 08:01 Dose: 81 mg Atorvastatin Calcium (Atorvastatin Calcium 10 Mg Tablet) 10 mg PO BEDTIME [facility] Last Admin: 07/25/24 20:41 Dose: 10 mg Bupropion HCl (Bupropion Hcl Xl 300 Mg Tab.Er.24h) 300 mg PO DAILY [facility] Last Admin: 07/25/24 08:01 Dose: 300 mg Bupropion HCl (Bupropion Hcl Xl 150 Mg Tab.Er.24h) 150 mg PO DAILY [facility] Last Admin: 07/25/24 08:01 Dose: 150 mg Enoxaparin Sodium (Enoxaparin Sodium 40 Mg/0.4 Ml Syringe) 40 mg SUBCUT Q24H [facility] Fluoxetine HCl (Fluoxetine Hcl 20 Mg Capsule) 40 mg PO DAILY [facility] Last Admin: 07/25/24 08:01 Dose: 40 mg Insulin Glargine (Insulin Glargine,Hum.Rec.Anlog 100 Unit/Ml 10 Ml Vial) 60 unit SUBCUT DAILY [facility] Last Admin: 07/25/24 08:02 Dose: Not Given Levothyroxine Sodium (Levothyroxine Sodium 112 Mcg Tablet) 112 mcg PO DAILY@0600 [facility] Last Admin: 07/25/24 04:53 Dose: 112 mcg Lidocaine (Lidocaine 4 % Patch Adh..Patch) 1 patch TRANSDERMA DAILY PRN PRN Reason: Pain Last Admin: 07/11/24 23:31 Dose: 1 patch Nystatin (Nystatin Powder 15 Gm Bottle) 1 appl TOPICAL BID [facility]; Protocol Last Admin: 07/25/24 20:41 Dose: 1 appl Olanzapine (Olanzapine Odt 10 Mg Tab.Rapdis) 10 mg TRANSLINGU BID PRN PRN Reason: Agitation Last Admin: 07/18/24 01:06 Dose: 10 mg Olanzapine (Olanzapine 5 Mg Tablet) 5 mg PO BID [facility] Last Admin: 07/25/24 20:41 Dose: 5 mg Omeprazole (Omeprazole 20 Mg Capsule.Dr) 20 mg PO BID@0630,1630 [facility] Last Admin: 07/25/24 16:38 Dose: 20 mg Prochlorperazine Edisylate (Prochlorperazine Edisylate 10 Mg/2 Ml Vial) 5 mg IVPUSH Q8H PRN PRN Reason: Nausea and Vomiting Sodium Chloride (0.9 % Sodium Chloride Flush 3 Ml Syringe) 3 ml IVFLUSH QSHIFT [facility] Vitamin D (Cholecalciferol (Vitamin D3) 25 Mcg Tablet) 50 mcg PO DAILY [facility] Last Admin: 07/25/24 08:01 Dose: 50 mcg Home Medications ?Medication ?Instructions ?Recorded ?Confirmed ?Last Taken ?Type aspirin 81 mg chewable tablet 81 mg PO DAILY 10/18/23 07/11/24 07/10/24 History bupropion HCl 200 mg tablet,12 hr 200 mg PO BID 10/18/23 07/11/24 07/10/24 History sustained-release levothyroxine 112 mcg tablet 112 mcg PO DAILY@0600 10/18/23 07/11/24 07/10/24 History acetaminophen 325 mg tablet 650 mg PO Q4H PRN Pain 07/11/24 07/11/24 07/10/24 History amlodipine 5 mg tablet 10 mg PO DAILY 07/11/24 07/20/24 07/10/24 History celecoxib 100 mg capsule 100 mg PO BID PRN Pain 07/11/24 07/11/24 07/10/24 History cholecalciferol (vitamin D3) 50 50 mcg PO DAILY 07/11/24 07/11/24 07/10/24 History mcg (2,000 unit) tablet (Vitamin D3) insulin glargine 100 unit/mL (3 60 unit subcut DAILY 07/11/24 07/11/24 07/10/24 History mL) subcutaneous pen (Lantus Solostar U-100 Insulin) lidocaine 5 % topical patch 1 patch topical DAILY PRN Pain 07/11/24 07/11/24 07/10/24 History nystatin 100,000 unit/gram topical 1 appl topical BID-TID 07/11/24 07/11/24 07/10/24 History powder (Nystop) olanzapine 5 mg tablet 5 mg PO DAILY 07/11/24 07/11/24 07/10/24 History omeprazole 20 mg capsule,delayed 20 mg PO BID 07/20/24 07/20/24 Unknown History release Physical Exam 2 Vital Signs and Narrative: Vital Signs: Last Vital Signs Temp 98.3 F 07/25/24 21:11 Pulse 87 07/25/24 21:11 Resp 18 07/25/24 21:11 BP 114/56 L 07/25/24 21:11 Pulse Ox 94 07/25/24 21:11 O2 Del Method Room Air 07/25/24 21:11 O2 Flow Rate 2 07/16/24 06:03 BMI result Body Mass Index 24.1 General: AOx3, no acute distress Resp: CTA bilaterally CVS: S1, S2, RRR GI: +BS, mild tenderness LLQ, no distention Skin: Warm, dry Neuro: Cranial nerves II-XII grossly intact bilaterally. Motor grossly intact bilaterally Extremities: No LE edema Psych: Appropriate affect Const: General: confusion Orientation/consciousness: confusion Neuro: General: confusion Results Labs 07/21/24 11:45 07/21/24 11:45 Labs: Laboratory Results - last 24 hr 07/25/24 07/25/24 07/25/24 07:14 11:30 16:34 POC Glucose 81 260 H 202 H Assessment and Plan (1) AMS (altered mental status): Status: Acute (2) UTI (urinary tract infection): Status: Acute (3) Diarrhea: Status: Acute (4) Gout: Status: Acute Plan Patient is an 84-year-old female with a past medical history significant for major depressive disorder, HTN, HLD, CAD, IDDM, hypothyroid and GERD, presented to the ED on 07/10/2024 with visual hallucinations, nausea and severe diarrhea and has been monitored in ED overflow since. Followed by the ED providers and case management, pending guardianship. Urine on 07/19 showed acute UTI, treated with Ceftin 250 mg p.o. b.i.d. x7 days, culture was positive for aerococcus urinae and coag-negative Staphylococcus. Per nursing staff the patient has not had diarrhea and days, stool testing was never performed. The patient continues to have intermittent confusion. Altered mental status - WBC 15.8 on 07/10/24, mild increase to 17.6 07/20 and 07/21/24, vital signs stable, no sepsis - UA initially positive for UTI, treated with ceftin x7 days - head CT negative - followed by case management, awaiting guardianship and José Manuel's orders - repeat urine to assure UTI treated given persistent symptoms UTI - treated with ceften BID x7 days as above - repeat UA/cx to assure treatment successful as pt is still symptomatic diarrhea - diarrhea resolved for days per nursing staff, pt reported otherwise - stool test orders in for GI panel and c diff if diarrhea returns gout L wrist, resolved - recent episode of gout on 07/21/2024, treated with colchicine x3 doses HTN - continue amlodipine HLD/CAD - continue atorvastatin and ASA 81 IDDM - diabetic diet - continue Lantus 60 units daily - blood sugars stable, add sliding scale as needed Hypothyroid - continue levothyroxine GERD - continue omeprazole Presumed full code given patient's altered mental status VTE prophylaxis: Lovenox Patient with altered mental status awaiting guardianship and Benson order, has been monitored in ED overflow for 2 weeks, at this time admission required due to prolonged stay and altered mental status. Quality Stroke Does the patient have a stroke diagnosis?: No VTE Prior VTE?: No VTE Risk Level:: Medical - moderate - high VTE Device Contraindication: Treatment Not Indicated VTE Drug Contraindication: N/A - Med Ordered
[2024-07-25 21:40] LABS: Glucose, Whole Blood 135 mg/dL (60-115)
[2024-07-25 22:24] LABS: MANUAL DIFF FLAG NO
[2024-07-25 22:25] LABS: Basophils Absolute Auto 0.1 X10*3/uL (0.0-0.2); Basophils Percent Auto 0.5 % (0-2); Eosinophils Absolute Auto 0.6 X10*3/uL (0.0-0.4); Eosinophils Percent Auto 4.5 % (0-4); Hematocrit 34.2 % (37.0-47.0); Hemoglobin 10.5 g/dl (12.0-16.0); Imm Gran Abs Auto 0.09 X10*3/uL (0.00-0.03); Imm Gran Pct Auto 0.7 % (0.0-0.4); Lymphocytes Absolute Auto 2.3 X10*3/uL (1.2-4.9); Lymphocytes Percent Auto 17.8 % (20-40); Mean Corpuscular HGB Conc 30.7 g/dl (31.0-35.0); Mean Corpuscular Hemoglobin 22.8 pg (27.0-33.0); Mean Corpuscular Volume 74.3 fL (80.0-98.0); Mean Platelet Volume 9.6 fL (9.4-12.3); Monocytes Absolute Auto 0.7 X10*3/uL (0.1-1.2); Monocytes Percent Auto 5.6 % (2-11); Neutrophils Absolute Auto 9.1 x10*3/uL (2.0-8.3); Neutrophils Percent Auto 70.9 % (45-73); Platelet Count 885 X10*3/uL (160-400); Red Cell Distribution Width 16.3 % (11.0-16.0); White Blood Count 12.8 X10*3/uL (4.8-10.8)
[2024-07-25 22:46] LABS: Alanine Aminotransferase 21 U/L (0-31); Albumin Level 2.9 g/dL (3.5-5.0); Alkaline Phosphatase 78 U/L (39-117); Anion Gap 10 (12-20); Aspartate Amino Transferase 29 U/L (5-31); Bilirubin Total 0.1 mg/dL (0.0-1.0); Blood Urea Nitrogen 54 mg/dL (9-16); Calcium 9.1 mg/dL (8.4-10.2); Carbon Dioxide 28 mmol/L (22-29); Chloride 104 mmol/L (96-108); Creatinine Clr Calc Pharmacy 27.1; Estimated Glomerular Filt Rate 31; Glucose Random 123 mg/dL (60-115); Lipase 55 U/L (8-78); Magnesium 1.9 mg/dL (1.6-2.6); Potassium 4.9 mmol/L (3.3-5.1); Sodium 137 mmol/L (135-145); Total Protein 6.7 g/dL (6.5-8.0)
--- NOTE | 2024-07-26 02:27 | PC.NURSE ---
Patient exit alarm on bed alarming as patient was found naked and confused trying to get up independently. Patient was convinced it was time to go shopping. Patient was re-oriented and helped back into bed. Alarm turned back on for patient safety
[2024-07-26] MEDS: Omeprazole 20 MG CAPSULE.DR PO ×2 (05:12→17:09)
[2024-07-26] MEDS: Levothyroxine Sodium 112 MCG TABLET PO (05:12)
[2024-07-26 05:59] LABS: MANUAL DIFF FLAG NO
[2024-07-26 06:13] VITALS: BP 123/69; PULSE 83; RESP 16; TEMP 37.1; O2SAT 95
[2024-07-26 06:22] LABS: Basophils Absolute Auto 0.1 X10*3/uL (0.0-0.2); Basophils Percent Auto 0.7 % (0-2); Eosinophils Absolute Auto 0.6 X10*3/uL (0.0-0.4); Eosinophils Percent Auto 4.4 % (0-4); Hematocrit 37.5 % (37.0-47.0); Hemoglobin 11.4 g/dl (12.0-16.0); Imm Gran Abs Auto 0.08 X10*3/uL (0.00-0.03); Imm Gran Pct Auto 0.6 % (0.0-0.4); Lymphocytes Absolute Auto 2.7 X10*3/uL (1.2-4.9); Mean Corpuscular HGB Conc 30.4 g/dl (31.0-35.0); Mean Corpuscular Hemoglobin 22.7 pg (27.0-33.0); Mean Corpuscular Volume 74.6 fL (80.0-98.0); Mean Platelet Volume 9.7 fL (9.4-12.3); Monocytes Absolute Auto 0.7 X10*3/uL (0.1-1.2); Monocytes Percent Auto 5.1 % (2-11); Neutrophils Absolute Auto 9.5 x10*3/uL (2.0-8.3); Neutrophils Percent Auto 69.2 % (45-73); Platelet Count 944 X10*3/uL (160-400); Red Blood Count 5.03 X10*6/uL (4.20-5.50); Red Cell Distribution Width 16.2 % (11.0-16.0); White Blood Count 13.7 X10*3/uL (4.8-10.8)
[2024-07-26 06:24] LABS: Anion Gap 13 (12-20); Blood Urea Nitrogen 49 mg/dL (9-16); Calcium 9.7 mg/dL (8.4-10.2); Carbon Dioxide 26 mmol/L (22-29); Chloride 105 mmol/L (96-108); Creatinine Clr Calc Pharmacy 32.1; Estimated Glomerular Filt Rate 37; Glucose Random 104 mg/dL (60-115); Magnesium 1.9 mg/dL (1.6-2.6); Potassium 4.9 mmol/L (3.3-5.1); Sodium 139 mmol/L (135-145)
[2024-07-26 07:47] LABS: Glucose, Whole Blood 94 mg/dL (60-115)
--- NOTE | 2024-07-26 07:47 | PC.NURSE ---
Assumed care of pt at 0700. Pt resting quietly in bed, a/ox3, respirations even and unlabored, no signs of increased wob/sob. Pt incontinent of urine, all new bed linens placed, new purewick applied. Pt repositioned onto back, resting quietly at this time. Call rueda within reach, all needs met at this time.
[2024-07-26] MEDS: Enoxaparin Sodium 40 MG/0.4 ML SYRINGE SUBCUT (08:38)
[2024-07-26] MEDS: FLUoxetine HCl 20 MG CAPSULE 40 MG PO (08:38)
[2024-07-26] MEDS: buPROPion HCl XL 300 MG TAB.ER.24H PO (08:38)
[2024-07-26] MEDS: Cholecalciferol (Vitamin D3) 25 MCG TABLET 50 MCG PO (08:39)
[2024-07-26 08:40] VITALS: BP 145/67
[2024-07-26] MEDS: Aspirin 81 MG TAB.CHEW PO (08:40)
[2024-07-26] MEDS: OLANZapine 5 MG TABLET PO (08:40)
[2024-07-26] MEDS: amLODIPine Besylate 5 MG TABLET 10 MG PO (08:40)
[2024-07-26 08:43] VITALS: BP 145/67; PULSE 98; RESP 20; TEMP 36.6; O2SAT 93
[2024-07-26] MEDS: buPROPion HCl XL 150 MG TAB.ER.24H PO (08:46)
[2024-07-26] MEDS: Nystatin Powder 15 GM BOTTLE 1 APPL TOPICAL (08:50)
--- NOTE | 2024-07-26 09:50 | MHC.EDTECH ---
Assisted patient with personal hygiene, helped on/off commode. Changed patients gown a linen.
[2024-07-26 11:29] LABS: Glucose, Whole Blood 194 mg/dL (60-115)
[2024-07-26 11:58] LABS: Glucose, Whole Blood 186 mg/dL (60-115)
--- NOTE | 2024-07-26 12:01 | P.CNPS_ITS ---
History of Present Illness Date of Service: 07/26/2023 Chief Complaint: failure to thrive, nausea and vomiting Requesting physician: Roberto Pruitt Discussed with referring provider: Yes Sources of Information: patient interviewed, chart reviewed and crisis/core team assessment reviewed HPI Narrative: Interim Hx: Viar seen in the ED. She is in bed in no acute distress. 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 She is confused as to what type of setting is this one, not even able to identify that this is a hospital as she did when she first came here. She states she thinks she is here because of her grandfather and grandmother. Not able to tell the month or the year. Past Psychiatric History: Inpatient: none OP: none Past trials: wellbutrin, prozac Medical Evaluation Reviewed: Yes [facility] Medical History (Updated 07/25/24 @ 21:56 by Isabell Ga PA-C) CAD (coronary artery disease) Insulin dependent type 2 diabetes mellitus HLD (hyperlipidemia) HTN (hypertension) Diabetes MDD (major depressive disorder), recurrent episode, moderate Social History: Vira is 1 of 3 siblings. Her 2 siblings are . She lives alone after moving here from [place] to be near her grandchild. She was in [place] and moved here 3 or 4 years ago. She was once and for many years. She has worked in the past but is on social security now, receiving over 2000 dollars a month. She denies any previous psychiatric treatment Trauma History: None Diagnostics Vital Signs (24Hr): Vital Signs - 24 hr 07/25/24 14:10 07/25/24 16:41 07/25/24 21:11 Temperature 97.8 F 98.3 F Pulse Rate 92 100 87 Respiratory Rate 16 18 18 Blood Pressure 109/55 L 114/56 L Pulse Oximetry 90 L 96 94 Oxygen Delivery Method Room Air Room Air Room Air 07/26/24 06:13 07/26/24 08:40 07/26/24 08:43 Temperature 98.7 F 97.9 F Pulse Rate 83 98 Respiratory Rate 16 20 Blood Pressure 123/69 145/67 H 145/67 H Pulse Oximetry 95 93 Oxygen Delivery Method Room Air Room Air BMI result Body Mass Index 24.1 Labs 07/26/24 04:57 07/26/24 04:57 Labs: Laboratory Results - last 48 hr 07/24/24 07/24/24 07/25/24 16:44 20:44 07:14 WBC RBC Hgb Hct MCV MCH MCHC RDW Plt Count MPV Immature Gran % (Auto) Neut % (Auto) Lymph % (Auto) [place] % (Auto) Eos % (Auto) Baso % (Auto) Lymph # (Auto) [place] # (Auto) Eos # (Auto) Baso # (Auto) Abs Immat Gran (auto) Absolute Neuts (auto) Absolute Nucleated RBC Nucleated RBC % (auto) Sodium Potassium Chloride Carbon Dioxide Anion Gap BUN Creatinine Estim Creat Clear Calc Estimated GFR POC Glucose 67 177 H 81 Random Glucose Calcium Magnesium Total Bilirubin AST ALT Alkaline Phosphatase Total Protein Albumin Lipase 07/25/24 07/25/24 07/25/24 11:30 16:34 21:36 WBC RBC Hgb Hct MCV MCH MCHC RDW Plt Count MPV Immature Gran % (Auto) Neut % (Auto) Lymph % (Auto) [place] % (Auto) Eos % (Auto) Baso % (Auto) Lymph # (Auto) [place] # (Auto) Eos # (Auto) Baso # (Auto) Abs Immat Gran (auto) Absolute Neuts (auto) Absolute Nucleated RBC Nucleated RBC % (auto) Sodium Potassium Chloride Carbon Dioxide Anion Gap BUN Creatinine Estim Creat Clear Calc Estimated GFR POC Glucose 260 H 202 H 135 H Random Glucose Calcium Magnesium Total Bilirubin AST ALT Alkaline Phosphatase Total Protein Albumin Lipase 07/25/24 07/26/24 07/26/24 21:57 04:57 07:31 WBC 12.8 H 13.7 H RBC 4.60 5.03 Hgb 10.5 L 11.4 L Hct 34.2 L 37.5 MCV 74.3 L 74.6 L MCH 22.8 L 22.7 L MCHC 30.7 L 30.4 L RDW 16.3 H 16.2 H Plt Count 885 H 944 H MPV 9.6 9.7 Immature Gran % (Auto) 0.7 H 0.6 H Neut % (Auto) 70.9 69.2 Lymph % (Auto) 17.8 L 20.0 [place] % (Auto) 5.6 5.1 Eos % (Auto) 4.5 H 4.4 H Baso % (Auto) 0.5 0.7 Lymph # (Auto) 2.3 2.7 [place] # (Auto) 0.7 0.7 Eos # (Auto) 0.6 H 0.6 H Baso # (Auto) 0.1 0.1 Abs Immat Gran (auto) 0.09 H 0.08 H Absolute Neuts (auto) 9.1 H 9.5 H Absolute Nucleated RBC 0.000 0.000 Nucleated RBC % (auto) 0.0 0.0 Sodium 137 139 Potassium 4.9 D 4.9 Chloride 104 105 Carbon Dioxide 28 26 Anion Gap 10 L 13 BUN 54 H 49 H Creatinine 1.61 H 1.36 Estim Creat Clear Calc 27.1 32.1 Estimated GFR 31 37 POC Glucose 94 Random Glucose 123 H 104 Calcium 9.1 9.7 D Magnesium 1.9 1.9 Total Bilirubin 0.1 AST 29 ALT 21 Alkaline Phosphatase 78 Total Protein 6.7 Albumin 2.9 L Lipase 55 07/26/24 07/26/24 11:25 11:49 WBC RBC Hgb Hct MCV MCH MCHC RDW Plt Count MPV Immature Gran % (Auto) Neut % (Auto) Lymph % (Auto) [place] % (Auto) Eos % (Auto) Baso % (Auto) Lymph # (Auto) [place] # (Auto) Eos # (Auto) Baso # (Auto) Abs Immat Gran (auto) Absolute Neuts (auto) Absolute Nucleated RBC Nucleated RBC % (auto) Sodium Potassium Chloride Carbon Dioxide Anion Gap BUN Creatinine Estim Creat Clear Calc Estimated GFR POC Glucose 194 H 186 H Random Glucose Calcium Magnesium Total Bilirubin AST ALT Alkaline Phosphatase Total Protein Albumin Lipase Imaging Radiology Impressions: ITS Impressions Head CT 07/11/24 20:09 IMPRESSION: 1. No acute intracranial abnormality. 2. Chronic small vessel ischemic disease and age-related cerebral volume loss. 3. Right temporal convexity meningioma, unchanged. Electronically signed by: Richard Torres DO 07/11/2024 09:11 PM EST RP Wrist X-Ray 07/21/24 11:18 IMPRESSION: No visible acute fracture, dislocation or subluxation seen. Mild degenerative changes first carpometacarpal joint. Electronically signed by: Ramu Shankar MD 07/21/2024 01:00 PM EST RP Mental Status Exam Mental Status Exam Narrative: Appearance: MO, wearing hospital gown, slightly disheveled, in NAD Behavior: cooperative Psychomotor: no agitation or retardation noted Speech: clear, normal rate/rhythm, hyperverbal but not pressured, spontaneous TP: loose associations TC:disorganized Mood: okay Affect: congruent SI: denies HI: denies VH/AH: none delusions: none Insight/judgment: impaired x 2. Memory/cog: alert, not oriented to place, month, year nor situation. Appears much more confused than when she first came to the hospital. Medications Medications Current Medications Acetaminophen (Acetaminophen 325 Mg Tablet) 975 mg PO Q6H PRN PRN Reason: Pain, Mild 1-3,fever,headache Amlodipine Besylate (Amlodipine Besylate 5 Mg Tablet) 10 mg PO DAILY [facility]; Protocol Last Admin: 07/26/24 08:40 Dose: 10 mg Aspirin (Aspirin 81 Mg Tab.Chew) 81 mg PO DAILY [facility] Last Admin: 07/26/24 08:40 Dose: 81 mg Atorvastatin Calcium (Atorvastatin Calcium 10 Mg Tablet) 10 mg PO BEDTIME [facility] Last Admin: 07/25/24 20:41 Dose: 10 mg Bupropion HCl (Bupropion Hcl Xl 300 Mg Tab.Er.24h) 300 mg PO DAILY [facility] Last Admin: 07/26/24 08:38 Dose: 300 mg Bupropion HCl (Bupropion Hcl Xl 150 Mg Tab.Er.24h) 150 mg PO DAILY [facility] Last Admin: 07/26/24 08:46 Dose: 150 mg Enoxaparin Sodium (Enoxaparin Sodium 40 Mg/0.4 Ml Syringe) 40 mg SUBCUT Q24H [facility] Last Admin: 07/26/24 08:38 Dose: 40 mg Fluoxetine HCl (Fluoxetine Hcl 20 Mg Capsule) 40 mg PO DAILY [facility] Last Admin: 07/26/24 08:38 Dose: 40 mg Glucose (Glucose Gel 15 Gm Gel..Gram.) 15 gm PO Q15M PRN; Protocol PRN Reason: per Hypoglycemia Standing Ord. Dextrose (D10) 250 mls @ 750 mls/hr IV Q15M PRN; Protocol PRN Reason: per Hypoglycemia Standing Ord. Insulin Glargine (Insulin Glargine,Hum.Rec.Anlog 100 Unit/Ml 10 Ml Vial) 60 unit SUBCUT DAILY [facility] Last Admin: 07/26/24 08:47 Dose: Not Given Insulin Human Lispro (Insulin Lispro 100 Unit/Ml 3 Ml Vial) 0 unit SUBCUT QIDACHS [facility]; Protocol Last Admin: 07/26/24 07:59 Dose: Not Given Levothyroxine Sodium (Levothyroxine Sodium 112 Mcg Tablet) 112 mcg PO DAILY@0600 [facility] Last Admin: 07/26/24 05:12 Dose: 112 mcg Lidocaine (Lidocaine 4 % Patch Adh..Patch) 1 patch TRANSDERMA DAILY PRN PRN Reason: Pain Last Admin: 07/11/24 23:31 Dose: 1 patch Nystatin (Nystatin Powder 15 Gm Bottle) 1 appl TOPICAL BID [facility]; Protocol Last Admin: 07/26/24 08:50 Dose: 1 appl Olanzapine (Olanzapine Odt 10 Mg Tab.Rapdis) 10 mg TRANSLINGU BID PRN PRN Reason: Agitation Last Admin: 07/18/24 01:06 Dose: 10 mg Olanzapine (Olanzapine 5 Mg Tablet) 5 mg PO BID [facility] Last Admin: 07/26/24 08:40 Dose: 5 mg Omeprazole (Omeprazole 20 Mg Capsule.Dr) 20 mg PO BID@0630,1630 [facility] Last Admin: 07/26/24 05:12 Dose: 20 mg Prochlorperazine Edisylate (Prochlorperazine Edisylate 10 Mg/2 Ml Vial) 5 mg IVPUSH Q8H PRN PRN Reason: Nausea and Vomiting Sodium Chloride (0.9 % Sodium Chloride Flush 3 Ml Syringe) 3 ml IVFLUSH QSHIFT [facility] Last Admin: 07/26/24 08:22 Dose: Not Given Vitamin D (Cholecalciferol (Vitamin D3) 25 Mcg Tablet) 50 mcg PO DAILY [facility] Last Admin: 07/26/24 08:39 Dose: 50 mcg Allergies Allergies Allergy/AdvReac Type Severity Reaction Status Date / Time bee pollen [BEE STINGS] Allergy Unknown UNKNOWN Verified 07/10/24 09:11 morphine [MORPHINE] Allergy Unknown UNKNOWN Verified 07/10/24 09:11 Penicillins [PENICILLINS] Allergy Unknown UNKNOWN Verified 07/10/24 09:11 Assessment & Plan Assessment & Plan (1) Major neurocognitive disorder: Status: Acute Code(s): F03.90 - Unspecified dementia, unspecified severity, without behavioral disturbance, psychotic disturbance, mood disturbance, and anxiety Plan Mrs. Jules is a 84 year-old woman with hx of dementia, progressing affecting her ability to care for herself. She is presenting as more confused, not oriented to place, month, year nor situation. Her speech also more disorganized. No overt psychosis or delusions, but would suggest checking for UTI, as she appears more confused than some weeks ago. NOted chronic leukocytosis and thrombocytosis. Will dc olanzapine for now but continue to assess need for antipsychotic if any. PLAN 1. dc olanzapine. 2. check UA- given more confused presentation Total time managing care of this patient today ____ minutes.
[2024-07-26] MEDS: Insulin Lispro 100 UNIT/ML 3 ML VIAL SUBCUT ×2 (12:09→23:16)
--- NOTE | 2024-07-26 12:26 | PC.NURSE ---
Pt up oob to commode with tech 1 assisted, able to stand and pivot with steady gait. Placed back in bed and repositioned, resting quietly, no signs of distress. Call rueda within reach, all needs met at this time.
[2024-07-26 14:38] VITALS: BP 110/53; PULSE 88; RESP 16; TEMP 37.1; O2SAT 93
[2024-07-26 17:15] LABS: Glucose, Whole Blood 150 mg/dL (60-115)
--- NOTE | 2024-07-26 17:47 | HO.PM.IMPN ---
Subjective Subjective Date of Service: 07/26/24 Interval History: confusion Review of Systems menatal status seems to be improving knows her name and day time passed bm as per staff no fever Physical Exam Vital Signs: Vital Signs: Last Vital Signs Temp 98.7 F 07/26/24 14:38 Pulse 88 07/26/24 14:38 Resp 16 07/26/24 14:38 BP 110/53 L 07/26/24 14:38 Pulse Ox 93 07/26/24 14:38 O2 Del Method Room Air 07/26/24 14:38 O2 Flow Rate 2 07/16/24 06:03 BMI result Body Mass Index 24.1 Appearance: Awake ,plesantly confused. cvs: rrr, [id number] . res: clear to auscultation ,no rhonchii or wheezing abd: no rebound or guarding ,nt, bs present. ext pulses present , no cyanosis . neuro:nonfocal. Objective Data Active Medications Acetaminophen (Acetaminophen 325 Mg Tablet) 975 mg PO Q6H PRN PRN Reason: Pain, Mild 1-3,fever,headache Amlodipine Besylate (Amlodipine Besylate 5 Mg Tablet) 10 mg PO DAILY [facility]; Protocol Last Admin: 07/26/24 08:40 Dose: 10 mg Documented By: NICOLAS Aspirin (Aspirin 81 Mg Tab.Chew) 81 mg PO DAILY [facility] Last Admin: 07/26/24 08:40 Dose: 81 mg Documented By: NICOLAS Atorvastatin Calcium (Atorvastatin Calcium 10 Mg Tablet) 10 mg PO BEDTIME [facility] Last Admin: 07/25/24 20:41 Dose: 10 mg Documented By: TONY Enoxaparin Sodium (Enoxaparin Sodium 40 Mg/0.4 Ml Syringe) 40 mg SUBCUT Q24H [facility] Last Admin: 07/26/24 08:38 Dose: 40 mg Documented By: NICOLAS Fluoxetine HCl (Fluoxetine Hcl 20 Mg Capsule) 40 mg PO DAILY [facility] Last Admin: 07/26/24 08:38 Dose: 40 mg Documented By: NICOLAS Glucose (Glucose Gel 15 Gm Gel..Gram.) 15 gm PO Q15M PRN; Protocol PRN Reason: per Hypoglycemia Standing Ord. Dextrose (D10) 250 mls @ 750 mls/hr IV Q15M PRN; Protocol PRN Reason: per Hypoglycemia Standing Ord. Insulin Glargine (Insulin Glargine,Hum.Rec.Anlog 100 Unit/Ml 10 Ml Vial) 60 unit SUBCUT DAILY [facility] Last Admin: 07/26/24 08:47 Dose: Not Given Documented By: NICOLAS Non-Admin Reason: No Insulin Coverage Insulin Human Lispro (Insulin Lispro 100 Unit/Ml 3 Ml Vial) 0 unit SUBCUT QIDACHS [facility]; Protocol Last Admin: 07/26/24 17:04 Dose: Not Given Documented By: NICOLAS Non-Admin Reason: No Insulin Coverage Levothyroxine Sodium (Levothyroxine Sodium 112 Mcg Tablet) 112 mcg PO DAILY@0600 [facility] Last Admin: 07/26/24 05:12 Dose: 112 mcg Documented By: TONY Lidocaine (Lidocaine 4 % Patch Adh..Patch) 1 patch TRANSDERMA DAILY PRN PRN Reason: Pain Last Admin: 07/11/24 23:31 Dose: 1 patch Documented By: JOSSUE Nystatin (Nystatin Powder 15 Gm Bottle) 1 appl TOPICAL BID [facility]; Protocol Last Admin: 07/26/24 08:50 Dose: 1 appl Documented By: NICOLAS Omeprazole (Omeprazole 20 Mg Capsule.Dr) 20 mg PO BID@0630,1630 [facility] Last Admin: 07/26/24 17:09 Dose: 20 mg Documented By: NICOLAS Prochlorperazine Edisylate (Prochlorperazine Edisylate 10 Mg/2 Ml Vial) 5 mg IVPUSH Q8H PRN PRN Reason: Nausea and Vomiting Sodium Chloride (0.9 % Sodium Chloride Flush 3 Ml Syringe) 3 ml IVFLUSH QSHIFT [facility] Last Admin: 07/26/24 16:54 Dose: Not Given Documented By: NICOLAS Non-Admin Reason: No Access Vitamin D (Cholecalciferol (Vitamin D3) 25 Mcg Tablet) 50 mcg PO DAILY [facility] Last Admin: 07/26/24 08:39 Dose: 50 mcg Documented By: NICOLAS Labs 07/26/24 04:57 07/26/24 04:57 Labs: Laboratory Results - last 24 hr 07/25/24 07/25/24 07/26/24 21:36 21:57 04:57 MCV 74.3 L 74.6 L MCH 22.8 L 22.7 L MCHC 30.7 L 30.4 L RDW 16.3 H 16.2 H Plt Count 885 H 944 H MPV 9.6 9.7 Immature Gran % (Auto) 0.7 H 0.6 H Neut % (Auto) 70.9 69.2 Lymph % (Auto) 17.8 L 20.0 Weston % (Auto) 5.6 5.1 Eos % (Auto) 4.5 H 4.4 H Baso % (Auto) 0.5 0.7 Lymph # (Auto) 2.3 2.7 Weston # (Auto) 0.7 0.7 Eos # (Auto) 0.6 H 0.6 H Baso # (Auto) 0.1 0.1 Abs Immat Gran (auto) 0.09 H 0.08 H Absolute Neuts (auto) 9.1 H 9.5 H Absolute Nucleated RBC 0.000 0.000 Nucleated RBC % (auto) 0.0 0.0 Anion Gap 10 L 13 Estim Creat Clear Calc 27.1 32.1 Estimated GFR 31 37 POC Glucose 135 H Random Glucose 123 H 104 Calcium 9.1 9.7 D Magnesium 1.9 1.9 Total Bilirubin 0.1 AST 29 ALT 21 Alkaline Phosphatase 78 Total Protein 6.7 Albumin 2.9 L Lipase 55 07/26/24 07/26/24 07/26/24 07:31 11:25 11:49 MCV MCH MCHC RDW Plt Count MPV Immature Gran % (Auto) Neut % (Auto) Lymph % (Auto) Weston % (Auto) Eos % (Auto) Baso % (Auto) Lymph # (Auto) Weston # (Auto) Eos # (Auto) Baso # (Auto) Abs Immat Gran (auto) Absolute Neuts (auto) Absolute Nucleated RBC Nucleated RBC % (auto) Anion Gap Estim Creat Clear Calc Estimated GFR POC Glucose 94 194 H 186 H Random Glucose Calcium Magnesium Total Bilirubin AST ALT Alkaline Phosphatase Total Protein Albumin Lipase 07/26/24 16:55 MCV MCH MCHC RDW Plt Count MPV Immature Gran % (Auto) Neut % (Auto) Lymph % (Auto) Weston % (Auto) Eos % (Auto) Baso % (Auto) Lymph # (Auto) Weston # (Auto) Eos # (Auto) Baso # (Auto) Abs Immat Gran (auto) Absolute Neuts (auto) Absolute Nucleated RBC Nucleated RBC % (auto) Anion Gap Estim Creat Clear Calc Estimated GFR POC Glucose 150 H Random Glucose Calcium Magnesium Total Bilirubin AST ALT Alkaline Phosphatase Total Protein Albumin Lipase Assessment and Plan (1) Diarrhea: Status: Acute (2) UTI (urinary tract infection): Status: Acute (3) AMS (altered mental status): Status: Acute Assessment and Plan: 84-year-old female with a past medical history significant for major depressive disorder, HTN, HLD, CAD, IDDM, hypothyroid and GERD, presented to the ED on 07/10/2024 with visual hallucinations, nausea and severe diarrhea and has been monitored in ED overflow since. Followed by the ED providers and case management, pending guardianship. Urine on 07/19 showed acute UTI, treated with Ceftin 250 mg p.o. b.i.d. x7 days, culture was positive for aerococcus urinae and coag-negative Staphylococcus. Per nursing staff the patient has not had diarrhea and days, stool testing was never performed. The patient continues to have intermittent confusion. Altered mental status leucocytosis seems improving, vital signs stable, no sepsis - UA initially positive for UTI, treated with ceftin x7 days - head CT negative - followed by case management, awaiting guardianship psych -stopped clozapine - repeat urine to assure UTI treated given persistent symptoms UTI - treated with ceften BID x7 days as above - repeat UA/cx to assure treatment successful as pt is still symptomatic diarrhea - diarrhea resolved for days per nursing staff, pt reported otherwise - stool test orders in for GI panel and c diff if diarrhea returns gout L wrist, resolved - recent episode of gout on 07/21/2024, treated with colchicine x3 doses HTN - continue amlodipine HLD/CAD - continue atorvastatin and ASA 81 IDDM - diabetic diet - continue Lantus 60 units daily - blood sugars stable, add sliding scale as needed Hypothyroid - continue levothyroxine GERD - continue omeprazole Presumed full code given patient's altered mental status. VTE prophylaxis: Lovenox Patient with altered mental status awaiting guardianship and [place] order, has been monitored in ED overflow for 2 weeks, at this time admission required due to prolonged stay and altered mental status. Quality Stroke Does the patient have a stroke diagnosis?: No VTE Prior VTE?: No VTE Risk Level:: Medical - moderate - high VTE Device Contraindication: Treatment Not Indicated VTE Drug Contraindication: N/A - Med Ordered
[2024-07-26 18:04] VITALS: BP 135/74; PULSE 92; RESP 18; TEMP 36.8; O2SAT 92
--- NOTE | 2024-07-26 19:05 | PC.NURSE ---
Received RN to RN report from Kaitlyn Hunt RN. Report already given to floor RN, awaiting transport to Med/Surg floor. Patient is sitting upright in chair at this time. No needs at this time, watching TV.
--- NOTE | 2024-07-26 20:15 | PC.NURSE ---
Patient being transferred from Overflow 1 to Med/Surg. Transported by Lorne Rodriguez.
[2024-07-26 20:28] VITALS: BP 134/63; PULSE 86; RESP 16; TEMP 35.7; O2SAT 92
[2024-07-26 20:40] VITALS: BMI 24.2
[2024-07-26 20:51] LABS: Glucose, Whole Blood 172 mg/dL (60-115)
[2024-07-26] MEDS: Atorvastatin Calcium 10 MG TABLET PO (23:16)
[2024-07-27] VITALS (7 sets, daily range): BP systolic 121–148; BP diastolic 60–74; PULSE 87–105; RESP 16–18; TEMP 36.1–37.1; O2SAT 92–95
[2024-07-27] MEDS: Omeprazole 20 MG CAPSULE.DR PO ×2 (05:25→17:09)
[2024-07-27] MEDS: Levothyroxine Sodium 112 MCG TABLET PO (05:25)
[2024-07-27 07:40] LABS: Glucose, Whole Blood 87 mg/dL (60-115)
[2024-07-27] MEDS: FLUoxetine HCl 20 MG CAPSULE 40 MG PO (09:55)
[2024-07-27] MEDS: Cholecalciferol (Vitamin D3) 25 MCG TABLET 50 MCG PO (09:55)
[2024-07-27] MEDS: amLODIPine Besylate 5 MG TABLET 10 MG PO (09:55)
[2024-07-27] MEDS: Aspirin 81 MG TAB.CHEW PO (09:55)
[2024-07-27] MEDS: Enoxaparin Sodium 40 MG/0.4 ML SYRINGE SUBCUT (09:55)
[2024-07-27] MEDS: Insulin Glargine,Hum.rec.anlog 100 UNIT/ML 10 ML VIAL 60 UNIT SUBCUT (09:55)
--- NOTE | 2024-07-27 10:26 | MHC.CLN ---
NUTRITION ROUTINE NUTRITION CONSULT. DIET=DIABETIC 2000 KCALS, CHOPPED. PATIENT HAS BEEN MONITORED IN ED OVERFLOW SINCE 07/10/24. REVIEW OF WEIGHT HX SHOWS WEIGHT OVERALL STABLE X 1.5 YEARS. REDNESS TO BUTTOCKS. INTAKE APPEARS VARIABLE. NO ADDITIONAL NUTRITION INTERVENTIONS AT THIS TIME. RD TO MONITOR WEEKLY.
[2024-07-27 11:30] LABS: Glucose, Whole Blood 147 mg/dL (60-115)
--- NOTE | 2024-07-27 11:44 | MHC.CM.PN ---
Patient continues to await guardianship for LTC placement.
--- NOTE | 2024-07-27 11:56 | P.CDIM_ITS ---
PROVIDER RESPONSE TEXT: To clarify, the appropriate diagnosis supported by the clinical indicators: Encephalopathy: metabolic QUERY TEXT: PHYSICIAN'S DOCUMENTATION REQUEST Date of Query: 07/27/2024 11:40 AM EST Patient Name: Vira Jules Admit Date: 07/26/2024 Dear Roberto Pruitt MD, A review of the medical record indicates additional documentation may be needed. Please review below and update the documentation accordingly. Clinical Indicators: Intermittent confusion, altered mental status with positive UTI treat with ceftin x7 days. Seeing people that are not there, visual hallucinations. The patient continues to have intermittent confusion, repeat urine to assure UTI treated given persis tent symptoms. Awaiting guardianship and [place] order. Based on the above, could you clarify if any of the following, is the most likely etiology of the con fusion/altered mental status? Encephalopathy Indicate type such as metabolic, toxic, etc. due to UTI Other etiology of the altered mental status, if known please specify, possible Dementia etc. Other (explain) Clinically unable to determine (explain) Thank you, Tiana Cid, CCS, CDIS Use of terms such as suspected, likely, concern for, or probable (associated with a specific diagnosi s that is being evaluated, monitored, or treated as if it exists) are acceptable and can be coded in the inpatient se tting, when documented at the time of discharge. Please use your independent medical judgment in providing your response. THIS QUERY IS PART OF THE PERMANENT MEDICAL RECORD
--- NOTE | 2024-07-27 14:05 | HO.WOUND ---
Wound Consult: Initial 84yr old?female admitted to [facility] on 07/25/24 - See progress notes and H&P for detailed history.? Wound consult placed for Coccyx.? Patient agreeable to assessment and photo documentation.? Patient reports mild tenderness to coccyx area. She is up to the recliner chair - would benefit from waffle cushion added to recliner chair, discontinuing brief use and addition of barrier cream. Coccyx Etiology: ?MASD - IAD (Moisture Associated Skin Damage - Incontinent Associated Dermatitis) Wound Bed: intact redness noted remains blanchable throughout Drainage / Odor: None Edges: ? well defined Trish wound: ? Intact - No Induration, Fluctuance or Warmth noted Pain: tenderness reported Goals of Treatment: ? barrier cream to protect from moisture and friction, removed brief use unless ambulating, waffle cushion when up to chair. Recommendations: 1. Turn and Reposition every 2 hours and as needed for patient comfort.? Use pillows or wedges to support off loading positions. 2. Off Load all bony prominences with use of pillows and heel boots if needed.? Apply Preventative foams where needed. ? 3. Monitor for incontinence and moisture control, use barrier creams when needed for prevention and treatment. 4. Provide adequate and supplemental nutrition.? 5. Order low air loss mattress. 6. When applicable maintain blood glucose levels per Providers order. 7. Coccyx - Off Load Pressure - Routine cleansing apply barrier cream to protect from moisture and friction teice daily. Removed brief unless ambulating and use waffle cushion when up to chair. Re-consult wound care Nurse for wound deterioration or wound changes.
--- NOTE | 2024-07-27 14:42 | P.PNIM_ITS ---
Subjective Subjective Date of Service: 07/27/24 Interval History: uti possible metabolic encephalopathy Review of Systems mental status improving no hallucinations Physical Exam 2 Vital Signs: Vital Signs: Last Vital Signs Temp 98.8 F 07/27/24 11:40 Pulse 90 07/27/24 11:40 Resp 16 07/27/24 11:40 BP 121/60 07/27/24 11:40 Pulse Ox 92 07/27/24 11:40 O2 Del Method Room Air 07/27/24 11:40 O2 Flow Rate 2 07/16/24 06:03 BMI result Body Mass Index 24.2 Appearance: aox2 ,plesantly confused. cvs: rrr, [id number] . res: clear to auscultation ,no rhonchii or wheezing abd: no rebound or guarding ,nt, bs present. ext pulses present , no cyanosis . neuro:nonfocal. Objective Data Active Medications Acetaminophen (Acetaminophen 325 Mg Tablet) 975 mg PO Q6H PRN PRN Reason: Pain, Mild 1-3,fever,headache Amlodipine Besylate (Amlodipine Besylate 5 Mg Tablet) 10 mg PO DAILY [facility]; Protocol Last Admin: 07/27/24 09:55 Dose: 10 mg Documented By: MARIE Aspirin (Aspirin 81 Mg Tab.Chew) 81 mg PO DAILY [facility] Last Admin: 07/27/24 09:55 Dose: 81 mg Documented By: MARIE Atorvastatin Calcium (Atorvastatin Calcium 10 Mg Tablet) 10 mg PO BEDTIME [facility] Last Admin: 07/26/24 23:16 Dose: 10 mg Documented By: MINNIE Enoxaparin Sodium (Enoxaparin Sodium 40 Mg/0.4 Ml Syringe) 40 mg SUBCUT Q24H [facility] Last Admin: 07/27/24 09:55 Dose: 40 mg Documented By: MARIE Fluoxetine HCl (Fluoxetine Hcl 20 Mg Capsule) 40 mg PO DAILY [facility] Last Admin: 07/27/24 09:55 Dose: 40 mg Documented By: MARIE Glucose (Glucose Gel 15 Gm Gel..Gram.) 15 gm PO Q15M PRN; Protocol PRN Reason: per Hypoglycemia Standing Ord. Dextrose (D10) 250 mls @ 750 mls/hr IV Q15M PRN; Protocol PRN Reason: per Hypoglycemia Standing Ord. Insulin Glargine (Insulin Glargine,Hum.Rec.Anlog 100 Unit/Ml 10 Ml Vial) 60 unit SUBCUT DAILY [facility] Last Admin: 07/27/24 09:55 Dose: 60 unit Documented By: MARIE Insulin Human Lispro (Insulin Lispro 100 Unit/Ml 3 Ml Vial) 0 unit SUBCUT QIDACHS [facility]; Protocol Last Admin: 07/27/24 11:34 Dose: Not Given Documented By: MARIE Non-Admin Reason: No Insulin Coverage Levothyroxine Sodium (Levothyroxine Sodium 112 Mcg Tablet) 112 mcg PO DAILY@0600 [facility] Last Admin: 07/27/24 05:25 Dose: 112 mcg Documented By: MINNIE Lidocaine (Lidocaine 4 % Patch Adh..Patch) 1 patch TRANSDERMA DAILY PRN PRN Reason: Pain Last Admin: 07/11/24 23:31 Dose: 1 patch Documented By: JOSSUE Nystatin (Nystatin Powder 15 Gm Bottle) 1 appl TOPICAL BID [facility]; Protocol Last Admin: 07/27/24 10:03 Dose: Not Given Documented By: MARIE Non-Admin Reason: Previously Administered Omeprazole (Omeprazole 20 Mg Capsule.) 20 mg PO BID@0630,1630 [facility] Last Admin: 07/27/24 05:25 Dose: 20 mg Documented By: MINNIE Prochlorperazine Edisylate (Prochlorperazine Edisylate 10 Mg/2 Ml Vial) 5 mg IVPUSH Q8H PRN PRN Reason: Nausea and Vomiting Sodium Chloride (0.9 % Sodium Chloride Flush 3 Ml Syringe) 3 ml IVFLUSH QSHIFT [facility] Last Admin: 07/27/24 08:00 Dose: Not Given Documented By: MARIE Non-Admin Reason: No Access Vitamin D (Cholecalciferol (Vitamin D3) 25 Mcg Tablet) 50 mcg PO DAILY [facility] Last Admin: 07/27/24 09:55 Dose: 50 mcg Documented By: MARIE Labs 07/26/24 04:57 07/26/24 04:57 Labs: Laboratory Results - last 24 hr 07/26/24 07/26/24 07/27/24 16:55 20:47 07:37 POC Glucose 150 H 172 H 87 07/27/24 11:26 POC Glucose 147 H Assessment and Plan (1) AMAURY (acute kidney injury): Status: Acute Plan 84 y/o F with a past medical history significant for major depressive disorder, HTN, HLD, CAD, IDDM, hypothyroid and GERD, presented to the ED on 07/10/2024 with visual hallucinations, nausea and severe diarrhea and has been monitored in ED overflow since. Followed by the ED providers and case management, pending guardianship. Urine on 07/19 showed acute UTI, treated with Ceftin 250 mg p.o. b.i.d. x7 days, culture was positive for aerococcus urinae and coag-negative Staphylococcus. Per nursing staff the patient has not had diarrhea and days, stool testing was never performed. The patient continues to have intermittent confusion. Altered mental status Possible sec to metabolic encphalopathy has amaury /dec po intake ,?uti leucocytosis seems improving, vital signs stable, no sepsis head CT negative UA initially positive for UTI urine culture -aerococcus urinae treated with ceftin x7 days, will repeat UA. 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 followed by case management, awaiting guardianship psych -stopped olanzapine UTI - treated with ceften BID x7 days as above - repeat UA. diarrhea seems improved amaury -due to diarrhae and low po intake improving with hydration and po intake gout L wrist, resolved - recent episode of gout on 07/21/2024, treated with colchicine x3 doses HTN - continue amlodipine HLD/CAD - continue atorvastatin and ASA 81 IDDM:fs flactauting - diabetic diet - blood sugars stable, add sliding scale as needed hold lantus. Hypothyroid - continue levothyroxine GERD - continue omeprazole VTE prophylaxis: Lovenox Patient with altered mental status awaiting guardianship anD has been monitored in ED overflow for 2 weeks, at this time admission required due to prolonged stay. Quality Stroke Does the patient have a stroke diagnosis?: No VTE Prior VTE?: No VTE Risk Level:: Medical - moderate - high VTE Device Contraindication: Treatment Not Indicated VTE Drug Contraindication: N/A - Med Ordered
--- NOTE | 2024-07-27 16:13 | PM.HEMONCCN ---
Subjective - Subjective Chief complaint: None reported Patient: new to practice Consult date: 07/27/24 Primary Care Provider: ANGELA Hastings HPI - Consult Narrative Reason for consult: Thrombocytosis, leukocytosis Narrative: Vira Jules is a 84 year old female who is admitted for mental status changes, metabolic encephalopathy and UTI noted to have chronic elevation in WBC count as well as platelets. Her WBC count was elevated dating back to 2018, her platelets have been high since 2021, they are gradually increasing. She has microcytic anemia. Patient has not been told of this in the past. She is able to converse but appears confused. She says both her children have and she only has 1 grandson who is alive. A few minutes later she started to talk about her granddaughter and great grandchildren. Review of Systems - Constitutional Reports as per HPI Comments: Unable to obtain - Neurologic Reports confusion, Denies dizziness, Denies headache(s), Denies loss of vision, Denies numbness, Reports other visual disturbances, Denies tingling PMFSH Medical History: Medical History (Last Updated 07/25/24 @ 21:38 by Isabell Ga PA-C) CAD (coronary artery disease) Diabetes HLD (hyperlipidemia) HTN (hypertension) Insulin dependent type 2 diabetes mellitus MDD (major depressive disorder), recurrent episode, moderate Social History: Social History (Last Reviewed 07/10/24 @ 09:40 by ANUP Moser) Living Situation History: Household Members: None Housing: Apartment Do you presently have visiting nurse or other home services: Yes Tobacco History: Patient Tobacco Use Status: Never used Tobacco e-Cigarette/Vaping Use: Never Used Advance Directives: Advance Directives Date on File: 10/19/23 Occupation Assessmet: service: No Sex/Gender Assessment: Sexual orientation: Straight/Heterosexual Home Medications and Allergies Current Medications: Current Medications Acetaminophen (Acetaminophen 325 Mg Tablet) 975 mg PO Q6H PRN PRN Reason: Pain, Mild 1-3,fever,headache Amlodipine Besylate (Amlodipine Besylate 5 Mg Tablet) 10 mg PO DAILY [facility]; Protocol Last Admin: 07/27/24 09:55 Dose: 10 mg Aspirin (Aspirin 81 Mg Tab.Chew) 81 mg PO DAILY [facility] Last Admin: 07/27/24 09:55 Dose: 81 mg Atorvastatin Calcium (Atorvastatin Calcium 10 Mg Tablet) 10 mg PO BEDTIME [facility] Last Admin: 07/26/24 23:16 Dose: 10 mg Enoxaparin Sodium (Enoxaparin Sodium 40 Mg/0.4 Ml Syringe) 40 mg SUBCUT Q24H [facility] Last Admin: 07/27/24 09:55 Dose: 40 mg Fluoxetine HCl (Fluoxetine Hcl 20 Mg Capsule) 40 mg PO DAILY [facility] Last Admin: 07/27/24 09:55 Dose: 40 mg Glucose (Glucose Gel 15 Gm Gel..Gram.) 15 gm PO Q15M PRN; Protocol PRN Reason: per Hypoglycemia Standing Ord. Dextrose (D10) 250 mls @ 750 mls/hr IV Q15M PRN; Protocol PRN Reason: per Hypoglycemia Standing Ord. Lactated Ringer's (Lr) 1,000 mls @ 80 mls/hr IVCONT .[id number] [facility] Insulin Human Lispro (Insulin Lispro 100 Unit/Ml 3 Ml Vial) 0 unit SUBCUT QIDACHS [facility]; Protocol Last Admin: 07/27/24 11:34 Dose: Not Given Levothyroxine Sodium (Levothyroxine Sodium 112 Mcg Tablet) 112 mcg PO DAILY@0600 [facility] Last Admin: 07/27/24 05:25 Dose: 112 mcg Lidocaine (Lidocaine 4 % Patch Adh..Patch) 1 patch TRANSDERMA DAILY PRN PRN Reason: Pain Last Admin: 07/11/24 23:31 Dose: 1 patch Nystatin (Nystatin Powder 15 Gm Bottle) 1 appl TOPICAL BID [facility]; Protocol Last Admin: 07/27/24 10:03 Dose: Not Given Omeprazole (Omeprazole 20 Mg Capsule.) 20 mg PO BID@0630,1630 [facility] Last Admin: 07/27/24 05:25 Dose: 20 mg Prochlorperazine Edisylate (Prochlorperazine Edisylate 10 Mg/2 Ml Vial) 5 mg IVPUSH Q8H PRN PRN Reason: Nausea and Vomiting Sodium Chloride (0.9 % Sodium Chloride Flush 3 Ml Syringe) 3 ml IVFLUSH QSHIFT [facility] Last Admin: 07/27/24 15:05 Dose: Not Given Vitamin D (Cholecalciferol (Vitamin D3) 25 Mcg Tablet) 50 mcg PO DAILY [facility] Last Admin: 07/27/24 09:55 Dose: 50 mcg Home Medications ?Medication ?Instructions ?Recorded ?Confirmed ?Type aspirin 81 mg chewable tablet 81 mg PO DAILY 10/18/23 07/11/24 History bupropion HCl 200 mg tablet,12 hr 200 mg PO BID 10/18/23 07/11/24 History sustained-release levothyroxine 112 mcg tablet 112 mcg PO DAILY@0600 10/18/23 07/11/24 History acetaminophen 325 mg tablet 650 mg PO Q4H PRN Pain 07/11/24 07/11/24 History amlodipine 5 mg tablet 10 mg PO DAILY 07/11/24 07/20/24 History celecoxib 100 mg capsule 100 mg PO BID PRN Pain 07/11/24 07/11/24 History cholecalciferol (vitamin D3) 50 50 mcg PO DAILY 07/11/24 07/11/24 History mcg (2,000 unit) tablet (Vitamin D3) insulin glargine 100 unit/mL (3 60 unit subcut DAILY 07/11/24 07/11/24 History mL) subcutaneous pen (Lantus Solostar U-100 Insulin) lidocaine 5 % topical patch 1 patch topical DAILY PRN Pain 07/11/24 07/11/24 History nystatin 100,000 unit/gram topical 1 appl topical BID-TID 07/11/24 07/11/24 History powder (Nystop) olanzapine 5 mg tablet 5 mg PO DAILY 07/11/24 07/11/24 History omeprazole 20 mg capsule,delayed 20 mg PO BID 07/20/24 07/20/24 History release Allergies Allergy/AdvReac Type Severity Reaction Status Date / Time bee pollen [BEE STINGS] Allergy Unknown UNKNOWN Verified 07/10/24 09:11 morphine [MORPHINE] Allergy Unknown UNKNOWN Verified 07/10/24 09:11 Penicillins [PENICILLINS] Allergy Unknown UNKNOWN Verified 07/10/24 09:11 Physical Exam Vital signs: Vital Signs Temp 98.8 F 07/27/24 11:40 Pulse 90 07/27/24 11:40 Resp 16 07/27/24 11:40 BP 121/60 07/27/24 11:40 Pulse Ox 92 07/27/24 11:40 O2 Del Method Room Air 07/27/24 11:40 O2 Flow Rate 2 07/16/24 06:03 Intake & Output 07/26/24 07/27/24 07/27/24 18:59 06:59 18:59 Intake Total 620 / 620 560 / 560 Output Total 0 / 0 400 / 400 Balance 620 / 620 160 / 160 Urine Output (Average ml/kg/hr) 0.00 0.46 Intake: Intake, Oral Amount 620 / 620 560 / 560 Output: Output, Urine Amount 0 / 0 400 / 400 Other: Meal Refused No NPO No Breakfast % Eaten 50% 75% Lunch % Eaten 75% Dinner % Eaten 25% Eating (Feeding) Ability 1:1 Feed 1:1 Feed Number of Incontinent Voids 3 Number of Unmeasured Voids 2 Number of Bowel Movements 0 Urine Incontinen purewick Urine Color Yellow Yellow Yellow Last Bowel Movement 07/25/24 Weight 72.3 kg Weight in Grams 62033 Weight 72.3 kg - Constitutional Present: mild distress, cooperative - Routine HEENT Exam Head: Present: normal inspection Eye: Present: EOMI - Routine Neck Exam Absent: lymphadenopathy - Routine Respiratory Exam Absent: accessory muscle use - Routine Cardiovascular Exam Cardiovascular: Present: S1, S2 - Routine Abdominal Exam Present: soft - Routine Neurological Exam Present: alert Hem/Onc Consult Result - Labs CBC & Chem 7: 07/26/24 04:57 07/26/24 04:57 Assessment and Plan Patient Active problem list reviewed?: Yes (1) Thrombocytosis Status: Chronic Assessment and plan: 1. This is a 84-year-old woman with neurocognitive impairment who is admitted for metabolic encephalopathy. She was noted to have chronic elevation in her platelet as well as WBC count. Platelet counts have gradually been going up, currently over [address] abdomen/pelvis performed in August 2023 did not show hepatosplenomegaly, she has not had a splenectomy. Given her age and chronic elevation in platelet counts with gradual worsening over the years, raises concern for myeloproliferative disorder such as essential thrombocytosis. She also appears to have microcytic anemia consistent with iron deficiency. She is on baby aspirin which I recommend to be continued lower her risk of thromboembolism. I recommend starting her on iron supplementation. JAK2 mutation can be submitted upon discharge. I thank you for the consultation. Please refer to Hematology upon discharge. - Time Spent With Patient Time Spent with Patient (in minutes): 15
[2024-07-27] MEDS: Lactated Ringers 1,000 ML 80 ML IVCONT (16:24)
[2024-07-27 16:41] LABS: Glucose, Whole Blood 86 mg/dL (60-115)
[2024-07-27 19:47] LABS: Glucose, Whole Blood 148 mg/dL (60-115)
[2024-07-27] MEDS: Atorvastatin Calcium 10 MG TABLET PO (20:43)
[2024-07-28 03:02] VITALS: BP 136/64; PULSE 89; RESP 16; TEMP 36.4; O2SAT 92
[2024-07-28] MEDS: Lactated Ringers 1,000 ML 80 ML IVCONT ×2 (04:01→16:23)
[2024-07-28] MEDS: Levothyroxine Sodium 112 MCG TABLET PO (05:32)
[2024-07-28] MEDS: Omeprazole 20 MG CAPSULE.DR PO ×2 (05:32→16:37)
[2024-07-28 07:01] LABS: Hematocrit 35.9 % (37.0-47.0); Hemoglobin 10.8 g/dl (12.0-16.0); Mean Corpuscular HGB Conc 30.1 g/dl (31.0-35.0); Mean Corpuscular Hemoglobin 22.7 pg (27.0-33.0); Mean Corpuscular Volume 75.4 fL (80.0-98.0); Mean Platelet Volume 9.7 fL (9.4-12.3); Platelet Count 904 X10*3/uL (160-400); Red Blood Count 4.76 X10*6/uL (4.20-5.50); Red Cell Distribution Width 16.4 % (11.0-16.0); White Blood Count 10.8 X10*3/uL (4.8-10.8)
[2024-07-28 08:05] LABS: Glucose, Whole Blood 71 mg/dL (60-115)
[2024-07-28 08:08] VITALS: BP 179/79; PULSE 91; RESP 12; TEMP 36.6; O2SAT 93
[2024-07-28] MEDS: FLUoxetine HCl 20 MG CAPSULE 40 MG PO (08:39)
[2024-07-28] MEDS: Cholecalciferol (Vitamin D3) 25 MCG TABLET 50 MCG PO (08:40)
[2024-07-28] MEDS: Aspirin 81 MG TAB.CHEW PO (08:40)
[2024-07-28] MEDS: amLODIPine Besylate 5 MG TABLET 10 MG PO (08:40)
[2024-07-28] MEDS: Enoxaparin Sodium 40 MG/0.4 ML SYRINGE SUBCUT (08:40)
[2024-07-28 10:59] LABS: Appearance Urine Clear; Color Urine Yellow; Glucose Urine UA Negative (Negative); Leukocyte Esterase Urine Small (1+) (Negative); Nitrite Urine Negative (Negative); UMIC TRIGGER UACC YES; Urine Blood Trace (Negative); Urine Ketones Negative (Negative); Urine Protein Negative (Neg-Trace)
[2024-07-28 11:34] LABS: Glucose, Whole Blood 116 mg/dL (60-115)
[2024-07-28 11:40] LABS: Bacteria Urine Trace (None Seen); Hyaline Casts Urine 0-2 /LPF (0-2); UACC Culture Trigger YES
[2024-07-28 11:55] VITALS: BP 137/76; PULSE 93; RESP 12; TEMP 36.1; O2SAT 94
--- NOTE | 2024-07-28 14:09 | P.PNIM_ITS ---
Subjective Subjective Date of Service: 07/28/24 Interval History: encephalopathy Review of Systems menatl status seems improved to her baseline no fever Physical Exam 2 Vital Signs: Vital Signs: Last Vital Signs Temp 97.0 F 07/28/24 11:55 Pulse 93 07/28/24 11:55 Resp 12 07/28/24 11:55 BP 137/76 07/28/24 11:55 Pulse Ox 94 07/28/24 11:55 O2 Del Method Room Air 07/28/24 11:55 O2 Flow Rate 2 07/16/24 06:03 BMI result Body Mass Index 24.2 Appearance: aox2 ,plesantly confused. cvs: rrr, [id number] . res: clear to auscultation ,no rhonchii or wheezing abd: no rebound or guarding ,nt, bs present. ext pulses present , no cyanosis . neuro:nonfocal. Objective Data Active Medications Acetaminophen (Acetaminophen 325 Mg Tablet) 975 mg PO Q6H PRN PRN Reason: Pain, Mild 1-3,fever,headache Amlodipine Besylate (Amlodipine Besylate 5 Mg Tablet) 10 mg PO DAILY [facility]; Protocol Last Admin: 07/28/24 08:40 Dose: 10 mg Documented By: BRINA Aspirin (Aspirin 81 Mg Tab.Chew) 81 mg PO DAILY [facility] Last Admin: 07/28/24 08:40 Dose: 81 mg Documented By: BRINA Atorvastatin Calcium (Atorvastatin Calcium 10 Mg Tablet) 10 mg PO BEDTIME [facility] Last Admin: 07/27/24 20:43 Dose: 10 mg Documented By: NAHED Enoxaparin Sodium (Enoxaparin Sodium 40 Mg/0.4 Ml Syringe) 40 mg SUBCUT Q24H [facility] Last Admin: 07/28/24 08:40 Dose: 40 mg Documented By: BRINA Fluoxetine HCl (Fluoxetine Hcl 20 Mg Capsule) 40 mg PO DAILY [facility] Last Admin: 07/28/24 08:39 Dose: 40 mg Documented By: BRINA Glucose (Glucose Gel 15 Gm Gel..Gram.) 15 gm PO Q15M PRN; Protocol PRN Reason: per Hypoglycemia Standing Ord. Dextrose (D10) 250 mls @ 750 mls/hr IV Q15M PRN; Protocol PRN Reason: per Hypoglycemia Standing Ord. Lactated Ringer's (Lr) 1,000 mls @ 80 mls/hr IVCONT .[id number] [facility] Last Admin: 07/28/24 04:01 Dose: 80 mls/hr Documented By: NHAED Insulin Human Lispro (Insulin Lispro 100 Unit/Ml 3 Ml Vial) 0 unit SUBCUT QIDACHS [facility]; Protocol Last Admin: 07/28/24 11:36 Dose: Not Given Documented By: BRINA Non-Admin Reason: No Insulin Coverage Levothyroxine Sodium (Levothyroxine Sodium 112 Mcg Tablet) 112 mcg PO DAILY@0600 [facility] Last Admin: 07/28/24 05:32 Dose: 112 mcg Documented By: NAHED Lidocaine (Lidocaine 4 % Patch Adh..Patch) 1 patch TRANSDERMA DAILY PRN PRN Reason: Pain Last Admin: 07/11/24 23:31 Dose: 1 patch Documented By: JOSSUE Nystatin (Nystatin Powder 15 Gm Bottle) 1 appl TOPICAL BID [facility]; Protocol Last Admin: 07/28/24 08:48 Dose: Not Given Documented By: BRINA Non-Admin Reason: skin resolved Omeprazole (Omeprazole 20 Mg Capsule.) 20 mg PO BID@0630,1630 [facility] Last Admin: 07/28/24 05:32 Dose: 20 mg Documented By: NAHED Prochlorperazine Edisylate (Prochlorperazine Edisylate 10 Mg/2 Ml Vial) 5 mg IVPUSH Q8H PRN PRN Reason: Nausea and Vomiting Sodium Chloride (0.9 % Sodium Chloride Flush 3 Ml Syringe) 3 ml IVFLUSH QSHIFT [facility] Last Admin: 07/28/24 08:44 Dose: Not Given Documented By: BRINA Non-Admin Reason: IV Running Vitamin D (Cholecalciferol (Vitamin D3) 25 Mcg Tablet) 50 mcg PO DAILY [facility] Last Admin: 07/28/24 08:40 Dose: 50 mcg Documented By: BRINA Labs 07/28/24 05:32 07/26/24 04:57 Labs: Laboratory Results - last 24 hr 07/27/24 07/27/24 07/28/24 16:37 19:42 05:32 MCV 75.4 L MCH 22.7 L MCHC 30.1 L RDW 16.4 H Plt Count 904 H MPV 9.7 Absolute Nucleated RBC 0.000 Nucleated RBC % (auto) 0.0 POC Glucose 86 148 H Urine Color Urine Appearance Urine pH Ur Specific [place] Urine Protein Urine Glucose (UA) Urine Ketones Urine Blood Urine Nitrite Ur Leukocyte Esterase Urine RBC Urine WBC Ur Squamous Epith Cells Urine Bacteria Hyaline Casts 07/28/24 07/28/24 07/28/24 07:59 11:14 Unknown MCV MCH MCHC RDW Plt Count MPV Absolute Nucleated RBC Nucleated RBC % (auto) POC Glucose 71 116 H Urine Color Yellow Urine Appearance Clear Urine pH 7.0 Ur Specific [place] 1.010 Urine Protein Negative Urine Glucose (UA) Negative Urine Ketones Negative Urine Blood Trace Urine Nitrite Negative Ur Leukocyte Esterase Small (1+) H Urine RBC 3-5 H Urine WBC 6-10 Ur Squamous Epith Cells 11-20 Urine Bacteria Trace Hyaline Casts 0-2 Assessment and Plan (1) Thrombocytosis: Status: Chronic (2) AMAURY (acute kidney injury): Status: Acute Assessment and Plan: 84 y/o F with a past medical history significant for major depressive disorder, HTN, HLD, CAD, IDDM, hypothyroid and GERD, presented to the ED on 07/10/2024 with visual hallucinations, nausea and severe diarrhea and has been monitored in ED overflow since. Followed by the ED providers and case management, pending guardianship. Urine on 07/19 showed acute UTI, treated with Ceftin 250 mg p.o. b.i.d. x7 days, culture was positive for aerococcus urinae and coag-negative Staphylococcus. Per nursing staff the patient has not had diarrhea and days, stool testing was never performed. The patient continues to have intermittent confusion. Altered mental status Possible sec to metabolic encphalopathy has amaury /dec po intake ,?uti leucocytosis seems improving, vital signs stable, no sepsis head CT negative UA initially positive for UTI urine culture -aerococcus urinae treated with ceftin x7 days, will repeat UA. mental status is improving seems near baseline as per health and social care teacher miss stanford. followed by case management, awaiting guardianship psych -stopped olanzapine UTI treated with ceften BID x7 days as above repeat UA: mild pyuria/trace bacteruria -wait for urine culture , no new symptoms ,mental status is improvin, defer antibiotics for now . diarrhea seems improved amaury -due to diarrhae and low po intake improving with hydration and po intake gout L wrist, resolved - recent episode of gout on 07/21/2024, treated with colchicine x3 doses HTN - continue amlodipine HLD/CAD - continue atorvastatin and ASA 81 IDDM:fs flactauting - diabetic diet - blood sugars stable, add sliding scale as needed hold lantus. Hypothyroid - continue levothyroxine GERD - continue omeprazole VTE prophylaxis: Lovenox Patient with altered mental status awaiting guardianship anD has been monitored in ED overflow for 2 weeks, at this time admission required due to prolonged stay. Quality Stroke Does the patient have a stroke diagnosis?: No VTE Prior VTE?: No VTE Risk Level:: Medical - moderate - high VTE Device Contraindication: Treatment Not Indicated VTE Drug Contraindication: N/A - Med Ordered
[2024-07-28 16:30] LABS: Glucose, Whole Blood 123 mg/dL (60-115)
[2024-07-28 19:53] VITALS: BP 135/62; PULSE 100; RESP 18; TEMP 36.8; O2SAT 95
[2024-07-28] MEDS: Atorvastatin Calcium 10 MG TABLET PO (20:09)
[2024-07-28] MEDS: Insulin Lispro 100 UNIT/ML 3 ML VIAL SUBCUT (20:09)
[2024-07-28 20:26] LABS: Glucose, Whole Blood 190 mg/dL (60-115)
[2024-07-28 23:10] VITALS: BP 127/62; PULSE 89; RESP 16; TEMP 36.3; O2SAT 93
[2024-07-29] MEDS: Acetaminophen 325 MG TABLET 975 MG PO (00:31)
[2024-07-29 04:00] VITALS: BP 136/74; PULSE 88; RESP 17; TEMP 36.3; O2SAT 94
[2024-07-29] MEDS: Lactated Ringers 1,000 ML 80 ML IVCONT (04:51)
[2024-07-29] MEDS: Omeprazole 20 MG CAPSULE.DR PO ×2 (05:28→16:36)
[2024-07-29] MEDS: Levothyroxine Sodium 112 MCG TABLET PO (05:29)
[2024-07-29 07:54] VITALS: BP 141/60; PULSE 94; RESP 18; O2SAT 95
[2024-07-29 08:10] LABS: Glucose, Whole Blood 89 mg/dL (60-115)
[2024-07-29] MEDS: Cholecalciferol (Vitamin D3) 25 MCG TABLET 50 MCG PO (08:33)
[2024-07-29] MEDS: FLUoxetine HCl 20 MG CAPSULE 40 MG PO (08:33)
[2024-07-29] MEDS: amLODIPine Besylate 5 MG TABLET 10 MG PO (08:33)
[2024-07-29] MEDS: Aspirin 81 MG TAB.CHEW PO (08:33)
[2024-07-29] MEDS: Enoxaparin Sodium 40 MG/0.4 ML SYRINGE SUBCUT (08:34)
[2024-07-29] MEDS: 0.9 % Sodium Chloride Flush 3 ML SYRINGE IVFLUSH ×2 (08:34→20:55)
--- NOTE | 2024-07-29 10:38 | MHC.CM.PN ---
Patient continues to await guardianship & placement.
[2024-07-29 11:34] LABS: Glucose, Whole Blood 90 mg/dL (60-115)
[2024-07-29 11:41] VITALS: BP 126/60; PULSE 77; RESP 18; TEMP 36.2; O2SAT 94
--- NOTE | 2024-07-29 13:05 | P.PNIM_ITS ---
Subjective Subjective Date of Service: 07/29/24 Interval History: amaury Review of Systems seems mental status near baseline no new c/o. Physical Exam 2 Vital Signs: Vital Signs: Last Vital Signs Temp 97.2 F 07/29/24 11:41 Pulse 77 07/29/24 11:41 Resp 18 07/29/24 11:41 BP 126/60 07/29/24 11:41 Pulse Ox 94 07/29/24 11:41 O2 Del Method Room Air 07/29/24 11:41 O2 Flow Rate 2 07/16/24 06:03 BMI result Body Mass Index 24.2 Appearance: aox2 ,plesantly confused. cvs: rrr, [id number] . res: clear to auscultation ,no rhonchii or wheezing abd: no rebound or guarding ,nt, bs present. ext pulses present , no cyanosis . neuro:nonfocal. Objective Data Active Medications Acetaminophen (Acetaminophen 325 Mg Tablet) 975 mg PO Q6H PRN PRN Reason: Pain, Mild 1-3,fever,headache Last Admin: 07/29/24 00:31 Dose: 975 mg Documented By: STACY Amlodipine Besylate (Amlodipine Besylate 5 Mg Tablet) 10 mg PO DAILY [facility]; Protocol Last Admin: 07/29/24 08:33 Dose: 10 mg Documented By: TIFFANY Aspirin (Aspirin 81 Mg Tab.Chew) 81 mg PO DAILY [facility] Last Admin: 07/29/24 08:33 Dose: 81 mg Documented By: TIFFANY Atorvastatin Calcium (Atorvastatin Calcium 10 Mg Tablet) 10 mg PO BEDTIME [facility] Last Admin: 07/28/24 20:09 Dose: 10 mg Documented By: STACY Enoxaparin Sodium (Enoxaparin Sodium 40 Mg/0.4 Ml Syringe) 40 mg SUBCUT Q24H [facility] Last Admin: 07/29/24 08:34 Dose: 40 mg Documented By: TIFFANY Fluoxetine HCl (Fluoxetine Hcl 20 Mg Capsule) 40 mg PO DAILY [facility] Last Admin: 07/29/24 08:33 Dose: 40 mg Documented By: TIFFANY Glucose (Glucose Gel 15 Gm Gel..Gram.) 15 gm PO Q15M PRN; Protocol PRN Reason: per Hypoglycemia Standing Ord. Dextrose (D10) 250 mls @ 750 mls/hr IV Q15M PRN; Protocol PRN Reason: per Hypoglycemia Standing Ord. Lactated Ringer's (Lr) 1,000 mls @ 80 mls/hr IVCONT .[id number] [facility] Last Admin: 07/29/24 04:51 Dose: 80 mls/hr Documented By: STACY Insulin Human Lispro (Insulin Lispro 100 Unit/Ml 3 Ml Vial) 0 unit SUBCUT QIDACHS [facility]; Protocol Last Admin: 07/29/24 11:43 Dose: Not Given Documented By: TIFFANY Non-Admin Reason: NPO Levothyroxine Sodium (Levothyroxine Sodium 112 Mcg Tablet) 112 mcg PO DAILY@0600 [facility] Last Admin: 07/29/24 05:29 Dose: 112 mcg Documented By: STACY Lidocaine (Lidocaine 4 % Patch Adh..Patch) 1 patch TRANSDERMA DAILY PRN PRN Reason: Pain Last Admin: 07/11/24 23:31 Dose: 1 patch Documented By: JOSSUE Nystatin (Nystatin Powder 15 Gm Bottle) 1 appl TOPICAL BID [facility]; Protocol Last Admin: 07/29/24 08:37 Dose: Not Given Documented By: TIFFANY Non-Admin Reason: Med Not Available Omeprazole (Omeprazole 20 Mg Capsule.) 20 mg PO BID@0630,1630 [facility] Last Admin: 07/29/24 05:28 Dose: 20 mg Documented By: STACY Prochlorperazine Edisylate (Prochlorperazine Edisylate 10 Mg/2 Ml Vial) 5 mg IVPUSH Q8H PRN PRN Reason: Nausea and Vomiting Sodium Chloride (0.9 % Sodium Chloride Flush 3 Ml Syringe) 3 ml IVFLUSH QSHIFT [facility] Last Admin: 07/29/24 08:34 Dose: 3 ml Documented By: TIFFANY Vitamin D (Cholecalciferol (Vitamin D3) 25 Mcg Tablet) 50 mcg PO DAILY [facility] Last Admin: 07/29/24 08:33 Dose: 50 mcg Documented By: TIFFANY Labs 07/28/24 05:32 07/26/24 04:57 Labs: Laboratory Results - last 24 hr 07/28/24 07/28/24 07/29/24 16:21 20:01 08:06 POC Glucose 123 H 190 H 89 07/29/24 11:28 POC Glucose 90 Microbiology Microbiology Results: Microbiology 07/28/24 Unknown Urine Culture - Final Urine clean catch - Clean Catch Midstream Assessment and Plan (1) Thrombocytosis: Status: Chronic (2) AMAURY (acute kidney injury): Status: Acute Assessment and Plan: 84 y/o F with a past medical history significant for major depressive disorder, HTN, HLD, CAD, IDDM, hypothyroid and GERD, presented to the ED on 07/10/2024 with visual hallucinations, nausea and severe diarrhea and has been monitored in ED overflow since. Followed by the ED providers and case management, pending guardianship. Urine on 07/19 showed acute UTI, treated with Ceftin 250 mg p.o. b.i.d. x7 days, culture was positive for aerococcus urinae and coag-negative Staphylococcus. Per nursing staff the patient has not had diarrhea and days, stool testing was never performed. The patient continues to have intermittent confusion. Altered mental status Possible sec to metabolic encphalopathy has amaury /dec po intake ,?uti leucocytosis seems improving, vital signs stable, no sepsis head CT negative UA initially positive for UTI urine culture -aerococcus urinae treated with ceftin x7 days, will repeat UA. mental status is improving seems near baseline as per primary care sales representative miss stanford. followed by case management, awaiting guardianship psych -stopped olanzapine UTI treated with ceften BID x7 days as above repeat UA: mild pyuria/trace bacteruria -repeat urine culture < 45072 cfu , no new symptoms ,mental status is improvin, defer antibiotics for now . diarrhea seems improved amaury -due to diarrhae and low po intake improving with hydration and po intake gout L wrist, resolved - recent episode of gout on 07/21/2024, treated with colchicine x3 doses HTN - continue amlodipine HLD/CAD - continue atorvastatin and ASA 81 IDDM:fs flactauting - diabetic diet - blood sugars stable, add sliding scale as needed hold lantus. Hypothyroid - continue levothyroxine GERD - continue omeprazole VTE prophylaxis: Lovenox Patient with altered mental status awaiting guardianship anD has been monitored in ED overflow for 2 weeks, at this time admission required due to prolonged stay. Quality Stroke Does the patient have a stroke diagnosis?: No VTE Prior VTE?: No VTE Risk Level:: Medical - moderate - high VTE Device Contraindication: Treatment Not Indicated VTE Drug Contraindication: N/A - Med Ordered
[2024-07-29 15:31] VITALS: BP 146/64; PULSE 98; RESP 18; TEMP 36.8; O2SAT 92
[2024-07-29 16:15] LABS: Glucose, Whole Blood 176 mg/dL (60-115)
[2024-07-29] MEDS: Insulin Lispro 100 UNIT/ML 3 ML VIAL SUBCUT ×2 (16:36→20:54)
[2024-07-29 19:22] VITALS: BP 147/68; PULSE 100; RESP 18; TEMP 37.4; O2SAT 93
[2024-07-29 19:45] LABS: Glucose, Whole Blood 165 mg/dL (60-115)
[2024-07-29] MEDS: Atorvastatin Calcium 10 MG TABLET PO (20:54)
[2024-07-29 23:37] VITALS: BP 125/61; PULSE 86; RESP 18; TEMP 36.2; O2SAT 92
[2024-07-30 03:40] VITALS: BP 137/61; PULSE 87; RESP 18; TEMP 36.4; O2SAT 96
[2024-07-30] MEDS: Omeprazole 20 MG CAPSULE.DR PO ×2 (05:18→17:23)
[2024-07-30] MEDS: Levothyroxine Sodium 112 MCG TABLET PO (05:18)
[2024-07-30 07:31] LABS: Glucose, Whole Blood 120 mg/dL (60-115)
[2024-07-30 07:32] VITALS: BP 151/76; PULSE 98; RESP 18; TEMP 36.7; O2SAT 95
[2024-07-30] MEDS: 0.9 % Sodium Chloride Flush 3 ML SYRINGE IVFLUSH ×3 (08:50→20:36)
[2024-07-30] MEDS: Aspirin 81 MG TAB.CHEW PO (08:50)
[2024-07-30] MEDS: amLODIPine Besylate 5 MG TABLET 10 MG PO (08:51)
[2024-07-30] MEDS: Cholecalciferol (Vitamin D3) 25 MCG TABLET 50 MCG PO (08:51)
[2024-07-30] MEDS: FLUoxetine HCl 20 MG CAPSULE 40 MG PO (08:51)
[2024-07-30] MEDS: Enoxaparin Sodium 40 MG/0.4 ML SYRINGE SUBCUT (08:52)
[2024-07-30 11:17] LABS: Glucose, Whole Blood 333 mg/dL (60-115)
[2024-07-30 12:00] VITALS: BP 146/68; PULSE 94; RESP 18; TEMP 36.6; O2SAT 94
[2024-07-30] MEDS: Insulin Lispro 100 UNIT/ML 3 ML VIAL SUBCUT ×2 (12:14→20:36)
--- NOTE | 2024-07-30 12:43 | HO.PM.IMPN ---
Subjective Subjective Date of Service: 07/30/24 Interval History: follow up Review of Systems seems mental status near baseline no new c/o. Physical Exam Vital Signs: Vital Signs: Last Vital Signs Temp 98.1 F 07/30/24 07:32 Pulse 98 07/30/24 07:32 Resp 18 07/30/24 07:32 BP 151/76 H 07/30/24 07:32 Pulse Ox 95 07/30/24 07:32 O2 Del Method Room Air 07/30/24 07:32 O2 Flow Rate 2 07/16/24 06:03 BMI result Body Mass Index 24.2 Appearance: aox2 ,plesantly confused. cvs: [id number], [id number] . res: clear to auscultation ,no rhonchii or wheezing abd: no rebound or guarding ,nt, bs present. ext pulses present , no cyanosis . neuro:nonfocal. Objective Data Active Medications Acetaminophen (Acetaminophen 325 Mg Tablet) 975 mg PO Q6H PRN PRN Reason: Pain, Mild 1-3,fever,headache Last Admin: 07/29/24 00:31 Dose: 975 mg Documented By: STACY Amlodipine Besylate (Amlodipine Besylate 5 Mg Tablet) 10 mg PO DAILY [facility]; Protocol Last Admin: 07/30/24 08:51 Dose: 10 mg Documented By: ALLEGRA Aspirin (Aspirin 81 Mg Tab.Chew) 81 mg PO DAILY [facility] Last Admin: 07/30/24 08:50 Dose: 81 mg Documented By: ALLEGRA Atorvastatin Calcium (Atorvastatin Calcium 10 Mg Tablet) 10 mg PO BEDTIME [facility] Last Admin: 07/29/24 20:54 Dose: 10 mg Documented By: ADAM Enoxaparin Sodium (Enoxaparin Sodium 40 Mg/0.4 Ml Syringe) 40 mg SUBCUT Q24H [facility] Last Admin: 07/30/24 08:52 Dose: 40 mg Documented By: ALLEGRA Fluoxetine HCl (Fluoxetine Hcl 20 Mg Capsule) 40 mg PO DAILY [facility] Last Admin: 07/30/24 08:51 Dose: 40 mg Documented By: ALLEGRA Glucose (Glucose Gel 15 Gm Gel..Gram.) 15 gm PO Q15M PRN; Protocol PRN Reason: per Hypoglycemia Standing Ord. Dextrose (D10) 250 mls @ 750 mls/hr IV Q15M PRN; Protocol PRN Reason: per Hypoglycemia Standing Ord. Insulin Human Lispro (Insulin Lispro 100 Unit/Ml 3 Ml Vial) 0 unit SUBCUT QIDACHS [facility]; Protocol Last Admin: 07/30/24 12:14 Dose: 8 unit Documented By: ALLEGRA Levothyroxine Sodium (Levothyroxine Sodium 112 Mcg Tablet) 112 mcg PO DAILY@0600 [facility] Last Admin: 07/30/24 05:18 Dose: 112 mcg Documented By: ADAM Lidocaine (Lidocaine 4 % Patch Adh..Patch) 1 patch TRANSDERMA DAILY PRN PRN Reason: Pain Last Admin: 07/11/24 23:31 Dose: 1 patch Documented By: JOSSUE Nystatin (Nystatin Powder 15 Gm Bottle) 1 appl TOPICAL BID [facility]; Protocol Last Admin: 07/29/24 21:51 Dose: Not Given Documented By: ADAM Non-Admin Reason: rashes resolved Omeprazole (Omeprazole 20 Mg Capsule.) 20 mg PO BID@0630,1630 [facility] Last Admin: 07/30/24 05:18 Dose: 20 mg Documented By: ADAM Prochlorperazine Edisylate (Prochlorperazine Edisylate 10 Mg/2 Ml Vial) 5 mg IVPUSH Q8H PRN PRN Reason: Nausea and Vomiting Sodium Chloride (0.9 % Sodium Chloride Flush 3 Ml Syringe) 3 ml IVFLUSH QSHIFT [facility] Last Admin: 07/30/24 08:50 Dose: 3 ml Documented By: ALLEGRA Vitamin D (Cholecalciferol (Vitamin D3) 25 Mcg Tablet) 50 mcg PO DAILY [facility] Last Admin: 07/30/24 08:51 Dose: 50 mcg Documented By: ALLEGRA Labs 07/28/24 05:32 07/26/24 04:57 Labs: Laboratory Results - last 24 hr 07/29/24 07/29/24 07/30/24 16:11 19:25 07:27 POC Glucose 176 H 165 H 120 H 07/30/24 11:14 POC Glucose 333 H Microbiology Microbiology Results: Microbiology 07/28/24 Unknown Urine Culture - Final Urine clean catch - Clean Catch Midstream Assessment and Plan (1) Thrombocytosis: Status: Chronic (2) AMAURY (acute kidney injury): Status: Acute Assessment and Plan: 84 y/o F with a past medical history significant for major depressive disorder, HTN, HLD, CAD, IDDM, hypothyroid and GERD, presented to the ED on 07/10/2024 with visual hallucinations, nausea and severe diarrhea and has been monitored in ED overflow since. Followed by the ED providers and case management, pending guardianship. Urine on 07/19 showed acute UTI, treated with Ceftin 250 mg p.o. b.i.d. x7 days, culture was positive for aerococcus urinae and coag-negative Staphylococcus. Per nursing staff the patient has not had diarrhea and days, stool testing was never performed. The patient continues to have intermittent confusion. Altered mental status Possible sec to metabolic encphalopathy has amaury /dec po intake ,?uti leucocytosis seems improving, vital signs stable, no sepsis head CT negative UA initially positive for UTI urine culture -aerococcus urinae treated with ceftin x7 days, will repeat UA. mental status is improving seems near baseline as per residential care officer miss stanford. followed by case management, awaiting guardianship psych -stopped olanzapine UTI treated with ceften BID x7 days as above repeat UA: mild pyuria/trace bacteruria -repeat urine culture < 86818 cfu , no new symptoms ,mental status is improvin, defer antibiotics for now . diarrhea seems improved amaury -due to diarrhae and low po intake improving with hydration and po intake gout L wrist, resolved - recent episode of gout on 07/21/2024, treated with colchicine x3 doses HTN - continue amlodipine HLD/CAD - continue atorvastatin and ASA 81 IDDM:fs flactauting - diabetic diet - blood sugars stable, add sliding scale as needed hold lantus. Hypothyroid - continue levothyroxine GERD - continue omeprazole VTE prophylaxis: Lovenox dispo:awaiting placement Quality Stroke Does the patient have a stroke diagnosis?: No VTE Prior VTE?: No VTE Risk Level:: Medical - moderate - high VTE Device Contraindication: Treatment Not Indicated VTE Drug Contraindication: N/A - Med Ordered
[2024-07-30 15:54] VITALS: BP 142/64; PULSE 97; RESP 18; TEMP 36.6; O2SAT 94
[2024-07-30 16:23] LABS: Glucose, Whole Blood 81 mg/dL (60-115)
[2024-07-30 19:29] VITALS: BP 160/69; PULSE 100; RESP 20; TEMP 36.6; O2SAT 93
[2024-07-30 20:03] LABS: Glucose, Whole Blood 171 mg/dL (60-115)
[2024-07-30] MEDS: Atorvastatin Calcium 10 MG TABLET PO (20:36)
[2024-07-30 23:54] VITALS: BP 189/81; PULSE 98; RESP 18; TEMP 36.9; O2SAT 93
[2024-07-31 04:00] VITALS: BP 142/76; PULSE 96; RESP 18; TEMP 37.2; O2SAT 94
[2024-07-31] MEDS: Omeprazole 20 MG CAPSULE.DR PO ×2 (05:27→17:19)
[2024-07-31] MEDS: Levothyroxine Sodium 112 MCG TABLET PO (05:27)
[2024-07-31 07:27] VITALS: BP 138/64; PULSE 97; RESP 20; TEMP 36.9; O2SAT 93
[2024-07-31 07:57] LABS: Glucose, Whole Blood 128 mg/dL (60-115)
[2024-07-31] MEDS: Aspirin 81 MG TAB.CHEW PO (08:13)
[2024-07-31] MEDS: Cholecalciferol (Vitamin D3) 25 MCG TABLET 50 MCG PO (08:13)
[2024-07-31] MEDS: FLUoxetine HCl 20 MG CAPSULE 40 MG PO (08:13)
[2024-07-31] MEDS: amLODIPine Besylate 5 MG TABLET 10 MG PO (08:14)
[2024-07-31] MEDS: Enoxaparin Sodium 40 MG/0.4 ML SYRINGE SUBCUT (08:14)
[2024-07-31] MEDS: Ferrous Sulfate 300 MG/5 ML LIQUID PO (08:14)
[2024-07-31] MEDS: 0.9 % Sodium Chloride Flush 3 ML SYRINGE IVFLUSH ×2 (08:20→17:18)
--- NOTE | 2024-07-31 10:57 | P.PNIM_ITS ---
Subjective Subjective Date of Service: 07/31/24 Interval History: follow up Review of Systems seems mental status near baseline no new c/o. Physical Exam 2 Vital Signs: Vital Signs: Last Vital Signs Temp 98.4 F 07/31/24 07:27 Pulse 97 07/31/24 07:27 Resp 20 07/31/24 07:27 BP 138/64 07/31/24 07:27 Pulse Ox 93 07/31/24 07:27 O2 Del Method Room Air 07/31/24 07:27 O2 Flow Rate 2 07/16/24 06:03 BMI result Body Mass Index 24.2 Appearance: aox2 ,plesantly confused. cvs: rrr, [id number] . res: clear to auscultation ,no rhonchii or wheezing abd: no rebound or guarding ,nt, bs present. ext pulses present , no cyanosis . neuro:nonfocal. Objective Data Active Medications Acetaminophen (Acetaminophen 325 Mg Tablet) 975 mg PO Q6H PRN PRN Reason: Pain, Mild 1-3,fever,headache Last Admin: 07/29/24 00:31 Dose: 975 mg Documented By: STACY Amlodipine Besylate (Amlodipine Besylate 5 Mg Tablet) 10 mg PO DAILY [facility]; Protocol Last Admin: 07/31/24 08:14 Dose: 10 mg Documented By: ALLEGRA Aspirin (Aspirin 81 Mg Tab.Chew) 81 mg PO DAILY [facility] Last Admin: 07/31/24 08:13 Dose: 81 mg Documented By: ALLEGRA Atorvastatin Calcium (Atorvastatin Calcium 10 Mg Tablet) 10 mg PO BEDTIME [facility] Last Admin: 07/30/24 20:36 Dose: 10 mg Documented By: ADAM Enoxaparin Sodium (Enoxaparin Sodium 40 Mg/0.4 Ml Syringe) 40 mg SUBCUT Q24H [facility] Last Admin: 07/31/24 08:14 Dose: 40 mg Documented By: ALLEGRA Ferrous Sulfate (Ferrous Sulfate 300 Mg/5 Ml Liquid) 300 mg PO DAILY [facility] Last Admin: 07/31/24 08:14 Dose: 300 mg Documented By: ALLEGRA Fluoxetine HCl (Fluoxetine Hcl 20 Mg Capsule) 40 mg PO DAILY [facility] Last Admin: 07/31/24 08:13 Dose: 40 mg Documented By: ALLEGRA Glucose (Glucose Gel 15 Gm Gel..Gram.) 15 gm PO Q15M PRN; Protocol PRN Reason: per Hypoglycemia Standing Ord. Dextrose (D10) 250 mls @ 750 mls/hr IV Q15M PRN; Protocol PRN Reason: per Hypoglycemia Standing Ord. Insulin Human Lispro (Insulin Lispro 100 Unit/Ml 3 Ml Vial) 0 unit SUBCUT QIDACHS [facility]; Protocol Last Admin: 07/31/24 08:06 Dose: Not Given Documented By: ALLEGRA Non-Admin Reason: No Insulin Coverage Levothyroxine Sodium (Levothyroxine Sodium 112 Mcg Tablet) 112 mcg PO DAILY@0600 [facility] Last Admin: 07/31/24 05:27 Dose: 112 mcg Documented By: ADAM Lidocaine (Lidocaine 4 % Patch Adh..Patch) 1 patch TRANSDERMA DAILY PRN PRN Reason: Pain Last Admin: 07/11/24 23:31 Dose: 1 patch Documented By: JOSSUE Nystatin (Nystatin Powder 15 Gm Bottle) 1 appl TOPICAL BID [facility]; Protocol Last Admin: 07/31/24 08:21 Dose: Not Given Documented By: ALLEGRA Non-Admin Reason: rash resolved Omeprazole (Omeprazole 20 Mg Capsule.) 20 mg PO BID@0630,1630 [facility] Last Admin: 07/31/24 05:27 Dose: 20 mg Documented By: ADAM Prochlorperazine Edisylate (Prochlorperazine Edisylate 10 Mg/2 Ml Vial) 5 mg IVPUSH Q8H PRN PRN Reason: Nausea and Vomiting Sodium Chloride (0.9 % Sodium Chloride Flush 3 Ml Syringe) 3 ml IVFLUSH QSHIFT [facility] Last Admin: 07/31/24 08:20 Dose: 3 ml Documented By: ALLEGRA Vitamin D (Cholecalciferol (Vitamin D3) 25 Mcg Tablet) 50 mcg PO DAILY [facility] Last Admin: 07/31/24 08:13 Dose: 50 mcg Documented By: ALLEGRA Labs 07/28/24 05:32 07/26/24 04:57 Labs: Laboratory Results - last 24 hr 07/30/24 07/30/24 07/30/24 11:14 16:17 19:31 POC Glucose 333 H 81 171 H 07/31/24 07:30 POC Glucose 128 H Assessment and Plan (1) Thrombocytosis: Status: Chronic (2) AMAURY (acute kidney injury): Status: Acute Assessment and Plan: 84 y/o F with a past medical history significant for major depressive disorder, HTN, HLD, CAD, IDDM, hypothyroid and GERD, presented to the ED on 07/10/2024 with visual hallucinations, nausea and severe diarrhea and has been monitored in ED overflow since. Followed by the ED providers and case management, pending guardianship. Urine on 07/19 showed acute UTI, treated with Ceftin 250 mg p.o. b.i.d. x7 days, culture was positive for aerococcus urinae and coag-negative Staphylococcus. Per nursing staff the patient has not had diarrhea and days, stool testing was never performed. The patient continues to have intermittent confusion. Altered mental status Possible sec to metabolic encphalopathy has amaury /dec po intake ,?uti leucocytosis seems improving, vital signs stable, no sepsis head CT negative UA initially positive for UTI urine culture -aerococcus urinae treated with ceftin x7 days, will repeat UA. mental status is improving seems near baseline as per care provider miss stanford. followed by case management, awaiting guardianship psych -stopped olanzapine thromocytosis -improving seen by hematology Dr bell:Given her age and chronic elevation in platelet counts with gradual worsening over the years, raises concern for myeloproliferative disorder such as essential thrombocytosis. continue asa, added iron supplements JAK2 mutation can be submitted upon discharge. need to follow up with hematology/oncology upon discharge. UTI treated with ceften BID x7 days as above repeat UA: mild pyuria/trace bacteruria -repeat urine culture < 64740 cfu , no new symptoms ,mental status is improvin, defer antibiotics for now . diarrhea seems improved amaury -due to diarrhae and low po intake improving with hydration and po intake gout L wrist, resolved - recent episode of gout on 07/21/2024, treated with colchicine x3 doses HTN - continue amlodipine HLD/CAD - continue atorvastatin and ASA 81 IDDM:fs flactauting - diabetic diet - blood sugars stable, add sliding scale as needed hold lantus. Hypothyroid - continue levothyroxine GERD - continue omeprazole VTE prophylaxis: Lovenox dispo:awaiting placement Quality Stroke Does the patient have a stroke diagnosis?: No VTE Prior VTE?: No VTE Risk Level:: Medical - moderate - high VTE Device Contraindication: Treatment Not Indicated VTE Drug Contraindication: N/A - Med Ordered
[2024-07-31 11:15] LABS: Glucose, Whole Blood 164 mg/dL (60-115)
[2024-07-31] MEDS: Insulin Lispro 100 UNIT/ML 3 ML VIAL SUBCUT ×3 (11:55→22:02)
[2024-07-31 12:00] VITALS: BP 134/59; PULSE 87; RESP 20; TEMP 36.7; O2SAT 96
[2024-07-31 15:03] VITALS: BP 141/68; PULSE 116; RESP 20; TEMP 37.1; O2SAT 94
[2024-07-31 16:30] LABS: Glucose, Whole Blood 160 mg/dL (60-115)
[2024-07-31] MEDS: Acetaminophen 325 MG TABLET 975 MG PO (18:03)
[2024-07-31 19:33] VITALS: BP 125/58; PULSE 109; RESP 16; TEMP 36.9; O2SAT 93
[2024-07-31] MEDS: Atorvastatin Calcium 10 MG TABLET PO (20:07)
[2024-07-31 20:57] LABS: Glucose, Whole Blood 193 mg/dL (60-115)
[2024-07-31 23:38] VITALS: BP 131/64; PULSE 95; RESP 17; TEMP 36.3; O2SAT 93
[2024-08-01] VITALS (7 sets, daily range): BP systolic 132–154; BP diastolic 70–84; PULSE 99–114; RESP 17–20; TEMP 36.7–37.5; O2SAT 92–94
[2024-08-01] MEDS: 0.9 % Sodium Chloride Flush 3 ML SYRINGE IVFLUSH ×3 (00:19→21:22)
[2024-08-01] MEDS: Levothyroxine Sodium 112 MCG TABLET PO (05:26)
[2024-08-01] MEDS: Omeprazole 20 MG CAPSULE.DR PO ×2 (05:26→16:58)
[2024-08-01 07:35] LABS: Glucose, Whole Blood 141 mg/dL (60-115)
[2024-08-01] MEDS: FLUoxetine HCl 20 MG CAPSULE 40 MG PO (09:16)
[2024-08-01] MEDS: Ferrous Sulfate 300 MG/5 ML LIQUID PO (09:16)
[2024-08-01] MEDS: Enoxaparin Sodium 40 MG/0.4 ML SYRINGE SUBCUT (09:16)
[2024-08-01] MEDS: Aspirin 81 MG TAB.CHEW PO (09:16)
[2024-08-01] MEDS: amLODIPine Besylate 5 MG TABLET 10 MG PO (09:16)
[2024-08-01] MEDS: Cholecalciferol (Vitamin D3) 25 MCG TABLET 50 MCG PO (09:16)
[2024-08-01 11:49] LABS: Glucose, Whole Blood 171 mg/dL (60-115)
[2024-08-01] MEDS: Insulin Lispro 100 UNIT/ML 3 ML VIAL SUBCUT ×2 (11:57→16:58)
--- NOTE | 2024-08-01 13:49 | MHC.CM.PN ---
Patient continues to await guardianship & placement.
--- NOTE | 2024-08-01 14:02 | HO.PM.IMPN ---
Subjective Subjective Date of Service: 08/01/24 Interval History: follow up Review of Systems seems mental status near baseline no new c/o. Physical Exam Vital Signs: Vital Signs: Last Vital Signs Temp 99.5 F 08/01/24 11:18 Pulse 108 H 08/01/24 11:18 Resp 18 08/01/24 11:18 BP 139/78 08/01/24 11:18 Pulse Ox 92 08/01/24 11:18 O2 Del Method Room Air 08/01/24 11:18 O2 Flow Rate 2 07/16/24 06:03 BMI result Body Mass Index 24.2 Appearance: aox2 ,plesantly confused. cvs: rrr, [id number] . res: clear to auscultation ,no rhonchii or wheezing abd: no rebound or guarding ,nt, bs present. ext pulses present , no cyanosis . neuro:nonfocal. Objective Data Active Medications Acetaminophen (Acetaminophen 325 Mg Tablet) 975 mg PO Q6H PRN PRN Reason: Pain, Mild 1-3,fever,headache Last Admin: 07/31/24 18:03 Dose: 975 mg Documented By: ALLEGRA Amlodipine Besylate (Amlodipine Besylate 5 Mg Tablet) 10 mg PO DAILY [facility]; Protocol Last Admin: 08/01/24 09:16 Dose: 10 mg Documented By: CHARLES Aspirin (Aspirin 81 Mg Tab.Chew) 81 mg PO DAILY [facility] Last Admin: 08/01/24 09:16 Dose: 81 mg Documented By: CHARLES Atorvastatin Calcium (Atorvastatin Calcium 10 Mg Tablet) 10 mg PO BEDTIME [facility] Last Admin: 07/31/24 20:07 Dose: 10 mg Documented By: STACY Enoxaparin Sodium (Enoxaparin Sodium 40 Mg/0.4 Ml Syringe) 40 mg SUBCUT Q24H [facility] Last Admin: 08/01/24 09:16 Dose: 40 mg Documented By: CHARLES Ferrous Sulfate (Ferrous Sulfate 300 Mg/5 Ml Liquid) 300 mg PO DAILY [facility] Last Admin: 08/01/24 09:16 Dose: 300 mg Documented By: CHARLES Fluoxetine HCl (Fluoxetine Hcl 20 Mg Capsule) 40 mg PO DAILY [facility] Last Admin: 08/01/24 09:16 Dose: 40 mg Documented By: CHARLES Glucose (Glucose Gel 15 Gm Gel..Gram.) 15 gm PO Q15M PRN; Protocol PRN Reason: per Hypoglycemia Standing Ord. Dextrose (D10) 250 mls @ 750 mls/hr IV Q15M PRN; Protocol PRN Reason: per Hypoglycemia Standing Ord. Insulin Human Lispro (Insulin Lispro 100 Unit/Ml 3 Ml Vial) 0 unit SUBCUT QIDACHS [facility]; Protocol Last Admin: 08/01/24 11:57 Dose: 2 unit Documented By: CHARLES Levothyroxine Sodium (Levothyroxine Sodium 112 Mcg Tablet) 112 mcg PO DAILY@0600 [facility] Last Admin: 08/01/24 05:26 Dose: 112 mcg Documented By: STACY Lidocaine (Lidocaine 4 % Patch Adh..Patch) 1 patch TRANSDERMA DAILY PRN PRN Reason: Pain Last Admin: 07/11/24 23:31 Dose: 1 patch Documented By: JOSSUE Nystatin (Nystatin Powder 15 Gm Bottle) 1 appl TOPICAL BID [facility]; Protocol Last Admin: 08/01/24 09:23 Dose: Not Given Documented By: CHARLES Non-Admin Reason: rash resolved Omeprazole (Omeprazole 20 Mg Capsule.) 20 mg PO BID@0630,1630 [facility] Last Admin: 08/01/24 05:26 Dose: 20 mg Documented By: STACY Prochlorperazine Edisylate (Prochlorperazine Edisylate 10 Mg/2 Ml Vial) 5 mg IVPUSH Q8H PRN PRN Reason: Nausea and Vomiting Sodium Chloride (0.9 % Sodium Chloride Flush 3 Ml Syringe) 3 ml IVFLUSH QSHIFT [facility] Last Admin: 08/01/24 09:16 Dose: 3 ml Documented By: CHARLES Vitamin D (Cholecalciferol (Vitamin D3) 25 Mcg Tablet) 50 mcg PO DAILY [facility] Last Admin: 08/01/24 09:16 Dose: 50 mcg Documented By: CHARLES Labs 07/28/24 05:32 07/26/24 04:57 Labs: Laboratory Results - last 24 hr 07/31/24 07/31/24 08/01/24 16:24 20:30 07:14 POC Glucose 160 H 193 H 141 H 08/01/24 11:46 POC Glucose 171 H Assessment and Plan (1) Thrombocytosis: Status: Chronic (2) AMAURY (acute kidney injury): Status: Acute Assessment and Plan: 84 y/o F with a past medical history significant for major depressive disorder, HTN, HLD, CAD, IDDM, hypothyroid and GERD, presented to the ED on 07/10/2024 with visual hallucinations, nausea and severe diarrhea and has been monitored in ED overflow since. Followed by the ED providers and case management, pending guardianship. Urine on 07/19 showed acute UTI, treated with Ceftin 250 mg p.o. b.i.d. x7 days, culture was positive for aerococcus urinae and coag-negative Staphylococcus. Per nursing staff the patient has not had diarrhea and days, stool testing was never performed. The patient continues to have intermittent confusion. Altered mental status Possible sec to metabolic encphalopathy has amaury /dec po intake ,?uti leucocytosis seems improving, vital signs stable, no sepsis head CT negative UA initially positive for UTI urine culture -aerococcus urinae treated with ceftin x7 days, will repeat UA. mental status is improving seems near baseline as per social worker palliative care miss stanford. followed by case management, awaiting guardianship psych -stopped olanzapine thromocytosis -improving seen by hematology Dr bell:Given her age and chronic elevation in platelet counts with gradual worsening over the years, raises concern for myeloproliferative disorder such as essential thrombocytosis. continue asa, added iron supplements JAK2 mutation can be submitted upon discharge. need to follow up with hematology/oncology upon discharge. UTI treated with ceften BID x7 days as above repeat UA: mild pyuria/trace bacteruria -repeat urine culture < 18207 cfu , no new symptoms ,mental status is improvin, defer antibiotics for now . diarrhea seems improved amaury -due to diarrhae and low po intake improving with hydration and po intake gout L wrist, resolved - recent episode of gout on 07/21/2024, treated with colchicine x3 doses HTN - continue amlodipine HLD/CAD - continue atorvastatin and ASA 81 IDDM:fs flactauting - diabetic diet - blood sugars stable, add sliding scale as needed hold lantus. Hypothyroid - continue levothyroxine GERD - continue omeprazole VTE prophylaxis: Lovenox dispo:awaiting placement Quality Stroke Does the patient have a stroke diagnosis?: No VTE Prior VTE?: No VTE Risk Level:: Medical - moderate - high VTE Device Contraindication: Treatment Not Indicated VTE Drug Contraindication: N/A - Med Ordered
[2024-08-01 16:21] LABS: Glucose, Whole Blood 155 mg/dL (60-115)
[2024-08-01 20:20] LABS: Glucose, Whole Blood 113 mg/dL (60-115)
[2024-08-01] MEDS: Atorvastatin Calcium 10 MG TABLET PO (21:21)
[2024-08-02] VITALS (7 sets, daily range): BP systolic 132–155; BP diastolic 60–80; PULSE 101–108; RESP 16–20; TEMP 36.2–37.6; O2SAT 92–94
[2024-08-02] MEDS: Omeprazole 20 MG CAPSULE.DR PO ×2 (05:50→17:33)
[2024-08-02] MEDS: Levothyroxine Sodium 112 MCG TABLET PO (05:50)
[2024-08-02 08:06] LABS: Glucose, Whole Blood 155 mg/dL (60-115)
[2024-08-02] MEDS: Insulin Lispro 100 UNIT/ML 3 ML VIAL SUBCUT (08:33)
[2024-08-02] MEDS: Cholecalciferol (Vitamin D3) 25 MCG TABLET 50 MCG PO (08:34)
[2024-08-02] MEDS: Aspirin 81 MG TAB.CHEW PO (08:34)
[2024-08-02] MEDS: amLODIPine Besylate 5 MG TABLET 10 MG PO (08:34)
[2024-08-02] MEDS: FLUoxetine HCl 20 MG CAPSULE 40 MG PO (08:34)
[2024-08-02] MEDS: Enoxaparin Sodium 40 MG/0.4 ML SYRINGE SUBCUT (08:34)
[2024-08-02] MEDS: Ferrous Sulfate 300 MG/5 ML LIQUID PO (08:35)
[2024-08-02] MEDS: 0.9 % Sodium Chloride Flush 3 ML SYRINGE IVFLUSH ×3 (08:35→23:30)
--- NOTE | 2024-08-02 11:25 | P.PNIM_ITS ---
Subjective Subjective Date of Service: 08/02/24 Interval History: follow up Review of Systems seems mental status near baseline no new c/o. Physical Exam 2 Vital Signs: Vital Signs: Last Vital Signs Temp 97.8 F 08/02/24 08:00 Pulse 103 H 08/02/24 08:00 Resp 16 08/02/24 08:00 BP 143/75 H 08/02/24 08:34 Pulse Ox 93 08/02/24 08:00 O2 Del Method Room Air 08/02/24 08:00 O2 Flow Rate 2 07/16/24 06:03 BMI result Body Mass Index 24.2 Appearance: aox2 ,plesantly confused. cvs: rrr, [id number] . res: clear to auscultation ,no rhonchii or wheezing abd: no rebound or guarding ,nt, bs present. ext pulses present , no cyanosis . neuro:nonfocal. Objective Data Active Medications Acetaminophen (Acetaminophen 325 Mg Tablet) 975 mg PO Q6H PRN PRN Reason: Pain, Mild 1-3,fever,headache Last Admin: 07/31/24 18:03 Dose: 975 mg Documented By: ALLEGRA Amlodipine Besylate (Amlodipine Besylate 5 Mg Tablet) 10 mg PO DAILY [facility]; Protocol Last Admin: 08/02/24 08:34 Dose: 10 mg Documented By: JEANNE Aspirin (Aspirin 81 Mg Tab.Chew) 81 mg PO DAILY [facility] Last Admin: 08/02/24 08:34 Dose: 81 mg Documented By: JEANNE Atorvastatin Calcium (Atorvastatin Calcium 10 Mg Tablet) 10 mg PO BEDTIME [facility] Last Admin: 08/01/24 21:21 Dose: 10 mg Documented By: ROCHELLE Enoxaparin Sodium (Enoxaparin Sodium 40 Mg/0.4 Ml Syringe) 40 mg SUBCUT Q24H [facility] Last Admin: 08/02/24 08:34 Dose: 40 mg Documented By: JEANNE Ferrous Sulfate (Ferrous Sulfate 300 Mg/5 Ml Liquid) 300 mg PO DAILY [facility] Last Admin: 08/02/24 08:35 Dose: 300 mg Documented By: JEANNE Fluoxetine HCl (Fluoxetine Hcl 20 Mg Capsule) 40 mg PO DAILY [facility] Last Admin: 08/02/24 08:34 Dose: 40 mg Documented By: JEANNE Glucose (Glucose Gel 15 Gm Gel..Gram.) 15 gm PO Q15M PRN; Protocol PRN Reason: per Hypoglycemia Standing Ord. Dextrose (D10) 250 mls @ 750 mls/hr IV Q15M PRN; Protocol PRN Reason: per Hypoglycemia Standing Ord. Insulin Human Lispro (Insulin Lispro 100 Unit/Ml 3 Ml Vial) 0 unit SUBCUT QIDACHS [facility]; Protocol Last Admin: 08/02/24 08:33 Dose: 2 unit Documented By: JEANNE Levothyroxine Sodium (Levothyroxine Sodium 112 Mcg Tablet) 112 mcg PO DAILY@0600 [facility] Last Admin: 08/02/24 05:50 Dose: 112 mcg Documented By: ROCHELLE Lidocaine (Lidocaine 4 % Patch Adh..Patch) 1 patch TRANSDERMA DAILY PRN PRN Reason: Pain Last Admin: 07/11/24 23:31 Dose: 1 patch Documented By: JOSSUE Nystatin (Nystatin Powder 15 Gm Bottle) 1 appl TOPICAL BID [facility]; Protocol Last Admin: 08/02/24 08:59 Dose: Not Given Documented By: CHARLES Non-Admin Reason: resolved Omeprazole (Omeprazole 20 Mg Capsule.) 20 mg PO BID@0630,1630 [facility] Last Admin: 08/02/24 05:50 Dose: 20 mg Documented By: ROCHELLE Prochlorperazine Edisylate (Prochlorperazine Edisylate 10 Mg/2 Ml Vial) 5 mg IVPUSH Q8H PRN PRN Reason: Nausea and Vomiting Sodium Chloride (0.9 % Sodium Chloride Flush 3 Ml Syringe) 3 ml IVFLUSH QSHIFT [facility] Last Admin: 08/02/24 08:35 Dose: 3 ml Documented By: JEANNE Vitamin D (Cholecalciferol (Vitamin D3) 25 Mcg Tablet) 50 mcg PO DAILY [facility] Last Admin: 08/02/24 08:34 Dose: 50 mcg Documented By: JEANNE Labs 07/28/24 05:32 07/26/24 04:57 Labs: Laboratory Results - last 24 hr 08/01/24 08/01/24 08/01/24 11:46 15:58 20:02 POC Glucose 171 H 155 H 113 08/02/24 08:02 POC Glucose 155 H Assessment and Plan (1) Thrombocytosis: Status: Chronic (2) AMAURY (acute kidney injury): Status: Acute Assessment and Plan: 84 y/o F with a past medical history significant for major depressive disorder, HTN, HLD, CAD, IDDM, hypothyroid and GERD, presented to the ED on 07/10/2024 with visual hallucinations, nausea and severe diarrhea and has been monitored in ED overflow since. Followed by the ED providers and case management, pending guardianship. Urine on 07/19 showed acute UTI, treated with Ceftin 250 mg p.o. b.i.d. x7 days, culture was positive for aerococcus urinae and coag-negative Staphylococcus. Per nursing staff the patient has not had diarrhea and days, stool testing was never performed. The patient continues to have intermittent confusion. Altered mental status Possible sec to metabolic encphalopathy has amaury /dec po intake ,?uti leucocytosis seems improving, vital signs stable, no sepsis head CT negative UA initially positive for UTI urine culture -aerococcus urinae treated with ceftin x7 days, will repeat UA. mental status is improving seems near baseline as per doggy daycare activities director miss stanford. followed by case management, awaiting guardianship psych -stopped olanzapine thromocytosis -improving seen by hematology Dr bell:Given her age and chronic elevation in platelet counts with gradual worsening over the years, raises concern for myeloproliferative disorder such as essential thrombocytosis. continue asa, added iron supplements JAK2 mutation can be submitted upon discharge. need to follow up with hematology/oncology upon discharge. UTI treated with ceften BID x7 days as above repeat UA: mild pyuria/trace bacteruria -repeat urine culture < 28[address] cfu , no new symptoms ,mental status is improvin, defer antibiotics for now . diarrhea seems improved amaury -due to diarrhae and low po intake improving with hydration and po intake gout L wrist, resolved - recent episode of gout on 07/21/2024, treated with colchicine x3 doses HTN - continue amlodipine HLD/CAD - continue atorvastatin and ASA 81 IDDM:fs flactauting - diabetic diet - blood sugars stable, add sliding scale as needed hold lantus. Hypothyroid - continue levothyroxine GERD - continue omeprazole VTE prophylaxis: Lovenox dispo:awaiting placement Quality Stroke Does the patient have a stroke diagnosis?: No VTE Prior VTE?: No VTE Risk Level:: Medical - moderate - high VTE Device Contraindication: Treatment Not Indicated VTE Drug Contraindication: N/A - Med Ordered
[2024-08-02 11:52] LABS: Glucose, Whole Blood 130 mg/dL (60-115)
--- NOTE | 2024-08-02 13:21 | MHC.CM.PN ---
Patient continues to await guardianship for LTC payor/placement. No court date assigned at this time. CM sent FS referral to verify type of [facility]. Per financial counselor, patient will require new [facility] for LTC. Financial Counselor has reached out to grandson in hopes of starting this application. CM will continue to follow.
[2024-08-02 16:26] LABS: Glucose, Whole Blood 137 mg/dL (60-115)
[2024-08-02] MEDS: Acetaminophen 325 MG TABLET 975 MG PO (17:33)
[2024-08-02 19:59] LABS: Glucose, Whole Blood 123 mg/dL (60-115)
[2024-08-02] MEDS: Atorvastatin Calcium 10 MG TABLET PO (20:04)
[2024-08-03] MEDS: Prochlorperazine Edisylate 10 MG/2 ML VIAL 5 MG IVPUSH (01:27)
[2024-08-03 03:16] VITALS: BP 142/74; PULSE 109; RESP 18; TEMP 37.2; O2SAT 92
[2024-08-03] MEDS: Omeprazole 20 MG CAPSULE.DR PO ×2 (05:32→16:21)
[2024-08-03] MEDS: Levothyroxine Sodium 112 MCG TABLET PO (05:32)
[2024-08-03 07:27] VITALS: BP 137/68; PULSE 101; RESP 16; TEMP 37.1; O2SAT 92
[2024-08-03 08:02] LABS: Glucose, Whole Blood 140 mg/dL (60-115)
--- NOTE | 2024-08-03 08:06 | HO.PM.IMPN ---
Subjective Subjective Date of Service: 08/03/24 Interval History: f/u on confusion and awaiting placement no new issues Physical Exam Vital Signs: Vital Signs: Last Vital Signs Temp 98.8 F 08/03/24 07:27 Pulse 101 H 08/03/24 07:27 Resp 16 08/03/24 07:27 BP 137/68 08/03/24 07:27 Pulse Ox 92 08/03/24 07:27 O2 Del Method Room Air 08/03/24 07:27 O2 Flow Rate 2 07/16/24 06:03 BMI result Body Mass Index 24.2 General: Oriented to self, place Resp: CTA bilateral CVS: S1,S2,RRR GI: +BS, NT, no distention Skin: No rash Neuro: motor grossly intact Psych: appropriate affect Objective Data Active Medications Acetaminophen (Acetaminophen 325 Mg Tablet) 975 mg PO Q6H PRN PRN Reason: Pain, Mild 1-3,fever,headache Last Admin: 08/02/24 17:33 Dose: 975 mg Documented By: CHARLES Amlodipine Besylate (Amlodipine Besylate 5 Mg Tablet) 10 mg PO DAILY [facility]; Protocol Last Admin: 08/02/24 08:34 Dose: 10 mg Documented By: JEANNE Aspirin (Aspirin 81 Mg Tab.Chew) 81 mg PO DAILY [facility] Last Admin: 08/02/24 08:34 Dose: 81 mg Documented By: JEANNE Atorvastatin Calcium (Atorvastatin Calcium 10 Mg Tablet) 10 mg PO BEDTIME [facility] Last Admin: 08/02/24 20:04 Dose: 10 mg Documented By: JUDD Enoxaparin Sodium (Enoxaparin Sodium 40 Mg/0.4 Ml Syringe) 40 mg SUBCUT Q24H [facility] Last Admin: 08/02/24 08:34 Dose: 40 mg Documented By: JEANNE Ferrous Sulfate (Ferrous Sulfate 300 Mg/5 Ml Liquid) 300 mg PO DAILY [facility] Last Admin: 08/02/24 08:35 Dose: 300 mg Documented By: JEANNE Fluoxetine HCl (Fluoxetine Hcl 20 Mg Capsule) 40 mg PO DAILY [facility] Last Admin: 08/02/24 08:34 Dose: 40 mg Documented By: JEANNE Glucose (Glucose Gel 15 Gm Gel..Gram.) 15 gm PO Q15M PRN; Protocol PRN Reason: per Hypoglycemia Standing Ord. Dextrose (D10) 250 mls @ 750 mls/hr IV Q15M PRN; Protocol PRN Reason: per Hypoglycemia Standing Ord. Insulin Human Lispro (Insulin Lispro 100 Unit/Ml 3 Ml Vial) 0 unit SUBCUT QIDACHS [facility]; Protocol Last Admin: 08/03/24 08:03 Dose: Not Given Documented By: FELIZ Non-Admin Reason: poc oor Levothyroxine Sodium (Levothyroxine Sodium 112 Mcg Tablet) 112 mcg PO DAILY@0600 [facility] Last Admin: 08/03/24 05:32 Dose: 112 mcg Documented By: JUDD Lidocaine (Lidocaine 4 % Patch Adh..Patch) 1 patch TRANSDERMA DAILY PRN PRN Reason: Pain Last Admin: 07/11/24 23:31 Dose: 1 patch Documented By: JOSSUE Nystatin (Nystatin Powder 15 Gm Bottle) 1 appl TOPICAL BID [facility]; Protocol Last Admin: 08/02/24 20:06 Dose: Not Given Documented By: JUDD Non-Admin Reason: resolved Omeprazole (Omeprazole 20 Mg Capsule.) 20 mg PO BID@0630,1630 [facility] Last Admin: 08/03/24 05:32 Dose: 20 mg Documented By: JUDD Prochlorperazine Edisylate (Prochlorperazine Edisylate 10 Mg/2 Ml Vial) 5 mg IVPUSH Q8H PRN PRN Reason: Nausea and Vomiting Last Admin: 08/03/24 01:27 Dose: 5 mg Documented By: JUDD Sodium Chloride (0.9 % Sodium Chloride Flush 3 Ml Syringe) 3 ml IVFLUSH QSHIFT [facility] Last Admin: 08/03/24 07:03 Dose: Not Given Documented By: FELIZ Non-Admin Reason: Previously Administered Vitamin D (Cholecalciferol (Vitamin D3) 25 Mcg Tablet) 50 mcg PO DAILY [facility] Last Admin: 08/02/24 08:34 Dose: 50 mcg Documented By: JEANNE Labs 08/03/24 08:56 08/03/24 08:56 Labs: Laboratory Results - last 24 hr 08/02/24 08/02/24 08/02/24 08:02 11:41 16:06 POC Glucose 155 H 130 H 137 H 01/14/25 01/15/25 19:08 07:26 POC Glucose 123 H 140 H Assessment and Plan (1) Thrombocytosis: Status: Chronic (2) AMAURY (acute kidney injury): Status: Acute Assessment and Plan: 84 y/o F with a past medical history significant for major depressive disorder, HTN, HLD, CAD, IDDM, hypothyroid and GERD, presented to the ED on 07/10/2024 with visual hallucinations, nausea and severe diarrhea and has uti, treated x 7 days,monitored in ED unril 07/19 and admitted d/t gradual decompensation. 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, hematology recommends ASA, JAK2 mutation on outpatient basis diarrhea --resolved AMAURY--related to diarrhea, repeat creatine today gout L wrist, resolved - recent episode of gout on 07/21/2024, treated with colchicine x3 doses HTN - continue amlodipine HLD/CAD - continue atorvastatin and ASA 81 IDDM, BS < 150 -holding lantus -continue SSI, diabetic Hypothyroid - continue levothyroxine GERD - continue omeprazole VTE prophylaxis: Lovenox dispo:awaiting placement Quality Stroke Does the patient have a stroke diagnosis?: No VTE Prior VTE?: No VTE Risk Level:: Medical - moderate - high VTE Device Contraindication: Treatment Not Indicated VTE Drug Contraindication: N/A - Med Ordered
[2024-08-03] MEDS: amLODIPine Besylate 5 MG TABLET 10 MG PO (08:37)
[2024-08-03] MEDS: Enoxaparin Sodium 40 MG/0.4 ML SYRINGE SUBCUT (08:37)
[2024-08-03] MEDS: FLUoxetine HCl 20 MG CAPSULE 40 MG PO (08:37)
[2024-08-03] MEDS: Cholecalciferol (Vitamin D3) 25 MCG TABLET 50 MCG PO (08:37)
[2024-08-03] MEDS: Ferrous Sulfate 300 MG/5 ML LIQUID PO (08:37)
[2024-08-03] MEDS: Aspirin 81 MG TAB.CHEW PO (08:37)
[2024-08-03 09:26] LABS: Hematocrit 38.8 % (37.0-47.0); Mean Corpuscular HGB Conc 30.9 g/dl (31.0-35.0); Mean Corpuscular Hemoglobin 22.9 pg (27.0-33.0); Mean Corpuscular Volume 73.9 fL (80.0-98.0); Mean Platelet Volume 9.8 fL (9.4-12.3); Platelet Count 617 X10*3/uL (160-400); Red Blood Count 5.25 X10*6/uL (4.20-5.50); Red Cell Distribution Width 18.1 % (11.0-16.0); White Blood Count 9.2 X10*3/uL (4.8-10.8)
[2024-08-03 09:39] LABS: Anion Gap 11 (12-20); Blood Urea Nitrogen 20 mg/dL (9-16); Calcium 8.3 mg/dL (8.4-10.2); Carbon Dioxide 21 mmol/L (22-29); Chloride 106 mmol/L (96-108); Estimated Glomerular Filt Rate 56; Glucose Random 185 mg/dL (60-115); Potassium 3.5 mmol/L (3.3-5.1); Sodium 134 mmol/L (135-145)
[2024-08-03 11:52] VITALS: BP 133/65; PULSE 98; RESP 16; TEMP 36.9; O2SAT 92
[2024-08-03 12:08] LABS: Glucose, Whole Blood 227 mg/dL (60-115)
[2024-08-03] MEDS: Insulin Lispro 100 UNIT/ML 3 ML VIAL SUBCUT ×2 (12:26→20:36)
[2024-08-03 15:26] VITALS: BP 115/56; PULSE 94; RESP 20; TEMP 37.2; O2SAT 92
[2024-08-03 16:39] LABS: Glucose, Whole Blood 74 mg/dL (60-115)
--- NOTE | 2024-08-03 17:10 | PM.PSYCN ---
History of Present Illness Date of Service: 08/03/2024 Chief Complaint: failure to thrive, nausea and vomiting Discussed with referring provider: Yes Sources of Information: patient interviewed, chart reviewed and crisis/core team assessment reviewed HPI Narrative: Interim Hx: pt seen in her room. She reports she wants to get out of here. She thinks it is her grandson who is keeping her here. She thinks it is Spring, unable to tell this consumer loan underwriter a month. She does not know how long she has been here and has forgotten that initially she came due to nausea. No signs of psychosis or delusions. discussed results of memory and cognitive assessments and concern of her inability to care for herself, to which she stated I can take care of my self! Past Psychiatric History: Inpatient: none OP: none Past trials: wellbutrin, prozac Review of Systems Review of Systems seems mental status near baseline no new c/o. Constitutional: Reports as per HPI, Reports no additional constitutional complaints, Denies chills, Denies fatigue, Denies fever(s), Denies headache(s) and Denies night sweats Eyes: Reports no additional eye complaints, Denies blurry vision, Denies change in vision, Denies diplopia, Denies eye discharge, Denies loss of vision and Denies eye pain Denies dizziness, Denies headache(s), Denies nasal congestion, Denies nasal discharge and Denies sore throat Cardiovascular: Reports no additional cardiovascular complaints, Denies chest pain, Denies rapid heart rate, Denies leg edema, Denies lightheadedness, Denies Loss of Consciousness and Denies dyspnea Respiratory: Reports no additional respiratory complaints, Denies chest congestion, Denies cough, Denies dyspnea and Denies wheezing Gastrointestinal: Reports no additional gastrointestinal complaints, Denies abdominal pain, Denies melena, Denies hematochezia, Denies change in bowel habits, Denies change in stool character, Reports diarrhea, Reports nausea and Denies vomiting Musculoskeletal: Reports no additional musculoskeletal complaints, Denies myalgias, Denies numbness and Denies tingling Skin/Breast: Denies rash Reports confusion, Denies dizziness, Denies headache(s), Denies loss of vision, Denies numbness, Reports Other visual disturbances and Denies tingling Psychiatric: Reports confusion and Reports visual hallucinations Endocrine: Reports no additional endocrine complaints and Denies fatigue Hematologic/Lymphatic: Reports no additional hematologic/lymphatic complaints, Denies easy bleeding and Denies easy bruising Allergic/Immunologic: Reports no additional allergic/immunologic complaints and Denies wheezing [facility] Medical History (Updated 07/27/24 @ 16:40 by Cassia Phan MD) CAD (coronary artery disease) Insulin dependent type 2 diabetes mellitus HLD (hyperlipidemia) HTN (hypertension) Diabetes MDD (major depressive disorder), recurrent episode, moderate Social History: Vira is 1 of 3 siblings. Her 2 siblings are . She lives alone after moving here from [place] to be near her grandchild. She was in [place] and moved here 3 or 4 years ago. She was once and for many years. She has worked in the past but is on social security now, receiving over 2000 dollars a month. She denies any previous psychiatric treatment Trauma History: None Diagnostics Vital Signs (24Hr): Vital Signs - 24 hr 08/02/24 19:04 08/03/24 03:16 08/03/24 07:27 Temperature 97.2 F 98.9 F 98.8 F Pulse Rate 104 H 109 H 101 H Respiratory Rate 20 18 16 Blood Pressure 132/65 142/74 H 137/68 Pulse Oximetry 92 92 92 Oxygen Delivery Method Room Air Room Air Room Air 08/03/24 11:52 08/03/24 15:26 Temperature 98.5 F 98.9 F Pulse Rate 98 94 Respiratory Rate 16 20 Blood Pressure 133/65 115/56 L Pulse Oximetry 92 92 Oxygen Delivery Method Room Air Room Air BMI result Body Mass Index 24.2 Labs 08/03/24 08:56 08/03/24 08:56 Labs: Laboratory Results - last 48 hr 08/01/24 08/02/24 08/02/24 20:02 08:02 11:41 WBC RBC Hgb Hct MCV MCH MCHC RDW Plt Count MPV Absolute Nucleated RBC Nucleated RBC % (auto) Sodium Potassium Chloride Carbon Dioxide Anion Gap BUN Creatinine Estim Creat Clear Calc Estimated GFR POC Glucose 113 155 H 130 H Random Glucose Calcium 08/02/24 08/02/24 08/03/24 16:06 19:08 07:26 WBC RBC Hgb Hct MCV MCH MCHC RDW Plt Count MPV Absolute Nucleated RBC Nucleated RBC % (auto) Sodium Potassium Chloride Carbon Dioxide Anion Gap BUN Creatinine Estim Creat Clear Calc Estimated GFR POC Glucose 137 H 123 H 140 H Random Glucose Calcium 08/03/24 08/03/24 08/03/24 08:56 11:51 16:12 WBC 9.2 RBC 5.25 Hgb 12.0 Hct 38.8 MCV 73.9 L MCH 22.9 L MCHC 30.9 L RDW 18.1 H Plt Count 617 H D MPV 9.8 Absolute Nucleated RBC 0.000 Nucleated RBC % (auto) 0.0 Sodium 134 L Potassium 3.5 D Chloride 106 Carbon Dioxide 21 L Anion Gap 11 L BUN 20 H Creatinine 0.95 Estim Creat Clear Calc 46.0 Estimated GFR 56 POC Glucose 227 H 74 Random Glucose 185 H Calcium 8.3 L D Imaging Radiology Impressions: ITS Impressions Head CT 07/11/24 20:09 IMPRESSION: 1. No acute intracranial abnormality. 2. Chronic small vessel ischemic disease and age-related cerebral volume loss. 3. Right temporal convexity meningioma, unchanged. Electronically signed by: Richard Torres DO 07/11/2024 09:11 PM EST RP Wrist X-Ray 07/21/24 11:18 IMPRESSION: No visible acute fracture, dislocation or subluxation seen. Mild degenerative changes first carpometacarpal joint. Electronically signed by: Ramu Shankar MD 07/21/2024 01:00 PM EST RP Mental Status Exam Mental Status Exam Narrative: Appearance: MO, wearing hospital gown, slightly disheveled, in NAD Behavior: cooperative Psychomotor: no agitation or retardation noted Speech: clear, normal rate/rhythm, hyperverbal but not pressured, spontaneous TP: loose associations TC:disorganized Mood: okay Affect: congruent SI: denies HI: denies VH/AH: none delusions: none Insight/judgment: impaired x 2. Memory/cog: alert, not oriented to place, month, situation was able to tell the year 2024. Appears back to baseline when she first came in jun 2024- which still shows significant memory/cognitive impairments. Medications Medications Current Medications Acetaminophen (Acetaminophen 325 Mg Tablet) 975 mg PO Q6H PRN PRN Reason: Pain, Mild 1-3,fever,headache Last Admin: 08/02/24 17:33 Dose: 975 mg Amlodipine Besylate (Amlodipine Besylate 5 Mg Tablet) 10 mg PO DAILY [facility]; Protocol Last Admin: 08/03/24 08:37 Dose: 10 mg Aspirin (Aspirin 81 Mg Tab.Chew) 81 mg PO DAILY [facility] Last Admin: 08/03/24 08:37 Dose: 81 mg Atorvastatin Calcium (Atorvastatin Calcium 10 Mg Tablet) 10 mg PO BEDTIME [facility] Last Admin: 08/02/24 20:04 Dose: 10 mg Enoxaparin Sodium (Enoxaparin Sodium 40 Mg/0.4 Ml Syringe) 40 mg SUBCUT Q24H [facility] Last Admin: 08/03/24 08:37 Dose: 40 mg Ferrous Sulfate (Ferrous Sulfate 300 Mg/5 Ml Liquid) 300 mg PO DAILY [facility] Last Admin: 08/03/24 08:37 Dose: 300 mg Fluoxetine HCl (Fluoxetine Hcl 20 Mg Capsule) 40 mg PO DAILY [facility] Last Admin: 08/03/24 08:37 Dose: 40 mg Glucose (Glucose Gel 15 Gm Gel..Gram.) 15 gm PO Q15M PRN; Protocol PRN Reason: per Hypoglycemia Standing Ord. Dextrose (D10) 250 mls @ 750 mls/hr IV Q15M PRN; Protocol PRN Reason: per Hypoglycemia Standing Ord. Insulin Human Lispro (Insulin Lispro 100 Unit/Ml 3 Ml Vial) 0 unit SUBCUT QIDACHS [facility]; Protocol Last Admin: 08/03/24 16:13 Dose: Not Given Levothyroxine Sodium (Levothyroxine Sodium 112 Mcg Tablet) 112 mcg PO DAILY@0600 [facility] Last Admin: 08/03/24 05:32 Dose: 112 mcg Lidocaine (Lidocaine 4 % Patch Adh..Patch) 1 patch TRANSDERMA DAILY PRN PRN Reason: Pain Last Admin: 07/11/24 23:31 Dose: 1 patch Nystatin (Nystatin Powder 15 Gm Bottle) 1 appl TOPICAL BID [facility]; Protocol Last Admin: 08/03/24 08:38 Dose: Not Given Omeprazole (Omeprazole 20 Mg Capsule.Dr) 20 mg PO BID@0630,1630 [facility] Last Admin: 08/03/24 16:21 Dose: 20 mg Prochlorperazine Edisylate (Prochlorperazine Edisylate 10 Mg/2 Ml Vial) 5 mg IVPUSH Q8H PRN PRN Reason: Nausea and Vomiting Last Admin: 08/03/24 01:27 Dose: 5 mg Sodium Chloride (0.9 % Sodium Chloride Flush 3 Ml Syringe) 3 ml IVFLUSH QSHIFT [facility] Last Admin: 08/03/24 12:25 Dose: Not Given Vitamin D (Cholecalciferol (Vitamin D3) 25 Mcg Tablet) 50 mcg PO DAILY [facility] Last Admin: 08/03/24 08:37 Dose: 50 mcg Allergies Allergies Allergy/AdvReac Type Severity Reaction Status Date / Time bee pollen [BEE STINGS] Allergy Unknown UNKNOWN Verified 07/10/24 09:11 morphine [MORPHINE] Allergy Unknown UNKNOWN Verified 07/10/24 09:11 Penicillins [PENICILLINS] Allergy Unknown UNKNOWN Verified 07/10/24 09:11 Assessment & Plan Assessment & Plan (1) Major neurocognitive disorder: Status: Acute Code(s): F03.90 - Unspecified dementia, unspecified severity, without behavioral disturbance, psychotic disturbance, mood disturbance, and anxiety Plan Ms. Jules is a 84 year-old woman with hx of dementia. 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 Her cognitive and memory has significantly declined and there are concern about her ability to care for herself. Although she seems better than last time this consumer loan underwriter saw her in the ED in 07/25/2024. She appears back to baseline and current cognitive and memory impairment are reflection of dementia. She continues to present not oriented to situation, nor month (thinking is Spring). She is not able to retain information that has been given while in the ED nd during hospital stay. Continue to recommend 24 supervision. Total time managing care of this patient today ____ minutes.
[2024-08-03 19:17] VITALS: BP 115/55; PULSE 100; RESP 20; TEMP 36.7; O2SAT 92
[2024-08-03] MEDS: Atorvastatin Calcium 10 MG TABLET PO (20:18)
[2024-08-03 20:41] LABS: Glucose, Whole Blood 178 mg/dL (60-115)
[2024-08-03] MEDS: 0.9 % Sodium Chloride Flush 3 ML SYRINGE IVFLUSH (23:44)
[2024-08-03 23:46] VITALS: BP 113/54; PULSE 90; RESP 18; TEMP 36.7; O2SAT 93
[2024-08-04 04:00] VITALS: BP 118/56; PULSE 99; RESP 16; TEMP 36.8; O2SAT 92
[2024-08-04] MEDS: Levothyroxine Sodium 112 MCG TABLET PO (05:30)
[2024-08-04] MEDS: Omeprazole 20 MG CAPSULE.DR PO ×2 (05:30→17:16)
[2024-08-04 07:19] VITALS: BP 131/70; PULSE 94; RESP 16; TEMP 37; O2SAT 91
[2024-08-04 07:44] LABS: Glucose, Whole Blood 147 mg/dL (60-115)
[2024-08-04] MEDS: amLODIPine Besylate 5 MG TABLET 10 MG PO (08:10)
[2024-08-04] MEDS: Aspirin 81 MG TAB.CHEW PO (08:10)
[2024-08-04] MEDS: 0.9 % Sodium Chloride Flush 3 ML SYRINGE IVFLUSH ×3 (08:10→20:21)
[2024-08-04] MEDS: Enoxaparin Sodium 40 MG/0.4 ML SYRINGE SUBCUT (08:10)
[2024-08-04] MEDS: Cholecalciferol (Vitamin D3) 25 MCG TABLET 50 MCG PO (08:10)
[2024-08-04] MEDS: FLUoxetine HCl 20 MG CAPSULE 40 MG PO (08:10)
[2024-08-04] MEDS: Ferrous Sulfate 300 MG/5 ML LIQUID PO (08:10)
[2024-08-04 09:19] LABS: Glucose, Whole Blood 186 mg/dL (60-115)
--- NOTE | 2024-08-04 11:12 | HO.PM.IMPN ---
Subjective Subjective Date of Service: 08/04/24 Interval History: f/u on confusion and awaiting placement no new issues Physical Exam Vital Signs: Vital Signs: Last Vital Signs Temp 98.6 F 08/04/24 07:19 Pulse 94 08/04/24 07:19 Resp 16 08/04/24 07:19 BP 131/70 08/04/24 07:19 Pulse Ox 91 L 08/04/24 07:19 O2 Del Method Room Air 08/04/24 07:19 O2 Flow Rate 2 07/16/24 06:03 BMI result Body Mass Index 24.2 General: Oriented to self, place Resp: CTA bilateral CVS: S1,S2,RRR GI: +BS, NT, no distention Skin: No rash Neuro: motor grossly intact Psych: appropriate affect Objective Data Active Medications Acetaminophen (Acetaminophen 325 Mg Tablet) 975 mg PO Q6H PRN PRN Reason: Pain, Mild 1-3,fever,headache Last Admin: 08/02/24 17:33 Dose: 975 mg Documented By: CHARLES Amlodipine Besylate (Amlodipine Besylate 5 Mg Tablet) 10 mg PO DAILY [facility]; Protocol Last Admin: 08/04/24 08:10 Dose: 10 mg Documented By: LATOSHA Aspirin (Aspirin 81 Mg Tab.Chew) 81 mg PO DAILY [facility] Last Admin: 08/04/24 08:10 Dose: 81 mg Documented By: LATOSHA Atorvastatin Calcium (Atorvastatin Calcium 10 Mg Tablet) 10 mg PO BEDTIME [facility] Last Admin: 08/03/24 20:18 Dose: 10 mg Documented By: BARNEY Enoxaparin Sodium (Enoxaparin Sodium 40 Mg/0.4 Ml Syringe) 40 mg SUBCUT Q24H [facility] Last Admin: 08/04/24 08:10 Dose: 40 mg Documented By: LATOSHA Ferrous Sulfate (Ferrous Sulfate 300 Mg/5 Ml Liquid) 300 mg PO DAILY [facility] Last Admin: 08/04/24 08:10 Dose: 300 mg Documented By: LATOSHA Fluoxetine HCl (Fluoxetine Hcl 20 Mg Capsule) 40 mg PO DAILY [facility] Last Admin: 08/04/24 08:10 Dose: 40 mg Documented By: LATOSHA Glucose (Glucose Gel 15 Gm Gel..Gram.) 15 gm PO Q15M PRN; Protocol PRN Reason: per Hypoglycemia Standing Ord. Dextrose (D10) 250 mls @ 750 mls/hr IV Q15M PRN; Protocol PRN Reason: per Hypoglycemia Standing Ord. Insulin Human Lispro (Insulin Lispro 100 Unit/Ml 3 Ml Vial) 0 unit SUBCUT QIDACHS [facility]; Protocol Last Admin: 08/04/24 07:45 Dose: Not Given Documented By: LATOSHA Non-Admin Reason: No Insulin Coverage Levothyroxine Sodium (Levothyroxine Sodium 112 Mcg Tablet) 112 mcg PO DAILY@0600 [facility] Last Admin: 08/04/24 05:30 Dose: 112 mcg Documented By: BARNEY Lidocaine (Lidocaine 4 % Patch Adh..Patch) 1 patch TRANSDERMA DAILY PRN PRN Reason: Pain Last Admin: 07/11/24 23:31 Dose: 1 patch Documented By: JOSSUE Nystatin (Nystatin Powder 15 Gm Bottle) 1 appl TOPICAL BID [facility]; Protocol Last Admin: 08/04/24 09:27 Dose: Not Given Documented By: LATOSHA Non-Admin Reason: not needed Omeprazole (Omeprazole 20 Mg Yaa.) 20 mg PO BID@0630,1630 [facility] Last Admin: 08/04/24 05:30 Dose: 20 mg Documented By: BARNEY Prochlorperazine Edisylate (Prochlorperazine Edisylate 10 Mg/2 Ml Vial) 5 mg IVPUSH Q8H PRN PRN Reason: Nausea and Vomiting Last Admin: 08/03/24 01:27 Dose: 5 mg Documented By: JUDD Sodium Chloride (0.9 % Sodium Chloride Flush 3 Ml Syringe) [address] [facility] Last Admin: 08/04/24 08:10 Dose: 3 ml Documented By: LATOSHA Vitamin D (Cholecalciferol (Vitamin D3) 25 Mcg Tablet) 50 mcg PO DAILY [facility] Last Admin: 08/04/24 08:10 Dose: 50 mcg Documented By: LATOSHA Labs 08/03/24 08:56 08/03/24 08:56 Labs: Laboratory Results - last 24 hr 08/01/24 08/03/24 08/03/24 11:32 11:51 16:12 POC Glucose 186 H 227 H 74 08/03/24 08/04/24 20:24 07:17 POC Glucose 178 H 147 H Assessment and Plan (1) Thrombocytosis: Status: Chronic (2) AMAURY (acute kidney injury): Status: Acute Assessment and Plan: 84 y/o F with a past medical history significant for major depressive disorder, HTN, HLD, CAD, IDDM, hypothyroid and GERD, presented to the ED on 07/10/2024 with visual hallucinations, nausea and severe diarrhea and has uti, treated x 7 days,monitored in ED unril 07/19 and admitted d/t gradual decompensation. 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, hematology recommends ASA, JAK2 mutation on outpatient basis diarrhea --resolved AMAURY--related to diarrhea, repeat creatine today gout L wrist, resolved - recent episode of gout on 07/21/2024, treated with colchicine x3 doses HTN - continue amlodipine HLD/CAD - continue atorvastatin and ASA 81 IDDM, BS < 150 -holding lantus -continue SSI, diabetic Hypothyroid - continue levothyroxine GERD - continue omeprazole VTE prophylaxis: Lovenox dispo:awaiting placement check routine labs cbc, bmp Quality Stroke Does the patient have a stroke diagnosis?: No VTE Prior VTE?: No VTE Risk Level:: Medical - moderate - high VTE Device Contraindication: Treatment Not Indicated VTE Drug Contraindication: N/A - Med Ordered
[2024-08-04 11:16] VITALS: BP 124/62; PULSE 91; RESP 16; TEMP 36.9; O2SAT 99
[2024-08-04 11:28] LABS: Glucose, Whole Blood 245 mg/dL (60-115)
[2024-08-04] MEDS: Insulin Lispro 100 UNIT/ML 3 ML VIAL SUBCUT (11:55)
[2024-08-04 12:17] LABS: Hematocrit 37.2 % (37.0-47.0); Hemoglobin 11.5 g/dl (12.0-16.0); Mean Corpuscular HGB Conc 30.9 g/dl (31.0-35.0); Mean Corpuscular Hemoglobin 22.9 pg (27.0-33.0); Mean Platelet Volume 9.9 fL (9.4-12.3); Platelet Count 548 X10*3/uL (160-400); Red Blood Count 5.03 X10*6/uL (4.20-5.50); White Blood Count 7.4 X10*3/uL (4.8-10.8)
[2024-08-04 12:32] LABS: Anion Gap 11 (12-20); Blood Urea Nitrogen 27 mg/dL (9-16); Calcium 8.6 mg/dL (8.4-10.2); Carbon Dioxide 21 mmol/L (22-29); Chloride 103 mmol/L (96-108); Creatinine Clr Calc Pharmacy 38.7; Estimated Glomerular Filt Rate 46; Glucose Random 214 mg/dL (60-115); Potassium 3.8 mmol/L (3.3-5.1); Sodium 131 mmol/L (135-145)
[2024-08-04 15:21] VITALS: BP 119/68; PULSE 95; RESP 20; TEMP 37.1; O2SAT 92
[2024-08-04 16:26] LABS: Glucose, Whole Blood 118 mg/dL (60-115)
[2024-08-04 19:05] VITALS: BP 139/72; PULSE 102; RESP 20; TEMP 37.1; O2SAT 92
[2024-08-04] MEDS: Atorvastatin Calcium 10 MG TABLET PO (20:19)
[2024-08-04 20:31] LABS: Glucose, Whole Blood 148 mg/dL (60-115)
[2024-08-04 23:35] VITALS: BP 112/53; PULSE 94; RESP 18; TEMP 36.8; O2SAT 93
[2024-08-05] VITALS (7 sets, daily range): BP systolic 115–146; BP diastolic 58–72; PULSE 90–95; RESP 16–20; TEMP 36.1–36.8; O2SAT 91–94
[2024-08-05] MEDS: Omeprazole 20 MG CAPSULE.DR PO ×2 (05:07→16:41)
[2024-08-05] MEDS: Levothyroxine Sodium 112 MCG TABLET PO (05:07)
[2024-08-05] MEDS: Insulin Lispro 100 UNIT/ML 3 ML VIAL SUBCUT ×2 (07:52→20:47)
[2024-08-05] MEDS: Cholecalciferol (Vitamin D3) 25 MCG TABLET 50 MCG PO (07:53)
[2024-08-05] MEDS: 0.9 % Sodium Chloride Flush 3 ML SYRINGE IVFLUSH ×2 (07:53→17:05)
[2024-08-05] MEDS: Aspirin 81 MG TAB.CHEW PO (07:53)
[2024-08-05] MEDS: FLUoxetine HCl 20 MG CAPSULE 40 MG PO (07:53)
[2024-08-05] MEDS: amLODIPine Besylate 5 MG TABLET 10 MG PO (07:53)
[2024-08-05] MEDS: Ferrous Sulfate 300 MG/5 ML LIQUID PO (07:54)
[2024-08-05] MEDS: Enoxaparin Sodium 40 MG/0.4 ML SYRINGE SUBCUT (07:54)
[2024-08-05 08:00] LABS: Glucose, Whole Blood 159 mg/dL (60-115)
--- NOTE | 2024-08-05 08:55 | HO.PM.IMPN ---
Subjective Subjective Date of Service: 08/05/24 Interval History: f/u on confusion and awaiting placement no new issues Physical Exam Vital Signs: Vital Signs: Last Vital Signs Temp 97.0 F 08/05/24 07:54 Pulse 90 08/05/24 07:54 Resp 20 08/05/24 07:54 BP 138/70 08/05/24 07:54 Pulse Ox 92 08/05/24 07:54 O2 Del Method Room Air 08/05/24 07:54 O2 Flow Rate 2 07/16/24 06:03 BMI result Body Mass Index 24.2 General: Oriented to self, place Resp: CTA bilateral CVS: S1,S2,RRR GI: +BS, NT, no distention Skin: No rash Neuro: motor grossly intact Psych: appropriate affect Objective Data Active Medications Acetaminophen (Acetaminophen 325 Mg Tablet) 975 mg PO Q6H PRN PRN Reason: Pain, Mild 1-3,fever,headache Last Admin: 08/02/24 17:33 Dose: 975 mg Documented By: CHARLES Amlodipine Besylate (Amlodipine Besylate 5 Mg Tablet) 10 mg PO DAILY [facility]; Protocol Last Admin: 08/05/24 07:53 Dose: 10 mg Documented By: JEANNE Aspirin (Aspirin 81 Mg Tab.Chew) 81 mg PO DAILY [facility] Last Admin: 08/05/24 07:53 Dose: 81 mg Documented By: JEANNE Atorvastatin Calcium (Atorvastatin Calcium 10 Mg Tablet) 10 mg PO BEDTIME [facility] Last Admin: 08/04/24 20:19 Dose: 10 mg Documented By: SHWETA Enoxaparin Sodium (Enoxaparin Sodium 40 Mg/0.4 Ml Syringe) 40 mg SUBCUT Q24H [facility] Last Admin: 08/05/24 07:54 Dose: 40 mg Documented By: JEANNE Ferrous Sulfate (Ferrous Sulfate 300 Mg/5 Ml Liquid) 300 mg PO DAILY [facility] Last Admin: 08/05/24 07:54 Dose: 300 mg Documented By: JEANNE Fluoxetine HCl (Fluoxetine Hcl 20 Mg Capsule) 40 mg PO DAILY [facility] Last Admin: 08/05/24 07:53 Dose: 40 mg Documented By: JEANNE Glucose (Glucose Gel 15 Gm Gel..Gram.) 15 gm PO Q15M PRN; Protocol PRN Reason: per Hypoglycemia Standing Ord. Dextrose (D10) 250 mls @ 750 mls/hr IV Q15M PRN; Protocol PRN Reason: per Hypoglycemia Standing Ord. Insulin Human Lispro (Insulin Lispro 100 Unit/Ml 3 Ml Vial) 0 unit SUBCUT QIDACHS [facility]; Protocol Last Admin: 08/05/24 07:52 Dose: 2 unit Documented By: JEANNE Levothyroxine Sodium (Levothyroxine Sodium 112 Mcg Tablet) 112 mcg PO DAILY@0600 [facility] Last Admin: 08/05/24 05:07 Dose: 112 mcg Documented By: JEANNE Lidocaine (Lidocaine 4 % Patch Adh..Patch) 1 patch TRANSDERMA DAILY PRN PRN Reason: Pain Last Admin: 07/11/24 23:31 Dose: 1 patch Documented By: LAFLAMBob Nystatin (Nystatin Powder 15 Gm Bottle) 1 appl TOPICAL BID [facility]; Protocol Last Admin: 08/05/24 07:59 Dose: Not Given Documented By: JEANNE Non-Admin Reason: See Note Omeprazole (Omeprazole 20 Mg Yaa.) 20 mg PO BID@0630,1630 [facility] Last Admin: 08/05/24 05:07 Dose: 20 mg Documented By: JEANNE Comments: Pt request early as she is awake and would like to go back to sleep. Prochlorperazine Edisylate (Prochlorperazine Edisylate 10 Mg/2 Ml Vial) 5 mg IVPUSH Q8H PRN PRN Reason: Nausea and Vomiting Last Admin: 08/03/24 01:27 Dose: 5 mg Documented By: JUDD Sodium Chloride (0.9 % Sodium Chloride Flush 3 Ml Syringe) 3 ml IVFLUSH QSHIFT [facility] Last Admin: 08/05/24 07:53 Dose: 3 ml Documented By: JEANNE Vitamin D (Cholecalciferol (Vitamin D3) 25 Mcg Tablet) 50 mcg PO DAILY [facility] Last Admin: 08/05/24 07:53 Dose: 50 mcg Documented By: JEANNE Labs 08/04/24 11:45 08/04/24 11:45 Labs: Laboratory Results - last 24 hr 08/01/24 08/04/24 08/04/24 11:32 11:15 11:45 MCV 74.0 L MCH 22.9 L MCHC 30.9 L RDW 17.0 H Plt Count 548 H MPV 9.9 Absolute Nucleated RBC 0.000 Nucleated RBC % (auto) 0.0 Anion Gap 11 L Estim Creat Clear Calc 38.7 Estimated GFR 46 POC Glucose 186 H 245 H Random Glucose 214 H Calcium 8.6 08/04/24 08/04/24 08/05/24 16:19 20:23 07:52 MCV MCH MCHC RDW Plt Count MPV Absolute Nucleated RBC Nucleated RBC % (auto) Anion Gap Estim Creat Clear Calc Estimated GFR POC Glucose 118 H 148 H 159 H Random Glucose Calcium Assessment and Plan (1) Thrombocytosis: Status: Chronic (2) AMAURY (acute kidney injury): Status: Acute Assessment and Plan: 84 y/o F with a past medical history significant for major depressive disorder, HTN, HLD, CAD, IDDM, hypothyroid and GERD, presented to the ED on 07/10/2024 with visual hallucinations, nausea and severe diarrhea and has uti, treated x 7 days,monitored in ED unril 07/19 and admitted d/t gradual decompensation. 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, hematology recommends ASA, JAK2 mutation on outpatient basis diarrhea --resolved AMAURY--related to diarrhea, repeat creatine today gout L wrist, resolved - recent episode of gout on 07/21/2024, treated with colchicine x3 doses HTN - continue amlodipine HLD/CAD - continue atorvastatin and ASA 81 IDDM, BS < 150 -holding lantus -continue SSI, diabetic Hypothyroid - continue levothyroxine GERD - continue omeprazole VTE prophylaxis: Lovenox dispo:awaiting placement check routine labs cbc, bmp on 08/04 ok, Quality Stroke Does the patient have a stroke diagnosis?: No VTE Prior VTE?: No VTE Risk Level:: Medical - moderate - high VTE Device Contraindication: Treatment Not Indicated VTE Drug Contraindication: N/A - Med Ordered
[2024-08-05 11:28] LABS: Glucose, Whole Blood 146 mg/dL (60-115)
--- NOTE | 2024-08-05 15:16 | MHC.CM.PN ---
PATIENT CONTINUES TO AWAIT COURT DATE FOR GUARDIANSHIP. 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 PATIENT IS CURRENTLY SPENDING DOWN BUT STILL HAS PRIVATE FUNDS- [facility] CM WILL CALL BACK WITH AMOUNT IN ACCT.
[2024-08-05 16:31] LABS: Glucose, Whole Blood 127 mg/dL (60-115)
[2024-08-05] MEDS: Atorvastatin Calcium 10 MG TABLET PO (20:16)
[2024-08-05 20:41] LABS: Glucose, Whole Blood 203 mg/dL (60-115)
[2024-08-06 03:18] VITALS: BP 132/71; PULSE 98; RESP 17; TEMP 36.6; O2SAT 95
[2024-08-06] MEDS: Levothyroxine Sodium 112 MCG TABLET PO (05:47)
[2024-08-06] MEDS: Omeprazole 20 MG CAPSULE.DR PO ×2 (05:47→16:54)
[2024-08-06 08:00] VITALS: BP 121/65; PULSE 94; RESP 16; TEMP 36.5; O2SAT 93
[2024-08-06 08:29] LABS: Glucose, Whole Blood 144 mg/dL (60-115)
[2024-08-06] MEDS: FLUoxetine HCl 20 MG CAPSULE 40 MG PO (09:03)
[2024-08-06] MEDS: amLODIPine Besylate 5 MG TABLET 10 MG PO (09:04)
[2024-08-06] MEDS: Aspirin 81 MG TAB.CHEW PO (09:04)
[2024-08-06] MEDS: Cholecalciferol (Vitamin D3) 25 MCG TABLET 50 MCG PO (09:04)
[2024-08-06] MEDS: Ferrous Sulfate 300 MG/5 ML LIQUID PO (09:05)
[2024-08-06] MEDS: Enoxaparin Sodium 40 MG/0.4 ML SYRINGE SUBCUT (09:13)
--- NOTE | 2024-08-06 10:41 | P.PNIM_ITS ---
Subjective Subjective Date of Service: 08/06/24 Interval History: f/u on confusion and awaiting placement no new issues Physical Exam 2 Vital Signs: Vital Signs: Last Vital Signs Temp 97.7 F 08/06/24 08:00 Pulse 94 08/06/24 08:00 Resp 16 08/06/24 08:00 BP 121/65 08/06/24 08:00 Pulse Ox 93 08/06/24 08:00 O2 Del Method Room Air 08/06/24 08:00 O2 Flow Rate 2 07/16/24 06:03 BMI result Body Mass Index 24.2 General: Oriented to self, place Resp: CTA bilateral CVS: S1,S2,RRR GI: +BS, NT, no distention Skin: No rash Neuro: motor grossly intact Psych: appropriate affect Objective Data Active Medications Acetaminophen (Acetaminophen 325 Mg Tablet) 975 mg PO Q6H PRN PRN Reason: Pain, Mild 1-3,fever,headache Last Admin: 08/02/24 17:33 Dose: 975 mg Documented By: CHARLES Amlodipine Besylate (Amlodipine Besylate 5 Mg Tablet) 10 mg PO DAILY [facility]; Protocol Last Admin: 08/06/24 09:04 Dose: 10 mg Documented By: BRINA Aspirin (Aspirin 81 Mg Tab.Chew) 81 mg PO DAILY [facility] Last Admin: 08/06/24 09:04 Dose: 81 mg Documented By: BRINA Atorvastatin Calcium (Atorvastatin Calcium 10 Mg Tablet) 10 mg PO BEDTIME [facility] Last Admin: 08/05/24 20:16 Dose: 10 mg Documented By: NAHED Enoxaparin Sodium (Enoxaparin Sodium 40 Mg/0.4 Ml Syringe) 40 mg SUBCUT Q24H [facility] Last Admin: 08/06/24 09:13 Dose: 40 mg Documented By: BRINA Ferrous Sulfate (Ferrous Sulfate 300 Mg/5 Ml Liquid) 300 mg PO DAILY [facility] Last Admin: 08/06/24 09:05 Dose: 300 mg Documented By: BRINA Fluoxetine HCl (Fluoxetine Hcl 20 Mg Capsule) 40 mg PO DAILY [facility] Last Admin: 08/06/24 09:03 Dose: 40 mg Documented By: BRINA Glucose (Glucose Gel 15 Gm Gel..Gram.) 15 gm PO Q15M PRN; Protocol PRN Reason: per Hypoglycemia Standing Ord. Dextrose (D10) 250 mls @ 750 mls/hr IV Q15M PRN; Protocol PRN Reason: per Hypoglycemia Standing Ord. Insulin Human Lispro (Insulin Lispro 100 Unit/Ml 3 Ml Vial) 0 unit SUBCUT QIDACHS [facility]; Protocol Last Admin: 08/06/24 08:56 Dose: Not Given Documented By: BRINA Non-Admin Reason: No Insulin Coverage Levothyroxine Sodium (Levothyroxine Sodium 112 Mcg Tablet) 112 mcg PO DAILY@0600 [facility] Last Admin: 08/06/24 05:47 Dose: 112 mcg Documented By: NAHED Lidocaine (Lidocaine 4 % Patch Adh..Patch) 1 patch TRANSDERMA DAILY PRN PRN Reason: Pain Last Admin: 07/11/24 23:31 Dose: 1 patch Documented By: JOSSUE Nystatin (Nystatin Powder 15 Gm Bottle) 1 appl TOPICAL BID [facility]; Protocol Last Admin: 08/06/24 09:44 Dose: Not Given Documented By: BIRNA Non-Admin Reason: Resolved Omeprazole (Omeprazole 20 Mg Capsule.) 20 mg PO BID@0630,1630 [facility] Last Admin: 08/06/24 05:47 Dose: 20 mg Documented By: NAHED Prochlorperazine Edisylate (Prochlorperazine Edisylate 10 Mg/2 Ml Vial) 5 mg IVPUSH Q8H PRN PRN Reason: Nausea and Vomiting Last Admin: 08/03/24 01:27 Dose: 5 mg Documented By: JUDD Sodium Chloride (0.9 % Sodium Chloride Flush 3 Ml Syringe) 3 ml IVFLUSH QSHIFT [facility] Last Admin: 08/06/24 08:56 Dose: Not Given Documented By: BRINA Non-Admin Reason: No Access Vitamin D (Cholecalciferol (Vitamin D3) 25 Mcg Tablet) 50 mcg PO DAILY [facility] Last Admin: 08/06/24 09:04 Dose: 50 mcg Documented By: BRINA Labs 08/04/24 11:45 08/04/24 11:45 Labs: Laboratory Results - last 24 hr 08/05/24 08/05/24 08/05/24 11:22 16:23 20:32 POC Glucose 146 H 127 H 203 H 08/06/24 08:25 POC Glucose 144 H Assessment and Plan (1) Thrombocytosis: Status: Chronic (2) AMAURY (acute kidney injury): Status: Acute Assessment and Plan: 84 y/o F with a past medical history significant for major depressive disorder, HTN, HLD, CAD, IDDM, hypothyroid and GERD, presented to the ED on 07/10/2024 with visual hallucinations, nausea and severe diarrhea and has uti, treated x 7 days,monitored in ED unril 07/19 and admitted d/t gradual decompensation. 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, hematology recommends ASA, JAK2 mutation on outpatient basis diarrhea --resolved AMAURY--related to diarrhea, repeat creatine today gout L wrist, resolved - recent episode of gout on 07/21/2024, treated with colchicine x3 doses HTN - continue amlodipine HLD/CAD - continue atorvastatin and ASA 81 IDDM, BS < 150 -holding lantus -continue SSI, diabetic Hypothyroid - continue levothyroxine GERD - continue omeprazole VTE prophylaxis: Lovenox dispo:awaiting placement check routine labs cbc, bmp on 08/04 ok, Quality Stroke Does the patient have a stroke diagnosis?: No VTE Prior VTE?: No VTE Risk Level:: Medical - moderate - high VTE Device Contraindication: Treatment Not Indicated VTE Drug Contraindication: N/A - Med Ordered
[2024-08-06 11:27] VITALS: BP 122/60; PULSE 94; RESP 16; TEMP 36.5; O2SAT 92
[2024-08-06] MEDS: Insulin Lispro 100 UNIT/ML 3 ML VIAL SUBCUT ×2 (11:49→16:54)
[2024-08-06 11:53] LABS: Glucose, Whole Blood 201 mg/dL (60-115)
[2024-08-06 16:00] VITALS: BP 137/70; PULSE 84; RESP 16; TEMP 36.6; O2SAT 93
[2024-08-06 16:35] LABS: Glucose, Whole Blood 152 mg/dL (60-115)
[2024-08-06 19:11] VITALS: BP 138/60; PULSE 85; RESP 20; TEMP 36.4; O2SAT 93
[2024-08-06 20:05] LABS: Glucose, Whole Blood 125 mg/dL (60-115)
[2024-08-06] MEDS: Atorvastatin Calcium 10 MG TABLET PO (20:08)
[2024-08-06] MEDS: Acetaminophen 325 MG TABLET 975 MG PO (20:18)
[2024-08-06 23:21] VITALS: BP 119/59; PULSE 66; RESP 17; TEMP 36.6; O2SAT 94
[2024-08-07 03:21] VITALS: BP 132/68; PULSE 75; RESP 17; TEMP 36.7; O2SAT 96
[2024-08-07] MEDS: Omeprazole 20 MG CAPSULE.DR PO ×2 (05:30→17:05)
[2024-08-07] MEDS: Levothyroxine Sodium 112 MCG TABLET PO (05:30)
[2024-08-07 07:32] VITALS: BP 117/59; PULSE 84; RESP 18; TEMP 36.2; O2SAT 94
[2024-08-07 07:50] LABS: Glucose, Whole Blood 157 mg/dL (60-115)
[2024-08-07] MEDS: amLODIPine Besylate 5 MG TABLET 10 MG PO (08:18)
[2024-08-07] MEDS: FLUoxetine HCl 20 MG CAPSULE 40 MG PO (08:18)
[2024-08-07] MEDS: Ferrous Sulfate 300 MG/5 ML LIQUID PO (08:18)
[2024-08-07] MEDS: Aspirin 81 MG TAB.CHEW PO (08:18)
[2024-08-07] MEDS: Enoxaparin Sodium 40 MG/0.4 ML SYRINGE SUBCUT (08:18)
[2024-08-07] MEDS: Insulin Lispro 100 UNIT/ML 3 ML VIAL SUBCUT ×3 (08:18→20:42)
[2024-08-07] MEDS: Cholecalciferol (Vitamin D3) 25 MCG TABLET 50 MCG PO (08:18)
--- NOTE | 2024-08-07 09:40 | P.PNIM_ITS ---
Subjective Subjective Date of Service: 08/07/24 Interval History: f/u on confusion and awaiting placement no new issues Physical Exam 2 Vital Signs: Vital Signs: Last Vital Signs Temp 97.1 F 08/07/24 07:32 Pulse 84 08/07/24 07:32 Resp 18 08/07/24 07:32 BP 117/59 L 08/07/24 07:32 Pulse Ox 94 08/07/24 07:32 O2 Del Method Room Air 08/07/24 07:32 O2 Flow Rate 2 07/16/24 06:03 BMI result Body Mass Index 24.2 General: Oriented to self, place Resp: CTA bilateral CVS: S1,S2,RRR GI: +BS, NT, no distention Skin: No rash Neuro: motor grossly intact Psych: appropriate affect Objective Data Active Medications Acetaminophen (Acetaminophen 325 Mg Tablet) 975 mg PO Q6H PRN PRN Reason: Pain, Mild 1-3,fever,headache Last Admin: 08/06/24 20:18 Dose: 975 mg Documented By: NAHED Amlodipine Besylate (Amlodipine Besylate 5 Mg Tablet) 10 mg PO DAILY [facility]; Protocol Last Admin: 08/07/24 08:18 Dose: 10 mg Documented By: BRINA Aspirin (Aspirin 81 Mg Tab.Chew) 81 mg PO DAILY [facility] Last Admin: 08/07/24 08:18 Dose: 81 mg Documented By: BRINA Atorvastatin Calcium (Atorvastatin Calcium 10 Mg Tablet) 10 mg PO BEDTIME [facility] Last Admin: 08/06/24 20:08 Dose: 10 mg Documented By: NAHED Enoxaparin Sodium (Enoxaparin Sodium 40 Mg/0.4 Ml Syringe) 40 mg SUBCUT Q24H [facility] Last Admin: 08/07/24 08:18 Dose: 40 mg Documented By: BRINA Ferrous Sulfate (Ferrous Sulfate 300 Mg/5 Ml Liquid) 300 mg PO DAILY [facility] Last Admin: 08/07/24 08:18 Dose: 300 mg Documented By: BRINA Fluoxetine HCl (Fluoxetine Hcl 20 Mg Capsule) 40 mg PO DAILY [facility] Last Admin: 08/07/24 08:18 Dose: 40 mg Documented By: BRINA Glucose (Glucose Gel 15 Gm Gel..Gram.) 15 gm PO Q15M PRN; Protocol PRN Reason: per Hypoglycemia Standing Ord. Dextrose (D10) 250 mls @ 750 mls/hr IV Q15M PRN; Protocol PRN Reason: per Hypoglycemia Standing Ord. Insulin Human Lispro (Insulin Lispro 100 Unit/Ml 3 Ml Vial) 0 unit SUBCUT QIDACHS [facility]; Protocol Last Admin: 08/07/24 08:18 Dose: 2 unit Documented By: BRINA Levothyroxine Sodium (Levothyroxine Sodium 112 Mcg Tablet) 112 mcg PO DAILY@0600 [facility] Last Admin: 08/07/24 05:30 Dose: 112 mcg Documented By: NAHED Lidocaine (Lidocaine 4 % Patch Adh..Patch) 1 patch TRANSDERMA DAILY PRN PRN Reason: Pain Last Admin: 07/11/24 23:31 Dose: 1 patch Documented By: JOSSUE Nystatin (Nystatin Powder 15 Gm Bottle) 1 appl TOPICAL BID [facility]; Protocol Last Admin: 08/07/24 08:19 Dose: Not Given Documented By: BRINA Non-Admin Reason: resolved Omeprazole (Omeprazole 20 Mg Yaa.) 20 mg PO BID@0630,1630 [facility] Last Admin: 08/07/24 05:30 Dose: 20 mg Documented By: NAHED Prochlorperazine Edisylate (Prochlorperazine Edisylate 10 Mg/2 Ml Vial) 5 mg IVPUSH Q8H PRN PRN Reason: Nausea and Vomiting Last Admin: 08/03/24 01:27 Dose: 5 mg Documented By: KIESHA-PASCALE Sodium Chloride (0.9 % Sodium Chloride Flush 3 Ml Syringe) 3 ml IVFLUSH QSHIFT [facility] Last Admin: 08/07/24 08:17 Dose: Not Given Documented By: BRINA Non-Admin Reason: No Access Vitamin D (Cholecalciferol (Vitamin D3) 25 Mcg Tablet) 50 mcg PO DAILY [facility] Last Admin: 08/07/24 08:18 Dose: 50 mcg Documented By: BRINA Labs 08/04/24 11:45 08/04/24 11:45 Labs: Laboratory Results - last 24 hr 08/06/24 08/06/24 08/06/24 11:32 16:28 19:59 POC Glucose 201 H 152 H 125 H 08/07/24 07:36 POC Glucose 157 H Assessment and Plan (1) Thrombocytosis: Status: Chronic (2) AMAURY (acute kidney injury): Status: Acute Assessment and Plan: admitted on 07/25 84 y/o F with a past medical history significant for major depressive disorder, HTN, HLD, CAD, IDDM, hypothyroid and GERD, presented to the ED on 07/10/2024 with visual hallucinations, nausea and severe diarrhea and has uti, treated x 7 days,monitored in ED unril 07/19 and admitted d/t gradual decompensation. 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, hematology recommends ASA, JAK2 mutation on outpatient basis diarrhea --resolved AMAURY--related to diarrhea, repeat creatine today gout L wrist, resolved - recent episode of gout on 07/21/2024, treated with colchicine x3 doses HTN - continue amlodipine HLD/CAD - continue atorvastatin and ASA 81 IDDM, BS < 150 -holding lantus -continue SSI, diabetic Hypothyroid - continue levothyroxine GERD - continue omeprazole VTE prophylaxis: Lovenox dispo:awaiting placement check routine labs cbc, bmp on 08/04 ok, Quality Stroke Does the patient have a stroke diagnosis?: No VTE Prior VTE?: No VTE Risk Level:: Medical - moderate - high VTE Device Contraindication: Treatment Not Indicated VTE Drug Contraindication: N/A - Med Ordered
[2024-08-07 11:14] VITALS: BP 108/57; PULSE 84; RESP 16; TEMP 36.7; O2SAT 93
[2024-08-07 11:27] LABS: Glucose, Whole Blood 240 mg/dL (60-115)
[2024-08-07 16:00] VITALS: BP 111/56; PULSE 77; RESP 18; TEMP 36.8; O2SAT 92
[2024-08-07 16:38] LABS: Glucose, Whole Blood 130 mg/dL (60-115)
[2024-08-07 19:39] VITALS: BP 113/66; PULSE 79; RESP 17; TEMP 36.1; O2SAT 93
[2024-08-07] MEDS: Atorvastatin Calcium 10 MG TABLET PO (20:42)
[2024-08-07 20:44] LABS: Glucose, Whole Blood 167 mg/dL (60-115)
[2024-08-07 23:19] VITALS: BP 114/58; PULSE 84; RESP 18; TEMP 36.2; O2SAT 93
[2024-08-08] VITALS (7 sets, daily range): BP systolic 120–142; BP diastolic 58–71; PULSE 82–89; RESP 16–18; TEMP 36–36.4; O2SAT 92–97
[2024-08-08] MEDS: Levothyroxine Sodium 112 MCG TABLET PO (05:18)
[2024-08-08] MEDS: Omeprazole 20 MG CAPSULE.DR PO ×2 (05:18→16:27)
[2024-08-08 08:06] LABS: Glucose, Whole Blood 162 mg/dL (60-115)
[2024-08-08] MEDS: amLODIPine Besylate 5 MG TABLET 10 MG PO (08:50)
[2024-08-08] MEDS: Cholecalciferol (Vitamin D3) 25 MCG TABLET 50 MCG PO (08:50)
[2024-08-08] MEDS: FLUoxetine HCl 20 MG CAPSULE 40 MG PO (08:50)
[2024-08-08] MEDS: Insulin Lispro 100 UNIT/ML 3 ML VIAL SUBCUT ×3 (08:51→20:40)
[2024-08-08] MEDS: Aspirin 81 MG TAB.CHEW PO (08:51)
[2024-08-08] MEDS: Ferrous Sulfate 300 MG/5 ML LIQUID PO (08:51)
[2024-08-08] MEDS: Enoxaparin Sodium 40 MG/0.4 ML SYRINGE SUBCUT (08:51)
--- NOTE | 2024-08-08 11:06 | MHC.CM.PN ---
PATIENT CONTINUES TO AWAIT GUARDIANSHIP.
[2024-08-08 11:37] LABS: Glucose, Whole Blood 156 mg/dL (60-115)
[2024-08-08] MEDS: Nystatin Powder 15 GM BOTTLE 1 APPL TOPICAL ×2 (11:57→20:41)
--- NOTE | 2024-08-08 13:42 | P.PNIM_ITS ---
Subjective Subjective Date of Service: 08/08/24 Interval History: f/u on confusion and awaiting placement no new issues, asking to go home Physical Exam 2 Vital Signs: Vital Signs: Last Vital Signs Temp 97.1 F 08/08/24 11:28 Pulse 86 08/08/24 11:28 Resp 16 08/08/24 11:28 BP 138/66 08/08/24 11:28 Pulse Ox 95 08/08/24 11:28 O2 Del Method Room Air 08/08/24 11:28 O2 Flow Rate 2 07/16/24 06:03 BMI result Body Mass Index 24.2 General: Oriented to self, place Resp: CTA bilateral CVS: S1,S2,RRR GI: +BS, NT, no distention Skin: No rash Neuro: motor grossly intact Psych: appropriate affect Objective Data Active Medications Acetaminophen (Acetaminophen 325 Mg Tablet) 975 mg PO Q6H PRN PRN Reason: Pain, Mild 1-3,fever,headache Last Admin: 08/06/24 20:18 Dose: 975 mg Documented By: NAHED Amlodipine Besylate (Amlodipine Besylate 5 Mg Tablet) 10 mg PO DAILY [facility]; Protocol Last Admin: 08/08/24 08:50 Dose: 10 mg Documented By: CHAPIN Aspirin (Aspirin 81 Mg Tab.Chew) 81 mg PO DAILY [facility] Last Admin: 08/08/24 08:51 Dose: 81 mg Documented By: CHAPIN Atorvastatin Calcium (Atorvastatin Calcium 10 Mg Tablet) 10 mg PO BEDTIME [facility] Last Admin: 08/07/24 20:42 Dose: 10 mg Documented By: CHRISTIAN Enoxaparin Sodium (Enoxaparin Sodium 40 Mg/0.4 Ml Syringe) 40 mg SUBCUT Q24H [facility] Last Admin: 08/08/24 08:51 Dose: 40 mg Documented By: CHAPIN Ferrous Sulfate (Ferrous Sulfate 300 Mg/5 Ml Liquid) 300 mg PO DAILY [facility] Last Admin: 08/08/24 08:51 Dose: 300 mg Documented By: CHAPIN Fluoxetine HCl (Fluoxetine Hcl 20 Mg Capsule) 40 mg PO DAILY [facility] Last Admin: 08/08/24 08:50 Dose: 40 mg Documented By: CHAPIN Glucose (Glucose Gel 15 Gm Gel..Gram.) 15 gm PO Q15M PRN; Protocol PRN Reason: per Hypoglycemia Standing Ord. Dextrose (D10) 250 mls @ 750 mls/hr IV Q15M PRN; Protocol PRN Reason: per Hypoglycemia Standing Ord. Insulin Human Lispro (Insulin Lispro 100 Unit/Ml 3 Ml Vial) 0 unit SUBCUT QIDACHS [facility]; Protocol Last Admin: 08/08/24 11:57 Dose: 2 unit Documented By: CHAPIN Levothyroxine Sodium (Levothyroxine Sodium 112 Mcg Tablet) 112 mcg PO DAILY@0600 [facility] Last Admin: 08/08/24 05:18 Dose: 112 mcg Documented By: CHRISTIAN Lidocaine (Lidocaine 4 % Patch Adh..Patch) 1 patch TRANSDERMA DAILY PRN PRN Reason: Pain Last Admin: 07/11/24 23:31 Dose: 1 patch Documented By: JOSSUE Nystatin (Nystatin Powder 15 Gm Bottle) 1 appl TOPICAL BID [facility]; Protocol Last Admin: 08/08/24 11:57 Dose: 1 appl Documented By: CHAPIN Omeprazole (Omeprazole 20 Mg Capsule.) 20 mg PO BID@0630,1630 [facility] Last Admin: 08/08/24 05:18 Dose: 20 mg Documented By: CHRISTIAN Prochlorperazine Edisylate (Prochlorperazine Edisylate 10 Mg/2 Ml Vial) 5 mg IVPUSH Q8H PRN PRN Reason: Nausea and Vomiting Last Admin: 08/03/24 01:27 Dose: 5 mg Documented By: JUDD Sodium Chloride (0.9 % Sodium Chloride Flush 3 Ml Syringe) [facility] Last Admin: 08/08/24 08:51 Dose: Not Given Documented By: CHAPIN Non-Admin Reason: No Access Vitamin D (Cholecalciferol (Vitamin D3) 25 Mcg Tablet) 50 mcg PO DAILY [facility] Last Admin: 08/08/24 08:50 Dose: 50 mcg Documented By: CHAPIN Labs 08/04/24 11:45 08/04/24 11:45 Labs: Laboratory Results - last 24 hr 08/07/24 08/07/24 08/08/24 16:33 20:31 07:45 POC Glucose 130 H 167 H 162 H 08/08/24 11:30 POC Glucose 156 H Assessment and Plan (1) Thrombocytosis: Status: Chronic (2) AMAURY (acute kidney injury): Status: Acute Assessment and Plan: admitted on 07/25 84 y/o F with a past medical history significant for major depressive disorder, HTN, HLD, CAD, IDDM, hypothyroid and GERD, presented to the ED on 07/10/2024 with visual hallucinations, nausea and severe diarrhea and has uti, treated x 7 days,monitored in ED unril 07/19 and admitted d/t gradual decompensation. 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, hematology recommends ASA, JAK2 mutation on outpatient basis diarrhea --resolved AMAURY--related to diarrhea, repeat creatine today gout L wrist, resolved - recent episode of gout on 07/21/2024, treated with colchicine x3 doses HTN - continue amlodipine HLD/CAD - continue atorvastatin and ASA 81 IDDM, BS < 150 -holding lantus -continue SSI, diabetic Hypothyroid - continue levothyroxine GERD - continue omeprazole VTE prophylaxis: Lovenox dispo:awaiting placement check routine labs cbc, bmp on 08/04 ok, Quality Stroke Does the patient have a stroke diagnosis?: No VTE Prior VTE?: No VTE Risk Level:: Medical - moderate - high VTE Device Contraindication: Treatment Not Indicated VTE Drug Contraindication: N/A - Med Ordered
[2024-08-08 16:15] LABS: Glucose, Whole Blood 120 mg/dL (60-115)
[2024-08-08 20:28] LABS: Glucose, Whole Blood 189 mg/dL (60-115)
[2024-08-08] MEDS: Atorvastatin Calcium 10 MG TABLET PO (20:40)
[2024-08-09] VITALS (7 sets, daily range): BP systolic 122–149; BP diastolic 58–75; PULSE 75–94; RESP 16–18; TEMP 36–36.8; O2SAT 93–99
[2024-08-09] MEDS: Omeprazole 20 MG CAPSULE.DR PO (05:38)
[2024-08-09] MEDS: Levothyroxine Sodium 112 MCG TABLET PO (05:38)
[2024-08-09 07:33] LABS: Glucose, Whole Blood 158 mg/dL (60-115)
[2024-08-09] MEDS: Insulin Lispro 100 UNIT/ML 3 ML VIAL SUBCUT ×3 (08:00→21:30)
[2024-08-09] MEDS: amLODIPine Besylate 5 MG TABLET 10 MG PO (08:01)
[2024-08-09] MEDS: Aspirin 81 MG TAB.CHEW PO (08:01)
[2024-08-09] MEDS: Cholecalciferol (Vitamin D3) 25 MCG TABLET 50 MCG PO (08:01)
[2024-08-09] MEDS: FLUoxetine HCl 20 MG CAPSULE 40 MG PO (08:01)
[2024-08-09] MEDS: Ferrous Sulfate 300 MG/5 ML LIQUID PO (08:01)
[2024-08-09] MEDS: Enoxaparin Sodium 40 MG/0.4 ML SYRINGE SUBCUT (08:01)
[2024-08-09] MEDS: Nystatin Powder 15 GM BOTTLE 1 APPL TOPICAL ×2 (08:02→23:25)
[2024-08-09 11:14] LABS: Glucose, Whole Blood 151 mg/dL (60-115)
--- NOTE | 2024-08-09 12:30 | P.PNIM_ITS ---
Subjective Subjective Date of Service: 08/09/24 Interval History: f/u on confusion and awaiting placement No new issues Physical Exam 2 Vital Signs: Vital Signs: Last Vital Signs Temp 98.2 F 08/09/24 11:48 Pulse 90 08/09/24 11:48 Resp 16 08/09/24 11:48 BP 128/71 08/09/24 11:48 Pulse Ox 94 08/09/24 11:48 O2 Del Method Room Air 08/09/24 11:48 O2 Flow Rate 2 07/16/24 06:03 BMI result Body Mass Index 24.2 General: Oriented to self, place Resp: CTA bilateral CVS: S1,S2,RRR GI: +BS, NT, no distention Skin: No rash Neuro: motor grossly intact Psych: appropriate affect Objective Data Active Medications Acetaminophen (Acetaminophen 325 Mg Tablet) 975 mg PO Q6H PRN PRN Reason: Pain, Mild 1-3,fever,headache Last Admin: 08/06/24 20:18 Dose: 975 mg Documented By: NAHED Amlodipine Besylate (Amlodipine Besylate 5 Mg Tablet) 10 mg PO DAILY [facility]; Protocol Last Admin: 08/09/24 08:01 Dose: 10 mg Documented By: JEANNE Aspirin (Aspirin 81 Mg Tab.Chew) 81 mg PO DAILY [facility] Last Admin: 08/09/24 08:01 Dose: 81 mg Documented By: JEANNE Atorvastatin Calcium (Atorvastatin Calcium 10 Mg Tablet) 10 mg PO BEDTIME [facility] Last Admin: 08/08/24 20:40 Dose: 10 mg Documented By: CHRISTIAN Enoxaparin Sodium (Enoxaparin Sodium 40 Mg/0.4 Ml Syringe) 40 mg SUBCUT Q24H [facility] Last Admin: 08/09/24 08:01 Dose: 40 mg Documented By: JEANNE Ferrous Sulfate (Ferrous Sulfate 300 Mg/5 Ml Liquid) 300 mg PO DAILY [facility] Last Admin: 08/09/24 08:01 Dose: 300 mg Documented By: JEANNE Fluoxetine HCl (Fluoxetine Hcl 20 Mg Capsule) 40 mg PO DAILY [facility] Last Admin: 08/09/24 08:01 Dose: 40 mg Documented By: JEANNE Glucose (Glucose Gel 15 Gm Gel..Gram.) 15 gm PO Q15M PRN; Protocol PRN Reason: per Hypoglycemia Standing Ord. Dextrose (D10) 250 mls @ 750 mls/hr IV Q15M PRN; Protocol PRN Reason: per Hypoglycemia Standing Ord. Insulin Human Lispro (Insulin Lispro 100 Unit/Ml 3 Ml Vial) 0 unit SUBCUT QIDACHS [facility]; Protocol Last Admin: 08/09/24 11:35 Dose: 2 unit Documented By: JEANNE Levothyroxine Sodium (Levothyroxine Sodium 112 Mcg Tablet) 112 mcg PO DAILY@0600 [facility] Last Admin: 08/09/24 05:38 Dose: 112 mcg Documented By: CHRISTIAN Lidocaine (Lidocaine 4 % Patch Adh..Patch) 1 patch TRANSDERMA DAILY PRN PRN Reason: Pain Last Admin: 07/11/24 23:31 Dose: 1 patch Documented By: JOSSUE Nystatin (Nystatin Powder 15 Gm Bottle) 1 appl TOPICAL BID [facility]; Protocol Last Admin: 08/09/24 08:02 Dose: 1 appl Documented By: JEANNE Omeprazole (Omeprazole 20 Mg Capsule.Dr) 20 mg PO BID@0630,1630 [facility] Last Admin: 08/09/24 05:38 Dose: 20 mg Documented By: CHRISTIAN Prochlorperazine Edisylate (Prochlorperazine Edisylate 10 Mg/2 Ml Vial) 5 mg IVPUSH Q8H PRN PRN Reason: Nausea and Vomiting Last Admin: 08/03/24 01:27 Dose: 5 mg Documented By: JUDD Sodium Chloride (0.9 % Sodium Chloride Flush 3 Ml Syringe) 3 [facility] Last Admin: 08/09/24 08:19 Dose: Not Given Documented By: JEANNE Non-Admin Reason: No Access Vitamin D (Cholecalciferol (Vitamin D3) 25 Mcg Tablet) 50 mcg PO DAILY [facility] Last Admin: 08/09/24 08:01 Dose: 50 mcg Documented By: JEANNE Labs 08/04/24 11:45 08/04/24 11:45 Labs: Laboratory Results - last 24 hr 08/08/24 08/08/24 08/09/24 16:06 20:03 07:30 POC Glucose 120 H 189 H 158 H 08/09/24 11:09 POC Glucose 151 H Assessment and Plan (1) Thrombocytosis: Status: Chronic (2) AMAURY (acute kidney injury): Status: Acute Assessment and Plan: admitted on 07/25 84 y/o F with a past medical history significant for major depressive disorder, HTN, HLD, CAD, IDDM, hypothyroid and GERD, presented to the ED on 07/10/2024 with visual hallucinations, nausea and severe diarrhea and has uti, treated x 7 days,monitored in ED unril 07/19 and admitted d/t gradual decompensation. 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, hematology recommends ASA, JAK2 mutation on outpatient basis diarrhea --resolved AMAURY--related to diarrhea, repeat creatine today gout L wrist, resolved - recent episode of gout on 07/21/2024, treated with colchicine x3 doses HTN - continue amlodipine HLD/CAD - continue atorvastatin and ASA 81 IDDM, BS < 150 -holding lantus -continue SSI, diabetic Hypothyroid - continue levothyroxine GERD - continue omeprazole VTE prophylaxis: Lovenox dispo:awaiting placement check routine labs cbc, bmp on 08/04 ok, attempt to get out of bed and ambulate Quality Stroke Does the patient have a stroke diagnosis?: No VTE Prior VTE?: No VTE Risk Level:: Medical - moderate - high VTE Device Contraindication: Treatment Not Indicated VTE Drug Contraindication: N/A - Med Ordered
--- NOTE | 2024-08-09 12:30 | MHC.CM.PN ---
PER CM DIRECTOR COURT DATE FOR GUARDIANSHIP SCHEDULED FOR 08/22 @ 3:30
[2024-08-09 16:23] LABS: Glucose, Whole Blood 169 mg/dL (60-115)
[2024-08-09 19:45] LABS: Glucose, Whole Blood 192 mg/dL (60-115)
[2024-08-09] MEDS: Atorvastatin Calcium 10 MG TABLET PO (22:18)
[2024-08-09] MEDS: 0.9 % Sodium Chloride Flush 3 ML SYRINGE IVFLUSH (23:24)
[2024-08-10] VITALS (8 sets, daily range): BP systolic 112–148; BP diastolic 57–75; PULSE 54–87; RESP 16–20; TEMP 36.3–37.2; O2SAT 93–99
[2024-08-10] MEDS: Levothyroxine Sodium 112 MCG TABLET PO (06:10)
[2024-08-10] MEDS: Omeprazole 20 MG CAPSULE.DR PO ×2 (06:12→17:09)
[2024-08-10 07:51] LABS: Glucose, Whole Blood 157 mg/dL (60-115)
[2024-08-10] MEDS: Insulin Lispro 100 UNIT/ML 3 ML VIAL SUBCUT ×3 (09:06→20:50)
[2024-08-10] MEDS: FLUoxetine HCl 20 MG CAPSULE 40 MG PO (09:08)
[2024-08-10] MEDS: amLODIPine Besylate 5 MG TABLET 10 MG PO (09:08)
[2024-08-10] MEDS: Cholecalciferol (Vitamin D3) 25 MCG TABLET 50 MCG PO (09:09)
[2024-08-10] MEDS: Enoxaparin Sodium 40 MG/0.4 ML SYRINGE SUBCUT (09:09)
[2024-08-10] MEDS: Aspirin 81 MG TAB.CHEW PO (09:10)
[2024-08-10] MEDS: Ferrous Sulfate 300 MG/5 ML LIQUID PO (09:10)
[2024-08-10] MEDS: Nystatin Powder 15 GM BOTTLE 1 APPL TOPICAL ×2 (09:11→20:50)
[2024-08-10 11:40] LABS: Glucose, Whole Blood 199 mg/dL (60-115)
--- NOTE | 2024-08-10 12:47 | MHC.CM.PN ---
Patient continues to await guardianship - hearing scheduled for 08/22/24. CM will continue to follow.
--- NOTE | 2024-08-10 16:18 | HO.PM.IMPN ---
Subjective Subjective Date of Service: 08/10/24 Interval History: f/u on confusion and awaiting placement Review of Systems No new issues Physical Exam Vital Signs: Vital Signs: Last Vital Signs Temp 98.9 F 08/10/24 15:21 Pulse 81 08/10/24 15:21 Resp 16 08/10/24 15:21 BP 134/66 08/10/24 15:21 Pulse Ox 94 08/10/24 15:21 O2 Del Method Room Air 08/10/24 15:21 O2 Flow Rate 2 07/16/24 06:03 BMI result Body Mass Index 24.2 General: Oriented to self, place Resp: CTA bilateral CVS: S1,S2,RRR GI: +BS, NT, no distention Skin: No rash Neuro: motor grossly intact Psych: appropriate affect Objective Data Active Medications Acetaminophen (Acetaminophen 325 Mg Tablet) 975 mg PO Q6H PRN PRN Reason: Pain, Mild 1-3,fever,headache Last Admin: 08/06/24 20:18 Dose: 975 mg Documented By: NAHED Amlodipine Besylate (Amlodipine Besylate 5 Mg Tablet) 10 mg PO DAILY [facility]; Protocol Last Admin: 08/10/24 09:08 Dose: 10 mg Documented By: EMILE Aspirin (Aspirin 81 Mg Tab.Chew) 81 mg PO DAILY [facility] Last Admin: 08/10/24 09:10 Dose: 81 mg Documented By: EMILE Atorvastatin Calcium (Atorvastatin Calcium 10 Mg Tablet) 10 mg PO BEDTIME [facility] Last Admin: 08/09/24 22:18 Dose: 10 mg Documented By: MELVINA Enoxaparin Sodium (Enoxaparin Sodium 40 Mg/0.4 Ml Syringe) 40 mg SUBCUT Q24H [facility] Last Admin: 08/10/24 09:09 Dose: 40 mg Documented By: EMILE Ferrous Sulfate (Ferrous Sulfate 300 Mg/5 Ml Liquid) 300 mg PO DAILY [facility] Last Admin: 08/10/24 09:10 Dose: 300 mg Documented By: EMILE Fluoxetine HCl (Fluoxetine Hcl 20 Mg Capsule) 40 mg PO DAILY [facility] Last Admin: 08/10/24 09:08 Dose: 40 mg Documented By: EMILE Glucose (Glucose Gel 15 Gm Gel..Gram.) 15 gm PO Q15M PRN; Protocol PRN Reason: per Hypoglycemia Standing Ord. Dextrose (D10) 250 mls @ 750 mls/hr IV Q15M PRN; Protocol PRN Reason: per Hypoglycemia Standing Ord. Insulin Human Lispro (Insulin Lispro 100 Unit/Ml 3 Ml Vial) 0 unit SUBCUT QIDACHS [facility]; Protocol Last Admin: 08/10/24 16:07 Dose: Not Given Documented By: EMILE Non-Admin Reason: No Insulin Coverage Levothyroxine Sodium (Levothyroxine Sodium 112 Mcg Tablet) 112 mcg PO DAILY@0600 [facility] Last Admin: 08/10/24 06:10 Dose: 112 mcg Documented By: MELVINA Lidocaine (Lidocaine 4 % Patch Adh..Patch) 1 patch TRANSDERMA DAILY PRN PRN Reason: Pain Last Admin: 07/11/24 23:31 Dose: 1 patch Documented By: JOSSUE Nystatin (Nystatin Powder 15 Gm Bottle) 1 appl TOPICAL BID [facility]; Protocol Last Admin: 08/10/24 09:11 Dose: 1 appl Documented By: EMILE Omeprazole (Omeprazole 20 Mg Yaa.) 20 mg PO BID@0630,1630 [facility] Last Admin: 08/10/24 06:12 Dose: 20 mg Documented By: MELVINA Prochlorperazine Edisylate (Prochlorperazine Edisylate 10 Mg/2 Ml Vial) 5 mg IVPUSH Q8H PRN PRN Reason: Nausea and Vomiting Last Admin: 08/03/24 01:27 Dose: 5 mg Documented By: JUDD Sodium Chloride (0.9 % Sodium Chloride Flush 3 Ml Syringe) [facility] Last Admin: 08/10/24 09:16 Dose: Not Given Documented By: EMILE Non-Admin Reason: no iv access Vitamin D (Cholecalciferol (Vitamin D3) 25 Mcg Tablet) 50 mcg PO DAILY [facility] Last Admin: 08/10/24 09:09 Dose: 50 mcg Documented By: EMILE Labs 08/04/24 11:45 08/04/24 11:45 Labs: Laboratory Results - last 24 hr 08/09/24 08/09/24 08/10/24 16:19 19:42 07:08 POC Glucose 169 H 192 H 157 H 01/22/25 11:20 POC Glucose 199 H Assessment and Plan (1) Thrombocytosis: Status: Chronic (2) AMAURY (acute kidney injury): Status: Acute Assessment and Plan: admitted on 07/25 84 y/o F with a past medical history significant for major depressive disorder, HTN, HLD, CAD, IDDM, hypothyroid and GERD, presented to the ED on 07/10/2024 with visual hallucinations, nausea and severe diarrhea and has uti, treated x 7 days,monitored in ED unril 07/19 and admitted d/t gradual decompensation. 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, hematology recommends ASA, JAK2 mutation on outpatient basis diarrhea --resolved AMAURY--related to diarrhea, repeat creatine today gout L wrist, resolved - recent episode of gout on 07/21/2024, treated with colchicine x3 doses HTN - continue amlodipine HLD/CAD - continue atorvastatin and ASA 81 IDDM, BS < 150 -holding lantus -continue SSI, diabetic Hypothyroid - continue levothyroxine GERD - continue omeprazole VTE prophylaxis: Lovenox dispo:awaiting placement check routine labs cbc, bmp on 08/04 ok, attempt to get out of bed and ambulate Quality Stroke Does the patient have a stroke diagnosis?: No VTE Prior VTE?: No VTE Risk Level:: Medical - moderate - high VTE Device Contraindication: Treatment Not Indicated VTE Drug Contraindication: N/A - Med Ordered
[2024-08-10 16:20] LABS: Glucose, Whole Blood 135 mg/dL (60-115)
[2024-08-10 20:36] LABS: Glucose, Whole Blood 250 mg/dL (60-115)
[2024-08-10] MEDS: Atorvastatin Calcium 10 MG TABLET PO (20:50)
[2024-08-11 03:30] VITALS: BP 150/70; PULSE 80; RESP 18; TEMP 36.1; O2SAT 94
[2024-08-11] MEDS: Levothyroxine Sodium 112 MCG TABLET PO (05:43)
[2024-08-11] MEDS: Omeprazole 20 MG CAPSULE.DR PO ×2 (05:44→17:36)
[2024-08-11 07:36] LABS: Glucose, Whole Blood 147 mg/dL (60-115)
[2024-08-11 08:00] VITALS: BP 135/65; PULSE 85; RESP 18; TEMP 37.2; O2SAT 96
[2024-08-11] MEDS: Ferrous Sulfate 300 MG/5 ML LIQUID PO (08:51)
[2024-08-11] MEDS: Aspirin 81 MG TAB.CHEW PO (08:51)
[2024-08-11] MEDS: FLUoxetine HCl 20 MG CAPSULE 40 MG PO (08:51)
[2024-08-11] MEDS: amLODIPine Besylate 5 MG TABLET 10 MG PO (08:52)
[2024-08-11] MEDS: Cholecalciferol (Vitamin D3) 25 MCG TABLET 50 MCG PO (08:52)
[2024-08-11] MEDS: Enoxaparin Sodium 40 MG/0.4 ML SYRINGE SUBCUT (08:52)
[2024-08-11] MEDS: Nystatin Powder 15 GM BOTTLE 1 APPL TOPICAL ×2 (09:01→20:21)
[2024-08-11 12:15] LABS: Glucose, Whole Blood 191 mg/dL (60-115)
[2024-08-11] MEDS: Insulin Lispro 100 UNIT/ML 3 ML VIAL SUBCUT ×2 (12:34→20:21)
[2024-08-11 16:00] VITALS: BP 135/66; RESP 18; TEMP 36.9; O2SAT 95
--- NOTE | 2024-08-11 17:05 | HO.PM.IMPN ---
Subjective Subjective Date of Service: 08/11/24 Interval History: f/u on confusion and awaiting placement Review of Systems No new issues Physical Exam Vital Signs: Vital Signs: Last Vital Signs Temp 98.4 F 08/11/24 16:00 Pulse 85 08/11/24 08:00 Resp 18 08/11/24 16:00 BP 135/66 08/11/24 16:00 Pulse Ox 95 08/11/24 16:00 O2 Del Method Room Air 08/11/24 16:00 O2 Flow Rate 2 07/16/24 06:03 BMI result Body Mass Index 24.2 General: Oriented to self, place Resp: CTA bilateral CVS: S1,S2,RRR GI: +BS, NT, no distention Skin: No rash Neuro: motor grossly intact Psych: appropriate affect Objective Data Active Medications Acetaminophen (Acetaminophen 325 Mg Tablet) 975 mg PO Q6H PRN PRN Reason: Pain, Mild 1-3,fever,headache Last Admin: 08/06/24 20:18 Dose: 975 mg Documented By: NAHED Amlodipine Besylate (Amlodipine Besylate 5 Mg Tablet) 10 mg PO DAILY [facility]; Protocol Last Admin: 08/11/24 08:52 Dose: 10 mg Documented By: OSKAR Aspirin (Aspirin 81 Mg Tab.Chew) 81 mg PO DAILY [facility] Last Admin: 08/11/24 08:51 Dose: 81 mg Documented By: OSKAR Atorvastatin Calcium (Atorvastatin Calcium 10 Mg Tablet) 10 mg PO BEDTIME [facility] Last Admin: 08/10/24 20:50 Dose: 10 mg Documented By: NAHED Enoxaparin Sodium (Enoxaparin Sodium 40 Mg/0.4 Ml Syringe) 40 mg SUBCUT Q24H [facility] Last Admin: 08/11/24 08:52 Dose: 40 mg Documented By: OSKAR Ferrous Sulfate (Ferrous Sulfate 300 Mg/5 Ml Liquid) 300 mg PO DAILY [facility] Last Admin: 08/11/24 08:51 Dose: 300 mg Documented By: OSKAR Fluoxetine HCl (Fluoxetine Hcl 20 Mg Capsule) 40 mg PO DAILY [facility] Last Admin: 08/11/24 08:51 Dose: 40 mg Documented By: OSKAR Glucose (Glucose Gel 15 Gm Gel..Gram.) 15 gm PO Q15M PRN; Protocol PRN Reason: per Hypoglycemia Standing Ord. Dextrose (D10) 250 mls @ 750 mls/hr IV Q15M PRN; Protocol PRN Reason: per Hypoglycemia Standing Ord. Insulin Human Lispro (Insulin Lispro 100 Unit/Ml 3 Ml Vial) 0 unit SUBCUT QIDACHS [facility]; Protocol Last Admin: 08/11/24 12:34 Dose: 2 unit Documented By: OSKAR Levothyroxine Sodium (Levothyroxine Sodium 112 Mcg Tablet) 112 mcg PO DAILY@0600 [facility] Last Admin: 08/11/24 05:43 Dose: 112 mcg Documented By: NAHED Lidocaine (Lidocaine 4 % Patch Adh..Patch) 1 patch TRANSDERMA DAILY PRN PRN Reason: Pain Last Admin: 07/11/24 23:31 Dose: 1 patch Documented By: PAMLAMBob Nystatin (Nystatin Powder 15 Gm Bottle) 1 appl TOPICAL BID [facility]; Protocol Last Admin: 08/11/24 09:01 Dose: 1 appl Documented By: OSKAR Omeprazole (Omeprazole 20 Mg Yaa.) 20 mg PO BID@0630,1630 [facility] Last Admin: 08/11/24 05:44 Dose: 20 mg Documented By: NAHED Prochlorperazine Edisylate (Prochlorperazine Edisylate 10 Mg/2 Ml Vial) 5 mg IVPUSH Q8H PRN PRN Reason: Nausea and Vomiting Last Admin: 08/03/24 01:27 Dose: 5 mg Documented By: KIESHA-PASCALE Sodium Chloride (0.9 % Sodium Chloride Flush 3 Ml Syringe) 3 ml IVFLUSH QSHIFT [facility] Last Admin: 08/11/24 08:55 Dose: Not Given Documented By: OSKAR Non-Admin Reason: No Access Vitamin D (Cholecalciferol (Vitamin D3) 25 Mcg Tablet) 50 mcg PO DAILY [facility] Last Admin: 08/11/24 08:52 Dose: 50 mcg Documented By: OSKAR Labs 08/04/24 11:45 08/04/24 11:45 Labs: Laboratory Results - last 24 hr 08/10/24 08/11/24 08/11/24 20:24 07:31 11:55 POC Glucose 250 H 147 H 191 H Assessment and Plan (1) Thrombocytosis: Status: Chronic (2) AMAURY (acute kidney injury): Status: Acute Assessment and Plan: admitted on 07/25 84 y/o F with a past medical history significant for major depressive disorder, HTN, HLD, CAD, IDDM, hypothyroid and GERD, presented to the ED on 07/10/2024 with visual hallucinations, nausea and severe diarrhea and has uti, treated x 7 days,monitored in ED unril 07/19 and admitted d/t gradual decompensation. 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, hematology recommends ASA, JAK2 mutation on outpatient basis diarrhea --resolved AMAURY--related to diarrhea, repeat creatine today gout L wrist, resolved - recent episode of gout on 07/21/2024, treated with colchicine x3 doses HTN - continue amlodipine HLD/CAD - continue atorvastatin and ASA 81 IDDM, BS < 150 -holding lantus -continue SSI, diabetic Hypothyroid - continue levothyroxine GERD - continue omeprazole VTE prophylaxis: Lovenox dispo:awaiting placement check routine labs cbc, bmp on 08/04 ok, attempt to get out of bed and ambulate Quality Stroke Does the patient have a stroke diagnosis?: No VTE Prior VTE?: No VTE Risk Level:: Medical - moderate - high VTE Device Contraindication: Treatment Not Indicated VTE Drug Contraindication: N/A - Med Ordered
[2024-08-11 17:13] LABS: Glucose, Whole Blood 138 mg/dL (60-115)
[2024-08-11 19:55] LABS: Glucose, Whole Blood 207 mg/dL (60-115)
[2024-08-11] MEDS: Atorvastatin Calcium 10 MG TABLET PO (20:21)
[2024-08-11 23:47] VITALS: BP 123/59; PULSE 87; RESP 18; TEMP 36.6; O2SAT 93
[2024-08-12] MEDS: Omeprazole 20 MG CAPSULE.DR PO ×2 (05:16→17:21)
[2024-08-12] MEDS: Levothyroxine Sodium 112 MCG TABLET PO (05:16)
[2024-08-12 07:49] LABS: Glucose, Whole Blood 149 mg/dL (60-115)
[2024-08-12 08:10] VITALS: BP 152/71; PULSE 89; RESP 12; TEMP 36.1; O2SAT 95
[2024-08-12] MEDS: Ferrous Sulfate 300 MG/5 ML LIQUID PO (09:36)
[2024-08-12] MEDS: FLUoxetine HCl 20 MG CAPSULE 40 MG PO (09:37)
[2024-08-12] MEDS: amLODIPine Besylate 5 MG TABLET 10 MG PO (09:37)
[2024-08-12] MEDS: Aspirin 81 MG TAB.CHEW PO (09:37)
[2024-08-12] MEDS: Cholecalciferol (Vitamin D3) 25 MCG TABLET 50 MCG PO (09:37)
[2024-08-12] MEDS: Enoxaparin Sodium 40 MG/0.4 ML SYRINGE SUBCUT (09:38)
[2024-08-12] MEDS: Nystatin Powder 15 GM BOTTLE 1 APPL TOPICAL ×2 (09:44→21:16)
--- NOTE | 2024-08-12 10:44 | MHC.CM.PN ---
Patient continues to await guardianship - hearing scheduled for 08/22/24. CM will continue to follow
[2024-08-12] MEDS: Insulin Lispro 100 UNIT/ML 3 ML VIAL SUBCUT ×3 (12:00→20:58)
[2024-08-12 12:04] LABS: Glucose, Whole Blood 309 mg/dL (60-115)
--- NOTE | 2024-08-12 14:05 | HO.PM.IMPN ---
Subjective Subjective Date of Service: 08/12/24 Interval History: f/u on confusion and awaiting placement Review of Systems No new issues Physical Exam Vital Signs: Vital Signs: Last Vital Signs Temp 96.9 F 08/12/24 08:10 Pulse 89 08/12/24 08:10 Resp 12 08/12/24 08:10 BP 152/71 H 08/12/24 08:10 Pulse Ox 95 08/12/24 08:10 O2 Del Method Room Air 08/12/24 08:10 O2 Flow Rate 2 07/16/24 06:03 BMI result Body Mass Index 24.2 General: Oriented to self, place Resp: CTA bilateral CVS: S1,S2,RRR GI: +BS, NT, no distention Skin: No rash Neuro: motor grossly intact Psych: appropriate affect Objective Data Active Medications Acetaminophen (Acetaminophen 325 Mg Tablet) 975 mg PO Q6H PRN PRN Reason: Pain, Mild 1-3,fever,headache Last Admin: 08/06/24 20:18 Dose: 975 mg Documented By: NAHED Amlodipine Besylate (Amlodipine Besylate 5 Mg Tablet) 10 mg PO DAILY [facility]; Protocol Last Admin: 08/12/24 09:37 Dose: 10 mg Documented By: OSKAR Aspirin (Aspirin 81 Mg Tab.Chew) 81 mg PO DAILY [facility] Last Admin: 08/12/24 09:37 Dose: 81 mg Documented By: OSKAR Atorvastatin Calcium (Atorvastatin Calcium 10 Mg Tablet) 10 mg PO BEDTIME [facility] Last Admin: 08/11/24 20:21 Dose: 10 mg Documented By: NAHED Enoxaparin Sodium (Enoxaparin Sodium 40 Mg/0.4 Ml Syringe) 40 mg SUBCUT Q24H [facility] Last Admin: 08/12/24 09:38 Dose: 40 mg Documented By: OSKAR Ferrous Sulfate (Ferrous Sulfate 300 Mg/5 Ml Liquid) 300 mg PO DAILY [facility] Last Admin: 08/12/24 09:36 Dose: 300 mg Documented By: OSKAR Fluoxetine HCl (Fluoxetine Hcl 20 Mg Capsule) 40 mg PO DAILY [facility] Last Admin: 08/12/24 09:37 Dose: 40 mg Documented By: OSKAR Glucose (Glucose Gel 15 Gm Gel..Gram.) 15 gm PO Q15M PRN; Protocol PRN Reason: per Hypoglycemia Standing Ord. Dextrose (D10) 250 mls @ 750 mls/hr IV Q15M PRN; Protocol PRN Reason: per Hypoglycemia Standing Ord. Insulin Human Lispro (Insulin Lispro 100 Unit/Ml 3 Ml Vial) 0 unit SUBCUT QIDACHS [facility]; Protocol Last Admin: 08/12/24 12:00 Dose: 8 unit Documented By: OSKAR Levothyroxine Sodium (Levothyroxine Sodium 112 Mcg Tablet) 112 mcg PO DAILY@0600 [facility] Last Admin: 08/12/24 05:16 Dose: 112 mcg Documented By: NAHED Lidocaine (Lidocaine 4 % Patch Adh..Patch) 1 patch TRANSDERMA DAILY PRN PRN Reason: Pain Last Admin: 07/11/24 23:31 Dose: 1 patch Documented By: JOSSUE Nystatin (Nystatin Powder 15 Gm Bottle) 1 appl TOPICAL BID [facility]; Protocol Last Admin: 08/12/24 09:44 Dose: 1 appl Documented By: OSKAR Omeprazole (Omeprazole 20 Mg Capsule.) 20 mg PO BID@0630,1630 [facility] Last Admin: 08/12/24 05:16 Dose: 20 mg Documented By: NAHED Prochlorperazine Edisylate (Prochlorperazine Edisylate 10 Mg/2 Ml Vial) 5 mg IVPUSH Q8H PRN PRN Reason: Nausea and Vomiting Last Admin: 08/03/24 01:27 Dose: 5 mg Documented By: JUDD Sodium Chloride (0.9 % Sodium Chloride Flush 3 Ml Syringe) 3 ml IVFLUSH QSHIFT [facility] Last Admin: 08/12/24 09:36 Dose: 3 ml Documented By: OSKAR Vitamin D (Cholecalciferol (Vitamin D3) 25 Mcg Tablet) 50 mcg PO DAILY [facility] Last Admin: 08/12/24 09:37 Dose: 50 mcg Documented By: OSKAR Labs 08/04/24 11:45 08/04/24 11:45 Labs: Laboratory Results - last 24 hr 08/11/24 08/11/24 08/12/24 17:07 19:50 07:29 POC Glucose 138 H 207 H 149 H 08/12/24 11:44 POC Glucose 309 H Assessment and Plan (1) Thrombocytosis: Status: Chronic (2) AMAURY (acute kidney injury): Status: Acute Assessment and Plan: admitted on 07/25 84 y/o F with a past medical history significant for major depressive disorder, HTN, HLD, CAD, IDDM, hypothyroid and GERD, presented to the ED on 07/10/2024 with visual hallucinations, nausea and severe diarrhea and has uti, treated x 7 days,monitored in ED unril 07/19 and admitted d/t gradual decompensation. 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 VTE prophylaxis: Lovenox dispo:awaiting placement check routine labs cbc, bmp on 08/04 ok, attempt to get out of bed and ambulate Quality Stroke Does the patient have a stroke diagnosis?: No VTE Prior VTE?: No VTE Risk Level:: Medical - moderate - high VTE Device Contraindication: Treatment Not Indicated VTE Drug Contraindication: N/A - Med Ordered
[2024-08-12 15:24] VITALS: BP 129/68; PULSE 100; RESP 21; TEMP 36.7; O2SAT 97
[2024-08-12 16:17] LABS: Glucose, Whole Blood 152 mg/dL (60-115)
[2024-08-12 19:19] VITALS: BP 150/70; PULSE 93; RESP 20; TEMP 36.7; O2SAT 96
[2024-08-12 20:48] LABS: Glucose, Whole Blood 166 mg/dL (60-115)
[2024-08-12] MEDS: Atorvastatin Calcium 10 MG TABLET PO (20:58)
[2024-08-13] VITALS: BP 152/71; PULSE 89; RESP 18; TEMP 36.1; O2SAT 94
[2024-08-13] MEDS: Levothyroxine Sodium 112 MCG TABLET PO (06:06)
[2024-08-13] MEDS: Omeprazole 20 MG CAPSULE.DR PO ×2 (06:06→17:06)
[2024-08-13 07:44] LABS: Glucose, Whole Blood 156 mg/dL (60-115)
[2024-08-13] MEDS: Insulin Lispro 100 UNIT/ML 3 ML VIAL SUBCUT ×3 (08:13→20:50)
[2024-08-13] MEDS: Aspirin 81 MG TAB.CHEW PO (08:13)
[2024-08-13] MEDS: amLODIPine Besylate 5 MG TABLET 10 MG PO (08:13)
[2024-08-13] MEDS: Ferrous Sulfate 300 MG/5 ML LIQUID PO (08:13)
[2024-08-13] MEDS: Cholecalciferol (Vitamin D3) 25 MCG TABLET 50 MCG PO (08:13)
[2024-08-13] MEDS: FLUoxetine HCl 20 MG CAPSULE 40 MG PO (08:13)
[2024-08-13 08:17] VITALS: BP 145/66; PULSE 107; RESP 18; TEMP 36.6; O2SAT 95
[2024-08-13] MEDS: Nystatin Powder 15 GM BOTTLE 1 APPL TOPICAL ×2 (08:17→20:51)
[2024-08-13 11:36] LABS: Glucose, Whole Blood 155 mg/dL (60-115)
--- NOTE | 2024-08-13 12:53 | P.PNIM_ITS ---
Subjective Subjective Date of Service: 08/13/24 Interval History: No acute issues overnight Review of Systems Denies chest pain Denies shortness of breath Denies nausea vomiting diarrhea Denies fever chills Physical Exam 2 Vital Signs: Vital Signs: Last Vital Signs Temp 97.8 F 08/13/24 08:17 Pulse 107 H 08/13/24 08:17 Resp 18 08/13/24 08:17 BP 145/66 H 08/13/24 08:17 Pulse Ox 95 08/13/24 08:17 O2 Del Method Room Air 08/13/24 08:17 O2 Flow Rate 2 07/16/24 06:03 BMI result Body Mass Index 24.2 Const: Other: Awake alert no acute distress Resp: Other: Clear to auscultation bilaterally no rales rhonchi or wheeze Cardio: Other: No S4; positive S1-S2; no S3 murmurs rubs or gallops GI: Other: Soft nontender nondistended normoactive bowel sounds Extrem: Other: No edema bilaterally Objective Data Active Medications Acetaminophen (Acetaminophen 325 Mg Tablet) 975 mg PO Q6H PRN PRN Reason: Pain, Mild 1-3,fever,headache Last Admin: 08/06/24 20:18 Dose: 975 mg Documented By: NAHED Amlodipine Besylate (Amlodipine Besylate 5 Mg Tablet) 10 mg PO DAILY [facility]; Protocol Last Admin: 08/13/24 08:13 Dose: 10 mg Documented By: AMANDO Aspirin (Aspirin 81 Mg Tab.Chew) 81 mg PO DAILY [facility] Last Admin: 08/13/24 08:13 Dose: 81 mg Documented By: AMANDO Atorvastatin Calcium (Atorvastatin Calcium 10 Mg Tablet) 10 mg PO BEDTIME [facility] Last Admin: 08/12/24 20:58 Dose: 10 mg Documented By: LAW Enoxaparin Sodium (Enoxaparin Sodium 40 Mg/0.4 Ml Syringe) 40 mg SUBCUT Q24H [facility] Last Admin: 08/13/24 08:14 Dose: Not Given Documented By: AMANDO Non-Admin Reason: Patient Refused Ferrous Sulfate (Ferrous Sulfate 300 Mg/5 Ml Liquid) 300 mg PO DAILY [facility] Last Admin: 08/13/24 08:13 Dose: 300 mg Documented By: AMANDO Fluoxetine HCl (Fluoxetine Hcl 20 Mg Capsule) 40 mg PO DAILY [facility] Last Admin: 08/13/24 08:13 Dose: 40 mg Documented By: AMANDO Glucose (Glucose Gel 15 Gm Gel..Gram.) 15 gm PO Q15M PRN; Protocol PRN Reason: per Hypoglycemia Standing Ord. Dextrose (D10) 250 mls @ 750 mls/hr IV Q15M PRN; Protocol PRN Reason: per Hypoglycemia Standing Ord. Insulin Human Lispro (Insulin Lispro 100 Unit/Ml 3 Ml Vial) 0 unit SUBCUT QIDACHS [facility]; Protocol Last Admin: 08/13/24 08:13 Dose: 2 unit Documented By: AMANDO Levothyroxine Sodium (Levothyroxine Sodium 112 Mcg Tablet) 112 mcg PO DAILY@0600 [facility] Last Admin: 08/13/24 06:06 Dose: 112 mcg Documented By: LAW Lidocaine (Lidocaine 4 % Patch Adh..Patch) 1 patch TRANSDERMA DAILY PRN PRN Reason: Pain Last Admin: 07/11/24 23:31 Dose: 1 patch Documented By: JOSSUE Nystatin (Nystatin Powder 15 Gm Bottle) 1 appl TOPICAL BID [facility]; Protocol Last Admin: 08/13/24 08:17 Dose: 1 appl Documented By: AMANDO Omeprazole (Omeprazole 20 Mg Capsule.) 20 mg PO BID@0630,1630 [facility] Last Admin: 08/13/24 06:06 Dose: 20 mg Documented By: LAW Prochlorperazine Edisylate (Prochlorperazine Edisylate 10 Mg/2 Ml Vial) 5 mg IVPUSH Q8H PRN PRN Reason: Nausea and Vomiting Last Admin: 08/03/24 01:27 Dose: 5 mg Documented By: JUDD Sodium Chloride (0.9 % Sodium Chloride Flush 3 Ml Syringe) [facility] Last Admin: 08/13/24 08:13 Dose: Not Given Documented By: AMANDO Non-Admin Reason: No Access Vitamin D (Cholecalciferol (Vitamin D3) 25 Mcg Tablet) 50 mcg PO DAILY [facility] Last Admin: 08/13/24 08:13 Dose: 50 mcg Documented By: AMANDO Labs 08/04/24 11:45 08/04/24 11:45 Labs: Laboratory Results - last 24 hr 08/12/24 08/12/24 08/13/24 16:13 20:44 07:36 POC Glucose 152 H 166 H 156 H 08/13/24 11:29 POC Glucose 155 H Assessment and Plan (1) Major neurocognitive disorder: Status: Acute Quality Stroke Does the patient have a stroke diagnosis?: No VTE Prior VTE?: No VTE Risk Level:: Medical - moderate - high VTE Device Contraindication: Treatment Not Indicated VTE Drug Contraindication: N/A - Med Ordered
[2024-08-13 15:45] VITALS: BP 139/73; PULSE 109; RESP 12; TEMP 36.4; O2SAT 95
[2024-08-13 16:44] LABS: Glucose, Whole Blood 183 mg/dL (60-115)
[2024-08-13 20:25] VITALS: BP 119/53; PULSE 84; RESP 18; TEMP 36.6; O2SAT 92
[2024-08-13 20:32] LABS: Glucose, Whole Blood 236 mg/dL (60-115)
[2024-08-13] MEDS: Atorvastatin Calcium 10 MG TABLET PO (20:50)
[2024-08-14] MEDS: Levothyroxine Sodium 112 MCG TABLET PO (05:58)
[2024-08-14] MEDS: Omeprazole 20 MG CAPSULE.DR PO ×2 (05:58→16:58)
[2024-08-14 09:50] LABS: Glucose, Whole Blood 145 mg/dL (60-115)
[2024-08-14] MEDS: Ferrous Sulfate 300 MG/5 ML LIQUID PO (09:50)
[2024-08-14] MEDS: Enoxaparin Sodium 40 MG/0.4 ML SYRINGE SUBCUT (09:50)
[2024-08-14] MEDS: Cholecalciferol (Vitamin D3) 25 MCG TABLET 50 MCG PO (09:50)
[2024-08-14] MEDS: amLODIPine Besylate 5 MG TABLET 10 MG PO (09:50)
[2024-08-14] MEDS: Aspirin 81 MG TAB.CHEW PO (09:50)
[2024-08-14] MEDS: Nystatin Powder 15 GM BOTTLE 1 APPL TOPICAL (09:50)
[2024-08-14] MEDS: FLUoxetine HCl 20 MG CAPSULE 40 MG PO (09:50)
[2024-08-14 11:06] LABS: Glucose, Whole Blood 280 mg/dL (60-115)
[2024-08-14 11:08] VITALS: BP 133/78; PULSE 97; RESP 12; TEMP 36.6; O2SAT 97
[2024-08-14] MEDS: Insulin Lispro 100 UNIT/ML 3 ML VIAL SUBCUT ×3 (12:07→20:52)
--- NOTE | 2024-08-14 13:26 | HO.PM.IMPN ---
Subjective Subjective Date of Service: 08/14/24 Interval History: No acute issues overnight Review of Systems Denies chest pain Denies shortness of breath Denies nausea vomiting diarrhea Denies fever chills Physical Exam Vital Signs: Vital Signs: Last Vital Signs Temp 97.8 F 08/14/24 11:08 Pulse 97 08/14/24 11:08 Resp 12 08/14/24 11:08 BP 133/78 08/14/24 11:08 Pulse Ox 97 08/14/24 11:08 O2 Del Method Room Air 08/14/24 11:08 O2 Flow Rate 2 07/16/24 06:03 BMI result Body Mass Index 24.2 Const: Other: Awake alert no acute distress Resp: Other: Clear to auscultation bilaterally no rales rhonchi or wheeze Cardio: Other: No S4; positive S1-S2; no S3 murmurs rubs or gallops GI: Other: Soft nontender nondistended normoactive bowel sounds Extrem: Other: No edema bilaterally Objective Data Active Medications Acetaminophen (Acetaminophen 325 Mg Tablet) 975 mg PO Q6H PRN PRN Reason: Pain, Mild 1-3,fever,headache Last Admin: 08/06/24 20:18 Dose: 975 mg Documented By: NAHED Amlodipine Besylate (Amlodipine Besylate 5 Mg Tablet) 10 mg PO DAILY [facility]; Protocol Last Admin: 08/14/24 09:50 Dose: 10 mg Documented By: AMANDO Aspirin (Aspirin 81 Mg Tab.Chew) 81 mg PO DAILY [facility] Last Admin: 08/14/24 09:50 Dose: 81 mg Documented By: AMANDO Atorvastatin Calcium (Atorvastatin Calcium 10 Mg Tablet) 10 mg PO BEDTIME [facility] Last Admin: 08/13/24 20:50 Dose: 10 mg Documented By: LADONNA Enoxaparin Sodium (Enoxaparin Sodium 40 Mg/0.4 Ml Syringe) 40 mg SUBCUT Q24H [facility] Last Admin: 08/14/24 09:50 Dose: 40 mg Documented By: AMANDO Ferrous Sulfate (Ferrous Sulfate 300 Mg/5 Ml Liquid) 300 mg PO DAILY [facility] Last Admin: 08/14/24 09:50 Dose: 300 mg Documented By: AMANDO Fluoxetine HCl (Fluoxetine Hcl 20 Mg Capsule) 40 mg PO DAILY [facility] Last Admin: 08/14/24 09:50 Dose: 40 mg Documented By: AMANDO Glucose (Glucose Gel 15 Gm Gel..Gram.) 15 gm PO Q15M PRN; Protocol PRN Reason: per Hypoglycemia Standing Ord. Dextrose (D10) 250 mls @ 750 mls/hr IV Q15M PRN; Protocol PRN Reason: per Hypoglycemia Standing Ord. Insulin Human Lispro (Insulin Lispro 100 Unit/Ml 3 Ml Vial) 0 unit SUBCUT QIDACHS [facility]; Protocol Last Admin: 08/14/24 12:07 Dose: 6 unit Documented By: AMANDO Levothyroxine Sodium (Levothyroxine Sodium 112 Mcg Tablet) 112 mcg PO DAILY@0600 [facility] Last Admin: 08/14/24 05:58 Dose: 112 mcg Documented By: LADONNA Lidocaine (Lidocaine 4 % Patch Adh..Patch) 1 patch TRANSDERMA DAILY PRN PRN Reason: Pain Last Admin: 07/11/24 23:31 Dose: 1 patch Documented By: JOSSUE Nystatin (Nystatin Powder 15 Gm Bottle) 1 appl TOPICAL BID [facility]; Protocol Last Admin: 08/14/24 09:50 Dose: 1 appl Documented By: AMANDO Omeprazole (Omeprazole 20 Mg Capsule.Dr) 20 mg PO BID@0630,1630 [facility] Last Admin: 08/14/24 05:58 Dose: 20 mg Documented By: LADONNA Prochlorperazine Edisylate (Prochlorperazine Edisylate 10 Mg/2 Ml Vial) 5 mg IVPUSH Q8H PRN PRN Reason: Nausea and Vomiting Last Admin: 08/03/24 01:27 Dose: 5 mg Documented By: JUDD Sodium Chloride (0.9 % Sodium Chloride Flush 3 Ml Syringe) [facility] Last Admin: 08/14/24 09:35 Dose: Not Given Documented By: AMANDO Non-Admin Reason: No Access Vitamin D (Cholecalciferol (Vitamin D3) 25 Mcg Tablet) 50 mcg PO DAILY [facility] Last Admin: 08/14/24 09:50 Dose: 50 mcg Documented By: AMANDO Labs 08/04/24 11:45 08/04/24 11:45 Labs: Laboratory Results - last 24 hr 08/13/24 08/13/24 08/14/24 16:39 20:27 09:44 POC Glucose 183 H 236 H 145 H 08/14/24 10:58 POC Glucose 280 H Assessment and Plan (1) Major neurocognitive disorder: Status: Acute Plan 84 y/o F with a past medical history significant for major depressive disorder, HTN, HLD, CAD, IDDM, hypothyroid and GERD, presented to the ED on 07/10/2024 with visual hallucinations, nausea and severe diarrhea and has uti, treated x 7 days,monitored in ED unril 07/19 and admitted d/t gradual decompensation. 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 VTE prophylaxis: [employer] Stroke Does the patient have a stroke diagnosis?: No VTE Prior VTE?: No VTE Risk Level:: Medical - moderate - high VTE Device Contraindication: Treatment Not Indicated VTE Drug Contraindication: N/A - Med Ordered
[2024-08-14 16:12] LABS: Glucose, Whole Blood 215 mg/dL (60-115)
[2024-08-14 16:13] VITALS: BP 133/59; PULSE 101; RESP 20; TEMP 36.3; O2SAT 95
[2024-08-14 19:40] LABS: Glucose, Whole Blood 192 mg/dL (60-115)
[2024-08-14] MEDS: Atorvastatin Calcium 10 MG TABLET PO (20:52)
[2024-08-15] VITALS: BP 121/62; PULSE 82; RESP 18; TEMP 36.3; O2SAT 95
[2024-08-15 07:06] VITALS: BP 151/75; PULSE 91; RESP 18; TEMP 36.2; O2SAT 93
[2024-08-15 07:45] LABS: Glucose, Whole Blood 163 mg/dL (60-115)
[2024-08-15 08:00] VITALS: BP 151/75
[2024-08-15] MEDS: Cholecalciferol (Vitamin D3) 25 MCG TABLET 50 MCG PO (08:00)
[2024-08-15] MEDS: amLODIPine Besylate 5 MG TABLET 10 MG PO (08:00)
[2024-08-15] MEDS: FLUoxetine HCl 20 MG CAPSULE 40 MG PO (08:00)
[2024-08-15] MEDS: Enoxaparin Sodium 40 MG/0.4 ML SYRINGE SUBCUT (08:01)
[2024-08-15] MEDS: Aspirin 81 MG TAB.CHEW PO (08:01)
[2024-08-15] MEDS: Ferrous Sulfate 300 MG/5 ML LIQUID PO (08:01)
[2024-08-15] MEDS: Insulin Lispro 100 UNIT/ML 3 ML VIAL SUBCUT ×3 (08:02→20:15)
[2024-08-15] MEDS: Nystatin Powder 15 GM BOTTLE 1 APPL TOPICAL ×2 (08:07→20:11)
--- NOTE | 2024-08-15 11:28 | MHC.CM.PN ---
Patient awaiting guardianship hearing 08/22. CM will continue to follow.
[2024-08-15 11:29] LABS: Glucose, Whole Blood 213 mg/dL (60-115)
--- NOTE | 2024-08-15 13:29 | P.PNIM_ITS ---
Subjective Subjective Date of Service: 08/15/24 Interval History: No acute issues overnight Review of Systems Denies chest pain Denies shortness of breath Denies nausea vomiting diarrhea Denies fever chills Physical Exam 2 Vital Signs: Vital Signs: Last Vital Signs Temp 97.2 F 08/15/24 07:06 Pulse 91 08/15/24 07:06 Resp 18 08/15/24 07:06 BP 151/75 H 08/15/24 08:00 Pulse Ox 93 08/15/24 07:06 O2 Del Method Room Air 08/15/24 07:06 O2 Flow Rate 2 07/16/24 06:03 BMI result Body Mass Index 24.2 Const: Other: Awake alert no acute distress Resp: Other: Clear to auscultation bilaterally no rales rhonchi or wheeze Cardio: Other: No S4; positive S1-S2; no S3 murmurs rubs or gallops GI: Other: Soft nontender nondistended normoactive bowel sounds Extrem: Other: No edema bilaterally Objective Data Active Medications Acetaminophen (Acetaminophen 325 Mg Tablet) 975 mg PO Q6H PRN PRN Reason: Pain, Mild 1-3,fever,headache Last Admin: 08/06/24 20:18 Dose: 975 mg Documented By: NAHED Amlodipine Besylate (Amlodipine Besylate 5 Mg Tablet) 10 mg PO DAILY [facility]; Protocol Last Admin: 08/15/24 08:00 Dose: 10 mg Documented By: JEANNE Aspirin (Aspirin 81 Mg Tab.Chew) 81 mg PO DAILY [facility] Last Admin: 08/15/24 08:01 Dose: 81 mg Documented By: JEANNE Atorvastatin Calcium (Atorvastatin Calcium 10 Mg Tablet) 10 mg PO BEDTIME [facility] Last Admin: 08/14/24 20:52 Dose: 10 mg Documented By: LAW Enoxaparin Sodium (Enoxaparin Sodium 40 Mg/0.4 Ml Syringe) 40 mg SUBCUT Q24H [facility] Last Admin: 08/15/24 08:01 Dose: 40 mg Documented By: JEANNE Ferrous Sulfate (Ferrous Sulfate 300 Mg/5 Ml Liquid) 300 mg PO DAILY [facility] Last Admin: 08/15/24 08:01 Dose: 300 mg Documented By: JEANNE Fluoxetine HCl (Fluoxetine Hcl 20 Mg Capsule) 40 mg PO DAILY [facility] Last Admin: 08/15/24 08:00 Dose: 40 mg Documented By: JEANNE Glucose (Glucose Gel 15 Gm Gel..Gram.) 15 gm PO Q15M PRN; Protocol PRN Reason: per Hypoglycemia Standing Ord. Dextrose (D10) 250 mls @ 750 mls/hr IV Q15M PRN; Protocol PRN Reason: per Hypoglycemia Standing Ord. Insulin Human Lispro (Insulin Lispro 100 Unit/Ml 3 Ml Vial) 0 unit SUBCUT QIDACHS [facility]; Protocol Last Admin: 08/15/24 12:03 Dose: 4 unit Documented By: JEANNE Levothyroxine Sodium (Levothyroxine Sodium 112 Mcg Tablet) 112 mcg PO DAILY@0600 [facility] Last Admin: 08/15/24 06:00 Dose: Not Given Documented By: LAW Non-Admin Reason: Patient Asleep Lidocaine (Lidocaine 4 % Patch Adh..Patch) 1 patch TRANSDERMA DAILY PRN PRN Reason: Pain Last Admin: 07/11/24 23:31 Dose: 1 patch Documented By: JOSSUE Nystatin (Nystatin Powder 15 Gm Bottle) 1 appl TOPICAL BID [facility]; Protocol Last Admin: 08/15/24 08:07 Dose: 1 appl Documented By: JEANNE Omeprazole (Omeprazole 20 Mg Capsule.Dr) 20 mg PO BID@0630,1630 [facility] Last Admin: 08/15/24 06:00 Dose: Not Given Documented By: LAW Non-Admin Reason: Patient Asleep Prochlorperazine Edisylate (Prochlorperazine Edisylate 10 Mg/2 Ml Vial) 5 mg IVPUSH Q8H PRN PRN Reason: Nausea and Vomiting Last Admin: 08/03/24 01:27 Dose: 5 mg Documented By: JUDD Sodium Chloride (0.9 % Sodium Chloride Flush 3 Ml Syringe) 3 ml IVFLUSH QSHIFT [facility] Last Admin: 08/15/24 11:23 Dose: Not Given Documented By: JEANNE Non-Admin Reason: No Access Vitamin D (Cholecalciferol (Vitamin D3) 25 Mcg Tablet) 50 mcg PO DAILY [facility] Last Admin: 08/15/24 08:00 Dose: 50 mcg Documented By: JEANNE Labs 08/04/24 11:45 08/04/24 11:45 Labs: Laboratory Results - last 24 hr 08/14/24 08/14/24 08/15/24 16:09 19:13 07:11 POC Glucose 215 H 192 H 163 H 08/15/24 11:21 POC Glucose 213 H Assessment and Plan (1) Major neurocognitive disorder: Status: Acute Plan 84 y/o F with a past medical history significant for major depressive disorder, HTN, HLD, CAD, IDDM, hypothyroid and GERD, presented to the ED on 07/10/2024 with visual hallucinations, nausea and severe diarrhea and has uti, treated x 7 days,monitored in ED unril 07/19 and admitted d/t gradual decompensation. 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 VTE prophylaxis: [employer] Stroke Does the patient have a stroke diagnosis?: No VTE Prior VTE?: No VTE Risk Level:: Medical - moderate - high VTE Device Contraindication: Treatment Not Indicated VTE Drug Contraindication: N/A - Med Ordered
[2024-08-15 15:01] VITALS: BP 141/79; PULSE 101; RESP 20; TEMP 37.2; O2SAT 96
[2024-08-15 16:15] LABS: Glucose, Whole Blood 142 mg/dL (60-115)
[2024-08-15] MEDS: Omeprazole 20 MG CAPSULE.DR PO (18:10)
[2024-08-15] MEDS: Atorvastatin Calcium 10 MG TABLET PO (20:11)
[2024-08-15 20:20] LABS: Glucose, Whole Blood 235 mg/dL (60-115)
[2024-08-15 23:51] VITALS: BP 142/67; PULSE 86; RESP 16; TEMP 36.5; O2SAT 95
[2024-08-16] MEDS: Omeprazole 20 MG CAPSULE.DR PO ×2 (05:37→16:56)
[2024-08-16] MEDS: Levothyroxine Sodium 112 MCG TABLET PO (05:37)
[2024-08-16 07:36] VITALS: BP 172/83
[2024-08-16] MEDS: Cholecalciferol (Vitamin D3) 25 MCG TABLET 50 MCG PO (07:36)
[2024-08-16] MEDS: Ferrous Sulfate 300 MG/5 ML LIQUID PO (07:36)
[2024-08-16] MEDS: amLODIPine Besylate 5 MG TABLET 10 MG PO (07:36)
[2024-08-16] MEDS: Enoxaparin Sodium 40 MG/0.4 ML SYRINGE SUBCUT (07:37)
[2024-08-16] MEDS: FLUoxetine HCl 20 MG CAPSULE 40 MG PO (07:37)
[2024-08-16] MEDS: Aspirin 81 MG TAB.CHEW PO (07:37)
[2024-08-16] MEDS: Insulin Lispro 100 UNIT/ML 3 ML VIAL SUBCUT ×2 (07:38→16:57)
[2024-08-16] MEDS: Nystatin Powder 15 GM BOTTLE 1 APPL TOPICAL ×2 (07:38→21:43)
[2024-08-16 07:58] LABS: Glucose, Whole Blood 165 mg/dL (60-115)
[2024-08-16 08:00] VITALS: BP 172/83; PULSE 102; RESP 20; TEMP 37.1; O2SAT 96
--- NOTE | 2024-08-16 11:13 | HO.PM.IMPN ---
Subjective Subjective Date of Service: 08/16/24 Interval History: No acute issues overnight Review of Systems Denies chest pain Denies shortness of breath Denies nausea vomiting diarrhea Denies fever chills Physical Exam Vital Signs: Vital Signs: Last Vital Signs Temp 98.8 F 08/16/24 08:00 Pulse 102 H 08/16/24 08:00 Resp 20 08/16/24 08:00 BP 172/83 H 08/16/24 08:00 Pulse Ox 96 08/16/24 08:00 O2 Del Method Room Air 08/16/24 08:00 O2 Flow Rate 2 07/16/24 06:03 BMI result Body Mass Index 24.2 Const: Other: Awake alert no acute distress Resp: Other: Clear to auscultation bilaterally no rales rhonchi or wheeze Cardio: Other: No S4; positive S1-S2; no S3 murmurs rubs or gallops GI: Other: Soft nontender nondistended normoactive bowel sounds Extrem: Other: No edema bilaterally Objective Data Active Medications Acetaminophen (Acetaminophen 325 Mg Tablet) 975 mg PO Q6H PRN PRN Reason: Pain, Mild 1-3,fever,headache Last Admin: 08/06/24 20:18 Dose: 975 mg Documented By: NAHED Amlodipine Besylate (Amlodipine Besylate 5 Mg Tablet) 10 mg PO DAILY [facility]; Protocol Last Admin: 08/16/24 07:36 Dose: 10 mg Documented By: JEANNE Aspirin (Aspirin 81 Mg Tab.Chew) 81 mg PO DAILY [facility] Last Admin: 08/16/24 07:37 Dose: 81 mg Documented By: JEANNE Atorvastatin Calcium (Atorvastatin Calcium 10 Mg Tablet) 10 mg PO BEDTIME [facility] Last Admin: 08/15/24 20:11 Dose: 10 mg Documented By: NAHED Enoxaparin Sodium (Enoxaparin Sodium 40 Mg/0.4 Ml Syringe) 40 mg SUBCUT Q24H [facility] Last Admin: 08/16/24 07:37 Dose: 40 mg Documented By: JEANNE Ferrous Sulfate (Ferrous Sulfate 300 Mg/5 Ml Liquid) 300 mg PO DAILY [facility] Last Admin: 08/16/24 07:36 Dose: 300 mg Documented By: JEANNE Fluoxetine HCl (Fluoxetine Hcl 20 Mg Capsule) 40 mg PO DAILY [facility] Last Admin: 08/16/24 07:37 Dose: 40 mg Documented By: JEANNE Glucose (Glucose Gel 15 Gm Gel..Gram.) 15 gm PO Q15M PRN; Protocol PRN Reason: per Hypoglycemia Standing Ord. Dextrose (D10) 250 mls @ 750 mls/hr IV Q15M PRN; Protocol PRN Reason: per Hypoglycemia Standing Ord. Insulin Human Lispro (Insulin Lispro 100 Unit/Ml 3 Ml Vial) 0 unit SUBCUT QIDACHS [facility]; Protocol Last Admin: 08/16/24 07:38 Dose: 2 unit Documented By: JEANNE Levothyroxine Sodium (Levothyroxine Sodium 112 Mcg Tablet) 112 mcg PO DAILY@0600 [facility] Last Admin: 08/16/24 05:37 Dose: 112 mcg Documented By: NAHED Lidocaine (Lidocaine 4 % Patch Adh..Patch) 1 patch TRANSDERMA DAILY PRN PRN Reason: Pain Last Admin: 07/11/24 23:31 Dose: 1 patch Documented By: PAMLAMBob Nystatin (Nystatin Powder 15 Gm Bottle) 1 appl TOPICAL BID [facility]; Protocol Last Admin: 08/16/24 07:38 Dose: 1 appl Documented By: JEANNE Omeprazole (Omeprazole 20 Mg Capsule.Dr) 20 mg PO BID@0630,1630 [facility] Last Admin: 08/16/24 05:37 Dose: 20 mg Documented By: NAHED Prochlorperazine Edisylate (Prochlorperazine Edisylate 10 Mg/2 Ml Vial) 5 mg IVPUSH Q8H PRN PRN Reason: Nausea and Vomiting Last Admin: 08/03/24 01:27 Dose: 5 mg Documented By: JUDD Sodium Chloride (0.9 % Sodium Chloride Flush 3 Ml Syringe) [facility] Last Admin: 08/16/24 07:38 Dose: Not Given Documented By: JEANNE Non-Admin Reason: No Access Vitamin D (Cholecalciferol (Vitamin D3) 25 Mcg Tablet) 50 mcg PO DAILY [facility] Last Admin: 08/16/24 07:36 Dose: 50 mcg Documented By: JEANNE Labs 08/04/24 11:45 08/04/24 11:45 Labs: Laboratory Results - last 24 hr 08/15/24 08/15/24 08/15/24 11:21 16:03 20:13 POC Glucose 213 H 142 H 235 H 08/16/24 07:28 POC Glucose 165 H Assessment and Plan (1) Major neurocognitive disorder: Status: Acute Plan 84 y/o F with a past medical history significant for major depressive disorder, HTN, HLD, CAD, IDDM, hypothyroid and GERD, presented to the ED on 07/10/2024 with visual hallucinations, nausea and severe diarrhea and has uti, treated x 7 days,monitored in ED unril 07/19 and admitted d/t gradual decompensation. 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 VTE prophylaxis: [employer] Stroke Does the patient have a stroke diagnosis?: No VTE Prior VTE?: No VTE Risk Level:: Medical - moderate - high VTE Device Contraindication: Treatment Not Indicated VTE Drug Contraindication: N/A - Med Ordered
[2024-08-16 11:35] LABS: Glucose, Whole Blood 145 mg/dL (60-115)
[2024-08-16 15:02] VITALS: BP 122/62; PULSE 94; RESP 20; TEMP 37.1; O2SAT 96
[2024-08-16 16:15] LABS: Glucose, Whole Blood 201 mg/dL (60-115)
[2024-08-16 19:10] VITALS: BP 136/67; PULSE 82; RESP 20; TEMP 36.8; O2SAT 94
[2024-08-16 19:37] LABS: Glucose, Whole Blood 144 mg/dL (60-115)
[2024-08-16] MEDS: Atorvastatin Calcium 10 MG TABLET PO (21:43)
[2024-08-17] VITALS: BP 147/75; PULSE 88; RESP 18; TEMP 36.8; O2SAT 95
[2024-08-17] MEDS: Omeprazole 20 MG CAPSULE.DR PO ×2 (05:45→17:08)
[2024-08-17] MEDS: Levothyroxine Sodium 112 MCG TABLET PO (05:45)
[2024-08-17 07:27] VITALS: BP 141/75; PULSE 92; RESP 20; TEMP 36.4; O2SAT 95
[2024-08-17 07:45] LABS: Glucose, Whole Blood 176 mg/dL (60-115)
[2024-08-17] MEDS: Insulin Lispro 100 UNIT/ML 3 ML VIAL SUBCUT ×4 (07:45→21:14)
[2024-08-17] MEDS: Enoxaparin Sodium 40 MG/0.4 ML SYRINGE SUBCUT (07:54)
[2024-08-17] MEDS: FLUoxetine HCl 20 MG CAPSULE 40 MG PO (07:54)
[2024-08-17] MEDS: amLODIPine Besylate 5 MG TABLET 10 MG PO (07:55)
[2024-08-17] MEDS: Cholecalciferol (Vitamin D3) 25 MCG TABLET 50 MCG PO (07:55)
[2024-08-17] MEDS: Ferrous Sulfate 300 MG/5 ML LIQUID PO (07:55)
[2024-08-17] MEDS: Aspirin 81 MG TAB.CHEW PO (07:55)
[2024-08-17] MEDS: Nystatin Powder 15 GM BOTTLE 1 APPL TOPICAL ×2 (07:55→20:37)
[2024-08-17 08:40] LABS: Hematocrit 41.1 % (37.0-47.0); Hemoglobin 12.3 g/dl (12.0-16.0); Mean Corpuscular HGB Conc 29.9 g/dl (31.0-35.0); Mean Corpuscular Hemoglobin 22.6 pg (27.0-33.0); Mean Corpuscular Volume 75.6 fL (80.0-98.0); Mean Platelet Volume 9.8 fL (9.4-12.3); Platelet Count 825 X10*3/uL (160-400); Red Blood Count 5.44 X10*6/uL (4.20-5.50); Red Cell Distribution Width 19.1 % (11.0-16.0); White Blood Count 10.7 X10*3/uL (4.8-10.8)
[2024-08-17 09:06] LABS: Anion Gap 13 (12-20); Blood Urea Nitrogen 19 mg/dL (9-16); Calcium 9.7 mg/dL (8.4-10.2); Carbon Dioxide 25 mmol/L (22-29); Chloride 102 mmol/L (96-108); Creatinine Clr Calc Pharmacy 49.6; Estimated Glomerular Filt Rate > 60; Glucose Random 174 mg/dL (60-115); Potassium 4.1 mmol/L (3.3-5.1); Sodium 136 mmol/L (135-145)
[2024-08-17 09:33] LABS: Vitamin B12 340 pg/mL (200-900)
[2024-08-17 11:33] LABS: Glucose, Whole Blood 189 mg/dL (60-115)
--- NOTE | 2024-08-17 12:55 | P.PNIM_ITS ---
Subjective Subjective Date of Service: 08/17/24 Interval History: no complaints Physical Exam 2 Vital Signs: Vital Signs: Last Vital Signs Temp 97.5 F 08/17/24 07:27 Pulse 92 08/17/24 07:27 Resp 20 08/17/24 07:27 BP 141/75 H 08/17/24 07:27 Pulse Ox 95 08/17/24 07:27 O2 Del Method Room Air 08/17/24 07:27 O2 Flow Rate 2 07/16/24 06:03 BMI result Body Mass Index 24.2 Gen: in no acute distress HEENT: sclera anicteric, moist mucus membranes Neck: supple Lungs: clear to auscultation bilaterally Heart: regular rate and rhythm, no murmurs Abd: soft, non-tender, non-distended Ext: no edema Skin: warm/well-perfused Neuro: alert and oriented to self and place, moving all extremities Psych: appropriate affect Objective Data Active Medications Acetaminophen (Acetaminophen 325 Mg Tablet) 975 mg PO Q6H PRN PRN Reason: Pain, Mild 1-3,fever,headache Last Admin: 08/06/24 20:18 Dose: 975 mg Documented By: NAHED Amlodipine Besylate (Amlodipine Besylate 5 Mg Tablet) 10 mg PO DAILY [facility]; Protocol Last Admin: 08/17/24 07:55 Dose: 10 mg Documented By: JEANNE Aspirin (Aspirin 81 Mg Tab.Chew) 81 mg PO DAILY [facility] Last Admin: 08/17/24 07:55 Dose: 81 mg Documented By: JEANNE Atorvastatin Calcium (Atorvastatin Calcium 10 Mg Tablet) 10 mg PO BEDTIME [facility] Last Admin: 08/16/24 21:43 Dose: 10 mg Documented By: VERA Dextrose (Dextrose 50 % 25 Gm/50 Ml Syringe) 25 gm IVPUSH Q15M PRN PRN Reason: HYPOGLYCEMIA STANDING PROTOCOL Enoxaparin Sodium (Enoxaparin Sodium 40 Mg/0.4 Ml Syringe) 40 mg SUBCUT Q24H [facility] Last Admin: 08/17/24 07:54 Dose: 40 mg Documented By: JEANNE Ferrous Sulfate (Ferrous Sulfate 300 Mg/5 Ml Liquid) 300 mg PO DAILY [facility] Last Admin: 08/17/24 07:55 Dose: 300 mg Documented By: JEANNE Fluoxetine HCl (Fluoxetine Hcl 20 Mg Capsule) 40 mg PO DAILY [facility] Last Admin: 08/17/24 07:54 Dose: 40 mg Documented By: JEANNE Glucose (Glucose Gel 15 Gm Gel..Gram.) 15 gm PO Q15M PRN; Protocol PRN Reason: per Hypoglycemia Standing Ord. Insulin Human Lispro (Insulin Lispro 100 Unit/Ml 3 Ml Vial) 0 unit SUBCUT QIDACHS [facility]; Protocol Last Admin: 08/17/24 11:42 Dose: 2 unit Documented By: LEROY Levothyroxine Sodium (Levothyroxine Sodium 100 Mcg Tablet) 100 mcg PO DAILY@0600 [facility] Lidocaine (Lidocaine 4 % Patch Adh..Patch) 1 patch TRANSDERMA DAILY PRN PRN Reason: Pain Last Admin: 07/11/24 23:31 Dose: 1 patch Documented By: JOSSUE Nystatin (Nystatin Powder 15 Gm Bottle) 1 appl TOPICAL BID [facility]; Protocol Last Admin: 08/17/24 07:55 Dose: 1 appl Documented By: JEANNE Omeprazole (Omeprazole 20 Mg Capsule.) 20 mg PO BID@0630,1630 [facility] Last Admin: 08/17/24 05:45 Dose: 20 mg Documented By: VERA Prochlorperazine Edisylate (Prochlorperazine Edisylate 10 Mg/2 Ml Vial) 5 mg IVPUSH Q8H PRN PRN Reason: Nausea and Vomiting Last Admin: 08/03/24 01:27 Dose: 5 mg Documented By: KIESHA-PASCALE Sodium Chloride (0.9 % Sodium Chloride Flush 3 Ml Syringe) 3 ml IVFLUSH QSHIFT [facility] Last Admin: 08/17/24 07:55 Dose: Not Given Documented By: JEANNE Non-Admin Reason: No Access Vitamin D (Cholecalciferol (Vitamin D3) 25 Mcg Tablet) 50 mcg PO DAILY [facility] Last Admin: 08/17/24 07:55 Dose: 50 mcg Documented By: JEANNE Labs 08/17/24 08:09 08/17/24 08:09 Labs: Laboratory Results - last 24 hr 08/16/24 08/16/24 08/17/24 16:07 19:13 07:30 MCV MCH MCHC RDW Plt Count MPV Absolute Nucleated RBC Nucleated RBC % (auto) Anion Gap Estim Creat Clear Calc Estimated GFR POC Glucose 201 H 144 H 176 H Random Glucose Calcium Vitamin B12 Folate 08/17/24 08/17/24 08:09 11:27 MCV 75.6 L MCH 22.6 L MCHC 29.9 L RDW 19.1 H Plt Count 825 H D MPV 9.8 Absolute Nucleated RBC 0.000 Nucleated RBC % (auto) 0.0 Anion Gap 13 Estim Creat Clear Calc 49.6 Estimated GFR > 60 POC Glucose 189 H Random Glucose 174 H Calcium 9.7 D Vitamin B12 340 Folate 4.0 Assessment and Plan (1) Major neurocognitive disorder: Status: Acute Plan d24 for 84yo F with MDD, HTN, HLD, CAD, DM2, hypothyroidism, GERD presented to ED 07/10/24 with visual hallucinations, nausea, and diarrhea treated for UTI while awaiting placement admitted to Medicine 07/19 for decompensation AMS, multifactorial likely underlying cognitive impairment + UTI (treated) - CT negative, TSH a little over-suppressed, B12 normal; per Psychiatry, no capacity; d/c'ed olanzapine; awaiting guardianship - Pt expressed SI 07/27/24 and sitter was placed; CARE Team consult UTI - completed thrombocytosis - per Hematology recommends JAK2 testing on outatient basis [?myeloproliferative disorder such as essential thrombocytosis] diarrhea - resolved AMAURY - resolved gout L wrist, resolved - recent episode of gout on 07/21/2024, treated with colchicine x3 doses and no pain or swelling at this time HTN - continue amlodipine HLD/CAD - continue atorvastatin and ASA DM2 - hold Lantus, continue correction-dose lispro, check A1c hypothyroidism - continue LT4 but at lower dose of 100 mcg/d due to over-suppression of TSH; recheck TSH in 4 wk GERD - PPI mood disorder - fluoxetine VTE ppx - enoxaparin dispo - awaiting guardianship then LTC Total time managing care of this patient today: 35 minutes. Quality Stroke Does the patient have a stroke diagnosis?: No VTE Prior VTE?: No VTE Risk Level:: Medical - moderate - high VTE Device Contraindication: Treatment Not Indicated VTE Drug Contraindication: N/A - Med Ordered
[2024-08-17 14:03] LABS: Estimated Average Glucose 148 mg/dL; Hemoglobin A1C 165.4228 umol/L; Hemoglobin A1c % 6.8 % (<6.0); Total Hemoglobin (HGBA1C) 3251.1365 umol/L
--- NOTE | 2024-08-17 14:54 | MHC.CM.PN ---
PT IS AWAITING GUARDIANSHIP HEARING/WADDELL ORDER SCHEDULED FOR 2/3. AT 3:30 PM. CM CONTINUES TO FOLLOW.
[2024-08-17 15:07] VITALS: BP 128/64; PULSE 90; RESP 18; TEMP 36.6; O2SAT 94
[2024-08-17 16:07] LABS: Glucose, Whole Blood 187 mg/dL (60-115)
[2024-08-17] MEDS: Atorvastatin Calcium 10 MG TABLET PO (20:36)
[2024-08-17 20:59] LABS: Glucose, Whole Blood 265 mg/dL (60-115)
[2024-08-17 23:02] VITALS: BP 119/77; PULSE 83; RESP 18; TEMP 36.6; O2SAT 96
[2024-08-18] MEDS: Omeprazole 20 MG CAPSULE.DR PO ×2 (06:21→16:23)
[2024-08-18] MEDS: Levothyroxine Sodium 100 MCG TABLET PO (06:21)
[2024-08-18 07:08] VITALS: BP 135/63; PULSE 87; RESP 18; TEMP 36.3; O2SAT 95
[2024-08-18] MEDS: Insulin Lispro 100 UNIT/ML 3 ML VIAL SUBCUT ×4 (07:38→20:51)
[2024-08-18 07:42] LABS: Glucose, Whole Blood 161 mg/dL (60-115)
[2024-08-18 08:01] VITALS: BP 135/63
[2024-08-18] MEDS: amLODIPine Besylate 5 MG TABLET 10 MG PO (08:01)
[2024-08-18] MEDS: Aspirin 81 MG TAB.CHEW PO (08:01)
[2024-08-18] MEDS: Cholecalciferol (Vitamin D3) 25 MCG TABLET 50 MCG PO (08:02)
[2024-08-18] MEDS: FLUoxetine HCl 20 MG CAPSULE 40 MG PO (08:02)
[2024-08-18] MEDS: Ferrous Sulfate 300 MG/5 ML LIQUID PO (08:02)
[2024-08-18] MEDS: Enoxaparin Sodium 40 MG/0.4 ML SYRINGE SUBCUT (08:02)
[2024-08-18] MEDS: Nystatin Powder 15 GM BOTTLE 1 APPL TOPICAL ×2 (08:03→20:52)
[2024-08-18 11:18] LABS: Glucose, Whole Blood 163 mg/dL (60-115)
--- NOTE | 2024-08-18 13:01 | P.PNIM_ITS ---
Subjective Subjective Date of Service: 08/18/24 Interval History: no complaints Review of Systems Review of Systems: Yes all other systems are reviewed and are negative Physical Exam 2 Vital Signs: Vital Signs: Last Vital Signs Temp 97.4 F 08/18/24 07:08 Pulse 87 08/18/24 07:08 Resp 18 08/18/24 07:08 BP 135/63 08/18/24 08:01 Pulse Ox 95 08/18/24 07:08 O2 Del Method Room Air 08/18/24 07:08 O2 Flow Rate 2 07/16/24 06:03 BMI result Body Mass Index 24.2 Gen: in no acute distress HEENT: sclera anicteric, moist mucus membranes Neck: supple Lungs: clear to auscultation bilaterally Heart: regular rate and rhythm, no murmurs Abd: soft, non-tender, non-distended Ext: no edema Skin: warm/well-perfused Neuro: alert and oriented to self and place, moving all extremities Psych: appropriate affect Objective Data Active Medications Acetaminophen (Acetaminophen 325 Mg Tablet) 975 mg PO Q6H PRN PRN Reason: Pain, Mild 1-3,fever,headache Last Admin: 08/06/24 20:18 Dose: 975 mg Documented By: NAHED Amlodipine Besylate (Amlodipine Besylate 5 Mg Tablet) 10 mg PO DAILY [facility]; Protocol Last Admin: 08/18/24 08:01 Dose: 10 mg Documented By: JEANNE Aspirin (Aspirin 81 Mg Tab.Chew) 81 mg PO DAILY [facility] Last Admin: 08/18/24 08:01 Dose: 81 mg Documented By: JEANNE Atorvastatin Calcium (Atorvastatin Calcium 10 Mg Tablet) 10 mg PO BEDTIME [facility] Last Admin: 08/17/24 20:36 Dose: 10 mg Documented By: ANATOLY Dextrose (Dextrose 50 % 25 Gm/50 Ml Syringe) 25 gm IVPUSH Q15M PRN PRN Reason: HYPOGLYCEMIA STANDING PROTOCOL Enoxaparin Sodium (Enoxaparin Sodium 40 Mg/0.4 Ml Syringe) 40 mg SUBCUT Q24H [facility] Last Admin: 08/18/24 08:02 Dose: 40 mg Documented By: JEANNE Ferrous Sulfate (Ferrous Sulfate 300 Mg/5 Ml Liquid) 300 mg PO DAILY [facility] Last Admin: 08/18/24 08:02 Dose: 300 mg Documented By: JEANNE Fluoxetine HCl (Fluoxetine Hcl 20 Mg Capsule) 40 mg PO DAILY [facility] Last Admin: 08/18/24 08:02 Dose: 40 mg Documented By: JEANNE Glucose (Glucose Gel 15 Gm Gel..Gram.) 15 gm PO Q15M PRN; Protocol PRN Reason: per Hypoglycemia Standing Ord. Insulin Human Lispro (Insulin Lispro 100 Unit/Ml 3 Ml Vial) 0 unit SUBCUT QIDACHS [facility]; Protocol Last Admin: 08/18/24 11:28 Dose: 2 unit Documented By: JEANNE Levothyroxine Sodium (Levothyroxine Sodium 100 Mcg Tablet) 100 mcg PO DAILY@0600 [facility] Last Admin: 08/18/24 06:21 Dose: 100 mcg Documented By: ANATOLY Lidocaine (Lidocaine 4 % Patch Adh..Patch) 1 patch TRANSDERMA DAILY PRN PRN Reason: Pain Last Admin: 07/11/24 23:31 Dose: 1 patch Documented By: PAMLAMBob Nystatin (Nystatin Powder 15 Gm Bottle) 1 appl TOPICAL BID [facility]; Protocol Last Admin: 08/18/24 08:03 Dose: 1 appl Documented By: JEANNE Omeprazole (Omeprazole 20 Mg Capsule.Dr) 20 mg PO BID@0630,1630 [facility] Last Admin: 08/18/24 06:21 Dose: 20 mg Documented By: ANATOLY Prochlorperazine Edisylate (Prochlorperazine Edisylate 10 Mg/2 Ml Vial) 5 mg IVPUSH Q8H PRN PRN Reason: Nausea and Vomiting Last Admin: 08/03/24 01:27 Dose: 5 mg Documented By: JUDD Sodium Chloride (0.9 % Sodium Chloride Flush 3 Ml Syringe) 3 ml IVFLUSH QSHIFT [facility] Last Admin: 08/18/24 07:37 Dose: Not Given Documented By: JEANNE Non-Admin Reason: No Insulin Coverage Vitamin D (Cholecalciferol (Vitamin D3) 25 Mcg Tablet) 50 mcg PO DAILY [facility] Last Admin: 08/18/24 08:02 Dose: 50 mcg Documented By: JEANNE Labs 08/17/24 08:09 08/17/24 08:09 Labs: Laboratory Results - last 24 hr 08/17/24 08/17/2408/17/25 08:09 16:02 20:54 POC Glucose 187 H 265 H Estimat Average Glucose 148 Hemoglobin A1c % 6.8 H 08/18/24 08/18/24 07:11 11:12 POC Glucose 161 H 163 H Estimat Average Glucose Hemoglobin A1c % Assessment and Plan (1) Major neurocognitive disorder: Status: Acute Plan d25 for 84yo F with MDD, HTN, HLD, CAD, DM2, hypothyroidism, GERD presented to ED 07/10/24 with visual hallucinations, nausea, and diarrhea treated for UTI while awaiting placement admitted to Medicine 07/19 for decompensation AMS, multifactorial likely underlying cognitive impairment + UTI (treated) - CT negative, TSH a little over-suppressed, B12 normal; per Psychiatry, no capacity; d/c'ed olanzapine; awaiting guardianship - Pt expressed SI 07/27/24 and sitter was placed; CARE Team consult UTI - completed thrombocytosis - per Hematology recommends JAK2 testing on outatient basis [?myeloproliferative disorder such as essential thrombocytosis] diarrhea - resolved AMAURY - resolved gout L wrist, resolved - recent episode of gout on 07/21/2024, treated with colchicine x3 doses and no pain or swelling at this time HTN - continue amlodipine HLD/CAD - continue atorvastatin and ASA DM2, well-controlled - hold Lantus, continue correction-dose lispro, A1c 6.8 hypothyroidism - continue LT4 but on 08/17 lowered dose to 100 mcg/d due to over-suppression of TSH; recheck TSH in 4 wk GERD - PPI mood disorder - fluoxetine VTE ppx - enoxaparin dispo - awaiting guardianship then LTC Total time managing care of this patient today: 35 minutes. Quality Stroke Does the patient have a stroke diagnosis?: No VTE Prior VTE?: No VTE Risk Level:: Medical - moderate - high VTE Device Contraindication: Treatment Not Indicated VTE Drug Contraindication: N/A - Med Ordered
[2024-08-18 15:33] VITALS: BP 144/66; PULSE 83; RESP 18; TEMP 36.9; O2SAT 95
[2024-08-18 16:15] LABS: Glucose, Whole Blood 156 mg/dL (60-115)
[2024-08-18 20:29] LABS: Glucose, Whole Blood 233 mg/dL (60-115)
[2024-08-18] MEDS: Atorvastatin Calcium 10 MG TABLET PO (20:51)
[2024-08-18 23:05] VITALS: BP 140/68; PULSE 80; RESP 18; TEMP 36.7; O2SAT 96
[2024-08-19] MEDS: Omeprazole 20 MG CAPSULE.DR PO ×2 (05:32→15:26)
[2024-08-19] MEDS: Levothyroxine Sodium 100 MCG TABLET PO (05:32)
[2024-08-19 07:52] VITALS: BP 156/72; PULSE 100; RESP 18; TEMP 36.4; O2SAT 95
[2024-08-19 08:01] LABS: Glucose, Whole Blood 166 mg/dL (60-115)
[2024-08-19] MEDS: Enoxaparin Sodium 40 MG/0.4 ML SYRINGE SUBCUT (08:14)
[2024-08-19] MEDS: Insulin Lispro 100 UNIT/ML 3 ML VIAL SUBCUT ×4 (08:14→20:34)
[2024-08-19] MEDS: Ferrous Sulfate 300 MG/5 ML LIQUID PO (08:14)
[2024-08-19] MEDS: FLUoxetine HCl 20 MG CAPSULE 40 MG PO (08:15)
[2024-08-19] MEDS: Aspirin 81 MG TAB.CHEW PO (08:15)
[2024-08-19] MEDS: amLODIPine Besylate 5 MG TABLET 10 MG PO (08:15)
[2024-08-19] MEDS: Cholecalciferol (Vitamin D3) 25 MCG TABLET 50 MCG PO (08:15)
[2024-08-19] MEDS: Nystatin Powder 15 GM BOTTLE 1 APPL TOPICAL ×2 (08:17→20:02)
--- NOTE | 2024-08-19 09:51 | P.PNIM_ITS ---
Subjective Subjective Date of Service: 08/19/24 Interval History: No complaint, other than wanting to go back to her apparment Physical Exam 2 Vital Signs: Vital Signs: Last Vital Signs Temp 97.6 F 08/19/24 07:52 Pulse 100 08/19/24 07:52 Resp 18 08/19/24 07:52 BP 156/72 H 08/19/24 07:52 Pulse Ox 95 08/19/24 07:52 O2 Del Method Room Air 08/19/24 07:52 O2 Flow Rate 2 07/16/24 06:03 BMI result Body Mass Index 24.2 Const: Other: Gen: in no acute distress HEENT: sclera anicteric, moist mucus membranes Neck: supple Lungs: clear to auscultation bilaterally Heart: regular rate and rhythm, no murmurs Abd: soft, non-tender, non-distended Ext: no edema Skin: warm/well-perfused Neuro: alert and oriented to self and place, moving all extremities Psych: appropriate affect Objective Data Active Medications Acetaminophen (Acetaminophen 325 Mg Tablet) 975 mg PO Q6H PRN PRN Reason: Pain, Mild 1-3,fever,headache Last Admin: 08/06/24 20:18 Dose: 975 mg Documented By: NAHED Amlodipine Besylate (Amlodipine Besylate 5 Mg Tablet) 10 mg PO DAILY [facility]; Protocol Last Admin: 08/19/24 08:15 Dose: 10 mg Documented By: FAY Aspirin (Aspirin 81 Mg Tab.Chew) 81 mg PO DAILY [facility] Last Admin: 08/19/24 08:15 Dose: 81 mg Documented By: FAY Atorvastatin Calcium (Atorvastatin Calcium 10 Mg Tablet) 10 mg PO BEDTIME [facility] Last Admin: 08/18/24 20:51 Dose: 10 mg Documented By: BARNEY Dextrose (Dextrose 50 % 25 Gm/50 Ml Syringe) 25 gm IVPUSH Q15M PRN PRN Reason: HYPOGLYCEMIA STANDING PROTOCOL Enoxaparin Sodium (Enoxaparin Sodium 40 Mg/0.4 Ml Syringe) 40 mg SUBCUT Q24H [facility] Last Admin: 08/19/24 08:14 Dose: 40 mg Documented By: FAY Ferrous Sulfate (Ferrous Sulfate 300 Mg/5 Ml Liquid) 300 mg PO DAILY [facility] Last Admin: 08/19/24 08:14 Dose: 300 mg Documented By: FAY Fluoxetine HCl (Fluoxetine Hcl 20 Mg Capsule) 40 mg PO DAILY [facility] Last Admin: 08/19/24 08:15 Dose: 40 mg Documented By: FAY Glucose (Glucose Gel 15 Gm Gel..Gram.) 15 gm PO Q15M PRN; Protocol PRN Reason: per Hypoglycemia Standing Ord. Insulin Human Lispro (Insulin Lispro 100 Unit/Ml 3 Ml Vial) 0 unit SUBCUT QIDACHS [facility]; Protocol Last Admin: 08/19/24 08:14 Dose: 2 unit Documented By: FAY Levothyroxine Sodium (Levothyroxine Sodium 100 Mcg Tablet) 100 mcg PO DAILY@0600 [facility] Last Admin: 08/19/24 05:32 Dose: 100 mcg Documented By: BARNEY Lidocaine (Lidocaine 4 % Patch Adh..Patch) 1 patch TRANSDERMA DAILY PRN PRN Reason: Pain Last Admin: 07/11/24 23:31 Dose: 1 patch Documented By: JOSSUE Nystatin (Nystatin Powder 15 Gm Bottle) 1 appl TOPICAL BID [facility]; Protocol Last Admin: 08/19/24 08:17 Dose: 1 appl Documented By: FAY Omeprazole (Omeprazole 20 Mg Capsule.) 20 mg PO BID@0630,1630 [facility] Last Admin: 08/19/24 05:32 Dose: 20 mg Documented By: BARNEY Prochlorperazine Edisylate (Prochlorperazine Edisylate 10 Mg/2 Ml Vial) 5 mg IVPUSH Q8H PRN PRN Reason: Nausea and Vomiting Last Admin: 08/03/24 01:27 Dose: 5 mg Documented By: JUDD Sodium Chloride (0.9 % Sodium Chloride Flush 3 Ml Syringe) [facility] Last Admin: 08/19/24 08:14 Dose: Not Given Documented By: FAY Non-Admin Reason: No Access Vitamin D (Cholecalciferol (Vitamin D3) 25 Mcg Tablet) 50 mcg PO DAILY [facility] Last Admin: 08/19/24 08:15 Dose: 50 mcg Documented By: FAY Labs 08/17/24 08:09 08/17/24 08:09 Labs: Laboratory Results - last 24 hr 08/18/24 08/18/24 08/18/24 11:12 16:10 20:20 POC Glucose 163 H 156 H 233 H 08/19/24 07:55 POC Glucose 166 H Assessment and Plan (1) Major neurocognitive disorder: Status: Acute Plan d26 for 84yo F with MDD, HTN, HLD, CAD, DM2, hypothyroidism, GERD presented to ED 07/10/24 with visual hallucinations, nausea, and diarrhea treated for UTI while awaiting placement admitted to Medicine 07/19 for decompensation AMS, multifactorial likely underlying cognitive impairment + UTI (treated) - CT negative, TSH a little over-suppressed, B12 normal; per Psychiatry, no capacity; d/c'ed olanzapine; awaiting guardianship - Pt expressed SI 07/27/24 and sitter was placed; CARE Team consult UTI - completed treatment thrombocytosis - per Hematology recommends JAK2 testing on outatient basis [?myeloproliferative disorder such as essential thrombocytosis] diarrhea - resolved AMAURY - resolved gout L wrist, resolved - recent episode of gout on 07/21/2024, treated with colchicine x3 doses and no pain or swelling at this time HTN - continue amlodipine HLD/CAD - continue atorvastatin and ASA DM2, well-controlled - hold Lantus, continue correction-dose lispro, A1c 6.8 hypothyroidism - continue LT4 but on 08/17 lowered dose to 100 mcg/d due to over-suppression of TSH; recheck TSH in 4 wk GERD - PPI mood disorder - fluoxetine VTE ppx - enoxaparin dispo - awaiting guardianship then LTC Total time managing care of this patient today: 35 minutes. Quality Stroke Does the patient have a stroke diagnosis?: No VTE Prior VTE?: No VTE Risk Level:: Medical - moderate - high VTE Device Contraindication: Treatment Not Indicated VTE Drug Contraindication: N/A - Med Ordered
--- NOTE | 2024-08-19 10:49 | MHC.CM.PN ---
Patient awaiting guardianship hearing 08/22. CM will continue to follow.
[2024-08-19 11:36] LABS: Glucose, Whole Blood 218 mg/dL (60-115)
[2024-08-19] MEDS: 0.9 % Sodium Chloride Flush 3 ML SYRINGE IVFLUSH (15:26)
[2024-08-19 15:39] VITALS: BP 134/62; PULSE 84; RESP 14; TEMP 37.2; O2SAT 94
[2024-08-19 16:09] LABS: Glucose, Whole Blood 175 mg/dL (60-115)
[2024-08-19 17:10] VITALS: TEMP 36.9
[2024-08-19] MEDS: Atorvastatin Calcium 10 MG TABLET PO (20:02)
[2024-08-19 20:31] LABS: Glucose, Whole Blood 242 mg/dL (60-115)
[2024-08-19 23:29] VITALS: BP 135/66; PULSE 77; RESP 18; TEMP 36.8; O2SAT 95
[2024-08-20 03:57] VITALS: BP 147/70; PULSE 80; RESP 18; TEMP 36.9; O2SAT 95
[2024-08-20] MEDS: Omeprazole 20 MG CAPSULE.DR PO ×2 (05:43→16:28)
[2024-08-20] MEDS: Levothyroxine Sodium 100 MCG TABLET PO (05:43)
[2024-08-20 07:19] VITALS: BP 145/86; PULSE 83; RESP 18; TEMP 36.6; O2SAT 96
[2024-08-20 07:28] LABS: Glucose, Whole Blood 158 mg/dL (60-115)
[2024-08-20] MEDS: Insulin Lispro 100 UNIT/ML 3 ML VIAL SUBCUT ×4 (07:47→20:43)
[2024-08-20] MEDS: Cholecalciferol (Vitamin D3) 25 MCG TABLET 50 MCG PO (07:59)
[2024-08-20] MEDS: amLODIPine Besylate 5 MG TABLET 10 MG PO (07:59)
[2024-08-20] MEDS: FLUoxetine HCl 20 MG CAPSULE 40 MG PO (07:59)
[2024-08-20] MEDS: Aspirin 81 MG TAB.CHEW PO (07:59)
[2024-08-20] MEDS: Ferrous Sulfate 300 MG/5 ML LIQUID PO (08:00)
[2024-08-20] MEDS: Enoxaparin Sodium 40 MG/0.4 ML SYRINGE SUBCUT (08:00)
--- NOTE | 2024-08-20 09:18 | P.PNIM_ITS ---
Subjective Subjective Date of Service: 08/20/24 Interval History: She wants to go home Physical Exam 2 Vital Signs: Vital Signs: Last Vital Signs Temp 97.8 F 08/20/24 07:19 Pulse 83 08/20/24 07:19 Resp 18 08/20/24 07:19 BP 145/86 H 08/20/24 07:19 Pulse Ox 96 08/20/24 07:19 O2 Del Method Room Air 08/20/24 07:19 O2 Flow Rate 2 07/16/24 06:03 BMI result Body Mass Index 24.2 Const: Other: Gen: in no acute distress HEENT: sclera anicteric, moist mucus membranes Neck: supple Lungs: clear to auscultation bilaterally Heart: regular rate and rhythm, no murmurs Abd: soft, non-tender, non-distended Ext: no edema Skin: warm/well-perfused Neuro: alert and oriented to self and place, moving all extremities Psych: appropriate affect Objective Data Active Medications Acetaminophen (Acetaminophen 325 Mg Tablet) 975 mg PO Q6H PRN PRN Reason: Pain, Mild 1-3,fever,headache Last Admin: 08/06/24 20:18 Dose: 975 mg Documented By: NAHED Amlodipine Besylate (Amlodipine Besylate 5 Mg Tablet) 10 mg PO DAILY [facility]; Protocol Last Admin: 08/20/24 07:59 Dose: 10 mg Documented By: GISSELLE Aspirin (Aspirin 81 Mg Tab.Chew) 81 mg PO DAILY [facility] Last Admin: 08/20/24 07:59 Dose: 81 mg Documented By: GISSELLE Atorvastatin Calcium (Atorvastatin Calcium 10 Mg Tablet) 10 mg PO BEDTIME [facility] Last Admin: 08/19/24 20:02 Dose: 10 mg Documented By: NAHED Dextrose (Dextrose 50 % 25 Gm/50 Ml Syringe) 25 gm IVPUSH Q15M PRN PRN Reason: HYPOGLYCEMIA STANDING PROTOCOL Enoxaparin Sodium (Enoxaparin Sodium 40 Mg/0.4 Ml Syringe) 40 mg SUBCUT Q24H [facility] Last Admin: 08/20/24 08:00 Dose: 40 mg Documented By: GISSELLE Ferrous Sulfate (Ferrous Sulfate 300 Mg/5 Ml Liquid) 300 mg PO DAILY [facility] Last Admin: 08/20/24 08:00 Dose: 300 mg Documented By: GISSELLE Fluoxetine HCl (Fluoxetine Hcl 20 Mg Capsule) 40 mg PO DAILY [facility] Last Admin: 08/20/24 07:59 Dose: 40 mg Documented By: GISSELLE Glucose (Glucose Gel 15 Gm Gel..Gram.) 15 gm PO Q15M PRN; Protocol PRN Reason: per Hypoglycemia Standing Ord. Insulin Human Lispro (Insulin Lispro 100 Unit/Ml 3 Ml Vial) 0 unit SUBCUT QIDACHS [facility]; Protocol Last Admin: 08/20/24 07:47 Dose: 2 unit Documented By: GISSELLE Levothyroxine Sodium (Levothyroxine Sodium 100 Mcg Tablet) 100 mcg PO DAILY@0600 [facility] Last Admin: 08/20/24 05:43 Dose: 100 mcg Documented By: NAHED Lidocaine (Lidocaine 4 % Patch Adh..Patch) 1 patch TRANSDERMA DAILY PRN PRN Reason: Pain Last Admin: 07/11/24 23:31 Dose: 1 patch Documented By: JOSSUE Omeprazole (Omeprazole 20 Mg Capsule.) 20 mg PO BID@0630,1630 [facility] Last Admin: 08/20/24 05:43 Dose: 20 mg Documented By: NAHED Vitamin D (Cholecalciferol (Vitamin D3) 25 Mcg Tablet) 50 mcg PO DAILY [facility] Last Admin: 08/20/24 07:59 Dose: 50 mcg Documented By: GISSELLE Labs 08/17/24 08:09 08/17/24 08:09 Labs: Laboratory Results - last 24 hr 08/19/24 08/19/24 08/19/24 11:32 16:04 20:26 POC Glucose 218 H 175 H 242 H 08/20/24 07:21 POC Glucose 158 H Assessment and Plan (1) Major neurocognitive disorder: Status: Acute Plan d27 for 84yo F with MDD, HTN, HLD, CAD, DM2, hypothyroidism, GERD presented to ED 07/10/24 with visual hallucinations, nausea, and diarrhea treated for UTI while awaiting placement admitted to Medicine 07/19 for decompensation AMS, multifactorial likely underlying cognitive impairment + UTI (completed treatment) - CT negative, TSH a little over-suppressed, B12 normal; per Psychiatry, no capacity; d/c'ed olanzapine; awaiting guardianship - Pt expressed SI 07/27/24 and sitter was placed; CARE Team consult UTI - completed treatment thrombocytosis - per Hematology recommends JAK2 testing on outatient basis [?myeloproliferative disorder such as essential thrombocytosis] diarrhea - resolved AMAURY - resolved gout L wrist, resolved - recent episode of gout on 07/21/2024, treated with colchicine x3 doses and no pain or swelling at this time HTN - continue amlodipine HLD/CAD - continue atorvastatin and ASA DM2, well-controlled - hold Lantus, continue correction-dose lispro, A1c 6.8 hypothyroidism - continue LT4 but on 08/17 lowered dose to 100 mcg/d due to over-suppression of TSH; recheck TSH in 4 wk GERD - PPI mood disorder - fluoxetine VTE ppx - enoxaparin dispo - awaiting guardianship then LTC periodic lab check, last check 08/17, cbc, bmp ok Total time managing care of this patient today: 35 minutes. Quality Stroke Does the patient have a stroke diagnosis?: No VTE Prior VTE?: No VTE Risk Level:: Medical - moderate - high VTE Device Contraindication: Treatment Not Indicated VTE Drug Contraindication: N/A - Med Ordered
[2024-08-20 11:44] LABS: Glucose, Whole Blood 157 mg/dL (60-115)
[2024-08-20 15:06] VITALS: BP 127/58; PULSE 83; RESP 18; TEMP 36.7; O2SAT 95
--- NOTE | 2024-08-20 16:10 | PC.NURSE ---
Pt refusing to wear non slip socks.
[2024-08-20 16:22] LABS: Glucose, Whole Blood 181 mg/dL (60-115)
[2024-08-20 20:17] LABS: Glucose, Whole Blood 245 mg/dL (60-115)
[2024-08-20] MEDS: Atorvastatin Calcium 10 MG TABLET PO (20:43)
[2024-08-20 23:17] VITALS: BP 143/78; PULSE 87; RESP 18; TEMP 36.6; O2SAT 96
[2024-08-21] MEDS: Levothyroxine Sodium 100 MCG TABLET PO (05:38)
[2024-08-21] MEDS: Omeprazole 20 MG CAPSULE.DR PO ×2 (05:38→16:24)
[2024-08-21 07:16] LABS: Glucose, Whole Blood 151 mg/dL (60-115)
[2024-08-21] MEDS: Insulin Lispro 100 UNIT/ML 3 ML VIAL SUBCUT ×3 (07:20→21:24)
[2024-08-21 07:25] VITALS: BP 137/80; PULSE 93; RESP 18; TEMP 36.6; O2SAT 95
[2024-08-21] MEDS: Enoxaparin Sodium 40 MG/0.4 ML SYRINGE SUBCUT (08:00)
[2024-08-21] MEDS: FLUoxetine HCl 20 MG CAPSULE 40 MG PO (08:01)
[2024-08-21] MEDS: amLODIPine Besylate 5 MG TABLET 10 MG PO (08:01)
[2024-08-21] MEDS: Cholecalciferol (Vitamin D3) 25 MCG TABLET 50 MCG PO (08:01)
[2024-08-21] MEDS: Aspirin 81 MG TAB.CHEW PO (08:01)
[2024-08-21] MEDS: Ferrous Sulfate 300 MG/5 ML LIQUID PO (08:01)
--- NOTE | 2024-08-21 09:35 | HO.PM.IMPN ---
Subjective Subjective Date of Service: 08/21/24 Interval History: No new issues insisting on wanting to go home Physical Exam Vital Signs: Vital Signs: Last Vital Signs Temp 97.8 F 08/21/24 07:25 Pulse 93 08/21/24 07:25 Resp 18 08/21/24 07:25 BP 137/80 08/21/24 07:25 Pulse Ox 95 08/21/24 07:25 O2 Del Method Room Air 08/21/24 07:25 O2 Flow Rate 2 07/16/24 06:03 BMI result Body Mass Index 24.2 Const: Other: Gen: in no acute distress HEENT: sclera anicteric, moist mucus membranes Neck: supple Lungs: clear to auscultation bilaterally Heart: regular rate and rhythm, no murmurs Abd: soft, non-tender, non-distended Ext: no edema Skin: warm/well-perfused Neuro: alert and oriented to self and place, moving all extremities Psych: appropriate affect Objective Data Active Medications Acetaminophen (Acetaminophen 325 Mg Tablet) 975 mg PO Q6H PRN PRN Reason: Pain, Mild 1-3,fever,headache Last Admin: 08/06/24 20:18 Dose: 975 mg Documented By: NAHED Amlodipine Besylate (Amlodipine Besylate 5 Mg Tablet) 10 mg PO DAILY [facility]; Protocol Last Admin: 08/21/24 08:01 Dose: 10 mg Documented By: GISSELLE Aspirin (Aspirin 81 Mg Tab.Chew) 81 mg PO DAILY [facility] Last Admin: 08/21/24 08:01 Dose: 81 mg Documented By: GISSELLE Atorvastatin Calcium (Atorvastatin Calcium 10 Mg Tablet) 10 mg PO BEDTIME [facility] Last Admin: 08/20/24 20:43 Dose: 10 mg Documented By: NAHED Dextrose (Dextrose 50 % 25 Gm/50 Ml Syringe) 25 gm IVPUSH Q15M PRN PRN Reason: HYPOGLYCEMIA STANDING PROTOCOL Enoxaparin Sodium (Enoxaparin Sodium 40 Mg/0.4 Ml Syringe) 40 mg SUBCUT Q24H [facility] Last Admin: 08/21/24 08:00 Dose: 40 mg Documented By: GISSELLE Ferrous Sulfate (Ferrous Sulfate 300 Mg/5 Ml Liquid) 300 mg PO DAILY [facility] Last Admin: 08/21/24 08:01 Dose: 300 mg Documented By: GISSELLE Fluoxetine HCl (Fluoxetine Hcl 20 Mg Capsule) 40 mg PO DAILY [facility] Last Admin: 08/21/24 08:01 Dose: 40 mg Documented By: GISSELLE Glucose (Glucose Gel 15 Gm Gel..Gram.) 15 gm PO Q15M PRN; Protocol PRN Reason: per Hypoglycemia Standing Ord. Insulin Human Lispro (Insulin Lispro 100 Unit/Ml 3 Ml Vial) 0 unit SUBCUT QIDACHS [facility]; Protocol Last Admin: 08/21/24 07:20 Dose: 2 unit Documented By: GISSELLE Levothyroxine Sodium (Levothyroxine Sodium 100 Mcg Tablet) 100 mcg PO DAILY@0600 [facility] Last Admin: 08/21/24 05:38 Dose: 100 mcg Documented By: NAHED Lidocaine (Lidocaine 4 % Patch Adh..Patch) 1 patch TRANSDERMA DAILY PRN PRN Reason: Pain Last Admin: 07/11/24 23:31 Dose: 1 patch Documented By: JOSSUE Omeprazole (Omeprazole 20 Mg Capsule.) 20 mg PO BID@0630,1630 [facility] Last Admin: 08/21/24 05:38 Dose: 20 mg Documented By: NAHED Vitamin D (Cholecalciferol (Vitamin D3) 25 Mcg Tablet) 50 mcg PO DAILY [facility] Last Admin: 08/21/24 08:01 Dose: 50 mcg Documented By: GISSELLE Labs 08/17/24 08:09 08/17/24 08:09 Labs: Laboratory Results - last 24 hr 08/20/24 08/20/24 08/20/24 11:39 16:13 20:05 POC Glucose 157 H 181 H 245 H 08/21/24 06:59 POC Glucose 151 H Assessment and Plan (1) Major neurocognitive disorder: Status: Acute Plan d28 for 84yo F with MDD, HTN, HLD, CAD, DM2, hypothyroidism, GERD presented to ED 07/10/24 with visual hallucinations, nausea, and diarrhea treated for UTI while awaiting placement admitted to Medicine 07/19 for decompensation AMS, multifactorial likely underlying cognitive impairment + UTI (completed treatment) - CT negative, TSH a little over-suppressed, B12 normal; per Psychiatry, no capacity; d/c'ed olanzapine; awaiting guardianship - Pt expressed SI 07/27/24 and sitter was placed; CARE Team consult UTI - completed treatment thrombocytosis - per Hematology recommends JAK2 testing on outatient basis [?myeloproliferative disorder such as essential thrombocytosis] diarrhea - resolved AMAURY - resolved gout L wrist, resolved - recent episode of gout on 07/21/2024, treated with colchicine x3 doses and no pain or swelling at this time HTN - continue amlodipine HLD/CAD - continue atorvastatin and ASA DM2, well-controlled - hold Lantus, continue correction-dose lispro, A1c 6.8 hypothyroidism - continue LT4 but on 08/17 lowered dose to 100 mcg/d due to over-suppression of TSH; recheck TSH in 4 wk GERD - PPI mood disorder - fluoxetine VTE ppx - enoxaparin dispo - awaiting guardianship then LTC periodic lab check, last check 08/17, cbc, bmp ok Total time managing care of this patient today: 35 minutes. Quality Stroke Does the patient have a stroke diagnosis?: No VTE Prior VTE?: No VTE Risk Level:: Medical - moderate - high VTE Device Contraindication: Treatment Not Indicated VTE Drug Contraindication: N/A - Med Ordered
[2024-08-21 11:30] LABS: Glucose, Whole Blood 216 mg/dL (60-115)
[2024-08-21 15:37] VITALS: BP 120/61; PULSE 84; RESP 20; TEMP 37; O2SAT 95
[2024-08-21 16:24] LABS: Glucose, Whole Blood 148 mg/dL (60-115)
[2024-08-21 16:40] LABS: Glucose, Whole Blood 153 mg/dL (60-115)
[2024-08-21 19:53] LABS: Glucose, Whole Blood 252 mg/dL (60-115)
[2024-08-21] MEDS: Atorvastatin Calcium 10 MG TABLET PO (21:24)
[2024-08-21 23:32] VITALS: BP 136/73; PULSE 85; RESP 18; TEMP 36.3; O2SAT 96
[2024-08-22] MEDS: Levothyroxine Sodium 100 MCG TABLET PO (06:06)
[2024-08-22] MEDS: Omeprazole 20 MG CAPSULE.DR PO ×2 (06:06→16:00)
[2024-08-22 07:28] VITALS: BP 139/68; PULSE 88; RESP 18; TEMP 36.2; O2SAT 96
[2024-08-22 07:44] LABS: Glucose, Whole Blood 168 mg/dL (60-115)
[2024-08-22 07:56] VITALS: BP 139/68
[2024-08-22] MEDS: amLODIPine Besylate 5 MG TABLET 10 MG PO (07:56)
[2024-08-22] MEDS: FLUoxetine HCl 20 MG CAPSULE 40 MG PO (07:56)
[2024-08-22] MEDS: Insulin Lispro 100 UNIT/ML 3 ML VIAL SUBCUT ×4 (07:56→21:33)
[2024-08-22] MEDS: Aspirin 81 MG TAB.CHEW PO (07:57)
[2024-08-22] MEDS: Ferrous Sulfate 300 MG/5 ML LIQUID PO (07:57)
[2024-08-22] MEDS: Enoxaparin Sodium 40 MG/0.4 ML SYRINGE SUBCUT (07:57)
[2024-08-22] MEDS: Cholecalciferol (Vitamin D3) 25 MCG TABLET 50 MCG PO (07:57)
[2024-08-22] MEDS: Acetaminophen 325 MG TABLET 975 MG PO (09:36)
--- NOTE | 2024-08-22 10:58 | P.PNIM_ITS ---
Subjective Subjective Date of Service: 08/22/24 Interval History: No new issues, vital stable, blood sugar ok Physical Exam 2 Vital Signs: Vital Signs: Last Vital Signs Temp 97.1 F 08/22/24 07:28 Pulse 88 08/22/24 07:28 Resp 18 08/22/24 07:28 BP 139/68 08/22/24 07:56 Pulse Ox 96 08/22/24 07:28 O2 Del Method Room Air 08/22/24 07:28 O2 Flow Rate 2 07/16/24 06:03 BMI result Body Mass Index 24.2 Const: Other: Gen: in no acute distress HEENT: sclera anicteric, moist mucus membranes Neck: supple Lungs: clear to auscultation bilaterally Heart: regular rate and rhythm, no murmurs Abd: soft, non-tender, non-distended Ext: no edema Skin: warm/well-perfused Neuro: alert and oriented to self and place, moving all extremities Psych: appropriate affect Objective Data Active Medications Acetaminophen (Acetaminophen 325 Mg Tablet) 975 mg PO Q6H PRN PRN Reason: Pain, Mild 1-3,fever,headache Last Admin: 08/22/24 09:36 Dose: 975 mg Documented By: YUSUF Amlodipine Besylate (Amlodipine Besylate 5 Mg Tablet) 10 mg PO DAILY [facility]; Protocol Last Admin: 08/22/24 07:56 Dose: 10 mg Documented By: YUSUF Aspirin (Aspirin 81 Mg Tab.Chew) 81 mg PO DAILY [facility] Last Admin: 08/22/24 07:57 Dose: 81 mg Documented By: YUSUF Atorvastatin Calcium (Atorvastatin Calcium 10 Mg Tablet) 10 mg PO BEDTIME [facility] Last Admin: 08/21/24 21:24 Dose: 10 mg Documented By: SUNG Dextrose (Dextrose 50 % 25 Gm/50 Ml Syringe) 25 gm IVPUSH Q15M PRN PRN Reason: HYPOGLYCEMIA STANDING PROTOCOL Enoxaparin Sodium (Enoxaparin Sodium 40 Mg/0.4 Ml Syringe) 40 mg SUBCUT Q24H [facility] Last Admin: 08/22/24 07:57 Dose: 40 mg Documented By: YUSUF Ferrous Sulfate (Ferrous Sulfate 300 Mg/5 Ml Liquid) 300 mg PO DAILY [facility] Last Admin: 08/22/24 07:57 Dose: 300 mg Documented By: YUSUF Fluoxetine HCl (Fluoxetine Hcl 20 Mg Capsule) 40 mg PO DAILY [facility] Last Admin: 08/22/24 07:56 Dose: 40 mg Documented By: YUSUF Glucose (Glucose Gel 15 Gm Gel..Gram.) 15 gm PO Q15M PRN; Protocol PRN Reason: per Hypoglycemia Standing Ord. Insulin Human Lispro (Insulin Lispro 100 Unit/Ml 3 Ml Vial) 0 unit SUBCUT QIDACHS [facility]; Protocol Last Admin: 08/22/24 07:56 Dose: 2 unit Documented By: YUSUF Levothyroxine Sodium (Levothyroxine Sodium 100 Mcg Tablet) 100 mcg PO DAILY@0600 [facility] Last Admin: 08/22/24 06:06 Dose: 100 mcg Documented By: SUNG Lidocaine (Lidocaine 4 % Patch Adh..Patch) 1 patch TRANSDERMA DAILY PRN PRN Reason: Pain Last Admin: 07/11/24 23:31 Dose: 1 patch Documented By: JOSSUE Omeprazole (Omeprazole 20 Mg Capsule.) 20 mg PO BID@0630,1630 [facility] Last Admin: 08/22/24 06:06 Dose: 20 mg Documented By: SUNG Vitamin D (Cholecalciferol (Vitamin D3) 25 Mcg Tablet) 50 mcg PO DAILY [facility] Last Admin: 08/22/24 07:57 Dose: 50 mcg Documented By: YUSUF Labs 08/17/24 08:09 08/17/24 08:09 Labs: Laboratory Results - last 24 hr 08/21/24 08/21/24 08/21/24 11:22 16:21 16:31 POC Glucose 216 H 148 H 153 H 08/21/24 08/22/24 19:48 07:29 POC Glucose 252 H 168 H Assessment and Plan (1) Major neurocognitive disorder: Status: Acute Plan for 84yo F with MDD, HTN, HLD, CAD, DM2, hypothyroidism, GERD presented to ED 07/10/24 with visual hallucinations, nausea, and diarrhea treated for UTI while awaiting placement admitted to Medicine 07/19 for decompensation AMS, multifactorial likely underlying cognitive impairment + UTI (completed treatment) - CT negative, TSH a little over-suppressed, B12 normal; per Psychiatry, no capacity; d/c'ed olanzapine; awaiting guardianship - Pt expressed SI 1/8/25 and sitter was placed; CARE Team consult UTI - completed treatment thrombocytosis - per Hematology recommends JAK2 testing on outatient basis [?myeloproliferative disorder such as essential thrombocytosis] diarrhea - resolved AMAURY - resolved gout L wrist, resolved - recent episode of gout on 07/21/2024, treated with colchicine x3 doses and no pain or swelling at this time HTN - continue amlodipine HLD/CAD - continue atorvastatin and ASA DM2, well-controlled - hold Lantus, continue correction-dose lispro, A1c 6.8 hypothyroidism - continue LT4 but on 08/17 lowered dose to 100 mcg/d due to over-suppression of TSH; recheck TSH in 4 wk GERD - PPI mood disorder - fluoxetine VTE ppx - enoxaparin dispo - awaiting guardianship then LTC periodic lab check, last check 08/17, cbc, bmp ok [place] hearing today Total time managing care of this patient today: 35 minutes. Quality Stroke Does the patient have a stroke diagnosis?: No VTE Prior VTE?: No VTE Risk Level:: Medical - moderate - high VTE Device Contraindication: Treatment Not Indicated VTE Drug Contraindication: N/A - Med Ordered
[2024-08-22 11:52] LABS: Glucose, Whole Blood 214 mg/dL (60-115)
--- NOTE | 2024-08-22 11:53 | MHC.CM.PN ---
Patient continues to await guardianship hearing scheduled for this afternoon. CM will continue to follow.
[2024-08-22 15:05] VITALS: BP 119/58; PULSE 90; RESP 18; TEMP 36.5; O2SAT 94
[2024-08-22 16:11] LABS: Glucose, Whole Blood 230 mg/dL (60-115)
[2024-08-22 18:57] VITALS: BP 117/60; PULSE 87; RESP 16; TEMP 36.4; O2SAT 93
[2024-08-22 20:52] LABS: Glucose, Whole Blood 231 mg/dL (60-115)
[2024-08-22] MEDS: Atorvastatin Calcium 10 MG TABLET PO (21:33)
[2024-08-22 23:31] VITALS: BP 151/72; PULSE 82; RESP 18; TEMP 36.5; O2SAT 97
[2024-08-23] MEDS: Levothyroxine Sodium 100 MCG TABLET PO (05:31)
[2024-08-23] MEDS: Omeprazole 20 MG CAPSULE.DR PO ×2 (05:31→15:48)
[2024-08-23 07:27] VITALS: BP 136/76; PULSE 75; RESP 18; TEMP 36.7; O2SAT 96
[2024-08-23 07:54] LABS: Glucose, Whole Blood 174 mg/dL (60-115)
[2024-08-23] MEDS: Insulin Lispro 100 UNIT/ML 3 ML VIAL SUBCUT ×4 (08:29→21:34)
[2024-08-23 08:30] VITALS: BP 136/76
[2024-08-23] MEDS: Enoxaparin Sodium 40 MG/0.4 ML SYRINGE SUBCUT (08:30)
[2024-08-23] MEDS: Aspirin 81 MG TAB.CHEW PO (08:30)
[2024-08-23] MEDS: amLODIPine Besylate 5 MG TABLET 10 MG PO (08:30)
[2024-08-23] MEDS: FLUoxetine HCl 20 MG CAPSULE 40 MG PO (08:30)
[2024-08-23] MEDS: Cholecalciferol (Vitamin D3) 25 MCG TABLET 50 MCG PO (08:30)
[2024-08-23] MEDS: Ferrous Sulfate 300 MG/5 ML LIQUID PO (08:30)
[2024-08-23 11:31] LABS: Glucose, Whole Blood 231 mg/dL (60-115)
--- NOTE | 2024-08-23 15:01 | HO.PM.IMPN ---
Subjective Subjective Date of Service: 08/23/24 Interval History: No new issues, vital stable. Review of Systems as above. Physical Exam Vital Signs: Vital Signs: Last Vital Signs Temp 98.0 F 08/23/24 07:27 Pulse 75 08/23/24 07:27 Resp 18 08/23/24 07:27 BP 136/76 08/23/24 08:30 Pulse Ox 96 08/23/24 07:27 O2 Del Method Room Air 08/23/24 07:27 O2 Flow Rate 2 07/16/24 06:03 BMI result Body Mass Index 24.2 Neck: supple Lungs: clear to auscultation bilaterally Heart: regular rate and rhythm, no murmurs Abd: soft, non-tender, non-distended Ext: no edema Objective Data Active Medications Acetaminophen (Acetaminophen 325 Mg Tablet) 975 mg PO Q6H PRN PRN Reason: Pain, Mild 1-3,fever,headache Last Admin: 08/22/24 09:36 Dose: 975 mg Documented By: YUSUF Amlodipine Besylate (Amlodipine Besylate 5 Mg Tablet) 10 mg PO DAILY [facility]; Protocol Last Admin: 08/23/24 08:30 Dose: 10 mg Documented By: YUSUF Aspirin (Aspirin 81 Mg Tab.Chew) 81 mg PO DAILY [facility] Last Admin: 08/23/24 08:30 Dose: 81 mg Documented By: YUSUF Atorvastatin Calcium (Atorvastatin Calcium 10 Mg Tablet) 10 mg PO BEDTIME [facility] Last Admin: 08/22/24 21:33 Dose: 10 mg Documented By: SUNG Dextrose (Dextrose 50 % 25 Gm/50 Ml Syringe) 25 gm IVPUSH Q15M PRN PRN Reason: HYPOGLYCEMIA STANDING PROTOCOL Enoxaparin Sodium (Enoxaparin Sodium 40 Mg/0.4 Ml Syringe) 40 mg SUBCUT Q24H [facility] Last Admin: 08/23/24 08:30 Dose: 40 mg Documented By: YUSUF Ferrous Sulfate (Ferrous Sulfate 300 Mg/5 Ml Liquid) 300 mg PO DAILY [facility] Last Admin: 08/23/24 08:30 Dose: 300 mg Documented By: YUSUF Fluoxetine HCl (Fluoxetine Hcl 20 Mg Capsule) 40 mg PO DAILY [facility] Last Admin: 08/23/24 08:30 Dose: 40 mg Documented By: YUSUF Glucose (Glucose Gel 15 Gm Gel..Gram.) 15 gm PO Q15M PRN; Protocol PRN Reason: per Hypoglycemia Standing Ord. Insulin Human Lispro (Insulin Lispro 100 Unit/Ml 3 Ml Vial) 0 unit SUBCUT QIDACHS [facility]; Protocol Last Admin: 08/23/24 12:14 Dose: 4 unit Documented By: YUSUF Levothyroxine Sodium (Levothyroxine Sodium 100 Mcg Tablet) 100 mcg PO DAILY@0600 [facility] Last Admin: 08/23/24 05:31 Dose: 100 mcg Documented By: SUNG Lidocaine (Lidocaine 4 % Patch Adh..Patch) 1 patch TRANSDERMA DAILY PRN PRN Reason: Pain Last Admin: 07/11/24 23:31 Dose: 1 patch Documented By: JOSSUE Omeprazole (Omeprazole 20 Mg Capsule.Dr) 20 mg PO BID@0630,1630 [facility] Last Admin: 08/23/24 05:31 Dose: 20 mg Documented By: SUNG Vitamin D (Cholecalciferol (Vitamin D3) 25 Mcg Tablet) 50 mcg PO DAILY [facility] Last Admin: 08/23/24 08:30 Dose: 50 mcg Documented By: YUSUF Labs 08/17/24 08:09 08/17/24 08:09 Labs: Laboratory Results - last 24 hr 08/22/24 08/22/24 08/23/24 16:03 20:47 07:30 POC Glucose 230 H 231 H 174 H 08/23/24 11:27 POC Glucose 231 H Assessment and Plan (1) Major neurocognitive disorder: Status: Acute Plan for 84yo F with MDD, HTN, HLD, CAD, DM2, hypothyroidism, GERD presented to ED 07/10/24 with visual hallucinations, nausea, and diarrhea treated for UTI while awaiting placement admitted to Medicine 07/19 for decompensation AMS, multifactorial likely underlying cognitive impairment + UTI (completed treatment) - CT negative, TSH a little over-suppressed, B12 normal; per Psychiatry, no capacity; d/c'ed olanzapine; awaiting guardianship - Pt expressed SI 07/27/24 and sitter was placed; CARE Team consult UTI - completed treatment thrombocytosis - per Hematology recommends JAK2 testing on outatient basis [?myeloproliferative disorder such as essential thrombocytosis] diarrhea - resolved AMAURY - resolved gout L wrist, resolved - recent episode of gout on 07/21/2024, treated with colchicine x3 doses and no pain or swelling at this time HTN - continue amlodipine HLD/CAD - continue atorvastatin and ASA DM2, well-controlled - hold Lantus, continue correction-dose lispro, A1c 6.8 hypothyroidism - continue LT4 but on 08/17 lowered dose to 100 mcg/d due to over-suppression of TSH; recheck TSH in 4 wk GERD - PPI mood disorder - fluoxetine VTE ppx - enoxaparin dispo - awaiting guardianship then LTC periodic lab check, last check 08/17, cbc, bmp ok [place] today afternoon Total time managing care of this patient today: 35 minutes. Quality Stroke Does the patient have a stroke diagnosis?: No VTE Prior VTE?: No VTE Risk Level:: Medical - moderate - high VTE Device Contraindication: Treatment Not Indicated VTE Drug Contraindication: N/A - Med Ordered
[2024-08-23 15:37] VITALS: BP 152/71; PULSE 87; RESP 18; TEMP 36.4; O2SAT 93
[2024-08-23 16:16] LABS: Glucose, Whole Blood 153 mg/dL (60-115)
[2024-08-23 20:31] LABS: Glucose, Whole Blood 239 mg/dL (60-115)
[2024-08-23] MEDS: Atorvastatin Calcium 10 MG TABLET PO (21:34)
[2024-08-23 23:58] VITALS: BP 137/61; PULSE 81; RESP 17; TEMP 36.1; O2SAT 94
[2024-08-24] MEDS: Levothyroxine Sodium 100 MCG TABLET PO (05:23)
[2024-08-24] MEDS: Omeprazole 20 MG CAPSULE.DR PO ×2 (05:23→15:48)
[2024-08-24 07:20] LABS: Glucose, Whole Blood 173 mg/dL (60-115)
[2024-08-24] MEDS: Insulin Lispro 100 UNIT/ML 3 ML VIAL SUBCUT ×4 (07:38→21:07)
[2024-08-24] MEDS: amLODIPine Besylate 5 MG TABLET 10 MG PO (07:39)
[2024-08-24] MEDS: Enoxaparin Sodium 40 MG/0.4 ML SYRINGE SUBCUT (07:39)
[2024-08-24] MEDS: FLUoxetine HCl 20 MG CAPSULE 40 MG PO (07:39)
[2024-08-24] MEDS: Ferrous Sulfate 300 MG/5 ML LIQUID PO (07:39)
[2024-08-24] MEDS: Aspirin 81 MG TAB.CHEW PO (07:39)
[2024-08-24] MEDS: Cholecalciferol (Vitamin D3) 25 MCG TABLET 50 MCG PO (07:39)
[2024-08-24 07:48] VITALS: BP 160/77; PULSE 91; RESP 16; TEMP 36.6; O2SAT 95
--- NOTE | 2024-08-24 10:40 | MHC.CM.PN ---
Awaiting outcome of guardianship hearing. CM will continue to follow.
[2024-08-24 11:21] LABS: Glucose, Whole Blood 216 mg/dL (60-115)
[2024-08-24 15:07] VITALS: BP 157/69; PULSE 89; RESP 20; TEMP 36.5; O2SAT 95
[2024-08-24 16:24] LABS: Glucose, Whole Blood 210 mg/dL (60-115)
--- NOTE | 2024-08-24 16:59 | P.PNIM_ITS ---
Subjective Subjective Date of Service: 08/24/24 Interval History: No new issues, vital stable. Review of Systems no new symptoms Physical Exam 2 Vital Signs: Vital Signs: Last Vital Signs Temp 97.7 F 08/24/24 15:07 Pulse 89 08/24/24 15:07 Resp 20 08/24/24 15:07 BP 157/69 H 08/24/24 15:07 Pulse Ox 95 08/24/24 15:07 O2 Del Method Room Air 08/24/24 15:07 O2 Flow Rate 2 07/16/24 06:03 BMI result Body Mass Index 24.2 Neck: supple Lungs: clear to auscultation bilaterally Heart: regular rate and rhythm, no murmurs Abd: soft, non-tender, non-distended Ext: no edema Objective Data Active Medications Acetaminophen (Acetaminophen 325 Mg Tablet) 975 mg PO Q6H PRN PRN Reason: Pain, Mild 1-3,fever,headache Last Admin: 08/22/24 09:36 Dose: 975 mg Documented By: YUSUF Amlodipine Besylate (Amlodipine Besylate 5 Mg Tablet) 10 mg PO DAILY [facility]; Protocol Last Admin: 08/24/24 07:39 Dose: 10 mg Documented By: FAY Aspirin (Aspirin 81 Mg Tab.Chew) 81 mg PO DAILY [facility] Last Admin: 08/24/24 07:39 Dose: 81 mg Documented By: FAY Atorvastatin Calcium (Atorvastatin Calcium 10 Mg Tablet) 10 mg PO BEDTIME [facility] Last Admin: 08/23/24 21:34 Dose: 10 mg Documented By: NATALYA Dextrose (Dextrose 50 % 25 Gm/50 Ml Syringe) 25 gm IVPUSH Q15M PRN PRN Reason: HYPOGLYCEMIA STANDING PROTOCOL Enoxaparin Sodium (Enoxaparin Sodium 40 Mg/0.4 Ml Syringe) 40 mg SUBCUT Q24H [facility] Last Admin: 08/24/24 07:39 Dose: 40 mg Documented By: FAY Ferrous Sulfate (Ferrous Sulfate 300 Mg/5 Ml Liquid) 300 mg PO DAILY [facility] Last Admin: 08/24/24 07:39 Dose: 300 mg Documented By: FAY Fluoxetine HCl (Fluoxetine Hcl 20 Mg Capsule) 40 mg PO DAILY [facility] Last Admin: 08/24/24 07:39 Dose: 40 mg Documented By: FAY Glucose (Glucose Gel 15 Gm Gel..Gram.) 15 gm PO Q15M PRN; Protocol PRN Reason: per Hypoglycemia Standing Ord. Insulin Human Lispro (Insulin Lispro 100 Unit/Ml 3 Ml Vial) 0 unit SUBCUT QIDACHS [facility]; Protocol Last Admin: 08/24/24 11:48 Dose: 4 unit Documented By: FAY Levothyroxine Sodium (Levothyroxine Sodium 100 Mcg Tablet) 100 mcg PO DAILY@0600 [facility] Last Admin: 08/24/24 05:23 Dose: 100 mcg Documented By: NATALYA Lidocaine (Lidocaine 4 % Patch Adh..Patch) 1 patch TRANSDERMA DAILY PRN PRN Reason: Pain Last Admin: 07/11/24 23:31 Dose: 1 patch Documented By: JOSSUE Omeprazole (Omeprazole 20 Mg Capsule.) 20 mg PO BID@0630,1630 [facility] Last Admin: 08/24/24 15:48 Dose: 20 mg Documented By: YUSUF Vitamin D (Cholecalciferol (Vitamin D3) 25 Mcg Tablet) 50 mcg PO DAILY [facility] Last Admin: 08/24/24 07:39 Dose: 50 mcg Documented By: FAY Labs 08/17/24 08:09 08/17/24 08:09 Labs: Laboratory Results - last 24 hr 08/23/24 08/24/24 08/24/24 20:27 07:11 11:18 POC Glucose 239 H 173 H 216 H 08/24/24 16:17 POC Glucose 210 H Assessment and Plan (1) Major neurocognitive disorder: Status: Acute Plan for 84yo F with MDD, HTN, HLD, CAD, DM2, hypothyroidism, GERD presented to ED 07/10/24 with visual hallucinations, nausea, and diarrhea treated for UTI while awaiting placement admitted to Medicine 07/19 for decompensation AMS, multifactorial likely underlying cognitive impairment + UTI (completed treatment) - CT negative, TSH a little over-suppressed, B12 normal; per Psychiatry, no capacity; d/c'ed olanzapine; awaiting guardianship - Pt expressed SI 07/27/24 and sitter was placed; CARE Team consult UTI - completed treatment thrombocytosis - per Hematology recommends JAK2 testing on outatient basis [?myeloproliferative disorder such as essential thrombocytosis] diarrhea - resolved AMAURY - resolved gout L wrist, resolved - recent episode of gout on 07/21/2024, treated with colchicine x3 doses and no pain or swelling at this time HTN - continue amlodipine HLD/CAD - continue atorvastatin and ASA DM2, well-controlled - hold Lantus, continue correction-dose lispro, A1c 6.8 hypothyroidism - continue LT4 but on 08/17 lowered dose to 100 mcg/d due to over-suppression of TSH; recheck TSH in 4 wk GERD - PPI mood disorder - fluoxetine VTE ppx - enoxaparin dispo - awaiting guardianship then LTC periodic lab check, last check 08/17, cbc, bmp ok [facility] hearing today afternoon Total time managing care of this patient today: 35 minutes. Quality Stroke Does the patient have a stroke diagnosis?: No VTE Prior VTE?: No VTE Risk Level:: Medical - moderate - high VTE Device Contraindication: Treatment Not Indicated VTE Drug Contraindication: N/A - Med Ordered
[2024-08-24 19:08] VITALS: BP 122/60; PULSE 82; RESP 20; TEMP 36.3; O2SAT 94
[2024-08-24] MEDS: Atorvastatin Calcium 10 MG TABLET PO (19:42)
[2024-08-24 21:05] LABS: Glucose, Whole Blood 244 mg/dL (60-115)
[2024-08-24 23:43] VITALS: BP 111/56; PULSE 71; RESP 17; TEMP 36.3; O2SAT 96
[2024-08-25] MEDS: Omeprazole 20 MG CAPSULE.DR PO ×2 (05:28→18:34)
[2024-08-25] MEDS: Levothyroxine Sodium 100 MCG TABLET PO (05:29)
[2024-08-25 07:11] VITALS: BP 136/75; PULSE 90; RESP 16; TEMP 36.3; O2SAT 95
[2024-08-25 07:14] LABS: Glucose, Whole Blood 157 mg/dL (60-115)
[2024-08-25] MEDS: Insulin Lispro 100 UNIT/ML 3 ML VIAL SUBCUT ×4 (08:31→22:03)
[2024-08-25] MEDS: amLODIPine Besylate 5 MG TABLET 10 MG PO (08:32)
[2024-08-25] MEDS: Enoxaparin Sodium 40 MG/0.4 ML SYRINGE SUBCUT (08:32)
[2024-08-25] MEDS: FLUoxetine HCl 20 MG CAPSULE 40 MG PO (08:32)
[2024-08-25] MEDS: Ferrous Sulfate 300 MG/5 ML LIQUID PO (08:33)
[2024-08-25] MEDS: Aspirin 81 MG TAB.CHEW PO (08:33)
[2024-08-25] MEDS: Cholecalciferol (Vitamin D3) 25 MCG TABLET 50 MCG PO (08:33)
[2024-08-25 11:03] LABS: Glucose, Whole Blood 238 mg/dL (60-115)
[2024-08-25 15:45] VITALS: BP 143/67; PULSE 93; RESP 18; TEMP 37.1; O2SAT 95
[2024-08-25 16:21] LABS: Glucose, Whole Blood 160 mg/dL (60-115)
--- NOTE | 2024-08-25 17:13 | P.PNIM_ITS ---
Subjective Subjective Date of Service: 08/25/24 Interval History: No new issues, vital stable. Review of Systems Review of Systems: Yes all other systems are reviewed and are negative Physical Exam 2 Vital Signs: Vital Signs: Last Vital Signs Temp 98.7 F 08/25/24 15:45 Pulse 93 08/25/24 15:45 Resp 18 08/25/24 15:45 BP 143/67 H 08/25/24 15:45 Pulse Ox 95 08/25/24 15:45 O2 Del Method Room Air 08/25/24 15:45 O2 Flow Rate 2 07/16/24 06:03 BMI result Body Mass Index 24.2 Neck: supple Lungs: clear to auscultation bilaterally Heart: regular rate and rhythm, no murmurs Abd: soft, non-tender, non-distended Ext: no edema Objective Data Active Medications Acetaminophen (Acetaminophen 325 Mg Tablet) 975 mg PO Q6H PRN PRN Reason: Pain, Mild 1-3,fever,headache Last Admin: 08/22/24 09:36 Dose: 975 mg Documented By: YUSUF Amlodipine Besylate (Amlodipine Besylate 5 Mg Tablet) 10 mg PO DAILY [facility]; Protocol Last Admin: 08/25/24 08:32 Dose: 10 mg Documented By: EMILE Aspirin (Aspirin 81 Mg Tab.Chew) 81 mg PO DAILY [facility] Last Admin: 08/25/24 08:33 Dose: 81 mg Documented By: EMILE Atorvastatin Calcium (Atorvastatin Calcium 10 Mg Tablet) 10 mg PO BEDTIME [facility] Last Admin: 08/24/24 19:42 Dose: 10 mg Documented By: MELVINA Dextrose (Dextrose 50 % 25 Gm/50 Ml Syringe) 25 gm IVPUSH Q15M PRN PRN Reason: HYPOGLYCEMIA STANDING PROTOCOL Enoxaparin Sodium (Enoxaparin Sodium 40 Mg/0.4 Ml Syringe) 40 mg SUBCUT Q24H [facility] Last Admin: 08/25/24 08:32 Dose: 40 mg Documented By: EMILE Ferrous Sulfate (Ferrous Sulfate 300 Mg/5 Ml Liquid) 300 mg PO DAILY [facility] Last Admin: 08/25/24 08:33 Dose: 300 mg Documented By: EMILE Fluoxetine HCl (Fluoxetine Hcl 20 Mg Capsule) 40 mg PO DAILY [facility] Last Admin: 08/25/24 08:32 Dose: 40 mg Documented By: EMILE Glucose (Glucose Gel 15 Gm Gel..Gram.) 15 gm PO Q15M PRN; Protocol PRN Reason: per Hypoglycemia Standing Ord. Insulin Human Lispro (Insulin Lispro 100 Unit/Ml 3 Ml Vial) 0 unit SUBCUT QIDACHS [facility]; Protocol Last Admin: 08/25/24 12:12 Dose: 4 unit Documented By: EMILE Levothyroxine Sodium (Levothyroxine Sodium 100 Mcg Tablet) 100 mcg PO DAILY@0600 [facility] Last Admin: 08/25/24 05:29 Dose: 100 mcg Documented By: MELVINA Lidocaine (Lidocaine 4 % Patch Adh..Patch) 1 patch TRANSDERMA DAILY PRN PRN Reason: Pain Last Admin: 07/11/24 23:31 Dose: 1 patch Documented By: JOSSUE Omeprazole (Omeprazole 20 Mg Capsule.) 20 mg PO BID@0630,1630 [facility] Last Admin: 08/25/24 05:28 Dose: 20 mg Documented By: MELVINA Vitamin D (Cholecalciferol (Vitamin D3) 25 Mcg Tablet) 50 mcg PO DAILY [facility] Last Admin: 08/25/24 08:33 Dose: 50 mcg Documented By: EMILE Labs 08/17/24 08:09 08/17/24 08:09 Labs: Laboratory Results - last 24 hr 08/24/24 08/25/24 08/25/24 20:55 07:09 11:00 POC Glucose 244 H 157 H 238 H 08/25/24 16:10 POC Glucose 160 H Assessment and Plan (1) Major neurocognitive disorder: Status: Acute Plan for 84yo F with MDD, HTN, HLD, CAD, DM2, hypothyroidism, GERD presented to ED 07/10/24 with visual hallucinations, nausea, and diarrhea treated for UTI while awaiting placement admitted to Medicine 07/19 for decompensation AMS, multifactorial likely underlying cognitive impairment + UTI (completed treatment) - CT negative, TSH a little over-suppressed, B12 normal; per Psychiatry, no capacity; d/c'ed olanzapine; awaiting guardianship - Pt expressed SI 07/27/24 and sitter was placed; CARE Team consult UTI - completed treatment thrombocytosis - per Hematology recommends JAK2 testing on outatient basis [?myeloproliferative disorder such as essential thrombocytosis] diarrhea - resolved AMAURY - resolved gout L wrist, resolved - recent episode of gout on 07/21/2024, treated with colchicine x3 doses and no pain or swelling at this time HTN - continue amlodipine HLD/CAD - continue atorvastatin and ASA DM2, well-controlled - hold Lantus, continue correction-dose lispro, A1c 6.8 hypothyroidism - continue LT4 but on 08/17 lowered dose to 100 mcg/d due to over-suppression of TSH; recheck TSH in 4 wk GERD - PPI mood disorder - fluoxetine VTE ppx - enoxaparin dispo - awaiting guardianship then LTC periodic lab check, last check 08/17, cbc, bmp ok Guargianship hearing today afternoon Total time managing care of this patient today: 35 minutes. Quality Stroke Does the patient have a stroke diagnosis?: No VTE Prior VTE?: No VTE Risk Level:: Medical - moderate - high VTE Device Contraindication: Treatment Not Indicated VTE Drug Contraindication: N/A - Med Ordered
[2024-08-25 19:17] VITALS: BP 123/65; PULSE 81; RESP 16; TEMP 36.6; O2SAT 93
[2024-08-25] MEDS: Atorvastatin Calcium 10 MG TABLET PO (20:41)
[2024-08-25 23:51] VITALS: BP 135/66; PULSE 76; RESP 16; TEMP 36.2; O2SAT 93
[2024-08-26] MEDS: Levothyroxine Sodium 100 MCG TABLET PO (06:33)
[2024-08-26] MEDS: Omeprazole 20 MG CAPSULE.DR PO ×2 (06:33→17:22)
[2024-08-26 07:03] VITALS: BP 138/66; PULSE 83; RESP 18; TEMP 36.3; O2SAT 95
[2024-08-26 07:43] LABS: Glucose, Whole Blood 149 mg/dL (60-115)
[2024-08-26] MEDS: Enoxaparin Sodium 40 MG/0.4 ML SYRINGE SUBCUT (08:19)
[2024-08-26] MEDS: amLODIPine Besylate 5 MG TABLET 10 MG PO (08:20)
[2024-08-26] MEDS: Aspirin 81 MG TAB.CHEW PO (08:20)
[2024-08-26] MEDS: Cholecalciferol (Vitamin D3) 25 MCG TABLET 50 MCG PO (08:21)
[2024-08-26] MEDS: Ferrous Sulfate 300 MG/5 ML LIQUID PO (08:21)
[2024-08-26] MEDS: FLUoxetine HCl 20 MG CAPSULE 40 MG PO (08:21)
--- NOTE | 2024-08-26 11:30 | MHC.CM.PN ---
[facility] RECEIVED AND NOW IN [facility] REFERRALS PLACED TO 24 SNFS WITHIN A 25 MILE RADIUS.
[2024-08-26 11:37] LABS: Glucose, Whole Blood 253 mg/dL (60-115)
[2024-08-26 14:07] LABS: Glucose, Whole Blood 286 mg/dL (60-115)
[2024-08-26] MEDS: Insulin Lispro 100 UNIT/ML 3 ML VIAL SUBCUT ×3 (14:12→20:55)
[2024-08-26 14:25] LABS: Glucose, Whole Blood 189 mg/dL (60-115)
--- NOTE | 2024-08-26 15:06 | HO.PM.IMPN ---
Subjective Subjective Date of Service: 08/26/24 Interval History: No new issues, vital stable. Review of Systems Review of Systems: Yes all other systems are reviewed and are negative Physical Exam Vital Signs: Vital Signs: Last Vital Signs Temp 97.4 F 08/26/24 07:03 Pulse 83 08/26/24 07:03 Resp 18 08/26/24 07:03 BP 138/66 08/26/24 07:03 Pulse Ox 95 08/26/24 07:03 O2 Del Method Room Air 08/26/24 07:03 O2 Flow Rate 2 07/16/24 06:03 BMI result Body Mass Index 24.2 Neck: supple Lungs: clear to auscultation bilaterally Heart: regular rate and rhythm, no murmurs Abd: soft, non-tender, non-distended Ext: no edema Objective Data Active Medications Acetaminophen (Acetaminophen 325 Mg Tablet) 975 mg PO Q6H PRN PRN Reason: Pain, Mild 1-3,fever,headache Last Admin: 08/22/24 09:36 Dose: 975 mg Documented By: YUSUF Amlodipine Besylate (Amlodipine Besylate 5 Mg Tablet) 10 mg PO DAILY [facility]; Protocol Last Admin: 08/26/24 08:20 Dose: 10 mg Documented By: PAULA Aspirin (Aspirin 81 Mg Tab.Chew) 81 mg PO DAILY [facility] Last Admin: 08/26/24 08:20 Dose: 81 mg Documented By: PAULA Atorvastatin Calcium (Atorvastatin Calcium 10 Mg Tablet) 10 mg PO BEDTIME [facility] Last Admin: 08/25/24 20:41 Dose: 10 mg Documented By: ANATOLY Dextrose (Dextrose 50 % 25 Gm/50 Ml Syringe) 25 gm IVPUSH Q15M PRN PRN Reason: HYPOGLYCEMIA STANDING PROTOCOL Enoxaparin Sodium (Enoxaparin Sodium 40 Mg/0.4 Ml Syringe) 40 mg SUBCUT Q24H [facility] Last Admin: 08/26/24 08:19 Dose: 40 mg Documented By: PAULA Ferrous Sulfate (Ferrous Sulfate 300 Mg/5 Ml Liquid) 300 mg PO DAILY [facility] Last Admin: 08/26/24 08:21 Dose: 300 mg Documented By: PAULA Fluoxetine HCl (Fluoxetine Hcl 20 Mg Capsule) 40 mg PO DAILY [facility] Last Admin: 08/26/24 08:21 Dose: 40 mg Documented By: PAULA Glucose (Glucose Gel 15 Gm Gel..Gram.) 15 gm PO Q15M PRN; Protocol PRN Reason: per Hypoglycemia Standing Ord. Insulin Human Lispro (Insulin Lispro 100 Unit/Ml 3 Ml Vial) 0 unit SUBCUT QIDACHS [facility]; Protocol Last Admin: 08/26/24 14:12 Dose: 6 unit Documented By: PAULA Levothyroxine Sodium (Levothyroxine Sodium 100 Mcg Tablet) 100 mcg PO DAILY@0600 [facility] Last Admin: 08/26/24 06:33 Dose: 100 mcg Documented By: ANATOLY Lidocaine (Lidocaine 4 % Patch Adh..Patch) 1 patch TRANSDERMA DAILY PRN PRN Reason: Pain Last Admin: 07/11/24 23:31 Dose: 1 patch Documented By: JOSSUE Omeprazole (Omeprazole 20 Mg Capsule.) 20 mg PO BID@0630,1630 [facility] Last Admin: 08/26/24 06:33 Dose: 20 mg Documented By: ANATOLY Vitamin D (Cholecalciferol (Vitamin D3) 25 Mcg Tablet) 50 mcg PO DAILY [facility] Last Admin: 08/26/24 08:21 Dose: 50 mcg Documented By: PAULA Labs 08/17/24 08:09 08/17/24 08:09 Labs: Laboratory Results - last 24 hr 08/25/24 08/25/24 08/26/24 16:10 19:50 07:08 POC Glucose 160 H 189 H 149 H 08/26/24 08/26/24 11:33 13:59 POC Glucose 253 H 286 H Assessment and Plan (1) Major neurocognitive disorder: Status: Acute Plan for 84yo F with MDD, HTN, HLD, CAD, DM2, hypothyroidism, GERD presented to ED 07/10/24 with visual hallucinations, nausea, and diarrhea treated for UTI while awaiting placement admitted to Medicine 07/19 for decompensation AMS, multifactorial likely underlying cognitive impairment + UTI (completed treatment) - CT negative, TSH a little over-suppressed, B12 normal; per Psychiatry, no capacity; d/c'ed olanzapine; awaiting guardianship - Pt expressed SI 07/27/24 and sitter was placed; CARE Team consult UTI - completed treatment thrombocytosis - per Hematology recommends JAK2 testing on outatient basis [?myeloproliferative disorder such as essential thrombocytosis] diarrhea - resolved AMAURY - resolved gout L wrist, resolved - recent episode of gout on 07/21/2024, treated with colchicine x3 doses and no pain or swelling at this time HTN - continue amlodipine HLD/CAD - continue atorvastatin and ASA DM2, well-controlled - hold Lantus, continue correction-dose lispro, A1c 6.8 hypothyroidism - continue LT4 but on 08/17 lowered dose to 100 mcg/d due to over-suppression of TSH; recheck TSH in 4 wk GERD - PPI mood disorder - fluoxetine VTE ppx - enoxaparin dispo - awaiting guardianship then LTC periodic lab check, last check 08/17, cbc, bmp ok Guargianship hearing today afternoon Total time managing care of this patient today: 35 minutes. Quality Stroke Does the patient have a stroke diagnosis?: No VTE Prior VTE?: No VTE Risk Level:: Medical - moderate - high VTE Device Contraindication: Treatment Not Indicated VTE Drug Contraindication: N/A - Med Ordered
[2024-08-26 15:08] VITALS: BP 136/65; PULSE 96; RESP 18; TEMP 36.4; O2SAT 95
[2024-08-26 16:25] LABS: Glucose, Whole Blood 187 mg/dL (60-115)
[2024-08-26 20:42] LABS: Glucose, Whole Blood 200 mg/dL (60-115)
[2024-08-26] MEDS: Atorvastatin Calcium 10 MG TABLET PO (20:55)
[2024-08-26 23:05] VITALS: BP 106/53; PULSE 83; RESP 16; TEMP 36.2; O2SAT 94
[2024-08-27] MEDS: Levothyroxine Sodium 100 MCG TABLET PO (06:09)
[2024-08-27] MEDS: Omeprazole 20 MG CAPSULE.DR PO ×2 (06:09→16:56)
[2024-08-27 08:03] LABS: Glucose, Whole Blood 167 mg/dL (60-115)
[2024-08-27 08:06] VITALS: BP 175/81; PULSE 95; RESP 12; TEMP 36.4; O2SAT 94
[2024-08-27] MEDS: Insulin Lispro 100 UNIT/ML 3 ML VIAL SUBCUT ×4 (08:12→21:06)
[2024-08-27] MEDS: Ferrous Sulfate 300 MG/5 ML LIQUID PO (08:13)
[2024-08-27] MEDS: Cholecalciferol (Vitamin D3) 25 MCG TABLET 50 MCG PO (08:13)
[2024-08-27] MEDS: Enoxaparin Sodium 40 MG/0.4 ML SYRINGE SUBCUT (08:13)
[2024-08-27] MEDS: FLUoxetine HCl 20 MG CAPSULE 40 MG PO (08:13)
[2024-08-27] MEDS: amLODIPine Besylate 5 MG TABLET 10 MG PO (08:13)
[2024-08-27] MEDS: Aspirin 81 MG TAB.CHEW PO (08:13)
[2024-08-27 11:28] LABS: Glucose, Whole Blood 259 mg/dL (60-115)
--- NOTE | 2024-08-27 11:54 | P.PNIM_ITS ---
Subjective Subjective Date of Service: 08/27/24 Interval History: No new issues, vital stable. Review of Systems Review of Systems: Yes all other systems are reviewed and are negative Physical Exam 2 Vital Signs: Vital Signs: Last Vital Signs Temp 97.5 F 08/27/24 08:06 Pulse 95 08/27/24 08:06 Resp 12 08/27/24 08:06 BP 175/81 H 08/27/24 08:06 Pulse Ox 94 08/27/24 08:06 O2 Del Method Room Air 08/27/24 08:06 O2 Flow Rate 2 07/16/24 06:03 BMI result Body Mass Index 24.2 Neck: supple Lungs: clear to auscultation bilaterally Heart: regular rate and rhythm, no murmurs Abd: soft, non-tender, non-distended Ext: no edema Objective Data Active Medications Acetaminophen (Acetaminophen 325 Mg Tablet) 975 mg PO Q6H PRN PRN Reason: Pain, Mild 1-3,fever,headache Last Admin: 08/22/24 09:36 Dose: 975 mg Documented By: YUSUF Amlodipine Besylate (Amlodipine Besylate 5 Mg Tablet) 10 mg PO DAILY [facility]; Protocol Last Admin: 08/27/24 08:13 Dose: 10 mg Documented By: BRINA Aspirin (Aspirin 81 Mg Tab.Chew) 81 mg PO DAILY [facility] Last Admin: 08/27/24 08:13 Dose: 81 mg Documented By: BRINA Atorvastatin Calcium (Atorvastatin Calcium 10 Mg Tablet) 10 mg PO BEDTIME [facility] Last Admin: 08/26/24 20:55 Dose: 10 mg Documented By: CHRISTIAN Dextrose (Dextrose 50 % 25 Gm/50 Ml Syringe) 25 gm IVPUSH Q15M PRN PRN Reason: HYPOGLYCEMIA STANDING PROTOCOL Enoxaparin Sodium (Enoxaparin Sodium 40 Mg/0.4 Ml Syringe) 40 mg SUBCUT Q24H [facility] Last Admin: 08/27/24 08:13 Dose: 40 mg Documented By: BRINA Ferrous Sulfate (Ferrous Sulfate 300 Mg/5 Ml Liquid) 300 mg PO DAILY [facility] Last Admin: 08/27/24 08:13 Dose: 300 mg Documented By: BRINA Fluoxetine HCl (Fluoxetine Hcl 20 Mg Capsule) 40 mg PO DAILY [facility] Last Admin: 08/27/24 08:13 Dose: 40 mg Documented By: BRINA Glucose (Glucose Gel 15 Gm Gel..Gram.) 15 gm PO Q15M PRN; Protocol PRN Reason: per Hypoglycemia Standing Ord. Insulin Human Lispro (Insulin Lispro 100 Unit/Ml 3 Ml Vial) 0 unit SUBCUT QIDACHS [facility]; Protocol Last Admin: 08/27/24 11:53 Dose: 6 unit Documented By: BRINA Levothyroxine Sodium (Levothyroxine Sodium 100 Mcg Tablet) 100 mcg PO DAILY@0600 [facility] Last Admin: 08/27/24 06:09 Dose: 100 mcg Documented By: CHRISTIAN Lidocaine (Lidocaine 4 % Patch Adh..Patch) 1 patch TRANSDERMA DAILY PRN PRN Reason: Pain Last Admin: 07/11/24 23:31 Dose: 1 patch Documented By: JOSSUE Omeprazole (Omeprazole 20 Mg Capsule.Dr) 20 mg PO BID@0630,1630 [facility] Last Admin: 08/27/24 06:09 Dose: 20 mg Documented By: CHRISTIAN Vitamin D (Cholecalciferol (Vitamin D3) 25 Mcg Tablet) 50 mcg PO DAILY [facility] Last Admin: 08/27/24 08:13 Dose: 50 mcg Documented By: BRINA Labs 08/17/24 08:09 08/17/24 08:09 Labs: Laboratory Results - last 24 hr 08/25/24 08/26/24 08/26/24 19:50 13:59 16:08 POC Glucose 189 H 286 H 187 H 08/26/24 08/27/24 08/27/24 20:30 07:55 11:22 POC Glucose 200 H 167 H 259 H Assessment and Plan (1) Major neurocognitive disorder: Status: Acute Plan for 84yo F with MDD, HTN, HLD, CAD, DM2, hypothyroidism, GERD presented to ED 07/10/24 with visual hallucinations, nausea, and diarrhea treated for UTI while awaiting placement admitted to Medicine 07/19 for decompensation AMS, multifactorial likely underlying cognitive impairment + UTI (completed treatment) - CT negative, TSH a little over-suppressed, B12 normal; per Psychiatry, no capacity; d/c'ed olanzapine; awaiting guardianship - Pt expressed SI 07/27/24 and sitter was placed; CARE Team consult UTI - completed treatment thrombocytosis - per Hematology recommends JAK2 testing on outatient basis [?myeloproliferative disorder such as essential thrombocytosis] diarrhea - resolved AMAURY - resolved gout L wrist, resolved - recent episode of gout on 07/21/2024, treated with colchicine x3 doses and no pain or swelling at this time HTN - continue amlodipine HLD/CAD - continue atorvastatin and ASA DM2, well-controlled - hold Lantus, continue correction-dose lispro, A1c 6.8 hypothyroidism - continue LT4 but on 08/17 lowered dose to 100 mcg/d due to over-suppression of TSH; recheck TSH in 4 wk GERD - PPI mood disorder - fluoxetine VTE ppx - enoxaparin dispo - awaiting guardianship then LTC periodic lab check, last check 08/17, cbc, bmp ok Guargianship hearing today afternoon Total time managing care of this patient today: 35 minutes. Quality Stroke Does the patient have a stroke diagnosis?: No VTE Prior VTE?: No VTE Risk Level:: Medical - moderate - high VTE Device Contraindication: Treatment Not Indicated VTE Drug Contraindication: N/A - Med Ordered
[2024-08-27 15:59] VITALS: BP 125/60; PULSE 89; RESP 18; TEMP 36.5; O2SAT 94
[2024-08-27 16:46] LABS: Glucose, Whole Blood 167 mg/dL (60-115)
[2024-08-27 20:39] LABS: Glucose, Whole Blood 248 mg/dL (60-115)
[2024-08-27] MEDS: Atorvastatin Calcium 10 MG TABLET PO (21:06)
[2024-08-27 23:25] VITALS: BP 117/56; PULSE 81; RESP 16; TEMP 36.2; O2SAT 95
[2024-08-28] MEDS: Omeprazole 20 MG CAPSULE.DR PO ×2 (06:20→16:28)
[2024-08-28] MEDS: Levothyroxine Sodium 100 MCG TABLET PO (06:20)
[2024-08-28 07:58] LABS: Glucose, Whole Blood 164 mg/dL (60-115)
[2024-08-28 08:10] VITALS: BP 143/76; PULSE 87; RESP 12; TEMP 36.7; O2SAT 93
[2024-08-28] MEDS: Insulin Lispro 100 UNIT/ML 3 ML VIAL SUBCUT ×4 (08:47→20:54)
[2024-08-28] MEDS: Cholecalciferol (Vitamin D3) 25 MCG TABLET 50 MCG PO (08:48)
[2024-08-28] MEDS: Ferrous Sulfate 300 MG/5 ML LIQUID PO (08:48)
[2024-08-28] MEDS: Aspirin 81 MG TAB.CHEW PO (08:48)
[2024-08-28] MEDS: Enoxaparin Sodium 40 MG/0.4 ML SYRINGE SUBCUT (08:48)
[2024-08-28] MEDS: amLODIPine Besylate 5 MG TABLET 10 MG PO (08:48)
[2024-08-28] MEDS: FLUoxetine HCl 20 MG CAPSULE 40 MG PO (08:48)
[2024-08-28 11:50] LABS: Glucose, Whole Blood 202 mg/dL (60-115)
--- NOTE | 2024-08-28 14:35 | HO.PM.IMPN ---
Subjective Subjective Date of Service: 08/28/24 Interval History: No new issues, vital stable. Review of Systems Review of Systems: Yes all other systems are reviewed and are negative Physical Exam Vital Signs: Vital Signs: Last Vital Signs Temp 98.0 F 08/28/24 08:10 Pulse 87 08/28/24 08:10 Resp 12 08/28/24 08:10 BP 143/76 H 08/28/24 08:10 Pulse Ox 93 08/28/24 08:10 O2 Del Method Room Air 08/28/24 08:10 O2 Flow Rate 2 07/16/24 06:03 BMI result Body Mass Index 24.2 Neck: supple Lungs: clear to auscultation bilaterally Heart: regular rate and rhythm, no murmurs Abd: soft, non-tender, non-distended Ext: no edema Objective Data Active Medications Acetaminophen (Acetaminophen 325 Mg Tablet) 975 mg PO Q6H PRN PRN Reason: Pain, Mild 1-3,fever,headache Last Admin: 08/22/24 09:36 Dose: 975 mg Documented By: YUSUF Amlodipine Besylate (Amlodipine Besylate 5 Mg Tablet) 10 mg PO DAILY [facility]; Protocol Last Admin: 08/28/24 08:48 Dose: 10 mg Documented By: LATOSHA Aspirin (Aspirin 81 Mg Tab.Chew) 81 mg PO DAILY [facility] Last Admin: 08/28/24 08:48 Dose: 81 mg Documented By: LATOSHA Atorvastatin Calcium (Atorvastatin Calcium 10 Mg Tablet) 10 mg PO BEDTIME [facility] Last Admin: 08/27/24 21:06 Dose: 10 mg Documented By: NATHANIEL Dextrose (Dextrose 50 % 25 Gm/50 Ml Syringe) 25 gm IVPUSH Q15M PRN PRN Reason: HYPOGLYCEMIA STANDING PROTOCOL Enoxaparin Sodium (Enoxaparin Sodium 40 Mg/0.4 Ml Syringe) 40 mg SUBCUT Q24H [facility] Last Admin: 08/28/24 08:48 Dose: 40 mg Documented By: LATOSHA Ferrous Sulfate (Ferrous Sulfate 300 Mg/5 Ml Liquid) 300 mg PO DAILY [facility] Last Admin: 08/28/24 08:48 Dose: 300 mg Documented By: LATOSHA Fluoxetine HCl (Fluoxetine Hcl 20 Mg Capsule) 40 mg PO DAILY [facility] Last Admin: 08/28/24 08:48 Dose: 40 mg Documented By: LATOSHA Glucose (Glucose Gel 15 Gm Gel..Gram.) 15 gm PO Q15M PRN; Protocol PRN Reason: per Hypoglycemia Standing Ord. Insulin Human Lispro (Insulin Lispro 100 Unit/Ml 3 Ml Vial) 0 unit SUBCUT QIDACHS [facility]; Protocol Last Admin: 08/28/24 11:52 Dose: 4 unit Documented By: LATOSHA Levothyroxine Sodium (Levothyroxine Sodium 100 Mcg Tablet) 100 mcg PO DAILY@0600 [facility] Last Admin: 08/28/24 06:20 Dose: 100 mcg Documented By: CHRISTIAN Lidocaine (Lidocaine 4 % Patch Adh..Patch) 1 patch TRANSDERMA DAILY PRN PRN Reason: Pain Last Admin: 07/11/24 23:31 Dose: 1 patch Documented By: JOSSUE Omeprazole (Omeprazole 20 Mg Capsule.Dr) 20 mg PO BID@0630,1630 [facility] Last Admin: 08/28/24 06:20 Dose: 20 mg Documented By: CHRISTIAN Vitamin D (Cholecalciferol (Vitamin D3) 25 Mcg Tablet) 50 mcg PO DAILY [facility] Last Admin: 08/28/24 08:48 Dose: 50 mcg Documented By: LATOSHA Labs 08/17/24 08:09 08/17/24 08:09 Labs: Laboratory Results - last 24 hr 08/27/24 08/27/24 08/28/24 16:42 20:31 07:49 POC Glucose 167 H 248 H 164 H 08/28/24 11:46 POC Glucose 202 H Assessment and Plan (1) Major neurocognitive disorder: Status: Acute Plan for 84yo F with MDD, HTN, HLD, CAD, DM2, hypothyroidism, GERD presented to ED 07/10/24 with visual hallucinations, nausea, and diarrhea treated for UTI while awaiting placement admitted to Medicine 07/19 for decompensation AMS, multifactorial likely underlying cognitive impairment + UTI (completed treatment) - CT negative, TSH a little over-suppressed, B12 normal; per Psychiatry, no capacity; d/c'ed olanzapine; awaiting guardianship - Pt expressed SI 07/27/24 and sitter was placed; CARE Team consult UTI - completed treatment thrombocytosis - per Hematology recommends JAK2 testing on outatient basis [?myeloproliferative disorder such as essential thrombocytosis] diarrhea - resolved AMAURY - resolved gout L wrist, resolved - recent episode of gout on 07/21/2024, treated with colchicine x3 doses and no pain or swelling at this time HTN - continue amlodipine HLD/CAD - continue atorvastatin and ASA DM2, well-controlled - hold Lantus, continue correction-dose lispro, A1c 6.8 hypothyroidism - continue LT4 but on 08/17 lowered dose to 100 mcg/d due to over-suppression of TSH; recheck TSH in 4 wk GERD - PPI mood disorder - fluoxetine VTE ppx - enoxaparin dispo - awaiting guardianship then LTC periodic lab check, last check 08/17, cbc, bmp ok Guargianship hearing today afternoon Total time managing care of this patient today: 35 minutes. Quality Stroke Does the patient have a stroke diagnosis?: No VTE Prior VTE?: No VTE Risk Level:: Medical - moderate - high VTE Device Contraindication: Treatment Not Indicated VTE Drug Contraindication: N/A - Med Ordered
[2024-08-28 15:46] VITALS: BP 143/61; PULSE 86; RESP 18; TEMP 36.7; O2SAT 93
[2024-08-28 16:21] LABS: Glucose, Whole Blood 177 mg/dL (60-115)
[2024-08-28 20:35] LABS: Glucose, Whole Blood 252 mg/dL (60-115)
[2024-08-28] MEDS: Atorvastatin Calcium 10 MG TABLET PO (20:54)
[2024-08-28 23:23] VITALS: BP 126/71; PULSE 81; RESP 18; TEMP 36.2; O2SAT 97
[2024-08-29] MEDS: Levothyroxine Sodium 100 MCG TABLET PO (05:53)
[2024-08-29] MEDS: Omeprazole 20 MG CAPSULE.DR PO ×2 (05:53→16:27)
[2024-08-29 07:28] LABS: Glucose, Whole Blood 164 mg/dL (60-115)
[2024-08-29] MEDS: Insulin Lispro 100 UNIT/ML 3 ML VIAL SUBCUT ×4 (07:57→20:29)
[2024-08-29] MEDS: FLUoxetine HCl 20 MG CAPSULE 40 MG PO (07:58)
[2024-08-29] MEDS: Enoxaparin Sodium 40 MG/0.4 ML SYRINGE SUBCUT (07:58)
[2024-08-29] MEDS: Aspirin 81 MG TAB.CHEW PO (07:58)
[2024-08-29] MEDS: Cholecalciferol (Vitamin D3) 25 MCG TABLET 50 MCG PO (07:58)
[2024-08-29] MEDS: amLODIPine Besylate 5 MG TABLET 10 MG PO (07:58)
[2024-08-29 07:59] VITALS: BP 110/73; PULSE 90; RESP 18; TEMP 37; O2SAT 95
[2024-08-29] MEDS: Ferrous Sulfate 300 MG/5 ML LIQUID PO (07:59)
[2024-08-29 11:31] LABS: Glucose, Whole Blood 227 mg/dL (60-115)
--- NOTE | 2024-08-29 14:20 | MHC.CM.PN ---
CM SENT MORE UPDATES TO [facility] FOR POSSIBLE LTC PLACEMENT. CM AWAITING FINAL DECISION BY CENTER.
[2024-08-29 15:24] VITALS: BP 136/67; PULSE 91; RESP 18; TEMP 36.3; O2SAT 95
[2024-08-29 16:06] LABS: Glucose, Whole Blood 172 mg/dL (60-115)
--- NOTE | 2024-08-29 17:22 | HO.PM.IMPN ---
Subjective Subjective Date of Service: 08/29/24 Interval History: No new issues, vital stable. Review of Systems as above Physical Exam Vital Signs: Vital Signs: Last Vital Signs Temp 97.4 F 08/29/24 15:24 Pulse 91 08/29/24 15:24 Resp 18 08/29/24 15:24 BP 136/67 08/29/24 15:24 Pulse Ox 95 08/29/24 15:24 O2 Del Method Room Air 08/29/24 15:24 O2 Flow Rate 2 07/16/24 06:03 BMI result Body Mass Index 24.2 Neck: supple Lungs: clear to auscultation bilaterally Heart: regular rate and rhythm, no murmurs Abd: soft, non-tender, non-distended Ext: no edema Objective Data Active Medications Acetaminophen (Acetaminophen 325 Mg Tablet) 975 mg PO Q6H PRN PRN Reason: Pain, Mild 1-3,fever,headache Last Admin: 08/22/24 09:36 Dose: 975 mg Documented By: YUSUF Amlodipine Besylate (Amlodipine Besylate 5 Mg Tablet) 10 mg PO DAILY [facility]; Protocol Last Admin: 08/29/24 07:58 Dose: 10 mg Documented By: BRINA Aspirin (Aspirin 81 Mg Tab.Chew) 81 mg PO DAILY [facility] Last Admin: 08/29/24 07:58 Dose: 81 mg Documented By: BRINA Atorvastatin Calcium (Atorvastatin Calcium 10 Mg Tablet) 10 mg PO BEDTIME [facility] Last Admin: 08/28/24 20:54 Dose: 10 mg Documented By: LETICIA Dextrose (Dextrose 50 % 25 Gm/50 Ml Syringe) 25 gm IVPUSH Q15M PRN PRN Reason: HYPOGLYCEMIA STANDING PROTOCOL Enoxaparin Sodium (Enoxaparin Sodium 40 Mg/0.4 Ml Syringe) 40 mg SUBCUT Q24H [facility] Last Admin: 08/29/24 07:58 Dose: 40 mg Documented By: BRINA Ferrous Sulfate (Ferrous Sulfate 300 Mg/5 Ml Liquid) 300 mg PO DAILY [facility] Last Admin: 08/29/24 07:59 Dose: 300 mg Documented By: BRINA Fluoxetine HCl (Fluoxetine Hcl 20 Mg Capsule) 40 mg PO DAILY [facility] Last Admin: 08/29/24 07:58 Dose: 40 mg Documented By: BRINA Glucose (Glucose Gel 15 Gm Gel..Gram.) 15 gm PO Q15M PRN; Protocol PRN Reason: per Hypoglycemia Standing Ord. Insulin Human Lispro (Insulin Lispro 100 Unit/Ml 3 Ml Vial) 0 unit SUBCUT QIDACHS [facility]; Protocol Last Admin: 08/29/24 16:27 Dose: 2 unit Documented By: BRINA Levothyroxine Sodium (Levothyroxine Sodium 100 Mcg Tablet) 100 mcg PO DAILY@0600 [facility] Last Admin: 08/29/24 05:53 Dose: 100 mcg Documented By: ANATOLY Lidocaine (Lidocaine 4 % Patch Adh..Patch) 1 patch TRANSDERMA DAILY PRN PRN Reason: Pain Last Admin: 07/11/24 23:31 Dose: 1 patch Documented By: JOSSUE Omeprazole (Omeprazole 20 Mg Capsule.Dr) 20 mg PO BID@0630,1630 [facility] Last Admin: 08/29/24 16:27 Dose: 20 mg Documented By: BRINA Vitamin D (Cholecalciferol (Vitamin D3) 25 Mcg Tablet) 50 mcg PO DAILY [facility] Last Admin: 08/29/24 07:58 Dose: 50 mcg Documented By: BRINA Labs 08/17/24 08:09 08/17/24 08:09 Labs: Laboratory Results - last 24 hr 08/25/24 08/25/24 08/25/24 07:09 11:00 16:10 POC Glucose 157 H 238 H 160 H 08/25/24 08/26/24 08/26/24 19:50 07:08 11:33 POC Glucose 189 H 149 H 253 H 08/26/24 08/26/24 08/26/24 13:59 16:08 20:30 POC Glucose 286 H 187 H 200 H 08/28/24 08/29/24 08/29/24 20:28 07:16 11:20 POC Glucose 252 H 164 H 227 H 08/29/24 15:55 POC Glucose 172 H Assessment and Plan (1) Major neurocognitive disorder: Status: Acute Plan for 84yo F with MDD, HTN, HLD, CAD, DM2, hypothyroidism, GERD presented to ED 07/10/24 with visual hallucinations, nausea, and diarrhea treated for UTI while awaiting placement admitted to Medicine 07/19 for decompensation AMS, multifactorial likely underlying cognitive impairment + UTI (completed treatment) - CT negative, TSH a little over-suppressed, B12 normal; per Psychiatry, no capacity; d/c'ed olanzapine; awaiting guardianship - Pt expressed SI 07/27/24 and sitter was placed; CARE Team consult UTI - completed treatment thrombocytosis - per Hematology recommends JAK2 testing on outatient basis [?myeloproliferative disorder such as essential thrombocytosis] diarrhea - resolved AMAURY - resolved gout L wrist, resolved - recent episode of gout on 07/21/2024, treated with colchicine x3 doses and no pain or swelling at this time HTN - continue amlodipine HLD/CAD - continue atorvastatin and ASA DM2, well-controlled - hold Lantus, continue correction-dose lispro, A1c 6.8 hypothyroidism - continue LT4 but on 08/17 lowered dose to 100 mcg/d due to over-suppression of TSH; recheck TSH in 4 wk GERD - PPI mood disorder - fluoxetine VTE ppx - enoxaparin dispo - awaiting guardianship then LTC periodic lab check, last check 08/17, cbc, bmp ok Guargianship hearing today afternoon Total time managing care of this patient today: 35 minutes. Quality Stroke Does the patient have a stroke diagnosis?: No VTE Prior VTE?: No VTE Risk Level:: Medical - moderate - high VTE Device Contraindication: Treatment Not Indicated VTE Drug Contraindication: N/A - Med Ordered
[2024-08-29 20:25] LABS: Glucose, Whole Blood 228 mg/dL (60-115)
[2024-08-29] MEDS: Atorvastatin Calcium 10 MG TABLET PO (20:29)
[2024-08-29 23:42] VITALS: BP 139/76; PULSE 85; RESP 17; TEMP 36; O2SAT 95
[2024-08-30] MEDS: Omeprazole 20 MG CAPSULE.DR PO ×2 (05:24→16:27)
[2024-08-30] MEDS: Levothyroxine Sodium 100 MCG TABLET PO (05:24)
[2024-08-30 06:34] LABS: Hematocrit 38.6 % (37.0-47.0); Hemoglobin 11.9 g/dl (12.0-16.0); Mean Corpuscular HGB Conc 30.8 g/dl (31.0-35.0); Mean Corpuscular Hemoglobin 23.2 pg (27.0-33.0); Mean Corpuscular Volume 75.4 fL (80.0-98.0); Mean Platelet Volume 9.7 fL (9.4-12.3); Platelet Count 685 X10*3/uL (160-400); Red Blood Count 5.12 X10*6/uL (4.20-5.50); Red Cell Distribution Width 19.7 % (11.0-16.0); White Blood Count 10.1 X10*3/uL (4.8-10.8)
[2024-08-30 06:49] LABS: Anion Gap 11 (12-20); Blood Urea Nitrogen 24 mg/dL (9-16); Calcium 9.5 mg/dL (8.4-10.2); Carbon Dioxide 25 mmol/L (22-29); Chloride 106 mmol/L (96-108); Creatinine Clr Calc Pharmacy 42.8; Estimated Glomerular Filt Rate 52; Glucose Random 178 mg/dL (60-115); Potassium 4.3 mmol/L (3.3-5.1); Sodium 138 mmol/L (135-145)
[2024-08-30 07:25] LABS: Glucose, Whole Blood 170 mg/dL (60-115)
[2024-08-30] MEDS: Insulin Lispro 100 UNIT/ML 3 ML VIAL SUBCUT ×4 (07:38→21:37)
[2024-08-30 07:50] VITALS: BP 137/62; PULSE 86; RESP 17; TEMP 37.3; O2SAT 92
[2024-08-30] MEDS: Enoxaparin Sodium 40 MG/0.4 ML SYRINGE SUBCUT (08:08)
[2024-08-30] MEDS: Ferrous Sulfate 300 MG/5 ML LIQUID PO (08:08)
[2024-08-30] MEDS: Cholecalciferol (Vitamin D3) 25 MCG TABLET 50 MCG PO (08:09)
[2024-08-30] MEDS: Aspirin 81 MG TAB.CHEW PO (08:09)
[2024-08-30] MEDS: amLODIPine Besylate 5 MG TABLET 10 MG PO (08:09)
[2024-08-30] MEDS: FLUoxetine HCl 20 MG CAPSULE 40 MG PO (08:09)
[2024-08-30 11:09] LABS: Glucose, Whole Blood 232 mg/dL (60-115)
[2024-08-30 15:36] VITALS: BP 145/72; PULSE 95; RESP 18; TEMP 37.6; O2SAT 95
[2024-08-30 16:13] LABS: Glucose, Whole Blood 174 mg/dL (60-115)
[2024-08-30] MEDS: Atorvastatin Calcium 10 MG TABLET PO (19:52)
[2024-08-30 21:07] LABS: Glucose, Whole Blood 261 mg/dL (60-115)
[2024-08-30 23:34] VITALS: BP 124/60; PULSE 80; RESP 16; TEMP 36.5; O2SAT 95
[2024-08-31] MEDS: Omeprazole 20 MG CAPSULE.DR PO (05:25)
[2024-08-31] MEDS: Levothyroxine Sodium 100 MCG TABLET PO (05:25)
[2024-08-31 07:28] VITALS: BP 124/60; PULSE 80; O2SAT 95
[2024-08-31 07:31] LABS: Glucose, Whole Blood 160 mg/dL (60-115)
[2024-08-31 07:33] VITALS: BP 143/70; PULSE 90; RESP 17; TEMP 36.4; O2SAT 96
[2024-08-31] MEDS: Insulin Lispro 100 UNIT/ML 3 ML VIAL SUBCUT ×2 (07:48→11:53)
[2024-08-31] MEDS: Enoxaparin Sodium 40 MG/0.4 ML SYRINGE SUBCUT (07:49)
[2024-08-31 07:50] VITALS: BP 143/70
[2024-08-31] MEDS: FLUoxetine HCl 20 MG CAPSULE 40 MG PO (07:50)
[2024-08-31] MEDS: amLODIPine Besylate 5 MG TABLET 10 MG PO (07:50)
[2024-08-31] MEDS: Cholecalciferol (Vitamin D3) 25 MCG TABLET 50 MCG PO (07:51)
[2024-08-31] MEDS: Aspirin 81 MG TAB.CHEW PO (07:51)
[2024-08-31] MEDS: Ferrous Sulfate 300 MG/5 ML LIQUID PO (07:51)
--- NOTE | 2024-08-31 09:03 | MHC.CM.PN ---
[facility] has accepted patient for LTC. BLS transport scheduled for 1pm. , RN and guardian aware. Also LM for [facility] (OLAF Tsang @ [phone]), who was providing services in the community and can follow for potential return to community. IMM delivered.
--- NOTE | 2024-08-31 10:20 | PM.DS ---
DS: Providers Provider Date of Service: 08/31/24 <Tobi Coronel MD - Last Filed: 08/31/24 10:51> Date of admission: 07/25/24 20:54 <Tobi Coronel MD - Last Filed: 08/31/24 10:51> Date of discharge: 08/31/24 <Tobi Coronel MD - Last Filed: 08/31/24 10:51> Primary care physician: CLEM Hastings <Tobi Coronel MD - Last Filed: 08/31/24 10:51> Consults: 07/10/24 14:57 Consult to Care Team Stat Comment: Reason for consultation: hallucinations 07/10/24 16:52 Consult to Psychiatry Stat Consulting [place] [facility] [place] Reason for consultation: hallucinations, aggresive 07/11/24 17:36 Consult to Case Management Stat Comment: 07/26/24 11:59 Consult to Hematology / Oncology Routine Consulting Provider: [facility] [place] Reason for consultation: chronic leukocytosis and thrombocytosis Has provider been notified: Yes 07/26/24 21:02 Consult to Wound Care Routine Reason for consultation: blanchable redness to coccyx 08/17/24 13:11 Consult to Care Team Routine Comment: Reason for consultation: SI 07/27/24- no followup done <Tobi Coronel MD - Last Filed: 08/31/24 10:51> DS: Diagnosis Discharge Diagnosis (1) Major neurocognitive disorder: Status: Acute <Tobi Coronel MD - Last Filed: 08/31/24 10:51> DS: Summary Hospital Course Hospital Course: Admission hpi Chief Complaint: nausea, diarrhea, visual hallucinations Patient is an 84-year-old female with a past medical history significant for major depressive disorder, HTN, HLD, CAD, IDDM, hypothyroid and GERD, presented to the ED on 07/10/2024 with visual hallucinations, nausea and severe diarrhea and has been monitored in ED overflow since. She reported the diarrhea had been occurring 4 days and when EMS arrived there was diarrhea all over her house. She denies any blood in the stool or any strange color or odor. She states this has been occurring at least 4 times a day and describes it as watery with abdominal cramping in the left lower quadrant. It does report recent antibiotics by her primary care provider. She also has some urinary symptoms including dysuria, frequency and urgency. Patient denies any confusion however there have been multiple reports by nursing that she is intermittently confused. Patient has been followed by case management, awaiting guardianship. On 07/21/2024 patient was also complaining of left wrist pain, ortho seen and ruled out septic joint. Patient received 3 doses of colchicine and pain, edema and erythema resolved. Hospital course: 84yo F with MDD, HTN, HLD, CAD, DM2, hypothyroidism, and GERD presented to the ED on 07/10/24 with visual hallucinations, nausea, and diarrhea. She was found to have a UTI and was treated with the goal of placement from the emergency department; however, she decompensated and was admitted for further management. The patient was ultimately deemed incompetent, and guardianship was pursued. Her AMS is attributed to multifactorial causes, including underlying cognitive impairment, likley unspecified dementia and UTI. Testing included a negative CT of the head, normal B12, and mildly suppressed TSH. She was seen by Psychiatry and deemed to have no capacity. She had SI on one occasion, evaluated and cleared by the CARE team. The patient?s prolonged hospitalization was not due to acute medical needs but rather due to the process of obtaining a guardian and arranging placement. She had a guardianship hearing on August 22, and guardianship was granted to Gisella Thomas, . Other problems: Thrombocytosis ? per Hematology, JAK2 testing recommended on an outpatient basis [?myeloproliferative disorder such as essential thrombocytosis]. Diarrhea ? resolved. AMAURY ? likely due to dehydration, resolved. Cr as of 08/30 was 1.02. Gout, L wrist ? seen by Ortho. Recent episode on 07/21/2024, treated with colchicine x3 doses with no pain or swelling at this time. HTN ? continue amlodipine. HLD/CAD ? continue atorvastatin and ASA. DM2 ? well-controlled, hemoglobin A1C 6.8. Lantus has been reduced from 60 units daily to 12, Continue sliding scale insulin and diabetic diet Hypothyroidism ? continue levothyroxine. On 08/17, dose lowered to 100 mcg/d due to over-suppression of TSH; recheck TSH in 4 weeks. GERD ? continue PPI. Mood disorder ? continue fluoxetine. Dispo: PT recommend [facility] <Tobi Coronel MD - Last Filed: 08/31/24 10:51> Time Attestation Discharge Coordination Time (in mins): 40 <Tobi Coronel MD - Last Filed: 08/31/24 10:51> Quality: Safe Use of Opioids Does Pt have an Active Cancer Diagnosis on the Problem List?: No <Tobi Coronel MD - Last Filed: 08/31/24 10:51> Quality: Stroke Does the patient have a stroke diagnosis?: No <Tobi Coronel MD - Last Filed: 08/31/24 10:51> Physical Exam Vital Signs: Vital Signs: Last Vital Signs Temp 97.5 F 08/31/24 07:33 Pulse 90 08/31/24 07:33 Resp 17 08/31/24 07:33 BP 143/70 H 08/31/24 07:50 Pulse Ox 96 08/31/24 07:33 O2 Del Method Room Air 08/31/24 07:33 O2 Flow Rate 2 07/16/24 06:03 BMI result Body Mass Index 24.2 <Tobi Coronel MD - Last Filed: 08/31/24 10:51> Const: Other: Gen: in no acute distress HEENT: sclera anicteric, moist mucus membranes Neck: supple Lungs: clear to auscultation bilaterally Heart: regular rate and rhythm, no murmurs Abd: soft, non-tender, non-distended Ext: no edema Skin: warm/well-perfused Neuro: alert and oriented to self and place, moving all extremities Psych: appropriate affect <Rigo Perla MD - Last Filed: 08/31/24 10:57> DS: Data Data Completed and Pending Labs on day of discharge: Laboratory Results - last 24 hr 08/30/24 08/30/24 08/30/24 11:05 16:07 20:49 POC Glucose 232 H 174 H 261 H 08/31/24 07:27 POC Glucose 160 H <Tobi Coronel MD - Last Filed: 08/31/24 10:51> Discharge Plan Discharge Anticipated Discharge Date/Time: 08/31/24 10:01 <Tobi Coronel MD - Last Filed: 08/31/24 10:51> Patient Disposition: Xfer SNF <Tobi Coronel MD - Last Filed: 08/31/24 10:51> Discharge Diagnosis: Cognitive impairment, UTI, AMAURY, thrombocytosis <Tobi Coronel MD - Last Filed: 08/31/24 10:51> Cognitive impairment, UTI, AMAURY, thrombocytosis <Rigo Perla MD - Last Filed: 08/31/24 10:57> Referrals: Cassia Phan MD [Physician] - 2 Weeks (thrombocytosis) Mat Olivo, [facility]- [Primary Care Provider] - <Tobi Coronel MD - Last Filed: 08/31/24 10:51> Discharge Medications: New levothyroxine [Synthroid] 100 mcg Tablet 100 mcg PO DAILY@0600 Qty: 30 0RF insulin lispro [Admelog U-100 Insulin lispro] 100 unit/mL Solution See Protocol subcut QIDACHS Qty: 10 0RF Protocol: Insulin Correction Scale Less than or equal to 110 ---- Give (units): 0 111 to 150 Give (units): 0 151 to 200 Give (units): 2 201 to 250 Give (units): 4 251 to 300 Give (units): 6 301 to 350 Give (units): 8 Greater than 350 Give (units): 10 Call MD if Blood Glucose > : 350 Rx Instructions: BG <111 0 units, 111-150 - 0 units, 151-200 2 units, 201-250 4 units, 251-300 6 units, 301-350 8 units, >350 10 units Continued aspirin 81 mg Tablet,Chewable 81 mg PO DAILY bupropion HCl 200 mg tablet sustained-release 12 hr 200 mg PO BID fluoxetine 40 mg capsule 40 mg PO DAILY Qty: 0 0RF atorvastatin 10 mg Tablet 10 mg PO BEDTIME Qty: 30 0RF amlodipine 5 mg tablet 10 mg PO DAILY acetaminophen 325 mg Tablet 650 mg PO Q4H PRN (Reason: Pain) lidocaine 5 % Adhesive Patch,Medicated 1 patch TOPICAL DAILY PRN (Reason: Pain) Rx Instructions: leave on most painful area for up to 12 hrs cholecalciferol (vitamin D3) [Vitamin D3] 50 mcg (2,000 unit) Tablet 50 mcg PO DAILY omeprazole 20 mg capsule,delayed release(DR/EC) 20 mg PO BID Changed insulin glargine [Lantus Solostar U-100 Insulin] 100 unit/mL (3 mL) insulin pen 12 unit subcut DAILY Qty: 15 0RF Discontinued levothyroxine 112 mcg tablet 112 mcg PO DAILY@0600 nystatin [Nystop] 100,000 unit/gram powder 1 appl topical BID-TID celecoxib 100 mg capsule 100 mg PO BID PRN (Reason: Pain) olanzapine 5 mg Tablet 5 mg PO DAILY <Tobi Coronel MD - Last Filed: 08/31/24 10:51> Discharge Orders: Discharge Order (Routine); Ordered 08/31/24 Ordered By: Rigo Perla <Tobi Coronel MD - Last Filed: 08/31/24 10:51> Diet: Diabetic diet <Tobi Coronel MD - Last Filed: 08/31/24 10:51> Diabetic diet <Rigo Perla MD - Last Filed: 08/31/24 10:57> Activity on Discharge: As tolerated <Tobi Coronel MD - Last Filed: 08/31/24 10:51> As tolerated <Rigo Perla MD - Last Filed: 08/31/24 10:57> Stand Alone Forms: Patient Portal Discharge page <Tobi Coronel MD - Last Filed: 08/31/24 10:51> Print Language: Turkish <Tobi Coronel MD - Last Filed: 08/31/24 10:51> Care Plan Goals: Safe placement for advance cognitive impairment <Tobi Coronel MD - Last Filed: 08/31/24 10:51> Health Concerns: Diabetes Hypothyroidism Thrombocytosis <Tobi Coronel MD - Last Filed: 08/31/24 10:51> Plan of Treatment: Outpatient follow-up with primary care physician call for appointment Recommend outpatient follow-up with Hematology for STIVEN 2 testing to rule out myeloproliferative disorder Check TSH in 4 weeks, levothyroxine reduced to 100 mcg from 112 mcg d/t suppressed tsh continue Lantus at 12 units daily (60 units at home), continue sliding scale <Tobi Coronel MD - Last Filed: 08/31/24 10:51> Assessment: As above <Tobi Coronel MD - Last Filed: 08/31/24 10:51>
--- NOTE | 2024-08-31 10:41 | PC.NURSE ---
Attempted to call Nursing report to [facility] at [phone] Pt being discharged at 1300 . No answer on nursing unit.
[2024-08-31 11:51] LABS: Glucose, Whole Blood 195 mg/dL (60-115)
[2024-08-31 13:23] VITALS: BP 125/58; PULSE 92; TEMP 37; O2SAT 100
== END 2024-08-31 14:00 | disposition skilled nursing facility (03) | DRG 689 ==
LOC: HO.ED 07-22 19:42 → HO.EDOVER 07-25 20:59 → HO.S3 07-26 17:29
PROVIDERS: Family Medicine; Hospitalist; Internal Medicine; Physician Assistant Medical; Social Worker; Admitting Provider Internal Medicine; Emergency Provider Emergency Medicine Emergency Medical Services; PCP Nurse Practitioner Family; Visit Provider Hospitalist
DX: N39.0 Urinary tract infection, site not specified (principal); G93.41 Metabolic encephalopathy; F33.1 Major depressive disorder, recurrent, moderate; N17.9 Acute kidney failure, unspecified; I25.10 Atherosclerotic heart disease of native coronary artery without angina pectoris; E03.9 Hypothyroidism, unspecified; M10.9 Gout, unspecified; E78.5 Hyperlipidemia, unspecified; D50.9 Iron deficiency anemia, unspecified; D47.3 Essential (hemorrhagic) thrombocythemia; I10 Essential (primary) hypertension; R19.7 Diarrhea, unspecified; E11.9 Type 2 diabetes mellitus without complications; B96.89 Other specified bacterial agents as the cause of diseases classified elsewhere; K21.9 Gastro-esophageal reflux disease without esophagitis; F03.90 Unspecified dementia, unspecified severity, without behavioral disturbance, psychotic disturbance, mood disturbance, and anxiety; Z20.822 Contact with and (suspected) exposure to COVID-19; Z75.1 Person awaiting admission to adequate facility elsewhere; Z87.440 Personal history of urinary (tract) infections; Z79.4 Long term (current) use of insulin; Z79.82 Long term (current) use of aspirin; Z79.890 Hormone replacement therapy; Z79.899 Other long term (current) drug therapy
CPT/HCPCS: 0241U; 36415; 70450; 73110; 80048; 80053; 80076; 81001; 81003; 82607; 82746; 82947; 83036; 83690; 83735; 84439; 84443; 84484; 84550; 85025; 85027; 85652; 86140; 87086; 87088; 87147; 93005; 97161; 97166; 99285; J0737; J1650; J2405; J7120; S9485

== ENCOUNTER → 2024-07-10 09:21 | Outpatient (BNV) | payer MEDICARE, MEDICAID, SELFPAY | PROVIDERS: Emergency Provider Emergency Medicine Emergency Medical Services; PCP Dentist General Practice; Visit Provider Internal Medicine Cardiovascular Disease | DX: R42 Dizziness and giddiness (principal) | CPT/HCPCS: 93010 ==

== ENCOUNTER → 2024-07-10 09:25 | Outpatient (BNV) | payer MEDICARE, MEDICAID, SELFPAY | PROVIDERS: Emergency Provider Emergency Medicine Emergency Medical Services; PCP Dentist General Practice; Visit Provider Social Worker | DX: F33.1 Major depressive disorder, recurrent, moderate (principal); F03.90 Unspecified dementia, unspecified severity, without behavioral disturbance, psychotic disturbance, mood disturbance, and anxiety | CPT/HCPCS: 99285 ==

== ENCOUNTER → 2024-07-21 11:18 | Outpatient (BNV) | payer MEDICARE, MEDICAID, SELFPAY | PROVIDERS: Emergency Provider Emergency Medicine Emergency Medical Services; PCP Nurse Practitioner Family; Visit Provider Radiology Diagnostic Radiology | DX: M25.532 Pain in left wrist (principal); M18.12 Unilateral primary osteoarthritis of first carpometacarpal joint, left hand | CPT/HCPCS: 73110 ==

== ENCOUNTER → 2024-07-25 20:54 | Outpatient (BNV) | payer MEDICARE, MEDICAID, SELFPAY | PROVIDERS: Admitting Provider Internal Medicine; Emergency Provider Emergency Medicine Emergency Medical Services; PCP Nurse Practitioner Family; Visit Provider Physician Assistant | DX: D75.839 Thrombocytosis, unspecified (principal); N17.9 Acute kidney failure, unspecified | CPT/HCPCS: 99222; 99231 ==

== ENCOUNTER → 2024-07-25 20:54 | Outpatient (BNV) | payer MEDICARE, MEDICAID, SELFPAY | PROVIDERS: Admitting Provider Internal Medicine; Emergency Provider Emergency Medicine Emergency Medical Services; PCP Nurse Practitioner Family; Visit Provider Internal Medicine | DX: D75.839 Thrombocytosis, unspecified (principal) | CPT/HCPCS: 99222 ==

== ENCOUNTER → 2024-09-15 10:46 | Outpatient (BNV) | payer MEDICARE, MEDICAID, SELFPAY | PROVIDERS: PCP Family Medicine; Visit Provider Internal Medicine | DX: D75.839 Thrombocytosis, unspecified (principal) | CPT/HCPCS: 99214; G2211 ==

== ENCOUNTER 2024-10-18 20:08 | Emergency (ER) | payer MEDICARE, MEDICAID, SELFPAY ==
--- NOTE | ~2024-10-18 | CT_ITS ---
CLINICAL HISTORY: fall, + hx coagulopathy CT head without contrast Comparison: CT/SR - CT HEAD/BRAIN WO IV CON - 07/11/24 20:09 EST Findings: No intra-axial mass, midline shift, hydrocephalus, or acute hemorrhage. Prominence of the ventricular system and subarachnoid spaces consistent with atrophy. Prominent bilateral supratentorial confluent periventricular and subcortical white matter hypodensities similar to previous examination. This is nonspecific and may represent chronic white matter ischemic changes. Stable bilateral thalamic hypodensities likely nonacute lacunar infarcts. Atherosclerotic vascular disease Stable 2.4 cm right posterior lateral temporal extra-axial calcified mass consistent with meningioma with focal mass effect upon the adjacent brain parenchyma. Mild mucosal thickening in left maxillary sinus. Minimal mucosal thickening in right maxillary sinus. Otherwise sinuses and mastoid air cells are clear. The orbits are unremarkable. There is no acute skull fracture. IMPRESSION: 1. No acute intracranial findings. 2. Stable right posterior temporal meningioma. 3. Stable atrophy and prominent white matter hypodensities likely chronic ischemic changes and nonacute lacunar infarcts. This document has been electronically signed by: Venus Chan MD on 10/18/2024 21:52:42
--- NOTE | ~2024-10-18 | CT_ITS ---
CLINICAL HISTORY: fall, mild discomfort posterior neck CT cervical spine without contrast Comparison: CT/REG/AR/SR - CT CERVICAL SPINE WO IV CON - 10/17/23 01:56 EDT Findings: Minimal grade 1 anterolisthesis at C3-4 and C4-5. Otherwise alignment is maintained. Vertebral body height overall maintained. No acute fracture in the cervical spine. Craniocervical junction is intact. Degenerative disc disease and spondylotic changes most significantly involving C5-6 and C6-7 levels with canal and foraminal stenosis at these levels, stable. Multilevel facet arthropathy. Prevertebral soft tissues within normal limits Atherosclerotic vascular disease stable very small left thyroid hypodense nodule. Lung apices are clear. IMPRESSION: 1. No acute findings. 2. Stable nonacute findings as described. This document has been electronically signed by: Venus Chan MD on 10/18/2024 21:36:50
[2024-10-18 20:16] VITALS: BP 144/76; PULSE 96; O2SAT 96; BMI 26.4
--- OUTSIDE RECORDS SUMMARY | 2024-10-18 20:43 | XMS_ITS | Encounter Summary ---
Author Organization [facility] Address [address] [place] [address] Care Team Providers Care Courtesy Clerk Name Role Phone Rommel Mendez MD Primary Care Provider [phone] Encounter Details Date Type Department Care Team (Latest Contact Info) Description 09/01/2024 Lab Requisition [facility] - Main Lab [address] [facility] [place] [address] Rommel Mendez MD [address] [place] [address], [phone] Type 2 diabetes mellitus without complications (CMS/HCC); Hypothyroidism, unspecified; Essential (primary) hypertension; Essential (hemorrhagic) thrombocythemia (CMS/HCC) Social History Tobacco Use Types Packs/Day Years Used Date Smoking Tobacco: Never Assessed Comments Unknown Sex and Gender Information Value Date Recorded Sex Assigned at Not on file Legal Sex Female 1:35 PM EDT Gender Identity Not on file Sexual Orientation Not on file documented as of this encounter Plan of Treatment Not on file documented as of this encounter Procedures Procedure Name Priority Date/Time Associated Diagnosis Comments COMPLETE BLOOD COUNT Routine 09/01/2024 6:09 AM EST Type 2 diabetes mellitus without complications (CMS/HCC) Hypothyroidism, unspecified Essential (primary) hypertension Essential (hemorrhagic) thrombocythemia (CMS/HCC) HEMOGLOBIN A1C Routine 09/01/2024 6:09 AM EST Type 2 diabetes mellitus without complications (CMS/HCC) Hypothyroidism, unspecified Essential (primary) hypertension Essential (hemorrhagic) thrombocythemia (CMS/HCC) COMPREHENSIVE METABOLIC PANEL Routine 09/01/2024 6:09 AM EST Type 2 diabetes mellitus without complications (CMS/HCC) Hypothyroidism, unspecified Essential (primary) hypertension Essential (hemorrhagic) thrombocythemia (CMS/HCC) documented in this encounter Results * (ABNORMAL) Hemoglobin A1c (09/01/2024 6:09 AM EST) Hemoglobin A1C 7.4(H) <6.5 % LAB CHEMISTRY METHOD 09/01/2024 2:08 PM EST [facility] Mean Bld Glu Estim. 166 mg/dL LAB CHEMISTRY METHOD 09/01/2024 2:08 PM [facility] Blood Venous blood specimen / Unknown Venipuncture / Unknown 09/01/2024 6:09 AM EST 09/01/2024 10:52 AM EST us Rommel Mendez MD LAB BLOOD ORDERABLES Final Resul t [facility] [address] [place] [address], * (ABNORMAL) Comprehensive metabolic panel (09/01/2024 6:09 AM EST) Pathologist [facility] Sodium 138 133 - 145 mmol/L LAB CHEMISTRY METHOD 09/01/2024 12:16 PM [facility] Potassium 4.7 3.5 - 5.5 mmol/L LAB CHEMISTRY METHOD 09/01/2024 12:16 PM [facility] Chloride 106 96 - 110 mmol/L LAB CHEMISTRY METHOD 09/01/2024 12:16 PM [facility] CO2 24 21 - 32 mmol/L LAB CHEMISTRY METHOD 09/01/2024 12:16 PM [facility] Anion Gap 8 3 - 11 LAB CHEMISTRY METHOD 09/01/2024 12:16 PM [facility] Glucose 170(H) 70 - 100 mg/dL LAB CHEMISTRY METHOD 09/01/2024 12:16 PM [facility] BUN 20 5 - 25 mg/dL LAB CHEMISTRY METHOD 09/01/2024 12:16 PM [facility] Creatinine 0.87 0.50 - 1.10 mg/dL LAB CHEMISTRY METHOD 09/01/2024 12:16 PM [facility] eGFR 67 >=60 mL/min/1. 73m2 LAB CHEMISTRY METHOD 09/01/2024 12:16 PM [facility] Comment:Calculation based on the??Chronic Kidney Disease Epidemiology Collaboration (CKD-EPI) equation refit??without adjustment for race. BUN/Creatinine Ratio 23.0 LAB CHEMISTRY METHOD 09/01/2024 12:16 PM [facility] Calcium 9.3 8.5 - 10.5 mg/dL LAB CHEMISTRY METHOD 09/01/2024 12:16 PM [facility] AST (SGOT) 18 10 - 42 unit/L LAB CHEMISTRY METHOD 09/01/2024 12:16 PM [facility] ALT (SGPT) 25 10 - 60 unit/L LAB CHEMISTRY METHOD 09/01/2024 12:16 PM [facility] Alkaline Phosphatase 92 42 - 121 unit/L LAB CHEMISTRY METHOD 09/01/2024 12:16 PM [facility] Total Protein 7.0 6.0 - 8.0 g/dL LAB CHEMISTRY METHOD 09/01/2024 12:16 PM [facility] Albumin 3.1(L) 3.2 - 5.0 g/dL LAB CHEMISTRY METHOD 09/01/2024 12:16 PM [facility] Total Bilirubin 0.3 0.0 - 1.4 mg/dL LAB CHEMISTRY METHOD 09/01/2024 12:16 PM [facility] Blood Venous blood specimen / Unknown Venipuncture / Unknown 09/01/2024 6:09 AM EST 09/01/2024 10:52 AM EST us Rommel Mendez MD LAB BLOOD ORDERABLES Final Resul t [facility] [address] [place] [address], * (ABNORMAL) Complete blood count (09/01/2024 6:09 AM EST) [facility] Signature WBC 11.0(H) 4.8 - 10.8 K/mcL LAB HEMETOLOGY METHOD 09/01/2024 11:37 AM EST [facility] RBC 5.00(H) 3.80 - 4.80 M/mcL LAB HEMETOLOGY METHOD 09/01/2024 11:37 AM [facility] Hemoglobin 11.5 11.5 - 16.0 g/dL LAB HEMETOLOGY METHOD 09/01/2024 11:37 AM [facility] Hematocrit 38.1 35.0 - 47.0 % LAB HEMETOLOGY METHOD 09/01/2024 11:37 AM [facility] MCV 76.8(L) 79.0 - 98.0 FL LAB HEMETOLOGY METHOD 09/01/2024 11:37 AM [facility] MCH 23.2(L) 27.0 - 32.0 pcg LAB HEMETOLOGY METHOD 09/01/2024 11:37 AM [facility] MCHC 30.2(L) 32.0 - 37.0 g/dL LAB HEMETOLOGY METHOD 09/01/2024 11:37 AM [facility] RDW 19.8(H) 11.0 - 15.0 % LAB HEMETOLOGY METHOD 09/01/2024 11:37 AM [facility] Platelets 756(H) 130 - 400 K/mcL LAB HEMETOLOGY METHOD 09/01/2024 11:37 AM [facility] MPV 9.9 7.0 - 11.0 FL LAB HEMETOLOGY METHOD 09/01/2024 11:37 AM [facility] NRBC 0.0 <1.0 % LAB HEMETOLOGY METHOD 09/01/2024 11:37 AM EST [facility] NRBC Absolute 0.00 <0.10 K/mcL LAB HEMETOLOGY METHOD 09/01/2024 11:37 AM EST [facility] Blood Venous blood specimen / Unknown Venipuncture / Unknown 09/01/2024 6:09 AM EST 09/01/2024 10:52 AM EST us Rommel Mendez MD LAB BLOOD ORDERABLES Final Resul t [facility] [address] [place] [address], documented in this encounter Visit Diagnoses Diagnosis Type 2 diabetes mellitus without complications Hypothyroidism, unspecified Essential (primary) hypertension Unspecified essential hypertension Essential (hemorrhagic) thrombocythemia documented in this encounter Care Teams Courtesy Clerk Relationship Specialty Start Date End Date Rommel Mendez MD [address] [place] [phone] PCP - General Family Medicine 09/01/24 documented as of this encounter
--- OUTSIDE RECORDS SUMMARY | 2024-10-18 20:43 | XMS_ITS | Clinical Summary ---
Author Organization [address] Address [address] [place] [phone] Phone Care Team Providers Care Maintenance Supervisor Electrical Name Role Phone Rommel Mendez MD Primary Care Provider [phone] Encounters Date Type Department Care Team Description 10/07/2024 Lab Requisition [facility] [address] [place] [phone] Rommel Mendez MD Type 2 diabetes mellitus without complications (CMS/HCC); Repeated falls; Altered mental status, unspecified 09/30/2024 Lab Requisition [facility] [address] [place] [phone] Rommel Mendez MD Type 2 diabetes mellitus without complications (CMS/HCC); Hypothyroidism, unspecified; Hyperlipidemia, unspecified; Essential (primary) hypertension; Hallucinations, unspecified; Essential (hemorrhagic) thrombocythemia (CMS/HCC) 09/23/2024 Lab Requisition [facility] [address] [place] [phone] Rommel Mendez MD Hypothyroidism, unspecified 09/08/2024 Lab Requisition [facility] [address] [place] [phone] Rommel Mendez MD Type 2 diabetes mellitus without complications (CMS/HCC) 09/01/2024 Lab Requisition [facility] [address] [place] [phone] Rommel Mendez MD Type 2 diabetes mellitus without complications (CMS/HCC); Hypothyroidism, unspecified; Essential (primary) hypertension; Essential (hemorrhagic) thrombocythemia (CMS/HCC) from Last 3 Months Social History Tobacco Use Types Packs/Day Years Used Date Smoking Tobacco: Never Assessed Comments Unknown Sex and Gender Information Value Date Recorded Sex Assigned at Not on file Legal Sex Female 1:35 PM EDT Gender Identity Not on file Sexual Orientation Not on file Plan of Treatment Health Maintenance Due Date Last Done Comments COVID-19 Vaccine (#1) 1947 Diabetes: Annual Foot Exam 1952 Diabetes: Annual Retina Eye Exam 1952 Zoster Vaccines (1 of 2) 1961 RSV Immunization Patients 60 + Years Old (1 - 1-dose 75+ series) 2017 Cholesterol Screening (Lipid Panel) 02/19/2024 Depression Screening 02/19/2024 Falls Risk Assessment 02/19/2024 Medicare Annual Wellness Visit 02/19/2024 Osteoporosis Screening (Bone Density Screening) 02/19/2024 Social Influencers of Health Screening 02/19/2024 Influenza Vaccine (#1) 2024 8, 06/09/2016, 04/19/2015 Diabetes: Annual Urine Albumin-Creatinine Ratio (uACR) 09/01/2024 Diabetes: Blood Sugar Contro l Test (HGBA1C) 03/01/2025 09/01/2024 Diabetes: Annual GFR (Glomerular Filtration Rate) 09/30/2025 09/30/2024, 09/01/2024 Hypertension/CHF/CAD Annual BMP Blood Test 09/30/2025 09/30/2024, 09/01/2024 DTaP,Tdap,and Td Vaccines (4 - Td or Tdap) 08/30/2033 08/30/2023, 07/25/2023, 12/21/2017 Pneumococcal Vaccine: 50+ Years Completed 06/09/2016, 04/03/2015 HIB Vaccines Aged Out No longer eligi ble based on patient's age to complete this topic HPV Vaccines Aged Out No longer eligi ble based on patient's age to complete this topic Hepatitis A Vaccines Aged Out No long er eligible based on patient's age to complete this topic Hepatitis B Vaccines Aged Out No long er eligible based on patient's age to complete this topic IPV Vaccines Aged Out No longer eligi ble based on patient's age to complete this topic MMR Vaccines Aged Out No longer eligi ble based on patient's age to complete this topic Meningococcal ACWY Vaccine Aged Out N o longer eligible based on patient's age to complete this topic Meningococcal B Vacine Aged Out No lo nger eligible based on patient's age to complete this topic RSV Immunization Patients Under 20 months Aged Out No longer eligible b ased on patient's age to complete this topic Varicella Vaccines Aged Out No longer eligible based on patient's age to complete this topic Procedures Procedure Name Priority Date/Time Associated Diagnosis Comments URINALYSIS WITH REFLEX MICROSCOPIC AND CULTURE Routine 10/07/2024 6:00 AM EDT Type 2 diabetes mellitus without complications Repeated falls Altered mental status, unspecified DIXON URINE CULTURE TUBE Routine 10/07/2024 6:00 AM EDT Type 2 diabetes mellitus without complications Repeated falls Altered mental status, unspecified URINALYSIS WITH REFLEX MICROSCOPIC AND CULTURE Routine 10/07/2024 6:00 AM EDT Type 2 diabetes mellitus without complications Repeated falls Altered mental status, unspecified CULTURE URINE Routine 10/07/2024 6:00 AM EDT Type 2 diabetes mellitus without complications Repeated falls Altered mental status, unspecified BASIC METABOLIC PANEL Routine 09/30/2024 8:19 AM EDT Type 2 diabetes mellitus without complications (CMS/HCC) Hypothyroidism, unspecified Hyperlipidemia, unspecified Essential (primary) hypertension Hallucinations, unspecified Essential (hemorrhagic) thrombocythemia (CMS/HCC) COMPLETE BLOOD COUNT Routine 09/30/2024 8:19 AM EDT Type 2 diabetes mellitus without complications (CMS/HCC) Hypothyroidism, unspecified Hyperlipidemia, unspecified Essential (primary) hypertension Hallucinations, unspecified Essential (hemorrhagic) thrombocythemia (CMS/HCC) THYROID STIMULATING HORMONE WITH REFLEX TO FREE T4 AND FREE T3 Routine 09/26/2024 7:30 AM EDT Hypothyroidism, unspecified COMPLETE BLOOD COUNT Routine 09/08/2024 7:11 AM EST Type 2 diabetes mellitus without complications (CMS/HCC) HEMOGLOBIN A1C Routine 09/01/2024 6:09 AM EST Type 2 diabetes mellitus without complications (CMS/HCC) Hypothyroidism, unspecified Essential (primary) hypertension Essential (hemorrhagic) thrombocythemia (CMS/HCC) COMPREHENSIVE METABOLIC PANEL Routine 09/01/2024 6:09 AM EST Type 2 diabetes mellitus without complications (CMS/HCC) Hypothyroidism, unspecified Essential (primary) hypertension Essential (hemorrhagic) thrombocythemia (CMS/HCC) COMPLETE BLOOD COUNT Routine 09/01/2024 6:09 AM EST Type 2 diabetes mellitus without complications (CMS/HCC) Hypothyroidism, unspecified Essential (primary) hypertension Essential (hemorrhagic) thrombocythemia (CMS/HCC) from Last 3 Months Results * (ABNORMAL) Urinalysis with reflex microscopic and culture (10/07/2024 6:00 AM EDT) Specific [place] Urine 1.011 1.003 - 1.030 LAB URINALYSIS - AUTOMATED METHOD 10/07/2024 12:42 PM [facility] pH, Urine 7.0 5.0 - 8.0 pH LAB URINALYSIS - AUTOMATED METHOD 10/07/2024 12:42 PM [facility] Leukocytes, Urine Trace(A) Negative LAB URINALYSIS - AUTOMATED METHOD 10/07/2024 12:42 PM [facility] Nitrite, Urine Negative Negative LAB URINALYSIS - AUTOMATED METHOD 10/07/2024 12:42 PM [facility] Protein, Urine 30(A) <=Trace mg/dL LAB URINALYSIS - AUTOMATED METHOD 10/07/2024 12:42 PM [facility] Glucose, Urine Negative Negative mg/dL LAB URINALYSIS - AUTOMATED METHOD 10/07/2024 12:42 PM [facility] Ketones, Urine Negative Negative mg/dL LAB URINALYSIS - AUTOMATED METHOD 10/07/2024 12:42 PM [facility] Urobilinogen, Urine 0.2 0.2 - 1.0 mg/dL LAB URINALYSIS - AUTOMATED METHOD 10/07/2024 12:42 PM [facility] Bilirubin, Urine Negative Negative LAB URINALYSIS - AUTOMATED METHOD 10/07/2024 12:42 PM [facility] Blood, Urine Negative Negative LAB URINALYSIS - AUTOMATED METHOD 10/07/2024 12:42 PM [facility] RBC, Urine 0 0 - 4 /HPF LAB URINALYSIS - AUTOMATED METHOD 10/07/2024 12:42 PM [facility] WBC, Urine 6.8(H) 0 - 4 /HPF LAB URINALYSIS - AUTOMATED METHOD 10/07/2024 12:42 PM [facility] Squamous Epithelial, Urine >100(H) 0 - 60 /LPF LAB URINALYSIS - AUTOMATED METHOD 10/07/2024 12:42 PM [facility] Bacteria, Urine Negative Negative /HPF LAB URINALYSIS - AUTOMATED METHOD 10/07/2024 12:42 PM [facility] Hyaline Casts, Urine 2.0 0 - 3 /LPF LAB URINALYSIS - AUTOMATED METHOD 10/07/2024 12:42 PM [facility] Urine Urine specimen obtained by clean catch procedure / Unknown Non-blood Collection / Unknown 10/07/2024 6:00 AM EDT 10/07/2024 11:14 AM EDT us Rommel Mendez MD LAB URINE ORDERABLES Final Resul t [facility] [address] [place] [address], * [place] urine culture tube (10/07/2024 6:00 AM EDT) Extra Tube Hold for add-ons. 10/07/2024 1:02 PM EDT [facility] Comment:Auto resulted. Urine Urine specimen obtained by clean catch procedure / Unknown Non-blood Collection / Unknown 10/07/2024 6:00 AM EDT 10/07/2024 11:14 AM EDT Rommel Mendez MD LAB URINE ORDERABLES Final Resul t Performing Organization Address City/[facility]/ZIP Co de Phone Number [facility] [address] [place] [address], [place] [phone] * Culture urine (10/07/2024 6:00 AM EDT) Culture, Urine 50,000-99,000 CFU/mL Mixed bacterial morphotypes present suggestive of possible contamination during collection. Suggest appropriate recollection if clinically indicated. 10/09/2024 10:55 AM EDT [facility] Urine Urine specimen obtained by clean catch procedure / Unknown Non-blood Collection / Unknown 10/07/2024 6:00 AM EDT 10/07/2024 12:42 PM EDT Rommel Mendez MD LAB MICROBIOLOGY - GENERAL ORDER GERALDINE Final Result Performing Organization Address [facility] Co de Phone Number [facility] [address] [place] [address], [place] [phone] * (ABNORMAL) Complete blood count (09/30/2024 8:19 AM EDT) Only the most recent of3 resultswithin the time period is included. WBC 7.3 4.8 - 10.8 K/[facility] LAB HEMETOLOGY METHOD 09/30/2024 11:11 AM EDT [facility] RBC 5.30(H) 3.80 - 4.80 M/[facility] LAB HEMETOLOGY METHOD 09/30/2024 11:11 AM EDT [facility] Hemoglobin 12.4 11.5 - 16.0 g/dL LAB HEMETOLOGY METHOD 09/30/2024 11:11 AM EDT [facility] Hematocrit 40.9 35.0 - 47.0 % LAB HEMETOLOGY METHOD 09/30/2024 11:11 AM EDT [facility] MCV 77.2(L) 79.0 - 98.0 FL LAB HEMETOLOGY METHOD 09/30/2024 11:11 AM EDT [facility] MCH 23.4(L) 27.0 - 32.0 pcg LAB HEMETOLOGY METHOD 09/30/2024 11:11 AM EDT [facility] MCHC 30.3(L) 32.0 - 37.0 g/dL LAB HEMETOLOGY METHOD 09/30/2024 11:11 AM [facility] RDW 19.1(H) 11.0 - 15.0 % LAB HEMETOLOGY METHOD 09/30/2024 11:11 AM EDT [facility] Platelets 633(H) 130 - 400 K/mcL LAB HEMETOLOGY METHOD 09/30/2024 11:11 AM EDT [facility] MPV 9.6 7.0 - 11.0 FL LAB HEMETOLOGY METHOD 09/30/2024 11:11 AM [facility] NRBC 0.0 <1.0 % LAB HEMETOLOGY METHOD 09/30/2024 11:11 AM EDT [facility] NRBC Absolute 0.00 <0.10 K/mcL LAB HEMETOLOGY METHOD 09/30/2024 11:11 AM [facility] Blood Venous blood specimen / Unknown Venipuncture / Unknown 09/30/2024 8:19 AM EDT 09/30/2024 10:41 AM EDT us Rommel Mendez MD LAB BLOOD ORDERABLES Final Resul t [facility] [address] [place] [address], * (ABNORMAL) Basic metabolic panel (09/30/2024 8:19 AM EDT) Sodium 135 133 - 145 mmol/L LAB CHEMISTRY METHOD 09/30/2024 11:35 AM [facility] Potassium 3.5 3.5 - 5.5 mmol/L LAB CHEMISTRY METHOD 09/30/2024 11:35 AM [facility] Chloride 98 96 - 110 mmol/L LAB CHEMISTRY METHOD 09/30/2024 11:35 AM [facility] CO2 27 21 - 32 mmol/L LAB CHEMISTRY METHOD 09/30/2024 11:35 AM [facility] Anion Gap 10 3 - 11 LAB CHEMISTRY METHOD 09/30/2024 11:35 AM [facility] Glucose 127(H) 70 - 100 mg/dL LAB CHEMISTRY METHOD 09/30/2024 11:35 AM [facility] BUN 12 5 - 25 mg/dL LAB CHEMISTRY METHOD 09/30/2024 11:35 AM [facility] Creatinine 0.90 0.50 - 1.10 mg/dL LAB CHEMISTRY METHOD 09/30/2024 11:35 AM [facility] eGFR 64 >=60 mL/min/1. 73m2 LAB CHEMISTRY METHOD 09/30/2024 11:35 AM [facility] Comment:Calculation based on the??Chronic Kidney Disease Epidemiology Collaboration (CKD-EPI) equation refit??without adjustment for race. BUN/Creatinine Ratio 13.3 LAB CHEMISTRY METHOD 09/30/2024 11:35 AM [facility] Calcium 9.0 8.5 - 10.5 mg/dL LAB CHEMISTRY METHOD 09/30/2024 11:35 AM [facility] Blood Venous blood specimen / Unknown Venipuncture / Unknown 09/30/2024 8:19 AM EDT 09/30/2024 10:41 AM EDT us Rommel Mendez MD LAB BLOOD ORDERABLES Final Resul t [facility] [address] [place] [address], [place] [phone] * Thyroid stimulating hormone with reflex to free t4 and free t3 (09/26/2024 7:30 AM EDT) [facility] TSH 2.60 0.40 - 4.00 mcIU/mL LAB CHEMISTRY METHOD 09/26/2024 11:38 AM EDT [facility] Blood Venous blood specimen / Unknown Venipuncture / Unknown 09/26/2024 7:30 AM EDT 09/26/2024 10:50 AM EDT us Rommel Mendez MD LAB BLOOD ORDERABLES Final Resul t Performing Organization Address [facility]/ZIP Co de Phone Number [facility] [address] [place] [address], [place] [phone] * (ABNORMAL) Hemoglobin A1c (09/01/2024 6:09 AM EST) [facility] Hemoglobin A1C 7.4(H) <6.5 % LAB CHEMISTRY METHOD 09/01/2024 2:08 PM EST [facility] Mean Bld Glu Estim. 166 mg/dL LAB CHEMISTRY METHOD 09/01/2024 2:08 PM EST [facility] Blood Venous blood specimen / Unknown Venipuncture / Unknown 09/01/2024 6:09 AM EST 09/01/2024 10:52 AM EST us Rommel Mendez MD LAB BLOOD ORDERABLES Final Resul t Performing Organization Address City/[facility]/ZIP Co de Phone Number [facility] [address] [place] [address], [place] [phone] * (ABNORMAL) Comprehensive metabolic panel (09/01/2024 6:09 AM EST) Sodium 138 133 - 145 mmol/L LAB CHEMISTRY METHOD 09/01/2024 12:16 PM [facility] Potassium 4.7 3.5 - 5.5 mmol/L LAB CHEMISTRY METHOD 09/01/2024 12:16 PM [facility] Chloride 106 96 - 110 mmol/L LAB CHEMISTRY METHOD 09/01/2024 12:16 PM [facility] CO2 24 21 - 32 mmol/L LAB CHEMISTRY METHOD 09/01/2024 12:16 PM [facility] Anion Gap 8 3 - 11 LAB CHEMISTRY METHOD 09/01/2024 12:16 PM [facility] Glucose 170(H) 70 - 100 mg/dL LAB CHEMISTRY METHOD 09/01/2024 12:16 PM [facility] BUN 20 5 - 25 mg/dL LAB CHEMISTRY METHOD 09/01/2024 12:16 PM [facility] Creatinine 0.87 0.50 - 1.10 mg/dL LAB CHEMISTRY METHOD 09/01/2024 12:16 PM [facility] eGFR 67 >=60 mL/min/1. 73m2 LAB CHEMISTRY METHOD 09/01/2024 12:16 PM [facility] Comment:Calculation based on the??Chronic Kidney Disease Epidemiology Collaboration (CKD-EPI) equation refit??without adjustment for race. BUN/Creatinine Ratio 23.0 LAB CHEMISTRY METHOD 09/01/2024 12:16 PM [facility] Calcium 9.3 8.5 - 10.5 mg/dL LAB CHEMISTRY METHOD 09/01/2024 12:16 PM [facility] AST (SGOT) 18 10 - 42 unit/L LAB CHEMISTRY METHOD 09/01/2024 12:16 PM [facility] ALT (SGPT) 25 10 - 60 unit/L LAB CHEMISTRY METHOD 09/01/2024 12:16 PM EST [facility] Alkaline Phosphatase 92 42 - 121 unit/L LAB CHEMISTRY METHOD 09/01/2024 12:16 PM EST [facility] Total Protein 7.0 6.0 - 8.0 g/dL LAB CHEMISTRY METHOD 09/01/2024 12:16 PM EST [facility] Albumin 3.1(L) 3.2 - 5.0 g/dL LAB CHEMISTRY METHOD 09/01/2024 12:16 PM [facility] Total Bilirubin 0.3 0.0 - 1.4 mg/dL LAB CHEMISTRY METHOD 09/01/2024 12:16 PM [facility] Blood Venous blood specimen / Unknown Venipuncture / Unknown 09/01/2024 6:09 AM EST 09/01/2024 10:52 AM EST us Rommel Mendez MD LAB BLOOD ORDERABLES Final Resul t [facility] [address] [place] [address], from Last 3 Months Insurance MEDICAID - [place] MEDICARE Care Teams Maintenance Supervisor Electrical Relationship Specialty Start Date End Date Rommel Mendez MD [address] [place] [phone] PCP - General Family Medicine 09/01/24
--- OUTSIDE RECORDS SUMMARY | 2024-10-18 20:43 | XMS_ITS | Encounter Summary ---
Author Organization [employer] Address [address] [place] [address] Care Team Providers Care Steamblaster Name Role Phone Rommel Mendez MD Primary Care Provider [phone] Encounter Details Date Type Department Care Team (Late st Contact Info) Description 09/08/2024 Lab Requisition [facility] [address] [place] [address] Rommel Mendez MD 38 [facility] [address] [place], [phone] Type 2 diabetes mellitus without complications (CMS/HCC) Social History Tobacco Use Types Packs/Day [...] Associated Diagnosis Comments COMPLETE BLOOD COUNT Routine 09/08/2024 7:11 AM EST Type 2 diabetes mellitus without complications (CMS/HCC) documented in this encounter Results * (ABNORMAL) Complete blood count (09/08/2024 7:11 AM EST) WBC 10.5 4.8 - 10.8 K/mcL LAB HEMETOLOGY METHOD 09/08/2024 11:09 AM EST [facility] RBC 5.00(H) 3.80 - 4.80 M/mcL LAB HEMETOLOGY METHOD 09/08/2024 11:09 AM EST [facility] Hemoglobin 11.7 11.5 - 16.0 g/dL LAB HEMETOLOGY METHOD 09/08/2024 11:09 AM [facility] Hematocrit 40.0 35.0 - 47.0 % LAB HEMETOLOGY METHOD 09/08/2024 11:09 AM [facility] MCV 79.4 79.0 - 98.0 FL LAB HEMETOLOGY METHOD 09/08/2024 11:09 AM [facility] MCH 23.2(L) 27.0 - 32.0 pcg LAB HEMETOLOGY METHOD 09/08/2024 11:09 AM [facility] MCHC 29.3(L) 32.0 - 37.0 g/dL LAB HEMETOLOGY METHOD 09/08/2024 11:09 AM [facility] RDW 20.3(H) 11.0 - 15.0 % LAB HEMETOLOGY METHOD 09/08/2024 11:09 AM [facility] Platelets 651(H) 130 - 400 K/mcL LAB HEMETOLOGY METHOD 09/08/2024 11:09 AM [facility] MPV 9.9 7.0 - 11.0 FL LAB HEMETOLOGY METHOD 09/08/2024 11:09 AM [facility] NRBC 0.0 <1.0 % LAB HEMETOLOGY METHOD 09/08/2024 11:09 AM [facility] NRBC Absolute 0.00 <0.10 K/mcL LAB HEMETOLOGY METHOD 09/08/2024 11:09 AM [facility] Blood Venous blood specimen / Unknown Venipuncture / Unknown 09/08/2024 7:11 AM EST 09/08/2024 10:29 AM EST us Rommel Mendez MD LAB BLOOD ORDERABLES Final Resul t [facility] [address] [place], [place] [address] [phone] documented in this encounter Visit Diagnoses Diagnosis Type 2 diabetes mellitus without complications documented in this encounter Care Teams Steamblaster Relationship Specialty Start Date End Date Rommel Mendez MD [address] [place] [address] [place] [phone] PCP - General Family Medicine 09/01/24 documented as of this encounter
--- OUTSIDE RECORDS SUMMARY | 2024-10-18 20:43 | XMS_ITS ---
Author Organization [facility] Care Team Providers Care Rn Case Manager Name Role Phone Adrienne Larios Unavailable Unavailable Allergies and adverse reactions Code CodeSystem Substance Reaction Severity StartDate Concern Status 7984 RXNORM Penicillin Unknown 08/11/2023 active 7052 RXNORM Morphine Unknown 08/11/2023 active Care Team Name Role Address Phone Organization Dates Adrienne Larios PCP [address] [place] [address], [phone], [facility] (Office): : [facility] 08/11/2023 - 08/17/2023 Mental Status Section Date Assessment Total Score Description 08/17/2023 BIMS 14 cognitively int act CAM 0 No delirium ind icated Problems Problem # Description Date of onset Resolved Date Code CodeSystem Concern Status 1 DYSPHAGIA, ORAL PHASE 08/12/[address] active 2 DYSPHAGIA, UNSPECIFIED 08/12/[address] active 3 ENCOUNTER FOR OTHER ORTHOPEDIC AFTERCARE 08/12/[address] active 4 MUSCLE WEAKNESS (GENERALIZED) 08/12/[address] active 5 UNSPECIFIED LACK OF COORDINATION 08/12/[address] active 6 ACUTE KIDNEY FAILURE, UNSPECIFIED 08/11/[address] active 7 CONTUSION OF OTHER PART OF HEAD, INITIAL ENCOUNTER 08/11/[address] active 8 CONTUSION OF SCALP, INITIAL ENCOUNTER 08/11/[address] active 9 DISORIENTATION, UNSPECIFIED 08/11/[address] active 10 ESSENTIAL (PRIMARY) HYPERTENSION 08/11/[address] active 11 HYPOGLYCEMIA, UNSPECIFIED 08/11/[address] active 12 OTHER SPECIFIED ANXIETY DISORDERS 08/11/[address] active 13 TYPE 2 DIABETES MELLITUS WITHOUT COMPLICATIONS 08/11/[address] active 14 FRACTURE OF UNSPECIFIED PART OF NECK OF LEFT FEMUR, SUBSEQUENT ENCOUNTER FOR CLOSED FRACTURE WITH ROUTINE HEALING 07/27/[address] active 15 HISTORY OF FALLING 07/27/[address] active 16 OTHER ABNORMALITIES OF GAIT AND MOBILITY 07/27/[address] active Reason for Referral No Reasons for Referral Entered Social History Social History Observation Description Start Date End Date Code Code System Current Smoking Status Tobacco smoking consumption unknown 099064242 SNOMED CT Sex Assigned At Female 1940 14698-5 [facility] Vital Signs Code Code System Vitals Name Values and Units Timing Information 69589-8 [facility] Pain Level Value=0.0 08/17/2023 2339-0 [facility] Blood Sugar Spsnw=917.0 Units=mg/dL 08/17/2023 9279-1 [facility] Respiratory Rate Value=18.0 Units=/m in 08/14/2023 8462-4 [facility] Blood Pressure-Diastolic Value=62 Un its=mmHg 08/14/2023 8480-6 [facility] Blood Pressure-Systolic Saldg=168 Un its=mmHg 08/14/2023 8310-5 [facility] Body Temperature Value=98.0 Units=?? F 08/14/2023 8867-4 [facility] Heart rate Value=70.0 Units=/min 57336-7 [facility] O2 % BldC Oximetry Value=93.0 Units= % 08/14/2023 78970-2 [facility] Weight Sbrzu=275.0 Units=Lbs 8302-2 [facility] Height Value=61.0 Units=Inches 08/12/2023
--- OUTSIDE RECORDS SUMMARY | 2024-10-18 20:43 | XMS_ITS | Continuity of Care Document ---
Author Organization [facility], [facility] Address [address] [place] [address] Care Team Providers Care Chimney Sweeper Name Role Phone RITA BRADFORD - 3RD FLOOR OTHER RAMON CHATMAN Primary Care Provider Assessment No assessment recorded. Plan of Treatment Reminders Order Date Submit Date Provider Last Modified By Organization Details Last Modified Time Details Appointments None record ed. Lab None record ed. Referral None record ed. Procedures None record ed. Surgeries None record ed. Imaging None record ed. Medication Orders None record ed. Patient TargetsNo targets recorded. Patient InstructionsNo instructions recorded. Reason for Referral None Reported. Problems Name Problem SNOMED Code Status Onset Date Resolution Date Notes Provider Name and Address Organization Details Recorded Time Acute kidney injury 06314231 Active 2024 Melinda Lindo NP [address] [facility], [address], [place], [address], [facility] 5 14:11:24 Gout 22528281 Active 2024 Melinda Lindo NP [address] [facility], [address], [place], [address], [facility] [employer] [facility] 5 14:11:31 Hypertensive disorder 84812290 Active 2024 Melinda Lindo NP [address], [place], [address], [facility] [employer] [facility] 5 14:11:38 Hyperlipidemia 83455756 Active 2024 Melinda Lindo NP [address], [address], [place], [address], [facility] [employer] [facility] 5 14:11:45 Type 2 diabetes mellitus 24611720 Active 2024 Melinda Lindo NP [address], [address], [place], [address], [facility] 5 14:11:53 Gastroesophage al reflux disease 120215224 Active 2024 Melinda Lindo NP [address], [address], [place], [address], [facility] 5 14:11:59 Hypothyroidism 82063462 Active 2024 Melinda Lindo NP [address], [address], [place], [address], [facility] 5 14:12:13 Thrombocytosis 6964376 Active 2024 Melinda Lindo NP [address], [address], [place], [address], [facility] 5 14:12:43 Urinary tract infectious disease 61481342 Active 2024 Melinda Lindo NP [address] , [address], [place], [address], [facility] 5 14:12:51 Dementia 67782552 Active 2024 Melinda Lindo NP [address] [facility], [address], [place], [address], [facility] 5 14:12:57 Mixed anxiety and depressive disorder 895733064 Active 2024 Melinda Lindo NP [address] [facility], [address], [place], [address], [facility] 5 14:25:13 Problem Notes None recorded. Medical Equipment None Reported. Allergies Allergen ID Allergen Name Allergen Category Reaction Reaction Severity Criticality Documentation Date Start Date Code Code System Note Provider Name and Address Organization Details Recorded Time 81975 bee pollen environme nt,medica tion other Not available unabletoasse 09/01/2024 99396 7 RxNorm Not Available Not Available Not Available 57539 morphine medicatio n other Not available unabletoasse 09/01/2024 7052 RxNorm unkno wn Not Available Not Available Not Available 86381 Product containin g penicilli n (product) medicatio n other Not available via [facility] 09/01/2024 34861 8001 SNOMED unkno wn Not Available Not Available Not Available Medications Not known to be on any medication Vitals Date Recorded Body weight Heart rate Respiratory rate Body temperature Oxygen saturation Oxygen saturation in Arterial blood by Pulse oximetry Systolic blood pressure Diastolic blood pressure Provider Name and Address Organization Details Last Updated DateTime 5 43563.7 5 g 68 /min 18 /min 97.8 [degF] 94 % 94 % 179 mm[Hg] 95 mm[Hg] Melinda Lindo NP [address], [address], [place], [address], [facility] 14:49:04 Social History Question Answer Notes LastModified by Organizat ion Details LastModified Time Tobacco Smoking Status Former Smoker Melinda Lindo NP [address] [facility], [address], [place], [address], [facility] 09/01/2024 14:51:53 Do You Have An Advance Directive? No Full Code [email or web address] Information not available 09/05/2024 What Is Your Level Of Alcohol Consumption? None Information not available 09/01/2024 What Is Your Code Status? Full Code Information not available 09/01/2024 Where Do You Live? Other Unknown Information not available 09/01/2024 What Was The Date Of Your Most Recent Tobacco Screening? 09/01/2024 Na Information not available 09/01/2024 What Is Your Relationship Status? Single Information not available 09/01/2024 How Much Tobacco Do You Smoke? 3+ PPD Quit 30 Years Ago, Unclear How Long Information not available 09/01/2024 Do You Use Any Illicit Or Recreational Drugs? No Information not available 09/01/2024 Do You Or Have You Ever Used Any Other Forms Of Tobacco Or Nicotine? No Information not available 09/01/2024 Sex: Female Functional Status None recorded. Mental Status None recorded. Family History Nothing Reported Notes:Father and mother of old age. father at 102 and mother at 104. reports she had a son and daughter daughter young and doesn't mention how Medical History No medical history recorded. Gynecological HistoryNo gynecological history recorded. Obstetrics History GPAL:G 0 P 0 0 0 0 Immunizations Vaccine Type Date Status Note Provider Abad desouza and Address Organization Details Recorded Time Tdap 07/25/[address] [facility] 09/01/2024 15:21:34 Tdap 08/30/2023 [facility] 15:21:41 Past Encounters Encounter ID Performer Location Encounter Start Date Encounter Closed Date Diagnosis/Indication Diagnosis SNOMED-CT Code Diagnosis ICD10 Code Diagnosis Note [id number] Melinda Lindo NP [address] [address] 09/15/2024 13:01:15 09/16/2024 13:47:04 Metabolic encephalopathy 30638123 G93.41 resolving with underlying dementiaal tered mental status on presentati on to hospitalfe lt due to multiple causes including underlying cognitive impairment and infection with episode of suicidal ideationev aluated at hospital and deemed incompeten t with guardiansh ip pursued now in place Dementia 52611235 F03.90 see above with question underlying dementiaco ntwellbutr in 200 mg bidfluoxet ine 40 mg qdguardian ship now in placeinvok ed Acute kidney injury 1466 9001 N17.8 appears due to dehydratio n which resolved in hospitalim proved with fluidsmoni tor renal function Thrombocytosis 2535168 D 75.838 thrombocyt osis notedhad hematology appt on 09/15 and rec: aspirin 81 mg po qd , will agreef/u with heme out patient in 3 monthsmoni tor cbc Asthenia 48335462 R53.1 PT OT Eval and treatmonit or fall risk and need for increased support in community vs need to transition to LTC Mixed anxi ety and depressive disorder 207603512 F41.8 see abovewellb utrin 200 mg bidfluoxet ine 40 mg qdcontinue dmonitor moodpsych to eval at facilitymo nitor and supportive redirectio n for exit seeking [id number] Melinda Lindo NP [address] [address] 09/23/2024 11:59:10 09/27/2024 09:08:50 Thrombocytosis 7951202 D75.838 thrombocyt osislast hematology appt on 09/15 rec:aspiri n 81 mg po qdf/u with heme out patient in 3 months approx 12/13monito r cbc prn Dementia 82330781 F03.90 underlying dementiaco ntwellbutr in 200 mg bidfluoxet ine 40 mg qdguardian ship now in placeinvok edsupporti ve care for exit seeking behaviors Metabolic encephalopathy 65463712 G93.41 resolving with underlying dementia and confusion at baseline likelyalte red mental status on presentati on to hospitalfe lt due to multiple causes including underlying cognitive impairment and infection with episode of suicidal ideationev aluated at hospital and deemed incompeten t with guardiansh ip pursued now in place Asthenia 60949154 R53.1 PT OT Eval and treatmonit or fall risk and need for increased support in community vs need to transition to LTC Mixed anxi ety and depressive disorder 549144716 F41.8 see abovewellb utrin 200 mg bidfluoxet ine 40 mg qdcontinue dmonitor [facility] and supportive redirectio n for exit seeking [id number] Melinda Lindo NP [address] [address] 09/29/2024 09:09:06 10/03/2024 13:19:49 Dementia 90523276 F03.90 underlying dementiaco ntwellbutr in 200 mg bidfluoxet ine 40 mg qdguardian ship now in placeinvok ed with poor safety awarenesss upportive care for exit seeking behaviors Mixed anxi ety and depressive disorder 792291077 F41.8 see abovewellb utrin 200 mg bidfluoxet ine 40 mg qdcontinue dmonitor moodpsych to followmoni tor and supportive redirectio n for exit seeking Thrombocytosis 1903891 D 75.838 thrombocyt osislast hematology appt on 09/15 rec:contas pirin 81 mg po qdf/u with heme out patient in 3 months approx 12/13monito r cbc prn Asthenia 38548510 R53.1 PT OT Eval and treatsuppo rtive caremonito r fall risk and need for increased support in community vs need to transition to LTC, likely here for LTC Recurrent falls 29191604 2 R29.6 PT OT Eval and treatsuppo rtive carewith 2 falls unwitnesse d without injuriesmo nitor fall risk and need for increased support in community vs need to transition to LTC, likely here for LTC3/13 will start cbc and bmp and ua to ro infection [id number] [facility] [address] [place] [address] 10/03/2024 11:30:17 10/05/2024 10:19:22 Dementia 52311926 F03.90 underlying dementiaco ntwellbutr in 200 mg bidfluoxet ine 40 mg qdguardian ship now in placeinvok ed with poor safety awarenesss upportive care for exit seeking behaviors Thrombocytosis 2049424 D 75.838 thrombocyt osisconton 09/15 pt had hem/onc appt and started on asashe went for fu on 10/03 todaywas planned for f/u with heme out patient in 3 months approx 12/13, unsure if this is still neededwill cont aspirin 81 mg po qdnsg to reach out for plan/progr ess note/ and if they needed labsmonito r cbc prn Asthenia 96976419 R53.1 PT OT Eval and treatsuppo rtive caremonito r fall risk and need for increased support in community vs need to transition to LTC, likely here for LTC [id number] [facility] [address] [place] [address] 10/05/2024 14:31:26 10/07/2024 14:32:29 Dementia 36091261 F03.90 underlying dementiaco ntwellbutr in 200 mg bidfluoxet ine 40 mg qdguardian ship now in placeinvok ed with poor safety awarenesss upportive care for exit seeking behaviorsn ot felt safe to be in community alone Asthenia 96638369 R53.1 seems to be getting weakerPT OT Eval and treatsuppo rtive caremonito r fall risk and need for increased support in community vs need to transition to LTC, likely here for LTC Recurrent falls 10180070 2 R29.6 PT OT Eval and treatsuppo rtive careunwitn essed with with skin tearsmonit or fall risk and need for increased support in community vs need to transition to LTC, likely here for LTCmonitor labs checked on 09/30 will rec to repeat urine(was not done) Tear of skin 056872530 T 14.8XXS pt with 2 left skin tearsns wash, pat dry, let steri strips fall off on there own, change dressing q 3 daysmonito r [id number] Melinda Lindo NP [address] [place] [address] 10/10/2024 10:33:02 10/12/2024 15:10:32 Dementia 68556654 F03.90 underlying dementia now seems to be declining with increased behvaviors contwellbu dwayne 200 mg bidfluoxet ine 40 mg qdguardian ship now in placeinvok ed with poor safety awarenesss upportive care for exit seeking behaviorsn ot felt safe to be in community alone 10/10 psych consultsta rt trazodone 25 mg po q 8hours prn agitation x 14 days Asthenia 37306330 R53.1 seems to be getting weakerPT OT Eval and treatsuppo rtive caremonito r fall risk and need for increased support in community vs need to transition to LTC, likely here for LTC Recurrent falls 99176352 2 R29.6 having increased falls and weakness latelyPT OT Eval and treatsuppo rtive caremonito r fall risk and need for increased support in community vs need to transition to LTC, likely here for LTCmonitor labs recently stable Urinary tr act infectious disease 08600951 N39.0 due to increased behaviors and contaminat ed urine x2 and hx of utis with new behaviors and decline09/18 4 start cipro 500 mg po qd x 3 daysmonito r for sequelae Mixed anxi ety and depressive disorder 486073527 F41.8 see abovewellb utrin 200 mg bidfluoxet ine 40 mg qd10/10 start trazodone 25 mg po q 8 hours prn x 14 dayscontin uedmonitor moodpsych to followmoni tor and supportive redirectio n for exit seeking [id number] Melinda Lindo NP [address] [address] 10/12/2024 08:00:03 10/17/2024 08:16:27 Dementia 81708706 F03.90 underlying dementia now seems to be declining with increased behvaviors contwellbu dwayne 200 mg bidfluoxet ine 40 mg [facility]dguard[facility] with poor safety awarenesss upportive care for exit seeking behaviorsn ot felt safe to be in community alonepsych consulttra zodone 25 mg po q 8hours prn agitation x 14 days per psych Mixed anxi ety and depressive disorder 576536324 F41.8 see abovewellb utrin 200 mg bidfluoxet ine 40 mg qdon 10/10 started on trazodone 25 mg po q 8 hours prn x 14 dayscontin uedmonitor moodpsych to followmoni tor and supportive redirectio n for exit seeking Urinary tr act infectious disease 31027153 N39.0 due to increased behaviors and contaminat ed urine x2 and hx of utis with new behaviors and declineon 10/10 started cipro 500 mg po qd x 3 daysmonito r for sequelae Asthenia 01195794 R53.1 seems to be getting weakerPT OT Eval and treatsuppo rtive caremonito r fall risk and need for increased support in community vs need to transition to LTC, likely here for LTC Recurrent falls 77971422 2 R29.6 having increased falls and weakness lately and fall last evening with co of pain to ribsPT OT Eval and treatsuppo rtive caremonito r fall risk and need for increased support in community vs need to transition to LTC, likely here for LTCmonitor labs recently stable Rib pain 080571617 R07.8 1 co right rib pain and slight abrasion sp fall on xr ay ordered last night, pendingdre ssing on right rib area, change daily for abrasionty lenol 1000 mg po tid sched, tyl prn on hold x 14 dayslidoca ine patch 4% to right rib and back qd add tramadol 50 mg po q 6 hours prn painmonito r [id number] Melinda Lindo NP [facility] [address] [place] [address] 10/13/2024 14:48:17 10/17/2024 11:18:33 Rib pain 878990542 R07.81 co right rib pain and slight abrasion sp fall on xr ay ordered last night with 9th and 10th right rib fracturesd ressing on right rib area, change daily for abrasionty lenol 1000 mg po tid sched, tyl prn on hold x 14 dayslidoca ine patch 4% to right rib and back qdtramadol 50 mg po q 6 hours prn pain10/13 due to pain will add tramadol 50 mg po bid, dosent seem she got any prn doses yetmonitor Recurrent falls 52271139 2 R29.6 having increased falls and weakness lately and fall last evening with co of pain to ribsPT OT Eval and treatsuppo rtive caremonito r fall risk and need for increased support in community vs need to transition to LTC, likely here for LTCmonitor labs recently stable Dementia 93860702 F03.90 underlying dementia now seems to be declining with increased behvaviors contwellbu dwayne 200 mg bidfluoxet ine 40 mg qdguardian ship [facility] with poor safety awarenesss upportive care for exit seeking behaviorsn ot felt safe to be in community alonepsych consulttra zodone 25 mg po q 8hours prn agitation x 14 days per psych Mixed anxi ety and depressive disorder 747714664 F41.8 see abovewellb utrin 200 mg bidfluoxet ine 40 mg qdtrazodon e 25 mg po q 8 hours prn x 14 dayscontin uedmonitor moodpsych to followmoni tor and supportive redirectio n for exit seeking Urinary tr act infectious disease 74687353 N39.0 due to increased behaviors and contaminat ed urine x2 and hx of utis with new behaviors and declinecon t cipro 500 mg po qd x 3 daysmonito r for sequelae Asthenia 07825603 R53.1 seems to be getting weakerPT OT Eval and treatsuppo rtive caremonito r fall risk and need for increased support in community vs need to transition to LTC, likely here for LTC Health Concerns Section Related Observation LastModified by Organization Detai ls LastModified Time None Recorded Concern Status LastModified by Organization Details LastModified Time None Recorded Payers Encounter Date Sequence Insurance Name Policy Number Policy Mackenzie Covered Member ID Mackenzie Member ID Guarantor Name 10/13/2024 1 [place] [employer] Vira Jules [id number] Vira Jules 10/13/2024 2 [place] [facility] Vira Jules [id number] Vira Jules Notes Date Note Type Note Provider Name and Address Organization Details Recorded Time 10/13/2024 text/html Pt is seen for a n acute visit. PMH: MDD, HTN, HLD, CAD, DM2, hypothyroidism, and GERD Vira is seen for fu to her rib pain and high bp. of note: Vira is an 84 yo female here for rehab and LTC after presenting to hospital with visual hallucinations, N/V/D. Dx with UTI felt no longer safe to be in community. Since here at [facility] she is weepy and not thriving. She had another fall on 10/11 at 640 pm with complaints of rib pain and abrasion to right side. She was started on scheduled tylenol and lidocaine patch with tramadol prn.xray was done and found 9th and 10th right rib fractures. On exam, Vira reports some pain to the right rib area and is tearful today. She reports she is tough and doesn't need anything right now. Will start sched tramadol 50 mg po bid x 5days. MOLST: assumed full code until guardian signs paperworkCurrently invoked: per hospital psychiatrist.BIMS however thinks she is in [facility] Melinda Lindo, STEVE [address] [facility], [address], [place], [address], [facility] [email or web address] 10/13/2024 15:02:11 OBGyn Episode No OBEpisode recorded.
--- OUTSIDE RECORDS SUMMARY | 2024-10-18 20:43 | XMS_ITS | Data Portability ---
Author Organization [facility], Main Office Address [address] [facility], [address] [place] [address] Care Team Providers Care Thread Drawer Name Role Phone RITA BRADFORD - 3RD FLOOR OTHER RAMON CHATMAN Primary Care Provider [phone] Assessment No assessment recorded. Plan of Treatment [...] Organization Details Recorded Time Acute kidney injury 51888490 Active 2024 Melinda Lindo NP [address] [facility], [address], [place], [address], [facility] 5 14:11:24 Gout 37549935 Active 2024 Melinda Lindo NP [address] [facility], [address], [place], [address], [facility] 5 14:11:31 Hypertensive disorder 91573367 Active 2024 Melinda Lindo NP [address] [facility], [address], [place], [address], [facility] 5 14:11:38 Hyperlipidemia 76628840 Active 2024 Melinda Lindo NP [address] [facility], [address], [place], [address], [facility] 5 14:11:45 Type 2 diabetes mellitus 17621431 Active 2024 Melinda Lindo NP [address], [address], [place], [address], [facility] 5 14:11:53 Gastroesophage al reflux disease 320488536 Active 2024 Melinda Lindo NP [address], [address], [place], [address], [facility] 5 14:11:59 Hypothyroidism 05696345 Active 2024 Melinda Lindo NP [address], [address], [place], [address], [facility] 5 14:12:13 Thrombocytosis 1544343 Active 2024 Melinda Lindo NP [address], [place], [address], [facility] 5 14:12:43 Urinary tract infectious disease 57342105 Active 2024 Melinda Lindo NP [address], [place], [address], [facility] 5 14:12:51 Dementia 82661182 Active 2024 Melinda Lindo NP [address] [facility], [address], [place], [address], [facility] 5 14:12:57 Mixed anxiety and depressive disorder 709663687 Active 2024 Melinda Lindo NP [address] [facility], [address], [place], [address], [facility] 5 14:25:13 Problem Notes None recorded. Medical Equipment None Reported. Allergies Allergen ID Allergen Name Allergen Category Reaction Reaction Severity Criticality Documentation Date Start Date Code Code System Note Provider Name and Address Organization Details Recorded Time 45293 bee pollen environme nt,medica tion other Not available unabletoasse 09/01/2024 72083 7 RxNorm Not Available Not Available Not Available 07515 morphine medicatio n other Not available unabletoasse 09/01/2024 7052 RxNorm unkno wn Not Available Not Available Not Available 20686 Product containin g penicilli n (product) medicatio n other Not available unabletoasse 09/01/2024 38108 8001 SNOMED unkno wn Not Available Not Available Not Available Medications Not known to be on any medication Vitals Date Recorded Body weight Heart rate Respiratory rate Body temperature Oxygen saturation Oxygen saturation in Arterial blood by Pulse oximetry Systolic blood pressure Diastolic blood pressure Provider Name and Address Organization Details Last Updated DateTime 5 05257.7 5 g 65 /min 18 /min 97.4 [degF] 95 % 95 % 122 mm[Hg] 64 mm[Hg] Melinda Lindo NP [address] [facility] [address], [place], [address], [employer] [facility] 5 12:09:36 Date Recorded Body weight Heart rate Respiratory rate Body temperature Oxygen saturation Oxygen saturation in Arterial blood by Pulse oximetry Systolic blood pressure Diastolic blood pressure Provider Name and Address Organization Details Last Updated DateTime 5 54242.7 5 g 67 /min 18 /min 97.6 [degF] 95 % 95 % 122 mm[Hg] 64 mm[Hg] Melinda Lindo NP [address] [facility] [address], [place], [address], [facility] 5 14:43:10 Date Recorded Body weight Heart rate Respiratory rate Body temperature Oxygen saturation Oxygen saturation in Arterial blood by Pulse oximetry Systolic blood pressure Diastolic blood pressure Provider Name and Address Organization Details Last Updated DateTime 5 75636.7 5 g 65 /min 18 /min 97.6 [degF] 96 % 96 % 156 mm[Hg] 87 mm[Hg] Melinda Lindo NP [address] [facility] [address], [place], [address], [facility] 5 10:33:38 Date Recorded Body weight Heart rate Respiratory rate Body temperature Oxygen saturation Oxygen saturation in Arterial blood by Pulse oximetry Systolic blood pressure Diastolic blood pressure Provider Name and Address Organization Details Last Updated DateTime 5 92192.7 5 g 70 /min 18 /min 97.9 [degF] 95 % 95 % 165 mm[Hg] 90 mm[Hg] Melinda Lindo NP [address], [address], [place], [address], [facility] 5 08:01:48 Date Recorded Body weight Heart rate Respiratory rate Body temperature Oxygen saturation Oxygen saturation in Arterial blood by Pulse oximetry Systolic blood pressure Diastolic blood pressure Provider Name and Address Organization Details Last Updated DateTime 5 49463.7 5 g 68 /min 18 /min 97.8 [degF] 94 % 94 % 179 mm[Hg] 95 mm[Hg] Melinda Lindo NP [address] [facility], [address], [place], [address], [facility] 5 14:49:04 Social History Question Answer Notes LastModified by Organizat ion Details LastModified Time Tobacco Smoking Status Former Smoker Melinda Lindo NP [address] [facility], [address], [place], [address], [facility] 09/01/2024 14:51:53 Do You Have An [...] Vaccine Type Date Status Note Provider Abad e and Address Organization Details Recorded Time Tdap 07/25/2023 completed Angela Erazo [facility] 09/01/2024 15:21:34 Tdap 08/30/2023 completed Angela Erazo [facility] 09/01/2024 15:21:41 Past Encounters Encounter ID Performer Location Encounter Start Date Encounter Closed Date Diagnosis/Indication Diagnosis SNOMED-CT Code Diagnosis ICD10 Code Diagnosis Note [id number] Melinda Lindo NP [address] [place] [address] 09/01/2024 13:45:30 09/02/2024 13:19:24 Urinary tract infectious disease 01593321 N39.0 pt had uti in hospresolv edmonitor for sequelae Dementia 34471448 F03.90 found to have cognitive decline in hospdeemed incompeten t by psychiatry while in hospital [facility] ip was arranged to Gisella Thomas, on aug 22.suppor tive care and directioni nvokedbims on 09/01/24mon itor Acute kidney injury 1466 9001 N17.9 AMAURY resolved in hospitalmo nitor for sequelae Thrombocytosis 1414027 D 75.839 thrombocyt osis noted in hospital and rec JAK2 testing outpt with ? myeloproli ferative disorder such as essential thrombocyt osis.hemat ology consult Hypothyroidism 54869244 E03.9 levothyrox ine changed to 100 mcg po qdtsh to be done in 4 weeksmonit or Type 2 vanessa betes mellitus 18470282 E11.9 felt controlled , while in hospital HAIC 6.8lantus reduced from 60 units to 12 units qhsiss continuedm onitor BS with meals and qhsdm dietadjust as needed Hyperlipidemia 53598739 E78.5 atorvastat in 10 mg qhsasa 81 mg po qdmonitor Gastroesop hageal reflux disease 564593882 K21.9 omeprazole 20 mg po bidmonitor Hypertensive disorder 38 110356 I10 amlodipine 10 mg po qd Gout 16475727 M10.9 hx ofcarrying dxmonitor Mixed anxi ety and depressive disorder 068782998 F41.8 ? MDDbupropr ion 200 mg bidfluoxet ine 40 mg po qdpsych consult prn [id number] Rommel Mendez MD [address] [address] 09/05/2024 09:25:38 09/06/2024 15:28:00 Metabolic encephalopathy 69525793 G93.41 altered mental status on presentati on to hospitalfe lt due to multiple causes including underlying cognitive impairment and infection with episode of suicidal ideationev aluated at hospital and deemed incompeten t with guardiansh ip pursued now in placeexten ded conversati on with patient explaining above Urinary tr act infectious disease 10389063 N30.00 monitor for recurrent infection Dementia 62940318 F03.90 see above with question underlying dementiawe llbutrin 200 mg bidfluoxet ine 40 mg qdguardian ship now in place Acute kidney injury 1466 9001 N17.8 appears due to N/V/Dimpro jessika with fluidsmoni tor renal function Thrombocytosis 7037976 D 75.838 Noted thrombocyt osis will f/u with heme out patientmon itor cbc Hypothyroidism 65596460 E03.8 tsh suppressed with synthroid dose lowered now onsynthroi d 100 mcg qdrecheck in 1 month Type 2 vanessa betes mellitus 07394362 E11.9 monitor blood glucose with lantus dose titrated Hyperlipidemia 44631166 E78.2 lipitor 10 mg qdcontinue dlipid panel if patient transition s to LTC Gastroesop hageal reflux disease 035451519 K21.9 omeprazole 20 mg po bidmonitor for sx relief Hypertensive disorder 38 121395 I10 norvasc 10 mg qdmonitor bp and need to adjust Mixed anxi ety and depressive disorder 363477062 F41.8 see abovewellb utrin 200 mg bidfluoxet ine 40 mg qdcontinue dmonitor moodpsych to eval at facility Asthenia 09416768 R53.1 PT OT Eval and treatmonit or fall risk and need for increased support in community vs need to transition to LTC [id number] Melinda Lindo NP [facility] [address] 09/15/2024 13:01:15 09/16/2024 13:47:04 Metabolic encephalopathy 21670058 G93.41 resolving with underlying dementiaal tered mental status on presentati on to hospitalfe lt due to multiple causes including underlying cognitive impairment and infection with episode of suicidal ideationev aluated at hospital and deemed incompeten t with guardiansh ip pursued now in place Dementia 18673705 F03.90 see above with question underlying dementiaco ntwellbutr in 200 mg bidfluoxet ine 40 mg qdguardian ship now in placeinvok ed Acute kidney injury 1466 9001 N17.8 appears due to dehydratio n which resolved in hospitalim proved with fluidsmoni tor renal function Thrombocytosis 2110138 D 75.838 thrombocyt osis notedhad hematology appt on 09/15 and rec: aspirin 81 mg po qd , will agreef/u with heme out patient in 3 monthsmoni tor cbc Asthenia 45955949 R53.1 PT OT Eval and treatmonit or fall risk and need for increased support in community vs need to transition to LTC Mixed anxi ety and depressive disorder 701775100 F41.8 see abovewellb utrin 200 mg bidfluoxet ine 40 mg qdcontinue dmonitor moodpsych to eval at facilitymo nitor and supportive redirectio n for exit seeking [id number] Melinda Lindo NP [address] [address] 09/23/2024 11:59:10 09/27/2024 09:08:50 Thrombocytosis 7275308 D75.838 thrombocyt osislast hematology appt on 09/15 rec:aspiri n 81 mg po qdf/u with heme out patient in 3 months approx 12/13monito r cbc prn Dementia 45389676 F03.90 underlying dementiaco ntwellbutr in 200 mg bidfluoxet ine 40 mg qdguardian ship now in placeinvok edsupporti ve care for exit seeking behaviors Metabolic encephalopathy 52942982 G93.41 resolving with underlying dementia and confusion at baseline likelyalte red mental status on presentati on to hospitalfe lt due to multiple causes including underlying cognitive impairment and infection with episode of suicidal ideationev aluated at hospital and deemed incompeten t with guardiansh ip pursued now in place Asthenia 02036087 R53.1 PT OT Eval and treatmonit or fall risk and need for increased support in community vs need to transition to LTC Mixed anxi ety and depressive disorder 357102498 F41.8 see abovewellb utrin 200 mg bidfluoxet ine 40 mg qdcontinue dmonitor moodpsych to eval at facilitymo nitor and supportive redirectio n for exit seeking [id number] Melinda Lindo NP [facility] [address] [address] 09/29/2024 09:09:06 10/03/2024 13:19:49 Dementia 83231943 F03.90 underlying dementiaco ntwellbutr in 200 mg bidfluoxet ine 40 mg qdguardian ship now in placeinvok ed with poor safety awarenesss upportive care for exit seeking behaviors Mixed anxi ety and depressive disorder 589732194 F41.8 see abovewellb utrin 200 mg bidfluoxet ine 40 mg qdcontinue dmonitor moodpsych to followmoni tor and supportive redirectio n for exit seeking Thrombocytosis 1548875 D 75.838 thrombocyt osislast hematology appt on 09/15 rec:contas pirin 81 mg po qdf/u with heme out patient in 3 months approx 12/13monito r cbc prn Asthenia 26976933 R53.1 PT OT Eval and treatsuppo rtive caremonito r fall risk and need for increased support in community vs need to transition to LTC, likely here for LTC Recurrent falls 32565376 2 R29.6 PT OT Eval and treatsuppo rtive carewith 2 falls unwitnesse d without injuriesmo nitor fall risk and need for increased support in community vs need to transition to LTC, likely here for LTC3/13 will start cbc and bmp and ua to ro infection [id number] Melinda Lindo NP [facility] [address] 10/03/2024 11:30:17 10/05/2024 10:19:22 Dementia 36166221 F03.90 underlying dementiaco ntwellbutr in 200 mg bidfluoxet ine 40 mg qdguardian ship now in placeinvok ed with poor safety awarenesss upportive care for exit seeking behaviors Thrombocytosis 5848108 D 75.838 thrombocyt osisconton 09/15 pt had hem/onc appt and started on asashe went for fu on 10/03 todaywas planned for f/u with heme out patient in 3 months approx 12/13, unsure if this is still neededwill cont aspirin 81 mg po qdnsg to reach out for plan/progr ess note/ and if they needed labsmonito r cbc prn Asthenia 22195214 R53.1 PT OT Eval and treatsuppo rtive caremonito r fall risk and need for increased support in community vs need to transition to LTC, likely here for LTC [id number] Melinda Lindo NP [facility] [address] 10/05/2024 14:31:26 10/07/2024 14:32:29 Dementia 35316085 F03.90 underlying dementiaco ntwellbutr in 200 mg bidfluoxet ine 40 mg qdguardian ship now in placeinvok ed with poor safety awarenesss upportive care for exit seeking behaviorsn ot felt safe to be in community alone Asthenia 92686961 R53.1 seems to be getting weakerPT OT Eval and treatsuppo rtive caremonito r fall risk and need for increased support in community vs need to transition to LTC, likely here for LTC Recurrent falls 79724120 2 R29.6 PT OT Eval and treatsuppo rtive careunwitn essed with with skin tearsmonit or fall risk and need for increased support in community vs need to transition to LTC, likely here for LTCmonitor labs checked on 09/30 will rec to repeat urine(was not done) Tear of skin 926852027 T 14.8XXS pt with 2 left skin tearsns wash, pat dry, let steri strips fall off on there own, change dressing q 3 daysmonito r [id number] Melinda Lindo NP [facility] [address] 10/10/2024 10:33:02 10/12/2024 15:10:32 Dementia 38857362 F03.90 underlying dementia now seems to be declining with increased behvaviors contwellbu dwayne 200 mg bidfluoxet ine 40 mg qdguardian ship now in placeinvok ed with poor safety awarenesss upportive care for exit seeking behaviorsn ot felt safe to be in community alone 10/10 psych consultsta rt trazodone 25 mg po q 8hours prn agitation x 14 days Asthenia 12408667 R53.1 seems to be getting weakerPT OT Eval and treatsuppo rtive caremonito r fall risk and need for increased support in community vs need to transition to LTC, likely here for LTC Recurrent falls 31150034 2 R29.6 having increased falls and weakness latelyPT OT Eval and treatsuppo rtive caremonito r fall risk and need for increased support in community vs need to transition to LTC, likely here for LTCmonitor labs recently stable Urinary tr act infectious disease 20194752 N39.0 due to increased behaviors and contaminat ed urine x2 and hx of utis with new behaviors and decline3/2 4 start cipro 500 mg po qd x 3 daysmonito r for sequelae Mixed anxi ety and depressive disorder 357173157 F41.8 see abovewellb utrin 200 mg bidfluoxet ine 40 mg qd10/10 start trazodone 25 mg po q 8 hours prn x 14 dayscontin uedmonitor moodpsych to followmoni tor and supportive redirectio n for exit seeking [id number] Melinda Lindo NP [address] [address] 10/12/2024 08:00:03 10/17/2024 08:16:27 Dementia 04586268 F03.90 underlying dementia now seems to be declining with increased behvaviors contwellbu dwayne 200 mg bidfluoxet ine 40 mg qdguardian ship in placeinvok ed with poor safety awarenesss upportive care for exit seeking behaviorsn ot felt safe to be in community alonepsych consulttra zodone 25 mg po q 8hours prn agitation x 14 days per psych Mixed anxi ety and depressive disorder 418801208 F41.8 see abovewellb utrin 200 mg bidfluoxet ine 40 mg qdon 10/10 started on trazodone 25 mg po q 8 hours prn x 14 dayscontin uedmonitor moodpsych to followmoni tor and supportive redirectio n for exit seeking Urinary tr act infectious disease 92390971 N39.0 due to increased behaviors and contaminat ed urine x2 and hx of utis with new behaviors and declineon 10/10 started cipro 500 mg po qd x 3 daysmonito r for sequelae Asthenia 35980523 R53.1 seems to be getting weakerPT OT Eval and treatsuppo rtive caremonito r fall risk and need for increased support in community vs need to transition to LTC, likely here for LTC Recurrent falls 50103452 2 R29.6 having increased falls and weakness lately and fall last evening with co of pain to ribsPT OT Eval and treatsuppo rtive caremonito r fall risk and need for increased support in community vs need to transition to LTC, likely here for LTCmonitor labs recently stable Rib pain 941711119 R07.8 1 co right rib pain and slight abrasion sp fall on xr ay ordered last night, pendingdre ssing on right rib area, change daily for abrasionty lenol 1000 mg po tid sched, tyl prn on hold x 14 dayslidoca ine patch 4% to right rib and back qd add tramadol 50 mg po q 6 hours prn painmonito r [id number] Melinda Lindo NP [address] [address] 10/13/2024 14:48:17 10/17/2024 11:18:33 Rib pain 451829145 R07.81 co right rib pain and slight [...] got any prn doses yetmonitor Recurrent falls 15245118 2 R29.6 having increased falls and weakness lately and fall last evening with co of pain to ribsPT OT Eval and treatsuppo rtive caremonito r fall risk and need for increased support in community vs need to transition to LTC, likely here for LTCmonitor labs recently stable Dementia 60483674 F03.90 underlying dementia now seems to be declining with increased behvaviors contwellbu dwayne 200 mg bidfluoxet ine 40 mg qdguardian ship in placeinvok ed with poor safety awarenesss upportive care for exit seeking behaviorsn ot felt safe to be in community alonepsych consulttra zodone 25 mg po q 8hours prn agitation x 14 days per psych Mixed anxi ety and depressive disorder 963498156 F41.8 see abovewellb utrin 200 mg bidfluoxet ine 40 mg qdtrazodon e 25 mg po q 8 hours prn x 14 dayscontin uedmonitor moodpsych to followmoni tor and supportive redirectio n for exit seeking Urinary tr act infectious disease 78025201 N39.0 due to increased behaviors and contaminat ed urine x2 and hx of utis with new behaviors and declinecon t cipro 500 mg po qd x 3 daysmonito r for sequelae Asthenia 22628196 R53.1 seems to be getting weakerPT OT Eval and treatsuppo rtive caremonito r fall risk and need for increased support in community vs need to transition to LTC, likely here for LTC Health Concerns Section Related Observation LastModified by Organization Detai ls LastModified Time None Recorded Concern Status LastModified by Organization Details LastModified Time None Recorded Advance Directives Directive N: full code Payers Encounter Date Sequence Insurance Name Policy Number Policy Mackenzie Covered Member ID Mackenzie Member ID Guarantor Name 10/03/2024 1 [place] [employer] Vira Jules [id number] Vira Jules 10/03/2024 2 [place] [facility] Vira Jules [id number] Vira Jules 10/05/2024 1 MED[place] B-[place]: [facility] [employer] Vira Jules [id number] Vira Jules 10/05/2024 2 [place] Vira Jules [id number] Vira Jules 10/10/2024 1 [place] [employer] Vira Jules [id number] Vira Jules 10/10/2024 2 [place] [facility] Vira Jules [id number] Vira Jules 10/12/2024 1 [place]: [facility] Vira Jules [id number] Vira Jules 10/12/2024 2 [place] [facility] Vira Jules [id number] Vira Jules 10/13/2024 1 [place] [facility] Vira Jules [id number] Vira Jules 10/13/2024 2 [place] [facility] Vira Jules [id number] Vira Jules Notes Date Note Type Note Provider Name and Address Organization Details Recorded Time 10/03/2024 text/html Pt is seen for a n acute rounding visit. PMH: MDD, HTN, HLD, CAD, DM2, hypothyroidism, and GERD Vira is an 84 yo female here for rehab and care after presenting to hospital with visual hallucinations, N/V/D. Dx with UTI felt no longer safe to be in community. She followed up with oncology for thrombocyctosis and was started on aspirin 81 mg po daily on 09/16/24. Today, Vira is returning from her fu with Dr Phan and no progress note or consult rec noted. Will have nursing reach out and get note and ask if labs from 09/30 need to be sent to them and for plan of f/u. On exam, Vira is motoring in wheelchair in [place]. She is pleasantly confused and denies any complaints. No s/s of bleeding, nausea, vomiting. She does remain notably weak and continues with therapy. MOLST: assumed full code until guardian signs paperworkCurrently invoked: per hospital psychiatrist.BIMS however thinks she is in [facility] Melinda Lindo, STEVE [address] [facility], [address], [place], [address], [facility] 10/03/2024 12:17:15 10/05/2024 text/html Pt is seen for a n acute visit. PMH: MDD, HTN, HLD, CAD, DM2, hypothyroidism, and GERD Pt is an 84 yo female here for rehab and LTC after presenting to hospital with visual hallucinations, N/V/D. Dx with UTI felt no longer safe to be in community. She is seen for fall today. She reports she was trying to go to have a BM and fell on her way. On exam, She is seen on the toilet have a regular BM today, appears brown, soft, and formed. She denies any pain or concerns. States her headache is resolved. She suffered 2 skin tears to the left mar just below the knee and nursing was able to apply steri strips and approx wound edges. Dressing can be changed q 3 days. She has an ecchymotic area purple to mid abd. She denies nausea, pain, or vomiting to that area. She was seen by therapy and no notable favoring of one side or other concerns, just seems to be weak. Labs done and stable. Will need to repeat urine. MOLST: assumed full code until guardian signs paperworkCurrently invoked: per hospital psychiatrist.[place] however thinks she is in [facility] Melinda Lindo NP [address] [facility], [address], [place], [address], [facility] [employer] 10/05/2024 15:01:28 10/10/2024 text/html Pt is seen for a n acute visit. PMH: MDD, HTN, HLD, CAD, DM2, hypothyroidism, and GERD Pt is an 84 yo female here for rehab and LTC after presenting to hospital with visual hallucinations, N/V/D. Dx with UTI felt no longer safe to be in community. Overall, Vira is having increased falls and weepiness lately. On exam, Vira is seen in her room talking to herself and crying. She is having a conversation about going home by herself. She has water on the floor and wants new clothes. A nurses aide is in to help her. A urinalysis was sent, however noted likely contaminated. Due to change in condition and leukocytes in urine with unlikeliness of obtaining a new sample will treat for possible UTI. Labs done and stable recently.. MOLST: assumed full code until guardian signs paperworkCurrently invoked: per hospital psychiatrist.[place] however thinks she is in [facility] Melinda Lindo NP [address] [facility], [address], [place], [address], [employer] 10/10/2024 11:13:13 10/12/2024 text/html Pt is seen for a n acute visit. PMH: MDD, HTN, HLD, CAD, DM2, hypothyroidism, and GERD Vira is an 84 yo female here for rehab and LTC after presenting to hospital with visual hallucinations, N/V/D. Dx with UTI felt no longer safe to be in community. Since here at [place] [facility] is we[facility] and not thriving. She had another fall on 10/11 at 640 pm with complaints of rib pain and abrasion to right side. geodetic engineer notified and an xray was ordered. She remains with increased falls and two contaminated urine samples, she was started on cipro on 10/10 for a probable UTI. On exam, Vira is sitting up eating breakfast, tearful and complains of right rib pain today. No obvious deformities, however not able to palpate ribs completely as she reported pain and tenderness. Denies sob, or other injuries. A small abrasion is noted on the right rib less than 1 cm. vitals stable. MOLST: assumed full code until guardian signs paperworkCurrently invoked: per hospital psychiatrist.BIMS however thinks she is in [facility] Melinda Lindo, STEVE [address], [address], [place], [address], [employer] 10/12/2024 09:56:35 10/13/2024 text/html Pt is seen for a [...] to be in community. Since here at [facility] she is weepy and not thriving. She [...] hospital psychiatrist.BIMS however thinks she is in [facility] Melinda Lindo, STEVE [address], [address], [place], [address], [facility] - [facility] 10/13/2024 15:02:11 OBGyn Episode No OBEpisode recorded.
--- OUTSIDE RECORDS SUMMARY | 2024-10-18 20:44 | XMS_ITS | Data Portability ---
Author Organization [place] [facility] Address [address] [place] [address] Assessment Encounter Date Assessment Date Assessment LastModified by Organization Details LastModified Time 02/09/2020 02/09/2020 Overview/History : 79-year-old female with past medical history significant for insulin dependent diabetes mellitus, hypertension, hyperlipidemia, hypothyroidism, GERD, depression, and history of left breast cancer status post partial mastectomy, history of skin cancer and uterine cancer, who is new to [facility] and presents with complaints of right wrist pain after fall yesterday. Yesterday she was in [place] visiting her mother for her 1 hundredth birthday. She says that she was very emotional and they were not allowed inside due to COVID. It was very hot out. She states that she was feeling well in her usual state of health. They were going to leave and she believes she may have tripped over something. She ambulates with a cane. She fell on her arms and hit her head. Her daughter helped her up. She has had no trouble walking or bearing weight. She denies chest pain, shortness of breath, lightheadedness, blurry vision, otorrhea, epistaxis, dysphagia, nausea, vomiting, diarrhea, headache, confusion, slurred speech, or feeling any crack or pop in her wrist. Her right wrist and elbow hurt to move. She does have some tenderness around her right eye as well. She denies any numbness, tingling, or weakness. Exam: afebrile, hypertensive, and hemodynamically stable. GENERAL: well developed, well nourished, appears stated age, sitting comfortably in no acute distress. HEENT: normocephalic, skull nontender, right orbital ecchymosis TTP, no crepitus, PERRL, EOMI, sclera anicteric, no hyphema, conjunctival injection, external auditory canal clear, no sherman sign or otorrhea, nares patent, posterior pharynx without lesions, or erythema, moist mucus membranes. NECK: trachea midline, no masses, cervical lymphadenopathy, or thyromegaly, full ROM. SPINE: non-TTP. RESP: normal I:E, clear to auscultation bilaterally, no wheezes, rhonchi, or rales. CARDIO: RRR, normal S1, S2, no murmurs, rubs, or gallops, radial, ulnar, brachial pulses 2+ bilaterally. MUSK: right anatomical snuff box TTP, right proximal radius and ulna TTP, limited abduction and adduction of digits on right hand, limited flexion and extension of right wrist and elbow, otherwise normal strength, ROM, muscle tone, no atrophy. NEURO: awake, alert, oriented x3, CN 8 dysfunction on the left, otherwise CN2-12 grossly intact, moving all extremities spontaneously, distal b/l UE neurovascularly intact. SKIN: small abrasion over right knee, good turgor, no cyanosis, pallor, rash, lesions, or lacerations. DDx considered, but not limited to: skull fracture - unlikely, skull non-tender and w/o deformity. orbital fracture - possible with orbital ecchymosis and tenderness. SDH - possible given ALFREDO, on ASA, with CN 8 dysfunction. radial head fracture - possible with right radial head tenderness and limited ROM. scaphoid fracture - possible given ALFREDO and anatomical snuff box tenderness. Work up/Results: Pt escalated to ED for further work up and mgmt. Plan/Discussion: Pt escalated to ED for further work up and mgmt of new onset left sided hearing loss after fall and head injury as well as right elbow pain and wrist pain concerning for scaphoid fracture. Pt understands and agrees with this plan. 911 called, report given to EMS on scene. daniel Not available 02/09/2020 17:33:41 Plan of Treatment Reminders Order Date Submit [...] Name and Address Organization Details Recorded Time Diabetes mellitus 36436568 Active 020 ANUP CEDILLO [address], [place], [address], [place] [facility] 0 16:34:08 Problem Notes None recorded. Medical Equipment None Reported. Allergies Allergen ID Allergen Name Allergen Category Reaction Reaction Severity Criticality Documentation Date Start Date Code Code System Note Provider Name and Address Organization Details Recorded Time 980736 Product containin g penicilli n (product) medicatio n Not available Not available Not available 02/09/2020 86631 8001 SNOMED ANUP CEDILLO [address], [place], [address], [place] [facility] 0 16:33:50 513349 morphine medicatio n Not available Not available Not available 02/09/2020 7052 RxNorm ANUP CEDILLO [address], [place], [address], [place] [facility] 0 16:33:58 Medications Name Sig Start Date Stop Date Status Note LastModified by Organization Details LastModified Time fluoxetine 40 mg capsule active Not Available Not Available N ot Available furosemide 40 mg tablet active Not Available Not Available No t Available clindamycin HCl 300 mg capsule 02/08 completed Not Available Not Available Not Available atorvastatin 10 mg tablet active Not Available Not Available No t Available prednisone 20 mg tablet active Not Available Not Available No t Available Humalog U-100 Insulin 100 unit/mL subcutaneous solution active Not Available Not Available Not Available omeprazole 20 mg capsule,delayed release active Not Available Not Available Not Available lisinopril 40 mg tablet active Not Available Not Available No t Available metformin ER 500 mg tablet,extended release 24 hr active Not Available Not Availabl e Not Available levothyroxine 112 mcg tablet active Not Available Not Availab le Not Available bupropion HCl SR 200 mg tablet,12 hr sustained-relea se active Not Available Not Available Not Available aspirin active Not Available Not Avail able Not Available Humalog KwikPen (U-100) Insulin 100 unit/mL subcutaneous active Not Available Not Available Not Available Levemir FlexTouch U-100 Insulin 100 unit/mL (3 mL) subcutaneous pen active Not Available Not Available Not Available Vitals Date Recorded Body temperature Respiratory rate Heart rate Oxygen saturation Oxygen saturation in Arterial blood by Pulse oximetry Systolic blood pressure Diastolic blood pressure Provider Name and Address Organization Details Last Updated DateTime 0 98.4 [degF] 18 /min 92 /min 94 % 94 % 146 mm[Hg] 78 mm[Hg] Not Available [facility] 0 16:37:46 Social History Question Answer Notes LastModified by Organizat ion Details LastModified Time Tobacco Smoking Status Former Smoker ANUP CEDILLO [address], [place], [address], [place] [facility] 02/09/2020 16:37:15 Do You Have An Advance Directive? Yes [employer] Information not available 02/09/2020 What Is Your Code Status? Full Code badBeijing Legend [employer] Information not available 02/09/2020 Within The Past 12 Months, Has It Happened That The Food You Bought Just Didn't Last And You Didn't Have Money To Get More. No [employer] Information not available 02/09/2020 Within The Past 12 Months, Have You Worried That Your Food Would Run Out Before You Got Money To Buy More. No [employer] Information not available 02/09/2020 Fall Risk: Do You Feel Unsteady When Standing Or Walking? Yes [employer] Information not available 02/09/2020 We Know That How And When People Interact With Friends And Family Can Be Very Different From Person To Person. How Often Do You Have The Opportunity To See Or Talk To People That You Care About And Feel Close To? (Ex: Talking To Friends On The Phone Or Visiting Friends Or Family Or Going To Muslim Or Club Meetings) 5 Or More Times Per Week badBeijing Legend [employer] Information not available 02/09/2020 Excessive Alcohol Or Drug Use No [employer] Information not available 02/09/2020 We Know From Many Of Our Patients That Covering All Of Their Costs Can Be Difficult At Times. This Can Cause Stress And Impact Health. In The Past Year, Have You Been Unable To Get Any Of The Following When It Was Really Needed? No badBeijing Legend [employer] Information not available 02/09/2020 What Is Your Housing Situation Today? I Have Housing Information not available 02/09/2020 Would You Like Help Connecting To Resources? None Information not available 02/09/2020 How Much Tobacco Do You Smoke? 1 PPD Information not available 02/09/2020 How Many Years Have You Smoked Tobacco? 15 daniel Information not available 02/09/2020 Sex: Unknown Functional Status None recorded. Mental Status None recorded. Family History Relationship Description Onset Age of this Age Resolved Age Notes LastModified by Organization Details LastModified Time Brother Malignant neoplastic disease lung CA daniel Not available 02/09/2020 16:40:07 Sister Malignant neoplastic disease lung CA daniel Not available 02/09/2020 16:40:28 Medical History Condition Response Diabetes Y High Cholesterol Y Cancer Y Pulmonary Embolism N Stroke N Hypertension Y Depression Y COPD N Asthma N Kidney Disease N Gynecological HistoryNo gynecological history recorded. Obstetrics History GPAL:G 0 P 0 0 0 0 Past Encounters Encounter ID Performer Location Encounter Start Date Encounter Closed Date Diagnosis/Indication Diagnosis SNOMED-CT Code Diagnosis ICD10 Code Diagnosis Note [id number] ANUP CEDILLO [facility] [address] [place] [address] 02/09/2020 16:31:48 02/10/2020 12:56:30 Hearing loss 76300821 H91.92 Injury of head 80127753 S09.90XA Closed fra cture of right wrist 8612540967 9825966 S62.91XA Closed fra cture of head of left radius [id number] 9539544 S52.125A Health Concerns Section Related Observation LastModified by Organization Detai ls LastModified Time None Recorded Concern Status LastModified by Organization Details LastModified Time None Recorded Advance Directives Directive Y: Payers Encounter Date Sequence Insurance Name Policy Number Policy Mackenzie Covered Member ID Mackenzie Member ID Guarantor Name 02/09/2020 1 [place] [employer] Vira Dhara [id number] Vira Dhara 02/09/2020 2 [facility] - MEDICARE PREFERRED (MEDICARE REPLACEMENT HMO) [id number] Vira Jules [id number] Vira Jules Notes Date Note Type Note Provider Name and Address Organization Details Recorded Time 02/09/2020 text/html [facility] 79[facility] female with past medical history significant for insulin dependent diabetes mellitus, hypertension, hyperlipidemia, hypothyroidism, GERD, depression, and history of left breast cancer status post partial mastectomy, history of skin cancer and uterine cancer, who is new to [facility] and presents with complaints of right wrist pain after fall yesterday. Yesterday she was in [place] visiting her mother for her 1 hundredth birthday. She says that she was very emotional and they were not allowed inside due to COVID. It was very hot out. She states that she was feeling well in her usual state of health. They were going to leave and she believes she may have tripped over something. She ambulates with a cane. She fell on her arms and hit her head. Her daughter helped her up. She has had no trouble walking or bearing weight. She denies chest pain, shortness of breath, lightheadedness, blurry vision, otorrhea, epistaxis, dysphagia, nausea, vomiting, diarrhea, headache, confusion, slurred speech, or feeling any crack or pop in her wrist. Her right wrist and elbow hurt to move. She does have some tenderness around her right eye as well. She denies any numbness, tingling, or weakness. ANUP CEDILLO [address] [place] [address] [place], [address], [place] [facility] 02/09/2020 17:33:47 OBGyn Episode No OBEpisode recorded.
--- OUTSIDE RECORDS SUMMARY | 2024-10-18 20:44 | XMS_ITS | Encounter Summary ---
Author Organization [employer] Address [address] [place] [address] Care Team Providers Care Manufacturing Chief Engineer Name Role Phone Rommel Mendez MD Primary Care Provider [phone] Encounter Details Date Type Department Care Team (Latest Contact Info) Description 09/30/2024 Lab Requisition [facility] - Main Lab [address] [facility] [place] [address] Rommel Mendez MD [address] [address], [phone] Type 2 diabetes mellitus without complications (CMS/HCC); Hypothyroidism, unspecified; Hyperlipidemia, unspecified; Essential (primary) hypertension; Hallucinations, unspecified; Essential (hemorrhagic) thrombocythemia (CMS/HCC) Social History Tobacco [...] Associated Diagnosis Comments COMPLETE BLOOD COUNT Routine 09/30/2024 8:19 AM EDT Type 2 diabetes mellitus without complications (CMS/HCC) Hypothyroidism, unspecified Hyperlipidemia, unspecified Essential (primary) hypertension Hallucinations, unspecified Essential (hemorrhagic) thrombocythemia (CMS/HCC) BASIC METABOLIC PANEL Routine 09/30/2024 8:19 AM EDT Type 2 diabetes mellitus without complications (CMS/HCC) Hypothyroidism, unspecified Hyperlipidemia, unspecified Essential (primary) hypertension Hallucinations, unspecified Essential (hemorrhagic) thrombocythemia (CMS/HCC) documented in this encounter Results * (ABNORMAL) Basic metabolic panel (09/30/2024 8:19 AM EDT) Sodium 135 133 - 145 mmol/L LAB CHEMISTRY METHOD 09/30/2024 11:35 AM [facility] Potassium 3.5 3.5 - 5.5 mmol/L LAB CHEMISTRY METHOD 09/30/2024 11:35 AM [facility] Chloride 98 96 - 110 mmol/L LAB CHEMISTRY METHOD 09/30/2024 11:35 AM [facility] CO2 27 21 - 32 mmol/L LAB CHEMISTRY METHOD 09/30/2024 11:35 AM [facility] Anion Gap 10 3 - 11 LAB CHEMISTRY METHOD 09/30/2024 11:35 AM [facility] Glucose 127(H) 70 - 100 mg/dL LAB CHEMISTRY METHOD 09/30/2024 11:35 AM [facility] BUN 12 5 - 25 mg/dL LAB CHEMISTRY METHOD 09/30/2024 11:35 AM [facility] Creatinine 0.90 0.50 - 1.10 mg/dL LAB CHEMISTRY METHOD 09/30/2024 11:35 AM [facility] eGFR 64 >=60 mL/min/1. 73m2 LAB CHEMISTRY METHOD 09/30/2024 11:35 AM [facility] Comment:Calculation based on the??Chronic Kidney Disease Epidemiology Collaboration (CKD-EPI) equation refit??without adjustment for race. BUN/Creatinine Ratio 13.3 LAB CHEMISTRY METHOD 09/30/2024 11:35 AM [facility] Calcium 9.0 8.5 - 10.5 mg/dL LAB CHEMISTRY METHOD 09/30/2024 11:35 AM [facility] Blood Venous blood specimen / Unknown Venipuncture / Unknown 09/30/2024 8:19 AM EDT 09/30/2024 10:41 AM EDT us Rommel Mendez MD LAB BLOOD ORDERABLES Final Resul t [facility] [address] [place] [address], * (ABNORMAL) Complete blood count (09/30/2024 8:19 AM EDT) WBC 7.3 4.8 - 10.8 K/mcL LAB HEMETOLOGY METHOD 09/30/2024 11:[address] [facility] RBC 5.30(H) 3.80 - 4.80 M/mcL LAB HEMETOLOGY METHOD [facility] Hemoglobin 12.4 11.5 - 16.0 g/dL LAB HEMETOLOGY METHOD 09/30/2024 11:11 AM [facility] Hematocrit 40.9 35.0 - 47.0 % LAB HEMETOLOGY METHOD 09/30/2024 11:11 AM [facility] MCV 77.2(L) 79.0 - 98.0 FL LAB HEMETOLOGY METHOD 09/30/2024 11:11 AM [facility] MCH 23.4(L) 27.0 - 32.0 pcg LAB HEMETOLOGY METHOD 09/30/2024 11:[address] [facility] MCHC 30.3(L) 32.0 - 37.0 g/dL LAB HEMETOLOGY METHOD 09/30/2024 11:11 AM [facility] RDW 19.1(H) 11.0 - 15.0 % LAB HEMETOLOGY METHOD 09/30/2024 11:11 AM [facility] Platelets 633(H) 130 - 400 K/mcL LAB HEMETOLOGY METHOD 09/30/2024 11:[address] [facility] MPV 9.6 7.0 - 11.0 FL LAB HEMETOLOGY METHOD 09/30/2024 11:[address] [facility] NRBC 0.0 <1.0 % LAB HEMETOLOGY METHOD 09/30/2024 11:[address] [facility] NRBC Absolute 0.00 <0.10 K/mcL LAB HEMETOLOGY METHOD 09/30/2024 11:[address] [facility] Blood Venous blood specimen / Unknown Venipuncture / Unknown 09/30/2024 8:19 AM EDT 09/30/2024 10:41 AM EDT us Rommel Mendez MD LAB BLOOD ORDERABLES Final Resul t [facility] [address] [place] [address], documented in this encounter Visit Diagnoses Diagnosis Type 2 diabetes mellitus without complications Hypothyroidism, unspecified Hyperlipidemia, unspecified Essential (primary) hypertension Unspecified essential hypertension Hallucinations, unspecified Essential (hemorrhagic) thrombocythemia documented in this encounter Care Teams Manufacturing Chief Engineer Relationship Specialty Start Date End Date Rommel Mendez MD [address] [place] [phone] PCP - General Family Medicine 09/01/24 documented as of this encounter
--- OUTSIDE RECORDS SUMMARY | 2024-10-18 20:44 | XMS_ITS | Encounter Summary ---
Author Organization [employer] Address [address] [place] [address] Care Team Providers Care Division Manager Name Role Phone Rommel Mendez MD Primary Care Provider [phone] Encounter Details Date Type Department Care Team (Late st Contact Info) Description 10/07/2024 Lab Requisition [facility] - Main Lab [address] [facility] [place] [address] Rommel Mendez MD [address] [facility] [address] [place], [address] Type 2 diabetes mellitus without complications (CMS/HCC); Repeated falls; Altered mental status, unspecified Social History Tobacco Use Types Packs/Day Years [...] complications Repeated falls Altered mental status, unspecified documented in this encounter Results * Culture urine (10/07/2024 6:00 AM EDT) Pathologist [facility] Culture, Urine 50,000-99,000 CFU/mL Mixed bacterial morphotypes present suggestive of possible contamination during collection. Suggest appropriate recollection if clinically indicated. 10/09/2024 10:55 AM EDT [facility] Urine Urine specimen obtained by clean catch procedure / Unknown Non-blood Collection / Unknown 10/07/2024 6:00 AM EDT 10/07/2024 12:42 PM EDT us Rommel Mendez MD LAB MICROBIOLOGY - GENERAL ORDER GERALDINE Final Result [facility] [address] [place] [address], [place] [phone] * (ABNORMAL) Urinalysis with reflex microscopic and culture (10/07/2024 6:00 AM EDT) [facility] Specific [place] Urine 1.011 1.003 - 1.030 LAB URINALYSIS - AUTOMATED METHOD 10/07/2024 12:42 PM [facility] pH, Urine 7.0 5.0 - 8.0 pH LAB URINALYSIS - AUTOMATED METHOD 10/07/2024 12:42 PM [facility] Leukocytes, Urine Trace(A) Negative LAB URINALYSIS - AUTOMATED METHOD 10/07/2024 12:42 PM [facility] Nitrite, Urine Negative Negative LAB URINALYSIS - AUTOMATED METHOD 10/07/2024 12:42 PM [facility] Protein, Urine 30(A) <=Trace mg/dL LAB URINALYSIS - AUTOMATED METHOD 10/07/2024 12:42 PM [facility] Glucose, Urine Negative Negative mg/dL LAB URINALYSIS - AUTOMATED METHOD 10/07/2024 12:42 PM [facility] Ketones, Urine Negative Negative mg/dL LAB URINALYSIS - AUTOMATED METHOD 10/07/2024 12:42 PM EDT [facility] Urobilinogen, Urine 0.2 0.2 - 1.0 mg/dL LAB URINALYSIS - AUTOMATED METHOD 10/07/2024 12:42 PM T [facility] Bilirubin, Urine Negative Negative LAB URINALYSIS - AUTOMATED METHOD 10/07/2024 12:42 PM EDT [facility] Blood, Urine Negative Negative LAB URINALYSIS - AUTOMATED METHOD 10/07/2024 12:42 PM [facility] RBC, Urine 0 0 - 4 /HPF LAB URINALYSIS - AUTOMATED METHOD 10/07/2024 12:42 PM [facility] WBC, Urine 6.8(H) 0 - 4 /HPF LAB URINALYSIS - AUTOMATED METHOD 10/07/2024 12:42 PM [facility] Squamous Epithelial, Urine >100(H) 0 - 60 /LPF LAB URINALYSIS - AUTOMATED METHOD 10/07/2024 12:42 PM [facility] Bacteria, Urine Negative Negative /HPF LAB URINALYSIS - AUTOMATED METHOD 10/07/2024 12:42 PM [facility] Hyaline Casts, Urine 2.0 0 - 3 /LPF LAB URINALYSIS - AUTOMATED METHOD 10/07/2024 12:42 PM [facility] Urine Urine specimen obtained by clean catch procedure / Unknown Non-blood Collection / Unknown 10/07/2024 6:00 AM EDT 10/07/2024 11:14 AM EDT us Rommel Mendez MD LAB URINE ORDERABLES Final Resul t [facility] [address] [place] [address], * Dixon urine culture tube (10/07/2024 6:00 AM EDT) Extra Tube Hold for add-ons. 10/07/2024 1:02 PM EDT [facility] Comment:Auto resulted. Urine Urine specimen obtained by clean catch procedure / Unknown Non-blood Collection / Unknown 10/07/2024 6:00 AM EDT 10/07/2024 11:14 AM EDT us Rommel Mendez MD LAB URINE ORDERABLES Final Resul t [facility] [address] [place] [address], documented in this encounter Visit Diagnoses Diagnosis Type 2 diabetes mellitus without complications Repeated falls Altered mental status, unspecified documented in this encounter Care Teams Division Manager Relationship Specialty Start Date End Date Rommel Mendez MD [address] [place] [phone] PCP - General Family Medicine 09/01/24 documented as of this encounter
--- OUTSIDE RECORDS SUMMARY | 2024-10-18 20:44 | XMS_ITS | Encounter Summary ---
Author Organization [employer] Address [address] [place] [address] Care Team Providers Care Network Associate Name Role Phone Rommel Mendez MD Primary Care Provider [phone] Encounter Details Date Type Department Care Team (Late st Contact Info) Description 09/23/2024 Lab Requisition [facility] - Main Lab [address] [place] [address] Rommel Mendez MD [address] [place] [address] [address] [place], [phone] Hypothyroidism, unspecified Social History Tobacco Use Types Packs/Day [...] Procedure Name Priority Date/Time Associated Diagnosis Comments THYROID STIMULATING HORMONE WITH REFLEX TO FREE T4 AND FREE T3 Routine 09/26/2024 7:30 AM EDT Hypothyroidism, unspecified documented in this encounter Results * Thyroid stimulating hormone with reflex to free t4 and free t3 (09/26/2024 7:30 AM EDT) TSH 2.60 0.40 - 4.00 mcIU/mL LAB CHEMISTRY METHOD 09/26/2024 11:38 AM EDT [facility] ([facility]) [facility] Blood Venous blood specimen / Unknown Venipuncture / Unknown 09/26/2024 7:30 AM EDT 09/26/2024 10:50 AM EDT us Rommel Mendez MD LAB BLOOD ORDERABLES Final Resul t [facility] ([facility]) HOSP[facility] LAB [address] [place] [address], documented in this encounter Visit Diagnoses Diagnosis Hypothyroidism, unspecified documented in this encounter Care Teams Network Associate Relationship Specialty Start Date End Date Rommel Mendez MD [address] [place] [address] [address] [place] [address] PCP - General Family Medicine 09/01/24 documented as of this encounter
[2024-10-18 20:50] LABS: MANUAL DIFF FLAG NO
[2024-10-18 20:56] LABS: Basophils Absolute Auto 0.1 X10*3/uL (0.0-0.2); Basophils Percent Auto 0.5 % (0-2); Eosinophils Absolute Auto 0.2 X10*3/uL (0.0-0.4); Eosinophils Percent Auto 1.7 % (0-4); Hematocrit 38.6 % (37.0-47.0); Hemoglobin 12.2 g/dl (12.0-16.0); Imm Gran Abs Auto 0.04 X10*3/uL (0.00-0.03); Imm Gran Pct Auto 0.4 % (0.0-0.4); Lymphocytes Absolute Auto 2.5 X10*3/uL (1.2-4.9); Lymphocytes Percent Auto 25.3 % (20-40); Mean Corpuscular HGB Conc 31.6 g/dl (31.0-35.0); Mean Corpuscular Hemoglobin 24.3 pg (27.0-33.0); Mean Corpuscular Volume 76.9 fL (80.0-98.0); Mean Platelet Volume 9.1 fL (9.4-12.3); Monocytes Absolute Auto 0.6 X10*3/uL (0.1-1.2); Neutrophils Absolute Auto 6.6 x10*3/uL (2.0-8.3); Neutrophils Percent Auto 66.1 % (45-73); Platelet Count 505 X10*3/uL (160-400); Red Blood Count 5.02 X10*6/uL (4.20-5.50); Red Cell Distribution Width 20.2 % (11.0-16.0)
[2024-10-18 21:05] LABS: Prothrombin Time 11.1 SEC (10.9-12.4)
[2024-10-18 21:07] LABS: Partial Thromboplastin Time 27.3 SEC (26.0-36.8)
[2024-10-18 21:18] VITALS: BP 145/76; PULSE 82; RESP 16; TEMP 36.4; O2SAT 96
--- NOTE | 2024-10-18 21:36 | ED_ITS ---
HPI - Fall General Chief Complaint: Fall Stated Complaint: fall w/ headstrike, no thinners Time Seen by Provider: 10/18/24 20:11 Source: patient and EMS Mode of arrival: EMS Limitations: no limitations History of Present Illness ED Provider: Dr. Radha Milner HPI Narrative: Patient comes to the emergency room via ambulance from [facility]. Seems that patient left her room without a walker, unsupervised and fell. Patient had initially a bloody nose in the called EMS. according to the staff, patient is not on any blood thinners. Patient states that she feels well, denies headache, , denies headache, denies any upper or lower extremity pain. Related Data Home Medications ?Medication ?Instructions ?Recorded ?Confirmed aspirin 81 mg chewable tablet 81 mg PO DAILY 10/18/23 07/11/24 bupropion HCl 200 mg tablet,12 hr 200 mg PO BID 10/18/23 07/11/24 sustained-release acetaminophen 325 mg tablet 650 mg PO Q4H PRN Pain 07/11/24 07/11/24 amlodipine 5 mg tablet 10 mg PO DAILY 07/11/24 07/20/24 cholecalciferol (vitamin D3) 50 50 mcg PO DAILY 07/11/24 07/11/24 mcg (2,000 unit) tablet (Vitamin D3) lidocaine 5 % topical patch 1 patch topical DAILY PRN Pain 07/11/24 07/11/24 omeprazole 20 mg capsule,delayed 20 mg PO BID 07/20/24 07/20/24 release Previous Rx's ?Medication ?Instructions ?Recorded atorvastatin 10 mg tablet 10 mg PO BEDTIME #30 tabs 12/25/22 fluoxetine 40 mg capsule 40 mg PO DAILY #0 caps 12/25/22 insulin glargine 100 unit/mL (3 12 unit (0.12 mL) subcut DAILY #15 08/31/24 mL) subcutaneous pen (Lantus mL Solostar U-100 Insulin) insulin lispro 100 unit/mL See Protocol subcut QIDACHS #10 mL 08/31/24 subcutaneous solution (Admelog U-100 Insulin lispro) levothyroxine 100 mcg tablet 100 mcg PO DAILY@0600 #30 tabs 08/31/24 (Synthroid) hydroxyurea 500 mg capsule 500 mg PO DAILY #30 caps 10/03/24 Allergies Allergy/AdvReac Type Severity Reaction Status Date / Time bee pollen [BEE STINGS] Allergy Unknown UNKNOWN Verified 10/18/24 20:20 morphine [MORPHINE] Allergy Unknown UNKNOWN Verified 10/18/24 20:20 Penicillins [PENICILLINS] Allergy Unknown UNKNOWN Verified 10/18/24 20:20 Review of Systems 2 Review of Systems: Constitutional : No Weight loss, No Fever, No Chills, No Night Sweats, No Fatigue, No Malaise ENT/Mouth : Epistaxis earlier today now controlled, No Hearing loss, No Ear Pain, No Nasal Congestion, No Sinus Pain, No Hoarseness, No sore throat, No Rhinorrhea, No Swallowing Difficulty Eyes: No Eye Pain, No Swelling, No Redness, No Foreign Body, No Discharge, No Vision Changes Cardiovascular : No Chest Pain, No SOB, No Dyspnea on Exertion, No Orthopnea, No Edema, No Palpitations Respiratory : No Cough, No Sputum, No Wheezing, No Smoke Exposure, No Dyspnea Gastrointestinal : No Nausea, No Vomiting, No Diarrhea, No Constipation, No abdominal Pain, No Hematochezia, No Melena Genitourinary : no irregular bleeding, No Dysuria, No Urinary Frequency, No Hematuria, No Urinary Incontinence, No Urgency, No Flank Pain, No Urinary Flow Changes, No Hesitancy Musculoskeletal : No joint pain, No Myalgias, No Joint Swelling Skin : No Skin Lesions, No rash Neuro : No Weakness, No Numbness, No Paresthesias, No Loss of Consciousness, No Dizziness, No Headache Psych : No Anxiety/Panic, No Depression, No SI/HI/AH/VH, No Social Issues, Heme/Lymph: No Bruising, No Bleeding,No Lymphadenopathy Endocrine : No Polyuria, No Polydipsia, No Temperature Intolerance [facility] Past Medical History Medical History CAD (coronary artery disease) Insulin dependent type 2 diabetes mellitus HLD (hyperlipidemia) HTN (hypertension) Diabetes MDD (major depressive disorder), recurrent episode, moderate Social History Social History Household Members: None Housing: Apartment Do you presently have visiting nurse or other home services: Yes Alcohol intake: former Comment: Sitter d/c Patient Tobacco Use Status: Never used Tobacco e-Cigarette/Vaping Use: Never Used Advance Directives: Yes Advance Directives on File: Yes Advance Directives Date on File: 10/19/23 Do you have a plan to hurt others: No Plan service: No Current occupational status: retired Sexual orientation: Straight/Heterosexual Physical Exam 2 Vital Signs: Vital Signs: Last Vital Signs Temp 97.6 F 10/18/24 21:18 Pulse 82 10/18/24 21:18 Resp 16 10/18/24 21:18 BP 145/76 H 10/18/24 21:18 Pulse Ox 96 10/18/24 21:18 O2 Del Method Room Air 10/18/24 21:18 BMI result Body Mass Index 26.4 Const: Other: Appearance: Alert. Oriented X3. No acute distress. Eyes: Pupils equal, round and reactive to light. ENT: Pharynx normal. scant amount of dry blood on the right nostril, no active bleeding Neck: Normal inspection. Neck supple. No lymph nodes noted. No crepitus CVS: Normal heart rate and rhythm. Pulses normal. Normal S1 and S2 Respiratory: No respiratory distress. Breath sounds normal. No Wheezing. No rales Abdomen: Soft and nontender. No rigidity. No distention. back: No pain to palpation of the cervical/ thoracic or lumbar back Skin: Skin warm and dry. Normal skin color. Normal skin turgor. Extremities: No lower extremity edema. No Lacerations. No Rash, normal flexion and extension in both upper and lower extremities. , no hip pain, normal flexion and extension of the hips bilaterally Neuro: Oriented X 3. No motor deficit. No sensory deficit. Moving all extremities. No slurred speech. CN 2 through 12 grossly intact Psych: calm, cooperative, normal affect Medical Decision Making Medical Decision Making MDM Narrative: CT scan of the head and neck did not show any acute abnormalities. Patient denies any pain my interpretation of labs: no significant abnormality in patient's hematology and chemistry , negative for UTI Differential Diagnosis Differential Diagnoses: The differential diagnosis associated with the presentation includes ( UTI, mechanical fall, contusion, concussion) Lab Data [facility] Lab Attestation statement: I reviewed the patient's lab results. 10/18/24 20:43 10/18/24 21:52 Labs: Lab Results 10/18/24 10/18/24 10/18/24 Range/Units 20:43 21:52 22:08 WBC 10.0 (4.8-10.8) X10*3/uL RBC 5.02 (4.20-5.50) X10*6/uL Hgb 12.2 (12.0-16.0) g/dl Hct 38.6 (37.0-47.0) % MCV 76.9 L (80.0-98.0) fL MCH 24.3 L (27.0-33.0) pg MCHC 31.6 (31.0-35.0) g/dl RDW 20.2 H (11.0-16.0) % Plt Count 505 H D (160-400) X10*3/uL MPV 9.1 L (9.4-12.3) fL Immature Gran % (Auto) 0.4 (0.0-0.4) % Neut % (Auto) 66.1 (45-73) % Lymph % (Auto) 25.3 (20-40) % [place] % (Auto) 6.0 (2-11) % Eos % (Auto) 1.7 (0-4) % Baso % (Auto) 0.5 (0-2) % Lymph # (Auto) 2.5 (1.2-4.9) X10*3/uL [place] # (Auto) 0.6 (0.1-1.2) X10*3/uL Eos # (Auto) 0.2 (0.0-0.4) X10*3/uL Baso # (Auto) 0.1 (0.0-0.2) X10*3/uL Abs Immat Gran (auto) 0.04 H (0.00-0.03) X10*3/uL Absolute Neuts (auto) 6.6 (2.0-8.3) x10*3/uL Absolute Nucleated RBC 0.000 (0.0-0.012) X10*3/uL Nucleated RBC % (auto) 0.0 (0.0-0.2) /100WBC PT 11.1 (10.9-12.4) SEC INR 1.0 (0.9-1.1) APTT 27.3 (26.0-36.8) SEC Sodium 138 (135-145) mmol/L Potassium 3.2 L D (3.3-5.1) mmol/L Chloride 106 (96-108) mmol/L Carbon Dioxide 26 (22-29) mmol/L Anion Gap 9 L (12-20) BUN 13 (9-16) mg/dL Creatinine 0.89 (0.5-1.4) mg/dL Estim Creat Clear Calc 39.9 Estimated GFR > 60 Random Glucose 149 H (60-115) mg/dL Calcium 9.0 (8.4-10.2) mg/dL Total Bilirubin 0.2 (0.0-1.0) mg/dL Direct Bilirubin < 0.2 (0.0-0.5) mg/dL AST 28 (5-31) U/L ALT 16 (0-31) U/L Alkaline Phosphatase 83 (39-117) U/L Total Protein 6.9 (6.5-8.0) g/dL Albumin 3.5 (3.5-5.0) g/dL Urine Color Yellow Urine Appearance Clear Urine pH 6.0 (5.0-9.0) Ur Specific [place] 1.015 (1.005-1.025) Urine Protein 100 (2+) H (Neg-Trace) mg/dL Urine Glucose (UA) Negative (Negative) mg/dL Urine Ketones Negative (Negative) mg/dL Urine Blood Negative (Negative) Urine Nitrite Negative (Negative) Ur Leukocyte Esterase Trace H (Negative) Independent Interpretation I performed an independent interpretation of an: CT Scan Radiology Impression Discussion of test interpretation with radiology: I have reviewed the radiologist's reading. Radiologist Impression: Minimal grade 1 anterolisthesis at C3-4 and C4-5. Otherwise alignment is maintained. Vertebral body height overall maintained. No acute fracture in the cervical spine. Craniocervical junction is intact. Degenerative disc disease and spondylotic changes most significantly involving C5-6 and C6-7 levels with canal and foraminal stenosis at these levels, stable. Multilevel facet arthropathy. Prevertebral soft tissues within normal limits Atherosclerotic vascular disease stable very small left thyroid hypodense nodule. Lung apices are clear. No intra-axial mass, midline shift, hydrocephalus, or acute hemorrhage. Prominence of the ventricular system and subarachnoid spaces consistent with atrophy. Prominent bilateral supratentorial confluent periventricular and subcortical white matter hypodensities similar to previous examination. This is nonspecific and may represent chronic white matter ischemic changes. Stable bilateral thalamic hypodensities likely nonacute lacunar infarcts. Atherosclerotic vascular disease Stable 2.4 cm right posterior lateral temporal extra-axial calcified mass consistent with meningioma with focal mass effect upon the adjacent brain parenchyma. Mild mucosal thickening in left maxillary sinus. Minimal mucosal thickening in right maxillary sinus. Otherwise sinuses and mastoid air cells are clear. The orbits are unremarkable. There is no acute skull fracture. IMPRESSION: 1. No acute intracranial findings. 2. Stable right posterior temporal meningioma. 3. Stable atrophy and prominent white matter hypodensities likely chronic ischemic changes and nonacute lacunar infarcts. Critical Care Time Critical Care Time Critical Care Time: Yes Total Critical Care Time: 35 Attestation: I have personally provided critical care time. Time includes review of lab data, radiology results, discussion with consultants, and monitoring for potential decompensation. Intervention performed as documented. Discharge Plan Discharge Clinical Impression: Fall, Epistaxis Patient Disposition: Home, Self-Care Instructions: Nosebleed (ED), Fall Prevention for Older Adults (ED) Additional Instructions: Please follow-up with your primary care physician tomorrow. If you have any worsening or new symptoms, please return to the emergency room or call 911 Prescriptions: No Action aspirin 81 mg Tablet,Chewable 81 mg PO DAILY bupropion HCl 200 mg tablet sustained-release 12 hr 200 mg PO BID hydroxyurea 500 mg Capsule 500 mg PO DAILY Qty: 30 3RF fluoxetine 40 mg capsule 40 mg PO DAILY Qty: 0 0RF atorvastatin 10 mg Tablet 10 mg PO BEDTIME Qty: 30 0RF amlodipine 5 mg tablet 10 mg PO DAILY acetaminophen 325 mg Tablet 650 mg PO Q4H PRN (Reason: Pain) lidocaine 5 % Adhesive Patch,Medicated 1 patch TOPICAL DAILY PRN (Reason: Pain) Rx Instructions: leave on most painful area for up to 12 hrs cholecalciferol (vitamin D3) [Vitamin D3] 50 mcg (2,000 unit) Tablet 50 mcg PO DAILY omeprazole 20 mg capsule,delayed release(DR/EC) 20 mg PO BID levothyroxine [Synthroid] 100 mcg Tablet 100 mcg PO DAILY@0600 Qty: 30 0RF insulin lispro [Admelog U-100 Insulin lispro] 100 unit/mL Solution See Protocol subcut QIDACHS Qty: 10 0RF Protocol: Insulin Correction Scale Less than or equal to 110 ---- Give (units): 0 111 to 150 Give (units): 0 151 to 200 Give (units): 2 201 to 250 Give (units): 4 251 to 300 Give (units): 6 301 to 350 Give (units): 8 Greater than 350 Give (units): 10 Call MD if Blood Glucose > : 350 Rx Instructions: BG <111 0 units, 111-150 - 0 units, 151-200 2 units, 201-250 4 units, 251-300 6 units, 301-350 8 units, >350 10 units insulin glargine [Lantus Solostar U-100 Insulin] 100 unit/mL (3 mL) insulin pen 12 unit subcut DAILY Qty: 15 0RF Print Language: [place]
[2024-10-18 22:14] LABS: Alanine Aminotransferase 16 U/L (0-31); Albumin Level 3.5 g/dL (3.5-5.0); Alkaline Phosphatase 83 U/L (39-117); Anion Gap 9 (12-20); Aspartate Amino Transferase 28 U/L (5-31); Bilirubin Direct < 0.2 mg/dL (0.0-0.5); Bilirubin Total 0.2 mg/dL (0.0-1.0); Blood Urea Nitrogen 13 mg/dL (9-16); Carbon Dioxide 26 mmol/L (22-29); Chloride 106 mmol/L (96-108); Creatinine Clr Calc Pharmacy 39.9; Estimated Glomerular Filt Rate > 60; Glucose Random 149 mg/dL (60-115); Potassium 3.2 mmol/L (3.3-5.1); Sodium 138 mmol/L (135-145); Total Protein 6.9 g/dL (6.5-8.0)
--- NOTE | 2024-10-18 22:14 | PC.NURSE ---
pt ambulated with walker without assist. steady. urinated CYU into hat. urine sent. back in bed now
[2024-10-18 22:25] LABS: Appearance Urine Clear; Color Urine Yellow; Glucose Urine UA Negative (Negative); Leukocyte Esterase Urine Trace (Negative); Nitrite Urine Negative (Negative); Specific Gravity - Urine 1.015 (1.005-1.025); UMIC TRIGGER UACC YES; Urine Blood Negative (Negative); Urine Ketones Negative (Negative); Urine Protein 100 (2+) mg/dL (Neg-Trace)
[2024-10-18 22:38] LABS: Bacteria Urine 1+ (None Seen); UACC Culture Trigger YES
[2024-10-18] MEDS: Potassium Chloride Packet 20 MEQ PACKET PO (22:45)
[2024-10-18 23:46] VITALS: BP 142/74; PULSE 87; RESP 20; TEMP 37; O2SAT 98
[2024-10-19 00:35] VITALS: BP 142/74; PULSE 87; RESP 20; TEMP 37; O2SAT 98
== END 2024-10-19 00:45 | disposition home or self-care (01) ==
PROVIDERS: Emergency Provider Emergency Medicine; PCP Family Medicine
DX: R04.0 Epistaxis (principal); M54.2 Cervicalgia; Z91.81 History of falling; E11.9 Type 2 diabetes mellitus without complications; I10 Essential (primary) hypertension; E78.5 Hyperlipidemia, unspecified; R41.82 Altered mental status, unspecified; Z79.02 Long term (current) use of antithrombotics/antiplatelets; Z79.82 Long term (current) use of aspirin; Z79.4 Long term (current) use of insulin
CPT/HCPCS: 36415; 70450; 72125; 80048; 80076; 81001; 85025; 85610; 85730; 87086; 99284

== ENCOUNTER → 2024-10-18 20:33 | Outpatient (BNV) | payer MEDICARE, MEDICAID, SELFPAY | PROVIDERS: Emergency Provider Emergency Medicine; PCP Family Medicine; Visit Provider Specialist | DX: M54.2 Cervicalgia (principal); W19.XXXA Unspecified fall, initial encounter; D32.0 Benign neoplasm of cerebral meninges; R90.82 White matter disease, unspecified | CPT/HCPCS: 70450; 72125 ==

== ENCOUNTER 2024-12-21 13:37 | Emergency (ER) | payer MEDICARE, MEDICAID, SELFPAY ==
--- NOTE | ~2024-12-21 | XR_ITS ---
CLINICAL HISTORY: Fall, rule out fracture, pneumothorax 1 view chest x-ray Comparison: None Findings: The lungs are clear. 2.6 cm nodular density of the right lower lung. Heart size is normal. No acute fracture. IMPRESSION: No pneumothorax. 2.6 cm nodular density of the right lower lung. Further evaluation by CT chest is recommended. This document has been electronically signed by: Christiano Welch MD on 12/21/2024 17:03:24
--- NOTE | ~2024-12-21 | XR_ITS ---
EXAMINATION: XR HIP, RIGHT CLINICAL INFORMATION: Fall, 5 days prior, right hip pain R/O fracture COMPARISON: Right hip 05/19/2024 TECHNIQUE: Two views of the right hip. FINDINGS: There is a healing fracture right intertrochanter hip with moderate hypertrophic osteoarthropathy or callus formation along the soft tissues. Mild loss of right hip joint space with no visible acute fracture or dislocation seen. There is suspicion for right superior pubic ramus fracture. No additional bony abnormality. There is moderate stool in the rectum and sigmoid colon. The left hip joint space is normal. There are degenerative disc changes and moderate spondylosis lower lumbar spine. XR/XR hip RT w PEL1V IMPRESSION: Suspect new fracture right superior pubic ramus. There is a right greater trochanteric displaced fracture with hypertrophic osteoarthropathy or exuberant soft tissue callus formation. There is mild osteopenia. Electronically signed by: Ramu Shankar MD 12/21/2024 04:46 PM EDT
[2024-12-21 13:59] VITALS: BP 142/78; PULSE 84; O2SAT 96
[2024-12-21 14:00] VITALS: BP 146/87; PULSE 86; RESP 16; TEMP 36.5; O2SAT 96; BMI 23.4
--- NOTE | 2024-12-21 14:34 | PHA.MEDREC ---
Addendum entered by Tomasz Little PharmD 12/21/24 14:36: reviewed Original Note: Pharmacy Consult ? Medication Reconciliation Pharmacy has completed the medication reconciliation. Utilized list from [facility] to confirm med list.
--- NOTE | 2024-12-21 15:13 | ED.FALL ---
HPI - Fall General Chief Complaint: Fall Stated Complaint: Fall w/ r hip fx shown on xray, SNF Time Seen by Provider: 12/21/24 15:12 Source: patient Mode of arrival: EMS Limitations: no limitations History of Present Illness ED Provider: Dr. Cedric Yusuf HPI Narrative: 84-year-old female with a past medical history significant for major depressive disorder, HTN, HLD, CAD, IDDM, hypothyroid and GERD, presented to the for evaluation of a fall 5 days prior and a fractured hip. The patient that has no complaints. Patient has a resident of [facility]. Transfer paperwork include a radiology report dated 12/21/2024 with the following reading: Results: Avulsion fracture of right greater trochanter. Conclusion: Acute right greater trochanter fracture The patient has no complaints. She states she is able to walk without any difficulty. At the time my evaluation she said she is having no and she does not know why she is here in the emergency department. She is oriented to person, place, she knew the month but not the year. Related Data Home Medications ?Medication ?Instructions ?Recorded ?Confirmed bupropion HCl 200 mg tablet,12 hr 200 mg PO BID 10/18/23 12/21/24 sustained-release acetaminophen 325 mg tablet 650 mg PO Q4H PRN Fever Or Pain 07/11/24 12/21/24 amlodipine 5 mg tablet 10 mg PO DAILY 07/11/24 12/21/24 lidocaine 5 % topical patch 1 patch topical DAILY PRN Pain 07/11/24 12/21/24 omeprazole 20 mg capsule,delayed 20 mg PO BID 07/20/24 12/21/24 release acetaminophen 500 mg tablet 500 mg PO Q8H PRN Fever Or Pain 12/21/24 12/21/24 ascorbic acid (vitamin C) 500 mg 500 mg PO DAILY 12/21/24 12/21/24 tablet (Vitamin C) aspirin 81 mg tablet,delayed 81 mg PO DAILY 12/21/24 12/21/24 release bisacodyl 10 mg rectal suppository 10 mg PA DAILY PRN Constipation 12/21/24 12/21/24 cholecalciferol (vitamin D3) 25 25 mcg PO DAILY 12/21/24 12/21/24 mcg (1,000 unit) tablet (Vitamin D3) magnesium hydroxide 400 mg/5 mL 30 ml PO DAILY PRN Constipation 12/21/24 12/21/24 oral suspension (Milk of Magnesia) naloxone 4 mg/actuation nasal 4 mg intranasal Q3M PRN Opiate 12/21/24 12/21/24 spray (Narcan) Reversal olanzapine 2.5 mg tablet 2.5 mg PO DAILY 12/21/24 12/21/24 sodium phosphates 19 gram-7 118 ml PA DAILY PRN Constipation 12/21/24 12/21/24 gram/118 mL enema (Fleet Enema) tramadol 50 mg tablet 50 mg PO Q12H PRN Pain 12/21/24 12/21/24 Previous Rx's ?Medication ?Instructions ?Recorded atorvastatin 10 mg tablet 10 mg PO BEDTIME #30 tabs 12/25/22 fluoxetine 40 mg capsule 40 mg PO DAILY #0 caps 12/25/22 insulin glargine 100 unit/mL (3 12 unit (0.12 mL) subcut DAILY #15 08/31/24 mL) subcutaneous pen (Lantus mL Solostar U-100 Insulin) insulin lispro 100 unit/mL See Protocol subcut QIDACHS #10 mL 08/31/24 subcutaneous solution (Admelog U-100 Insulin lispro) levothyroxine 100 mcg tablet 100 mcg PO DAILY@0600 #30 tabs 08/31/24 (Synthroid) hydroxyurea 500 mg capsule 500 mg PO DAILY #30 caps 10/03/24 ferrous sulfate 325 mg (65 mg 325 mg PO DAILY #60 tabs 12/14/24 iron) tablet (Iron (ferrous sulfate)) Allergies Allergy/AdvReac Type Severity Reaction Status Date / Time bee pollen [BEE STINGS] Allergy Unknown UNKNOWN Verified 12/21/24 14:01 morphine [MORPHINE] Allergy Unknown UNKNOWN Verified 12/21/24 14:01 Penicillins [PENICILLINS] Allergy Unknown UNKNOWN Verified 12/21/24 14:01 [facility] Past Medical History [facility] Narrative: Social history: The patient is a resident a [facility]. Medical History CAD (coronary artery disease) Insulin dependent type 2 diabetes mellitus HLD (hyperlipidemia) HTN (hypertension) Diabetes MDD (major depressive disorder), recurrent episode, moderate Social History Social History Household Members: None Housing: Apartment Do you presently have visiting nurse or other home services: Yes Alcohol intake: former Comment: Philomena d/ghassan Patient Tobacco Use Status: Never used Tobacco Smoked in Last 30 Days: No e-Cigarette/Vaping Use: Never Used Use of substances other than those prescribed or required for medical reasons: No Advance Directives: Yes Advance Directives on File: Yes Advance Directives Date on File: 10/19/23 Do you have a plan to hurt others: No Plan service: No Current occupational status: retired Sexual orientation: Straight/Heterosexual Physical Exam Vital Signs: Vital Signs: Last Vital Signs Temp 97.7 F 12/21/24 14:00 Pulse 86 12/21/24 14:00 Resp 16 12/21/24 14:00 BP 146/87 H 12/21/24 14:00 Pulse Ox 96 12/21/24 14:00 O2 Del Method Room Air 12/21/24 14:00 BMI result Body Mass Index 23.4 Exam: General: Awake, alert in no distress Head: Normocephalic, atraumatic EENT: PERRL, Lids normal, sclera normal, conjunctiva normal, nose normal , ears normal, throat without erythema or exudates Neck: Supple, no adenopathy Lung: breath sounds symmetric, no wheezing, rales or rhonchi Chest: symmetric movement, nontender Heart: regular rate and rhythm, normal S1, S2 no murmurs or rubs Abdomen: soft, non-tender, nondistended, normal bowel sounds Back: no vertebral tenderness, no CVAT Extremities: no deformities, palpation over the right hip joint or right lateral hip, no pain with movement of the hip Neuro: Awake, alert, oriented to person and place, normal speech, cranial nerves intact, moves all extremities symmetrically Psych: Pleasant, cooperative Medical Decision Making Medical Decision Making MDM Narrative: 84-year-old female with a past medical history significant for major depressive disorder, HTN, HLD, CAD, IDDM, hypothyroid and GERD, presented to the for evaluation of a fall 5 days prior and a fractured hip. The patient that has no complaints. Patient has a resident of [facility]. Patient had an x-ray of her right hip a day which revealed an avulsion fracture of the right greater trochanter. The patient has no complaints. She told me that she has no pain. She told me that she can walk without any difficulty but does fall frequently. She was oriented to person, place month but not year. Physical examination revealed no tenderness palpation of the hip, no pain with log-rolling or bending of the hip joint. Differential diagnosis: ?Includes but is not limited to right hip fracture, pelvic fracture, contusion, sprain Course: 18:58 My independent interpretation patient's laboratory evaluation is as follows: Normocytic anemia with an H&H of 11.3 and 34.8 with an MCV of 86.9. Creatinine of 0.86. Elevated AST and ALT of 35 and 40. X-ray of the patient's right hip and pelvis revealed a right greater trochanteric avulsion fracture and a new fracture of the right superior pubic ramus. I did discuss these findings over tiger text with the covering orthopedic physician bilingual administrative assistant, Khushi Atkinson. Recommended that the patient avoid abduction as tolerated with walker with orthopedic follow-up. Therefore, the patient will be discharged back to her care facility. The patient did have an incidental 2.6 cm right upper lobe nodule noted on your chest x-ray. The patient will have to pursue follow-up with this as per her PCP with the radiologist is recommending a dedicated CT scan of the chest to further evaluate this nodule. Admission/Observation Consideration of admission/observation: Escalation of care including admission/observation considered (Yes) Consult Healthcare Provider Management of the patient was discussed with: Tip Cutter (Orthopedic physician bilingual administrative assistant, Khushi Vásquez) Lab Data MDM Lab Attestation statement: I reviewed the patient's lab results. 12/21/24 15:38 12/21/24 15:38 Labs: Lab Results 12/21/24 Range/Units 15:38 WBC 8.1 (4.8-10.8) X10*3/uL RBC 3.96 L (4.20-5.50) X10*6/uL Hgb 11.3 L (12.0-16.0) g/dl Hct 34.4 L (37.0-47.0) % MCV 86.9 (80.0-98.0) fL MCH 28.5 (27.0-33.0) pg MCHC 32.8 (31.0-35.0) g/dl RDW 24.7 H (11.0-16.0) % Plt Count 316 (160-400) X10*3/uL MPV 8.6 L (9.4-12.3) fL Immature Gran % (Auto) 0.4 (0.0-0.4) % Neut % (Auto) 61.8 (45-73) % Lymph % (Auto) 26.2 (20-40) % [place] % (Auto) 7.2 (2-11) % Eos % (Auto) 3.7 (0-4) % Baso % (Auto) 0.7 (0-2) % Lymph # (Auto) 2.1 (1.2-4.9) X10*3/uL [place] # (Auto) 0.6 (0.1-1.2) X10*3/uL Eos # (Auto) 0.3 (0.0-0.4) X10*3/uL Baso # (Auto) 0.1 (0.0-0.2) X10*3/uL Abs Immat Gran (auto) 0.03 (0.00-0.03) X10*3/uL Absolute Neuts (auto) 5.0 (2.0-8.3) x10*3/uL Absolute Nucleated RBC 0.000 (0.0-0.012) X10*3/uL Nucleated RBC % (auto) 0.0 (0.0-0.2) /100WBC APTT 26.0 (26.0-36.8) SEC Sodium 140 (135-145) mmol/L Potassium 3.8 (3.3-5.1) mmol/L Chloride 107 (96-108) mmol/L Carbon Dioxide 27 (22-29) mmol/L Anion Gap 10 L (12-20) BUN 20 H (9-16) mg/dL Creatinine 0.86 (0.5-1.4) mg/dL Estim Creat Clear Calc 41.7 Estimated GFR > 60 Random Glucose 101 (60-115) mg/dL Calcium 9.0 (8.4-10.2) mg/dL Magnesium 1.7 (1.6-2.6) mg/dL Total Bilirubin 0.2 (0.0-1.0) mg/dL AST 35 H (5-31) U/L ALT 40 H (0-31) U/L Alkaline Phosphatase 88 (39-117) U/L Total Protein 7.0 (6.5-8.0) g/dL Albumin 3.5 (3.5-5.0) g/dL Lipase 37 (8-78) U/L Salicylates < 5.0 L (15-30) mg/dL Blood Type O Negative Antibody Screen NEGATIVE Independent Interpretation I performed an independent interpretation of an: Plain X-Ray Interpretation: My independent interpretation of the patient's chest x-ray is as follows, no acute disease, 2.6 cm nodule density in the right upper lobe My independent interpretation of the patient's right hip and pelvis x-ray is as follows: Right greater trochanteric fracture and right superior ramus fracture Radiology Impression Discussion of test interpretation with radiology: I have reviewed the radiologist's reading. Radiologist Impression: 1 view chest x-ray Comparison: None Findings: The lungs are clear. 2.6 cm nodular density of the right lower lung. Heart size is normal. No acute fracture. IMPRESSION: No pneumothorax. 2.6 cm nodular density of the right lower lung. Further evaluation by CT chest is recommended. This document has been electronically signed by: Christiano Welch MD on 12/21/2024 17:03:24 XR hip RT w PEL1V IMPRESSION: Suspect new fracture right superior pubic ramus. There is a right greater trochanteric displaced fracture with hypertrophic osteoarthropathy or exuberant soft tissue callus formation. There is mild osteopenia. Electronically signed by: Ramu Shankar MD 12/21/2024 04:46 PM EDT External Record Review External record reviewed: Inpatient record Chronic Conditions Patient?s care impacted by: Diabetes, Hypertension and Other (Hyperlipidemia) Discharge Plan Discharge Clinical Impression: Fall, Closed fracture of greater trochanter of right femur, Closed fracture of right superior pubic ramus, Incidental pulmonary nodule, less than or equal to 3mm Patient Disposition: Xfer LTC Instructions: Pulmonary Nodules (ED) Additional Instructions: Your blood work was unremarkable. The x-ray of your right hip and pelvis did reveal a right greater trochanter avulsion fracture and a right superior pubic ramus fracture. I did discuss these findings with our covering physician bilingual administrative assistant, Khushi Atkinson. These fractures do not required operative repair. She is recommending to avoid abduction and weight-bearing as tolerated with walker and follow-up with orthopedics. Therefore I am sending you back to your care facility for further treatment. Your chest x-ray did reveal an incidental 2.6 cm right upper lobe nodule. Radiologist is recommending an dedicated CT scan of the chest, you will need to discuss this with your provider to see if this is something that should be done as an outpatient.. Continue taking your medications as prescribed by your providers Follow-up with your doctor in 2 days. Please return to the emergency department if your symptoms get worse or if you develop any symptoms that are concerning to you. Your x-ray impressions are below. 1 view chest x-ray Comparison: None Findings: The lungs are clear. 2.6 cm nodular density of the right lower lung. Heart size is normal. No acute fracture. IMPRESSION: No pneumothorax. 2.6 cm nodular density of the right lower lung. Further evaluation by CT chest is recommended. This document has been electronically signed by: Christiano Welch MD on 12/21/2024 17:03:24 XR hip RT w PEL1V IMPRESSION: Suspect new fracture right superior pubic ramus. There is a right greater trochanteric displaced fracture with hypertrophic osteoarthropathy or exuberant soft tissue callus formation. There is mild osteopenia. Electronically signed by: Ramu Shankar MD 12/21/2024 04:46 PM EDT Prescriptions: No Action bupropion HCl 200 mg tablet sustained-release 12 hr 200 mg PO BID hydroxyurea 500 mg Capsule 500 mg PO DAILY Qty: 30 3RF ferrous sulfate [Iron (ferrous sulfate)] 325 mg (65 mg iron) Tablet 325 mg PO DAILY Qty: 60 3RF fluoxetine 40 mg capsule 40 mg PO DAILY Qty: 0 0RF atorvastatin 10 mg Tablet 10 mg PO BEDTIME Qty: 30 0RF amlodipine 5 mg tablet 10 mg PO DAILY acetaminophen 325 mg Tablet 650 mg PO Q4H PRN (Reason: Fever Or Pain) lidocaine 5 % Adhesive Patch,Medicated 1 patch TOPICAL DAILY PRN (Reason: Pain) Rx Instructions: leave on most painful area for up to 12 hrs omeprazole 20 mg capsule,delayed release(DR/EC) 20 mg PO BID levothyroxine [Synthroid] 100 mcg Tablet 100 mcg PO DAILY@0600 Qty: 30 0RF insulin lispro [Admelog U-100 Insulin lispro] 100 unit/mL Solution See Protocol subcut QIDACHS Qty: 10 0RF Protocol: Insulin Correction Scale Less than or equal to 110 ---- Give (units): 0 111 to 150 Give (units): 0 151 to 200 Give (units): 2 201 to 250 Give (units): 4 251 to 300 Give (units): 6 301 to 350 Give (units): 8 Greater than 350 Give (units): 10 Call MD if Blood Glucose > : 350 Rx Instructions: BG <111 0 units, 111-150 - 0 units, 151-200 2 units, 201-250 4 units, 251-300 6 units, 301-350 8 units, >350 10 units insulin glargine [Lantus Solostar U-100 Insulin] 100 unit/mL (3 mL) insulin pen 12 unit subcut DAILY Qty: 15 0RF olanzapine 2.5 mg Tablet 2.5 mg PO DAILY aspirin [Aspir-81] 81 mg Tablet,Delayed Release (Dr/Ec) 81 mg PO DAILY tramadol 50 mg Tablet 50 mg PO Q12H PRN (Reason: Pain) acetaminophen 500 mg Tablet 500 mg PO Q8H PRN (Reason: Fever Or Pain) magnesium hydroxide [Milk of Magnesia] 400 mg/5 mL Suspension 30 ml PO DAILY PRN (Reason: Constipation) Rx Instructions: For no BM in 3 days ascorbic acid (vitamin C) [Vitamin C] 500 mg Tablet 500 mg PO DAILY bisacodyl [Biscolax] 10 mg Suppository 10 mg PA DAILY PRN (Reason: Constipation) Rx Instructions: if no BM if M.O.M ineffective Fleet Enema 19-7 gram/118 mL Enema 118 ml PA DAILY PRN (Reason: Constipation) Rx Instructions: For no BM &IF Bisacodyl supp. ineffective cholecalciferol (vitamin D3) [Vitamin D3] 25 mcg (1,000 unit) Tablet 25 mcg PO DAILY naloxone [Narcan] 4 mg/actuation [place],Non-Aerosol 4 mg INTRANASAL Q3M PRN (Reason: Opiate Reversal) Rx Instructions: spray 1 dose into ONE nostril; alternate nostrils w each dose until help arrives Print Language: Haitian
[2024-12-21 15:42] LABS: MANUAL DIFF FLAG NO
--- NOTE | 2024-12-21 15:43 | PC.NURSE ---
Per MD, hold off on meds at this time.
[2024-12-21 15:44] LABS: Basophils Absolute Auto 0.1 X10*3/uL (0.0-0.2); Basophils Percent Auto 0.7 % (0-2); Eosinophils Absolute Auto 0.3 X10*3/uL (0.0-0.4); Eosinophils Percent Auto 3.7 % (0-4); Hematocrit 34.4 % (37.0-47.0); Hemoglobin 11.3 g/dl (12.0-16.0); Imm Gran Abs Auto 0.03 X10*3/uL (0.00-0.03); Imm Gran Pct Auto 0.4 % (0.0-0.4); Lymphocytes Absolute Auto 2.1 X10*3/uL (1.2-4.9); Lymphocytes Percent Auto 26.2 % (20-40); Mean Corpuscular HGB Conc 32.8 g/dl (31.0-35.0); Mean Corpuscular Hemoglobin 28.5 pg (27.0-33.0); Mean Corpuscular Volume 86.9 fL (80.0-98.0); Mean Platelet Volume 8.6 fL (9.4-12.3); Monocytes Absolute Auto 0.6 X10*3/uL (0.1-1.2); Monocytes Percent Auto 7.2 % (2-11); Neutrophils Percent Auto 61.8 % (45-73); Platelet Count 316 X10*3/uL (160-400); Red Blood Count 3.96 X10*6/uL (4.20-5.50); Red Cell Distribution Width 24.7 % (11.0-16.0); White Blood Count 8.1 X10*3/uL (4.8-10.8)
[2024-12-21 15:58] LABS: Alanine Aminotransferase 40 U/L (0-31); Albumin Level 3.5 g/dL (3.5-5.0); Alkaline Phosphatase 88 U/L (39-117); Anion Gap 10 (12-20); Aspartate Amino Transferase 35 U/L (5-31); Bilirubin Total 0.2 mg/dL (0.0-1.0); Blood Urea Nitrogen 20 mg/dL (9-16); Carbon Dioxide 27 mmol/L (22-29); Chloride 107 mmol/L (96-108); Creatinine Clr Calc Pharmacy 41.7; Estimated Glomerular Filt Rate > 60; Glucose Random 101 mg/dL (60-115); Lipase 37 U/L (8-78); Magnesium 1.7 mg/dL (1.6-2.6); Potassium 3.8 mmol/L (3.3-5.1); Sodium 140 mmol/L (135-145)
[2024-12-21 15:59] LABS: Salicylate < 5.0 mg/dL (15-30)
--- NOTE | 2024-12-21 19:24 | PC.NURSE ---
report given to mari jeff at [facility], awaiting transport.
[2024-12-21 19:35] VITALS: BP 126/97; PULSE 69; RESP 20; TEMP 36.6; O2SAT 97
[2024-12-21 20:00] VITALS: BP 126/97; PULSE 69; RESP 20; TEMP 36.6; O2SAT 97
[2024-12-21 20:14] VITALS: BP 126/97; PULSE 69; RESP 20; TEMP 36.6; O2SAT 97
[2024-12-21 20:15] VITALS: BP 126/97; PULSE 69; RESP 20; TEMP 36.6; O2SAT 97
== END 2024-12-21 20:19 ==
PROVIDERS: Emergency Provider Emergency Medicine Emergency Medical Services
DX: S72.101A Unspecified trochanteric fracture of right femur, initial encounter for closed fracture (principal); S32.511A Fracture of superior rim of right pubis, initial encounter for closed fracture; W19.XXXA Unspecified fall, initial encounter; Y93.9 Activity, unspecified; Y92.9 Unspecified place or not applicable; Y99.9 Unspecified external cause status; R91.1 Solitary pulmonary nodule
CPT/HCPCS: 36415; 71045; 73502; 80053; 80179; 83690; 83735; 85025; 85730; 86850; 86900; 86901; 99284

== ENCOUNTER → 2024-12-21 15:13 | Outpatient (BNV) | payer MEDICARE, MEDICAID, SELFPAY | PROVIDERS: Emergency Provider Emergency Medicine Emergency Medical Services; Visit Provider Radiology Diagnostic Radiology | DX: S72.111A Displaced fracture of greater trochanter of right femur, initial encounter for closed fracture (principal); R91.1 Solitary pulmonary nodule | CPT/HCPCS: 73502 ==

== ENCOUNTER 2025-01-18 13:17 | Outpatient (REF) | payer MEDICARE, MEDICAID, SELFPAY ==
--- NOTE | ~2025-01-18 | CT_ITS ---
EXAMINATION: CT CHEST WITH IV CONTRAST INDICATION: SOLITARY PULMONARY NODULE COMPARISON: Comparison is made with the prior examination dated 08/28/2023. TECHNIQUE: Helical CT scan of the chest was performed following administration of intravenous contrast. Coronal and sagittal reformatted images were generated and reviewed. This CT exam was performed with one or more of the following dose reduction techniques: automated exposure control, adjustment of the mA and/or kV according to patient size, use of iterative reconstruction technique. DLP: 92 mGy-cm CHEST: THYROID: There is a 1.1 cm right thyroid nodule. LUNGS: There is a 3.4 x 2.6 x 2.9 cm lobulated mass in the right middle lobe. There is mild dependent atelectasis in the lower lobes. MEDIASTINUM: There is no mediastinal lymphadenopathy. JAS: There is no hilar lymphadenopathy. CARDIOVASCULATURE: The heart is normal in size. There is a small pericardial effusion measuring up to 6 mm in thickness. The thoracic aorta is normal in caliber. DEGREE OF CORONARY CALCIFICATION: severe PLEURA: There is no pleural effusion. No pneumothorax. MAIN AIRWAYS: The mainstem bronchi and proximal branches are patent. AXILLA: There is no axillary lymphadenopathy. BONES AND SOFT TISSUES: There is degenerative disc disease of the spine. UPPER ABDOMEN: The visualized portions of the liver, spleen, and right adrenal gland are unremarkable. Again seen is a 2.0 cm left adrenal mass, unchanged since 11/25/2021. There is a small hiatal hernia. CT/CT chest w IV con IMPRESSION: 1. 3.4 x 2.6 x 2.9 cm lobulated right middle lobe mass, highly suspicious for neoplasm. Further evaluation with PET/CT or tissue sampling is recommended. These findings were discussed with Carlyn in the office of Mleinda Lindo NP on 01/18/2025 at 2:12 PM. 2. Stable 2.0 cm left adrenal mass. Electronically signed by: Allan Chawla MD 01/18/2025 02:14 PM EDT
--- OUTSIDE RECORDS SUMMARY | 2025-01-18 13:54 | XMS_ITS | Patient Health Record ---
Author Organization [facility] meme Perdomo Address [address] [facility] [place] [address] Care Team Providers Care Faculty Instructor Name Role Phone Hunter Cortes MD Primary Care Provider Unavailab Moses Driver Unavailable [phone] Allergies Allergen (clinical drug ingredient) Drug/Non Drug Allergy documented on EMR Reaction Allergy Type Onset Date Status Penicillin anaphylaxis Drug Allergy Acti ve morphine Morphine anaphylaxis Drug Allergy Activ e Reason For Referral No Information Medications Medication SIG (Take, Route, Frequency, Duration) Notes Start Date End Date Status Glucophage Active zzzExtra Depth Orthopedic Shoes (1 Pair) with Customized Heat Molded Multidensity Innersoles (3 Pair) . . . Dx: IDDM (E10.9), Hammertoe Foot Deformity (M20.41,M20.42), Preulcerative Skin Lesion(s) (L85.1); Duration: . 08/07/2015 Active Lisinopril Active HumaLOG Active Levemir Active Atorvastatin Calcium Active Metformin & Diet Manage Prod Active Omeprazole Active Furosemide Active BuPROPion HBr Active Letrozole Active Eucerin . as directed External ly Apply Twice a day to Feet; Duration: 30 days 05/01/2015 Active Problems Problem Type SNOMED Code ICD Code Onset Dates Problem Status W/U Status Risk Notes Problem Tinea unguium (530323031) Tinea unguium (B35.1) Active confirmed Problem Type 1 diabetes mellitus without complications (E10.9) Active confirmed Plan Of Treatment Pending Test Test Name Order Date Hemoglobin A1c 05/01/2015 [id number] NAIL, 6 OR MORE 08/07/2015 [id number] NAIL, 6 OR MORE 05/01/2015 [id number] NAIL, 6 OR MORE 11/20/2015 [id number] Plate 11/20/2015 [id number] Plate 05/01/2015 [id number] Plate 08/07/2015 [id number] Plate Each Additional Insurance Providers Payer Name Payer Address Payer Phone Subscriber Number Group Number Insured Name Patient Relationship to Insured Coverage Start Date Coverage End Date Medicare National [employer] [address] [place] [address] [id number] Vira Jules Self - patient is the insured [employer] [address] [place] [address] [phone] [id number] Vira Jules Self - patient is the insured Medical (General) History Medical History History ICD Code Back,Hip,and Knee pain Cholesterol Cancer Depression Diabetic Macular degeneration Hypertension Hiatal hernia Measles Mumps Chicken pox Surgical History Surgery Date(Month/Year) thyroidectomy 07/2008 gall bladder breast biopsy 05/2009
--- OUTSIDE RECORDS SUMMARY | 2025-01-18 13:54 | XMS_ITS | Data Portability ---
Author Organization [facility], Main Office Address [address] [place] [address] Care Team Providers Care Beater Lead Name Role Phone RITA BRADFORD - 3RD [...] Organization Details Recorded Time Acute kidney injury 12128408 Active 2024 Melinda Lindo NP [address] [facility], [address], [place], [address], [facility] 5 14:11:24 Gout 98962245 Active 2024 Melinda Lindo NP [address] [facility], [address], [place], [address], [facility] 5 14:11:31 Hypertensive disorder 17065104 Active 2024 Melinda Lindo NP [address] [facility], [address], [place], [address], [facility] 5 14:11:38 Hyperlipidemia 55578559 Active 2024 Melinda Lindo NP [address] [facility], [address], [place], [address], [facility] 5 14:11:45 Type 2 diabetes mellitus 67239598 Active 2024 Melinda Lindo NP [address] [facility], [address], [place], [address], [facility] 5 14:11:53 Gastroesophage al reflux disease 844733553 Active 2024 Melinda Lindo NP [address], [address], [place], [address], [facility] 5 14:11:59 Hypothyroidism 40897072 Active 2024 Melinda Lindo NP [address], [address], [place], [address], [facility] 5 14:12:13 Thrombocytosis 6153380 Active 2024 Melinda Lindo NP [address] [facility], [address], [place], [address], [facility] 5 14:12:43 Urinary tract infectious disease 18868641 Active 2024 Melinda Lindo NP [address] [facility], [address], [place], [address], [facility] 5 14:12:51 Dementia 02418504 Active 2024 Melinda Lindo NP [address] [facility], [address], [place], [address], [facility] 5 14:12:57 Mixed anxiety and depressive disorder 169739785 Active 2024 Melinda Lindo NP [address] [facility], [address], [place], [address], [facility] 5 14:25:13 Problem Notes None recorded. Medical Equipment None Reported. Allergies Allergen ID Allergen Name Allergen Category Reaction Reaction Severity Criticality Documentation Date Start Date Code Code System Note Provider Name and Address Organization Details Recorded Time 63173 bee pollen environme nt,medica tion other Not available unabletoasse 09/01/2024 99321 7 RxNorm Melinda Lindo NP [address] [facility], [address], [place], [address], [facility] 5 14:14:30 13747 morphine medicatio n other Not available unabletoasse 09/01/2024 7052 RxNorm unkno wn Melinda Lindo NP [address] [facility], [facility] [address], [place], [address], [facility] 5 14:14:45 24550 Product containin g penicilli n (product) medicatio n other Not available unabletoasse 09/01/2024 47604 8001 SNOMED unkno wn Melinda Lindo NP [address] [facility], [address], [place], [address], [facility] 5 14:15:12 Medications Name Sig Start Date Stop Date Status Note LastModified by Organization Details LastModified Time tramadol 50 mg tablet 1 tab po tid scheduled , and 1 tab po q 6 hr prn 025 active Not Available Not Available Not Avai lable Ativan 0.5 mg tablet 0.5 mg po q 12 hours prn anxiety 025 active Not Available Not Available Not Avai lable Vitals Date Recorded Body weight Heart rate Respiratory rate Body temperature Oxygen saturation Oxygen saturation in Arterial blood by Pulse oximetry Systolic blood pressure Diastolic blood pressure Provider Name and Address Organization Details Last Updated DateTime 5 69875.6 g 70 /min 18 /min 97.9 [degF] 95 % 95 % 138 mm[Hg] 78 mm[Hg] Melinda Lindo NP [address] [facility] [address], [place], [address], [facility] 5 11:45:13 Date Recorded Body weight Heart rate Respiratory rate Body temperature Oxygen saturation Oxygen saturation in Arterial blood by Pulse oximetry Systolic blood pressure Diastolic blood pressure Provider Name and Address Organization Details Last Updated DateTime 5 43139.6 g 86 /min 16 /min 97.1 [degF] 96 % 96 % 101 mm[Hg] 57 mm[Hg] Melinda Lindo NP [address] [facility], [address], [place], [address], [facility] 5 13:11:31 Date Recorded Body weight Heart rate Respiratory rate Body temperature Oxygen saturation Oxygen saturation in Arterial blood by Pulse oximetry Systolic blood pressure Diastolic blood pressure Provider Name and Address Organization Details Last Updated DateTime 5 52493.1 9 g 84 /min 18 /min 97.4 [degF] 96 % 96 % 112 mm[Hg] 64 mm[Hg] Melinda Lindo NP [address] [facility], [address], [place], [address], [facility] 5 09:11:41 Date Recorded Body weight Heart rate Respiratory rate Body temperature Oxygen saturation Oxygen saturation in Arterial blood by Pulse oximetry Systolic blood pressure Diastolic blood pressure Provider Name and Address Organization Details Last Updated DateTime 5 30852.1 9 g 84 /min 18 /min 97.4 [degF] 96 % 96 % 112 mm[Hg] 64 mm[Hg] Melinda Lindo NP [address] [facility], [facility] [address], [place], [address], [facility] 5 18:34:16 Date Recorded Body weight Heart rate Respiratory rate Body temperature Oxygen saturation Oxygen saturation in Arterial blood by Pulse oximetry Systolic blood pressure Diastolic blood pressure Provider Name and Address Organization Details Last Updated DateTime 5 44222.1 9 g 84 /min 18 /min 97.4 [degF] 96 % 96 % 112 mm[Hg] 64 mm[Hg] Melinda Lindo NP [address] [facility], [facility] [address], [place], [address], [facility] 5 13:08:45 Social History Question Answer Notes LastModified by Organizat ion Details LastModified Time Tobacco Smoking Status Former Smoker Melinda Lindo NP [address] [facility], [facility] [address], [place], [address], [facility] 09/01/2024 14:51:53 Do You Have An Advance Directive? No Full Code [email or web address] Information not available 09/05/2024 What Is Your Code Status? Full Code [...] Unclear How Long Information not available 09/01/2024 Sex: Female Functional Status Question Answer Note LastModified by Organizat ion Details LastModified Time Do you use any illicit or recreational drugs? No Information not available 09/01/2024 Do you or have you ever used any other forms of tobacco or nicotine? No Information not available 09/01/2024 What is your level of alcohol consumption? None Information not available 09/01/2024 Mental Status None recorded. Family History Nothing Reported Notes:Father and mother of old age. father at 102 and mother at 104. reports she had a son and daughter daughter young and doesn't mention how Medical History No medical history recorded. Gynecological HistoryNo gynecological history recorded. Obstetrics History GPAL:G 0 P 0 0 0 0 Immunizations Vaccine Type Date Status Note Provider Nam e and Address Organization Details Recorded Time Tdap 07/25/2023 completed [facility] 09/01/2024 15:21:34 Tdap 08/30/[address] [facility] 09/01/2024 15:21:41 Past Encounters Encounter ID Performer Location Encounter Start Date Encounter Closed Date Diagnosis/Indication Diagnosis SNOMED-CT Code Diagnosis ICD10 Code Diagnosis Note [id number] Melinda Lindo NP [address] [address] 09/01/2024 13:45:30 09/02/2024 13:19:24 Urinary tract infectious disease 16655748 N39.0 pt had uti in hospresolv edmonitor for sequelae Dementia 62893719 F03.90 found to have cognitive decline in hospdeemed incompeten t by psychiatry while in hospital [facility] ip was arranged to Gisella Thomas, on aug 22.suppor tive care and directioni nvokedbims on 09/01/24mon itor Acute kidney injury 1466 9001 N17.9 AMAURY resolved in hospitalmo nitor for sequelae Thrombocytosis 0896184 D 75.839 thrombocyt osis noted in hospital and rec JAK2 testing outpt with ? myeloproli ferative disorder such as essential thrombocyt osis.hemat ology consult Hypothyroidism 54174363 E03.9 levothyrox ine changed to 100 mcg po qdtsh to be done in 4 weeksmonit or Type 2 vanessa betes mellitus 33957691 E11.9 felt controlled , while in hospital HAIC 6.8lantus reduced from 60 units to 12 units qhsiss continuedm onitor BS with meals and qhsdm dietadjust as needed Hyperlipidemia 01038539 E78.5 atorvastat in 10 mg qhsasa 81 mg po qdmonitor Gastroesop hageal reflux disease 359887025 K21.9 omeprazole 20 mg po bidmonitor Hypertensive disorder 38 258549 I10 amlodipine 10 mg po qd Gout 72917705 M10.9 hx ofcarrying dxmonitor Mixed anxi ety and depressive disorder 224816952 F41.8 ? MDDbupropr ion 200 mg bidfluoxet ine 40 mg po qdpsych consult prn [id number] Rommel Mendez MD [address] [address] 09/05/2024 09:25:38 09/06/2024 15:28:00 Metabolic encephalopathy 00955127 G93.41 altered mental status on presentati on to hospitalfe lt due to multiple causes including underlying cognitive impairment and infection with episode of suicidal ideationev aluated at hospital and deemed incompeten t with guardiansh ip pursued now in placeexten ded conversati on with patient explaining above Urinary tr act infectious disease 53611299 N30.00 monitor for recurrent infection Dementia 72833585 F03.90 see above with question underlying dementiawe llbutrin 200 mg bidfluoxet ine 40 mg qd[address] ship now in place Acute kidney injury 1466 9001 N17.8 appears due to N/V/Dimpro jessika with fluidsmoni tor renal function Thrombocytosis 6386655 D 75.838 Noted thrombocyt osis will f/u with heme out patientmon itor cbc Hypothyroidism 51498698 E03.8 tsh suppressed with synthroid dose lowered now onsynthroi d 100 mcg qdrecheck in 1 month Type 2 vanessa betes mellitus 56746548 E11.9 monitor blood glucose with lantus dose titrated Hyperlipidemia 82290950 E78.2 lipitor 10 mg qdcontinue dlipid panel if patient transition s to LTC Gastroesop hageal reflux disease 246119307 K21.9 omeprazole 20 mg po bidmonitor for sx relief Hypertensive disorder 38 260682 I10 norvasc 10 mg qdmonitor bp and need to adjust Mixed anxi ety and depressive disorder 059854341 F41.8 see abovewellb utrin 200 mg bidfluoxet ine 40 mg qdcontinue dmonitor moodpsych to eval at facility Asthenia 10311181 R53.1 PT OT Eval and treatmonit or fall risk and need for increased support in community vs need to transition to LTC [id number] Melinda Lindo NP [facility] [address] 09/15/2024 13:01:15 09/16/2024 13:47:04 Metabolic encephalopathy 95852322 G93.41 resolving with underlying dementiaal tered mental status on presentati on to hospitalfe lt due to multiple causes including underlying cognitive impairment and infection with episode of suicidal ideationev aluated at hospital and deemed incompeten t with guardiansh ip pursued now in place Dementia 78160858 F03.90 see above with question underlying dementiaco ntwellbutr in 200 mg bidfluoxet ine 40 mg qdguardian ship now in placeinvok ed Acute kidney injury 1466 9001 N17.8 appears due to dehydratio n which resolved in hospitalim proved with fluidsmoni tor renal function Thrombocytosis 0799006 D 75.838 thrombocyt osis notedhad hematology appt on 09/15 and rec: aspirin 81 mg po qd , will agreef/u with heme out patient in 3 monthsmoni tor cbc Asthenia 18386010 R53.1 PT OT Eval and treatmonit or fall risk and need for increased support in community vs need to transition to LTC Mixed anxi ety and depressive disorder 447990439 F41.8 see abovewellb utrin 200 mg bidfluoxet ine 40 mg qdcontinue dmonitor moodpsych to eval at facilitymo nitor and supportive redirectio n for exit seeking [id number] Melinda Lindo NP [address] [address] 09/23/2024 11:59:10 09/27/2024 09:08:50 Thrombocytosis 5333047 D75.838 thrombocyt osislast hematology appt on 09/15 rec:aspiri n 81 mg po qdf/u with heme out patient in 3 months approx 12/13monito r cbc prn Dementia 14444839 F03.90 underlying dementiaco ntwellbutr in 200 mg bidfluoxet ine 40 mg qdguardian ship now in placeinvok edsupporti ve care for exit seeking behaviors Metabolic encephalopathy 54363662 G93.41 resolving with underlying dementia and confusion at baseline likelyalte red mental status on presentati on to hospitalfe lt due to multiple causes including underlying cognitive impairment and infection with episode of suicidal ideationev aluated at hospital and deemed incompeten t with guardiansh ip pursued now in place Asthenia 03130906 R53.1 PT OT Eval and treatmonit or fall risk and need for increased support in community vs need to transition to LTC Mixed anxi ety and depressive disorder 575756597 F41.8 see abovewellb utrin 200 mg bidfluoxet ine 40 mg qdcontinue dmonitor [facility] and supportive redirectio n for exit seeking [id number] Melinda Lindo NP [address] [address] 09/29/2024 09:09:06 10/03/2024 13:19:49 Dementia 49826784 F03.90 underlying dementiaco ntwellbutr in 200 mg bidfluoxet ine 40 mg qdguardian ship now in placeinvok ed with poor safety awarenesss upportive care for exit seeking behaviors Mixed anxi ety and depressive disorder 915468587 F41.8 see abovewellb utrin 200 mg bidfluoxet ine 40 mg qdcontinue dmonitor moodpsych to followmoni tor and supportive redirectio n for exit seeking Thrombocytosis 0735248 D 75.838 thrombocyt osislast hematology appt on 09/15 rec:contas pirin 81 mg po qdf/u with heme out patient in 3 months approx 12/13monito r cbc prn Asthenia 51916321 R53.1 PT OT Eval and treatsuppo rtive caremonito r fall risk and need for increased support in community vs need to transition to LTC, likely here for LTC Recurrent falls 79582662 2 R29.6 PT OT Eval and treatsuppo rtive carewith 2 falls unwitnesse d without injuriesmo nitor fall risk and need for increased support in community vs need to transition to LTC, likely here for LTC3/13 will start cbc and bmp and ua to ro infection [id number] Melinda Lindo NP [facility] [address] 10/03/2024 11:30:17 10/05/2024 10:19:22 Dementia 50548628 F03.90 underlying dementiaco ntwellbutr in 200 mg bidfluoxet ine 40 mg qdguardian ship now in placeinvok ed with poor safety awarenesss upportive care for exit seeking behaviors Thrombocytosis 3219889 D 75.838 thrombocyt osisconton 09/15 pt had hem/onc appt and started on asashe went for fu on 10/03 todaywas planned for f/u with heme out patient in 3 months approx 12/13, unsure if this is still neededwill cont aspirin 81 mg po qdnsg to reach out for plan/progr ess note/ and if they needed labsmonito r cbc prn Asthenia 51251203 R53.1 PT OT Eval and treatsuppo rtive caremonito r fall risk and need for increased support in community vs need to transition to LTC, likely here for LTC [id number] Melinda Lindo NP [facility] [address] 10/05/2024 14:31:26 10/07/2024 14:32:29 Dementia 03530829 F03.90 underlying dementiaco ntwellbutr in 200 mg bidfluoxet ine 40 mg qdguardian ship now in placeinvok ed with poor safety awarenesss upportive care for exit seeking behaviorsn ot felt safe to be in community alone Asthenia 62016284 R53.1 seems to be getting weakerPT OT Eval and treatsuppo rtive caremonito r fall risk and need for increased support in community vs need to transition to LTC, likely here for LTC Recurrent falls 54120443 2 R29.6 PT OT Eval and treatsuppo rtive careunwitn essed with with skin tearsmonit or fall risk and need for increased support in community vs need to transition to LTC, likely here for LTCmonitor labs checked on 09/30 will rec to repeat urine(was not done) Tear of skin 893028749 T 14.8XXS pt with 2 left skin tearsns wash, pat dry, let steri strips fall off on there own, change dressing q 3 daysmonito r [id number] [facility] [address] 10/10/2024 10:33:02 10/12/2024 15:10:32 Dementia 36468652 F03.90 underlying dementia now seems to be declining with increased behvaviors contwellbu dwayne 200 mg bidfluoxet ine 40 mg qdguardian ship now in placeinvok ed with poor safety awarenesss upportive care for exit seeking behaviorsn ot felt safe to be in community alone 10/10 psych consultsta rt trazodone 25 mg po q 8hours prn agitation x 14 days Asthenia 79483874 R53.1 seems to be getting weakerPT OT Eval and treatsuppo rtive caremonito r fall risk and need for increased support in community vs need to transition to LTC, likely here for LTC Recurrent falls 32895059 2 R29.6 having increased falls and weakness latelyPT OT Eval and treatsuppo rtive caremonito r fall risk and need for increased support in community vs need to transition to LTC, likely here for LTCmonitor labs recently stable Urinary tr act infectious disease 54198421 N39.0 due to increased behaviors and contaminat ed urine x2 and hx of utis with new behaviors and decline09/18 4 start cipro 500 mg po qd x 3 daysmonito r for sequelae Mixed anxi ety and depressive disorder 198613017 F41.8 see abovewellb utrin 200 mg bidfluoxet ine 40 mg qd10/10 start trazodone 25 mg po q 8 hours prn x 14 dayscontin uedmonitor moodpsych to followmoni tor and supportive redirectio n for exit seeking [id number] Melinda Lindo NP [address] [address] 10/12/2024 08:00:03 10/17/2024 08:16:27 Dementia 29335057 F03.90 underlying dementia now seems to be declining with increased behvaviors contwellbu dwayne 200 mg bidfluoxet ine 40 mg qdguardian ship in [facility] ed with poor safety awarenesss upportive care for exit seeking behaviorsn ot felt safe to be in community alonepsych consulttra zodone 25 mg po q 8hours prn agitation x 14 days per psych Mixed anxi ety and depressive disorder 200676131 F41.8 see abovewellb utrin 200 mg bidfluoxet ine 40 mg qdon 10/10 started on trazodone 25 mg po q 8 hours prn x 14 dayscontin uedmonitor moodpsych to followmoni tor and supportive redirectio n for exit seeking Urinary tr act infectious disease 75663700 N39.0 due to increased behaviors and contaminat ed urine x2 and hx of utis with new behaviors and declineon 10/10 started cipro 500 mg po qd x 3 daysmonito r for sequelae Asthenia 44867175 R53.1 seems to be getting weakerPT OT Eval and treatsuppo rtive caremonito r fall risk and need for increased support in community vs need to transition to LTC, likely here for LTC Recurrent falls 95800227 2 R29.6 having increased falls and weakness lately and fall last evening with co of pain to ribsPT OT Eval and treatsuppo rtive caremonito r fall risk and need for increased support in community vs need to transition to LTC, likely here for LTCmonitor labs recently stable Rib pain 821973064 R07.8 1 co right rib pain and slight abrasion sp fall on xr ay ordered last night, pendingdre ssing on right rib area, change daily for abrasionty lenol 1000 mg po tid sched, tyl prn on hold x 14 dayslidoca ine patch 4% to right rib and back qd add tramadol 50 mg po q 6 hours prn painmonito r [id number] Melinda Lindo NP [address] [place] [address] 10/13/2024 14:48:17 10/17/2024 11:18:33 Rib pain 115175464 R07.81 co right rib pain and slight [...] got any prn doses yetmonitor Recurrent falls 72326849 2 R29.6 having increased falls and weakness lately and fall last evening with co of pain to ribsPT OT Eval and treatsuppo rtive caremonito r fall risk and need for increased support in community vs need to transition to LTC, likely here for LTCmonitor labs recently stable Dementia 60174695 F03.90 underlying dementia now seems to be declining with increased behvaviors contwellbu dwayne 200 mg bidfluoxet ine 40 mg qdguardian ship in [facility] ed with poor safety awarenesss upportive care for exit seeking behaviorsn ot felt safe to be in community alonepsych consulttra zodone 25 mg po q 8hours prn agitation x 14 days per psych Mixed anxi ety and depressive disorder 918765401 F41.8 see abovewellb utrin 200 mg bidfluoxet ine 40 mg qdtrazodon e 25 mg po q 8 hours prn x 14 dayscontin uedmonitor moodpsych to followmoni tor and supportive redirectio n for exit seeking Urinary tr act infectious disease 34768734 N39.0 due to increased behaviors and contaminat ed urine x2 and hx of utis with new behaviors and declinecon t cipro 500 mg po qd x 3 daysmonito r for sequelae Asthenia 84907608 R53.1 seems to be getting weakerPT OT Eval and treatsuppo rtive caremonito r fall risk and need for increased support in community vs need to transition to LTC, likely here for LTC [id number] Melinda Lindo NP [facility] [address] [facility] [place] [address] 10/19/2024 08:24:32 10/21/2024 14:42:11 Rib pain 163451548 R07.81 co right rib pain and slight abrasion sp fall on 10/11xray shows 9th and 10th right rib fractures noted from 10/12contty lenol 1000 mg po tid sched, tyl prn on hold x 14 days, to be prn on 10/26lidocai ne patch 4% to right rib and back qdtramadol 50 mg po q 6 hours prn painshe was on tramadol bid x 5 days now dc'd - question if this makes her hallucinat e?, will leave the prnmonitor Recurrent falls 02798086 2 R29.6 fall on 10/18 and sustained er visit with epistaxsis , workup otherwise unremarkab lePT OT Eval and treatsuppo rtive caremonito r fall risk and need for increased support in community vs need to transition to LTC, likely here for LTClabs recently stable, workup with urine unremarkab le, recently treated for uti with ciprosign on wall to remind pt to use call bellmove room closer to nursing station if possible with multiple falls latelymoni tor for sequelae Dementia 87171202 F03.90 underlying dementia now seems to be declining with increased behaviorsc ontwellbut rin 200 mg bidfluoxet ine 40 mg qdguardian ship [facility] with poor safety awarenesss upportive care for exit seeking behaviorsn ot felt safe to be in community alonepsych consulttra zodone 25 mg po q 8hours prn agitation x 14 days per psych reeval 10/24mon Asthenia 35059084 R53.1 seems to be getting weakerPT OT Eval and treatsuppo rtive caremonito r fall risk and need for increased support in community vs need to transition to LTC, likely here for LTC Bleeding from nose 56025 600 R04.0 sp fall on 10/18, resolved in Er, no further bleedingct brain and skull and ct spine unremarkab leno med changes and remains on asa and hydroxyure a for high platelet countno picking or irritants to nasal passagepin ch and hold pressure if rebleeds [id number] [facility] [place] [place] [address] [place] [address] 10/21/2024 14:42:16 10/24/2024 08:44:45 Recurrent falls 628101482 R29.6 fall on 10/18 and sustained er visit with epistaxsis , workup otherwise unremarkab lePT OT Eval and treatsuppo rtive caremonito r fall risk and need for increased support in community vs need to transition to LTC, likely here for LTClabs recently stable, workup with urine unremarkab le, recently treated for uti with ciprosign on wall to remind pt to use call bellmove room closer to nursing station if possible with multiple falls latelymoni tor for sequelae Bleeding from nose 85089 6005 R04.0 resolvedbr uising to left eye noted today from fallsp fall on 10/18, resolved in Er, no further bleeding sinceneuro s intact at baselinect brain and skull and ct spine unremarkab leno med changes and remains on asa and hydroxyure a for high platelet countno picking or irritants to nasal passagepin ch and hold pressure if rebleeds Rib pain 779933206 R07.8 1 co right rib pain and slight abrasion sp fall on 10/11xray shows 9th and 10th right rib fractures noted from 10/12contty lenol 1000 mg po tid sched, tyl prn on hold x 14 days, to be prn on 10/26lidocai ne patch 4% to right rib and back qdtramadol 50 mg po q 6 hours prn painshe was on tramadol bid x 5 days now dc'd - question if this makes her hallucinat e?, will leave the prnmonitor Dementia 97351579 F03.90 underlying dementia now seems to be declining with increased behaviorso verall at baseline and neuros intact at baseline since herecontwe llbutrin 200 mg bidfluoxet ine 40 [address] [facility]d[address] [address] [facility] with poor safety awarenesss upportive care for exit seeking behaviorsn ot felt safe to be in community alonepsych consulttra zodone 25 mg po q 8hours prn agitation x 14 days per psych reeval 4/7mon Asthenia [id number] R53.1 seems to be getting weakerPT OT Eval and treatsuppo rtive caremonito r fall risk and need for increased support in community vs need to transition to LTC, likely here for LTC [id number] Melinda Lindo, STEVE [facility] [address] [address] 10/24/2024 11:44:47 10/31/2024 11:08:31 Dementia [id number] F03.90 underlying dementia now seems to be declining with increased behaviorso verall at baseline and neuros intact at baseline since herecontwe llbutrin 200 mg bidfluoxet ine 40 mg qdguardian ship in placeinvok ed with poor safety awarenesss upportive care for exit seeking behaviorsn ot felt safe to be in community alonepsych consulttra zodone 25 mg po q 8hours prn agitation x 14 days per psych reeval Asthenia [id number] R53.1 seems to be getting weakerPT OT Eval and treatsuppo rtive caremonito r fall risk and need for increased support in community vs need to transition to LTC, likely here for LTC [id number] Melinda Lindo NP [facility] [address] 11/03/2024 11:27:26 11/07/2024 09:59:40 Dementia 01172229 F03.90 underlying dementia now seems to be declining with increased behaviors at times, seems to be more settled in last weekoveral l at baseline and neuros intact at baseline since herecontwe llbutrin 200 mg bidfluoxet ine 40 mg qdguardian ship in placeinvok ed with poor safety awarenesss upportive care for exit seeking behaviorsn ot felt safe to be in community alonepsych consultcon ttrazodone 25 mg po q 8hours prn agitation x 14 days per psych reeval Asthenia [id number] R53.1 seems to be getting weakerPT OT Eval and treatsuppo rtive caremonito r fall risk and need for increased support in community vs need to transition to LTC, likely here for LTC Rib pain [id number] R07.8 1 seems to be resolving and has prn meds, will cont as below for nowright rib pain and slight abrasion sp fall on 10/11xray 9th and 10th right rib fractures noted from 10/12contty lenol 650 mg prn nte 3grams/24 hrslidocai ne patch 4% to right rib and back qdtramadol 50 mg po q 6 hours prn painmonito r Thrombocytosis 3856419 D 75.838 thrombocyt osis improving with below regimencon tfu on 11/02 with plan to cont medsf/u with heme outpatient in 2 monthswill cont aspirin 81 mg po qdurea 500 mg po qdnsg to reach out for plan/progr ess note/ and if they needed labsmonito r cbc prn [id number] Rommel Mendez MD [facility] [address] 11/09/2024 12:21:11 11/11/2024 12:50:10 Thrombocytosis 1631847 D75.838 Noted thrombocyt osis from hospitalla bs not drawnorder ed for tomorrow amdiscusse d with nursing Hypothyroidism 23770467 E03.8 now wnr tsh=2.6 Vascular d ementia with behavioral disturbance [id number] 68983 F01.B18 baseline dementiagu ardianship in placeepiso dic agitationw ill most likely require psych medication adjustment spsych to eval then coordinate with guardian to adjust meds Recurrent falls 53791532 2 R29.6 patient with baseline dementia with behavior of putting self on floorcan transfer to wheelchair independen t at baseline [id number] RICHIE FLORES NP [facility] [address] 11/10/2024 12:27:41 11/16/2024 12:34:39 Vascular dementia with behavioral disturbance [id number] 60655 F01.B18 No change in POC - continue prozac and wellbutrin .baseline dementiagu ardianship in placeepiso dic agitationw ill most likely require psych medication adjustment spsych to eval then coordinate with guardian to adjust meds Thrombocytosis 0913946 D 75.838 Noted [facility] - improvingM onitor, follow up with Hematology , cont. ASA and Urea. Hypothyroidism 60874608 E03.8 now wnr tsh=2.6Con tinue levothyrox ine 100 mcg qd Recurrent falls 84461164 2 R29.6 patient with baseline dementia with behavior of putting self on floorcan transfer to wheelchair independen t at baselineNo longer working with rehab - eval prn Hypertensive disorder 38 738791 I10 VSS, monitorCon tinue norvasc 5 mg qd, adjust as needed. Type 2 vanessa betes mellitus 39444001 E11.9 Continue basaglar 12 U qd and lispro SSIMonitor BS, adjust prn [id number] Melinda Lindo NP [facility] [address] [address] 11/17/2024 09:34:09 11/21/2024 08:57:52 Recurrent falls 019349408 R29.6 fall 11/17/24 with increased fall recently with weakness in general, no injuriesPT OT Eval and treatsuppo rtive caremonito r fall risk and need for increased support in community vs need to transition to LTC, likely here for LTClabs recently stable, workup with urine unremarkab lesign on wall to remind pt to use call bellmove room closer to nursing station if possible with multiple falls latelymoni tor for sequelae [id number] Melinda Lindo NP [facility] [address] [address] 11/18/2024 14:26:59 11/22/2024 16:08:28 Acute COVID-19 [id number] U07.1 with covid positive test on 11/18 asymptomat icisolatio n per facility protocolvs q shiftzofra n, robitussin prnencoura ge po fluidsmoni tor [id number] Melinda Lindo NP [facility] [address] [address] 11/28/2024 13:52:13 11/29/2024 14:14:35 Acute COVID-19 9831628224 U07.1 resolvedwi th covid positive test on 11/18 asymptomat icmonitor for sequelae Recurrent falls 06130719 2 R29.6 increased falls lately with weakness in general, no injuries latelyPT OT Eval and treat prnsupport lianet caremonito r fall risk and need for increased support in community vs need to transition to LTC, likely here for LTClabs stable, workup with urine unremarkab lesign on wall to remind pt to use call bellmove room closer to nursing station if possible with multiple falls latelymoni tor for sequelae Vascular d ementia with behavioral disturbance [id number] 57971 F01.B18 continuepr ozac and wellbutrin .baseline dementiagu ardianship in placeepiso dic agitationw ill most likely require psych medication adjustment spsych to eval then coordinate with guardian to adjust meds Thrombocytosis 7566553 D 75.838 Noted thrombocyt osis from hospital[facility] ts 378 - improvingc onturea and aspirinMon itorfollow up with Hematology Hypothyroidism 79037966 E03.8 now wnr tsh=2.6Con tinuelevot hyroxine 100 mcg qd Hypertensive disorder 38 669393 I10 stableCont inuenorvas c 5 mg qd, adjust as needed. Type 2 vanessa betes mellitus 56125810 E11.9 stableCont inue basaglar 12 U qd and lispro SSIMonitor BS, adjust prn Dementia 75924681 F03.90 underlying dementia now seems to be decliningo verall at baseline and neuros intact at baseline since herecontwe llbutrin 200 mg bidfluoxet ine 40 mg qdguardian ship in [facility] ed with poor safety awarenesss upportive care for exit seeking behaviorsn ot felt safe to be in community alonepsych consultcon deliverer pharmacy remeron if weight loss and appetite remain Asthenia 80560358 R53.1 seems to be getting weakerPT OT Eval and treat prnsupport lianet caremonito r fall risk and need for increased support in community vs need to transition to LTC, likely here for LTC Mixed anxi ety and depressive disorder 697535728 F41.8 see abovewellb utrin 200 mg bidfluoxet ine 40 mg qdmonitor moodpsych to followmoni tor and supportive redirectio n for exit seeking Adult fail ure to thrive syndrome 067985899 R62.7 weight loss since admit herereweig ht todaydieti laci to follow and add supplement sconsider remeron if continues to lose weight [id number] Melinda Lindo NP [facility] [address] [address] 12/02/2024 14:21:37 12/05/2024 16:16:02 Vascular dementia with behavioral disturbance 5128191726 23577 F01.B18 continuepr ozac and wellbutrin .baseline dementiagu ardianship in placeepiso dic agitationw ill most likely require psych medication adjustment psych eval rec ekg and then starting olanzapine 2.5 mg po qd will agree and start. ekg done and within limits.dock coordinator rdinate with guardian to adjust meds Mixed anxi ety and depressive disorder 118012005 F41.8 12/02 psych eval rec ekg and then starting olanzapine 2.5 mg po qd will agree and start. ekg done and within limits.see abovewellb utrin 200 mg bidfluoxet ine 40 mg qdmonitor moodpsych to followmoni tor and supportive redirectio n for exit seeking [id number] Melinda Lindo NP [facility] [address] [address] 12/08/2024 14:08:36 12/14/2024 15:43:00 Mixed anxiety and depressive disorder 192180401 F41.8 12/08 start 0.5 mg po ativan q 12 hours prn anxiety x 14 dayscontol anzapine 2.5 mg po qd. ekg done and within limits.wel lbutrin 200 mg bidfluoxet ine 40 mg qdmonitor moodpsych to followmoni tor and supportive redirectio n for exit seeking [id number] RICHIE FLORES NP [facility] [address] [address] 12/13/2024 10:38:53 12/14/2024 17:53:56 Recurrent falls 231336122 R29.6 patient with baseline dementia with behavior of putting self on floorUnsur e most recent event 12/10 was a true fall or just sitting herself on the floor.Aler t, NAD, VSS, neuros and VS reported as stable.PT OT eval and tx. prn.Monito r [id number] Melinda Lindo NP [facility] [address] [address] 12/15/2024 11:44:39 12/20/2024 15:38:10 Recurrent falls 719591467 R29.6 patient with baseline dementia forgetful to call for helpAlert, NAD, VSS, neuros and VS reported as stable.sup portive carePT OT eval and tx. prn.Monito r per protocol Hematoma 815983485 T14.8 XXA pt with right parietal lobe hematomaic e prntyl prnneuros and vitals per protocolmo nitor for change in mental status or need to send to ER [id number] Melinda Lindo NP [facility] [address] [address] 12/21/2024 12:19:23 12/27/2024 10:12:38 Closed avulsion fracture of greater trochanter of femur 042788041 S72.111A pt with avulsion and right greater trochanter fracturept guardian notified per azra.gavino german apply lidocaine patch and give tramadol for pain nowsend to ER and call 911 [id number] Melinda Lindo NP [facility] [address] [address] 12/22/2024 09:11:00 12/27/2024 10:29:35 Closed avulsion fracture of greater trochanter of femur 637230757 S72.111A Recommenda tions from ER: It was determined that her fractures do not require operative repair. Avoid abduction and weight bearing as tolerated with walker and fu with orthopedic s. pt with avulsion and right femur greater trochanter fracture and right superior pubic ramus fxpt guardian notified per azra. 12/22 contsched tyl 1000 mg po tidlidocai ne patch to right hip12/22incr ease tramadol 50 mg po tid and q 6 prn for painpt ot eval and treat*fu with ortho recommende d in a few days Nodule of lung 813649296 R91.1 new 2.6 cm RUL pulmonary nodule noted on cxr CT scan chest without contrast for right pulmonary nodulecons ider pulmonolog y consult when CT scan is donemonito r for resp distress, sob, etc.... [id number] [facility] [address] [place] [address] 12/26/2024 16:10:33 12/28/2024 14:48:51 Mixed anxiety and depressive disorder 761000295 F41.8 paperwork filled out for [facility] ip as requestedc ontolanzap ine 2.5 mg po qdwellbutr in 200 mg bidfluoxet ine 40 mg qdekg within limits.mon itor moodpsych to [facility] tor and supportive redirectio n for exit seeking Dementia 57652386 F03.90 underlying dementia, now seems to be declining, andoverall at baseline and neuros intact at baseline since herecontwe llbutrin 200 mg bidfluoxet ine 40 mg qdguardian ship in placeinvok ed with poor safety awarenesss upportive care for exit seeking behaviorsn ot felt safe to be in community alone with hallucinat ion/delusi onspsych consult followingc onsider remeron if weight loss and appetite remain Closed avu lsion fracture of greater trochanter of femur 467381734 S72.111A Recommenda tions from ER: It was determined that her fractures do not require operative repair. Avoid abduction and weight bearing as tolerated with walker and fu with orthopedic s. pt with avulsion and right femur greater trochanter fracture and right superior pubic ramus fx.contsch ed tyl 1000 mg po tidlidocai ne patch to right hiptramado l 50 mg po tid and q 6 prn for painpt ot eval and treatfu with ortho recommende d in a few days [id number] [facility] [address] [place] [address] 12/30/2024 13:08:00 01/03/2025 12:58:51 Dementia 97757154 F03.90 underlying dementia, now seems to be declining, andoverall at baseline and neuros intact at baseline since herecontre cently started on olanzapine 2.5 mg qdwellbutr in 200 mg bidfluoxet ine 40 mg qdguardian ship in placeinvok ed with poor safety awarenesss upportive care for exit seeking behaviorsn ot felt safe to be in community alone with hallucinat ion/delusi onspsych consult followingc onsider remeron if weight loss and appetite remain decreased Mixed anxi ety and depressive disorder 141849796 F41.8 [facility] ontolanzap ine 2.5 mg po qdwellbutr in 200 mg bidfluoxet ine 40 mg qdekg within limits.mon itor moodpsych to followmoni tor and supportive redirectio n for exit seeking Closed avu lsion fracture of greater trochanter of femur 148887660 S72.111A Recommenda tions from ER: It was determined that her fractures do not require operative repair. Avoid abduction and weight bearing as tolerated with walker and fu with orthopedic s. comfortabl e on below regimen todaypt with avulsion and right femur greater trochanter fracture and right superior pubic ramus fx.contsch ed tyl 1000 mg po tidlidocai ne patch to right hiptramado l 50 mg po tid and q 6 prn for painpt ot eval and treatfu with ortho recommende d in a few days Tear of skin 477823208 S 81.812A pt with new left skin tear to LLEns wash, pat dry, dsd x 3 daysmonito r for s/s infection, bleeding Health Concerns Section Related Observation LastModified by Organization Detai ls LastModified Time None Recorded Concern Status LastModified by Organization Details LastModified Time None Recorded Advance Directives Directive N: full code Payers Insurance Date Sequence Insurance Name Policy Number Policy Mackenzie Covered Member ID Mackenzie Member ID Guarantor Name 12/21/2024 1 MEDICARE B-[place]: [facility] [employer] Vira Julse [id number] Vira Jules 12/21/2024 2 [place] [facility] Vira Jules [id number] Vira Jules Notes Date Note Type Note Provider Name and Address Organization Details Recorded Time 12/15/2024 text/html Vira is seen tod ay for an acute visit. Pt had an unwitnessed fall on 12/15 around 10 50 am per nsg. She was noted to have a small bump to her right parietal scalp. No bleeding or open area noted. No other injury, VSS, neuros stable. She reports she was getting up from bed and falls alot lately. On exam, She is in a wheelchair in NAD. Alert,in good spirits. No complaints, feels fine. She is reminded to use the ice. Melinda Lindo NP [address] [facility], [address], [place], [address], [facility] [employer] [facility] 12/15/2024 11:53:24 12/21/2024 text/html Vira is seen tod for an acute visit regarding right hip pain. Vira is lying in bed stating she her right hip hurts like hell . A right hip xray was ordered and resulted today on 12/21 with notable avulsion fracture right greater trochanter. On exam, she reports she had a fall, however last fall documented on 12/15 with small hematoma closed injury. Unclear if she fell again or injured herself after fall. She has a large ecchymotic area to the right hip dark purple in nature approx 14cm W X 7cmL. She reports tylenol helps a bit. Labs reviewed and in PE section of note, stable. She has some mild shortening of right leg noted on exam. Nursing to give her tramadol and lidocaine patch for pain now and send to ER. full code as she is invoked with guardian Melinda Lindo NP [address] [facility], [address], [place], [address], [facility] [employer] [facility] 12/21/2024 13:29:52 12/22/2024 text/html Vira is seen for an acute visit regarding her right greater trochanter and right superior pubic ramus fracture. She was seen at [facility] on 12/21 and returned to facility later that day. Recommendations from ER: It was determined that her fractures do not require operative repair. Avoid abduction and weight bearing as tolerated with walker and fu with orthopedics. No AC rec as she is Weight bearing as tolerated. Incidental finding on cxr noted a 2.6 cm right upper lobe nodule. Rec: CT scan of chest is recommended outpt. No new medications recommended in the ER. On exam, she reports she is okay but her hip hurts like a bit$$ . She remains with right hip ecchymosis and currently does not want to go back to bed and states she likes the wheelchair. She is eating, drinking and moving her bowels. She has a large ecchymotic area to the right hip dark purple in nature approx 14cm W X 7cmL. stable. She has some mild shortening of right leg. full code as she is invoked with guardiflor Lindo NP [address] [facility], [address], [place], [address], [facility] [employer] [facility] 12/22/2024 09:40:39 12/26/2024 text/html Pt is seen for a n acute rounding visit. 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 She currently does not have family able to help with her medical decisions and remains with delusions and hallucinations on a regular basis. She is currently under court quardianship which is due for renewal. She also continues with poor safety awareness and and overestimates what she is able to do. Recently, she was impulsive and had a fall resulting in a right greater trochanter and right superior pubic ramus fracture determined to be nonsurgical. She was seen at [facility] on 12/21 and returned to facility later that day. She continues to be followed by rehabilitation psychologist and started on olanzapine for behaviors. On exam, Vira is motoring around in her wheelchair without complaint today. NAD. She is headed to the activity room. She is mentioning she is having a baby today, possibly twins. full code as she is invoked with guardiflor Lindo NP [address] [facility], [address], [place], [address], [facility] [employer] [facility] 12/26/2024 19:07:34 12/30/2024 text/html Pt is an 84 yo f emale seen for an acute rounding visit. PMH: Metabolic encephalopathy, uti, covid 19, gout, visual hallucinations, ams type II DM, mdd, htn, hld, atherosclerotic , heart disease, gerd, dm, hypothyryoid, thombocythyemia. Vira is seen today for a skin tear to her left lower lateral mar approx 1.3 cm by 0.8cm long well approx and bleeding controlled. Will recommend ns wash, pat dry, dsd daily until healed. Looks like a sharp piece of her wheelchair may have contributed to the skin tear. She is also healing from recent right hip and pubic rami fx. She denies any pain today. On exam, Vira is motoring around in her wheelchair without complaint today. NAD. full code as she is invoked with guardian Melinda Lindo NP [address] [facility], [address], [place], [address], [facility] [employer] 12/30/2024 13:18:10 OBGyn Episode No OBEpisode recorded.
--- OUTSIDE RECORDS SUMMARY | 2025-01-18 13:54 | XMS_ITS | Encounter Summary ---
Author Organization [facility] Address [address] [place] [address] Care Team Providers Care Childbirth Educator Name Role Phone Rommel Mendez MD Primary Care Provider [phone] Encounter Details Date Type Department Care Team (Late st Contact Info) Description 09/08/2024 Lab Requisition [facility] - Main Lab [address] [place] [address] Rommel Mendez MD [address] [place] [address] [address] [place], [address] Type 2 diabetes mellitus without complications (CMS/HCC V24, CMS/HCC V28) Social History Tobacco Use Types Packs/Day Years [...] EST Type 2 diabetes mellitus without complications (CMS/[facility]) documented in this encounter Results * (ABNORMAL) Complete blood count (09/08/2024 7:11 AM EST) WBC 10.5 4.8 - 10.8 K/mcL LAB HEMETOLOGY METHOD 09/08/2024 11:09 AM EST [facility] RBC 5.00(H) 3.80 - 4.80 M/mcL LAB HEMETOLOGY METHOD 09/08/2024 11:09 AM EST [facility] Hemoglobin 11.7 11.5 - 16.0 g/dL LAB HEMETOLOGY METHOD 09/08/2024 11:09 AM [facility] Hematocrit 40.0 35.0 - 47.0 % LAB HEMETOLOGY METHOD 09/08/2024 11:09 AM [facility] MCV 79.4 79.0 - 98.0 FL LAB HEMETOLOGY METHOD 09/08/2024 11:09 AM [facility] MCH 23.2(L) 27.0 - 32.0 pcg LAB HEMETOLOGY METHOD 09/08/2024 11:09 AM [facility] MCHC 29.3(L) 32.0 - 37.0 g/dL LAB HEMETOLOGY METHOD 09/08/2024 11:09 AM [facility] RDW 20.3(H) 11.0 - 15.0 % LAB HEMETOLOGY METHOD 09/08/2024 11:09 AM [facility] Platelets 651(H) 130 - 400 K/mcL LAB HEMETOLOGY METHOD 09/08/2024 11:09 AM [facility] MPV 9.9 7.0 - 11.0 FL LAB HEMETOLOGY METHOD 09/08/2024 11:09 AM [facility] NRBC 0.0 <1.0 % LAB HEMETOLOGY METHOD 09/08/2024 11:09 AM [facility] NRBC Absolute 0.00 <0.10 K/mcL LAB HEMETOLOGY METHOD 09/08/2024 11:09 AM [facility] Blood Venous blood specimen / Unknown Venipuncture / Unknown 09/08/2024 7:11 AM EST 09/08/2024 10:29 AM EST us Rommel Mendez MD LAB BLOOD ORDERABLES Final Resul t [facility] [address] [place] [address], documented in this encounter Visit Diagnoses Diagnosis Type 2 diabetes mellitus without complications (CMS/HCC V24, CMS/HCC V28) documented in this encounter Care Teams Childbirth Educator Relationship Specialty Start Date End Date Rommel Mendez MD [address] [place] [address] PCP - General Family Medicine 09/01/24 documented as of this encounter
[2025-01-18] MEDS: iohexoL 350 MG/ML 100 ML INFUS..BTL IV (13:56)
== END 2025-01-18 13:18 | disposition home or self-care (01) ==
LOC: HO.CT 13:17
PROVIDERS: Visit Provider Nurse Practitioner
DX: R91.1 Solitary pulmonary nodule (principal)
CPT/HCPCS: 71260; Q9967

== ENCOUNTER → 2025-01-18 13:29 | Outpatient (BNV) | payer MEDICARE, MEDICAID, SELFPAY | PROVIDERS: Visit Provider Radiology Diagnostic Radiology | DX: R91.1 Solitary pulmonary nodule (principal) | CPT/HCPCS: 71260 ==